=== PATIENT | male | born 1965 | race Caucasian/White ===

== ENCOUNTER → 2017-07-24 | Outpatient (CLI) | payer OTHER ==
--- NOTE | 2017-07-24 16:59 | CONS ---
CONSULTATION Consultation note for sleep apnea. PRIMARY CARE PHYSICIAN: Dr. Valderrama. A 52-year-old male patient who came to the office because of concerns of sleep apnea. He has very disrupted sleep. The patient gets home in the afternoon at around 6 cm. He drinks somewhere between 6-15 beers. He goes to bed around 8:30 wakes up and gets out of bed around 5:30. He can fall asleep easily. However his sleep is fragmented and wakes up constantly throughout the night. His has noted increased respiratory effort and at times he wakes up gasping for air. At the same time he has been snoring excessively. During the day he has excessive hypersomnia and sleepiness with [place] score of 16. Sleep is fragmented as mentioned and the patient wakes up, either due to increased respiratory efforts and other times for urination. No recent weight gain or weight loss. He has been a mouth breather all his life. He has smoked cigarettes in addition. PAST MEDICAL HISTORY: 1. Hypertension. 2. Acid reflux. PAST SURGICAL HISTORY: Includes appendectomy. DRUG ALLERGIES: PENICILLIN. OUTPATIENT MEDICATION LIST: Includes lisinopril 20 mg p.o. twice a day, bisoprolol 25 mg p.o. daily, omeprazole 20 mg p.o. daily and fish oil. SOCIAL HISTORY: The patient is a 1-1/2 pack a day smoker. He drinks 6-15 beers on a daily basis. No history of IV drugs. No history of substance abuse FAMILY HISTORY: Negative for sleep apnea. REVIEW OF SYSTEMS: 12-point review of system was done. Positive findings are mentioned above in the history of present illness. The patient admits to have excessive fatigue and sleepiness. The patient admits to have snoring and apneas at night. He has nocturia. He grinds his teeth. He has occasional heartburns and restlessness in his lower extremities. He does not do any sleep talking or sleepwalking. No anxiety or panic attack. No palpitations. No chest pain. No claustrophobia. EXAMINATION: BP is 133/73, pulse 66, respirations 16, temperature 97.3 saturation 96% on room air. Weight is 229. Height is 5 feet 10 inches. Neck size is 16 inches. BMI 32.3. GENERAL APPEARANCE: Calm, comfortable. HEENT Mallampati class IV. There is no goiter or neck masses. Head is atraumatic, atraumatic. LUNGS: Clear to auscultation. HEART: Sounds regular rhythm. Normal S1, S2. No S3, S4. No murmurs. ABDOMEN: Soft, nontender. No organomegaly. No direct tenderness, rebound or guarding. EXTREMITIES: No edema. No cyanosis or clubbing. NEUROLOGIC: Alert and oriented x3. No focal neurological deficits. Skin is negative for ulceration wounds. IMPRESSION: 1. Obstructive sleep apnea suspected clinically. The patient's sleep is severely fragmented. The patient has frequent nocturnal arousals. This is partly related to his sleep breathing disorder. Alcohol ingestion in excessive amounts also is contributing to his frequent nocturnal arousals and increased nocturia. 2. Hypertension. PLAN: 1. Recommend cutting down on alcohol consumption especially during bedtime. 2. Implement good sleep hygiene measures. 3. Proceed with a screening polysomnogram looking for any significant sleep breathing disorder and treat accordingly. MARTY / BESSN: [id number] /
== END ==
LOC: SLEEP 13:51
PROVIDERS: ATTEND Internal Medicine Critical Care Medicine
DX: G47.30 Sleep apnea, unspecified (principal); I10 Essential (primary) hypertension; F17.200 Nicotine dependence, unspecified, uncomplicated; Z79.899 Other long term (current) drug therapy; Z88.0 Allergy status to penicillin
CPT/HCPCS: 99211

== ENCOUNTER 2017-11-06 10:56 | Inpatient (IN) | payer OTHER ==
[2017-11-06] MEDS ORDERED: SODIUM CHLORIDE 0.9% 1,000 ML IV STA (11:19)
[2017-11-06] MEDS ORDERED: SODIUM CHLORIDE 0.9% 500 ML IV STA (11:19)
[2017-11-06] MEDS ORDERED: DILTIAZEM 5 MG/ML 5 ML VIAL IVP STA (11:20)
[2017-11-06] MEDS ORDERED: DILTIAZEM 125 MG in SODIUM CHLORIDE 0.9% 100 ML IV ONE (11:20)
--- NOTE | 2017-11-06 11:48 | ED ---
General Adult HPI - General Chief complaint: Shortness of Breath Stated complaint: AFIB Time Seen by Provider: 11/06/17 11:18 Source: patient, RN notes reviewed, old records reviewed Mode of arrival: ambulatory Limitations: no limitations - History of Present Illness Initial comments: This is a 52-year-old male to the ER for evaluation. Patient comes in with significant shortness of breath weakness and lightheadedness. Patient denies chest pain. Patient states that significant shortness breath going on for about 2 weeks now. No fevers. Mild nausea and occasional feeling of sickness. Denies chest pain. Patient states his exertional shortness of breath is significantly increasing. Patient does have asked history of smoking and has not smoked since this past weekend. No recent change in medications. - Related Data Home Medications Medication Instructions Recorded Confirmed Bisoprolol-Hctz 5-6.25 mg [Ziac 1 tab PO DAILY 01/22/14 11/06/17 5-6.25 MG] Lisinopril [Zestril] 40 mg PO DAILY 01/22/14 11/06/17 Multivitamin [Men's Multi-Vitamin] 1 tab PO DAILY 01/22/14 11/06/17 Brenda-C 500 mg PO DAILY 11/06/17 11/06/17 Fish Oil/Dha/Epa [Fish Oil 1,200 1 cap PO DAILY 11/06/17 11/06/17 mg Fish Oil] Omeprazole [PriLOSEC] 20 mg PO DAILY 11/06/17 11/06/17 Allergies Allergy/AdvReac Type Severity Reaction Status Date / Time Penicillins Allergy Unknown Verified 11/06/17 11:49 Childhood Review of Systems ROS Statement: Those systems with pertinent positive or pertinent negative responses have been documented in the HPI. ROS Other: All systems not noted in ROS Statement are negative. Past Medical History Past Medical History: GERD/Reflux, GI Bleed, Hypertension History of Any Multi-Drug Resistant Organisms: None Reported Past Surgical History: Appendectomy Past Anesthesia/Blood Transfusion Reactions: No Reported Reaction Past Psychological History: No Psychological Hx Reported Smoking Status: Current every day smoker Past Alcohol Use History: Daily Past Drug Use History: None Reported General Exam Limitations: no limitations General appearance: alert, in no apparent distress Head exam: Present: atraumatic, normocephalic, normal inspection Eye exam: Present: normal appearance, PERRL, EOMI. Absent: scleral icterus, conjunctival injection, periorbital swelling ENT exam: Present: normal exam, mucous membranes moist Neck exam: Present: normal inspection. Absent: tenderness, meningismus, lymphadenopathy Respiratory exam: Present: normal lung sounds bilaterally, wheezes. Absent: respiratory distress, rales, rhonchi, stridor Cardiovascular Exam: Present: tachycardia, irregular rhythm, normal heart sounds. Absent: systolic murmur, diastolic murmur, rubs, gallop, clicks GI/Abdominal exam: Present: soft, normal bowel sounds. Absent: distended, tenderness, guarding, rebound, rigid Extremities exam: Present: normal inspection, full ROM, normal capillary refill. Absent: tenderness, pedal edema, joint swelling, calf tenderness Back exam: Present: normal inspection Neurological exam: Present: alert, oriented X3, CN II-XII intact Psychiatric exam: Present: normal affect, normal mood Skin exam: Present: warm, dry, intact, normal color. Absent: rash Course Vital Signs 11/06/17 11/06/17 11:19 11:59 Temperature 98.6 F Pulse Rate 114 H 115 H Respiratory 20 20 Rate Blood Pressure 128/80 130/78 O2 Sat by Pulse 95 96 Oximetry - Reevaluation(s) Reevaluation #1: 11/06/17 12:40 Patient responding well to heart rate treatment and control Reevaluation #2: 11/06/17 12:40 Patient and family explained at length diagnosis and treatment. Questions are answered EKG Findings - EKG Comments: EKG Findings:: EKG shows A. fib with RVR rate 129, QRS 100, QTC 413 Medical Decision Making - Medical Decision Making 52 male the ER for evaluation of shortness of breath, new onset atrial fibrillation, nature for ablation with RVR. Patient be admitted for heart rate control cardiology evaluation - Lab Data Result diagrams: 11/06/17 11:30 11/06/17 11:30 Lab Results 11/06/17 11/06/17 11/06/17 Range/Units 11:30 11:30 11:30 WBC 12.0 H (3.8-10.6) k/uL RBC 4.50 (4.30-5.90) m/uL Hgb 14.0 (13.0-17.5) gm/dL Hct 42.0 (39.0-53.0) % MCV 93.2 (80.0-100.0) fL MCH 31.2 (25.0-35.0) pg MCHC 33.4 (31.0-37.0) g/dL RDW 13.8 (11.5-15.5) % Plt Count 186 (150-450) k/uL Neutrophils % 77 % Lymphocytes % 12 % Monocytes % 7 % Eosinophils % 1 % Basophils % 1 % Neutrophils # 9.2 H (1.3-7.7) k/uL Lymphocytes # 1.4 (1.0-4.8) k/uL Monocytes # 0.9 (0-1.0) k/uL Eosinophils # 0.1 (0-0.7) k/uL Basophils # 0.1 (0-0.2) k/uL PT (9.0-12.0) sec INR (<1.2) APTT (22.0-30.0) sec Sodium 139 (137-145) mmol/L Potassium 3.9 (3.5-5.1) mmol/L Chloride 106 (98-107) mmol/L Carbon Dioxide 24 (22-30) mmol/L Anion Gap 9 mmol/L BUN 12 (9-20) mg/dL Creatinine 0.69 (0.66-1.25) mg/dL Est GFR (MDRD) Af Amer >60 (>60 ml/min/1.73 sqM) Est GFR (MDRD) Non-Af >60 (>60 ml/min/1.73 sqM) Glucose 109 H (74-99) mg/dL Calcium 9.7 (8.4-10.2) mg/dL Magnesium 1.6 (1.6-2.3) mg/dL Total Bilirubin 2.5 H (0.2-1.3) mg/dL AST 14 L (17-59) U/L ALT 38 (21-72) U/L Alkaline Phosphatase 68 (38-126) U/L Total Creatine Kinase 65 (55-170) U/L CK-MB (CK-2) 0.5 (0.0-2.4) ng/mL CK-MB (CK-2) Rel Index 0.8 Troponin I <0.012 (0.000-0.034) ng/mL Total Protein 6.4 (6.3-8.2) g/dL Albumin 3.8 (3.5-5.0) g/dL TSH 0.646 (0.465-4.680) mIU/L 11/06/17 Range/Units 11:30 WBC (3.8-10.6) k/uL RBC (4.30-5.90) m/uL Hgb (13.0-17.5) gm/dL Hct (39.0-53.0) % MCV (80.0-100.0) fL MCH (25.0-35.0) pg MCHC (31.0-37.0) g/dL RDW (11.5-15.5) % Plt Count (150-450) k/uL Neutrophils % % Lymphocytes % % Monocytes % % Eosinophils % % Basophils % % Neutrophils # (1.3-7.7) k/uL Lymphocytes # (1.0-4.8) k/uL Monocytes # (0-1.0) k/uL Eosinophils # (0-0.7) k/uL Basophils # (0-0.2) k/uL PT 10.3 (9.0-12.0) sec INR 1.1 (<1.2) APTT 23.6 (22.0-30.0) sec Sodium (137-145) mmol/L Potassium (3.5-5.1) mmol/L Chloride (98-107) mmol/L Carbon Dioxide (22-30) mmol/L Anion Gap mmol/L BUN (9-20) mg/dL Creatinine (0.66-1.25) mg/dL Est GFR (MDRD) Af Amer (>60 ml/min/1.73 sqM) Est GFR (MDRD) Non-Af (>60 ml/min/1.73 sqM) Glucose (74-99) mg/dL Calcium (8.4-10.2) mg/dL Magnesium (1.6-2.3) mg/dL Total Bilirubin (0.2-1.3) mg/dL AST (17-59) U/L ALT (21-72) U/L Alkaline Phosphatase (38-126) U/L Total Creatine Kinase (55-170) U/L CK-MB (CK-2) (0.0-2.4) ng/mL CK-MB (CK-2) Rel Index Troponin I (0.000-0.034) ng/mL Total Protein (6.3-8.2) g/dL Albumin (3.5-5.0) g/dL TSH (0.465-4.680) mIU/L - Radiology Data Radiology results: report reviewed (Chest x-rays negative for acute disease), image reviewed Disposition Clinical Impression: Atrial fibrillation with RVR Disposition: ADMITTED IP TO THIS HOSP Condition: Good Referrals: Chandler Valderrama MD [Primary Care Provider] - 1-2 days
[2017-11-06 11:50] LABS: Basophils # (A) 0.1 k/uL (0-0.2); Basophils % (A) 1 %; Eosinophils # (A) 0.1 k/uL (0-0.7); Eosinophils % (A) 1 %; Lymphocytes # (A) 1.4 k/uL (1.0-4.8); Lymphocytes % (A) 12 %; MCH 31.2 pg (25.0-35.0); MCHC 33.4 g/dL (31.0-37.0); MCV 93.2 fL (80.0-100.0); Mean Platelet Volume 8.5; Monocytes # (A) 0.9 k/uL (0-1.0); Monocytes % (A) 7 %; Neutrophils # (A) 9.2 k/uL (1.3-7.7); Neutrophils % (A) 77 %; Platelet Count 186 k/uL (150-450); RDW 13.8 % (11.5-15.5)
[2017-11-06 11:58] LABS: INR 1.1 (<1.2); Partial Thromboplastin Time 23.6 sec (22.0-30.0); Prothrombin Time 10.3 sec (9.0-12.0)
[2017-11-06 12:05] LABS: ALT 38 U/L (21-72); AST 14 U/L (17-59); Albumin 3.8 g/dL (3.5-5.0); Alkaline Phosphatase 68 U/L (38-126); Anion Gap 9 mmol/L; Blood Urea Nitrogen 12 mg/dL (9-20); Calcium 9.7 mg/dL (8.4-10.2); Carbon Dioxide 24 mmol/L (22-30); Chloride 106 mmol/L (98-107); Glucose 109 mg/dL (74-99); Potassium 3.9 mmol/L (3.5-5.1); Sodium 139 mmol/L (137-145); Total Bilirubin 2.5 mg/dL (0.2-1.3); Total Protein 6.4 g/dL (6.3-8.2)
[2017-11-06 12:20] LABS: Creatine Kinase 65 U/L (55-170)
[2017-11-06 12:31] LABS: Creatine Kinase MB 0.5 ng/mL (0.0-2.4); Troponin I <0.012 ng/mL (0.000-0.034)
[2017-11-06] MEDS ORDERED: NITROGLYCERIN SL TABS 0.4 MG TAB SUBLINGUAL PRN (12:38)
[2017-11-06] MEDS ORDERED: ASPIRIN 81 MG PO STA (12:38)
[2017-11-06] MEDS ORDERED: HEPARIN SODIUM,PORCINE 5,000 UNIT/ML 1 ML VIAL IV ONE (12:38)
--- NOTE | 2017-11-06 12:40 | XR ---
EXAMINATION TYPE: XR chest 2V DATE OF EXAM: 11/06/2017 COMPARISON: 06/22/2011 TECHNIQUE: PA and lateral views submitted. HISTORY: Shortness of breath FINDINGS: The heart is enlarged and there is a diffuse interstitial pattern. Small bilateral effusion and basil ar infiltrate or atelectasis noted. Hypertrophic and degenerative change of the spine. No pneumothora x. Arthropathy of the shoulders. IMPRESSION: 1. Bilateral infiltrate and small effusion with cardiomegaly. Underlying venous congestion in the dif ferential diagnosis.
[2017-11-06] MEDS: HEPARIN SOD,PORK IN 0.45% NACL 25,000 UNIT in 0.45% NACL 1 500ML.BAG IV SCH (13:11)
[2017-11-06 17:27] LABS: D-Dimer 0.88 mg/L FEU (<0.60)
[2017-11-06 17:31] LABS: Partial Thromboplastin Time 27.1 sec (22.0-30.0)
[2017-11-06 17:43] LABS: Creatine Kinase 60 U/L (55-170)
[2017-11-06] MEDS: HEPARIN SODIUM,PORCINE 5,000 UNIT/ML 1 ML VIAL IV PRN (17:47)
[2017-11-06 17:54] LABS: Creatine Kinase MB 0.5 ng/mL (0.0-2.4); Troponin I <0.012 ng/mL (0.000-0.034)
[2017-11-06] MEDS: METOPROLOL TARTRATE 50 MG TAB PO SCH (19:08)
[2017-11-06] MEDS: AZITHROMYCIN 250 MG TAB PO SCH (20:55)
[2017-11-06] MEDS: cefTRIAXone IN SWFI 1,000 MG/10 ML SYRINGE IVP SCH (20:55)
[2017-11-07 00:29] LABS: Creatine Kinase 60 U/L (55-170)
[2017-11-07 00:42] LABS: Creatine Kinase MB 0.5 ng/mL (0.0-2.4); Troponin I <0.012 ng/mL (0.000-0.034)
[2017-11-07 06:36] LABS: Platelet Count 177 k/uL (150-450)
[2017-11-07 06:53] LABS: Cholesterol 143 mg/dL (<200); HDL Cholesterol 39 mg/dL (40-60); LDL Cholesterol,Calculated 91 mg/dL (0-99); Triglycerides 65 mg/dL (<150)
[2017-11-07] MEDS: HEPARIN SODIUM,PORCINE 5,000 UNIT/ML 1 ML VIAL IV PRN ×2 (07:27→15:12)
[2017-11-07] MEDS: METOPROLOL TARTRATE 50 MG TAB PO SCH ×2 (07:29→22:25)
[2017-11-07] MEDS: AZITHROMYCIN 250 MG TAB PO SCH (07:30)
--- NOTE | 2017-11-07 07:44 | P.HPIM ---
History of Present Illness H&P Date: 11/07/17 Chief Complaint: Shortness of breath. This is a history of physical and 52-year-old white male with history of hypertension who came to me yesterday with significant short of breath. EKG showed new onset atrial fibrillation. The patient was admitted and is now on Cardizem drip. The patient had significant dyspnea and has bilateral pleural effusions. He's been covered for pneumonia at this time. No significant fever or chills. No overt chest pressure per se. No voiding difficulties are noted. Review of Systems Constitutional: Denies chills, Denies fever Eyes: denies blurred vision, denies pain Ears, nose, mouth and throat: Denies headache, Denies sore throat Cardiovascular: Reports chest pain, Reports dyspnea on exertion, Denies shortness of breath Respiratory: Denies cough Gastrointestinal: Denies abdominal pain, Denies diarrhea, Denies nausea, Denies vomiting Integumentary: Denies pruritus, Denies rash Neurological: Denies numbness, Denies weakness Psychiatric: Denies anxiety, Denies depression Past Medical History Past Medical History: GERD/Reflux, GI Bleed, Hypertension Additional Past Medical History / Comment(s): Upper GI bleed, diverticular dx. History of Any Multi-Drug Resistant Organisms: None Reported Past Surgical History: Appendectomy Additional Past Surgical History / Comment(s): 2013 colonoscopy, EGD Past Anesthesia/Blood Transfusion Reactions: No Reported Reaction Past Psychological History: No Psychological Hx Reported Additional Psychological History / Comment(s): Pt resides with his spouse of almost 30 yrs. He is independent. Smoking Status: Current every day smoker Past Alcohol Use History: Daily Additional Past Alcohol Use History / Comment(s): Pt states he started smoking in about 1981 and is between a pack and a pack and a half a day smoker. He states he drinks beer daily. Amount varies, depending on the day anywhere from 6 -12 beers. Past Drug Use History: None Reported - Past Family History Father Family Medical History: Congestive Heart Failure (CHF) Additional Family Medical History / Comment(s): Father of CHF at the age of 68yrs. Mother Additional Family Medical History / Comment(s): Mother at the age of 62 or 63 yrs from myasthenia gravis. Medications and Allergies Home Medications Medication Instructions Recorded Confirmed Type Bisoprolol-Hctz 5-6.25 mg [Ziac 1 tab PO DAILY 01/22/14 11/06/17 History 5-6.25 MG] Lisinopril [Zestril] 40 mg PO DAILY 01/22/14 11/06/17 History Multivitamin [Men's Multi-Vitamin] 1 tab PO DAILY 01/22/14 11/06/17 History Brenda-C 500 mg PO DAILY 11/06/17 11/06/17 History Fish Oil/Dha/Epa [Fish Oil 1,200 1 cap PO DAILY 11/06/17 11/06/17 History mg Fish Oil] Omeprazole [PriLOSEC] 20 mg PO DAILY 11/06/17 11/06/17 History Allergies Allergy/AdvReac Type Severity Reaction Status Date / Time Penicillins Allergy Unknown Verified 11/06/17 11:49 Childhood Physical Exam Vitals: Vital Signs Temp Pulse Pulse Resp BP BP BP 11/07/17 03:33 97 F L 93 16 111/75 11/07/17 00:00 97.1 F L 99 16 118/78 11/06/17 21:00 11/06/17 20:00 97.1 F L 89 16 109/68 11/06/17 16:00 96.9 F L 99 18 116/71 11/06/17 15:01 97.6 F 91 18 128/76 11/06/17 14:28 93 18 112/80 11/06/17 12:52 97.9 F 95 18 127/78 11/06/17 11:59 115 H 20 130/78 11/06/17 11:19 98.6 F 114 H 20 128/80 Pulse Ox 11/07/17 03:33 93 L 11/07/17 00:00 95 11/06/17 21:00 94 L 11/06/17 20:00 96 11/06/17 16:00 95 11/06/17 15:01 96 11/06/17 14:28 95 11/06/17 12:52 97 11/06/17 11:59 96 11/06/17 11:19 95 Intake and Output 11/06/17 11/07/17 11/07/17 22:59 06:59 14:59 Intake Total 92 179.648 221.272 Balance 92 179.648 221.272 Intake: Intake, IV Titration 92 179.648 221.272 Amount Heparin Sod,Pork in 0.45% 92 179.648 221.272 NaCl 25,000 unit In 0.45 % NaCl 1 500ml.bag @ 9.59 UNITS/KG/HR 20 mls/hr IV .Q24H [facility] Rx#:[id number] Other: Voiding Method Toilet Toilet # Voids 1 1 Weight 104.5 kg - Constitutional General appearance: no acute distress - EENT Eyes: EOMI - Neck Neck: no lymphadenopathy - Respiratory Respiratory: bilateral: CTA - Cardiovascular Rhythm: irregularly irregular Heart sounds: normal: S1, S2 - Gastrointestinal General gastrointestinal: no organomegaly, soft, no tenderness Results CBC & Chem 7: 11/07/17 06:04 11/06/17 11:30 Labs: Abnormal Lab Results - Last 24 Hours (Table) 11/06/17 11/06/17 11/06/17 Range/Units 11:30 11:30 17:08 WBC 12.0 H (3.8-10.6) k/uL Neutrophils # 9.2 H (1.3-7.7) k/uL APTT (22.0-30.0) sec D-Dimer 0.88 H (<0.60) mg/L FEU Glucose 109 H (74-99) mg/dL Total Bilirubin 2.5 H (0.2-1.3) mg/dL AST 14 L (17-59) U/L HDL Cholesterol (40-60) mg/dL 11/07/17 11/07/17 Range/Units 06:04 06:04 WBC (3.8-10.6) k/uL Neutrophils # (1.3-7.7) k/uL APTT 30.3 H (22.0-30.0) sec D-Dimer (<0.60) mg/L FEU Glucose (74-99) mg/dL Total Bilirubin (0.2-1.3) mg/dL AST (17-59) U/L HDL Cholesterol 39 L (40-60) mg/dL Thrombosis Risk Factor Assmnt - Choose All That Apply Any of the Below Risk Factors Present?: Yes Each Factor Represents 1 point: Age 41-60 years, Obesity (BMI >25) Other Risk Factors: No Other congenital or acquired thrombophilia - If yes, enter type in comment: No Thrombosis Risk Factor Assessment Total Risk Factor Score: 2 Thrombosis Risk Factor Assessment Level: Low Risk Assessment and Plan (1) Hypertension Current Visit: Yes Status: Acute Code(s): I10 - ESSENTIAL (PRIMARY) HYPERTENSION SNOMED Code(s): 81824527 (2) Atrial fibrillation with RVR Current Visit: Yes Status: Acute Code(s): I48.91 - UNSPECIFIED ATRIAL FIBRILLATION SNOMED Code(s): 023970637001185 Plan: The patient presents with new onset atrial fibrillation. Question need increase Cardizem drip today. Otherwise, mule developer consulted. New. Check CBC and CMP in a.m. Thyroid studies are pending. Await echocardiogram. CODE STATUS is full. See orders otherwise.
[2017-11-07] MEDS: DILTIAZEM 125 MG in SODIUM CHLORIDE 0.9% 100 ML IV SCH ×2 (08:00→22:16)
[2017-11-07] MEDS: HYDROcodone/APAP 5-325MG 1 EACH TAB PO PRN ×3 (08:08→22:32)
[2017-11-07] MEDS: cefTRIAXone IN SWFI 1,000 MG/10 ML SYRINGE IVP SCH (08:11)
--- NOTE | 2017-11-07 08:31 | P.CRDCN ---
History of Present Illness Consult date: 11/07/17 Requesting physician: Chandler Valderrama Consult reason: atrial fibrillation Chief complaint: Shortness of breath History of present illness: This a 52-year-old gentleman with history of hypertension, nicotine use, patient's smokes one to 2 packs of cigarettes per day, 6-12 beers per day, strong family history of premature coronary artery disease. 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 He did notice as of last weekend that he would become quite short of breath when he was climbing stairs, he then states on Sunday, that he began coughing, felt as though he may have pneumonia which she has had in the past. He took some Mucinex and states that he slept all day Sunday, on Sunday he again began coughing, he states initially he was coughing clear sputum then it changed to dark sputum. He also states that he continued to be significantly short of breath. He went to see his primary care physician, Dr. Valderrama, and EKG was performed in the office which showed atrial fibrillation with rapid ventricular response and hence the patient was admitted to the hospital for further evaluation. EKG on arrival here showed atrial fibrillation with a rapid ventricular response. White blood cell count 12.0 , hemoglobin 14, platelet count 186, d-dimer 0.8, potassium 3.9, BUN 12, creatinine 0.6. Magnesium 1.6. Troponins negative 3. BNP 2960. Chest x-ray revealed bilateral infiltrate and small effusion with cardiomegaly. Underlying venous congestion in the differential as well. Blood pressure 112/60, heart rate this morning in the 90s, 95% on 2 L of oxygen. Patient is currently on IV heparin as well as Cardizem drip at 10 mg per hour. IV antibiotics were initiated, along with Zithromax initiated. At the time of my examination this morning, patient continues to cough of dark sputum, mild shortness of breath, mild palpitations. Past Medical History Past Medical History: GERD/Reflux, GI Bleed, Hypertension Additional Past Medical History / Comment(s): Upper GI bleed, diverticular dx. History of Any Multi-Drug Resistant Organisms: None Reported Past Surgical History: Appendectomy Additional Past Surgical History / Comment(s): 2013 colonoscopy, EGD Past Anesthesia/Blood Transfusion Reactions: No Reported Reaction Past Psychological History: No Psychological Hx Reported Additional Psychological History / Comment(s): Pt resides with his spouse of almost 30 yrs. He is independent. Smoking Status: Current every day smoker Past Alcohol Use History: Daily Additional Past Alcohol Use History / Comment(s): Pt states he started smoking in about 1981 and is between a pack and a pack and a half a day smoker. He states he drinks beer daily. Amount varies, depending on the day anywhere from 6 -12 beers. Past Drug Use History: None Reported - Past Family History Father Family Medical History: Congestive Heart Failure (CHF) Additional Family Medical History / Comment(s): Father of CHF at the age of 68yrs. Mother Additional Family Medical History / Comment(s): Mother at the age of 62 or 63 yrs from myasthenia gravis. Medications and Allergies Home Medications Medication Instructions Recorded Confirmed Type Bisoprolol-Hctz 5-6.25 mg [Ziac 1 tab PO DAILY 01/22/14 11/06/17 History 5-6.25 MG] Lisinopril [Zestril] 40 mg PO DAILY 01/22/14 11/06/17 History Multivitamin [Men's Multi-Vitamin] 1 tab PO DAILY 01/22/14 11/06/17 History Brenda-C 500 mg PO DAILY 11/06/17 11/06/17 History Fish Oil/Dha/Epa [Fish Oil 1,200 1 cap PO DAILY 11/06/17 11/06/17 History mg Fish Oil] Omeprazole [PriLOSEC] 20 mg PO DAILY 11/06/17 11/06/17 History Allergies Allergy/AdvReac Type Severity Reaction Status Date / Time Penicillins Allergy Unknown Verified 11/06/17 11:49 Childhood Physical Exam Vitals: Vital Signs Temp Pulse Pulse Resp BP BP BP 11/07/17 07:55 97.2 F L 78 20 110/70 11/07/17 03:33 97 F L 93 16 111/75 11/07/17 00:00 97.1 F L 99 16 118/78 11/06/17 21:00 11/06/17 20:00 97.1 F L 89 16 109/68 11/06/17 16:00 96.9 F L 99 18 116/71 11/06/17 15:01 97.6 F 91 18 128/76 11/06/17 14:28 93 18 112/80 11/06/17 12:52 97.9 F 95 18 127/78 11/06/17 11:59 115 H 20 130/78 11/06/17 11:19 98.6 F 114 H 20 128/80 Pulse Ox 11/07/17 07:55 91 L 11/07/17 03:33 93 L 11/07/17 00:00 95 11/06/17 21:00 94 L 11/06/17 20:00 96 11/06/17 16:00 95 11/06/17 15:01 96 11/06/17 14:28 95 11/06/17 12:52 97 11/06/17 11:59 96 11/06/17 11:19 95 Intake and Output 11/06/17 11/07/17 11/07/17 22:59 06:59 14:59 Intake Total 92 179.648 221.272 Balance 92 179.648 221.272 Intake: Intake, IV Titration 92 179.648 221.272 Amount Heparin Sod,Pork in 0.45% 92 179.648 221.272 NaCl 25,000 unit In 0.45 % NaCl 1 500ml.bag @ 9.59 UNITS/KG/HR 20 mls/hr IV .Q24H [facility] Rx#:[id number] Other: Voiding Method Toilet Toilet # Voids 1 1 Weight 104.5 kg PHYSICAL EXAMINATION: HEENT: Head is atraumatic, normocephalic. Pupils equal, round. Neck is supple. There is no elevated jugular venous pressure. HEART EXAMINATION: Heart S1 and S2 irregularly irregular CHEST EXAMINATION: And's reveal decreased air exchange with fine crackles to the bases. ABDOMEN: Soft, nontender. Bowel sounds are heard. No organomegaly noted. EXTREMITIES: 2+ peripheral pulses with no evidence of peripheral edema and no calf tenderness noted. NEUROLOGIC patient is awake, alert and oriented -3. . Results 11/07/17 06:04 11/06/17 11:30 Cardiac Enzymes 11/06/17 11/06/17 11/06/17 Range/Units 11:30 11:30 17:08 AST 14 L (17-59) U/L CK-MB (CK-2) 0.5 0.5 (0.0-2.4) ng/mL Troponin I <0.012 <0.012 (0.000-0.034) ng/mL 11/06/17 Range/Units 23:54 AST (17-59) U/L CK-MB (CK-2) 0.5 (0.0-2.4) ng/mL Troponin I <0.012 (0.000-0.034) ng/mL Coagulation 11/06/17 11/06/17 11/06/17 Range/Units 11:30 17:08 23:54 PT 10.3 (9.0-12.0) sec APTT 23.6 27.1 27.9 (22.0-30.0) sec 11/07/17 Range/Units 06:04 PT (9.0-12.0) sec APTT 30.3 H (22.0-30.0) sec Lipids 11/07/17 Range/Units 06:04 Triglycerides 65 (<150) mg/dL Cholesterol 143 (<200) mg/dL HDL Cholesterol 39 L (40-60) mg/dL CBC 11/06/17 11/07/17 Range/Units 11:30 06:04 WBC 12.0 H (3.8-10.6) k/uL RBC 4.50 (4.30-5.90) m/uL Hgb 14.0 (13.0-17.5) gm/dL Hct 42.0 (39.0-53.0) % Plt Count 186 177 (150-450) k/uL Comprehensive Metabolic Panel 11/06/17 Range/Units 11:30 Sodium 139 (137-145) mmol/L Potassium 3.9 (3.5-5.1) mmol/L Chloride 106 (98-107) mmol/L Carbon Dioxide 24 (22-30) mmol/L BUN 12 (9-20) mg/dL Creatinine 0.69 (0.66-1.25) mg/dL Glucose 109 H (74-99) mg/dL Calcium 9.7 (8.4-10.2) mg/dL AST 14 L (17-59) U/L ALT 38 (21-72) U/L Alkaline Phosphatase 68 (38-126) U/L Total Protein 6.4 (6.3-8.2) g/dL Albumin 3.8 (3.5-5.0) g/dL Current Medications Generic Name Dose Route Start Last Admin Trade Name Freq PRN Reason Stop Dose Admin Hydrocodone Bitart/Acetaminophen 1 each 11/07/17 07:53 Vanzant 5-325 PO Q6HR PRN Pain Aspirin 325 mg 11/07/17 09:00 11/07/17 07:30 Aspirin PO 325 mg DAILY [facility] Administration Azithromycin 250 mg 11/06/17 19:00 11/07/17 07:30 Zithromax PO 250 mg DAILY [facility] Administration Ceftriaxone Sodium 1,000 mg 11/06/17 19:30 11/06/17 20:55 Rocephin IVP 1,000 mg Q24HR [facility] Administration Heparin Sodium (Porcine) 0 unit 11/06/17 12:38 11/07/17 07:27 Heparin IV 4,000 unit Q6HR PRN Administration Low PTT Protocol Heparin Sodium/Sodium Chloride 500 mls @ 20 mls/hr 11/06/17 12:45 11/07/17 07 :25 25,000 unit/ Sodium Chloride IV 18.6 units/kg/hr .Q24H [facility] 38.8 mls/hr Protocol Titration 9.59 UNITS/KG/HR Diltiazem HCl 125 mg/ Sodium 125 mls @ 10 mls/hr 11/07/17 08:00 Chloride IV .[id number] [facility] 10 MG/HR Lisinopril 40 mg 11/07/17 09:00 11/07/17 07:29 Zestril PO 40 mg DAILY [facility] Administration Metoprolol Tartrate 50 mg 11/06/17 21:00 11/07/17 07:29 Lopressor PO 50 mg BID [facility] Administration Nitroglycerin 0.4 mg 11/06/17 12:38 Nitrostat SUBLINGUAL Q5M PRN Chest Pain Intake and Output 11/06/17 11/07/17 11/07/17 22:59 06:59 14:59 Intake Total 92 179.648 221.272 Balance 92 179.648 221.272 Intake: Intake, IV Titration 92 179.648 221.272 Amount Heparin Sod,Pork in 0.45% 92 179.648 221.272 NaCl 25,000 unit In 0.45 % NaCl 1 500ml.bag @ 9.59 UNITS/KG/HR 20 mls/hr IV .Q24H [facility] Rx#:[id number] Other: Voiding Method Toilet Toilet # Voids 1 1 Weight 104.5 kg 11/07/17 06:04 11/06/17 11:30 EKG Interpretations (text) EKG shows atrial fibrillation with a rapid ventricular response Assessment and Plan Plan: Assessment and plan #1 atrial fibrillation with rapid ventricular response, appears to be of new onset for the patient. Currently on IV heparin and Cardizem drips #2 pneumonia #3 hypertension #4 nicotine dependence, patient's smokes one to 2 packs of cigarettes per day #5 EtOH use, patient drinks 6-12 beers per day #6 family history of premature coronary artery disease in 2 of his brothers #7 diverticulosis Plan We will obtain an echocardiogram with Doppler study as well as free T4 and TSH level. We will check into the newer anticoagulants for the patient.It was explained to the patient the need for anticoagulation for stroke prevention. Patient has been initiated on metoprolol, if the rate remained stable, we'll discontinue the Cardizem drip. Further recommendations will be based on these findings and the patient's clinical course. DNP note has been reviewed, I agree with a documented findings and plan of care. Patient was seen and examined.
[2017-11-07] MEDS ORDERED: LISINOPRIL 20 MG TAB PO SCH (09:00)
[2017-11-07] MEDS ORDERED: ASPIRIN 325 MG TAB PO SCH (09:00)
--- NOTE | 2017-11-07 10:08 | ECHOF ---
Referral Reason:LV function MEASUREMENTS -------- HEIGHT: 180.3 cm WEIGHT: 104.3 kg BP: 111/75 RVIDd: 3.4 cm (< 3.3) IVSd: 1.2 cm (0.6 - 1.1) LVIDd: 4.4 cm (3.9 - 5.3) LVPWd: 1.1 cm (0.6 - 1.1) IVSs: 1.1 cm LVIDs: 2.4 cm LVPWs: 1.8 cm LAESV Index (A-L): 63.49 ml/m Ao Diam: 3.9 cm (2.0 - 3.7) AV Cusp: 2.3 cm (1.5 - 2.6) LA Diam: 5.0 cm (2.7 - 3.8) RAP: 15.00 mmHg RVSP: 41.73 mmHg FINDINGS -------- Atrial fibrillation. This was a technically good study. The left ventricular size is normal. There is mild concentric left ventricular hypertrophy. Overa ll left ventricular systolic function is normal with, an EF between 55 - 60 %. The right ventricle is mildly enlarged. LA is severely dilated >40 ml/m2 RA appears enlarged. Aortic valve is trileaflet and is mildly thickened. The mitral valve leaflets are moderately thickened. Mild mitral annular calcification present. Se reece mitral regurgitation is present.posterior leaflet is fixedand not mobile. Mild tricuspid regurgitation present. There is mild pulmonary hypertension. The right ventricular systolic pressure, as measured by Doppler, is 41.73mmHg. Pulmonic valve appears structurally normal. The aortic root size is normal. The inferior vena cava is mildly dilated. The pericardium is normal. CONCLUSIONS -------- 1. Atrial fibrillation. 2. This was a technically good study. 3. The left ventricular size is normal. 4. There is mild concentric left ventricular hypertrophy. 5. Overall left ventricular systolic function is normal with, an EF between 55 - 60 %. 6. The right ventricle is mildly enlarged. 7. LA is severely dilated >40 ml/m2 8. RA appears enlarged. 9. Aortic valve is trileaflet and is mildly thickened. 10. The mitral valve leaflets are moderately thickened. 11. Mild mitral annular calcification present. 12. Severe mitral regurgitation is present. 13. Mild tricuspid regurgitation present. 14. There is mild pulmonary hypertension. 15. The right ventricular systolic pressure, as measured by Doppler, is 41.73mmHg. 16. Pulmonic valve appears structurally normal. 17. The aortic root size is normal. 18. The inferior vena cava is mildly dilated. 19. The pericardium is normal. COUNTERINTELLIGENCE SPECIALIST: Amy Linares RDCS
[2017-11-07] MEDS: FUROSEMIDE 10 MG/ML 4 ML VIAL IV SCH ×2 (15:12→22:25)
[2017-11-07] MEDS: POTASSIUM CHLORIDE ER 20 MEQ TAB.ER PO SCH (15:12)
[2017-11-07] MEDS: HEPARIN SOD,PORK IN 0.45% NACL 25,000 UNIT in 0.45% NACL 1 500ML.BAG IV SCH (15:15)
[2017-11-07] MEDS: DILTIAZEM ORAL 60 MG TAB PO SCH ×2 (15:57→22:25)
[2017-11-08 05:38] LABS: HCT 38.3 % (39.0-53.0); HGB 12.7 gm/dL (13.0-17.5); MCH 31.6 pg (25.0-35.0); MCHC 33.2 g/dL (31.0-37.0); MCV 95.1 fL (80.0-100.0); Mean Platelet Volume 8.8; Platelet Count 197 k/uL (150-450); RBC 4.02 m/uL (4.30-5.90); RDW 13.6 % (11.5-15.5); WBC 12.9 k/uL (3.8-10.6)
[2017-11-08 06:03] LABS: ALT 19 U/L (21-72); AST 14 U/L (17-59); Albumin 3.2 g/dL (3.5-5.0); Alkaline Phosphatase 49 U/L (38-126); Anion Gap 9 mmol/L; Blood Urea Nitrogen 14 mg/dL (9-20); Calcium 8.8 mg/dL (8.4-10.2); Carbon Dioxide 24 mmol/L (22-30); Chloride 105 mmol/L (98-107); Glucose 97 mg/dL (74-99); Potassium 3.9 mmol/L (3.5-5.1); Sodium 138 mmol/L (137-145); Total Bilirubin 2.4 mg/dL (0.2-1.3); Total Protein 5.8 g/dL (6.3-8.2)
--- NOTE | 2017-11-08 07:38 | P.PN ---
Subjective Progress Note Date: 11/08/17 Principal diagnosis: Atrial fibrillation with rapid ventricular response. This is a 52-year-old white male with known history of atrial fibrillation who is still having difficulty with dyspnea on exertion. Heart rate is in the 130s this morning. I will slightly titrate Cardizem, if okay with cardiology. Otherwise he does complain of dyspnea. No chest pain otherwise stated. Objective - Vital Signs Vital signs: Vital Signs Temp 97.9 F 11/08/17 04:00 Pulse 100 11/08/17 04:00 Resp 18 11/08/17 04:00 BP 105/70 11/08/17 04:00 Pulse Ox 96 11/08/17 04:00 Intake & Output 11/07/17 11/08/17 11/08/17 18:59 06:59 18:59 Intake Total 1068.352 385.745 Output Total 1000 Balance 68.352 385.745 Weight 103.4 kg Intake: Intake, IV Titration 228.352 260.745 Amount Diltiazem 125 mg In 0 Sodium Chloride 0.9% 100 ml @ 10 MG/HR 10 mls/hr IV .[id number] [facility] Rx#: [id number] Heparin Sod,Pork in 0.45% 228.352 260.745 NaCl 25,000 unit In 0.45 % NaCl 1 500ml.bag @ 9.59 UNITS/KG/HR 20 mls/hr IV .Q24H [facility] Rx#:[id number] Oral 840 125 Output: Urine 1000 Other: Voiding Method Toilet # Voids 2 - Constitutional General appearance: Present: average body habitus - EENT Eyes: Absent: abnormal pupil - Respiratory Respiratory: bilateral: diminished - Cardiovascular Rhythm: irregularly irregular Heart sounds: normal: S1, S2 - Gastrointestinal General gastrointestinal: Present: soft. Absent: tenderness - Musculoskeletal Musculoskeletal: Present: generalized weakness - Labs CBC & Chem 7: 11/08/17 05:19 11/08/17 05:19 Labs: Abnormal Lab Results - Last 24 Hours (Table) 11/07/17 11/07/17 11/08/17 Range/Units 13:15 20:59 05:19 WBC 12.9 H (3.8-10.6) k/uL RBC 4.02 L (4.30-5.90) m/uL Hgb 12.7 L (13.0-17.5) gm/dL Hct 38.3 L (39.0-53.0) % APTT 40.2 H 34.3 H (22.0-30.0) sec Total Bilirubin (0.2-1.3) mg/dL AST (17-59) U/L ALT (21-72) U/L Total Protein (6.3-8.2) g/dL Albumin (3.5-5.0) g/dL 11/08/17 11/08/17 Range/Units 05:19 05:19 WBC (3.8-10.6) k/uL RBC (4.30-5.90) m/uL Hgb (13.0-17.5) gm/dL Hct (39.0-53.0) % APTT 41.5 H (22.0-30.0) sec Total Bilirubin 2.4 H (0.2-1.3) mg/dL AST 14 L (17-59) U/L ALT 19 L (21-72) U/L Total Protein 5.8 L (6.3-8.2) g/dL Albumin 3.2 L (3.5-5.0) g/dL Assessment and Plan (1) Hypertension Current Visit: Yes Status: Acute Code(s): I10 - ESSENTIAL (PRIMARY) HYPERTENSION SNOMED Code(s): 25437041 (2) Atrial fibrillation with RVR Current Visit: Yes Status: Acute Code(s): I48.91 - UNSPECIFIED ATRIAL FIBRILLATION SNOMED Code(s): 544146990197483 Plan: Continue current regimen of rate control. Question need for anticoagulation. Echocardiogram result noted. Otherwise check CMP in the a.m. Time with Patient: Less than 30
[2017-11-08] MEDS ORDERED: LISINOPRIL 20 MG TAB PO SCH (09:00)
[2017-11-08] MEDS: FUROSEMIDE 10 MG/ML 4 ML VIAL IV SCH ×3 (09:34→23:45)
[2017-11-08] MEDS: ASPIRIN 81 MG PO SCH (09:35)
[2017-11-08] MEDS: AZITHROMYCIN 250 MG TAB PO SCH (09:35)
[2017-11-08] MEDS: DILTIAZEM ORAL 30 MG TAB PO SCH ×3 (09:36→20:16)
[2017-11-08] MEDS: METOPROLOL TARTRATE 50 MG TAB PO SCH ×3 (09:37→20:15)
[2017-11-08] MEDS: POTASSIUM CHLORIDE ER 20 MEQ TAB.ER PO SCH (09:37)
[2017-11-08] MEDS: HEPARIN SOD,PORK IN 0.45% NACL 25,000 UNIT in 0.45% NACL 1 500ML.BAG IV SCH (09:38)
[2017-11-08] MEDS: cefTRIAXone IN SWFI 1,000 MG/10 ML SYRINGE IVP SCH (09:42)
[2017-11-08] MEDS: DIGOXIN 250 MCG/ML 2 ML AMP IVP SCH ×2 (12:06→17:05)
[2017-11-08] MEDS: APIXABAN 5 MG TAB PO SCH ×2 (12:06→20:15)
--- NOTE | 2017-11-08 14:07 | P.PN ---
Subjective Progress Note Date: 11/08/17 This a 52-year-old gentleman with history of hypertension, nicotine use, patient's smokes one to 2 packs of cigarettes per day, 6-12 beers per day, strong family history of premature coronary artery disease. 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 He did notice as of last weekend that he would become quite short of breath when he was climbing stairs, he then states on Sunday, that he began coughing, felt as though he may have pneumonia which she has had in the past. He took some Mucinex and states that he slept all day Sunday, on Sunday he again began coughing, he states initially he was coughing clear sputum then it changed to dark sputum. He also states that he continued to be significantly short of breath. He went to see his primary care physician, Dr. Valderrama, and EKG was performed in the office which showed atrial fibrillation with rapid ventricular response and hence the patient was admitted to the hospital for further evaluation. EKG on arrival here showed atrial fibrillation with a rapid ventricular response. White blood cell count 12.0 , hemoglobin 14, platelet count 186, d-dimer 0.8, potassium 3.9, BUN 12, creatinine 0.6. Magnesium 1.6. Troponins negative 3. BNP 2960. Chest x-ray revealed bilateral infiltrate and small effusion with cardiomegaly. Underlying venous congestion in the differential as well. Blood pressure 112/60, heart rate this morning in the 90s, 95% on 2 L of oxygen. Patient is currently on IV heparin as well as Cardizem drip at 10 mg per hour. IV antibiotics were initiated, along with Zithromax initiated. At the time of my examination this morning, patient continues to cough of dark sputum, mild shortness of breath, mild palpitations. 11/08/2017 Patient seen and examined this morning, continues to feel short of breath. Heart rate up in the 120s to 130s earlier. His dose of CHIKIS inhibitor was taking increased and dose of calcium channel laura increased earlier. At time of our rounds 100s to 1 teens.echocardiogram with Doppler study revealed an ejection fraction of 55-60%, severe mitral regurgitation was present.blood pressure 110/60.we will change the lisinopril to 10 mg administered at bedtime, increase beta laura to a 3 times a day dose. We will also give the patient 0.25 mg of Lanoxin IV 6 hours apart today then initiate 0.25 mg daily from tomorrow. We will discontinue the IV heparin and start the patient on Eliquis 5 mg by mouth twice a day. Objective - Vital Signs Vital signs: Vital Signs Temp 97.8 F 11/08/17 11:54 Pulse 86 11/08/17 11:54 Resp 18 11/08/17 11:54 BP 109/59 11/08/17 11:54 Pulse Ox 96 11/08/17 11:54 Intake & Output 11/07/17 11/08/17 11/08/17 18:59 06:59 18:59 Intake Total 1068.352 625.000 340 Output Total 1000 200 Balance 68.352 625.000 140 Weight 103.4 kg Intake: Intake, IV Titration 228.352 500.000 Amount Diltiazem 125 mg In 0 Sodium Chloride 0.9% 100 ml @ 10 MG/HR 10 mls/hr IV .[id number] [facility] Rx#: [id number] Heparin Sod,Pork in 0.45% 228.352 500.000 NaCl 25,000 unit In 0.45 % NaCl 1 500ml.bag @ 9.59 UNITS/KG/HR 20 mls/hr IV .Q24H [facility] Rx#:[id number] Oral 840 125 340 Output: Urine 1000 200 Other: Voiding Method Toilet # Voids 2 1 - Exam PHYSICAL EXAMINATION: HEENT: Head is atraumatic, normocephalic. Pupils equal, round. Neck is supple. There is no elevated jugular venous pressure. HEART EXAMINATION: Heart S1 and S2 irregularly irregular CHEST EXAMINATION: Lungs reveal decreased air exchange with fine crackles to the bases. ABDOMEN: Soft, nontender. Bowel sounds are heard. No organomegaly noted. EXTREMITIES: 2+ peripheral pulses with no evidence of peripheral edema and no calf tenderness noted. NEUROLOGIC patient is awake, alert and oriented -3. . - Labs CBC & Chem 7: 11/08/17 05:19 11/08/17 05:19 Labs: Abnormal Lab Results - Last 24 Hours (Table) 11/07/17 11/08/17 11/08/17 Range/Units 20:59 05:19 05:19 WBC 12.9 H (3.8-10.6) k/uL RBC 4.02 L (4.30-5.90) m/uL Hgb 12.7 L (13.0-17.5) gm/dL Hct 38.3 L (39.0-53.0) % APTT 34.3 H (22.0-30.0) sec Total Bilirubin 2.4 H (0.2-1.3) mg/dL AST 14 L (17-59) U/L ALT 19 L (21-72) U/L Total Protein 5.8 L (6.3-8.2) g/dL Albumin 3.2 L (3.5-5.0) g/dL 11/08/17 Range/Units 05:19 WBC (3.8-10.6) k/uL RBC (4.30-5.90) m/uL Hgb (13.0-17.5) gm/dL Hct (39.0-53.0) % APTT 41.5 H (22.0-30.0) sec Total Bilirubin (0.2-1.3) mg/dL AST (17-59) U/L ALT (21-72) U/L Total Protein (6.3-8.2) g/dL Albumin (3.5-5.0) g/dL Assessment and Plan Plan: Assessment and plan #1 atrial fibrillation with rapid ventricular response, appears to be of new onset for the patient. Currently on IV heparin and Cardizem drips #2 pneumonia #3 hypertension #4 nicotine dependence, patient's smokes one to 2 packs of cigarettes per day #5 EtOH use, patient drinks 6-12 beers per day #6 family history of premature coronary artery disease in 2 of his brothers #7 diverticulosis Plan echocardiogram with Doppler study revealed a normal left ventricular systolic function with severe mitral regurgitation. We will discontinue the IV heparin today and start the patient on Eliquis 5 mg one tablet by mouth twice a day. Change lisinopril to 10 mg and given at at bedtime, increase beta laura to 3 times a day, give the patient Lanoxin 125 mg IV 6 hours apart then start oral Lanoxin from tomorrow. DNP note has been reviewed, I agree with a documented findings and plan of care. Patient was seen and examined.
[2017-11-08] MEDS: DILTIAZEM 125 MG in SODIUM CHLORIDE 0.9% 100 ML IV SCH ×2 (15:37→20:12)
[2017-11-08] MEDS: LISINOPRIL 10 MG TAB PO SCH (20:16)
[2017-11-09 06:21] LABS: Mean Platelet Volume 8.6; Platelet Count 198 k/uL (150-450)
[2017-11-09 06:38] LABS: ALT 27 U/L (21-72); AST 18 U/L (17-59); Albumin 3.3 g/dL (3.5-5.0); Alkaline Phosphatase 49 U/L (38-126); Anion Gap 11 mmol/L; Blood Urea Nitrogen 14 mg/dL (9-20); Carbon Dioxide 24 mmol/L (22-30); Chloride 104 mmol/L (98-107); Glucose 98 mg/dL (74-99); Potassium 3.7 mmol/L (3.5-5.1); Sodium 139 mmol/L (137-145); Total Bilirubin 2.3 mg/dL (0.2-1.3)
--- NOTE | 2017-11-09 07:51 | P.PN ---
Subjective Principal diagnosis: Atrial fibrillation with rapid ventricular response. Discontinue proximal 52-year-old male essentially admitted for acute onset atrial fibrillation. Heart rate is finally starting to diminish. However he still spiking in the 110s. This is the first time he's been in the 90s. Digoxin was bolused yesterday. He has not beta laura with calcium channel laura and CHIKIS inhibitor. Eliquis has been written. Appreciate cardiology input. The patient states no overt dizziness or chest pain today. Objective - Vital Signs Vital signs: Vital Signs Temp 98.0 F 11/09/17 04:00 Pulse 99 11/09/17 04:00 Resp 18 11/09/17 04:00 BP 102/63 11/09/17 04:00 Pulse Ox 95 11/09/17 04:00 Intake & Output 11/08/17 11/09/17 11/09/17 18:59 06:59 18:59 Intake Total 540 125 Output Total 800 Balance -260 125 Weight 102.2 kg Intake: Oral 540 125 Output: Urine 800 Other: Voiding Method Toilet # Voids 1 3 - Constitutional General appearance: Present: average body habitus - EENT Eyes: Absent: abnormal pupil - Respiratory Respiratory: bilateral: CTA - Cardiovascular Rhythm: irregularly irregular Heart sounds: normal: S1, S2 Abnormal Heart Sounds: Absent: S3 Gallop - Gastrointestinal General gastrointestinal: Present: soft. Absent: tenderness - Neurologic Neurologic: Present: CNII-XII intact - Musculoskeletal Musculoskeletal: Absent: gait normal - Psychiatric Psychiatric: Present: A&O x's 3 - Labs CBC & Chem 7: 11/09/17 06:03 11/09/17 06:03 Labs: Abnormal Lab Results - Last 24 Hours (Table) 11/09/17 Range/Units 06:03 Total Bilirubin 2.3 H (0.2-1.3) mg/dL Total Protein 6.0 L (6.3-8.2) g/dL Albumin 3.3 L (3.5-5.0) g/dL Assessment and Plan (1) Hypertension Current Visit: Yes Status: Acute Code(s): I10 - ESSENTIAL (PRIMARY) HYPERTENSION SNOMED Code(s): 16699938 (2) Atrial fibrillation with RVR Current Visit: Yes Status: Acute Code(s): I48.91 - UNSPECIFIED ATRIAL FIBRILLATION SNOMED Code(s): 434828575251613 Plan: Continue current regimen or treatment. We'll continue follow with cardiology. Dr. Shaw's group will covering for the weekend. Check CMP in a.m. Anticipate discharge in next 24-48 hours if he continues this trajectory of recovery. Otherwise, the patient has mentioned need for valve involvement with transesophageal echocardiogram. Otherwise, amiodarone was potentially discussed with the patient We'll continue to follow. Time with Patient: Less than 30
[2017-11-09] MEDS: FUROSEMIDE 10 MG/ML 4 ML VIAL IV SCH (08:16)
[2017-11-09] MEDS: AZITHROMYCIN 250 MG TAB PO SCH (08:17)
[2017-11-09] MEDS: APIXABAN 5 MG TAB PO SCH ×2 (08:17→21:38)
[2017-11-09] MEDS: ASPIRIN 81 MG PO SCH (08:17)
[2017-11-09] MEDS: METOPROLOL TARTRATE 50 MG TAB PO SCH ×3 (08:18→21:39)
[2017-11-09] MEDS: DILTIAZEM ORAL 30 MG TAB PO SCH ×3 (08:18→21:38)
[2017-11-09] MEDS: POTASSIUM CHLORIDE ER 20 MEQ TAB.ER PO SCH ×2 (08:18→21:41)
[2017-11-09] MEDS: DIGOXIN 250 MCG TAB PO SCH (08:18)
[2017-11-09] MEDS: cefTRIAXone IN SWFI 1,000 MG/10 ML SYRINGE IVP SCH (08:20)
[2017-11-09] MEDS: DILTIAZEM 125 MG in SODIUM CHLORIDE 0.9% 100 ML IV SCH (13:53)
--- NOTE | 2017-11-09 14:34 | CONS ---
CONSULTATION This is a gentleman who presented with atrial fib, rapid rate, also has significant mitral regurgitation and since yesterday he feels better. His breathing is easier. Denies any chest discomfort. His shortness of breath has improved. I am recommending that we switch him from IV to oral Lasix. We will offer some potassium supplements. Check another BMP in the morning. I am recommending that after we anticoagulate him for 3 weeks, I will perform electrical cardioversion and after that, consider transesophageal echo to get a better look at the mitral valve and coronary angiography. I discussed this in great detail with the patient. For now, we will continue current medications and switch him from IV to oral Lasix and see how he does. Patient does not recall any specific rheumatic heart disease type history. He really has no other documented history of any heart disease prior to his presentation here to the hospital. Blood pressure today is about 110/70, pulse rate is in the mid 90s, atrial fibrillation. Physical exam revealed JVD of 1 cm. S1-S2 heard normally and holosystolic murmur at the apex is audible but less prominent. Lungs are clearer than yesterday. Abdomen and lower exam unchanged. RECOMMENDATIONS: We will switch him from IV to oral Lasix, increase activity. I will continue rate control for now and anticoagulation will be with Eliquis 5 mg b.i.d. and he can be discharged hopefully in the next 48 hours and I will see him in the office and perform electrical cardioversion as an outpatient. MMODL / IJN: [id number] /
[2017-11-09] MEDS: FUROSEMIDE 40 MG TAB PO SCH (16:15)
[2017-11-09] MEDS: LISINOPRIL 10 MG TAB PO SCH (21:38)
[2017-11-09] MEDS: HYDROcodone/APAP 5-325MG 1 EACH TAB PO PRN (21:52)
[2017-11-10 06:34] LABS: ALT 36 U/L (21-72); AST 27 U/L (17-59); Albumin 3.3 g/dL (3.5-5.0); Alkaline Phosphatase 51 U/L (38-126); Anion Gap 9 mmol/L; Blood Urea Nitrogen 13 mg/dL (9-20); Calcium 9.1 mg/dL (8.4-10.2); Carbon Dioxide 27 mmol/L (22-30); Chloride 103 mmol/L (98-107); Glucose 142 mg/dL (74-99); Potassium 3.5 mmol/L (3.5-5.1); Sodium 139 mmol/L (137-145); Total Bilirubin 1.4 mg/dL (0.2-1.3); Total Protein 5.9 g/dL (6.3-8.2)
[2017-11-10 08:38] VITALS: TEMP 97.2
[2017-11-10] MEDS: FUROSEMIDE 40 MG TAB PO SCH (09:04)
[2017-11-10] MEDS: METOPROLOL TARTRATE 50 MG TAB PO SCH ×2 (09:04→15:13)
[2017-11-10] MEDS: AZITHROMYCIN 250 MG TAB PO SCH (09:04)
[2017-11-10] MEDS: ASPIRIN 81 MG PO SCH (09:04)
[2017-11-10] MEDS: APIXABAN 5 MG TAB PO SCH (09:04)
[2017-11-10] MEDS: DILTIAZEM ORAL 30 MG TAB PO SCH ×2 (09:04→15:13)
[2017-11-10] MEDS: cefTRIAXone IN SWFI 1,000 MG/10 ML SYRINGE IVP SCH (09:04)
[2017-11-10] MEDS: DIGOXIN 250 MCG TAB PO SCH (09:04)
[2017-11-10] MEDS: POTASSIUM CHLORIDE ER 20 MEQ TAB.ER PO SCH (09:04)
[2017-11-10 12:27] VITALS: BP 106/58; PULSE 69; RESP 18
--- NOTE | 2017-11-10 12:30 | P.PN ---
Subjective Progress Note Date: 11/10/17 This a 52-year-old gentleman with history of hypertension, nicotine use, patient's smokes one to 2 packs of cigarettes per day, 6-12 beers per day, strong family history of premature coronary artery disease. 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 He did notice as of last weekend that he would become quite short of breath when he was climbing stairs, he then states on Sunday, that he began coughing, felt as though he may have pneumonia which she has had in the past. He took some Mucinex and states that he slept all day Sunday, on Sunday he again began coughing, he states initially he was coughing clear sputum then it changed to dark sputum. He also states that he continued to be significantly short of breath. He went to see his primary care physician, Dr. Valderrama, and EKG was performed in the office which showed atrial fibrillation with rapid ventricular response and hence the patient was admitted to the hospital for further evaluation. EKG on arrival here showed atrial fibrillation with a rapid ventricular response. White blood cell count 12.0 , hemoglobin 14, platelet count 186, d-dimer 0.8, potassium 3.9, BUN 12, creatinine 0.6. Magnesium 1.6. Troponins negative 3. BNP 2960. Chest x-ray revealed bilateral infiltrate and small effusion with cardiomegaly. Underlying venous congestion in the differential as well. Blood pressure 112/60, heart rate this morning in the 90s, 95% on 2 L of oxygen. Patient is currently on IV heparin as well as Cardizem drip at 10 mg per hour. IV antibiotics were initiated, along with Zithromax initiated. At the time of my examination this morning, patient continues to cough of dark sputum, mild shortness of breath, mild palpitations. 11/08/2017 Patient seen and examined this morning, continues to feel short of breath. Heart rate up in the 120s to 130s earlier. His dose of CHIKIS inhibitor was taking increased and dose of calcium channel laura increased earlier. At time of our rounds 100s to 1 teens.echocardiogram with Doppler study revealed an ejection fraction of 55-60%, severe mitral regurgitation was present.blood pressure 110/60.we will change the lisinopril to 10 mg administered at bedtime, increase beta laura to a 3 times a day dose. We will also give the patient 0.25 mg of Lanoxin IV 6 hours apart today then initiate 0.25 mg daily from tomorrow. We will discontinue the IV heparin and start the patient on Eliquis 5 mg by mouth twice a day. 11/10/2017 Patient seen and examined this morning, he's been up ambulating in the hallway most of the morning. Breathing is stable. Blood pressure 106/50 with a heart rate in the 60s. Potassium 3.5 which we will replace, BUN 13, creatinine 0.6. Objective - Vital Signs Vital signs: Vital Signs Temp 97.2 F L 11/10/17 08:00 Pulse 69 11/10/17 12:00 Resp 18 11/10/17 12:00 BP 106/58 11/10/17 12:00 Pulse Ox 98 11/10/17 12:00 Intake & Output 11/09/17 11/10/17 11/10/17 18:59 06:59 18:59 Intake Total 1080 Balance 1080 Weight 101.5 kg Intake: Oral 1080 Other: Voiding Method Toilet Toilet Toilet # Voids 2 5 - Exam PHYSICAL EXAMINATION: HEENT: Head is atraumatic, normocephalic. Pupils equal, round. Neck is supple. There is no elevated jugular venous pressure. HEART EXAMINATION: Heart S1 and S2 irregularly irregular CHEST EXAMINATION: Lungs clear to auscultation ABDOMEN: Soft, nontender. Bowel sounds are heard. No organomegaly noted. EXTREMITIES: 2+ peripheral pulses with no evidence of peripheral edema and no calf tenderness noted. NEUROLOGIC patient is awake, alert and oriented -3. . - Labs CBC & Chem 7: 11/09/17 06:03 11/10/17 06:08 Labs: Abnormal Lab Results - Last 24 Hours (Table) 11/10/17 Range/Units 06:08 Creatinine 0.60 L (0.66-1.25) mg/dL Glucose 142 H (74-99) mg/dL Total Bilirubin 1.4 H (0.2-1.3) mg/dL Total Protein 5.9 L (6.3-8.2) g/dL Albumin 3.3 L (3.5-5.0) g/dL Assessment and Plan Plan: Assessment and plan #1 atrial fibrillation with rapid ventricular response, appears to be of new onset for the patient. Currently on IV heparin and Cardizem drips #2 pneumonia #3 hypertension #4 nicotine dependence, patient's smokes one to 2 packs of cigarettes per day #5 EtOH use, patient drinks 6-12 beers per day #6 family history of premature coronary artery disease in 2 of his brothers #7 diverticulosis Plan Echocardiogram with Doppler study revealed a normal left ventricular systolic function with severe mitral regurgitation. Patient may be able to be discharged home today. We will continue Eliquis 5 mg twice a day, to follow-up with Dr. Anu Valles, cardioversion will be performed as an outpatient. We will also continue baby aspirin daily, Lanoxin 25 g daily, Cardizem 90 by mouth 3 times a day, Lasix 40 by mouth twice a day, lisinopril 10 mg daily, metoprolol 50 3 times a day and potassium 20 twice a day. DNP note has been reviewed, I agree with a documented findings and plan of care. Patient was seen and examined.
--- NOTE | 2017-11-10 23:45 | DS ---
DISCHARGE SUMMARY DATE OF SERVICE: 11/10/2017 I am covering for Dr. Valderrama. FINAL DIAGNOSES: 1. Hypertension. 2. Atrial ablation with rapid ventricular rate. 3. Gastroesophageal reflux disease. 4. History of gastrointestinal bleed. 5. History of appendectomy. 6. History of EtOH. DISCHARGE DISPOSITION: Patient being discharged in stable condition with guarded prognosis. Cardiology cleared the patient. HISTORY OF PRESENT ILLNESS: This 52-year-old gentleman with past medical history of multiple medical problems was admitted with atrial fibrillation with fast ventricular rate. The patient is being followed by Dr. Valderrama in the outpatient setting. Cardiology saw the patient. Care was coordinated. The patient improved significantly. On exam, vitals are stable. Abdomen soft. Nervous system: No focal deficits. Otherwise the patient is being discharged in stable condition with guarded prognosis with the following advised and medications: DISCHARGE ADVICE AND MEDICATIONS: 1. Diet is cardiac diet. 2. Activity limited until followup. 3. Follow up with Dr. Valderrama in 2 to 3 days. 4. Follow up with cardiology as advised. MEDICATIONS: 1. Eliquis 5 mg p.o. b.i.d. 2. Lantus mcg p.o. daily. 3. Cardizem 90 mg p.o. t.i.d. 4. Brenda C 500 mg p.o. daily. 5. Fish oil 1 p.o. daily. 6. Zestril 10 mg q.h.s. 7. Lopressor 50 mg p.o. t.i.d. 8. Multivitamins 1 p.o. daily. 9. Prilosec 20 mg p.o. daily. Once again, the patient is being discharged in stable condition with guarded prognosis. MMODL / IJN: [id number] / [facility]
== END 2017-11-10 15:38 | disposition home or self-care (01) | DRG 309 ==
LOC: EC 10:56 → 6SEL 12:38
PROVIDERS: ADMIT Family Medicine; ATTEND Family Medicine
DX: I48.91 Unspecified atrial fibrillation (principal); J90 Pleural effusion, not elsewhere classified; F17.210 Nicotine dependence, cigarettes, uncomplicated; I10 Essential (primary) hypertension; I34.0 Nonrheumatic mitral (valve) insufficiency; K21.9 Gastro-esophageal reflux disease without esophagitis; Z79.899 Other long term (current) drug therapy; Z82.49 Family history of ischemic heart disease and other diseases of the circulatory system; Z90.49 Acquired absence of other specified parts of digestive tract; Z88.0 Allergy status to penicillin
CPT/HCPCS: 36415; 71046; 80053; 80061; 82550; 82553; 83735; 83880; 84439; 84443; 84484; 85025; 85027; 85049; 85379; 85610; 85730; 93005; 93306; 94760; 96365; 96366; 96368; 96376; 99285

== ENCOUNTER → 2017-12-03 | Day surgery (SDC) | payer OTHER ==
[2017-11-28 14:46] VITALS: BMI 30.5
[~2017-12-03] MED LIST: ACETAMINOPHEN TAB 325 MG TAB ONE; ACETAMINOPHEN TAB 325 MG TAB PO PRN; DILTIAZEM ORAL 30 MG TAB PO SCH; LACTATED RINGERS 1,000 ML IV SCH; METOPROLOL TARTRATE 50 MG TAB ONE; MULTIVITAMINS, THERA 1 EACH TAB PO SCH; PROPOFOL 10 MG/ML 20 ML VIAL IV ONE; SODIUM CHLORIDE 0.9% 1,000 ML IV SCH
[2017-12-03 07:02] VITALS: RESP 18
--- NOTE | 2017-12-03 08:02 | CE ---
CARDIAC ELECTROPHYSIOLOGY REPORT DATE OF SERVICE: 12/03/2017 PROCEDURE: Electrical cardioversion. INDICATION: Persistent atrial fibrillation, unresponsive to pharmacological efforts. CLINICAL INFORMATION: Mr. Tristen Hare is a 52-year-old gentleman seen by me in the hospital recently when he presented with CHF, mitral regurgitation, atrial fibrillation. After adequately anticoagulating him, he was advised electrical cardioversion. Risks, benefits, options, rationale were explained. PROCEDURE NOTE: Under the influence of ultra short-acting intravenous anesthetic agent with the attendance of the anesthesiologist, initially a single 200 joule shock was delivered. Patient converted to sinus rhythm for a few beats and went back into atrial fibrillation. A second shock of 250 joules was delivered with anterior and posterior patches. He converted to sinus rhythm, remained neurologically intact and hemodynamically stable. This was a successful cardioversion on the second shock. Results were discussed with the patient and family. He will be discharged later today if he stable and I will see him in the office on 12/13/2017. Same medications will be continued. MMODL / IJN: [id number] /
[2017-12-03 09:21] VITALS: TEMP 98.2
[2017-12-03 11:33] VITALS: PULSE 71
[2017-12-03 11:41] VITALS: BP 115/79
== END ==
LOC: CATHCVL 06:21
PROVIDERS: ATTEND Internal Medicine Interventional Cardiology
DX: I48.1 Persistent atrial fibrillation (principal); I34.0 Nonrheumatic mitral (valve) insufficiency; I10 Essential (primary) hypertension; K21.9 Gastro-esophageal reflux disease without esophagitis; Z82.49 Family history of ischemic heart disease and other diseases of the circulatory system; Z79.01 Long term (current) use of anticoagulants; Z79.899 Other long term (current) drug therapy; Z88.0 Allergy status to penicillin; Z87.891 Personal history of nicotine dependence
CPT/HCPCS: 92960; J2704; 93005

== ENCOUNTER → 2017-12-12 | Outpatient (CLI) | payer OTHER ==
--- NOTE | 2017-12-13 16:28 | CT ---
EXAMINATION TYPE: CT angio thoracic/abd aorta DATE OF EXAM: 12/12/2017 COMPARISON: NONE HISTORY: Patient complains of new onset back pain and atrial fibrillation. CT DLP: 835.4 mGycm. Automated Exposure Control for Dose Reduction was Utilized. CONTRAST: CT scan of the thorax and abdomen is performed with IV Contrast, patient injected with 100 mL of Isov ue 370. 3-D reformats of the vasculature were performed at a separate workstation for review. FINDINGS: LUNGS: There is very mild paraseptal emphysematous changes throughout the lungs. Subpleural reticulat ion within the left lung at the lung bases likely represents atelectasis rather than early pulmonary fibrosis. There is a trace left pleural effusion. No pulmonary mass is identified. No focal consolida tion is seen. No pneumothorax. The lungs are grossly clear, there is no concerning parenchymal mass o r nodule identified. There is no pleural effusion or pneumothorax seen. The tracheobronchial tree is patent. MEDIASTINUM: The aortic root is mildly dilated measuring 4.1 cm on series 10 image 43. Ascending thor acic aorta is nondilated measuring 3.5 cm. Main pulmonary artery is also nonenlarged measuring 3.1 cm . There is no evidence of dissection or occlusion. There is less than 50% stenosis from calcific and noncalcific atheromatous plaquing of the left proximal subclavian artery. Mild atherosclerosis is see n in the remainder of the thoracic artery. There are no greater than 1 cm hilar or mediastinal lymph nodes. The heart is mildly enlarged with no pericardial effusion. Moderate three-vessel coronary calc ifications are seen. OTHER: Incidental note is made of bilateral retroareolar minimal gynecomastia. LIVER/GB: The liver is diffusely hypoattenuated most commonly related to hepatic steatosis, limiting evaluation for hepatic masses, however on hepatic angiographic phase there are at least 10 areas of a rterial enhancement with the largest seen in segment IVb near the gallbladder fossa measuring approxi mately 2.1 cm. These are nonspecific described. Gallbladder is unremarkable. PANCREAS: No significant abnormality is seen. No ductal dilatation. SPLEEN: No significant abnormality is seen. No splenomegaly. ADRENALS: No thickening or nodularity. KIDNEYS: Kidneys enhance symmetrically. No hydronephrosis. BOWEL: Numerous colonic diverticula are seen without pericolonic fat stranding. Moderate amount retai rocio colonic stool is noted. No small bowel dilatation.. LYMPH NODES: No greater than 1cm abdominal or pelvic lymph nodes are appreciated. OSSEOUS STRUCTURES: No significant abnormality is seen. Mild multilevel degenerative changes of the v isualized spine. OTHER: There is no evidence of abdominal aortic dissection. Moderate calcific and noncalcific atherom atous plaquing is seen of the abdominal aorta and its branches. Infrarenal abdominal aortic fusiform ectasia is seen without aneurysmal dilatation. This measures approximately 2.9 x 2.7 cm on series 4 i mage 78. There is tortuosity just proximal to the aortoiliac bifurcation. No evidence of common iliac aneurysm. IMPRESSION: 1. Aortic root is minimally aneurysmal measuring 4.1 cm. Ascending thoracic aorta and descending thor acic aorta are nonaneurysmal with mild focal ectasia of the infrarenal descending thoracic aorta. No evidence of aortic dissection of the thoracic or abdominal aorta. Moderate calcific and noncalcific a theromatous plaquing. 2. Possible arterial enhancing hepatic lesions. Consideration are for hemangiomas, arterial portal s hunts, hepatocellular carcinoma or hypervascular neoplasm such as metastasis. Further evaluation with enhanced MRI (hepatic mass protocol) is recommended. 3. Mild paraseptal emphysematous changes and multifocal atelectasis.
== END | disposition home or self-care (01) ==
LOC: RADCTMAIN 17:41
PROVIDERS: ATTEND Internal Medicine Interventional Cardiology
DX: I77.810 Thoracic aortic ectasia (principal); I70.90 Unspecified atherosclerosis; J43.9 Emphysema, unspecified; J98.11 Atelectasis; Z88.0 Allergy status to penicillin
CPT/HCPCS: 75635; 71275; Q9967

== ENCOUNTER → 2017-12-21 | Outpatient (CLI) | payer OTHER ==
[2017-12-21 11:37] LABS: HCT 40.3 % (39.0-53.0); HGB 14.4 gm/dL (13.0-17.5); MCH 31.2 pg (25.0-35.0); MCHC 35.9 g/dL (31.0-37.0); Mean Platelet Volume 7.8; Platelet Count 249 k/uL (150-450); RBC 4.63 m/uL (4.30-5.90); RDW 13.4 % (11.5-15.5); WBC 8.8 k/uL (3.8-10.6)
[2017-12-21 11:38] LABS: Anion Gap 13 mmol/L; Blood Urea Nitrogen 14 mg/dL (9-20); Carbon Dioxide 26 mmol/L (22-30); Chloride 103 mmol/L (98-107); Potassium 4.1 mmol/L (3.5-5.1); Sodium 142 mmol/L (137-145)
== END | disposition home or self-care (01) ==
LOC: LABPAT 10:56
PROVIDERS: ATTEND Internal Medicine Interventional Cardiology
DX: Z01.812 Encounter for preprocedural laboratory examination (principal); I34.0 Nonrheumatic mitral (valve) insufficiency
CPT/HCPCS: 36415; 80051; 82565; 84520; 85027

== ENCOUNTER 2017-12-24 06:12 | Day surgery (SDC) | payer OTHER ==
[2017-12-17 11:58] VITALS: BMI 31.1
[~2017-12-24 06:12] MED LIST changes: -ACETAMINOPHEN TAB 325 MG TAB ONE; -ACETAMINOPHEN TAB 325 MG TAB PO PRN; +ALPRAZolam 0.25 MG TAB PO PRN; +ASPIRIN 325 MG TAB PO ONE; -DILTIAZEM ORAL 30 MG TAB PO SCH; -LACTATED RINGERS 1,000 ML IV SCH; -METOPROLOL TARTRATE 50 MG TAB ONE; -MULTIVITAMINS, THERA 1 EACH TAB PO SCH; -PROPOFOL 10 MG/ML 20 ML VIAL IV ONE; -SODIUM CHLORIDE 0.9% 1,000 ML IV SCH; +SODIUM CHLORIDE 0.9% 1,000 ML in EMPTY BAG 1 BAG IV ONE
[2017-12-24 07:06] VITALS: TEMP 97.8
[2017-12-24] MEDS ORDERED: LIDOCAINE 2% INJ 20 MG/ML (20 ML MDV) ONE (07:08)
[2017-12-24] MEDS ORDERED: diphenhydrAMINE 50 MG/ML 1 ML VIAL ONE (07:15)
[2017-12-24] MEDS ORDERED: MIDAZOLAM 2 MG/2 ML VIAL ONE (07:15)
[2017-12-24] MEDS ORDERED: MIDAZOLAM 2 MG/2 ML VIAL IVP ONE (07:20)
[2017-12-24] MEDS ORDERED: diphenhydrAMINE 50 MG/ML 1 ML VIAL IVP ONE (07:20)
[2017-12-24] MEDS ORDERED: LIDOCAINE 2% INJ 20 MG/ML SQ ONE ×2 (07:22→07:25)
[2017-12-24 07:50] LABS: O2 Sat Blood Gas 71.1 %
[2017-12-24 07:52] LABS: O2 Sat Blood Gas 94.1 %
[2017-12-24 07:54] LABS: O2 Sat Blood Gas 70.4 %
[2017-12-24] MEDS ORDERED: IOPAMIDOL-370 50ML BTL INJ ONE (07:55)
[2017-12-24] MEDS ORDERED: IOPAMIDOL-370 100ML BTL INJ ONE (07:56)
[2017-12-24] MEDS ORDERED: RX INFO: IV CONTRAST WAS GIVEN 1 EACH MISC MISCELLANE PRN (09:06)
[2017-12-24] MEDS ORDERED: SODIUM CHLORIDE 0.9% 1,000 ML IV SCH (09:15)
--- NOTE | 2017-12-24 09:46 | CC ---
CARDIAC CATHETERIZATION REPORT DATE OF SERVICE: 12/24/2017. PROCEDURE: 1. Right and left heart catheterization. 2. Coronary angiography. 3. Left ventriculography. PERFORMED BY: Dr. Perry Valles. Moderate conscious sedation time was 37 minutes with a combination of Versed, Benadryl. The patient's oxygen saturation, hemodynamics, and vital signs are monitored closely. CLINICAL INFORMATION: Mr. Tristen Hare is a 52-year-old gentleman with a history of smoking and alcoholism, who was seen by me about nearly 4 to 6 weeks ago when he presented with a severe mitral regurgitation and congestive heart failure with atrial fibrillation. After stabilizing him, I performed electrical cardioversion and following the cardioversion, patient converted to sinus rhythm, but mitral regurgitation was moderate to severe and he still had symptoms of exertional shortness of breath, was advised a right and left heart catheterization to assess for coronary disease and also a transesophageal echo. Risks, benefits, and options and rationale were explained to the patient and and he was brought in for the procedure electively. PROCEDURE NOTE: Under local anesthesia and strict aseptic precautions, a 6-Tristanian introducer was placed in the right femoral artery and an 8-Tristanian introducer in the right femoral vein. Using a balloon tipped floatation catheter, I performed right heart catheterization. Checked the hemodynamics and also performed thermodilution cardiac output. I then performed coronary angiography using standard Angela catheters and a pigtail catheter was used to perform an LV gram. The sheaths were taken out and hemostasis secured with manual compression and FemoStop. Patient tolerated the procedure well without complications. CARDIAC CATHETERIZATION FINDINGS: The right atrial pressure was 4 mmHg. The right ventricular pressure was 32/4. Pulmonary artery pressure was 32/10 with a mean of 18. Pulmonary capillary wedge pressure was 9 to 10 mmHg. The left ventricular end-diastolic pressure was about 12 mmHg. There was no gradient across the aortic valve. The pulmonary arterial saturation was 71%. Femoral artery saturation was 95%. The thermodilution cardiac output was 6.6 L and Nora cardiac output was nearly 6 L. CORONARY ANGIOGRAPHY FINDINGS: RIGHT CORONARY ARTERY: Dominant calcified vessel with a proximal lesion of 80% mid lesion of 70% in calcified segment. Distally the vessel bifurcates into PDA and PLV, both of which supply a sizable amount of myocardium. There is no significant disease in the branches of the RCA, but the proximal and mid areas have this tight stenosis. LEFT MAIN CORONARY ARTERY: Short patent vessel that immediately bifurcates into a circumflex and LAD. LEFT ANTERIOR DESCENDING CORONARY ARTERY: This is a good distribution and good caliber vessel that gives off a very high first diagonal branch. This very high first diagonal branch almost looks like a ramus. This has minor irregularities, no significant disease. The LAD in the mid portion has about a 40% narrowing after the diagonal branch. It runs all the way to the apex to supply a sizable amount of myocardium. The mid LAD therefore has about a 40% lesion, but the caliber improves. It runs all the way to the apex, curves over the apex to supply the inferoapical portion of the eft ventricle. LEFT POSTERIOR CIRCUMFLEX CORONARY ARTERY: Technically nondominant vessel. Good caliber, good distribution. Obtuse marginal that runs laterally, has minor irregularities no significant disease. There is some calcification of the left system noted, especially the LAD has moderate calcification but no critical stenosis. LEFT VENTRICULOGRAM: This was performed in 30-degree DICK projection revealed left ventricle is of a normal size with good systolic function and moderate mitral regurgitation. Ejection fraction is about 60% by visual inspection. There is moderate mitral regurgitation, mostly posterior. There was some ectopy. FINAL IMPRESSION: This patient has normal hemodynamics and normal cardiac output. Left ventricular systolic function is normal with ejection fraction of 60% with moderate mitral regurgitation directed posteriorly. The patient has some calcification of the pulmonary valve as well. There is single-vessel disease of significance with the proximal and mid RCA lesion of 80% and 70% respectively in a calcified segment. The left system is calcified, but no significant disease. Left ventricular function is well preserved. The thermodilution and Nora cardiac outputs are normal. RECOMMENDATION: I will await the findings on the transesophageal echo regarding his mitral valve and then make specific recommendations. If the patient is going for mitral valve repair, he should have grafting of the right coronary artery also. However, I will await the results of transesophageal echocardiogram before final determination. Discussed my thoughts in detail with the patient and . MARTY / BESSN: [id number] /
[2017-12-24] MEDS ORDERED: MORPHINE SULFATE 4MG/4ML SYRG IVP PRN ×2 (09:50→13:17)
--- NOTE | 2017-12-24 09:52 | LTR ---
December 24, 2017 Re: Tristen Hare Dear Dr. Valderrama: Thank you for the opportunity to participate in the care of Mr. Hare. Please find enclosed my detailed cardiac cath report for your records. His recent CT angiogram revealed some abnormality of his liver raising the possibility of hemangioma or a hepatocellular cancer. The patient does have history of alcoholism and has stopped drinking and smoking since he had his recent hospitalization. It is possible that these findings may represent cirrhosis type picture with some shunting. However, this needs to be further evaluated with a hepatic mass MRI protocol. From a coronary disease standpoint and mitral valve disease standpoint, I will await the results of DYLAN before making specific recommendation. Thank you for your referral and please call for questions. With kindest regards. Sincerely yours, MD MARTY Cee / ALISHA: [id number] /
[2017-12-24] MEDS ORDERED: IV FLUID CONTINUATION 400 ML IV ONE (12:01)
[2017-12-24] MEDS: BENZOCAINE SPRAY 1 CAN MUCOUS MEM ONE ×2 (12:20→12:24)
[2017-12-24] MEDS ORDERED: fentaNYL (PF) 50 MCG/ML 2 ML AMP IV ONE (12:24)
[2017-12-24] MEDS ORDERED: MIDAZOLAM 2 MG/2 ML VIAL IV ONE ×2 (12:24→12:29)
[2017-12-24 12:44] VITALS: PULSE 79
--- NOTE | 2017-12-24 13:19 | ECHOT ---
TRANSESOPHAGEAL ECHOCARDIOGRAM A transesophageal echocardiogram was performed to assess the mitral regurgitation. Patient was given intravenous sedation with Versed and fentanyl and transesophageal echocardiogram was performed without any complications. Left ventricular chamber is normal in size with normal left ventricular systolic function and systolic diameter was 3.2 cm. There is mild thickening of the mitral leaflet noted. The posterior leaflet movement is restricted and there is evidence of central mitral regurgitation which appears to be moderate. There is no reversal of flow in the pulmonary vein and the systolic flow is predominant in the pulmonary vein. Left atrium is moderately enlarged. The right ventricle and right atrial chamber are normal in size. There is a mild degree of tricuspid regurgitation. Aortic valve is mildly sclerotic. No significant regurgitation is noted. Interatrial septum is intact. There is no evidence of any PFO. Small atherosclerotic plaque is noted in the descending thoracic aorta. FINAL IMPRESSION: 1. This study reveals mild thickening of the mitral leaflets with restricted motion of the posterior mitral leaflet. There is a moderate degree of mitral regurgitation. There is no evidence of reversal of flow in the pulmonary vein and there is predominant of systolic flow in the pulmonary vein. 2. Left ventricular systolic function is normal. Left ventricular end-diastolic and end-systolic diameters are normal. 3. There is a mild tricuspid regurgitation noted. 4. Interatrial septum is intact. There is no evidence of any patent foramen ovale by saline contrast study. 5. There is mild diffuse atherosclerotic plaque noted in descending thoracic aorta. MMODL / IJN: [id number] /
[2017-12-24 16:16] VITALS: BP 112/69; RESP 18
== END 2017-12-24 16:00 | disposition home or self-care (01) ==
LOC: CATHCVL 06:12
PROVIDERS: ATTEND Internal Medicine Interventional Cardiology
DX: I25.10 Atherosclerotic heart disease of native coronary artery without angina pectoris (principal); F10.20 Alcohol dependence, uncomplicated; Z82.49 Family history of ischemic heart disease and other diseases of the circulatory system; I08.3 Combined rheumatic disorders of mitral, aortic and tricuspid valves; Z79.899 Other long term (current) drug therapy; Z88.0 Allergy status to penicillin; I11.0 Hypertensive heart disease with heart failure; I50.9 Heart failure, unspecified; I70.0 Atherosclerosis of aorta; F17.210 Nicotine dependence, cigarettes, uncomplicated; I48.1 Persistent atrial fibrillation
CPT/HCPCS: 93312; 93320; 93325; 93460; 85018; 82810; C1769 ×3; C1894 ×3; J2001; J2250; J1200; J3010; Q9967 ×2; J2270

== ENCOUNTER → 2018-01-18 | Outpatient (CLI) | payer OTHER ==
[2018-01-18 14:27] LABS: HGB 13.6 gm/dL (13.0-17.5); MCH 31.3 pg (25.0-35.0); MCHC 35.8 g/dL (31.0-37.0); MCV 87.5 fL (80.0-100.0); Mean Platelet Volume 7.9; Platelet Count 226 k/uL (150-450); RBC 4.34 m/uL (4.30-5.90); RDW 13.5 % (11.5-15.5); WBC 8.7 k/uL (3.8-10.6)
[2018-01-18 14:38] LABS: Anion Gap 13 mmol/L; Blood Urea Nitrogen 13 mg/dL (9-20); Carbon Dioxide 28 mmol/L (22-30); Chloride 105 mmol/L (98-107); Potassium 4.3 mmol/L (3.5-5.1); Sodium 146 mmol/L (137-145)
== END | disposition home or self-care (01) ==
LOC: LABPAT 13:57
PROVIDERS: ATTEND Internal Medicine Interventional Cardiology
DX: Z01.812 Encounter for preprocedural laboratory examination (principal); I25.10 Atherosclerotic heart disease of native coronary artery without angina pectoris
CPT/HCPCS: 36415; 80051; 82565; 84520; 85027

== ENCOUNTER 2018-01-22 14:34 | Observation (INO) | payer OTHER ==
[2018-01-22 17:08] VITALS: BMI 32.3
[2018-01-22] MEDS: ACETAMINOPHEN TAB 325 MG TAB PO PRN (18:10)
[2018-01-22] MEDS ORDERED: ALPRAZolam 0.25 MG TAB PO PRN (18:30)
[2018-01-22] MEDS ORDERED: NITROGLYCERIN SL TABS 0.4 MG TAB SUBLINGUAL PRN (18:30)
[2018-01-22] MEDS: LISINOPRIL 5 MG TAB PO SCH (19:54)
[2018-01-22] MEDS: SODIUM CHLORIDE 0.9% 1,000 ML IV SCH (19:54)
[2018-01-22] MEDS: METOPROLOL TARTRATE 50 MG TAB PO SCH (19:54)
[2018-01-22] MEDS: MELATONIN 5 MG TABLET PO SCH (22:04)
[2018-01-23] MEDS ORDERED: ATORVASTATIN 80 MG TAB PO ONE (06:00)
[2018-01-23] MEDS ORDERED: ASPIRIN 325 MG TAB PO ONE (06:00)
[2018-01-23 06:17] LABS: HCT 40.7 % (39.0-53.0); HGB 13.5 gm/dL (13.0-17.5); MCH 29.3 pg (25.0-35.0); MCHC 33.1 g/dL (31.0-37.0); MCV 88.5 fL (80.0-100.0); Platelet Count 209 k/uL (150-450); RBC 4.59 m/uL (4.30-5.90); RDW 13.7 % (11.5-15.5); WBC 6.5 k/uL (3.8-10.6)
[2018-01-23] MEDS: PANTOPRAZOLE 40 MG TABLET PO SCH (06:20)
[2018-01-23] MEDS: METOPROLOL TARTRATE 50 MG TAB PO SCH (06:21)
[2018-01-23] MEDS: SODIUM CHLORIDE 0.9% 1,000 ML IV SCH ×3 (06:24→22:03)
[2018-01-23 06:30] LABS: Prothrombin Time 9.6 sec (9.0-12.0)
[2018-01-23 06:37] LABS: Anion Gap 10 mmol/L; Blood Urea Nitrogen 14 mg/dL (9-20); Calcium 9.5 mg/dL (8.4-10.2); Carbon Dioxide 27 mmol/L (22-30); Chloride 103 mmol/L (98-107); Glucose 102 mg/dL (74-99); Potassium 4.3 mmol/L (3.5-5.1); Sodium 140 mmol/L (137-145)
[2018-01-23] MEDS ORDERED: MIDAZOLAM 2 MG/2 ML VIAL ONE (07:17)
[2018-01-23] MEDS ORDERED: diphenhydrAMINE 50 MG/ML 1 ML VIAL ONE (07:18)
[2018-01-23] MEDS ORDERED: LIDOCAINE 2% INJ 20 MG/ML (20 ML MDV) ONE (07:18)
[2018-01-23] MEDS ORDERED: fentaNYL (PF) 50 MCG/ML 2 ML AMP ONE (07:26)
[2018-01-23 07:45] LABS: Eosinophils # (M) 0.39 k/uL (0-0.7); Lymphocytes # (M) 1.95 k/uL (1.0-4.8); Neutrophils # (M) 3.97 k/uL (1.3-7.7); Neutrophils % (M) 61 %; Nucleated Red Blood Cells 0 /100 WBC (0-0); Total Cells Counted 100
[2018-01-23] MEDS ORDERED: MORPHINE SULFATE 4 MG/ML SYRINGE ONE (07:45)
[2018-01-23 07:46] LABS: Anisocytosis (M) Present
[2018-01-23 07:47] LABS: Poikilocytosis (M) Present
[2018-01-23] MEDS ORDERED: NON-FORMULARY DRUG (Fish Oil/Dha/Epa [Fish Oil 1,200 Mg Fish Oil] 1 CAP) PO SCH (09:00)
[2018-01-23] MEDS ORDERED: DILTIAZEM CD 180 MG CAP.ER.24H PO SCH (09:00)
[2018-01-23] MEDS ORDERED: TICAGRELOR 90 MG TAB ONE (09:05)
[2018-01-23] MEDS ORDERED: RX INFO: IV CONTRAST WAS GIVEN 1 EACH MISC MISCELLANE PRN (09:08)
[2018-01-23] MEDS ORDERED: MAG HYDROX/AL HYDROX/SIMETH 30 ML CUP PO PRN (09:08)
[2018-01-23] MEDS ORDERED: ZOLPIDEM 5 MG TAB PO PRN (09:08)
[2018-01-23] MEDS ORDERED: NITROGLYCERIN SL TABS 0.4 MG TAB SUBLINGUAL PRN (09:08)
[2018-01-23] MEDS ORDERED: ATROPINE SULFATE 0.1 MG/ML 10ML SYRINGE IV PRN (09:08)
--- NOTE | 2018-01-23 09:56 | CC ---
CARDIAC CATHETERIZATION REPORT DATE OF SERVICE: 01/23/2018 PROCEDURE: 1. Orbital atherectomy of proximal right coronary artery. 2. PTCA and stenting of proximal and mid dominant right coronary artery with a drug- eluting stent. 3. Transvenous temporary pacemaker from right femoral approach. PERFORMED BY: Dr. Perry Valles. Moderate conscious sedation time was 100 minutes. Patient was given a combination of Versed Benadryl and fentanyl. Oxygen saturation, hemodynamics and EKG were monitored closely. CLINICAL INFORMATION: Mr. Tristen Hare is a 52-year-old gentleman who had presented with heart failure and atrial fibrillation. After stabilizing heart failure and atrial fibrillation and this was about 6 weeks ago, he was seen in the office and after adequate anticoagulation, I performed electrical cardioversion for this patient. After that, I performed coronary angiography, which revealed significant lesion in the proximal and mid RCA, proximal lesion was 90% with heavy calcification and the entire RCA was calcified and the mid lesion was about 70%. He was advised elective intervention and brought in for the procedure. There was some abnormality on the CAT scan and therefore this was clarified with an MRI. There was no evidence of any tumor, but there was a question of hemangioma. He was brought in for the procedure electively yesterday but because of long day with other schedule concerns he was moved to this morning. PROCEDURE NOTE: Under local anesthesia and strict aseptic precautions, a 6-Japanese introducer was placed in the right femoral vein and a 6-Japanese introducer in the right femoral artery. A transvenous balloon tipped pacer was positioned in the right ventricular apex. Thresholds were obtained was 0.6 mV. The pacemaker was set at a backup rate of 40 and mA of 5.0. I then used a KRH catheter to selectively cannulate the right coronary artery. A run-through wire was used to cross the lesion. I exchanged with a SuperCross straight catheter for a ViperWire. I then under fluoroscopic guidance advanced the orbital atherectomy catheter and with this I made 3 passes. The patient required to be paced during the process. Following this, I exchanged with a FineCross catheter to a run-through wire that was already there. I tried to advance a 2.75 caliber 15 mm stent but I had difficulty and therefore I double wired it with a BMW wire. With this BMW wire combination, I deployed the 2.75 caliber 15 mm stent in the distal aspect, which was actually in the mid RCA. This stent was deployed at 14 atmospheres. Subsequently, using the same 2 wire system, I deployed in the proximal portion a 15 mm long 3.0 caliber Xience stent. Between the 2 stents, I deployed a 3.0 caliber 23 mm long Xience stent. During the positioning of the stent, there was transient bradycardia with transient occlusion of conus branch. However, at the end of the procedure, the conus branch was widely patent with brisk flow. Three stents were widely patent. Excellent angiographic result without complication was achieved. Patient had mild EKG changes and also mild chest discomfort with inflations. Excellent angiographic result without complication was achieved. Patient received Angiomax bolus and drip as per protocol. He also received Brilinta 180 mg p.o. We will resume his Eliquis after discharge, but for now he will be on a combination of aspirin and Brilinta. The sheaths were left in place and we will keep them for another 2 hours or so to ensure that he does not require the pacemaker and then the sheaths will be taken out and the pacemaker also will be taken out. This was explained to the patient and family. Patient will be discharged tomorrow if he remains stable. MMODL / IJN: [id number] /
--- NOTE | 2018-01-23 09:56 | LTR ---
January 23, 2018 Re: Tristen Hare Dear Dr. Valderrama: Thank you for the opportunity to participate in the care of Mr. Hare. Please find enclosed my detailed PTCA report for your records. An excellent angiographic result was achieved. I expect he will be discharged tomorrow if he remains stable. Thank you for your referral and please call for questions. With kindest regards. Sincerely yours, MD MARTY Cee / ALISHA: [id number] /
[2018-01-23] MEDS ORDERED: MULTIVITAMINS, THERA 1 EACH TAB PO SCH (12:00)
[2018-01-23 12:12] LABS: Magnesium 1.9 mg/dL (1.6-2.3); Potassium 4.1 mmol/L (3.5-5.1)
[2018-01-23] MEDS ORDERED: ATORVASTATIN 80 MG TAB PO SCH (21:00)
[2018-01-23] MEDS: LISINOPRIL 5 MG TAB PO SCH (21:54)
[2018-01-23] MEDS: MELATONIN 5 MG TABLET PO SCH (22:02)
[2018-01-23 22:33] VITALS: RESP 18
[2018-01-23] MEDS: ACETAMINOPHEN TAB 325 MG TAB PO PRN (22:47)
[2018-01-24 06:28] LABS: Basophils # (A) 0.1 k/uL (0-0.2); Basophils % (A) 1 %; Eosinophils # (A) 0.2 k/uL (0-0.7); Eosinophils % (A) 3 %; HCT 39.3 % (39.0-53.0); HGB 13.1 gm/dL (13.0-17.5); Lymphocytes # (A) 2.1 k/uL (1.0-4.8); Lymphocytes % (A) 26 %; MCHC 33.4 g/dL (31.0-37.0); MCV 89.7 fL (80.0-100.0); Mean Platelet Volume 7.9; Monocytes # (A) 0.7 k/uL (0-1.0); Monocytes % (A) 8 %; Neutrophils # (A) 4.6 k/uL (1.3-7.7); Neutrophils % (A) 58 %; Platelet Count 203 k/uL (150-450); RBC 4.38 m/uL (4.30-5.90); RDW 14.2 % (11.5-15.5)
[2018-01-24] MEDS: PANTOPRAZOLE 40 MG TABLET PO SCH (06:32)
[2018-01-24 06:35] LABS: Anion Gap 11 mmol/L; Blood Urea Nitrogen 14 mg/dL (9-20); Calcium 9.5 mg/dL (8.4-10.2); Carbon Dioxide 25 mmol/L (22-30); Chloride 105 mmol/L (98-107); Glucose 112 mg/dL (74-99); Potassium 4.3 mmol/L (3.5-5.1); Sodium 141 mmol/L (137-145)
--- NOTE | 2018-01-24 07:57 | DS ---
DISCHARGE SUMMARY DATE OF ADMISSION: 01/22/2018 DATE OF DISCHARGE: 01/24/2018. DIAGNOSES: 1. Unstable angina. 2. Paroxysmal atrial fibrillation. 3. Cardiomyopathy. 4. History of coronary artery disease, brought in for elective PCI of RCA. PROCEDURES PERFORMED: 1. Orbital atherectomy and stenting of RCA. 2. Transvenous temporary pacemaker from right femoral approach. Mr. Hare was brought in electively for a PCI of a complex calcified RCA lesion. However, on the day of his admission, his procedure was postponed because of emergencies and patient was kept overnight and hydrated. On 01/23/2018, I performed orbital atherectomy and stenting of a complex calcified RCA in a long segment with drug- eluting stents. Excellent angiographic result was achieved. The patient's sheaths in the groin were taken out. His postprocedure course was uneventful. This morning, he is doing well without symptoms. His blood pressure is 118/70, pulse rate is 70 per minute. No JVD or carotid bruit. S1, S2 heard normally. Lungs are clear. Abdomen is soft, nontender. Right groin is soft and dry with a very small area of ecchymosis and pulse is good. Central nervous system is normal. EKG is unremarkable reveals a sinus rhythm. Laboratory data is unremarkable. I evaluated the patient this morning and explained to him his discharge instructions, activity and medications. He will not be taking Eliquis for 48 hours and then I will resume it at a lower dose after 48 hours. All other medications were reviewed and he will take the current medications including Lipitor, beta laura, Brilinta and aspirin. I will see him in the office on Sunday at 10:45 am. Advised to call me for question, concern or problem. MMODL / IJN: [id number] /
[2018-01-24 08:34] VITALS: PULSE 75; TEMP 97.1
[2018-01-24] MEDS ORDERED: TICAGRELOR 90 MG TAB PO SCH (09:00)
[2018-01-24] MEDS ORDERED: METOPROLOL TARTRATE 25 MG TAB PO SCH (09:00)
[2018-01-24] MEDS ORDERED: ASPIRIN 81 MG PO SCH ×2 (09:00)
[2018-01-25 10:38] VITALS: BP 108/50
== END 2018-01-24 09:01 | disposition home or self-care (01) ==
LOC: 6SEL 17:01 → 6ICU 01-23 10:28 → 6SEL 01-23 10:31
PROVIDERS: ADMIT Internal Medicine Interventional Cardiology; ATTEND Internal Medicine Interventional Cardiology
DX: I25.110 Atherosclerotic heart disease of native coronary artery with unstable angina pectoris (principal); I48.0 Paroxysmal atrial fibrillation; I11.0 Hypertensive heart disease with heart failure; I50.9 Heart failure, unspecified; I34.0 Nonrheumatic mitral (valve) insufficiency; Z79.01 Long term (current) use of anticoagulants; Z79.899 Other long term (current) drug therapy; Z88.0 Allergy status to penicillin; Z87.891 Personal history of nicotine dependence; Z79.82 Long term (current) use of aspirin
CPT/HCPCS: 92924; 33210; 80051; 80048 ×2; 83735; 85025 ×2; 85610; 99152; 99153 ×5; G0378 ×4; G0379; C1769 ×6; C1887 ×2; C1725; C1894; C1874; C1714

== ENCOUNTER → 2018-02-19 | Outpatient (CLI) | payer OTHER ==
--- NOTE | 2018-02-19 18:52 | PN ---
PROGRESS NOTE This patient is 52 years old and he was initially seen in consultation due to concerns about obstructive sleep apnea. He was seen in the office on 07/24/2017. Back then the patient's sleep was fragmented. He had loud snoring and there was a concern about sleep breathing disorder. He was ingesting a significant amount of alcohol and he was still smoking. He was hypertensive. He was referred for a screening polysomnogram; however, the test was not done. In the interim the patient had significant cardiac complications. He was hospitalized with atrial fibrillation RVR and shortness of breath. During the same hospitalization the patient was found to have coronary artery disease and moderate to severe mitral regurgitation. He was optimized. He received cardioversion. He was placed on cardiac medications to control his atrial fibrillation and ultimately he converted into sinus. He also had a cardiac catheterization and stenting of the RCA. He is under the care of Dr. Perry Valles. Currently he is using metoprolol 25 mg p.o. twice a day, Brilinta 90 mg twice a day, lisinopril 5 mg p.o. daily, omeprazole 20 mg p.o. daily, Eliquis 5 mg twice a day and Proventil rescue inhaler on an as-needed basis. He is also on Lipitor. As far as his symptoms of sleep apnea, he is still actively snoring and his sleep is still fragmented. He has quit smoking. He has also quit drinking. Note that he was drinking up to 15 beers on a daily basis. We are back for further evaluation. His [place] score is 16 and the patient is going to need a screening polysomnogram to rule out the possibility of obstructive sleep apnea. He is free of any angina. REVIEW OF SYSTEMS: Twelve-point review of systems is essentially identical to the previous evaluation, with some more increased symptoms of exertional dyspnea. No angina. He is still snoring. He has nocturia. He grinds his teeth. He has occasional restlessness in his lower extremities bilaterally. No anxiety. No panic attacks. No palpitations. No irregular heart beats. No other complaints otherwise. PHYSICAL EXAMINATION: BP is 143/82, pulse 74, respirations 18, sinus, temperature 97.3, saturation 95% on room air. Weight is 251. Height is 5 feet 10 inches. [place] score is 16. BMI 36.0. GENERAL APPEARANCE: Calm, comfortable. Head is atraumatic, normocephalic. Neck is short, supple. Crowding of the posterior pharynx is seen. No goiter or neck masses. LUNGS: Clear. Diminished in lung bases. HEART: Sounds are regular rate and rhythm. Normal S1, S2. No S3, S4. No murmurs. ABDOMEN: Soft, nontender. No organomegaly. EXTREMITIES: No edema. No cyanosis or clubbing. NEUROLOGIC: The patient is alert and oriented x3. No focal neurological deficits. Psychiatrically there was no anxiety or depression. IMPRESSION: 1. Obstructive sleep apnea clinically suspected, still under investigation. The patient is awaiting a screening polysomnogram. 2. Coronary artery disease with recent catheterization and stenting of right coronary artery. 3. Moderate to severe mitral regurgitation. 4. Paroxysmal atrial fibrillation. Current rhythm is sinus. 5. Obesity with a body mass index of 36.8. 6. Mild chronic obstructive pulmonary disease. 7. Mild aneurysmal dilatation of the ascending aorta. PLAN: 1. The patient has cut down his alcohol drinking to none. 2. The patient has not smoked since October of 2016. 3. Encourage weight loss. 4. Proceed with a screening polysomnogram, looking for any significant sleep breathing disorder, and treat accordingly. MMODL / IJN: [id number] /
== END | disposition home or self-care (01) ==
LOC: SLEEP 16:17
PROVIDERS: ATTEND Internal Medicine Critical Care Medicine
DX: R06.83 Snoring (principal); I25.10 Atherosclerotic heart disease of native coronary artery without angina pectoris; I34.0 Nonrheumatic mitral (valve) insufficiency; I71.2 Thoracic aortic aneurysm, without rupture; I48.0 Paroxysmal atrial fibrillation; E66.9 Obesity, unspecified; J44.9 Chronic obstructive pulmonary disease, unspecified; Z95.5 Presence of coronary angioplasty implant and graft; Z68.36 Body mass index [BMI] 36.0-36.9, adult; Z79.01 Long term (current) use of anticoagulants; Z87.891 Personal history of nicotine dependence

== ENCOUNTER 2018-04-14 05:24 | Inpatient (IN) | payer BC ==
[2018-04-14 05:53] LABS: Basophils # (A) 0.1 k/uL (0-0.2); Basophils % (A) 1 %; Eosinophils # (A) 0.2 k/uL (0-0.7); Eosinophils % (A) 2 %; HCT 39.5 % (39.0-53.0); HGB 12.8 gm/dL (13.0-17.5); Lymphocytes # (A) 1.6 k/uL (1.0-4.8); Lymphocytes % (A) 14 %; MCH 28.8 pg (25.0-35.0); MCHC 32.4 g/dL (31.0-37.0); MCV 88.8 fL (80.0-100.0); Mean Platelet Volume 8.5; Monocytes # (A) 0.6 k/uL (0-1.0); Monocytes % (A) 6 %; Neutrophils # (A) 8.4 k/uL (1.3-7.7); Neutrophils % (A) 75 %; Platelet Count 211 k/uL (150-450); RBC 4.45 m/uL (4.30-5.90); RDW 13.6 % (11.5-15.5); WBC 11.2 k/uL (3.8-10.6)
[2018-04-14 06:01] LABS: Partial Thromboplastin Time 23.8 sec (22.0-30.0)
[2018-04-14 06:02] LABS: ALT 61 U/L (21-72); AST 40 U/L (17-59); Albumin 4.1 g/dL (3.5-5.0); Alkaline Phosphatase 111 U/L (38-126); Anion Gap 6 mmol/L; Blood Urea Nitrogen 18 mg/dL (9-20); Calcium 9.3 mg/dL (8.4-10.2); Carbon Dioxide 24 mmol/L (22-30); Chloride 112 mmol/L (98-107); Glucose 133 mg/dL (74-99); Magnesium 1.5 mg/dL (1.6-2.3); Potassium 4.3 mmol/L (3.5-5.1); Sodium 142 mmol/L (137-145); Total Protein 6.5 g/dL (6.3-8.2)
[2018-04-14] MEDS ORDERED: DILTIAZEM DRIP BOLUS FROM BAG 1 MG SOLN IV ONE ×2 (06:19→07:02)
[2018-04-14] MEDS: DILTIAZEM 50 MG in SODIUM CHLORIDE 0.9% 40 ML IV SCH ×2 (06:20→09:06)
[2018-04-14 06:28] LABS: Troponin I 0.016 ng/mL (0.000-0.034)
--- NOTE | 2018-04-14 06:33 | XR ---
EXAMINATION TYPE: XR chest 1V portable DATE OF EXAM: 04/14/2018 COMPARISON: 11/06/2017 HISTORY: Difficulty breathing TECHNIQUE: Single frontal view of the chest is obtained. FINDINGS: There is some pulmonary vascular congestion. Heart is probably enlarged. There are chest l [place]. IMPRESSION: There is evidence of likely new congestive heart failure compared to old exam. Pneumonia is also possible in the lower lobes.
[2018-04-14] MEDS ORDERED: NITROGLYCERIN SL TABS 0.4 MG TAB SUBLINGUAL PRN ×2 (06:37→13:00)
[2018-04-14 06:45] LABS: Creatine Kinase MB 2.6 ng/mL (0.0-2.4)
[2018-04-14] MEDS ORDERED: FUROSEMIDE 10 MG/ML 4 ML VIAL IV STA (06:48)
--- NOTE | 2018-04-14 07:27 | ED ---
SOB HPI - General Chief Complaint: Shortness of Breath Stated Complaint: SOB Time Seen by Provider: 04/14/18 05:40 Source: patient Mode of arrival: ambulatory Limitations: no limitations - History of Present Illness Initial Comments: This patient is a 52-year-old man who presents to be evaluated for shortness of breath and also palpitations. This developed tonight on between 11 and midnight after he had tried sleep. He was then unable to lie down as his breathing got worse every time he tried to go back to bed. He states it feels similar to previous atrial fibrillation that he had. The patient did initially have some pain between his shoulder blades but that had resolved he is only complaining of the dyspnea. MD Complaint: shortness of breath -: hour(s) Consistency: constant Improves With: oxygen, upright position Worsens With: lying flat Known History Of: other (Atrial fibrillation) Context: other (In bed) Associated Symptoms: denies other symptoms - Related Data Home Medications Medication Instructions Recorded Confirmed Multivitamin [Men's Multi-Vitamin] 1 tab PO DAILY 01/22/14 04/14/18 Fish Oil/Dha/Epa [Fish Oil 1,200 1 cap PO DAILY 11/06/17 04/14/18 mg Fish Oil] Lisinopril [Zestril] 5 mg PO DAILY 11/28/17 04/14/18 Mv-Min/Vit C/Glut/Lysine/Hb124 1 tab PO DAILY 01/22/18 04/14/18 [Airborne Effervescent Tablet] Citalopram Hydrobromide [CeleXA] 20 mg PO DAILY 04/14/18 04/14/18 Clopidogrel [Plavix] 75 mg PO DAILY 04/14/18 04/14/18 Glycopyrrolate/Formoterol Fum 1 puff INHALATION RT-BID 04/14/18 04/14/18 [Bevespi Aerosphere Inhaler] Metoprolol Tartrate [Lopressor] 12.5 mg PO BID 04/14/18 04/14/18 Omeprazole 20 mg PO DAILY 04/14/18 04/14/18 Previous Rx's Medication Instructions Recorded Aspirin [Adult Low Dose Aspirin EC] 81 mg PO DAILY #30 tablet. 01/24/18 Atorvastatin [Lipitor] 80 mg PO HS #90 tab 01/24/18 Nitroglycerin Sl Tabs [Nitrostat] 0.4 mg SUBLINGUAL Q5M PRN #25 tab 01/24/18 Allergies Allergy/AdvReac Type Severity Reaction Status Date / Time Penicillins Allergy Unknown Verified 04/14/18 11:27 Childhood Review of Systems ROS Statement: Those systems with pertinent positive or pertinent negative responses have been documented in the HPI. ROS Other: All systems not noted in ROS Statement are negative. Constitutional: Denies: fever, chills, weakness Respiratory: Reports: dyspnea. Denies: cough, wheezes Cardiovascular: Reports: palpitations, orthopnea. Denies: chest pain, edema, syncope Gastrointestinal: Denies: abdominal pain, nausea, vomiting, diarrhea Genitourinary: Denies: dysuria, hematuria Musculoskeletal: Denies: back pain Skin: Denies: rash Neurological: Denies: headache, weakness, numbness Psychiatric: Reports: anxiety Past Medical History Past Medical History: Atrial Fibrillation, GERD/Reflux, GI Bleed, Hypertension Additional Past Medical History / Comment(s): Upper GI bleed, diverticular dx. SHORTNESS OF BREATH History of Any Multi-Drug Resistant Organisms: None Reported Past Surgical History: Appendectomy, Heart Catheterization With Stent Additional Past Surgical History / Comment(s): colonoscopy, EGD Past Anesthesia/Blood Transfusion Reactions: No Reported Reaction Past Psychological History: No Psychological Hx Reported Smoking Status: Former smoker Past Alcohol Use History: Occasional Past Drug Use History: None Reported - Past Family History Father Family Medical History: Congestive Heart Failure (CHF) Additional Family Medical History / Comment(s): Father of CHF at the age of 68yrs. Mother Family Medical History: No Reported History Additional Family Medical History / Comment(s): Mother at the age of 62 or 63 yrs from myasthenia gravis. General Exam Limitations: no limitations General appearance: alert, in distress Head exam: Present: atraumatic, normocephalic Eye exam: Present: normal appearance. Absent: scleral icterus, conjunctival injection ENT exam: Present: normal oropharynx Neck exam: Present: full ROM Respiratory exam: Present: respiratory distress, rales (Bilateral bases). Absent: wheezes, rhonchi, stridor, accessory muscle use, decreased breath sounds Cardiovascular Exam: Present: tachycardia, irregular rhythm, normal heart sounds. Absent: systolic murmur, diastolic murmur, rubs, gallop GI/Abdominal exam: Present: soft. Absent: distended, tenderness, guarding, rebound Extremities exam: Present: normal inspection, normal capillary refill. Absent: pedal edema, calf tenderness Back exam: Present: normal inspection. Absent: CVA tenderness (R), CVA tenderness (L) Neurological exam: Present: alert Skin exam: Present: warm, dry, intact, normal color. Absent: rash Course Vital Signs 04/14/18 04/14/18 04/14/18 05:26 06:22 06:24 Temperature 97.7 F Pulse Rate 98 127 H 114 H Pulse Rate [ Pulse Oximetery ] Respiratory 26 H 20 22 Rate Blood Pressure 170/108 159/75 Blood Pressure [Left Arm] O2 Sat by Pulse 89 L 95 Oximetry 04/14/18 04/14/18 04/14/18 06:56 07:00 07:25 Temperature Pulse Rate 115 H 111 H 120 H Pulse Rate [ Pulse Oximetery ] Respiratory 19 20 16 Rate Blood Pressure 115/74 127/87 127/87 Blood Pressure [Left Arm] O2 Sat by Pulse 93 L 100 Oximetry 04/14/18 04/14/18 04/14/18 08:04 08:08 10:58 Temperature Pulse Rate 113 H 111 H Pulse Rate [ 122 H Pulse Oximetery ] Respiratory 20 16 16 Rate Blood Pressure 151/88 123/86 Blood Pressure 117/80 [Left Arm] O2 Sat by Pulse 95 96 96 Oximetry 04/14/18 04/14/18 04/14/18 11:58 13:39 14:20 Temperature 98.3 F Pulse Rate 99 114 H 97 Pulse Rate [ Pulse Oximetery ] Respiratory 16 16 16 Rate Blood Pressure 147/90 114/81 129/62 Blood Pressure [Left Arm] O2 Sat by Pulse 96 95 95 Oximetry Medical Decision Making - Lab Data Result diagrams: 04/16/18 06:04 04/16/18 06:04 Lab Results 04/14/18 04/14/18 04/14/18 Range/Units 05:40 05:40 05:40 WBC 11.2 H (3.8-10.6) k/uL RBC 4.45 (4.30-5.90) m/uL Hgb 12.8 L (13.0-17.5) gm/dL Hct 39.5 (39.0-53.0) % MCV 88.8 (80.0-100.0) fL MCH 28.8 (25.0-35.0) pg MCHC 32.4 (31.0-37.0) g/dL RDW 13.6 (11.5-15.5) % Plt Count 211 (150-450) k/uL Neutrophils % 75 % Lymphocytes % 14 % Monocytes % 6 % Eosinophils % 2 % Basophils % 1 % Neutrophils # 8.4 H (1.3-7.7) k/uL Lymphocytes # 1.6 (1.0-4.8) k/uL Monocytes # 0.6 (0-1.0) k/uL Eosinophils # 0.2 (0-0.7) k/uL Basophils # 0.1 (0-0.2) k/uL PT (9.0-12.0) sec INR (<1.2) APTT (22.0-30.0) sec Sodium 142 (137-145) mmol/L Potassium 4.3 (3.5-5.1) mmol/L Chloride 112 H (98-107) mmol/L Carbon Dioxide 24 (22-30) mmol/L Anion Gap 6 mmol/L BUN 18 (9-20) mg/dL Creatinine 0.80 (0.66-1.25) mg/dL Est GFR (CKD-EPI)AfAm >90 (>60 ml/min/1.73 sqM) Est GFR (CKD-EPI)NonAf >90 (>60 ml/min/1.73 sqM) Glucose 133 H (74-99) mg/dL Calcium 9.3 (8.4-10.2) mg/dL Magnesium 1.5 L (1.6-2.3) mg/dL Total Bilirubin 1.0 (0.2-1.3) mg/dL AST 40 (17-59) U/L ALT 61 (21-72) U/L Alkaline Phosphatase 111 (38-126) U/L Total Creatine Kinase 236 H (55-170) U/L CK-MB (CK-2) 2.6 H* (0.0-2.4) ng/mL CK-MB (CK-2) Rel Index 1.1 Troponin I 0.016 (0.000-0.034) ng/mL NT-Pro-B Natriuret Pep pg/mL Total Protein 6.5 (6.3-8.2) g/dL Albumin 4.1 (3.5-5.0) g/dL TSH (0.465-4.680) mIU/L 04/14/18 04/14/18 04/14/18 Range/Units 05:40 05:40 05:40 WBC (3.8-10.6) k/uL RBC (4.30-5.90) m/uL Hgb (13.0-17.5) gm/dL Hct (39.0-53.0) % MCV (80.0-100.0) fL MCH (25.0-35.0) pg MCHC (31.0-37.0) g/dL RDW (11.5-15.5) % Plt Count (150-450) k/uL Neutrophils % % Lymphocytes % % Monocytes % % Eosinophils % % Basophils % % Neutrophils # (1.3-7.7) k/uL Lymphocytes # (1.0-4.8) k/uL Monocytes # (0-1.0) k/uL Eosinophils # (0-0.7) k/uL Basophils # (0-0.2) k/uL PT 10.0 (9.0-12.0) sec INR 1.0 (<1.2) APTT 23.8 (22.0-30.0) sec Sodium (137-145) mmol/L Potassium (3.5-5.1) mmol/L Chloride (98-107) mmol/L Carbon Dioxide (22-30) mmol/L Anion Gap mmol/L BUN (9-20) mg/dL Creatinine (0.66-1.25) mg/dL Est GFR (CKD-EPI)AfAm (>60 ml/min/1.73 sqM) Est GFR (CKD-EPI)NonAf (>60 ml/min/1.73 sqM) Glucose (74-99) mg/dL Calcium (8.4-10.2) mg/dL Magnesium (1.6-2.3) mg/dL Total Bilirubin (0.2-1.3) mg/dL AST (17-59) U/L ALT (21-72) U/L Alkaline Phosphatase (38-126) U/L Total Creatine Kinase (55-170) U/L CK-MB (CK-2) (0.0-2.4) ng/mL CK-MB (CK-2) Rel Index Troponin I (0.000-0.034) ng/mL NT-Pro-B Natriuret Pep 3790 pg/mL Total Protein (6.3-8.2) g/dL Albumin (3.5-5.0) g/dL TSH 1.610 (0.465-4.680) mIU/L - EKG Data -: EKG Interpreted by Me EKG shows normal: axis (Normal), intervals (Normal), QRS complexes (Incomplete right bundle branch block) Rate: tachycardia (The underlying rhythm is atrial fibrillation with a rate approximately 154 bpm) Interpretation: nonspecific ST-T wave changes Critical Care Time Critical Care Time: Yes (40 minutes) Disposition Clinical Impression: Atrial fibrillation with RVR, CHF (congestive heart failure) Disposition: ADMITTED IP TO THIS [facility] Condition: Serious
[2018-04-14] MEDS ORDERED: ENOXAPARIN 120 MG/0.8 ML SYRINGE SQ STA (07:28)
[2018-04-14 08:14] LABS: Appearance,Urine Clear (Clear); Bilirubin,Urine Negative (Negative); Blood,Urine Negative (Negative); Color,Urine Colorless; Glucose,Urine (UA) Negative (Negative); Ketones,Urine Negative (Negative); Leukocyte Esterase,Urine Negative (Negative); Nitrite,Urine Negative (Negative); Protein,Urine Negative (Negative); Specific Gravity,Urine 1.006 (1.001-1.035); Urobilinogen,Urine <2.0 mg/dL (<2.0)
[2018-04-14] MEDS ORDERED: ASPIRIN 81 MG PO SCH (09:00)
[2018-04-14] MEDS ORDERED: METOPROLOL TARTRATE 25 MG TAB PO SCH (09:00)
[2018-04-14] MEDS ORDERED: TICAGRELOR 90 MG TAB PO SCH (09:00)
[2018-04-14] MEDS: MULTIVITAMINS, THERA 1 EACH TAB PO SCH (09:09)
[2018-04-14 12:47] LABS: Creatine Kinase MB 2.2 ng/mL (0.0-2.4); Troponin I 0.015 ng/mL (0.000-0.034)
[2018-04-14] MEDS ORDERED: METOPROLOL TARTRATE 25 MG TAB PO STA (13:16)
--- NOTE | 2018-04-14 13:32 | P.HPIM ---
History of Present Illness 51-year-old pleasant gentleman with history of hiatal fibrillation the past on 2.5 mg eliquis along with aspirin and Plavix for his recent stent to RCA. Patient came in with comments of shortness of breath found to be in atrial fibrillation patient was comparing of orthopnea patient was recently diagnosed with sleep apnea and did not give me a clear history of proximal nocturnal dyspnea because of her is the sleep apnea issue. Patient had a normal ejection fraction the past although patient appears to have crackles in bilateral lower lung bases with elevated BNP and an elevated JVD. Because of which I'm discontinuing the Cardizem drip patient will dose of metoprolol will be increased. Patient was given a dose of Lasix here. Cardiology will evaluate the patient. Patient denied any fever chills dysuria. Review of Systems REVIEW OF SYSTEMS: CONSTITUTIONAL: No fever, no malaise, no fatigue. HEENT: No recent visual problems or hearing problems. Denied any sore throat. CARDIOVASCULAR: No chest pain, no palpitations, no syncope. PULMONARY: no cough, no hemoptysis. GASTROINTESTINAL: No diarrhea, no nausea, no vomiting, no abdominal pain. Normoactive bowel sounds. NEUROLOGICAL: No headaches, no weakness, no numbness. HEMATOLOGICAL: Denies any bleeding or petechiae. GENITOURINARY: Denies any burning micturition, frequency, or urgency. MUSCULOSKELETAL/RHEUMATOLOGICAL: Denies any joint pain, swelling, or any muscle pain. ENDOCRINE: Denies any polyuria or polydipsia. The rest of the 14-point review of systems is negative. Past Medical History Past Medical History: Atrial Fibrillation, GERD/Reflux, GI Bleed, Hypertension Additional Past Medical History / Comment(s): Upper GI bleed, diverticular dx. SHORTNESS OF BREATH History of Any Multi-Drug Resistant Organisms: None Reported Past Surgical History: Appendectomy, Heart Catheterization With Stent Additional Past Surgical History / Comment(s): colonoscopy, EGD Past Anesthesia/Blood Transfusion Reactions: No Reported Reaction Past Psychological History: No Psychological Hx Reported Smoking Status: Former smoker Past Alcohol Use History: Occasional Past Drug Use History: None Reported - Past Family History Father Family Medical History: Congestive Heart Failure (CHF) Additional Family Medical History / Comment(s): Father of CHF at the age of 68yrs. Mother Family Medical History: No Reported History Additional Family Medical History / Comment(s): Mother at the age of 62 or 63 yrs from myasthenia gravis. Medications and Allergies Home Medications Medication Instructions Recorded Confirmed Type Multivitamin [Men's Multi-Vitamin] 1 tab PO DAILY 01/22/14 04/14/18 History Fish Oil/Dha/Epa [Fish Oil 1,200 1 cap PO DAILY 11/06/17 04/14/18 History mg Fish Oil] Lisinopril [Zestril] 5 mg PO DAILY 11/28/17 04/14/18 History Mv-Min/Vit C/Glut/Lysine/Hb124 1 tab PO DAILY 01/22/18 04/14/18 History [Airborne Effervescent Tablet] Aspirin [Adult Low Dose Aspirin EC] 81 mg PO DAILY #30 tablet. 01/24/18 Rx Atorvastatin [Lipitor] 80 mg PO HS #90 tab 01/24/18 04/14/18 Rx Nitroglycerin Sl Tabs [Nitrostat] 0.4 mg SUBLINGUAL Q5M PRN #25 tab 01/24/1801/25 Rx Citalopram Hydrobromide [CeleXA] 20 mg PO DAILY 04/14/18 04/14/18 History Clopidogrel [Plavix] 75 mg PO DAILY 04/14/18 04/14/18 History Glycopyrrolate/Formoterol Fum 1 puff INHALATION RT-BID 04/14/18 04/14/18 History [Bevespi Aerosphere Inhaler] Metoprolol Tartrate [Lopressor] 12.5 mg PO BID 04/14/18 04/14/18 History Omeprazole 20 mg PO DAILY 04/14/18 04/14/18 History Allergies Allergy/AdvReac Type Severity Reaction Status Date / Time Penicillins Allergy Unknown Verified 04/14/18 11:27 Childhood Physical Exam Vitals: Vital Signs Temp Pulse Resp BP Pulse Ox 04/14/18 11:58 99 16 147/90 96 04/14/18 10:58 111 H 16 123/86 96 04/14/18 08:08 113 H 16 151/88 96 04/14/18 07:25 120 H 16 127/87 100 04/14/18 07:00 111 H 20 127/87 93 L 04/14/18 06:56 115 H 19 115/74 04/14/18 06:24 114 H 22 0805/18 06:22 127 H 20 159/75 95 04/14/18 05:26 97.7 F 98 26 H 170/108 89 L Intake and Output 04/13/18 04/14/18 04/14/18 22:59 06:59 14:59 Intake Total 1.25 25.167 Balance 1.25 25.167 Intake: Intake, IV Titration 1.25 25.167 Amount Diltiazem 50 mg In Sodium 1.25 25.167 Chloride 0.9% 40 ml @ Per Protocol IV .Q0M [facility] Rx#:[id number] Other: Weight 111.13 kg PHYSICAL EXAMINATION: GENERAL: The patient is alert and oriented x3, not in any acute distress. Well developed, well nourished. HEENT: Pupils are round and equally reacting to light. EOMI. No scleral icterus. No conjunctival pallor. Normocephalic, atraumatic. No pharyngeal erythema. No thyromegaly. CARDIOVASCULAR: S1 and S2 present. No murmurs, rubs, or gallops. Does have elevated JVD PULMONARY: Bibasilar crackles were appreciated ABDOMEN: Soft, nontender, nondistended, normoactive bowel sounds. No palpable organomegaly. MUSCULOSKELETAL: No joint swelling or deformity. EXTREMITIES: No cyanosis, clubbing, or pedal edema. NEUROLOGICAL: Gross neurological examination did not reveal any focal deficits. SKIN: No rashes. Results CBC & Chem 7: 04/14/18 05:40 04/14/18 05:40 Labs: Abnormal Lab Results - Last 24 Hours (Table) 04/14/18 04/14/18 04/14/18 Range/Units 05:40 05:40 05:40 WBC 11.2 H (3.8-10.6) k/uL Hgb 12.8 L (13.0-17.5) gm/dL Neutrophils # 8.4 H (1.3-7.7) k/uL Chloride 112 H (98-107) mmol/L Glucose 133 H (74-99) mg/dL Magnesium 1.5 L (1.6-2.3) mg/dL Total Creatine Kinase 236 H (55-170) U/L CK-MB (CK-2) 2.6 H* (0.0-2.4) ng/mL 04/14/18 Range/Units 11:42 WBC (3.8-10.6) k/uL Hgb (13.0-17.5) gm/dL Neutrophils # (1.3-7.7) k/uL Chloride (98-107) mmol/L Glucose (74-99) mg/dL Magnesium (1.6-2.3) mg/dL Total Creatine Kinase 189 H (55-170) U/L CK-MB (CK-2) (0.0-2.4) ng/mL Assessment and Plan Plan: -Atrial fibrillation with rapid ventricular rate patient appears to have proximal A. fib, management as mentioned above increase the dose of metoprolol discontinue Cardizem drip. Patient will be resumed on anti-correlation -Coronary artery disease with recent stent to RCA. Patient will be resumed on dual antiplatelet therapy -Possible cardiomyopathy: Patient previous ejection fraction is essentially within normal limits patient does have pulmonary edema which may be secondary to new systolic dysfunction are secondary to atrial fibrillation itself lisinopril will be continued. Patient received 1 dose of diuretic therapy -Hyperlipidemia -Hypertension -Previous history of nicotine use he quit smoking in month of October -Sleep apnea -Gastroesophageal reflux disease
[2018-04-14] MEDS: FUROSEMIDE 10 MG/ML 2 ML VIAL IV SCH ×2 (14:21→21:25)
[2018-04-14] MEDS: MAGNESIUM SULFATE-D5W PMX 1 GM in DEXTROSE/WATER 1 100ML.BAG IVPB SCH ×2 (14:22→15:40)
[2018-04-14 18:06] LABS: Creatine Kinase MB 1.7 ng/mL (0.0-2.4); Troponin I 0.013 ng/mL (0.000-0.034)
[2018-04-14] MEDS ORDERED: APIXABAN 2.5 MG TABLET PO SCH (21:00)
[2018-04-14] MEDS: LISINOPRIL 5 MG TAB PO SCH (21:25)
[2018-04-14] MEDS: ATORVASTATIN 80 MG TAB PO SCH (21:25)
[2018-04-14] MEDS: METOPROLOL TARTRATE 50 MG TAB PO SCH (21:25)
[2018-04-15] MEDS: PANTOPRAZOLE 40 MG TABLET PO SCH (06:07)
[2018-04-15 06:34] LABS: Anion Gap 8 mmol/L; Blood Urea Nitrogen 17 mg/dL (9-20); Calcium 9.2 mg/dL (8.4-10.2); Carbon Dioxide 26 mmol/L (22-30); Chloride 105 mmol/L (98-107); Cholesterol 115 mg/dL (<200); Glucose 105 mg/dL (74-99); HDL Cholesterol 44 mg/dL (40-60); LDL Cholesterol,Calculated 51 mg/dL (0-99); Potassium 4.1 mmol/L (3.5-5.1); Sodium 139 mmol/L (137-145); Triglycerides 100 mg/dL (<150)
--- NOTE | 2018-04-15 08:00 | P.CRDCN ---
History of Present Illness Consult date: 04/14/18 Requesting physician: Jeannette Martin Consult reason: atrial fibrillation Chief complaint: Shortness of breath History of present illness: This is a 52-year-old gentleman with history of hypertension, nicotine abuse, he may choose a history of premature coronary artery disease, hyperlipidemia, follows with Dr. Anu Valles in the office, he also has a known history of coronary artery disease and in January of this year underwent orbital arthrectomy of the proximal RCA with subsequent PTCA and stenting of that vessel. He presents to the hospital on this occasion with symptoms of shortness of breath, which has been progressively worsening over the past few days. Positive PND and orthopnea, positive palpitations. EKG on arrival here showed atrial fibrillation with a rapid ventricular response. Chest x-ray revealed evidence of new congestive heart failure as compared with old exam. Pneumonia was also documented to be possible in the lower lobes. White blood cell count 11.2, hemoglobin 12.8, platelet count 211. Sodium 142, potassium 4.3 , BUN 18, creatinine 0.8. Magnesium level I.5. Troponins 0.016, 0.015, 0.013. BNP level 3790. TSH level I.6. Patient was initiated on IV Cardizem in the emergency room. His home medications prior to admission included omeprazole 20 mg daily, metoprolol 12-1/2 twice a day, Zestril 5 mg daily, Plavix 75 mg daily , Lipitor 80 mg daily, aspirin 81 mg daily, and Eliquis 2-1/2 mg one tablet by mouth twice a day. Patient given a dose of Lovenox in the emergency room. His Eliquis was not resumed. At the time of my examination, patient was quite short of breath, continues to be in A. fib heart rate in the 120 range. Past Medical History Past Medical History: Atrial Fibrillation, GERD/Reflux, GI Bleed, Hypertension Additional Past Medical History / Comment(s): Upper GI bleed, diverticular dx. SHORTNESS OF BREATH History of Any Multi-Drug Resistant Organisms: None Reported Past Surgical History: Appendectomy, Heart Catheterization With Stent Additional Past Surgical History / Comment(s): colonoscopy, EGD Past Anesthesia/Blood Transfusion Reactions: No Reported Reaction Date of Last Stent Placement:: january 2018 Past Psychological History: No Psychological Hx Reported Smoking Status: Former smoker Past Alcohol Use History: Occasional Past Drug Use History: None Reported - Past Family History Father Family Medical History: Congestive Heart Failure (CHF) Additional Family Medical History / Comment(s): Father of CHF at the age of 68yrs. Mother Family Medical History: No Reported History Additional Family Medical History / Comment(s): Mother at the age of 62 or 63 yrs from myasthenia gravis. Medications and Allergies Home Medications Medication Instructions Recorded Confirmed Type Multivitamin [Men's Multi-Vitamin] 1 tab PO DAILY 01/22/14 04/14/18 History Fish Oil/Dha/Epa [Fish Oil 1,200 1 cap PO DAILY 11/06/17 04/14/18 History mg Fish Oil] Lisinopril [Zestril] 5 mg PO DAILY 11/28/17 04/14/18 History Mv-Min/Vit C/Glut/Lysine/Hb124 1 tab PO DAILY 01/22/18 04/14/18 History [Airborne Effervescent Tablet] Aspirin [Adult Low Dose Aspirin EC] 81 mg PO DAILY #30 tablet. 01/24/18 Rx Atorvastatin [Lipitor] 80 mg PO HS #90 tab 01/24/18 04/14/18 Rx Nitroglycerin Sl Tabs [Nitrostat] 0.4 mg SUBLINGUAL Q5M PRN #25 tab 01/24/1801/25 Rx Citalopram Hydrobromide [CeleXA] 20 mg PO DAILY 04/14/18 04/14/18 History Clopidogrel [Plavix] 75 mg PO DAILY 04/14/18 04/14/18 History Glycopyrrolate/Formoterol Fum 1 puff INHALATION RT-BID 04/14/18 04/14/18 History [Bevespi Aerosphere Inhaler] Metoprolol Tartrate [Lopressor] 12.5 mg PO BID 04/14/18 04/14/18 History Omeprazole 20 mg PO DAILY 04/14/18 04/14/18 History Allergies Allergy/AdvReac Type Severity Reaction Status Date / Time Penicillins Allergy Unknown Verified 04/14/18 11:27 Childhood Physical Exam Vitals: Vital Signs Temp Pulse Pulse Resp BP BP BP 04/15/18 04:00 98.4 F 119 H 18 96/67 04/15/18 00:00 108 H 18 101/66 04/14/18 20:00 96.9 F L 104 H 18 118/86 04/14/18 16:54 105 H 18 147/69 04/14/18 14:20 97 16 129/62 04/14/18 13:39 98.3 F 114 H 16 114/81 04/14/18 11:58 99 16 147/90 04/14/18 10:58 111 H 16 123/86 04/14/18 08:08 113 H 16 151/88 04/14/18 08:04 122 H 20 117/80 Pulse Ox 04/15/18 04:00 96 04/15/18 00:00 97 04/14/18 20:00 96 04/14/18 16:54 96 04/14/18 14:20 95 04/14/18 13:39 95 04/14/18 11:58 96 04/14/18 10:58 96 04/14/18 08:08 96 04/14/18 08:04 95 Intake and Output 04/14/18 04/15/18 04/15/18 22:59 06:59 14:59 Intake Total 240 Output Total 2000 Balance 240 -2000 Intake: Oral 240 Output: Urine 1999 Other: Voiding Method Toilet Toilet Urinal Urinal Weight 113.4 kg PHYSICAL EXAMINATION: GENERAL: 52-year-old gentleman quite short of breath at the time of my examination. HEENT: Head is atraumatic, normocephalic. Pupils equal, round. Sclera anicteric. Conjunctiva are clear. Mucous membranes of the mouth are moist. Neck is supple. There is no elevated jugular venous pressure. No carotid bruit is heard. HEART EXAMINATION: Heart S1 and S2 irregularly irregular CHEST EXAMINATION:'s reveal rales to bilateral bases with diminished air entry to the bases. ABDOMEN: Soft, nontender. Bowel sounds are heard. No organomegaly noted. EXTREMITIES: 2+ peripheral pulses with trace no evidence of peripheral edema and no calf tenderness noted. NEUROLOGIC patient is awake, alert and oriented ?-3. . Results 04/14/18 05:40 04/15/18 05:40 Cardiac Enzymes 04/14/18 04/14/18 Range/Units 11:42 17:17 CK-MB (CK-2) 2.2 1.7 (0.0-2.4) ng/mL Troponin I 0.015 0.013 (0.000-0.034) ng/mL Lipids 04/15/18 Range/Units 05:40 Triglycerides 100 (<150) mg/dL Cholesterol 115 (<200) mg/dL HDL Cholesterol 44 (40-60) mg/dL Comprehensive Metabolic Panel 04/15/18 Range/Units 05:40 Sodium 139 (137-145) mmol/L Potassium 4.1 (3.5-5.1) mmol/L Chloride 105 (98-107) mmol/L Carbon Dioxide 26 (22-30) mmol/L BUN 17 (9-20) mg/dL Creatinine 0.70 (0.66-1.25) mg/dL Glucose 105 H (74-99) mg/dL Calcium 9.2 (8.4-10.2) mg/dL Current Medications Generic Name Dose Route Start Last Admin Trade Name Freq PRN Reason Stop Dose Admin Atorvastatin Calcium 80 mg 04/14/18 21:00 04/14/18 21:25 Lipitor PO 80 mg HS SAMANTHA Administration Citalopram Hydrobromide 20 mg 04/15/18 09:00 Celexa PO DAILY SAMANTHA Clopidogrel Bisulfate 75 mg 04/15/18 09:00 Plavix PO DAILY [facility] Furosemide 20 mg 04/14/18 13:30 04/14/18 21:25 Lasix IV 20 mg Q12HR SAMANTHA Administration Lisinopril 5 mg 04/14/18 21:00 04/14/18 21:25 Zestril PO 5 mg HS SAMANTHA Administration Metoprolol Tartrate 50 mg 04/14/18 21:00 04/14/18 21:25 Lopressor PO 50 mg BID SAMANTHA Administration Multivitamins 1 each 04/14/18 12:00 04/14/18 09:09 Theragran PO 1 each DAILY@1200 [facility] Administration Nitroglycerin 0.4 mg 04/14/18 13:00 Nitrostat SUBLINGUAL Q5M PRN Chest Pain Pantoprazole Sodium 40 mg 04/15/18 07:30 04/15/18 06:07 Protonix PO 40 mg AC-[id number] SAMANTHA Administration Intake and Output 04/14/18 04/15/18 04/15/18 22:59 06:59 14:59 Intake Total 240 Output Total 1999 Balance 240 -1999 Intake: Oral 240 Output: Urine 1999 Other: Voiding Method Toilet Toilet Urinal Urinal Weight 113.4 kg 04/14/18 05:40 04/15/18 05:40 EKG Interpretations (text) EKG shows atrial fibrillation with a rapid ventricular response Assessment and Plan Plan: Assessment and plan #1 atrial fibrillation with rapid ventricular response, patient has known history of paroxysmal atrial fibrillation with prior cardioversion , on Eliquis 2-1/2 mg one tablet by mouth twice a day for anticoagulation. #2 congestive heart failure, likely diastolic in nature, patient has been documented to have a normal LV function in the past. #3 known history of coronary artery disease with recent orbital arthrectomy and stenting of the RCA in January of this year #4 hypertension #5 hyperlipidemia #6 nicotine dependence Plan Will obtain an echocardiogram with Doppler study. We will also give the patient an extra dose of metoprolol and increase his metoprolol to 50 mg one tablet by mouth twice a day. Discontinue IV Cardizem drip. We will discontinue the aspirin, discontinue Eliquis, from tomorrow we will start the patient on xarelto 15 mg daily along with Plavix. Lovenox has been discontinued. We'll also give the patient one time dose of IV Lasix and start him on 20 mg of IV Lasix twice a day. Further recommendations to follow. DNP note has been reviewed, I agree with a documented findings and plan of care. Patient was seen and examined.
--- NOTE | 2018-04-15 08:08 | P.PN ---
Subjective Progress Note Date: 04/15/18 Principal diagnosis: Recurrent atrial fibrillation with rapid ventricular response. This 52-year-old white male with approximately 2 fibrillation who had episodes of the last week until he was not able to do his activities of daily living. He tried to play golf the day before he was admitted her and now he has recurrent atrial fibrillation. Known history of CAD in the past. Dyspnea on exertion is noted. He came in with ulnar congestive heart failure related rhythm. No significant fever or chills stated. He is now a nonsmoker. Objective - Vital Signs Vital signs: Vital Signs Temp 98.4 F 04/15/18 04:00 Pulse 119 H 04/15/18 04:00 Resp 18 04/15/18 04:00 BP 96/67 04/15/18 04:00 Pulse Ox 96 04/15/18 04:00 Intake & Output 04/14/18 04/15/18 04/15/18 18:59 06:59 18:59 Intake Total 265.167 236 Output Total 1999 Balance 265.167 -1999 236 Weight 113.4 kg Intake: Intake, IV Titration 25.167 Amount Diltiazem 50 mg In Sodium 25.167 Chloride 0.9% 40 ml @ Per Protocol IV .Q0M [facility] Rx#:[id number] Oral 240 236 Output: Urine 1999 Other: Voiding Method Toilet Urinal - Constitutional General appearance: Present: average body habitus - EENT Eyes: Absent: abnormal pupil - Respiratory Respiratory: bilateral: diminished - Cardiovascular Rhythm: irregularly irregular Heart sounds: normal: S1, S2 Abnormal Heart Sounds: Absent: S3 Gallop - Gastrointestinal General gastrointestinal: Present: soft. Absent: tenderness - Integumentary Integumentary: Absent: cyanotic - Neurologic Neurologic: Present: CNII-XII intact - Labs CBC & Chem 7: 04/14/18 05:40 04/15/18 05:40 Labs: Abnormal Lab Results - Last 24 Hours (Table) 04/14/18 04/14/18 04/15/18 Range/Units 11:42 17:17 05:40 Glucose 105 H (74-99) mg/dL Total Creatine Kinase 189 H 182 H (55-170) U/L Assessment and Plan (1) Former smoker Current Visit: Yes Status: Acute Code(s): Z87.891 - PERSONAL HISTORY OF NICOTINE DEPENDENCE SNOMED Code(s): 6106765 (2) CAD (coronary artery disease) Current Visit: Yes Status: Acute Code(s): I25.10 - ATHSCL HEART DISEASE OF [place] CORONARY ARTERY W/O ANG PCTRS SNOMED Code(s): 61045812 (3) Atrial fibrillation with RVR Current Visit: Yes Status: Acute Code(s): I48.91 - UNSPECIFIED ATRIAL FIBRILLATION SNOMED Code(s): 711057650018223 (4) CHF (congestive heart failure) Current Visit: Yes Status: Acute Code(s): I50.9 - HEART FAILURE, UNSPECIFIED SNOMED Code(s): 74186798 (5) Hypertension Current Visit: No Status: Acute Code(s): I10 - ESSENTIAL (PRIMARY) HYPERTENSION SNOMED Code(s): 20272472 Plan: Cardiology has been consulted. The patient has been transitioned to metoprolol and dose titrated. Anticoagulation was Xarelto on Plavix started. Reconcile medications. We'll continue to follow. Time with Patient: Greater than 30
[2018-04-15] MEDS ORDERED: ASPIRIN 325 MG TAB PO SCH (09:00)
[2018-04-15] MEDS: CLOPIDOGREL 75 MG TAB PO SCH (09:14)
[2018-04-15] MEDS: CITALOPRAM HYDROBROMIDE 20 MG TAB PO SCH (09:15)
[2018-04-15] MEDS: FUROSEMIDE 10 MG/ML 2 ML VIAL IV SCH ×2 (09:15→19:45)
[2018-04-15] MEDS: MULTIVITAMINS, THERA 1 EACH TAB PO SCH (09:15)
[2018-04-15] MEDS: METOPROLOL TARTRATE 50 MG TAB PO SCH ×2 (09:15→18:23)
--- NOTE | 2018-04-15 10:52 | ECHOF ---
Referral Reason:afib MEASUREMENTS -------- HEIGHT: 182.9 cm WEIGHT: 113.4 kg BP: 101/66 RVIDd: 3.8 cm (< 3.3) IVSd: 1.0 cm (0.6 - 1.1) LVIDd: 5.3 cm (3.9 - 5.3) LVPWd: 1.1 cm (0.6 - 1.1) IVSs: 1.7 cm LVIDs: 3.5 cm LVPWs: 1.8 cm LA Diam: 3.7 cm (2.7 - 3.8) LAESV Index (A-L): 55.14 ml/m Ao Diam: 4.1 cm (2.0 - 3.7) AV Cusp: 2.8 cm (1.5 - 2.6) MV EXCURSION: 20.130 mm (> 18.000) MV EF SLOPE: 65 mm/s (70 - 150) EPSS: 1.1 cm FINDINGS -------- Atrial fibrillation. This was a technically adequate study. The left ventricular size is normal. There is borderline concentric left ventricular hypertrophy. Overall left ventricular systolic function is normal with, an EF between 55 - 60 %. The right ventricle is mildly enlarged. LA is severely dilated >40 ml/m2 The right atrium is normal in size. There is mild aortic valve sclerosis. Mild mitral annular calcification present. Moderate mitral regurgitation is present. The tricuspid valve appears structurally normal. The pulmonic valve was not well visualized. The aortic root is dilated measuring 4.1cm. Normal inferior vena cava with normal inspiratory collapse consistent with estimated right atrial pre ssure of 5 mmHg. There is no pericardial effusion. CONCLUSIONS -------- 1. Atrial fibrillation. 2. This was a technically adequate study. 3. The left ventricular size is normal. 4. There is borderline concentric left ventricular hypertrophy. 5. Overall left ventricular systolic function is normal with, an EF between 55 - 60 %. 6. The right ventricle is mildly enlarged. 7. LA is severely dilated >40 ml/m2 8. The right atrium is normal in size. 9. There is mild aortic valve sclerosis. 10. Mild mitral annular calcification present. 11. Moderate mitral regurgitation is present. 12. The tricuspid valve appears structurally normal. 13. The pulmonic valve was not well visualized. 14. The aortic root is dilated measuring 4.1cm. 15. Normal inferior vena cava with normal inspiratory collapse consistent with estimated right atrial pressure of 5 mmHg. 16. There is no pericardial effusion. TRAY DRIER OPERATOR: Kay Ellison RDCS
--- NOTE | 2018-04-15 14:33 | P.PN ---
Subjective Progress Note Date: 04/15/18 This is a 52-year-old gentleman with history of hypertension, nicotine abuse, he may choose a history of premature coronary artery disease, hyperlipidemia, follows with Dr. Anu Valles in the office, he also has a known history of coronary artery disease and in January of this year underwent orbital arthrectomy of the proximal RCA with subsequent PTCA and stenting of that vessel. He presents to the hospital on this occasion with symptoms of shortness of breath, which has been progressively worsening over the past few days. Positive PND and orthopnea, positive palpitations. EKG on arrival here showed atrial fibrillation with a rapid ventricular response. Chest x-ray revealed evidence of new congestive heart failure as compared with old exam. Pneumonia was also documented to be possible in the lower lobes. White blood cell count 11.2, hemoglobin 12.8, platelet count 211. Sodium 142, potassium 4.3 , BUN 18, creatinine 0.8. Magnesium level I.5. Troponins 0.016, 0.015, 0.013. BNP level 3790. TSH level I.6. Patient was initiated on IV Cardizem in the emergency room. His home medications prior to admission included omeprazole 20 mg daily, metoprolol 12-1/2 twice a day, Zestril 5 mg daily, Plavix 75 mg daily , Lipitor 80 mg daily, aspirin 81 mg daily, and Eliquis 2-1/2 mg one tablet by mouth twice a day. Patient given a dose of Lovenox in the emergency room. His Eliquis was not resumed. At the time of my examination, patient was quite short of breath, continues to be in A. fib heart rate in the 120 range. 04/15/2018 Patient seen and examined this morning, states his breathing is somewhat improved, still continues to be mildly short of breath, he does have bilateral rales heard to the bases. Blood pressure 105/60 with a heart rate in the mid 90s to low 100s. 96% on 4 L of oxygen. Odium 139, potassium 4.1, BUN 17, creatinine 0.7, magnesium 1.9. Echo cardiogram with Doppler study was performed which revealed an ejection fraction of 55-60%. Objective - Vital Signs Vital signs: Vital Signs Temp 97.6 F 04/15/18 08:00 Pulse 105 H 08/06/18 08:00 Resp 18 04/15/18 04:00 BP 105/62 04/15/18 08:00 Pulse Ox 96 04/15/18 08:00 Intake & Output 04/14/18 04/15/18 04/15/18 18:59 06:59 18:59 Intake Total 265.167 472 Output Total 1999 850 Balance 265167 -1999378 Weight 113.4 kg Intake: Intake, IV Titration 25.167 Amount Diltiazem 50 mg In Sodium 25.167 Chloride 0.9% 40 ml @ Per Protocol IV .Q0M [facility] Rx#:[id number] Oral 240 472 Output: Urine 1999 Other: Voiding Method Toilet Urinal - Exam PHYSICAL EXAMINATION: GENERAL: 52-year-old gentleman quite short of breath at the time of my examination. HEENT: Head is atraumatic, normocephalic. Pupils equal, round. Sclera anicteric. Conjunctiva are clear. Mucous membranes of the mouth are moist. Neck is supple. There is no elevated jugular venous pressure. No carotid bruit is heard. HEART EXAMINATION: Heart S1 and S2 irregularly irregular CHEST EXAMINATION:'s reveal rales to bilateral bases with diminished air entry to the bases. ABDOMEN: Soft, nontender. Bowel sounds are heard. No organomegaly noted. EXTREMITIES: 2+ peripheral pulses with trace no evidence of peripheral edema and no calf tenderness noted. NEUROLOGIC patient is awake, alert and oriented ?-3. . - Labs CBC & Chem 7: 04/14/18 05:40 04/15/18 05:40 Labs: Abnormal Lab Results - Last 24 Hours (Table) 04/14/18 04/15/18 Range/Units 17:17 05:40 Glucose 105 H (74-99) mg/dL Total Creatine Kinase 182 H (55-170) U/L Assessment and Plan Plan: Assessment and plan #1 atrial fibrillation with rapid ventricular response, patient has known history of paroxysmal atrial fibrillation with prior cardioversion , on Eliquis 2-1/2 mg one tablet by mouth twice a day for anticoagulation. #2 congestive heart failure, diastolic, acute on chronic #3 known history of coronary artery disease with recent orbital arthrectomy and stenting of the RCA in January of this year #4 hypertension #5 hyperlipidemia #6 nicotine dependence Plan We'll continue the patient on current dose of IV Lasix. Eliquis has been discontinued, we will start the patient on xarelto 15 mg daily today and continue along with Plavix 75 mg daily. Discontinue aspirin. DNP note has been reviewed, I agree with a documented findings and plan of care. Patient was seen and examined.
[2018-04-15] MEDS: RIVAROXABAN 15 MG TAB PO SCH (18:23)
[2018-04-15] MEDS: LISINOPRIL 5 MG TAB PO SCH (19:45)
[2018-04-15] MEDS: ATORVASTATIN 80 MG TAB PO SCH (19:45)
[2018-04-15] MEDS ORDERED: traMADol 50 MG TAB PO PRN (23:48)
[2018-04-16 06:24] LABS: HCT 43.8 % (39.0-53.0); MCH 28.3 pg (25.0-35.0); MCHC 31.9 g/dL (31.0-37.0); MCV 88.7 fL (80.0-100.0); Mean Platelet Volume 8.6; Platelet Count 204 k/uL (150-450); RBC 4.93 m/uL (4.30-5.90); RDW 13.6 % (11.5-15.5)
[2018-04-16] MEDS: PANTOPRAZOLE 40 MG TABLET PO SCH (06:30)
[2018-04-16 06:54] LABS: ALT 48 U/L (21-72); AST 24 U/L (17-59); Albumin 3.9 g/dL (3.5-5.0); Alkaline Phosphatase 91 U/L (38-126); Anion Gap 7 mmol/L; Blood Urea Nitrogen 17 mg/dL (9-20); Calcium 9.3 mg/dL (8.4-10.2); Carbon Dioxide 29 mmol/L (22-30); Chloride 103 mmol/L (98-107); Glucose 105 mg/dL (74-99); Potassium 4.4 mmol/L (3.5-5.1); Sodium 139 mmol/L (137-145); Total Bilirubin 1.4 mg/dL (0.2-1.3); Total Protein 6.5 g/dL (6.3-8.2)
--- NOTE | 2018-04-16 06:54 | P.PN ---
Subjective Principal diagnosis: Recurrent atrial fibrillation with rapid ventricular response. This a continue present 63-year-old white male essentially admitted for atrial fibrillation with rapid ventricular response. Element of diastolic congestive heart failure was noted secondary to the rhythm. Otherwise no significant new complaints this morning. He seems to be breathing a little bit easier. However , minimal ambulation is stated. Sleep study show significant sleep apnea. Objective - Vital Signs Vital signs: Vital Signs Temp 98.5 F 04/16/18 03:09 Pulse 98 04/16/18 03:12 Resp 18 04/16/18 03:12 BP 102/62 04/16/18 03:09 Pulse Ox 94 L 04/16/18 03:09 Intake & Output 04/15/18 04/15/18 04/16/18 06:59 18:59 06:59 Intake Total 712 650 Output Total 1999 1450 1900 Balance -1999 -372 -1270 Weight 113.4 kg 109.8 kg Intake: Oral 712 650 Output: Urine 1999 1449 1900 Other: Voiding Method Toilet Toilet Urinal Urinal # Voids 2 - Constitutional General appearance: Present: average body habitus - EENT Eyes: Absent: abnormal pupil - Respiratory Respiratory: bilateral: CTA - Cardiovascular Rhythm: irregularly irregular Abnormal Heart Sounds: Absent: S3 Gallop - Gastrointestinal General gastrointestinal: Present: soft. Absent: tenderness - Psychiatric Psychiatric: Present: A&O x's 3 - Labs CBC & Chem 7: 04/16/18 06:04 04/15/18 05:40 Assessment and Plan (1) Former smoker Current Visit: Yes Status: Acute Code(s): Z87.891 - PERSONAL HISTORY OF NICOTINE DEPENDENCE SNOMED Code(s): 2789102 (2) CAD (coronary artery disease) Current Visit: Yes Status: Acute Code(s): I25.10 - ATHSCL HEART DISEASE OF [place] CORONARY ARTERY W/O ANG PCTRS SNOMED Code(s): 38024055 (3) Atrial fibrillation with RVR Current Visit: Yes Status: Acute Code(s): I48.91 - UNSPECIFIED ATRIAL FIBRILLATION SNOMED Code(s): 991985960686472 (4) CHF (congestive heart failure) Current Visit: Yes Status: Acute Code(s): I50.9 - HEART FAILURE, UNSPECIFIED SNOMED Code(s): 07568666 (5) Hypertension Current Visit: No Status: Acute Code(s): I10 - ESSENTIAL (PRIMARY) HYPERTENSION SNOMED Code(s): 14104638 Plan: Agents currently on IV Lasix will continue this per cardiology. Hopefully we can wean off today. Continue anticoagulation. Heart rate seems to be slowing but still has tachycardia intermittently with atrial fibrillation. We'll continue to follow. Anticipate discharge in next 24-40 hours if heart rate stabilizes Time with Patient: Less than 30
[2018-04-16] MEDS: METOPROLOL TARTRATE 50 MG TAB PO SCH ×2 (08:29→20:18)
[2018-04-16] MEDS: CLOPIDOGREL 75 MG TAB PO SCH (08:29)
[2018-04-16] MEDS: CITALOPRAM HYDROBROMIDE 20 MG TAB PO SCH (08:29)
[2018-04-16] MEDS: MULTIVITAMINS, THERA 1 EACH TAB PO SCH (08:29)
[2018-04-16] MEDS: FUROSEMIDE 10 MG/ML 2 ML VIAL IV SCH ×2 (08:29→20:18)
[2018-04-16] MEDS ORDERED: ACETAMINOPHEN TAB 325 MG TAB PO PRN (09:51)
--- NOTE | 2018-04-16 14:06 | P.PN ---
Subjective Progress Note Date: 04/16/18 This is a 52-year-old gentleman with history of hypertension, nicotine abuse, he may choose a history of premature coronary artery disease, hyperlipidemia, follows with Dr. Anu Valles in the office, he also has a known history of coronary artery disease and in January of this year underwent orbital arthrectomy of the proximal RCA with subsequent PTCA and stenting of that vessel. He presents to the hospital on this occasion with symptoms of shortness of breath, which has been progressively worsening over the past few days. Positive PND and orthopnea, positive palpitations. EKG on arrival here showed atrial fibrillation with a rapid ventricular response. Chest x-ray revealed evidence of new congestive heart failure as compared with old exam. Pneumonia was also documented to be possible in the lower lobes. White blood cell count 11.2, hemoglobin 12.8, platelet count 211. Sodium 142, potassium 4.3 , BUN 18, creatinine 0.8. Magnesium level I.5. Troponins 0.016, 0.015, 0.013. BNP level 3790. TSH level I.6. Patient was initiated on IV Cardizem in the emergency room. His home medications prior to admission included omeprazole 20 mg daily, metoprolol 12-1/2 twice a day, Zestril 5 mg daily, Plavix 75 mg daily , Lipitor 80 mg daily, aspirin 81 mg daily, and Eliquis 2-1/2 mg one tablet by mouth twice a day. Patient given a dose of Lovenox in the emergency room. His Eliquis was not resumed. At the time of my examination, patient was quite short of breath, continues to be in A. fib heart rate in the 120 range. 04/15/2018 Patient seen and examined this morning, states his breathing is somewhat improved, still continues to be mildly short of breath, he does have bilateral rales heard to the bases. Blood pressure 105/60 with a heart rate in the mid 90s to low 100s. 96% on 4 L of oxygen. Odium 139, potassium 4.1, BUN 17, creatinine 0.7, magnesium 1.9. Echo cardiogram with Doppler study was performed which revealed an ejection fraction of 55-60%. 04/16/2018 Patien seen and examined this morning, continues to be in atrial fibrillation, heart rate in the 1 teens this morning. He does state that his breathing is somewhat improved, still mildly short of breath. Let pressure 100/60, heart rate in the 1 teens, 96% on room air. White blood cell count 10.0, hemoglobin 14, platelet count 204. Sodium 139, potassium 4.4, BUN 17, creatinine 0.8. Magnesium level I.4. We will replace the patient's potassium, increase metoprolol to 50 mg one tablet by mouth twice a day. Continue current dose of IV Lasix for 24 hours. Objective - Vital Signs Vital signs: Vital Signs Temp 98.2 F 04/16/18 08:00 Pulse 130 H 04/16/18 12:00 Resp 18 04/16/18 12:00 BP 100/67 04/16/18 12:00 Pulse Ox 96 04/16/18 12:00 Intake & Output 04/15/18 04/16/18 04/16/18 18:59 06:59 18:59 Intake Total 712 650 240 Output Total 1450 1900 Balance -738 -1250 240 Weight 109.8 kg Intake: Oral 712 650 240 Output: Urine 1450 1900 Other: Voiding Method Toilet Urinal # Voids 2 1 - Exam PHYSICAL EXAMINATION: GENERAL: 52-year-old gentleman quite short of breath at the time of my examination. HEENT: Head is atraumatic, normocephalic. Pupils equal, round. Sclera anicteric. Conjunctiva are clear. Mucous membranes of the mouth are moist. Neck is supple. There is no elevated jugular venous pressure. No carotid bruit is heard. HEART EXAMINATION: Heart S1 and S2 irregularly irregular CHEST EXAMINATION:'s reveal rales to bilateral bases with diminished air entry to the bases. ABDOMEN: Soft, nontender. Bowel sounds are heard. No organomegaly noted. EXTREMITIES: 2+ peripheral pulses with trace no evidence of peripheral edema and no calf tenderness noted. NEUROLOGIC patient is awake, alert and oriented ?-3. . - Labs CBC & Chem 7: 04/16/18 06:04 04/16/18 06:04 Labs: Abnormal Lab Results - Last 24 Hours (Table) 04/16/18 Range/Units 06:04 Glucose 105 H (74-99) mg/dL Total Bilirubin 1.4 H (0.2-1.3) mg/dL Assessment and Plan Plan: Assessment and plan #1 atrial fibrillation with rapid ventricular response, patient has known history of paroxysmal atrial fibrillation with prior cardioversion , on Eliquis 2-1/2 mg one tablet by mouth twice a day for anticoagulation. #2 congestive heart failure, diastolic, acute on chronic #3 known history of coronary artery disease with recent orbital arthrectomy and stenting of the RCA in January of this year #4 hypertension #5 hyperlipidemia #6 nicotine dependence Plan We'll continue the patient on current dose of IV Lasix. Increase dose of metoprolol tartrate 50 mg one tablet by mouth twice a day. Repeat chest x-ray tomorrow. DNP note has been reviewed, I agree with a documented findings and plan of care. Patient was seen and examined.
[2018-04-16] MEDS: MAGNESIUM SULFATE-D5W PMX 1 GM in DEXTROSE/WATER 1 100ML.BAG IVPB SCH ×2 (16:27→18:26)
[2018-04-16] MEDS: RIVAROXABAN 15 MG TAB PO SCH (16:29)
[2018-04-16] MEDS: ATORVASTATIN 80 MG TAB PO SCH (20:18)
[2018-04-16] MEDS: LISINOPRIL 5 MG TAB PO SCH (20:49)
[2018-04-17] MEDS: PANTOPRAZOLE 40 MG TABLET PO SCH (06:37)
--- NOTE | 2018-04-17 09:07 | P.PN ---
Subjective Principal diagnosis: Recurrent atrial fibrillation with rapid ventricular response. This a continue present 63-year-old white male essentially admitted for atrial fibrillation with rapid ventricular response. Element of diastolic congestive heart failure was noted secondary to the rhythm. Otherwise no significant new complaints this morning. He seems to be breathing a little bit easier. However , minimal ambulation is stated. Sleep study show significant sleep apnea. Objective - Vital Signs Vital signs: Vital Signs Temp 96.6 F L 04/17/18 04:00 Pulse 105 H 04/17/18 04:00 Resp 16 04/17/18 04:00 BP 110/68 04/17/18 04:00 Pulse Ox 95 04/17/18 04:00 Intake & Output 04/16/18 04/17/18 04/17/18 18:59 06:59 18:59 Intake Total 720 240 Output Total 260 400 Balance 720 -260 -160 Weight 108.6 kg Intake: Oral 720 240 Output: Urine 260 400 Other: Voiding Method Toilet Urinal # Voids 1 1 - Constitutional General appearance: Present: average body habitus - EENT Eyes: Absent: abnormal pupil, anicteric sclerae - Neck Neck: Absent: lymphadenopathy - Respiratory Respiratory: bilateral: CTA - Cardiovascular Rhythm: irregularly irregular Heart sounds: normal: S1, S2 Abnormal Heart Sounds: Absent: S3 Gallop - Gastrointestinal General gastrointestinal: Present: soft. Absent: tenderness - Psychiatric Psychiatric: Present: A&O x's 3 - Labs CBC & Chem 7: 04/16/18 06:04 04/16/18 06:04 Assessment and Plan (1) Former smoker Current Visit: Yes Status: Acute Code(s): Z87.891 - PERSONAL HISTORY OF NICOTINE DEPENDENCE SNOMED Code(s): 3432480 (2) CAD (coronary artery disease) Current Visit: Yes Status: Acute Code(s): I25.10 - ATHSCL HEART DISEASE OF [place] CORONARY ARTERY W/O ANG PCTRS SNOMED Code(s): 70666148 (3) Atrial fibrillation with RVR Current Visit: Yes Status: Acute Code(s): I48.91 - UNSPECIFIED ATRIAL FIBRILLATION SNOMED Code(s): 968770440624673 (4) CHF (congestive heart failure) Current Visit: Yes Status: Acute Code(s): I50.9 - HEART FAILURE, UNSPECIFIED SNOMED Code(s): 83448121 (5) Hypertension Current Visit: No Status: Acute Code(s): I10 - ESSENTIAL (PRIMARY) HYPERTENSION SNOMED Code(s): 83560763 Plan: The patient is clinically improved but his heart rate still seems to be somewhat elevated. We'll continue to follow with cardiology. Hopefully wean off of IV Lasix today. Anticipate discharge in next 24-48 hours.
[2018-04-17] MEDS: METOPROLOL TARTRATE 50 MG TAB PO SCH ×4 (09:10→23:43)
[2018-04-17] MEDS: CLOPIDOGREL 75 MG TAB PO SCH (09:10)
[2018-04-17] MEDS: MULTIVITAMINS, THERA 1 EACH TAB PO SCH (09:10)
[2018-04-17] MEDS: CITALOPRAM HYDROBROMIDE 20 MG TAB PO SCH (09:10)
[2018-04-17] MEDS: FUROSEMIDE 10 MG/ML 2 ML VIAL IV SCH (09:11)
--- NOTE | 2018-04-17 15:24 | P.PN ---
Subjective Progress Note Date: 04/17/18 This is a 52-year-old gentleman with history of hypertension, nicotine abuse, he may choose a history of premature coronary artery disease, hyperlipidemia, follows with Dr. Anu Valles in the office, he also has a known history of coronary artery disease and in January of this year underwent orbital arthrectomy of the proximal RCA with subsequent PTCA and stenting of that vessel. He presents to the hospital on this occasion with symptoms of shortness of breath, which has been progressively worsening over the past few days. Positive PND and orthopnea, positive palpitations. EKG on arrival here showed atrial fibrillation with a rapid ventricular response. Chest x-ray revealed evidence of new congestive heart failure as compared with old exam. Pneumonia was also documented to be possible in the lower lobes. White blood cell count 11.2, hemoglobin 12.8, platelet count 211. Sodium 142, potassium 4.3 , BUN 18, creatinine 0.8. Magnesium level I.5. Troponins 0.016, 0.015, 0.013. BNP level 3790. TSH level I.6. Patient was initiated on IV Cardizem in the emergency room. His home medications prior to admission included omeprazole 20 mg daily, metoprolol 12-1/2 twice a day, Zestril 5 mg daily, Plavix 75 mg daily , Lipitor 80 mg daily, aspirin 81 mg daily, and Eliquis 2-1/2 mg one tablet by mouth twice a day. Patient given a dose of Lovenox in the emergency room. His Eliquis was not resumed. At the time of my examination, patient was quite short of breath, continues to be in A. fib heart rate in the 120 range. 04/15/2018 Patient seen and examined this morning, states his breathing is somewhat improved, still continues to be mildly short of breath, he does have bilateral rales heard to the bases. Blood pressure 105/60 with a heart rate in the mid 90s to low 100s. 96% on 4 L of oxygen. Odium 139, potassium 4.1, BUN 17, creatinine 0.7, magnesium 1.9. Echo cardiogram with Doppler study was performed which revealed an ejection fraction of 55-60%. 04/16/2018 Patien seen and examined this morning, continues to be in atrial fibrillation, heart rate in the 1 teens this morning. He does state that his breathing is somewhat improved, still mildly short of breath. Let pressure 100/60, heart rate in the 1 teens, 96% on room air. White blood cell count 10.0, hemoglobin 14, platelet count 204. Sodium 139, potassium 4.4, BUN 17, creatinine 0.8. Magnesium level I.4. We will replace the patient's potassium, increase metoprolol to 50 mg one tablet by mouth twice a day. Continue current dose of IV Lasix for 24 hours. 04/17/2018 Patient seen and examined this morning, breathing much more stable. Diuresed well again through the night last night, weight is down 1 kg today. BUN 17, creatinine 0.8, blood pressure 110/68, heart rate in the 120 range. We will increase the dose of beta laura to 50 mg every 6 hourly, discontinue IV Lasix and exchange administrator to oral diuretics today. Objective - Vital Signs Vital signs: Vital Signs Temp 96.6 F L 04/17/18 04:00 Pulse 105 H 04/17/18 04:00 Resp 16 04/17/18 04:00 BP 110/68 04/17/18 04:00 Pulse Ox 95 04/17/18 04:00 Intake & Output 04/16/18 04/17/18 04/17/18 18:59 06:59 18:59 Intake Total 720 480 Output Total 260 2400 Balance 720 -260 -1920 Weight 108.6 kg Intake: Oral 720 480 Output: Urine 260 2400 Other: Voiding Method Toilet Urinal # Voids 1 1 - Exam PHYSICAL EXAMINATION: GENERAL: 52-year-old gentleman quite short of breath at the time of my examination. HEENT: Head is atraumatic, normocephalic. Pupils equal, round. Sclera anicteric. Conjunctiva are clear. Mucous membranes of the mouth are moist. Neck is supple. There is no elevated jugular venous pressure. No carotid bruit is heard. HEART EXAMINATION: Heart S1 and S2 irregularly irregular CHEST EXAMINATION:'s reveal rales to bilateral bases with diminished air entry to the bases. ABDOMEN: Soft, nontender. Bowel sounds are heard. No organomegaly noted. EXTREMITIES: 2+ peripheral pulses with trace no evidence of peripheral edema and no calf tenderness noted. NEUROLOGIC patient is awake, alert and oriented ?-3. . - Labs CBC & Chem 7: 04/16/18 06:04 04/16/18 06:04 Assessment and Plan Plan: Assessment and plan #1 atrial fibrillation with rapid ventricular response, patient has known history of paroxysmal atrial fibrillation with prior cardioversion , on Eliquis 2-1/2 mg one tablet by mouth twice a day for anticoagulation. #2 congestive heart failure, diastolic, acute on chronic #3 known history of coronary artery disease with recent orbital arthrectomy and stenting of the RCA in January of this year #4 hypertension #5 hyperlipidemia #6 nicotine dependence Plan Cardiology's perspective, we'll discontinue IV Lasix and exchange administrator to oral diuretics today. Increase dose of beta laura to 50 mg every 6 hourly. Plan for possible discharge home in the morning if stable. DNP note has been reviewed, I agree with a documented findings and plan of care. Patient was seen and examined.
[2018-04-17 16:43] LABS: Glucose,Whole Blood 141 mg/dL (75-99)
[2018-04-17] MEDS: RIVAROXABAN 15 MG TAB PO SCH (16:58)
[2018-04-17] MEDS: FUROSEMIDE 20 MG TAB PO SCH (17:00)
[2018-04-17] MEDS: LISINOPRIL 5 MG TAB PO SCH (20:00)
[2018-04-17] MEDS: ATORVASTATIN 80 MG TAB PO SCH (20:01)
[2018-04-18] MEDS: METOPROLOL TARTRATE 50 MG TAB PO SCH ×2 (04:20→09:33)
[2018-04-18] MEDS: PANTOPRAZOLE 40 MG TABLET PO SCH (05:51)
--- NOTE | 2018-04-18 07:37 | P.DS ---
Providers Date of admission: 04/14/18 06:40 Expected date of discharge: 04/18/18 Attending physician: Chandler Valderrama Consults: 04/14/18 06:38 Consult Physician Routine Consulting Provider: Michael Jean-Baptiste Consult Reason/Comments: Atrial fibrillation rapid ventricular rate Do you want consulting provider notified?: Yes Primary care physician: Chandler Valderrama - Discharge Diagnosis(es) (1) Former smoker Current Visit: Yes Status: Acute (2) CAD (coronary artery disease) Current Visit: Yes Status: Acute (3) Atrial fibrillation with RVR Current Visit: Yes Status: Acute (4) CHF (congestive heart failure) Current Visit: Yes Status: Acute (5) Hypertension Current Visit: No Status: Acute Hospital Course: This is a discharge summary on a 53-year-old white male with headache history of proximal atrial fibrillation came in with atrial fibrillation with rapid response. The patient was stabilized with appropriate medical treatment and is discharged in stable condition to follow-up with me in about 4-5 days. Patient Condition at Discharge: Serious Plan - Discharge Summary Discharge Rx Participant: No New Discharge Prescriptions: New Furosemide [Lasix] 20 mg PO BID@0900,1600 #60 tab Metoprolol Tartrate [Lopressor] 50 mg PO Q6H #120 tab Rivaroxaban [Xarelto] 15 mg PO W/SUPPER #30 tab Continue Multivitamin [Men's Multi-Vitamin] 1 tab PO DAILY Fish Oil/Dha/Epa [Fish Oil 1,200 mg Fish Oil] 1 cap PO DAILY Lisinopril [Zestril] 5 mg PO DAILY Mv-Min/Vit C/Glut/Lysine/Hb124 [Airborne Effervescent Tablet] 1 tab PO DAILY Atorvastatin [Lipitor] 80 mg PO HS #90 tab Nitroglycerin Sl Tabs [Nitrostat] 0.4 mg SUBLINGUAL Q5M PRN #25 tab PRN Reason: Chest Pain Aspirin [Adult Low Dose Aspirin EC] 81 mg PO DAILY #30 tablet. Citalopram Hydrobromide [CeleXA] 20 mg PO DAILY Omeprazole 20 mg PO DAILY Clopidogrel [Plavix] 75 mg PO DAILY Glycopyrrolate/Formoterol Fum [Bevespi Aerosphere Inhaler] 1 puff INHALATION RT-BID Discontinued Metoprolol Tartrate [Lopressor] 12.5 mg PO BID Discharge Medication List Multivitamin [Men's Multi-Vitamin] 1 tab PO DAILY 01/22/14 [History] Fish Oil/Dha/Epa [Fish Oil 1,200 mg Fish Oil] 1 cap PO DAILY 11/06/17 [History] Lisinopril [Zestril] 5 mg PO DAILY 11/28/17 [History] Mv-Min/Vit C/Glut/Lysine/Hb124 [Airborne Effervescent Tablet] 1 tab PO DAILY [History] Aspirin [Adult Low Dose Aspirin EC] 81 mg PO DAILY #30 tablet.dr 01/24/18 [Rx] Atorvastatin [Lipitor] 80 mg PO HS #90 tab 01/24/18 [Rx] Nitroglycerin Sl Tabs [Nitrostat] 0.4 mg SUBLINGUAL Q5M PRN #25 tab 01/24/18 [Rx ] Citalopram Hydrobromide [CeleXA] 20 mg PO DAILY 04/14/18 [History] Clopidogrel [Plavix] 75 mg PO DAILY 04/14/18 [History] Glycopyrrolate/Formoterol Fum [Bevespi Aerosphere Inhaler] 1 puff INHALATION RT- BID 04/14/18 [History] Omeprazole 20 mg PO DAILY 04/14/18 [History] Furosemide [Lasix] 20 mg PO BID@0900,1600 #60 tab 04/18/18 [Rx] Metoprolol Tartrate [Lopressor] 50 mg PO Q6H #120 tab 04/18/18 [Rx] Rivaroxaban [Xarelto] 15 mg PO W/SUPPER #30 tab 04/18/18 [Rx] Follow up Appointment(s)/Referral(s): Lily Valles MD [STAFF PHYSICIAN] - 05/07/18 4:00 pm (Office will call about stress ECHO, most likely will be postponed at this time.) Chandler Valderrama MD [Primary Care Provider] - 04/22/18 2:20 pm (Sunday) Patient Instructions/Handouts: A-fib (Atrial Fibrillation) (DC), Safe Use of Anticoagulants (DC) Activity/Diet/Wound Care/Special Instructions: xarelto
[2018-04-18] MEDS: FUROSEMIDE 20 MG TAB PO SCH (07:55)
[2018-04-18] MEDS: MULTIVITAMINS, THERA 1 EACH TAB PO SCH (07:56)
[2018-04-18] MEDS: CITALOPRAM HYDROBROMIDE 20 MG TAB PO SCH (07:56)
[2018-04-18] MEDS: CLOPIDOGREL 75 MG TAB PO SCH (07:56)
[2018-04-18 09:24] VITALS: BP 122/88; PULSE 88; RESP 14; TEMP 96.9
--- NOTE | 2018-04-18 14:34 | P.PN ---
Subjective Progress Note Date: 04/18/18 This is a 52-year-old gentleman with history of hypertension, nicotine abuse, he may choose a history of premature coronary artery disease, hyperlipidemia, follows with Dr. Anu Valles in the office, he also has a known history of coronary artery disease and in January of this year underwent orbital arthrectomy of the proximal RCA with subsequent PTCA and stenting of that vessel. He presents to the hospital on this occasion with symptoms of shortness of breath, which has been progressively worsening over the past few days. Positive PND and orthopnea, positive palpitations. EKG on arrival here showed atrial fibrillation with a rapid ventricular response. Chest x-ray revealed evidence of new congestive heart failure as compared with old exam. Pneumonia was also documented to be possible in the lower lobes. White blood cell count 11.2, hemoglobin 12.8, platelet count 211. Sodium 142, potassium 4.3 , BUN 18, creatinine 0.8. Magnesium level I.5. Troponins 0.016, 0.015, 0.013. BNP level 3790. TSH level I.6. Patient was initiated on IV Cardizem in the emergency room. His home medications prior to admission included omeprazole 20 mg daily, metoprolol 12-1/2 twice a day, Zestril 5 mg daily, Plavix 75 mg daily , Lipitor 80 mg daily, aspirin 81 mg daily, and Eliquis 2-1/2 mg one tablet by mouth twice a day. Patient given a dose of Lovenox in the emergency room. His Eliquis was not resumed. At the time of my examination, patient was quite short of breath, continues to be in A. fib heart rate in the 120 range. 04/15/2018 Patient seen and examined this morning, states his breathing is somewhat improved, still continues to be mildly short of breath, he does have bilateral rales heard to the bases. Blood pressure 105/60 with a heart rate in the mid 90s to low 100s. 96% on 4 L of oxygen. Odium 139, potassium 4.1, BUN 17, creatinine 0.7, magnesium 1.9. Echo cardiogram with Doppler study was performed which revealed an ejection fraction of 55-60%. 04/16/2018 Patien seen and examined this morning, continues to be in atrial fibrillation, heart rate in the 1 teens this morning. He does state that his breathing is somewhat improved, still mildly short of breath. Let pressure 100/60, heart rate in the 1 teens, 96% on room air. White blood cell count 10.0, hemoglobin 14, platelet count 204. Sodium 139, potassium 4.4, BUN 17, creatinine 0.8. Magnesium level I.4. We will replace the patient's potassium, increase metoprolol to 50 mg one tablet by mouth twice a day. Continue current dose of IV Lasix for 24 hours. 04/17/2018 Patient seen and examined this morning, breathing much more stable. Diuresed well again through the night last night, weight is down 1 kg today. BUN 17, creatinine 0.8, blood pressure 110/68, heart rate in the 120 range. We will increase the dose of beta laura to 50 mg every 6 hourly, discontinue IV Lasix and spinning frame changer to oral diuretics today. 04/18/2018 Patient seen and examined this morning, overall feeling significantly better. Hemodynamically he is stable. His heart rate today is in the 70s to 80s. From cardiology's perspective, he may be able to be discharged home today. We'll change him over to metoprolol succinate 150 mg daily. A follow-up appointment will be made with Dr. Anu Valles in the office post discharge. Objective - Vital Signs Vital signs: Vital Signs Temp 96.9 F L 04/18/18 08:00 Pulse 88 04/18/18 08:00 Resp 14 04/18/18 08:00 BP 122/88 04/18/18 08:00 Pulse Ox 97 04/18/18 08:00 Intake & Output 04/17/18 04/18/18 04/18/18 18:59 06:59 18:59 Intake Total 720 360 Output Total 3300 1000 Balance -2580 -1000 360 Weight 109 kg Intake: Oral 720 360 Output: Urine 3300 1000 Other: Voiding Method Toilet Toilet Toilet Urinal Urinal Urinal # Voids 2 - Exam PHYSICAL EXAMINATION: GENERAL: 52-year-old gentleman quite short of breath at the time of my examination. HEENT: Head is atraumatic, normocephalic. Pupils equal, round. Sclera anicteric. Conjunctiva are clear. Mucous membranes of the mouth are moist. Neck is supple. There is no elevated jugular venous pressure. No carotid bruit is heard. HEART EXAMINATION: Heart S1 and S2 irregularly irregular CHEST EXAMINATION:'s reveal rales to bilateral bases with diminished air entry to the bases. ABDOMEN: Soft, nontender. Bowel sounds are heard. No organomegaly noted. EXTREMITIES: 2+ peripheral pulses with trace no evidence of peripheral edema and no calf tenderness noted. NEUROLOGIC patient is awake, alert and oriented ?-3. . - Labs CBC & Chem 7: 04/16/18 06:04 04/16/18 06:04 Labs: Abnormal Lab Results - Last 24 Hours (Table) 04/17/18 Range/Units 16:23 POC Glucose (mg/dL) 141 H (75-99) mg/dL Assessment and Plan Plan: Assessment and plan #1 atrial fibrillation with rapid ventricular response, patient has known history of paroxysmal atrial fibrillation with prior cardioversion , on Eliquis 2-1/2 mg one tablet by mouth twice a day for anticoagulation. #2 congestive heart failure, diastolic, acute on chronic #3 known history of coronary artery disease with recent orbital arthrectomy and stenting of the RCA in January of this year #4 hypertension #5 hyperlipidemia #6 nicotine dependence Plan Cardiology's perspective, patient may be able to be discharged home today. We will discontinue the metoprolol tartrate and start the patient on metoprolol sesame 150 mg daily, follow-up appointment will be made with Dr. Anu Valles in the office post discharge. DNP note has been reviewed, I agree with a documented findings and plan of care. Patient was seen and examined.
== END 2018-04-18 10:07 | disposition home or self-care (01) | DRG 291 ==
LOC: EC 05:24 → 6SEL 06:40
PROVIDERS: ADMIT Family Medicine; ATTEND Family Medicine
DX: I11.0 Hypertensive heart disease with heart failure (principal); K57.91 Diverticulosis of intestine, part unspecified, without perforation or abscess with bleeding; I42.9 Cardiomyopathy, unspecified; I48.0 Paroxysmal atrial fibrillation; I50.33 Acute on chronic diastolic (congestive) heart failure; E78.5 Hyperlipidemia, unspecified; G47.30 Sleep apnea, unspecified; I25.10 Atherosclerotic heart disease of native coronary artery without angina pectoris; K21.9 Gastro-esophageal reflux disease without esophagitis; Z79.02 Long term (current) use of antithrombotics/antiplatelets; Z79.82 Long term (current) use of aspirin; Z79.899 Other long term (current) drug therapy; Z95.5 Presence of coronary angioplasty implant and graft; Z88.0 Allergy status to penicillin; Z90.49 Acquired absence of other specified parts of digestive tract; Z87.891 Personal history of nicotine dependence; Z82.49 Family history of ischemic heart disease and other diseases of the circulatory system
CPT/HCPCS: 36415; 71045; 80048; 80053; 80061; 81003; 82550; 82553; 83735; 83880; 84443; 84484; 85025; 85027; 85610; 85730; 93005; 93306; 96365; 96366; 96367; 96372; 96375; 96376; 99291

== ENCOUNTER 2018-05-09 06:26 | Day surgery (SDC) | payer BC ==
[2018-05-08 10:26] VITALS: BMI 33.2
[~2018-05-09 06:26] MED LIST changes: -ALPRAZolam 0.25 MG TAB PO PRN; -ASPIRIN 325 MG TAB PO ONE; +SODIUM CHLORIDE 0.9% 1,000 ML IV SCH; -SODIUM CHLORIDE 0.9% 1,000 ML in EMPTY BAG 1 BAG IV ONE
[2018-05-09] MEDS ORDERED: LACTATED RINGERS 1,000 ML IV SCH (07:19)
[2018-05-09] MEDS ORDERED: SODIUM CHLORIDE 0.9% 500 ML IV ONE (07:20)
[2018-05-09] MEDS ORDERED: PROPOFOL 10 MG/ML 20 ML VIAL IV ONE (07:55)
[2018-05-09 08:07] VITALS: TEMP 97.8
[2018-05-09] MEDS ORDERED: AMIODARONE 200 MG TAB PO STA (08:15)
[2018-05-09] MEDS ORDERED: NITROGLYCERIN SL TABS 0.4 MG TAB SUBLINGUAL PRN (08:24)
[2018-05-09] MEDS ORDERED: SODIUM CHLORIDE 0.9% 1,000 ML IV SCH (08:30)
[2018-05-09] MEDS ORDERED: SODIUM CHLORIDE 0.9% 1,000 ML IV ONE (08:40)
--- NOTE | 2018-05-09 08:40 | CE ---
CARDIAC ELECTROPHYSIOLOGY REPORT DATE OF SERVICE: 05/09/2018 PROCEDURE: Electrical cardioversion. INDICATION: Persistent atrial fibrillation. Mr. Tristen Hare is a 53-year-old gentleman with a history of non-rheumatic mitral regurgitation, recurrent persistent atrial fibrillation, and CAD with previous PCI of RCA. He has been adequately anticoagulated and was recently hospitalized with A. fib rapid rate in early April. After adequate anticoagulation was brought in for the procedure electively. Under the influence of ultra short-acting intravenous anesthetic agent with the attendance of the anesthesiologist, an initial shock of 200 joules was delivered, but the patient remained in atrial fibrillation. Subsequent shock was 250 and the third shock was 300 joules. At 300 joules, he converted to sinus rhythm, remained hemodynamically stable and neurologically intact. This was a successful cardioversion at 300 joules at third shock. Patient is hemodynamically stable, neurological intact and he will be discharged later on today if he remains stable and I will initiate him on amiodarone 200 mg b.i.d., and we will see him in the office on May 15. MMODL / IJN: [id number] /
[2018-05-09] MEDS ORDERED: LYSINE PO SCH (09:00)
[2018-05-09] MEDS ORDERED: NON-FORMULARY DRUG (Omeprazole [Omeprazole] 20 MG) PO SCH (09:00)
[2018-05-09] MEDS ORDERED: LISINOPRIL 10 MG TAB PO SCH (09:00)
[2018-05-09] MEDS ORDERED: NON-FORMULARY DRUG (Multivitamin [Men's Multi-Vitamin] 1 TAB) PO SCH (09:00)
[2018-05-09] MEDS ORDERED: GLUT PO SCH (09:00)
[2018-05-09] MEDS ORDERED: CITALOPRAM HYDROBROMIDE 20 MG TAB PO SCH (09:00)
[2018-05-09] MEDS ORDERED: METOPROLOL TARTRATE 50 MG TAB PO SCH (09:00)
[2018-05-09] MEDS ORDERED: MV MIN PO SCH (09:00)
[2018-05-09] MEDS ORDERED: CLOPIDOGREL 75 MG TAB PO SCH (09:00)
[2018-05-09] MEDS ORDERED: NON-FORMULARY DRUG (Fish Oil/Dha/Epa [Fish Oil 1,200 Mg Fish Oil] 1 CAP) PO SCH (09:00)
[2018-05-09] MEDS ORDERED: [UNRECOGNIZED DRUG - OTHER] PO SCH (09:00)
[2018-05-09] MEDS ORDERED: FUROSEMIDE 20 MG TAB PO SCH ×2 (09:00→16:00)
[2018-05-09] MEDS ORDERED: VIT C PO SCH (09:00)
[2018-05-09] MEDS ORDERED: MORPHINE SULFATE 4 MG/ML SYRINGE IVP STA (09:42)
[2018-05-09 11:07] VITALS: RESP 20
[2018-05-09 11:16] VITALS: PULSE 62
[2018-05-09 11:18] VITALS: BP 104/49
[2018-05-09] MEDS ORDERED: RIVAROXABAN 15 MG TAB PO SCH (17:30)
[2018-05-09] MEDS ORDERED: NON-FORMULARY DRUG (Glycopyrrolate/Formoterol Fum [Bevespi Aerosphere Inhaler] 1 PUFF) INHALATION SCH (20:00)
[2018-05-09] MEDS ORDERED: ATORVASTATIN 80 MG TAB PO SCH (21:00)
== END 2018-05-09 11:15 | disposition home or self-care (01) ==
LOC: CATHCVL 06:26
PROVIDERS: ATTEND Internal Medicine Interventional Cardiology
DX: I48.1 Persistent atrial fibrillation (principal); K21.9 Gastro-esophageal reflux disease without esophagitis; I25.10 Atherosclerotic heart disease of native coronary artery without angina pectoris; I11.0 Hypertensive heart disease with heart failure; I50.9 Heart failure, unspecified; E78.5 Hyperlipidemia, unspecified; I34.0 Nonrheumatic mitral (valve) insufficiency; Z88.0 Allergy status to penicillin; Z79.01 Long term (current) use of anticoagulants; Z79.02 Long term (current) use of antithrombotics/antiplatelets; Z79.82 Long term (current) use of aspirin; Z79.899 Other long term (current) drug therapy; Z87.891 Personal history of nicotine dependence; Z95.5 Presence of coronary angioplasty implant and graft; Z82.49 Family history of ischemic heart disease and other diseases of the circulatory system
CPT/HCPCS: 92960; J2704

== ENCOUNTER 2018-06-14 07:06 | Observation (INO) | payer BC ==
[2018-06-14] MEDS ORDERED: SODIUM CHLORIDE 0.9% 1,000 ML IV STA (07:28)
[2018-06-14] MEDS ORDERED: IPRATROPIUM-ALBUTEROL 3 ML NEB INHALATION STA (07:28)
--- NOTE | 2018-06-14 07:46 | ED ---
SOB HPI - General Chief Complaint: Shortness of Breath Stated Complaint: Shortness of Breath Time Seen by Provider: 06/14/18 07:20 Source: patient, RN notes reviewed Mode of arrival: ambulatory Limitations: no limitations - History of Present Illness Initial Comments: This is a 53-year-old male with a 30 year history of smoking with no prior history of being diagnosed with COPD or asthma does state he uses a CPAP machine and at about 4 AM this morning he became very short of breath. Also states he has some minimal chest discomfort across his chest and to his right shoulder area. Unable to describe what it feels like. Does not seem to get any worse with deep breathing or cough. He's had no fevers chills nausea vomiting sweats he felt like his sinuses congested. He also later stated that he had a history of A. fib that he was cardioverted out of. No other modifying factors at this time no new medications no drugs no alcohol. MD Complaint: shortness of breath - Related Data Home Medications Medication Instructions Recorded Confirmed Multivitamin [Men's Multi-Vitamin] 1 tab PO DAILY 01/22/14 06/14/18 Fish Oil/Dha/Epa [Fish Oil 1,200 1 cap PO DAILY 11/06/17 06/14/18 mg Fish Oil] Lisinopril [Zestril] 10 mg PO DAILY 11/28/17 06/14/18 Citalopram Hydrobromide [CeleXA] 20 mg PO DAILY 04/14/18 06/14/18 Glycopyrrolate/Formoterol Fum 1 puff INHALATION RT-BID 04/14/18 06/14/18 [Bevespi Aerosphere Inhaler] Omeprazole 20 mg PO DAILY 04/14/18 06/14/18 Clopidogrel [Plavix] 75 mg PO DAILY 05/08/18 06/14/18 Metoprolol Tartrate [Lopressor] 50 mg PO BID 05/08/18 06/14/18 Amiodarone [Cordarone] 200 mg PO BID 06/14/18 06/14/18 Furosemide [Lasix] 20 mg PO BID 06/14/18 06/14/18 Lisinopril [Prinivil] 10 mg PO DAILY 06/14/18 06/14/18 Metoprolol Tartrate [Lopressor] 50 mg PO DAILY 06/14/18 06/14/18 Multivitamins, Thera [Multivitamin 1 tab PO DAILY 06/14/18 06/14/18 (formulary)] Previous Rx's Medication Instructions Recorded Atorvastatin [Lipitor] 80 mg PO HS #90 tab 01/24/18 Nitroglycerin Sl Tabs [Nitrostat] 0.4 mg SUBLINGUAL Q5M PRN #25 tab 01/24/18 Rivaroxaban [Xarelto] 15 mg PO W/SUPPER #30 tab 04/18/18 Allergies Allergy/AdvReac Type Severity Reaction Status Date / Time Penicillins Allergy Unknown Verified 06/14/18 08:22 Childhood Review of Systems ROS Statement: Those systems with pertinent positive or pertinent negative responses have been documented in the HPI. ROS Other: All systems not noted in ROS Statement are negative. Past Medical History Past Medical History: Atrial Fibrillation, Coronary Artery Disease (CAD), GERD/ Reflux, GI Bleed, Hyperlipidemia, Hypertension Additional Past Medical History / Comment(s): Upper GI bleed, diverticular dx. SHORTNESS OF BREATH History of Any Multi-Drug Resistant Organisms: None Reported Past Surgical History: Appendectomy, Heart Catheterization With Stent Additional Past Surgical History / Comment(s): colonoscopy, EGD Past Anesthesia/Blood Transfusion Reactions: No Reported Reaction Date of Last Stent Placement:: january 2018 Past Psychological History: No Psychological Hx Reported Smoking Status: Former smoker Past Alcohol Use History: Occasional Past Drug Use History: None Reported - Past Family History Father Family Medical History: Congestive Heart Failure (CHF) Additional Family Medical History / Comment(s): Father of CHF at the age of 68yrs. Mother Family Medical History: No Reported History Additional Family Medical History / Comment(s): Mother at the age of 62 or 63 yrs from myasthenia gravis. General Exam - General Exam Comments Initial Comments: This is a well-developed well-nourished awake alert oriented 3 male Limitations: no limitations General appearance: alert, anxious Head exam: Present: atraumatic, normocephalic, normal inspection Eye exam: Present: normal appearance, PERRL, EOMI. Absent: scleral icterus, conjunctival injection, periorbital swelling ENT exam: Present: normal exam, mucous membranes moist Neck exam: Present: normal inspection. Absent: tenderness, meningismus, lymphadenopathy Respiratory exam: Present: decreased breath sounds, other (Slight basilar crackle more so on the left than the right). Absent: respiratory distress, wheezes, rales, rhonchi, stridor Cardiovascular Exam: Present: irregular rhythm, normal heart sounds. Absent: systolic murmur, diastolic murmur, rubs, gallop, clicks GI/Abdominal exam: Present: soft, normal bowel sounds. Absent: distended, tenderness, guarding, rebound, rigid Extremities exam: Present: normal inspection, full ROM, normal capillary refill. Absent: tenderness, pedal edema, joint swelling, calf tenderness Back exam: Present: normal inspection Neurological exam: Present: alert, oriented X3, CN II-XII intact Psychiatric exam: Present: normal affect, normal mood Skin exam: Present: warm, dry, intact, normal color. Absent: rash Course Vital Signs 06/14/18 06/14/18 06/14/18 07:10 07:44 07:52 Temperature 97.9 F Pulse Rate 88 84 74 Respiratory 20 Rate Blood Pressure 147/83 O2 Sat by Pulse 95 Oximetry 06/14/18 06/14/18 06/14/18 08:17 08:42 10:02 Temperature Pulse Rate 74 74 Respiratory 22 16 16 Rate Blood Pressure 113/73 124/68 O2 Sat by Pulse 99 100 Oximetry - Reevaluation(s) Reevaluation #1: 06/14/18 11:51 I did reevaluate patient after return from x-ray from CAT scan does still somewhat improved. Medical Decision Making - Medical Decision Making I did discuss findings with the patient and family members as well as with Dr. Valderrama the patient will be admitted he does have evidence of atrial fibrillation CHF. No evidence of pulmonary embolus among the CAT scan. - Lab Data Result diagrams: 06/14/18 07:35 06/14/18 07:35 Lab Results 06/14/18 06/14/18 06/14/18 Range/Units 07:35 07:35 07:35 WBC 6.6 (3.8-10.6) k/uL RBC 4.67 (4.30-5.90) m/uL Hgb 13.6 (13.0-17.5) gm/dL Hct 41.3 (39.0-53.0) % MCV 88.4 (80.0-100.0) fL MCH 29.1 (25.0-35.0) pg MCHC 32.9 (31.0-37.0) g/dL RDW 13.7 (11.5-15.5) % Plt Count 197 (150-450) k/uL Neutrophils % 68 % Lymphocytes % 19 % Monocytes % 7 % Eosinophils % 3 % Basophils % 1 % Neutrophils # 4.5 (1.3-7.7) k/uL Lymphocytes # 1.2 (1.0-4.8) k/uL Monocytes # 0.4 (0-1.0) k/uL Eosinophils # 0.2 (0-0.7) k/uL Basophils # 0.1 (0-0.2) k/uL PT (9.0-12.0) sec INR (<1.2) APTT (22.0-30.0) sec D-Dimer (<0.60) mg/L FEU Sodium 144 (137-145) mmol/L Potassium 4.2 (3.5-5.1) mmol/L Chloride 110 H (98-107) mmol/L Carbon Dioxide 23 (22-30) mmol/L Anion Gap 11 mmol/L BUN 16 (9-20) mg/dL Creatinine 0.80 (0.66-1.25) mg/dL Est GFR (CKD-EPI)AfAm >90 (>60 ml/min/1.73 sqM) Est GFR (CKD-EPI)NonAf >90 (>60 ml/min/1.73 sqM) Glucose 122 H (74-99) mg/dL Calcium 9.5 (8.4-10.2) mg/dL Magnesium 1.9 (1.6-2.3) mg/dL Total Bilirubin 1.3 (0.2-1.3) mg/dL AST 23 (17-59) U/L ALT 34 (21-72) U/L Alkaline Phosphatase 89 (38-126) U/L Total Creatine Kinase 115 (55-170) U/L CK-MB (CK-2) 1.5 (0.0-2.4) ng/mL CK-MB (CK-2) Rel Index 1.3 Troponin I <0.012 (0.000-0.034) ng/mL NT-Pro-B Natriuret Pep pg/mL Total Protein 7.1 (6.3-8.2) g/dL Albumin 4.3 (3.5-5.0) g/dL 06/14/18 06/14/18 Range/Units 07:35 07:35 WBC (3.8-10.6) k/uL RBC (4.30-5.90) m/uL Hgb (13.0-17.5) gm/dL Hct (39.0-53.0) % MCV (80.0-100.0) fL MCH (25.0-35.0) pg MCHC (31.0-37.0) g/dL RDW (11.5-15.5) % Plt Count (150-450) k/uL Neutrophils % % Lymphocytes % % Monocytes % % Eosinophils % % Basophils % % Neutrophils # (1.3-7.7) k/uL Lymphocytes # (1.0-4.8) k/uL Monocytes # (0-1.0) k/uL Eosinophils # (0-0.7) k/uL Basophils # (0-0.2) k/uL PT 10.2 (9.0-12.0) sec INR 1.0 (<1.2) APTT 27.0 (22.0-30.0) sec D-Dimer 0.62 H (<0.60) mg/L FEU Sodium (137-145) mmol/L Potassium (3.5-5.1) mmol/L Chloride (98-107) mmol/L Carbon Dioxide (22-30) mmol/L Anion Gap mmol/L BUN (9-20) mg/dL Creatinine (0.66-1.25) mg/dL Est GFR (CKD-EPI)AfAm (>60 ml/min/1.73 sqM) Est GFR (CKD-EPI)NonAf (>60 ml/min/1.73 sqM) Glucose (74-99) mg/dL Calcium (8.4-10.2) mg/dL Magnesium (1.6-2.3) mg/dL Total Bilirubin (0.2-1.3) mg/dL AST (17-59) U/L ALT (21-72) U/L Alkaline Phosphatase (38-126) U/L Total Creatine Kinase (55-170) U/L CK-MB (CK-2) (0.0-2.4) ng/mL CK-MB (CK-2) Rel Index Troponin I (0.000-0.034) ng/mL NT-Pro-B Natriuret Pep 1750 pg/mL Total Protein (6.3-8.2) g/dL Albumin (3.5-5.0) g/dL - EKG Data -: EKG Interpreted by Me (Atrial fibrillation rate of 75 QRS 108 QT since QTC 380/433 st-t wave alarcon) - Radiology Data Radiology results: report reviewed (I did review the imaging and report or is evidence of CHF.), image reviewed Critical Care Time Critical Care Time: Yes Critical Care Time: 31 minutes of critical care time which includes initial presentation with history physical labs x-rays several reevaluation the patient response to therapy discuss with the patient and family regarding findings discussed with the main physician admission orders and documentation of the above Disposition Clinical Impression: Congestive heart failure (CHF), Atrial fibrillation, Acute exacerbation of chronic obstructive airways disease Disposition: ADMITTED IP TO THIS [facility] Condition: Stable Referrals: Chandler Valderrama MD [Primary Care Provider] - 1-2 days
[2018-06-14 07:51] LABS: Basophils # (A) 0.1 k/uL (0-0.2); Basophils % (A) 1 %; Eosinophils # (A) 0.2 k/uL (0-0.7); Eosinophils % (A) 3 %; HCT 41.3 % (39.0-53.0); HGB 13.6 gm/dL (13.0-17.5); Lymphocytes # (A) 1.2 k/uL (1.0-4.8); Lymphocytes % (A) 19 %; MCH 29.1 pg (25.0-35.0); MCHC 32.9 g/dL (31.0-37.0); MCV 88.4 fL (80.0-100.0); Mean Platelet Volume 8.3; Monocytes # (A) 0.4 k/uL (0-1.0); Monocytes % (A) 7 %; Neutrophils # (A) 4.5 k/uL (1.3-7.7); Neutrophils % (A) 68 %; Platelet Count 197 k/uL (150-450); RBC 4.67 m/uL (4.30-5.90); RDW 13.7 % (11.5-15.5); WBC 6.6 k/uL (3.8-10.6)
[2018-06-14 08:05] LABS: ALT 34 U/L (21-72); AST 23 U/L (17-59); Albumin 4.3 g/dL (3.5-5.0); Alkaline Phosphatase 89 U/L (38-126); Anion Gap 11 mmol/L; Blood Urea Nitrogen 16 mg/dL (9-20); Calcium 9.5 mg/dL (8.4-10.2); Carbon Dioxide 23 mmol/L (22-30); Chloride 110 mmol/L (98-107); Glucose 122 mg/dL (74-99); Magnesium 1.9 mg/dL (1.6-2.3); Potassium 4.2 mmol/L (3.5-5.1); Sodium 144 mmol/L (137-145); Total Bilirubin 1.3 mg/dL (0.2-1.3); Total Protein 7.1 g/dL (6.3-8.2)
[2018-06-14 08:13] LABS: Prothrombin Time 10.2 sec (9.0-12.0)
[2018-06-14 08:20] LABS: Creatine Kinase 115 U/L (55-170)
--- NOTE | 2018-06-14 08:22 | XR ---
EXAMINATION TYPE: XR chest 2V DATE OF EXAM: 06/14/2018 COMPARISON: 04/14/2018 HISTORY: Difficulty breathing TECHNIQUE: Frontal and lateral views of the chest are obtained. FINDINGS: There is improved aeration of the lungs although interstitial prominence with a gradient e ffect and a gravity dependent position is seen with hilar fullness and cardiomegaly suggestive of imp roved decompensated congestive heart failure. No sizable pleural effusion or pneumothorax. Osseous st ructures appear intact. IMPRESSION: Improved sequela of decompensated congestive heart failure.
[2018-06-14 08:32] LABS: Creatine Kinase MB 1.5 ng/mL (0.0-2.4); Troponin I <0.012 ng/mL (0.000-0.034)
[2018-06-14 08:49] LABS: D-Dimer 0.62 mg/L FEU (<0.60)
[2018-06-14] MEDS ORDERED: FUROSEMIDE 10 MG/ML 4 ML VIAL IV STA (08:54)
--- NOTE | 2018-06-14 10:21 | CT ---
EXAMINATION TYPE: CT angio chest DATE OF EXAM: 06/14/2018 COMPARISON: 12/12/2017 HISTORY: pain CT DLP: 585 mGycm. Automated Exposure Control for Dose Reduction was Utilized. CONTRAST: CTA scan of the thorax is performed with IV Contrast, patient injected with 76 mL of Isovue 370, pulm onary embolism protocol. MIP Images are created on CT scanner and reviewed. FINDINGS: LUNGS: Small bilateral pleural effusions with associated bibasilar subsegmental compressive atelectas is. There is multifocal pleural thickening most likely related to a pleural effusion. Linear pleural thickening is seen anteriorly on image 61 and 50 left. In addition to mild paraseptal emphysematous c hanges there are scattered round glass opacities throughout both lungs. These are most confluent with in the anterior left upper lobe on image 39. Bibasilar mild peribronchial cuffing is also seen and le ft basilar intralobular septal thickening. There is bilateral subpleural reticulation.. There is no pleural effusion or pneumothorax seen. The tracheobronchial tree is patent. MEDIASTINUM: There is satisfactory enhancement of the pulmonary artery and its branches, there is no CT evidence for pulmonary embolism. There is new mediastinal adenopathy present with the largest prev ascular lymph node measuring 1.7 cm in short axis. The second largest mediastinal lymph node measures 1.6 cm within the subcarinal space. Hilar adenopathy is also seen bilaterally. Moderate to severe th ree-vessel coronary calcifications are noted with severe atherosclerosis in the left main coronary ar casey. Heart is mildly enlarged. No cardiomegaly or pericardial effusion is seen. The main pulmonary a rtery is enlarged measuring 3.5 cm. OTHER: Mild multilevel degenerative changes of the thoracic spine are noted. IMPRESSION: 1. No evidence of pulmonary embolus however the main pulmonary artery is enlarged suggesting underlyi ng pulmonary arterial hypertension. 2. Mediastinal adenopathy, which may be reactive as there are multifocal groundglass opacities favore d to represent pneumonitis/atypical pneumonia in combination with mediastinal adenopathy, likely reac tive and small bilateral pleural effusions. Follow-up suggested to ensure mediastinal adenopathy reso lution after treatment. Peribronchial cuffing is also likely reactive. 3. Interlobular septal thickening and cardiomegaly suggest a component of underlying congestive heart failure. 4. Moderate to severe coronary artery calcifications, a marker of coronary artery disease. These are most severe within the left main coronary artery.
[2018-06-14] MEDS ORDERED: FUROSEMIDE 10 MG/ML 4 ML VIAL IV SCH (12:00)
[2018-06-14] MEDS ORDERED: NITROGLYCERIN SL TABS 0.4 MG TAB SUBLINGUAL PRN (12:04)
--- NOTE | 2018-06-14 14:49 | P.CRDCN ---
History of Present Illness Consult date: 06/14/18 Requesting physician: Chandler Valderrama Reason for Consult (text): CHF, atrial fibrillation Chief complaint: shortness of breath History of present illness: This is a pleasant 53-year-old gentleman who sees Dr. NAN Valles in the office. Presented early this morning around 4 AM after waking up with some severe shortness of breath. He actually took his medications took a shower was getting ready for work and decided he should come to the emergency department. He has a history of COPD, asthma, atrial fibrillation for which she was cardioverted twice, sleep apnea, CAD with a orbital arthrectomy and multiple stents placed to the proximal and mid RCA in January of this year, he was found to have single vessel CAD during a heart cath in December 2017. Upon presentation EKG showed atrial fibrillation with controlled ventricular response. Patient actually began noticing shortness of breath with activity yesterday. Chest x- ray showed improved sequela of the Decompensated CHF. Chest CTA was negative for PE but did show some new mediastinal adenopathy with the largest of 1.7 with moderate to severe triple vessel coronary calcifications. Again patient had cardiac catheterization in December 2017 that showed single-vessel CAD. Labs showed a BUN of 16, creatinine 0.8 and a BNP of 1750. Troponin has been negative 1. Patient is adequately anticoagulated and is on antiplatelet therapy. Most recent echocardiogram in April of this year showed an ejection fraction of 55-60% with moderate MR. This is while patient was in atrial fibrillation. The patient does admit to having similar symptoms except not as bad when he presented to the emergency room in April of this year and was noted to be in atrial fibrillation with rapid ventricular response. Past Medical History Past Medical History: Atrial Fibrillation, Coronary Artery Disease (CAD), GERD/ Reflux, Hyperlipidemia, Hypertension, Sleep Apnea/CPAP/BIPAP Additional Past Medical History / Comment(s): Afib with RVR/chf, mitral valve regurgitation, cardiomyopathy, diverticular disease, past R shoulder injury/ pain. History of Any Multi-Drug Resistant Organisms: None Reported Past Surgical History: Appendectomy, Heart Catheterization With Stent Additional Past Surgical History / Comment(s): Cardioversions x 2, PCI with stent to RCA, colonoscopy, EGD Past Anesthesia/Blood Transfusion Reactions: No Reported Reaction Date of Last Stent Placement:: 01/22/18 Smoking Status: Former smoker - Past Family History Father Family Medical History: Congestive Heart Failure (CHF) Additional Family Medical History / Comment(s): Father from CHF at the age of 68yrs. Mother Family Medical History: No Reported History Additional Family Medical History / Comment(s): Mother at the age of 62 or 63 yrs from myasthenia gravis. Medications and Allergies Home Medications Medication Instructions Recorded Confirmed Type Multivitamin [Men's Multi-Vitamin] 1 tab PO DAILY 01/22/14 06/14/18 History Fish Oil/Dha/Epa [Fish Oil 1,200 1 cap PO DAILY 11/06/17 06/14/18 History mg Fish Oil] Lisinopril [Zestril] 10 mg PO DAILY 11/28/17 06/14/18 History Atorvastatin [Lipitor] 80 mg PO HS #90 tab 01/24/18 06/14/18 Rx Nitroglycerin Sl Tabs [Nitrostat] 0.4 mg SUBLINGUAL Q5M PRN #25 tab 01/24/1801/25 Rx Citalopram Hydrobromide [CeleXA] 20 mg PO DAILY 04/14/18 06/14/18 History Glycopyrrolate/Formoterol Fum 1 puff INHALATION RT-BID 04/14/18 06/14/18 History [Bevespi Aerosphere Inhaler] Omeprazole 20 mg PO DAILY 04/14/18 06/14/18 History Rivaroxaban [Xarelto] 15 mg PO W/SUPPER #30 tab 04/18/18 06/14/18 Rx Clopidogrel [Plavix] 75 mg PO DAILY 05/08/18 06/14/18 History Metoprolol Tartrate [Lopressor] 50 mg PO BID 05/08/18 06/14/18 History Amiodarone [Cordarone] 200 mg PO BID 06/14/18 06/14/18 History Furosemide [Lasix] 20 mg PO BID 06/14/18 06/14/18 History Lisinopril [Prinivil] 10 mg PO DAILY 06/14/18 06/14/18 History Metoprolol Tartrate [Lopressor] 50 mg PO DAILY 06/14/18 06/14/18 History Multivitamins, Thera [Multivitamin 1 tab PO DAILY 06/14/18 06/14/18 History (formulary)] Allergies Allergy/AdvReac Type Severity Reaction Status Date / Time Penicillins Allergy Unknown Verified 06/14/18 08:22 Childhood Physical Exam Vitals: Vital Signs Temp Pulse Resp BP Pulse Ox 06/14/18 12:33 72 16 122/79 99 06/14/18 10:02 74 16 124/68 100 06/14/18 08:42 74 16 113/73 99 06/14/18 08:17 22 06/14/18 07:52 74 06/14/18 07:44 84 06/14/18 07:10 97.9 F 88 20 147/83 95 Intake and Output 06/13/18 06/14/18 06/14/18 22:59 06:59 14:59 Other: Weight 113.398 kg PHYSICAL EXAMINATION: HEENT: Head is atraumatic, normocephalic. Pupils equal, round. Neck is supple. There is no elevated jugular venous pressure. HEART EXAMINATION: Heart sounds Irregularly irregular, S1 and S2 with a systolic murmur CHEST EXAMINATION:[ Lungs reveal diminished air entry to bilateral lower lobes. No chest wall tenderness is noted on palpation or with deep breathing .] ABDOMEN: [ Soft, nontender. Bowel sounds are heard. No orgaomegaly noted]. EXTREMITIES:[ 2+ peripheral pulses with no evidence of peripheral edema and no calf tederness noted] NEUROLOGIC [patient is awake, alert and oriented x3. . Results 06/14/18 07:35 06/14/18 07:35 Cardiac Enzymes 06/14/18 06/14/18 Range/Units 07:35 07:35 AST 23 (17-59) U/L CK-MB (CK-2) 1.5 (0.0-2.4) ng/mL Troponin I <0.012 (0.000-0.034) ng/mL Coagulation 06/14/18 Range/Units 07:35 PT 10.2 (9.0-12.0) sec APTT 27.0 (22.0-30.0) sec CBC 06/14/18 Range/Units 07:35 WBC 6.6 (3.8-10.6) k/uL RBC 4.67 (4.30-5.90) m/uL Hgb 13.6 (13.0-17.5) gm/dL Hct 41.3 (39.0-53.0) % Plt Count 197 (150-450) k/uL Comprehensive Metabolic Panel 06/14/18 Range/Units 07:35 Sodium 144 (137-145) mmol/L Potassium 4.2 (3.5-5.1) mmol/L Chloride 110 H (98-107) mmol/L Carbon Dioxide 23 (22-30) mmol/L BUN 16 (9-20) mg/dL Creatinine 0.80 (0.66-1.25) mg/dL Glucose 122 H (74-99) mg/dL Calcium 9.5 (8.4-10.2) mg/dL AST 23 (17-59) U/L ALT 34 (21-72) U/L Alkaline Phosphatase 89 (38-126) U/L Total Protein 7.1 (6.3-8.2) g/dL Albumin 4.3 (3.5-5.0) g/dL Current Medications Generic Name Dose Route Start Last Admin Trade Name Freq PRN Reason Stop Dose Admin Albuterol/Ipratropium 3 ml 06/14/18 16:00 Duoneb 0.5 Mg-3 Mg/3 Ml Soln INHALATION RT-Q4H [facility] Amiodarone HCl 200 mg 06/14/18 21:00 Cordarone PO BID [facility] Atorvastatin Calcium 80 mg 06/14/18 21:00 Lipitor PO HS [facility] Citalopram Hydrobromide 20 mg 06/15/18 09:00 Celexa PO DAILY [facility] Clopidogrel Bisulfate 75 mg 06/15/18 09:00 Plavix PO DAILY [facility] Formoterol Fumarate 20 mcg 06/14/18 20:00 Perforomist INHALATION RT-BID [facility] Furosemide 40 mg 06/14/18 16:00 Lasix IV Q8H [facility] Sodium Chloride 1,000 mls @ 20 mls/hr 06/14/18 07:28 06/14/18 08:39 Saline 0.9% IV 06/15/18 07:27 20 mls/hr .Q24H [facility] Administration Lisinopril 10 mg 06/15/18 09:00 Zestril PO DAILY [facility] Methylprednisolone Sodium Succinate 60 mg 06/14/18 18:00 Solu-Medrol IV Q6HR [facility] Metoprolol Tartrate 50 mg 06/14/18 21:00 Lopressor PO BID [facility] Multivitamins 1 each 06/15/18 12:00 Theragran PO DAILY@1200 [facility] Nitroglycerin 0.4 mg 06/14/18 12:04 Nitrostat SUBLINGUAL Q5M PRN Chest Pain Pantoprazole Sodium 40 mg 06/15/18 07:30 Protonix PO AC-BRKFST [facility] Rivaroxaban 15 mg 06/14/18 17:30 Xarelto PO W/SUPPER [facility] Intake and Output 06/13/18 06/14/18 06/14/18 22:59 06:59 14:59 Other: Weight 113.398 kg Patient Weight 06/15/18 06:59 Weight 113.398 kg 06/14/18 07:35 06/14/18 07:35 EKG Interpretations (text) Atrial fibrillation with controlled ventricular response Assessment and Plan Assessment: #1 symptoms of shortness of breath, similar to episode in April of this year where patient was found to be in atrial fibrillation with rapid ventricular response #2 persistent atrial fibrillation, likely in atrial fibrillation since yesterday , currently on amiodarone in adequately anticoagulated #3 history of CAD with arthrectomy and stenting of the RCA in January of this year #4 mitral regurgitation #5 history of smoking, quit in October of this year #6 COPD #7 acute diastolic congestive heart failure, likely exacerbated by atrial arrhythmias Plan: From cardiology's perspective, medications reviewed and will continue the same. Shortness of breath likely secondary to atrial fibrillation. We will monitor the patient overnight and likely discharged tomorrow with a referral to EP for workup for possible ablation. Continue IV Lasix for now, we'll switch to by mouth in the morning. We will continue to monitor the patient and provide further recommendations accordingly. The above dictated assessment and findings were discussed with signing physician. The impression and plan of care have been directed as dictated. Ann Quarles, Nurse Practitioner, acting as scribe for signing physician.
[2018-06-14] MEDS ORDERED: IPRATROPIUM 0.5 MG/2.5 ML NEBU INHALATION SCH (16:00)
[2018-06-14] MEDS: FUROSEMIDE 10 MG/ML 4 ML VIAL IV SCH ×2 (16:07→23:32)
[2018-06-14] MEDS: methylPREDNISolone SOD SUCCI 125 MG/2 ML VIAL IV SCH ×2 (16:07→23:36)
[2018-06-14] MEDS: IPRATROPIUM-ALBUTEROL 3 ML NEB INHALATION SCH ×2 (16:13→21:02)
[2018-06-14] MEDS: ACETAMINOPHEN TAB 325 MG TAB PO PRN ×2 (16:13→19:58)
[2018-06-14] MEDS ORDERED: RIVAROXABAN 15 MG TAB PO SCH (17:30)
[2018-06-14] MEDS: METOPROLOL TARTRATE 50 MG TAB PO SCH (19:57)
[2018-06-14] MEDS: ATORVASTATIN 80 MG TAB PO SCH (19:58)
--- NOTE | 2018-06-14 19:59 | PN ---
PROGRESS NOTE This is a 53-year-old gentleman who is admitted to hospital with atrial fibrillation with poorly controlled ventricular rate. He has had known paroxysmal atrial fibrillation and apparently had been cardioverted twice. He also has coronary artery disease and underwent angioplasty of right coronary artery. At the time of my evaluation this afternoon patient remains in atrial fibrillation and appears comfortable at rest. His predominant symptom had been in the form of shortness of breath that seems to be due to the atrial fibrillation. Patient also has moderate mitral regurgitation and patient feels short of breath when he goes into atrial fibrillation. His shortness of breath improves whenever he is in sinus rhythm. Patient is anticoagulated with Xarelto. 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 MMCHASEL / BESSN: [id number] /
[2018-06-14] MEDS ORDERED: traMADol 50 MG TAB PO PRN (20:30)
--- NOTE | 2018-06-14 20:30 | P.HPIM ---
History of Present Illness H&P Date: 06/14/18 Chief Complaint: Shortness of breath This is a history and physical on a 53-year-old white male with known history of atrial fibrillation. The patient for the last several days has had intermittent dyspnea on exertion. After evaluation, he was in recurrent atrial fibrillation with rapid ventricular response. He claims that he is been very compliant taking his medication because of multiple admissions. He had a previous admission about 3 months ago which presented in a similar fashion. No loss of consciousness but there was mild dizziness. The patient does claim current headache. No overt palpitations stated. No significant diaphoresis. Review of Systems Constitutional: Denies chills, Denies fever Ears, nose, mouth and throat: Denies headache, Denies sore throat Cardiovascular: Reports as per HPI, Reports dyspnea on exertion, Reports shortness of breath, Denies leg edema Gastrointestinal: Denies abdominal pain, Denies diarrhea, Denies nausea, Denies vomiting Musculoskeletal: Denies myalgias Integumentary: Denies pruritus, Denies rash Neurological: Denies numbness, Denies weakness Past Medical History Past Medical History: Atrial Fibrillation, Coronary Artery Disease (CAD), GERD/ Reflux, Hyperlipidemia, Hypertension, Sleep Apnea/CPAP/BIPAP Additional Past Medical History / Comment(s): Afib with RVR/chf, mitral valve regurgitation, cardiomyopathy, diverticular disease, past R shoulder injury/ pain. History of Any Multi-Drug Resistant Organisms: None Reported Past Surgical History: Appendectomy, Heart Catheterization With Stent Additional Past Surgical History / Comment(s): Cardioversions x 2, PCI with stent to RCA, colonoscopy, EGD Past Anesthesia/Blood Transfusion Reactions: No Reported Reaction Date of Last Stent Placement:: 01/22/18 Smoking Status: Former smoker - Past Family History Father Family Medical History: Congestive Heart Failure (CHF) Additional Family Medical History / Comment(s): Father from CHF at the age of 68yrs. Mother Family Medical History: No Reported History Additional Family Medical History / Comment(s): Mother at the age of 62 or 63 yrs from myasthenia gravis. Medications and Allergies Home Medications Medication Instructions Recorded Confirmed Type Multivitamin [Men's Multi-Vitamin] 1 tab PO DAILY 01/22/14 06/14/18 History Fish Oil/Dha/Epa [Fish Oil 1,200 1 cap PO DAILY 11/06/17 06/14/18 History mg Fish Oil] Lisinopril [Zestril] 10 mg PO DAILY 11/28/17 06/14/18 History Atorvastatin [Lipitor] 80 mg PO HS #90 tab 01/24/18 06/14/18 Rx Nitroglycerin Sl Tabs [Nitrostat] 0.4 mg SUBLINGUAL Q5M PRN #25 tab 01/24/1801/25 Rx Citalopram Hydrobromide [CeleXA] 20 mg PO DAILY 04/14/18 06/14/18 History Glycopyrrolate/Formoterol Fum 1 puff INHALATION RT-BID 04/14/18 06/14/18 History [Bevespi Aerosphere Inhaler] Omeprazole 20 mg PO DAILY 04/14/18 06/14/18 History Rivaroxaban [Xarelto] 15 mg PO W/SUPPER #30 tab 04/18/18 06/14/18 Rx Clopidogrel [Plavix] 75 mg PO DAILY 05/08/18 06/14/18 History Metoprolol Tartrate [Lopressor] 50 mg PO BID 05/08/18 06/14/18 History Amiodarone [Cordarone] 200 mg PO BID 06/14/18 06/14/18 History Furosemide [Lasix] 40 mg PO DAILY 06/14/18 06/14/18 History Lisinopril [Prinivil] 2.5 mg PO DAILY 06/14/18 06/14/18 History Metoprolol Tartrate [Lopressor] 50 mg PO DAILY 06/14/18 06/14/18 History Multivitamins, Thera [Multivitamin 1 tab PO DAILY 06/14/18 06/14/18 History (formulary)] Allergies Allergy/AdvReac Type Severity Reaction Status Date / Time Penicillins Allergy Unknown Verified 06/14/18 08:22 Childhood Physical Exam Vitals: Vital Signs Temp Pulse Pulse Resp BP BP Pulse Ox 06/14/18 20:00 98 F 77 18 123/82 99 06/14/18 16:20 76 06/14/18 16:15 72 06/14/18 16:00 97.7 F 69 18 133/91 98 06/14/18 12:33 72 16 122/79 99 06/14/18 10:02 74 16 124/68 100 06/14/18 08:42 74 16 113/73 99 06/14/18 08:17 22 06/14/18 07:52 74 06/14/18 07:44 84 06/14/18 07:10 97.9 F 88 20 147/83 95 Intake and Output 06/14/18 06/14/18 06/14/18 06:59 14:59 22:59 Other: Voiding Method Toilet # Voids 1 Weight 113.398 kg - Constitutional General appearance: no acute distress - EENT Eyes: EOMI - Neck Neck: no lymphadenopathy - Respiratory Respiratory: bilateral: CTA - Cardiovascular Rhythm: irregularly irregular Heart sounds: normal: S1, S2 Abnormal Heart Sounds: no S3 Gallop - Gastrointestinal General gastrointestinal: normal bowel sounds, soft - Integumentary Integumentary: no cellulitis - Neurologic Neurologic: CNII-XII intact - Musculoskeletal Musculoskeletal: gait normal - Psychiatric Psychiatric: A&O x's 3, no appropriate affect Results CBC & Chem 7: 06/14/18 07:35 06/14/18 07:35 Labs: Abnormal Lab Results - Last 24 Hours (Table) 06/14/18 06/14/18 Range/Units 07:35 07:35 D-Dimer 0.62 H (<0.60) mg/L FEU Chloride 110 H (98-107) mmol/L Glucose 122 H (74-99) mg/dL Thrombosis Risk Factor Assmnt - Choose All That Apply Any of the Below Risk Factors Present?: Yes Each Factor Represents 1 point: Abnormal pulmonary function (COPD), Age 41-60 years, Heart failure (<1month), Obesity (BMI >25) Other Risk Factors: No Other congenital or acquired thrombophilia - If yes, enter type in comment: No Thrombosis Risk Factor Assessment Total Risk Factor Score: 4 Thrombosis Risk Factor Assessment Level: Moderate Risk Assessment and Plan (1) Atrial fibrillation with RVR Current Visit: No Status: Acute Code(s): I48.91 - UNSPECIFIED ATRIAL FIBRILLATION SNOMED Code(s): 883279923695973 (2) CAD (coronary artery disease) Current Visit: No Status: Acute Code(s): I25.10 - ATHSCL HEART DISEASE OF [place] CORONARY ARTERY W/O ANG PCTRS SNOMED Code(s): 41649360 (3) Former smoker Current Visit: No Status: Acute Code(s): Z87.891 - PERSONAL HISTORY OF NICOTINE DEPENDENCE SNOMED Code(s): 3176096 (4) Hypertension Current Visit: No Status: Acute Code(s): I10 - ESSENTIAL (PRIMARY) HYPERTENSION SNOMED Code(s): 10411279 Plan: The patient is a full code at this time. Check appropriate laboratory examination including thyroid. Reconcile medications. We'll go ahead and give mild pain medication for headache per Appreciate cardiology input. Dr. Shaw's group will be covering for the weekend. See orders otherwise. Time with Patient: Greater than 30
[2018-06-14] MEDS ORDERED: AMIODARONE 200 MG TAB PO SCH (21:00)
[2018-06-14] MEDS: FORMOTEROL FUMARATE 20 MCG/2 ML NEBU INHALATION SCH (21:02)
[2018-06-15] MEDS: IPRATROPIUM-ALBUTEROL 3 ML NEB INHALATION SCH ×6 (01:30→20:07)
[2018-06-15] MEDS: methylPREDNISolone SOD SUCCI 125 MG/2 ML VIAL IV SCH ×3 (05:45→17:15)
[2018-06-15] MEDS: PANTOPRAZOLE 40 MG TABLET PO SCH (05:45)
[2018-06-15 07:27] LABS: HCT 42.8 % (39.0-53.0); HGB 14.1 gm/dL (13.0-17.5); MCH 28.7 pg (25.0-35.0); MCHC 32.9 g/dL (31.0-37.0); MCV 87.3 fL (80.0-100.0); Mean Platelet Volume 8.2; Platelet Count 204 k/uL (150-450); RDW 13.6 % (11.5-15.5); WBC 8.5 k/uL (3.8-10.6)
[2018-06-15 07:41] LABS: ALT 31 U/L (21-72); AST 21 U/L (17-59); Albumin 4.5 g/dL (3.5-5.0); Alkaline Phosphatase 71 U/L (38-126); Anion Gap 14 mmol/L; Blood Urea Nitrogen 18 mg/dL (9-20); Calcium 9.7 mg/dL (8.4-10.2); Carbon Dioxide 28 mmol/L (22-30); Chloride 99 mmol/L (98-107); Glucose 143 mg/dL (74-99); Potassium 3.6 mmol/L (3.5-5.1); Sodium 141 mmol/L (137-145); Total Bilirubin 1.7 mg/dL (0.2-1.3); Total Protein 7.5 g/dL (6.3-8.2)
[2018-06-15] MEDS: FORMOTEROL FUMARATE 20 MCG/2 ML NEBU INHALATION SCH ×2 (07:51→20:07)
[2018-06-15] MEDS: METOPROLOL TARTRATE 50 MG TAB PO SCH ×2 (08:28→21:37)
[2018-06-15] MEDS: FUROSEMIDE 10 MG/ML 4 ML VIAL IV SCH ×2 (08:28→15:19)
[2018-06-15] MEDS: LISINOPRIL 10 MG TAB PO SCH (08:29)
[2018-06-15] MEDS: CLOPIDOGREL 75 MG TAB PO SCH (08:29)
[2018-06-15] MEDS: CITALOPRAM HYDROBROMIDE 20 MG TAB PO SCH (08:29)
[2018-06-15] MEDS ORDERED: NON-FORMULARY DRUG (Multivitamin [Men's Multi-Vitamin] 1 TAB) PO SCH (09:00)
[2018-06-15] MEDS ORDERED: NON-FORMULARY DRUG (Fish Oil/Dha/Epa [Fish Oil 1,200 Mg Fish Oil] 1 CAP) PO SCH (09:00)
[2018-06-15] MEDS ORDERED: AMIODARONE 200 MG TAB PO SCH (09:00)
[2018-06-15] MEDS ORDERED: LACTATED RINGERS 1,000 ML IV ONE (11:23)
[2018-06-15 11:25] VITALS: BMI 32.8
[2018-06-15] MEDS ORDERED: PROPOFOL 10 MG/ML 20 ML VIAL IV ONE (11:45)
[2018-06-15] MEDS ORDERED: LIDOCAINE 1% INJ 10MG/ML (20 ML MDV) ONE (11:45)
[2018-06-15] MEDS ORDERED: ZOLPIDEM 5 MG TAB PO PRN (12:31)
[2018-06-15] MEDS ORDERED: SODIUM CHLORIDE 0.9% 1,000 ML IV SCH (13:15)
[2018-06-15] MEDS: MULTIVITAMINS, THERA 1 EACH TAB PO SCH (14:12)
--- NOTE | 2018-06-15 14:18 | ECHOT ---
TRANSESOPHAGEAL ECHOCARDIOGRAM INDICATION: Chronic atrial fibrillation prior to cardioversion. PROCEDURE NOTE: After obtaining informed consent, transesophageal echocardiogram was performed in left lateral position using an Omni plane probe. Local and IV sedation were obtained by the pillow agent. FINDINGS: 1. Left atrial appendage: There is a small echodense lesion within the left atrial appendage consistent with left atrial appendage thrombus. 2. Left ventricle has normal size and systolic function. 3. Right atrium, right ventricular are within normal limits. 4. Left atrium appears mildly enlarged. 5. Mitral valve: There is poor coaptation of the mitral valve leaflets without any evidence of flail of prolapse. There is moderate to severe posteriorly directed mitral regurgitation noted. Aortic valve is a 3-leaflet valve. There is no evidence of aortic stenosis or regurgitation. Ascending aorta is free of aneurysm. 6. Interatrial septum: There is no evidence of [id number] shunt by color-flow Doppler or [id number] shunt by agitated saline contrast study. CONCLUSIONS: 1. Left atrial appendage thrombus noted. 2. Moderate to severe posteriorly directed mitral regurgitation. PLAN: I am going to increase the dose of Xarelto to 20 mg daily. Cancel the cardioversion at this time. Arrange follow up with his primary policy services representative and increase the dose of amiodarone from 200 daily to 200 b.i.d. for more optimal heart rate control. He is already on Lopressor 50 b.i.d. MARTY / ALISHA: [id number] /
--- NOTE | 2018-06-15 14:33 | P.PN ---
Subjective Progress Note Date: 06/15/18 Principal diagnosis: Shortness of breath I'm dictating for Dr. Cordoba Interval history This is a history and physical on a 53-year-old white male with known history of atrial fibrillation. The patient for the last several days has had intermittent dyspnea on exertion. After evaluation, he was in recurrent atrial fibrillation with rapid ventricular response. Patient is admitted to the inpatient unit and has scarred cardiology consultation. Patient underwent the DYLAN today found a thrombus, has not received any cardioversion today. Review of Systems Constitutional: Denies chills, Denies fever Ears, nose, mouth and throat: Denies headache, Denies sore throat Cardiovascular: Reports as per HPI, Reports dyspnea on exertion, Reports shortness of breath, Denies leg edema Gastrointestinal: Denies abdominal pain, Denies diarrhea, Denies nausea, Denies vomiting Musculoskeletal: Denies myalgias Integumentary: Denies pruritus, Denies rash Neurological: Denies numbness, Denies weakness Objective - Vital Signs Vital signs: Vital Signs Temp 97.4 F L 06/15/18 08:00 Pulse 99 06/15/18 12:17 Resp 16 06/15/18 12:17 BP 89/52 06/15/18 12:17 Pulse Ox 93 L 06/15/18 12:17 Intake & Output 06/14/18 06/15/18 06/15/18 18:59 06:59 18:59 Intake Total 400 Output Total 2350 Balance -2350 400 Weight 113.398 kg 110 kg 110 kg Intake: IV 400 Output: Urine 2350 Other: Voiding Method Toilet # Voids 200 1 # Bowel Movements 0 - Exam PHYSICAL EXAM: GENERAL: HEENT: Conjunctivae normal. eyes normal. NECK: No JVD. No thyroid enlargement. No LNs CARDIOVASCULAR: S1, S2 muffled. Irregular rate and rhythm RESPIRATION: Breath sounds diminished in the bases. No rhonchi or crackles. No bronchial breathing. ABDOMEN: Soft, nontender . No guarding. no masses palpable. No ascites, No hepatosplenomegaly.Bowel sounds heard. LEGS: No edema. no swelling PSYCHIATRY: Alert and oriented 3, mood and affect normal. NERVOUS SYSTEM: Cranial N 2-12 grossly normal. Moves all 4 limbs. Diffuse weakness No focal deficits. No sensory deficit. No signs of cerebellar dysfucntion. Skin: no ulcer no rash Joints: No active swelling. No inflammation. Active Medications Acetaminophen (Tylenol Tab) 650 mg PO Q6HR PRN PRN Reason: Fever and/ or Pain Last Admin: 06/14/18 19:58 Dose: 650 mg Albuterol/Ipratropium (Duoneb 0.5 Mg-3 Mg/3 Ml Soln) 3 ml INHALATION RT-Q4H [facility] Last Admin: 06/15/18 12:02 Dose: Not Given Amiodarone HCl (Cordarone) 200 mg PO BID [facility] Atorvastatin Calcium (Lipitor) 80 mg PO HS [facility] Last Admin: 06/14/18 19:58 Dose: 80 mg Citalopram Hydrobromide (Celexa) 20 mg PO DAILY [facility] Last Admin: 06/15/18 08:29 Dose: 20 mg Clopidogrel Bisulfate (Plavix) 75 mg PO DAILY [facility] Last Admin: 06/15/18 08:29 Dose: 75 mg Formoterol Fumarate (Perforomist) 20 mcg INHALATION RT-BID [facility] Last Admin: 06/15/18 07:51 Dose: 20 mcg Furosemide (Lasix) 40 mg IV Q8H [facility] Last Admin: 06/15/18 08:28 Dose: 40 mg Sodium Chloride (Saline 0.9%) 1,000 mls @ 20 mls/hr IV .Q24H [facility] Lisinopril (Zestril) 10 mg PO DAILY [facility] Last Admin: 06/15/18 08:29 Dose: 10 mg Melatonin (Melatonin) 5 mg PO HS [facility] Methylprednisolone Sodium Succinate (Solu-Medrol) 60 mg IV Q6HR [facility] Last Admin: 06/15/18 14:12 Dose: Not Given Metoprolol Tartrate (Lopressor) 50 mg PO BID [facility] Last Admin: 06/15/18 08:28 Dose: 50 mg Multivitamins (Theragran) 1 each PO DAILY@1200 [facility] Last Admin: 06/15/18 14:12 Dose: Not Given Nitroglycerin (Nitrostat) 0.4 mg SUBLINGUAL Q5M PRN PRN Reason: Chest Pain Pantoprazole Sodium (Protonix) 40 mg PO AC-BRKFST [facility] Last Admin: 06/15/18 05:45 Dose: 40 mg Rivaroxaban (Xarelto) 20 mg PO W/SUPPER [facility] Tramadol HCl (Ultram) 50 mg PO QID PRN PRN Reason: Pain Last Admin: 06/14/18 22:38 Dose: 50 mg Zolpidem Tartrate (Ambien) 5 mg PO HS PRN PRN Reason: Insomnia - Labs CBC & Chem 7: 06/15/18 06:55 06/15/18 06:55 Labs: Abnormal Lab Results - Last 24 Hours (Table) 06/15/18 Range/Units 06:55 Glucose 143 H (74-99) mg/dL Total Bilirubin 1.7 H (0.2-1.3) mg/dL Assessment and Plan Assessment: Atrial fibrillation with RVR Coronary artery disease Former smoker Hypertension Hyperlipidemia Obesity Plan: We'll continue current medications and anticoagulation the form of Xarelto. Patient is closely monitored by gis programmer. Continue desk monitor. Continue GI and DVT prophylaxis monitor patient closely, further plan is based on his clinical course. The impression and plan of care has been dictated as directed. : I performed a history and examination of this patient, discussed the same with the dictator. I agree with the dictator's note ,documented as a scribe. Any additional findings or plans will be noted.
[2018-06-15] MEDS ORDERED: RIVAROXABAN 20 MG TAB PO SCH (17:30)
[2018-06-15] MEDS ORDERED: MELATONIN 5 MG TABLET PO SCH (21:00)
[2018-06-15 21:02] LABS: Glucose,Whole Blood 163 mg/dL (75-99)
[2018-06-15] MEDS: INSULIN ASPART 100 UNIT/ML 1 ML 10 ML VIAL SQ SCH (21:33)
[2018-06-15] MEDS: ATORVASTATIN 80 MG TAB PO SCH (21:34)
[2018-06-15] MEDS: AMIODARONE 200 MG TAB PO SCH (21:34)
[2018-06-16] MEDS: methylPREDNISolone SOD SUCCI 125 MG/2 ML VIAL IV SCH ×3 (00:05→12:11)
[2018-06-16] MEDS: FUROSEMIDE 10 MG/ML 4 ML VIAL IV SCH ×2 (00:05→08:44)
[2018-06-16] MEDS: IPRATROPIUM-ALBUTEROL 3 ML NEB INHALATION SCH ×4 (00:39→11:50)
[2018-06-16 06:10] LABS: Glucose,Whole Blood 165 mg/dL (75-99)
[2018-06-16] MEDS: PANTOPRAZOLE 40 MG TABLET PO SCH (06:38)
[2018-06-16] MEDS: INSULIN ASPART 100 UNIT/ML 1 ML 10 ML VIAL SQ SCH ×2 (06:38→12:12)
[2018-06-16] MEDS: FORMOTEROL FUMARATE 20 MCG/2 ML NEBU INHALATION SCH (08:20)
[2018-06-16] MEDS ORDERED: Potassium Replacement Protocol 1 EACH MISC MISCELLANE PRN (08:36)
[2018-06-16] MEDS: CLOPIDOGREL 75 MG TAB PO SCH (08:46)
[2018-06-16] MEDS: METOPROLOL TARTRATE 50 MG TAB PO SCH (08:46)
[2018-06-16] MEDS: AMIODARONE 200 MG TAB PO SCH (08:46)
[2018-06-16] MEDS: LISINOPRIL 10 MG TAB PO SCH (08:46)
[2018-06-16] MEDS: CITALOPRAM HYDROBROMIDE 20 MG TAB PO SCH (08:46)
[2018-06-16] MEDS ORDERED: POTASSIUM CHLORIDE ER 20 MEQ TAB.ER PO SCH (09:00)
[2018-06-16 11:43] LABS: Glucose,Whole Blood 150 mg/dL (75-99)
[2018-06-16 11:49] VITALS: BP 96/57; TEMP 98
[2018-06-16 11:53] VITALS: RESP 16
[2018-06-16 12:06] VITALS: PULSE 80
[2018-06-16] MEDS: MULTIVITAMINS, THERA 1 EACH TAB PO SCH (12:12)
--- NOTE | 2018-06-16 13:48 | P.PN ---
Subjective Progress Note Date: 06/16/18 This is a pleasant 53-year-old gentleman who sees Dr. NAN Valles in the office. Presented early this morning around 4 AM after waking up with some severe shortness of breath. He actually took his medications took a shower was getting ready for work and decided he should come to the emergency department. He has a history of COPD, asthma, atrial fibrillation for which she was cardioverted twice, sleep apnea, CAD with a orbital arthrectomy and multiple stents placed to the proximal and mid RCA in January of this year, he was found to have single vessel CAD during a heart cath in December 2017. Upon presentation EKG showed atrial fibrillation with controlled ventricular response. Patient actually began noticing shortness of breath with activity yesterday. Chest x- ray showed improved sequela of the Decompensated CHF. Chest CTA was negative for PE but did show some new mediastinal adenopathy with the largest of 1.7 with moderate to severe triple vessel coronary calcifications. Again patient had cardiac catheterization in December 2017 that showed single-vessel CAD. Labs showed a BUN of 16, creatinine 0.8 and a BNP of 1750. Troponin has been negative 1. Patient is adequately anticoagulated and is on antiplatelet therapy. Most recent echocardiogram in April of this year showed an ejection fraction of 55-60% with moderate MR. This is while patient was in atrial fibrillation. The patient does admit to having similar symptoms except not as bad when he presented to the emergency room in April of this year and was noted to be in atrial fibrillation with rapid ventricular response. 06/16/2018. The patient is feeling well this morning. He is anxious to be discharged home. He denies any chest discomfort, shortness of breath or palpitations. He remains in atrial fibrillation with a controlled rate. Objective - Vital Signs Vital signs: Vital Signs Temp 98 F 06/16/18 11:49 Pulse 80 06/16/18 12:06 Resp 16 06/16/18 11:50 BP 96/57 06/16/18 11:49 Pulse Ox 93 L 06/16/18 11:49 Intake & Output 06/15/18 06/16/18 06/16/18 18:59 06:59 18:59 Intake Total 520 1440 480 Output Total 800 900 500 Balance -280 540 -20 Weight 110 kg 111.3 kg Intake: IV 400 Oral 120 1440 480 Output: Urine 800 900 500 Other: Voiding Method Toilet # Voids 1 1 # Bowel Movements 0 - Exam HEENT: Head is atraumatic, normocephalic. Pupils equal, round. Neck is supple. There is no elevated jugular venous pressure. HEART EXAMINATION: Heart sounds Irregularly irregular, S1 and S2 with a systolic murmur CHEST EXAMINATION:Lungs reveal diminished air entry to bilateral lower lobes. No chest wall tenderness is noted on palpation or with deep breathing . ABDOMEN: Soft, nontender. Bowel sounds are heard. No organomegaly noted. EXTREMITIES:2+ peripheral pulses with no evidence of peripheral edema and no calf tederness noted NEUROLOGIC patient is awake, alert and oriented x3. - Labs CBC & Chem 7: 06/15/18 06:55 06/16/18 11:01 Labs: Abnormal Lab Results - Last 24 Hours (Table) 06/15/18 06/16/18 06/16/18 Range/Units 21:00 06:08 11:35 POC Glucose (mg/dL) 163 H 165 H 150 H (75-99) mg/dL Assessment and Plan Assessment: #1 symptoms of shortness of breath, similar to episode in April of this year where patient was found to be in atrial fibrillation with rapid ventricular response #2 persistent atrial fibrillation, likely in atrial fibrillation since yesterday , currently on amiodarone in adequately anticoagulated #3 history of CAD with arthrectomy and stenting of the RCA in January of this year #4 mitral regurgitation #5 history of smoking, quit in October of this year #6 COPD #7 acute diastolic congestive heart failure, likely exacerbated by atrial arrhythmias Plan: From a cardiac standpoint, continue with current medication regimen including Lopressor, amiodarone, Lasix and Xarelto. DYLAN showed evidence of left atrial appendage thrombus and his dose of Xarelto has been increased to 20 mg daily. He can be discharged home when he is medically stable to follow up with Dr. NAN Valles in one week.
--- NOTE | 2018-06-17 06:26 | DS ---
DISCHARGE SUMMARY I am covering for Dr. Valderrama. DATE OF SERVICE: 06/16/2018. FINAL DIAGNOSES: 1. Atrial fibrillation with fast ventricular rate. 2. Status post a DYLAN showing ventricular thrombus. 3. Coronary artery disease on anticoagulation. 4. History of nicotine dependence. 5. Hypertension. 6. Hyperlipidemia. 7. History of obesity. DISCHARGE DISPOSITION: The patient being discharged in stable condition with guarded prognosis. Cardiology cleared the patient for discharge. HISTORY OF PRESENT ILLNESS: This 53-year-old gentleman with a past medical history of multiple medical problems, admitted with recurrent atrial ablation, shortness of breath. The patient underwent a DYLAN by Cardiology. The DYLAN showed evidence of left atrial appendage thrombus and moderate pulmonary hypertension. Mitral regurgitation. Patient anticoagulants were adjusted. The patient improved significantly. Cardiology cleared the patient for discharge. DISCHARGE ADVICE AND MEDICATIONS: 1. Diet is cardiac diet. 2. Activity limited until followup. 3. Follow up with Dr. Valderrama's in 2 to 3 days. 4. Follow with cardiology as advised. MEDICATIONS ARE: Home medications are: 1. Cordarone 200 mg p.o. b.i.d. 2. Celexa 20 mg p.o. daily. 3. Plavix 75 mg. 4. Fish oil 1 p.o. daily. 5. Lasix 40 mg p.o. daily. 6. Glycopyrrolate one puff daily. 7. Lopressor 50 mg p.o. b.i.d. 8. Multivitamins 1 p.o. daily. 9. Omeprazole 20 mg p.o. daily. 10.Lipitor 80 mg q.h.s. 11.Zestril 2.5 mg daily. 12.Nitrostat 0.4 sublingual p.r.n. 13.Xarelto 10 mg with supper. Once again, the patient is being discharged in stable condition with guarded prognosis. MMODL / IJN: [id number] /
[2018-06-17 11:05] LABS: Hemoglobin A1C 5.9 % (4.0-6.0)
== END 2018-06-16 15:13 | disposition home or self-care (01) ==
LOC: EC 07:06 → 6SEL 12:14
PROVIDERS: ADMIT Family Medicine; ATTEND Family Medicine
DX: I48.0 Paroxysmal atrial fibrillation (principal); I48.1 Persistent atrial fibrillation; I11.0 Hypertensive heart disease with heart failure; I50.31 Acute diastolic (congestive) heart failure; J44.1 Chronic obstructive pulmonary disease with (acute) exacerbation; E66.9 Obesity, unspecified; Z68.33 Body mass index [BMI] 33.0-33.9, adult; E78.5 Hyperlipidemia, unspecified; I51.3 Intracardiac thrombosis, not elsewhere classified; I25.10 Atherosclerotic heart disease of native coronary artery without angina pectoris; I27.20 Pulmonary hypertension, unspecified; I34.0 Nonrheumatic mitral (valve) insufficiency; R51 Headache; K21.9 Gastro-esophageal reflux disease without esophagitis; G47.30 Sleep apnea, unspecified; Z99.89 Dependence on other enabling machines and devices; Z87.891 Personal history of nicotine dependence; Z79.899 Other long term (current) drug therapy; Z79.01 Long term (current) use of anticoagulants; Z79.02 Long term (current) use of antithrombotics/antiplatelets; Z88.0 Allergy status to penicillin; Z87.19 Personal history of other diseases of the digestive system; Z95.5 Presence of coronary angioplasty implant and graft; Z83.49 Family history of other endocrine, nutritional and metabolic diseases; I42.9 Cardiomyopathy, unspecified
CPT/HCPCS: 99291; 96374 ×2; 96376 ×3; 96375; 36415; 94640 ×6; 94760 ×2; 93005; 93312; 93320; 93325; 85379; 83880; 80053 ×2; 82550; 82553; 83735; 84132; 84484 ×2; 85025; 85027; 85610; 85730; 83036; 71046; 71275; G0378 ×3; J1940 ×3; J2930 ×3; J2001; J2704

== ENCOUNTER → 2018-07-02 | Outpatient (CLI) | payer BC ==
--- NOTE | 2018-07-02 17:10 | SFUN ---
SLEEP CENTER FOLLOW UP NOTE This is a progress note from the Sleep Center. Tristen is a 53-year-old male patient who was diagnosed having sleep apnea. The patient underwent a sleep study and the patient was found to have severe sleep apnea with an AHI of 38.1, a combination of obstructive and central. The patient was predominantly obstructive however. Since his last evaluation, the patient underwent CPAP therapy and today he is coming in for a CPAP compliancy check. Never the less, the patient was hospitalized during this time for atrial fibrillation. He is still in atrial fibrillation. His rate is controlled. The patient is not a candidate for cardioversion knowing that he has underlying intracardiac thrombus and based on that, he was placed on anticoagulation. Cardiology is on the case. He has been very compliant with CPAP treatment and has been using on a regular basis. For CPAP use for more than 4 hours, he is approaching 100%. AHI while on treatment is down to 6 and the patient has been averaging 8 hours and 17 minutes of CPAP use per night. Few central events noted. The apnea for central events is at 2.55. He is still looking for a comfortable mask. He has tried different masks and currently he is using the Mirage FX nose mask which seems to be much more comfortable compared to other alternatives. No nighttime awakenings for shortness of breath. No nocturnal chest pain. No nocturnal dyspnea. No . He is benefitting from the treatment and he seems to be quite compliant for now. PHYSICAL EXAMINATION: His current vital signs, BP is 129/75, pulse 84, respirations 16, temperature 97.4, weight 255, saturation 95% on room air. GENERAL APPEARANCE: Calm, comfortable. Head is atraumatic, normocephalic. NECK: Supple. There is no JVD. No goiter or neck masses. LUNGS: Clear to auscultation. HEART: Sounds are irregular, positive S1/S2. No S3, no murmurs. ABDOMEN: Soft, nontender. No organomegaly. EXTREMITIES: No edema. No cyanosis or clubbing. NEUROLOGIC: Alert and oriented x3. No focal neurological deficits. PSYCHIATRIC: Negative for anxiety or depression. IMPRESSION: 1. Sleep apnea. Predominantly obstructive with some mild central events. The patient's AHI is at 38. The patient is currently on CPAP pressure of 90, utilizing Mirage FX nose mask with good compliancy. 2. New onset atrial fibrillation. Rate is controlled. PLAN: The patient is compliant with CPAP treatment. We will keep the pressure at 9. Anticipate further improvement of obstructive and central events and subsequent followups. Meanwhile the patient is receiving cardiac care thru Dr. Obregon regarding his atrial fibrillation. We will continue same CPAP pressure settings and same mask interface. Treatment is successful and the patient is benefitting from the treatment. We will continue to follow. I will see him back in 6 months' time in followup. Ultimate plan is to do a cardioversion once he is fully anticoagulated. MMODL / IJN: [id number] /
== END | disposition home or self-care (01) ==
LOC: SLEEP 15:46
PROVIDERS: ATTEND Internal Medicine Critical Care Medicine
DX: G47.33 Obstructive sleep apnea (adult) (pediatric) (principal); G47.31 Primary central sleep apnea; I48.91 Unspecified atrial fibrillation; I51.3 Intracardiac thrombosis, not elsewhere classified; Z79.01 Long term (current) use of anticoagulants; Z99.89 Dependence on other enabling machines and devices

== ENCOUNTER 2018-07-04 08:14 | Inpatient (IN) | payer BC ==
[2018-07-04] MEDS ORDERED: ONDANSETRON 4 MG/2 ML VIAL IVP STA (08:42)
[2018-07-04] MEDS ORDERED: MORPHINE SULFATE 4 MG/ML SYRINGE IVP STA (08:42)
--- NOTE | 2018-07-04 08:45 | ED ---
General Adult HPI <SinVicente - Last Filed: 07/04/18 10:04> - General Source: patient, RN notes reviewed Mode of arrival: wheelchair Limitations: no limitations <Bishnu Harrison - Last Filed: 07/04/18 10:18> - General Chief complaint: Shortness of Breath Stated complaint: diff breathing,pain in arm Time Seen by Provider: 07/04/18 08:28 - History of Present Illness Initial comments: This a 53-year-old male presents emergency Department chief complaint of chest pain, shortness breath. Patient states pain started this morning raise developed some shortness breath last night. He felt that he was suffocating on his CPAP. Patient states that he does have known A. fib and has had a recent hospitalization and found to have blood clot in his heart based on a DYLAN. Patient states that they upped his dose of Xarelto. Patient states that he has been in out of A. fib since October and he also has known mitral valve regurg. Patient states pain is a left side underneath his left arm pain radiates on his left arm sightly. Patient denies any headache, dizziness, nausea vomiting diarrhea constipation no fever or chills no URI symptoms. Denies any leg swelling. He does take Lasix 40 morning 20 in the afternoon. Patient states she's also had a history of pleural effusion. (Bishnu Harrison) - Related Data Home Medications Medication Instructions Recorded Confirmed Multivitamin [Men's Multi-Vitamin] 1 tab PO DAILY 01/22/14 07/04/18 Fish Oil/Dha/Epa [Fish Oil 1,200 1 cap PO DAILY 11/06/17 07/04/18 mg Fish Oil] Citalopram Hydrobromide [CeleXA] 10 mg PO DAILY 04/14/18 07/04/18 Omeprazole 20 mg PO DAILY 04/14/18 07/04/18 Clopidogrel [Plavix] 75 mg PO DAILY 05/08/18 07/04/18 Metoprolol Tartrate [Lopressor] 50 mg PO BID 05/08/18 07/04/18 Furosemide [Lasix] 40 mg PO DAILY 06/14/18 07/04/18 Furosemide [Lasix] 20 mg PO DAILY@1600 07/04/18 07/04/18 Rivaroxaban [Xarelto] 20 mg PO DAILY@1600 07/04/18 07/04/18 Umeclidinium Brm/Vilanterol Tr 1 puff INHALATION RT-DAILY 07/04/18 07/04/18 [Anoro Ellipta 62.5-25 Mcg INH] Previous Rx's Medication Instructions Recorded Atorvastatin [Lipitor] 80 mg PO HS #90 tab 01/24/18 Nitroglycerin Sl Tabs [Nitrostat] 0.4 mg SUBLINGUAL Q5M PRN #25 tab 01/24/18 Lisinopril [Zestril] 2.5 mg PO DAILY 30 Days #30 tab 06/16/18 Allergies Allergy/AdvReac Type Severity Reaction Status Date / Time Penicillins Allergy Unknown Verified 07/04/18 08:46 Childhood Review of Systems ROS Other: All systems not noted in ROS Statement are negative. <Vicente Vogt - Last Filed: 07/04/18 10:04> ROS Other: All systems not noted in ROS Statement are negative. <Bishnu Harrison - Last Filed: 07/04/18 10:18> ROS Statement: Those systems with pertinent positive or pertinent negative responses have been documented in the HPI. Past Medical History Past Medical History: Atrial Fibrillation, Coronary Artery Disease (CAD), GERD/ Reflux, Hyperlipidemia, Hypertension, Sleep Apnea/CPAP/BIPAP Additional Past Medical History / Comment(s): Afib with RVR/chf, mitral valve regurgitation, cardiomyopathy, diverticular disease, past R shoulder injury/ pain. History of Any Multi-Drug Resistant Organisms: None Reported Past Surgical History: Appendectomy, Heart Catheterization With Stent Additional Past Surgical History / Comment(s): Cardioversions x 2, PCI with stent to RCA, colonoscopy, EGD Past Anesthesia/Blood Transfusion Reactions: No Reported Reaction Date of Last Stent Placement:: 01/22/18 Past Psychological History: No Psychological Hx Reported Smoking Status: Former smoker Past Alcohol Use History: Daily Past Drug Use History: None Reported - Past Family History Father Family Medical History: Congestive Heart Failure (CHF) Additional Family Medical History / Comment(s): Father from CHF at the age of 68yrs. Mother Family Medical History: No Reported History Additional Family Medical History / Comment(s): Mother at the age of 62 or 63 yrs from myasthenia gravis. <Bishnu Harrison - Last Filed: 07/04/18 10:18> General Exam Limitations: no limitations General appearance: alert, in no apparent distress Head exam: Present: atraumatic, normocephalic, normal inspection Eye exam: Present: normal appearance, PERRL, EOMI. Absent: scleral icterus, conjunctival injection, periorbital swelling ENT exam: Present: normal exam, normal oropharynx, mucous membranes moist Neck exam: Present: normal inspection. Absent: tenderness, meningismus, lymphadenopathy Respiratory exam: Present: decreased breath sounds (Decrease in the left). Absent: normal lung sounds bilaterally, respiratory distress, wheezes, rales, rhonchi, stridor Cardiovascular Exam: Present: regular rate, irregular rhythm, systolic murmur. Absent: normal rhythm, normal heart sounds, diastolic murmur, rubs, gallop, clicks Back exam: Present: normal inspection. Absent: CVA tenderness (R), CVA tenderness (L) Skin exam: Present: warm, dry, intact, normal color. Absent: rash <Bishnu Harrison - Last Filed: 07/04/18 10:18> Course <Vicente Vogt - Last Filed: 07/04/18 10:04> <Bishnu Harrison - Last Filed: 07/04/18 10:18> Vital Signs 07/04/18 07/04/18 08:18 09:00 Temperature 97.6 F Pulse Rate 75 67 Respiratory 19 22 Rate Blood Pressure 128/88 121/90 O2 Sat by Pulse 98 98 Oximetry - Reevaluation(s) Reevaluation #1: 07/04/18 10:04 Patient does not meet sepsis criteria at this time. Patient reevaluated by myself, Dr. Vogt. Patient does have rales more so left base. Chest x-ray reviewed. Labs reviewed. Patient updated on results and plan. Case was discussed in detail with Dr. Valderrama, who will admit his patient. (Vicente Vogt) EKG Findings - EKG Comments: EKG Findings:: EKG performed at 8:53 A. fib with incomplete right bundle rate of 78 QRS 108 QT/QTC 408/465 <Bishnu Harrison - Last Filed: 07/04/18 10:18> Medical Decision Making - Lab Data Result diagrams: 07/04/18 09:00 07/04/18 09:00 <Vicente Vogt - Last Filed: 07/04/18 10:04> - Lab Data Result diagrams: 07/04/18 09:00 07/04/18 09:00 <Bishnu Harrison - Last Filed: 07/04/18 10:18> - Lab Data Lab Results 07/04/18 07/04/18 07/04/18 Range/Units 09:00 09:00 09:00 WBC 7.0 (3.8-10.6) k/uL RBC 4.69 (4.30-5.90) m/uL Hgb 13.8 (13.0-17.5) gm/dL Hct 41.0 (39.0-53.0) % MCV 87.5 (80.0-100.0) fL MCH 29.4 (25.0-35.0) pg MCHC 33.6 (31.0-37.0) g/dL RDW 14.2 (11.5-15.5) % Plt Count 174 (150-450) k/uL Neutrophils % 63 % Lymphocytes % 23 % Monocytes % 6 % Eosinophils % 3 % Basophils % 1 % Neutrophils # 4.4 (1.3-7.7) k/uL Lymphocytes # 1.6 (1.0-4.8) k/uL Monocytes # 0.4 (0-1.0) k/uL Eosinophils # 0.2 (0-0.7) k/uL Basophils # 0.1 (0-0.2) k/uL PT (9.0-12.0) sec INR (<1.2) APTT (22.0-30.0) sec Sodium 141 (137-145) mmol/L Potassium 4.2 (3.5-5.1) mmol/L Carbon Dioxide 24 (22-30) mmol/L Anion Gap 10 mmol/L BUN 18 (9-20) mg/dL Creatinine 0.78 (0.66-1.25) mg/dL Est GFR (CKD-EPI)AfAm >90 (>60 ml/min/1.73 sqM) Est GFR (CKD-EPI)NonAf >90 (>60 ml/min/1.73 sqM) Glucose 113 H (74-99) mg/dL Calcium 9.7 (8.4-10.2) mg/dL Magnesium 1.8 (1.6-2.3) mg/dL Total Bilirubin 1.6 H (0.2-1.3) mg/dL AST 26 (17-59) U/L ALT 38 (21-72) U/L Alkaline Phosphatase 90 (38-126) U/L Total Creatine Kinase 111 (55-170) U/L CK-MB (CK-2) 1.4 (0.0-2.4) ng/mL CK-MB (CK-2) Rel Index 1.3 Troponin I <0.012 (0.000-0.034) ng/mL Total Protein 7.0 (6.3-8.2) g/dL Albumin 4.2 (3.5-5.0) g/dL 07/04/18 Range/Units 09:00 WBC (3.8-10.6) k/uL RBC (4.30-5.90) m/uL Hgb (13.0-17.5) gm/dL Hct (39.0-53.0) % MCV (80.0-100.0) fL MCH (25.0-35.0) pg MCHC (31.0-37.0) g/dL RDW (11.5-15.5) % Plt Count (150-450) k/uL Neutrophils % % Lymphocytes % % Monocytes % % Eosinophils % % Basophils % % Neutrophils # (1.3-7.7) k/uL Lymphocytes # (1.0-4.8) k/uL Monocytes # (0-1.0) k/uL Eosinophils # (0-0.7) k/uL Basophils # (0-0.2) k/uL PT 10.1 (9.0-12.0) sec INR 1.0 (<1.2) APTT 26.1 (22.0-30.0) sec Sodium (137-145) mmol/L Potassium (3.5-5.1) mmol/L Carbon Dioxide (22-30) mmol/L Anion Gap mmol/L BUN (9-20) mg/dL Creatinine (0.66-1.25) mg/dL Est GFR (CKD-EPI)AfAm (>60 ml/min/1.73 sqM) Est GFR (CKD-EPI)NonAf (>60 ml/min/1.73 sqM) Glucose (74-99) mg/dL Calcium (8.4-10.2) mg/dL Magnesium (1.6-2.3) mg/dL Total Bilirubin (0.2-1.3) mg/dL AST (17-59) U/L ALT (21-72) U/L Alkaline Phosphatase (38-126) U/L Total Creatine Kinase (55-170) U/L CK-MB (CK-2) (0.0-2.4) ng/mL CK-MB (CK-2) Rel Index Troponin I (0.000-0.034) ng/mL Total Protein (6.3-8.2) g/dL Albumin (3.5-5.0) g/dL Disposition <Vicente Vogt - Last Filed: 07/04/18 10:04> <Bishnu Harrison - Last Filed: 07/04/18 10:18> Clinical Impression: Hospital-acquired pneumonia Disposition: ADMITTED IP TO THIS HOSP Condition: Fair Referrals: Chandler Valderrama MD [Primary Care Provider] - 1-2 days
[2018-07-04 09:22] LABS: Basophils # (A) 0.1 k/uL (0-0.2); Basophils % (A) 1 %; Eosinophils # (A) 0.2 k/uL (0-0.7); Eosinophils % (A) 3 %; HGB 13.8 gm/dL (13.0-17.5); Lymphocytes # (A) 1.6 k/uL (1.0-4.8); Lymphocytes % (A) 23 %; MCH 29.4 pg (25.0-35.0); MCHC 33.6 g/dL (31.0-37.0); MCV 87.5 fL (80.0-100.0); Mean Platelet Volume 8.2; Monocytes # (A) 0.4 k/uL (0-1.0); Monocytes % (A) 6 %; Neutrophils # (A) 4.4 k/uL (1.3-7.7); Neutrophils % (A) 63 %; Platelet Count 174 k/uL (150-450); RBC 4.69 m/uL (4.30-5.90); RDW 14.2 % (11.5-15.5)
--- NOTE | 2018-07-04 09:24 | XR ---
EXAMINATION TYPE: XR chest 2V DATE OF EXAM: 07/04/2018 COMPARISON: 06/14/2018 HISTORY: Shortness of breath TECHNIQUE: Frontal and lateral views of the chest are obtained. FINDINGS: Scattered senescent parenchymal changes noted. Hyperinflation compatible with COPD. Patchy basilar infiltrates left greater than right. Correlate for pneumonia. Heart size is stable. Mediastinal structures are stable and grossly unremarkable. No evidence for hilar prominence. Degenerative changes dorsal spine. IMPRESSION: 1. Patchy basilar infiltrates left greater than right. Correlate for pneumonia.
[2018-07-04 09:32] LABS: Chloride 107 mmol/L (98-107)
[2018-07-04 09:33] LABS: ALT 38 U/L (21-72); AST 26 U/L (17-59); Albumin 4.2 g/dL (3.5-5.0); Alkaline Phosphatase 90 U/L (38-126); Anion Gap 10 mmol/L; Blood Urea Nitrogen 18 mg/dL (9-20); Calcium 9.7 mg/dL (8.4-10.2); Carbon Dioxide 24 mmol/L (22-30); Glucose 113 mg/dL (74-99); Magnesium 1.8 mg/dL (1.6-2.3); Potassium 4.2 mmol/L (3.5-5.1); Sodium 141 mmol/L (137-145); Total Bilirubin 1.6 mg/dL (0.2-1.3)
[2018-07-04] MEDS ORDERED: LEVOFLOXACIN 750MG-D5W PMX 750 MG in DEXTROSE/WATER 1 150ML.BAG IVPB STA (09:37)
[2018-07-04] MEDS ORDERED: AZTREONAM 2 GM in SODIUM CHLORIDE 0.9% 100 ML IVPB STA (09:37)
[2018-07-04] MEDS ORDERED: PNEUMONIA PROTOCOL UTILIZED 1 EACH MISC PO PRN (09:37)
[2018-07-04 09:39] LABS: Partial Thromboplastin Time 26.1 sec (22.0-30.0); Prothrombin Time 10.1 sec (9.0-12.0)
[2018-07-04 09:59] LABS: Creatine Kinase 111 U/L (55-170)
[2018-07-04 10:13] LABS: Creatine Kinase MB 1.4 ng/mL (0.0-2.4); Troponin I <0.012 ng/mL (0.000-0.034)
[2018-07-04] MEDS: IPRATROPIUM-ALBUTEROL 3 ML NEB INHALATION SCH ×3 (12:54→19:57)
[2018-07-04] MEDS ORDERED: HYDROcodone/APAP 5-325MG 1 EACH TAB PO STA (14:15)
[2018-07-04] MEDS: AZTREONAM 2 GM in SODIUM CHLORIDE 0.9% 100 ML IVPB SCH ×2 (16:09→23:42)
[2018-07-04] MEDS ORDERED: NITROGLYCERIN SL TABS 0.4 MG TAB SUBLINGUAL PRN (16:59)
[2018-07-04] MEDS: CLOPIDOGREL 75 MG TAB PO SCH (17:27)
[2018-07-04] MEDS: ATORVASTATIN 80 MG TAB PO SCH (19:58)
[2018-07-04] MEDS: HYDROcodone/APAP 5-325MG 1 EACH TAB PO PRN (19:58)
[2018-07-04] MEDS: METOPROLOL TARTRATE 50 MG TAB PO SCH (19:58)
--- NOTE | 2018-07-04 21:04 | P.HPIM ---
History of Present Illness H&P Date: 07/04/18 Chief Complaint: Chest pain with dyspnea. This is a history of physical and 53-year-old white male with known history of recalcitrant atrial fibrillation. The patient states for the last week or so he 's been having more fatigue as each workday has gone on. This morning he had woken up with significant chest pressure. He states he thought is having some form of angina but it turned out to be more shortness of breath. Evaluation emergency room did show dull pneumonia. He is been having cough and congestion. At this point it's nonproductive however. Because of the evaluation emergency room and his clinical condition with his other comorbid conditions he was appropriately admitted. He does complain of mild chest pain. Review of Systems Constitutional: Denies chills, Denies fever Eyes: denies blurred vision, denies pain Ears, nose, mouth and throat: Denies headache, Denies sore throat Cardiovascular: Denies chest pain, Denies shortness of breath Respiratory: Reports cough, Reports dyspnea Gastrointestinal: Denies abdominal pain, Denies diarrhea, Denies nausea, Denies vomiting Musculoskeletal: Denies myalgias Neurological: Denies numbness, Denies weakness Psychiatric: Denies anxiety, Denies depression Past Medical History Past Medical History: Atrial Fibrillation, Coronary Artery Disease (CAD), Heart Failure, GERD/Reflux, Hyperlipidemia, Hypertension, Sleep Apnea/CPAP/BIPAP Additional Past Medical History / Comment(s): Pt recently admitted to [facility] on with Afib RVR and had DYLAN that showed ventricular thrombus-on xarelto, Other HX: mitral valve regurgitation, pleural effusion, diverticular disease, past R shoulder injury/chronic pain. History of Any Multi-Drug Resistant Organisms: None Reported Past Surgical History: Appendectomy, Heart Catheterization With Stent Additional Past Surgical History / Comment(s): 06/17/18 DYLAN, cardioversions x 2, PCI with stent to RCA, colonoscopy, EGD Past Anesthesia/Blood Transfusion Reactions: No Reported Reaction Date of Last Stent Placement:: 01/22/18 Smoking Status: Former smoker - Past Family History Father Family Medical History: Congestive Heart Failure (CHF) Additional Family Medical History / Comment(s): Father from CHF at the age of 68yrs. Mother Family Medical History: No Reported History Additional Family Medical History / Comment(s): Mother at the age of 62 or 63 yrs from myasthenia gravis. Medications and Allergies Home Medications Medication Instructions Recorded Confirmed Type Multivitamin [Men's Multi-Vitamin] 1 tab PO DAILY 01/22/14 07/04/18 History Fish Oil/Dha/Epa [Fish Oil 1,200 1 cap PO DAILY 11/06/17 07/04/18 History mg Fish Oil] Atorvastatin [Lipitor] 80 mg PO HS #90 tab 01/24/18 07/04/18 Rx Nitroglycerin Sl Tabs [Nitrostat] 0.4 mg SUBLINGUAL Q5M PRN #25 tab 01/24/18 Rx Citalopram Hydrobromide [CeleXA] 10 mg PO DAILY 04/14/18 07/04/18 History Omeprazole 20 mg PO DAILY 04/14/18 07/04/18 History Clopidogrel [Plavix] 75 mg PO DAILY 05/08/18 07/04/18 History Metoprolol Tartrate [Lopressor] 50 mg PO BID 05/08/18 07/04/18 History Furosemide [Lasix] 40 mg PO DAILY 06/14/18 07/04/18 History Lisinopril [Zestril] 2.5 mg PO DAILY 30 Days #30 tab 06/16/18 07/04/18 Rx Furosemide [Lasix] 20 mg PO DAILY@1600 07/04/18 07/04/18 History Rivaroxaban [Xarelto] 20 mg PO DAILY@1600 07/04/18 07/04/18 History Umeclidinium Brm/Vilanterol Tr 1 puff INHALATION RT-DAILY 07/04/18 07/04/18 History [Anoro Ellipta 62.5-25 Mcg INH] Allergies Allergy/AdvReac Type Severity Reaction Status Date / Time Penicillins Allergy Unknown Verified 07/04/18 08:46 Childhood Physical Exam Vitals: Vital Signs Temp Pulse Pulse Resp BP BP Pulse Ox 07/04/18 20:11 70 07/04/18 19:58 70 97 07/04/18 16:44 80 07/04/18 16:33 76 07/04/18 15:00 97.6 F 88 20 131/74 96 07/04/18 13:08 88 07/04/18 12:54 88 07/04/18 11:25 97.5 F L 72 16 119/79 99 07/04/18 10:44 98.0 F 65 18 106/81 98 07/04/18 10:00 75 18 104/72 07/04/18 09:00 67 22 121/90 98 07/04/18 08:18 97.6 F 75 19 128/88 98 Intake and Output 07/04/18 07/04/18 07/04/18 06:59 14:59 22:59 Other: Weight 115.666 kg - Constitutional General appearance: no acute distress - EENT Eyes: EOMI - Neck Neck: no lymphadenopathy - Respiratory Respiratory: left: rhonchi, bilateral: diminished - Cardiovascular Rhythm: irregularly irregular Heart sounds: normal: S1, S2 Abnormal Heart Sounds: no S3 Gallop - Gastrointestinal General gastrointestinal: soft, no tenderness - Integumentary Integumentary: no cyanotic - Neurologic Neurologic: CNII-XII intact - Musculoskeletal Musculoskeletal: generalized weakness - Psychiatric Psychiatric: A&O x's 3 Results CBC & Chem 7: 07/04/18 09:00 07/04/18 09:00 Labs: Abnormal Lab Results - Last 24 Hours (Table) 07/04/18 Range/Units 09:00 Glucose 113 H (74-99) mg/dL Total Bilirubin 1.6 H (0.2-1.3) mg/dL Thrombosis Risk Factor Assmnt - Choose All That Apply Any of the Below Risk Factors Present?: Yes Each Factor Represents 1 point: Age 41-60 years, Obesity (BMI >25), Serious lung disease incl. pneumonia (< 1month) Other Risk Factors: No Other congenital or acquired thrombophilia - If yes, enter type in comment: No Thrombosis Risk Factor Assessment Total Risk Factor Score: 3 Thrombosis Risk Factor Assessment Level: Moderate Risk Assessment and Plan (1) Hospital-acquired pneumonia Current Visit: Yes Status: Acute Code(s): J18.9 - PNEUMONIA, UNSPECIFIED ORGANISM SNOMED Code(s): 657478027 (2) Atrial fibrillation Current Visit: No Status: Acute Code(s): I48.91 - UNSPECIFIED ATRIAL FIBRILLATION SNOMED Code(s): 16260139 (3) CAD (coronary artery disease) Current Visit: No Status: Acute Code(s): I25.10 - ATHSCL HEART DISEASE OF [place] CORONARY ARTERY W/O ANG PCTRS SNOMED Code(s): 32414181 (4) Former smoker Current Visit: No Status: Acute Code(s): Z87.891 - PERSONAL HISTORY OF NICOTINE DEPENDENCE SNOMED Code(s): 9386201 (5) Hypertension Current Visit: No Status: Acute Code(s): I10 - ESSENTIAL (PRIMARY) HYPERTENSION SNOMED Code(s): 19584502 Plan: Reconcile medications. Pain control. Check CBC and CMP in a.m. Consult pulmonology. At this time, the patient's full code. See orders otherwise. Solu Medrol. Also be added this evening to increase respiratory efficiency. Go ahead and add Ambien 5 for when necessary sleep today. Time with Patient: Greater than 30
[2018-07-04] MEDS: methylPREDNISolone SOD SUCCI 40 MG/ML 1 ML VIAL IV SCH (23:42)
[2018-07-04] MEDS: ZOLPIDEM 5 MG TAB PO PRN (23:47)
--- NOTE | 2018-07-05 07:42 | P.PN ---
Subjective Progress Note Date: 07/05/18 Principal diagnosis: History of COPD atrial fibrillation. This is a continue progress note a 53-year-old white male essentially admitted for bilateral pneumonia. The patient still has some dyspnea on exertion. But no voiding difficulties. No sniffing nausea, vomiting or diarrhea. Pulmonology consult is pending. Objective - Vital Signs Vital signs: Vital Signs Temp 97.9 F 07/05/18 06:25 Pulse 84 07/05/18 06:25 Resp 20 07/05/18 06:25 BP 110/65 07/05/18 06:25 Pulse Ox 97 07/05/18 06:25 Intake & Output 07/04/18 07/05/18 07/05/18 18:59 06:59 18:59 Intake Total 500 Balance 500 Weight 115.666 kg Intake: Oral 500 Other: # Voids 1 - Constitutional General appearance: Absent: average body habitus - EENT Eyes: Present: abnormal pupil - Respiratory Respiratory: bilateral: CTA - Cardiovascular Rhythm: regular Heart sounds: normal: S1, S2 Abnormal Heart Sounds: Absent: S3 Gallop - Gastrointestinal General gastrointestinal: Present: soft. Absent: tenderness - Integumentary Integumentary: Absent: cellulitis - Psychiatric Psychiatric: Present: A&O x's 3. Absent: intact judgment & insight - Labs CBC & Chem 7: 07/04/18 09:00 07/04/18 09:00 Labs: Abnormal Lab Results - Last 24 Hours (Table) 07/04/18 Range/Units 09:00 Glucose 113 H (74-99) mg/dL Total Bilirubin 1.6 H (0.2-1.3) mg/dL Assessment and Plan (1) Hospital-acquired pneumonia Current Visit: Yes Status: Acute Code(s): J18.9 - PNEUMONIA, UNSPECIFIED ORGANISM SNOMED Code(s): 486774958 (2) Atrial fibrillation Current Visit: No Status: Acute Code(s): I48.91 - UNSPECIFIED ATRIAL FIBRILLATION SNOMED Code(s): 08110302 (3) CAD (coronary artery disease) Current Visit: No Status: Acute Code(s): I25.10 - ATHSCL HEART DISEASE OF [place] CORONARY ARTERY W/O ANG PCTRS SNOMED Code(s): 20501141 (4) Former smoker Current Visit: No Status: Acute Code(s): Z87.891 - PERSONAL HISTORY OF NICOTINE DEPENDENCE SNOMED Code(s): 1786888 (5) Hypertension Current Visit: No Status: Acute Code(s): I10 - ESSENTIAL (PRIMARY) HYPERTENSION SNOMED Code(s): 22489945 Plan: Continue aztreonam. Check CBC and CMP in a.m. Dr. Shaw covering for the weekend. Prognosis is improving as the patient's stability continues. Continue son Medrol with antibiotic treatment. Atrial fibrillation-stable. Time with Patient: Less than 30
[2018-07-05] MEDS: IPRATROPIUM-ALBUTEROL 3 ML NEB INHALATION SCH ×4 (08:00→19:31)
[2018-07-05] MEDS: methylPREDNISolone SOD SUCCI 40 MG/ML 1 ML VIAL IV SCH ×2 (08:17→16:21)
[2018-07-05] MEDS: PANTOPRAZOLE 40 MG TABLET PO SCH (08:17)
[2018-07-05] MEDS: FUROSEMIDE 40 MG TAB PO SCH (08:17)
[2018-07-05] MEDS: CLOPIDOGREL 75 MG TAB PO SCH (08:17)
[2018-07-05] MEDS: CITALOPRAM HYDROBROMIDE 10 MG TAB PO SCH (08:17)
[2018-07-05] MEDS: METOPROLOL TARTRATE 50 MG TAB PO SCH ×2 (08:17→22:02)
[2018-07-05] MEDS: AZTREONAM 2 GM in SODIUM CHLORIDE 0.9% 100 ML IVPB SCH ×2 (08:17→16:32)
[2018-07-05] MEDS: LISINOPRIL 2.5 MG TAB PO SCH (08:17)
[2018-07-05 08:40] LABS: ALT 34 U/L (21-72); AST 21 U/L (17-59); Albumin 3.9 g/dL (3.5-5.0); Alkaline Phosphatase 69 U/L (38-126); Anion Gap 7 mmol/L; Blood Urea Nitrogen 15 mg/dL (9-20); Calcium 9.5 mg/dL (8.4-10.2); Carbon Dioxide 27 mmol/L (22-30); Chloride 105 mmol/L (98-107); Glucose 145 mg/dL (74-99); Potassium 4.6 mmol/L (3.5-5.1); Sodium 139 mmol/L (137-145); Total Bilirubin 1.5 mg/dL (0.2-1.3); Total Protein 6.6 g/dL (6.3-8.2)
[2018-07-05 08:45] LABS: HCT 39.1 % (39.0-53.0); MCH 29.5 pg (25.0-35.0); MCHC 33.1 g/dL (31.0-37.0); MCV 89.1 fL (80.0-100.0); Mean Platelet Volume 7.8; Platelet Count 180 k/uL (150-450); RBC 4.39 m/uL (4.30-5.90); RDW 14.1 % (11.5-15.5); WBC 5.6 k/uL (3.8-10.6)
[2018-07-05] MEDS ORDERED: NON-FORMULARY DRUG (Multivitamin [Men's Multi-Vitamin] 1 TAB) PO SCH (09:00)
[2018-07-05] MEDS ORDERED: NON-FORMULARY DRUG (Fish Oil/Dha/Epa [Fish Oil 1,200 Mg Fish Oil] 1 CAP) PO SCH (09:00)
[2018-07-05] MEDS ORDERED: LEVOFLOXACIN 750MG-D5W PMX 750 MG in DEXTROSE/WATER 1 150ML.BAG IVPB SCH (09:00)
--- NOTE | 2018-07-05 09:26 | XR ---
EXAMINATION TYPE: XR chest 2V DATE OF EXAM: 07/05/2018 COMPARISON: 07/04/2018 INDICATION: Pneumonia, pain left side TECHNIQUE: Frontal and lateral views of the chest are obtained. FINDINGS: The heart size is enlarged. The pulmonary vasculature is at upper limits of normal. Mild diffuse infiltrates in the left lower lung field. Correlate for atelectasis and pneumonia. Atypi rebecca pulmonary edema could be considered. IMPRESSION: 1. Mild left lower lobe infiltrate. Atelectasis, pneumonia, atypical pulmonary edema should be consid ered.
[2018-07-05] MEDS: HYDROcodone/APAP 5-325MG 1 EACH TAB PO PRN ×2 (11:10→22:13)
[2018-07-05 12:06] LABS: Creatine Kinase 89 U/L (55-170)
[2018-07-05 12:19] LABS: Creatine Kinase MB 1.3 ng/mL (0.0-2.4); Troponin I <0.012 ng/mL (0.000-0.034)
[2018-07-05] MEDS ORDERED: FUROSEMIDE 20 MG TAB PO SCH (16:00)
[2018-07-05] MEDS: RIVAROXABAN 20 MG TAB PO SCH (16:21)
--- NOTE | 2018-07-05 16:56 | P.CNPUL ---
History of Present Illness Consult date: 07/05/18 Reason for consult: dyspnea History of present illness: This is a 53-year-old male patient who came into the hospital because of shortness of breath. I know Mr. Hare from the sleep clinic and I have diagnosed him having severe obstructive/central sleep apnea with an AHI of above 38. He was given CPAP therapy and he was seeing me in follow-up in sleep center regarding his problem. During his last encounter the sleep center he was telling me that she was having issues with his atrial fibrillation which has become an ongoing recurrent problems in addition to problems with coronary artery disease and mitral valve disease. The patient came into the hospital yesterday after he was having difficulties tolerating his CPAP. Overnight he became acutely short of breath. He had to pull out his CPAP machine. Subsequently he waited and he felt that he was getting progressively short of breath to the point where he was unable to breathe. This was a rather of an acute onset. He denied having any chest pain or pleurisy or hemoptysis. No fever chills or night sweats. No aspiration. No nausea or vomiting. No significant palpitations. He came into the emergency department and a chest x-ray was done which raises the concern for pneumonia and for that reason the patient was placed on accommodation of Levaquin and aztreonam and pulmonary consultation was requested. I reviewed the chest x-ray. There are some increased infiltrates bilaterally mainly in the left perihilar/lower lobe area. Nevertheless, the patient does not have any fever. No leukocytosis. His cardiac enzymes are negative. His BNP level was 1250. His heart rhythm is still in atrial fibrillation. In terms of his cardiac history, the patient presented initially to cardiology with increased shortness of breath. Subsequently the patient was found to have severe mitral regurgitation and coronary artery disease. His cardiac catheterization was done on 12/24/2017 and the patient was found to have 70% lesion in the RCA and another 40% lesion in the mid LAD after the diagonal branch. Based on his Results, the patient underwent stenting of the RCA that was quite successful. He underwent cardioversion initially on 12/03/2017 that was successful for short period of time and subsequently his atrial fibrillation recurs. He is DYLAN that was done on 12/24/2017 showed moderate degree of mitral regurgitation. The left ventricle end-diastolic pressure was noted to be normal. No evidence of any intracardiac shunting was noted. Subsequently, he had another hospitalization in April 2018 for increased shortness of breath and PND and palpitation. He was nature fibrillation with rapid ventricular response. He was treated and he was discharged home in the echocardiogram that was done at the same time showed again moderate degree of mitral regurgitation, RV was dilated, aortic root was dilated at 4.1 cm in size and the LAD was severely dilated more than 40 and miles per meter squared. Subsequently, the patient another hospitalization on 06/16/2018 for increased shortness of breath. He underwent a repeat DYLAN that showed again mitral regurgitation and the patient was also found to have a clot in the left atrial appendage. Nevertheless the mitral valve inspection showed moderate to severe regurgitation without evidence of any flail valve. Review of Systems Constitutional: Reports daytime sleepiness, Reports fatigue, Reports lethargy Eyes: denies blurred vision, denies bulging eye, denies decreased vision, denies diplopia Ears: deny: decreased hearing, ear discharge, earache, tinnitus Ears, nose, mouth and throat: Denies headache, Denies sore throat Cardiovascular: Reports decreased exercise tolerance, Reports dyspnea on exertion, Reports irregular heart beat, Reports palpitations, Reports rapid heart beat Respiratory: Reports dyspnea Genitourinary: Reports as per HPI Musculoskeletal: Denies myalgias Musculoskeletal: absent: ankle pain, ankle stiffness, ankle swelling Integumentary: Denies pruritus, Denies rash Neurological: Reports as per HPI Psychiatric: Reports as per HPI Endocrine: Reports as per HPI Hematologic/Lymphatic: Reports as per HPI Allergic/Immunologic: Reports as per HPI Past Medical History Past Medical History: Atrial Fibrillation, Coronary Artery Disease (CAD), Heart Failure, GERD/Reflux, Hyperlipidemia, Hypertension, Sleep Apnea/CPAP/BIPAP Additional Past Medical History / Comment(s): Pt recently admitted to [facility] on with Afib RVR and had DYLAN that showed ventricular thrombus-on xarelto, Other HX: mitral valve regurgitation, pleural effusion, diverticular disease, past R shoulder injury/chronic pain. History of Any Multi-Drug Resistant Organisms: None Reported Past Surgical History: Appendectomy, Heart Catheterization With Stent Additional Past Surgical History / Comment(s): 06/17/18 DYLAN, cardioversions x 2, PCI with stent to RCA, colonoscopy, EGD Past Anesthesia/Blood Transfusion Reactions: No Reported Reaction Date of Last Stent Placement:: 01/22/18 Smoking Status: Former smoker - Past Family History Father Family Medical History: Congestive Heart Failure (CHF) Additional Family Medical History / Comment(s): Father from CHF at the age of 68yrs. Mother Family Medical History: No Reported History Additional Family Medical History / Comment(s): Mother at the age of 62 or 63 yrs from myasthenia gravis. Medications and Allergies Home Medications Medication Instructions Recorded Confirmed Type Multivitamin [Men's Multi-Vitamin] 1 tab PO DAILY 01/22/14 07/04/18 History Fish Oil/Dha/Epa [Fish Oil 1,200 1 cap PO DAILY 11/06/17 07/04/18 History mg Fish Oil] Atorvastatin [Lipitor] 80 mg PO HS #90 tab 01/24/18 07/04/18 Rx Nitroglycerin Sl Tabs [Nitrostat] 0.4 mg SUBLINGUAL Q5M PRN #25 tab 01/24/18 Rx Citalopram Hydrobromide [CeleXA] 10 mg PO DAILY 04/14/18 07/04/18 History Omeprazole 20 mg PO DAILY 04/14/18 07/04/18 History Clopidogrel [Plavix] 75 mg PO DAILY 05/08/18 07/04/18 History Metoprolol Tartrate [Lopressor] 50 mg PO BID 05/08/18 07/04/18 History Furosemide [Lasix] 40 mg PO DAILY 06/14/18 07/04/18 History Lisinopril [Zestril] 2.5 mg PO DAILY 30 Days #30 tab 06/16/18 07/04/18 Rx Furosemide [Lasix] 20 mg PO DAILY@1600 07/04/18 07/04/18 History Rivaroxaban [Xarelto] 20 mg PO DAILY@1600 07/04/18 07/04/18 History Umeclidinium Brm/Vilanterol Tr 1 puff INHALATION RT-DAILY 07/04/18 07/04/18 History [Anoro Ellipta 62.5-25 Mcg INH] Allergies Allergy/AdvReac Type Severity Reaction Status Date / Time Penicillins Allergy Unknown Verified 07/04/18 08:46 Childhood Physical Exam Vitals: Vital Signs Temp Pulse Pulse Resp BP Pulse Ox 07/05/18 16:20 81 16 07/05/18 16:12 84 16 10/26/18 14:15 97.5 F L 101 H 16 109/75 97 07/05/18 11:57 75 07/05/18 11:47 74 07/05/18 08:11 73 07/05/18 08:01 72 07/05/18 06:25 97.9 F 84 20 110/65 97 07/04/18 22:35 97.6 F 73 20 100/63 98 07/04/18 20:11 70 07/04/18 19:58 70 97 Intake and Output 07/05/18 07/05/18 07/05/18 06:59 14:59 22:59 Intake Total 100 Balance 100 Intake: Oral 100 Other: # Voids 1 2 Gen. appearance, comfortable moderate degree of respiratory distress even at rest. Head exam was generally normal. There was no scleral icterus or corneal arcus. Mucous membranes were moist. Neck was supple and without jugular venous distension, thyromegaly, or carotid bruits. Carotids were easily palpable bilaterally. There was no adenopathy. Lungs sounds are diminished. Crackles in lung bases bilaterally. No wheezes or rhonchi. Heart sounds are irregular, there is accentuation of the second heart sound. There is a systolic ejection murmur grade 4/6 heard throughout the precordium. No murmurs mainly heard over the left lateral sternal border. Irregular S1 and S2. Abdominal exam revealed normal bowel sounds. The abdomen was soft, non-tender, and without masses, organomegaly, or appreciable enlargement of the abdominal aorta. Examination of the extremities revealed easily palpable radial, femoral and pedal pulses. There was no cyanosis, clubbing or edema. Examination of the skin revealed no evidence of significant rashes, suspicious appearing nevi or other concerning lesions. Neurologically awake and alert and there is no focal neurological deficit. Results - Laboratory Findings CBC and BMP: 07/05/18 07:56 07/05/18 07:56 PT/INR, D-dimer PT 10.1 sec (9.0-12.0) 07/04/18 09:00 INR 1.0 (<1.2) 07/04/18 09:00 Abnormal lab findings: Abnormal Labs 07/04/18 07/05/18 09:00 07:56 Glucose 113 H 145 H Total Bilirubin 1.6 H 1.5 H - Diagnostic Findings Chest x-ray: image reviewed Assessment and Plan Plan: Assessment 1 acute dyspnea, along with history of chronic exertional dyspnea, orthopnea and recurrent hospitalization for respiratory distress. In my opinion, the bases shortness of breath originating from heart disease. Specifically, the patient has moderate to severe mitral regurgitation which probably is causing episodic symptoms of heart failure in the setting of atrial fibrillation, chronic. I highly doubt that the patient is an underlying pneumonia. He is afebrile. No leukocytosis. There acute presentation also does not favor pneumonia and favors mainly valvular heart disease specifically mitral valve disease which has been already confirmed the patient's previous evaluation previous echocardiogram findings. Furthermore, the patient denies any significant improvement in his shortness of breath with antibiotic treatment. 2 coronary artery disease with previous stenting of RCA. The patient has nonocclusive 40% lesion in the mid LAD. 3 chronic atrial fibrillation 4 blood clot within the left atrial appendage 5 moderate severe mitral regurgitation 6 sleep apnea a combination of obstructive and central. The presence of central apnea also goes along with his diagnosis of valvular heart disease and atrial fibrillation. The patient on CPAP at a pressure of 9 cm of water. 7 previous non-successful cardioversion regarding atrial fibrillation 8 hypertension 9 diverticular disease 10 degenerative arthritis Plan I do not see the need for aggressive antibiotic treatment. Discontinue the aztreonam. Switch Levaquin to oral. Complete a five-day course of Levaquin. Stop the IV Solu Medrol. Consult cardiology regarding his chronic A. fib and valvular heart disease. He may benefit from additional diuretics other than his oral Lasix. I will discuss this with the cardiology will make further recommendations. It may be reasonable to support this patient to have a cardiothoracic evaluation regarding his mitral valve regurgitation for any possible surgical repair/interventional mitral valve leak.
[2018-07-05] MEDS: ATORVASTATIN 80 MG TAB PO SCH (22:02)
[2018-07-05] MEDS: ZOLPIDEM 5 MG TAB PO PRN (22:13)
[2018-07-06] MEDS: IPRATROPIUM-ALBUTEROL 3 ML NEB INHALATION SCH ×4 (07:17→19:18)
[2018-07-06 08:55] LABS: Anion Gap 8 mmol/L; Blood Urea Nitrogen 15 mg/dL (9-20); Calcium 9.8 mg/dL (8.4-10.2); Carbon Dioxide 29 mmol/L (22-30); Chloride 103 mmol/L (98-107); Glucose 135 mg/dL (74-99); Potassium 4.3 mmol/L (3.5-5.1); Sodium 140 mmol/L (137-145)
[2018-07-06] MEDS: CLOPIDOGREL 75 MG TAB PO SCH (09:04)
[2018-07-06] MEDS: CITALOPRAM HYDROBROMIDE 10 MG TAB PO SCH (09:04)
[2018-07-06] MEDS: LISINOPRIL 2.5 MG TAB PO SCH (09:04)
[2018-07-06] MEDS: METOPROLOL TARTRATE 50 MG TAB PO SCH ×2 (09:04→20:17)
[2018-07-06] MEDS: FUROSEMIDE 40 MG TAB PO SCH (09:04)
[2018-07-06] MEDS: PANTOPRAZOLE 40 MG TABLET PO SCH (09:05)
[2018-07-06] MEDS: LEVOFLOXACIN 750 MG TAB PO SCH (09:05)
[2018-07-06] MEDS: HYDROcodone/APAP 5-325MG 1 EACH TAB PO PRN ×2 (12:33→20:17)
[2018-07-06] MEDS: FUROSEMIDE 10 MG/ML 4 ML VIAL IV SCH ×2 (13:36→21:43)
--- NOTE | 2018-07-06 14:57 | P.PN ---
Subjective Progress Note Date: 07/06/18 Principal diagnosis: Dyspnea, multifactorial in a patient known to have moderate to severe mitral regurgitation, atrial fibrillation. This is a 53-year-old male patient who came into the hospital because of shortness of breath. I know Mr. Hare from the sleep clinic and I have diagnosed him having severe obstructive/central sleep apnea with an AHI of above 38. He was given CPAP therapy and he was seeing me in follow-up in sleep center regarding his problem. During his last encounter the sleep center he was telling me that she was having issues with his atrial fibrillation which has become an ongoing recurrent problems in addition to problems with coronary artery disease and mitral valve disease. The patient came into the hospital yesterday after he was having difficulties tolerating his CPAP. Overnight he became acutely short of breath. He had to pull out his CPAP machine. Subsequently he waited and he felt that he was getting progressively short of breath to the point where he was unable to breathe. This was a rather of an acute onset. He denied having any chest pain or pleurisy or hemoptysis. No fever chills or night sweats. No aspiration. No nausea or vomiting. No significant palpitations. He came into the emergency department and a chest x-ray was done which raises the concern for pneumonia and for that reason the patient was placed on accommodation of Levaquin and aztreonam and pulmonary consultation was requested. I reviewed the chest x-ray. There are some increased infiltrates bilaterally mainly in the left perihilar/lower lobe area. Nevertheless, the patient does not have any fever. No leukocytosis. His cardiac enzymes are negative. His BNP level was 1250. His heart rhythm is still in atrial fibrillation. In terms of his cardiac history, the patient presented initially to cardiology with increased shortness of breath. Subsequently the patient was found to have severe mitral regurgitation and coronary artery disease. His cardiac catheterization was done on 12/24/2017 and the patient was found to have 70% lesion in the RCA and another 40% lesion in the mid LAD after the diagonal branch. Based on his Results, the patient underwent stenting of the RCA that was quite successful. He underwent cardioversion initially on 12/03/2017 that was successful for short period of time and subsequently his atrial fibrillation recurs. He is DYLAN that was done on 12/24/2017 showed moderate degree of mitral regurgitation. The left ventricle end-diastolic pressure was noted to be normal. No evidence of any intracardiac shunting was noted. Subsequently, he had another hospitalization in April 2018 for increased shortness of breath and PND and palpitation. He was nature fibrillation with rapid ventricular response. He was treated and he was discharged home in the echocardiogram that was done at the same time showed again moderate degree of mitral regurgitation, RV was dilated, aortic root was dilated at 4.1 cm in size and the LAD was severely dilated more than 40 and miles per meter squared. Subsequently, the patient another hospitalization on 06/16/2018 for increased shortness of breath. He underwent a repeat DYLAN that showed again mitral regurgitation and the patient was also found to have a clot in the left atrial appendage. Nevertheless the mitral valve inspection showed moderate to severe regurgitation without evidence of any flail valve. The patient is seen again today 07/06/2018 in follow-up on the regular medical floor. He is currently awake and alert in no acute distress. He does have dyspnea on minimal exertion. He is maintaining good O2 saturations in the 90s on 2 L/m per nasal cannula. He's been afebrile. Hemodynamically stable. Blood culture reveals no growth to date. Sputum culture is pending. Creatinine 0.69. He remains on DuoNeb inhalations and Levaquin. Continued on Xarelto for anticoagulant. Objective - Vital Signs Vital signs: Vital Signs Temp 97.4 F L 07/06/18 06:26 Pulse 80 07/06/18 11:16 Resp 17 07/06/18 06:26 BP 112/75 07/06/18 06:26 Pulse Ox 95 07/06/18 10:08 Intake & Output 07/05/18 07/06/18 07/06/18 18:59 06:59 18:59 Weight 114.4 kg Other: # Voids 2 1 1 - Exam Gen. appearance, comfortable moderate degree of respiratory distress even at rest. Head exam was generally normal. There was no scleral icterus or corneal arcus. Mucous membranes were moist. Neck was supple and without jugular venous distension, thyromegaly, or carotid bruits. Carotids were easily palpable bilaterally. There was no adenopathy. Lungs sounds are diminished. Crackles in lung bases bilaterally. No wheezes or rhonchi. Heart sounds are irregular, there is accentuation of the second heart sound. There is a systolic ejection murmur grade 4/6 heard throughout the precordium. No murmurs mainly heard over the left lateral sternal border. Irregular S1 and S2. Abdominal exam revealed normal bowel sounds. The abdomen was soft, non-tender, and without masses, organomegaly, or appreciable enlargement of the abdominal aorta. Examination of the extremities revealed easily palpable radial, femoral and pedal pulses. There was no cyanosis, clubbing or edema. Examination of the skin revealed no evidence of significant rashes, suspicious appearing nevi or other concerning lesions. Neurologically awake and alert and there is no focal neurological deficit. - Labs CBC & Chem 7: 07/05/18 07:56 07/06/18 08:14 Labs: Abnormal Lab Results - Last 24 Hours (Table) 07/06/18 Range/Units 08:14 Glucose 135 H (74-99) mg/dL Microbiology - Last 24 Hours (Table) 07/04/18 10:10 Blood Culture - Preliminary Blood No Growth after 48 hours 07/05/18 08:00 Gram Stain - Preliminary Sputum Assessment and Plan Assessment: Assessment 1 acute dyspnea, along with history of chronic exertional dyspnea, orthopnea and recurrent hospitalization for respiratory distress. In my opinion, the bases shortness of breath originating from heart disease. Specifically, the patient has moderate to severe mitral regurgitation which probably is causing episodic symptoms of heart failure in the setting of atrial fibrillation, chronic. I highly doubt that the patient is an underlying pneumonia. He is afebrile. No leukocytosis. There acute presentation also does not favor pneumonia and favors mainly valvular heart disease specifically mitral valve disease which has been already confirmed the patient's previous evaluation previous echocardiogram findings. Furthermore, the patient denies any significant improvement in his shortness of breath with antibiotic treatment. 2 coronary artery disease with previous stenting of RCA. The patient has nonocclusive 40% lesion in the mid LAD. 3 chronic atrial fibrillation 4 blood clot within the left atrial appendage 5 moderate severe mitral regurgitation 6 sleep apnea a combination of obstructive and central. The presence of central apnea also goes along with his diagnosis of valvular heart disease and atrial fibrillation. The patient on CPAP at a pressure of 9 cm of water. 7 previous non-successful cardioversion regarding atrial fibrillation 8 hypertension 9 diverticular disease 10 degenerative arthritis Plan The patient was seen and evaluated by Dr. Garcia. He did go ahead and initiate Lasix 40 mg IV push every 12 hours. We will transfer the patient over to the selective care unit. The patient does have moderate to severe mitral regurgitation with chronic atrial fibrillation, and atrial clot. Anticoagulated with Xarelto. His dyspnea is mostly related to his cardiac status. We will continue to follow and make further recommendations based on his clinical status. I, the cosigning physician, performed a history & physical examination of the patient. Lungs sounds with crackles in the bilateral posterior bases. Maintaining good O2 saturations in the 90s on room air. I discussed the assessment and plan of care with my nurse practitioner, Anne Mata. I attest to the above note as dictated by her.
[2018-07-06] MEDS: RIVAROXABAN 20 MG TAB PO SCH (15:30)
--- NOTE | 2018-07-06 16:55 | P.PN ---
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 the pt is a pleasant 53 yo M with pmh of a fib with left appendage thrombuosis on xarelto , who presents with left side chest pain ,and dyspnea of 1-2 days duration . the chest pain is sharp , non radiating ,got worse with cough but not with deep inspiration. associated with some cough and some colored phlegm. pt has been followed up by pulmonary team , mostly s/s related to cardiac. pt is on Levaquin for pna, and Lasix is been increased. dc steroid. cardiology team is been consulted. CBC and bmp unremarkable. .CXR: mild LLL pna. echo : normal LV systolic function but mod-severe MR Objective - Vital Signs Vital signs: Vital Signs Temp 97.7 F 07/06/18 14:53 Pulse 68 07/06/18 16:07 Resp 17 07/06/18 15:06 BP 127/87 07/06/18 14:53 Pulse Ox 98 07/06/18 15:55 Intake & Output 07/05/18 07/06/18 07/06/18 18:59 06:59 18:59 Weight 114.4 kg Other: # Voids 2 1 1 - Exam GENERAL: The patient is alert and oriented x3, not in any acute distress. Well developed, well nourished. HEENT: Pupils are round and equally reacting to light. EOMI. No scleral icterus. No conjunctival pallor. Normocephalic, atraumatic. No pharyngeal erythema. No thyromegaly. CARDIOVASCULAR: S1 and S2 present. No murmurs, rubs, or gallops. -PULMONARY: Chest is clear to auscultation, no wheezing or crackles. pt is tachypneic ABDOMEN: Soft, nontender, nondistended, normoactive bowel sounds. No palpable organomegaly. MUSCULOSKELETAL: No joint swelling or deformity. EXTREMITIES: No cyanosis, clubbing, or pedal edema. NEUROLOGICAL: Gross neurological examination did not reveal any focal deficits. SKIN: No rashes. - Labs CBC & Chem 7: 07/05/18 07:56 07/06/18 08:14 Labs: Abnormal Lab Results - Last 24 Hours (Table) 07/06/18 Range/Units 08:14 Glucose 135 H (74-99) mg/dL Microbiology - Last 24 Hours (Table) 07/04/18 10:10 Blood Culture - Preliminary Blood No Growth after 48 hours 07/05/18 08:00 Gram Stain - Preliminary Sputum Assessment and Plan Assessment: acute dyspnea, multifactorial, cardiac and pulmonary atypical LLL pna, vs viral with pleurisy chronic a fib on xarelto left atrial appendage thrombosis Plan: continue with the same treatment , continue with symptomatic treatment , resume home medication , monitor lytes and vitals including glucose , c/w diuretic, cardiology consult is called. pulmonary disease consult is appreciated . c/w same antibioitc . GI and DVT prophylaxis , further recommendation based upon pt clinical course and progress DVT prophylaxis xarelto GI prophylaxis pepcid prognosis is guarged will resume the care of the pt this sunday
--- NOTE | 2018-07-06 18:08 | CONS ---
CONSULTATION Mr. Hare is a 53-year-old male who is followed on a regular basis with Dr. Perry Valles who presented with symptoms of dyspnea. He has a known history of atrial fibrillation status post cardioversion with recurrent atrial fibrillation. He also has a history of coronary disease and has underwent a repeat cardiac catheterization study in December 2017 and at that time was found to have a proximal mid right coronary artery of 70%. He subsequently underwent transesophageal echocardiogram performed in December that showed moderate mitral regurgitation. His left ventricular size was normal. He has a history of obstructive sleep apnea and he became quite dyspneic that persisted. Yesterday, he had some cough and came into the emergency room and subsequently admitted. He has some cough as noted. He has wheezing, but no dizziness or palpitation. He is unaware of the atrial fibrillation. He has some chest discomfort on the left side of the chest. The discomfort is somewhat persistent. Earlier this month, he was readmitted with recurrent atrial fibrillation, underwent repeat transesophageal echocardiogram that showed a left atrial appendage thrombus with moderate severe posteriorly directed mitral regurgitation. The patient has no clear PND orthopnea and no peripheral edema. No dizziness or syncope. Following his cardiac catheterization in December, he was admitted to the hospital in January and underwent stenting of the right coronary artery following orbital atherectomy. The patient has underwent the sleep study recently and was found to have obstructive sleep apnea as well as central apnea. His coronary risk factors remarkable for a history of hypertension, hyperlipidemia. He is a nondiabetic and nonsmoker. MEDICATIONS: Include Plavix 75 mg daily, Xarelto 20 mg daily, metoprolol tartrate 50 mg twice a day, Zestril 2.5 mg daily, Lasix, Citalopram, Lipitor 80 mg daily and Ellipta. REVIEW OF SYSTEMS: RESPIRATORY system: He has history of chronic obstructive lung disease, history of recent cough and history of obstructive sleep apnea. GI system: No recent GI bleeding. No peptic ulcer disease. system: No dysuria or hematuria. Nervous system: No stroke or seizure. PHYSICAL EXAMINATION: He is a 53-year-old male, alert, oriented, in no apparent distress. Blood pressure 127/80 with a heart rate in the 70s. HEAD: Normocephalic. Eyes: Sclerae anicteric. Neck: No bruit. Lungs with scattered wheezes with decreased air exchange. Heart: Irregularly, irregular S1, S2. No S3 with a holosystolic murmur in the apex radiating to the axilla. No rub. ABDOMEN: Soft, nontender. No organomegaly. Extremities trace edema. LAB DATA: Lab data revealed troponin less than 0.012 for 3 samples. NT proBNP of 1770. BUN and creatinine 15 and 0.69. Potassium 4.3. EKG revealed atrial fibrillation with incomplete right bundle branch block and nonspecific ST-T wave changes. Chest x-ray raised the question of infiltrate, although most likely it does not appear to be an infectious process. IMPRESSION: 1. Acute dyspnea, probably combination of chronic obstructive pulmonary disease exacerbation on top of his mitral regurgitation. 2. Chronic persistent atrial fibrillation that failed cardioversion. 3. Coronary artery disease with stenting of the right coronary artery. 4. Moderate severe mitral regurgitation. 5. Obstructive sleep apnea with central sleep apnea. 6. Hypertension. 7. Hyperlipidemia. RECOMMENDATION: From the cardiac standpoint, we will continue present therapy. Once the patient is stabilized, he will need to be re-evaluated regarding the issue of his mitral valve and make a decision if the mitral valve needs to be repaired since it is playing a big role in his symptoms and the likelihood of restoring sinus mechanism and maintaining sinus mechanism in the setting of significant mitral regurgitation will be quite low. I have discussed those findings with the patient in detail. Thank you for this consult. We will follow with you. MMODL / IJN: [id number] /
[2018-07-06] MEDS: ATORVASTATIN 80 MG TAB PO SCH (20:17)
[2018-07-07] MEDS: PANTOPRAZOLE 40 MG TABLET PO SCH (06:02)
[2018-07-07 06:42] LABS: Anion Gap 9 mmol/L; Blood Urea Nitrogen 22 mg/dL (9-20); Calcium 9.4 mg/dL (8.4-10.2); Carbon Dioxide 30 mmol/L (22-30); Chloride 101 mmol/L (98-107); Glucose 101 mg/dL (74-99); Potassium 4.1 mmol/L (3.5-5.1); Sodium 140 mmol/L (137-145)
[2018-07-07] MEDS: METOPROLOL TARTRATE 50 MG TAB PO SCH ×2 (07:52→20:06)
[2018-07-07] MEDS: LEVOFLOXACIN 750 MG TAB PO SCH (07:52)
[2018-07-07] MEDS: CITALOPRAM HYDROBROMIDE 10 MG TAB PO SCH (07:52)
[2018-07-07] MEDS: CLOPIDOGREL 75 MG TAB PO SCH (07:52)
[2018-07-07] MEDS: LISINOPRIL 2.5 MG TAB PO SCH (07:53)
[2018-07-07] MEDS: FUROSEMIDE 10 MG/ML 4 ML VIAL IV SCH ×2 (07:53→20:06)
[2018-07-07] MEDS: IPRATROPIUM-ALBUTEROL 3 ML NEB INHALATION SCH ×4 (09:04→21:21)
--- NOTE | 2018-07-07 11:20 | P.PN ---
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 the pt is a pleasant 53 yo M with pmh of a fib with left appendage thrombuosis on xarelto , who presents with left side chest pain ,and dyspnea of 1-2 days duration . the chest pain is sharp , non radiating ,got worse with cough but not with deep inspiration. associated with some cough and some colored phlegm. pt has been followed up by pulmonary team , mostly s/s related to cardiac. pt is on Levaquin for pna, and Lasix is been increased. dc steroid. cardiology team is been consulted. CBC and bmp unremarkable. .CXR: mild LLL pna. echo : normal LV systolic function but mod-severe MR 06/29/1818 Patient dyspnea is improving. He still have some tachypnea and pulmonary congestion on exam. No chest pain. He still have some coughing with greenish phlegm. Plan of care as discussed with the patient in details. Patient has recurrent admissions and this is almost the fourth admission for fluid overload since October as per patient, mostly related to his mitral valve disease. Cardiology team R following the case and the place and the planned for long- term care regarding his follow-up disease. Patient is aware of this. Vitals are stable. Labs reviewed and are unremarkable. ProBNP is improving gradually from [address] Valderrama will resume the care of the patient tomorrow Objective - Vital Signs Vital signs: Vital Signs Temp 96.8 F L 07/07/18 07:51 Pulse 78 07/07/18 08:00 Resp 17 07/07/18 08:00 BP 120/71 07/07/18 07:51 Pulse Ox 96 07/07/18 07:51 Intake & Output 07/06/18 07/07/18 07/07/18 18:59 06:59 18:59 Intake Total 240 Output Total 1550 1200 Balance -1550 -960 Weight 114.4 kg 111.3 kg Intake: Oral 240 Output: Urine 1550 1200 Other: Voiding Method Toilet Toilet # Voids 1 - Exam GENERAL: The patient is alert and oriented x3, not in any acute distress. Well developed, well nourished. HEENT: Pupils are round and equally reacting to light. EOMI. No scleral icterus. No conjunctival pallor. Normocephalic, atraumatic. No pharyngeal erythema. No thyromegaly. CARDIOVASCULAR: S1 and S2 present. No murmurs, rubs, or gallops. -PULMONARY: Chest is clear to auscultation, no wheezing or crackles. pt is tachypneic ABDOMEN: Soft, nontender, nondistended, normoactive bowel sounds. No palpable organomegaly. MUSCULOSKELETAL: No joint swelling or deformity. EXTREMITIES: No cyanosis, clubbing, or pedal edema. NEUROLOGICAL: Gross neurological examination did not reveal any focal deficits. SKIN: No rashes. - Labs CBC & Chem 7: 07/05/18 07:56 07/07/18 05:29 Labs: Abnormal Lab Results - Last 24 Hours (Table) 07/07/18 Range/Units 05:29 BUN 22 H (9-20) mg/dL Glucose 101 H (74-99) mg/dL Microbiology - Last 24 Hours (Table) 07/05/18 08:00 Gram Stain - Final Sputum Sputum Culture - Final 07/04/18 10:10 Blood Culture - Preliminary Blood No Growth after 48 hours Assessment and Plan Assessment: acute dyspnea, multifactorial, cardiac and pulmonary atypical LLL pna, vs viral with pleurisy chronic a fib on xarelto left atrial appendage thrombosis Plan: continue with the same treatment , continue with symptomatic treatment , resume home medication , monitor lytes and vitals including glucose , c/w diuretic, cardiology consult is called. pulmonary disease consult is appreciated . c/w same antibioitc . GI and DVT prophylaxis , further recommendation based upon pt clinical course and progress DVT prophylaxis xarelto GI prophylaxis pepcid prognosis is guarged will resume the care of the pt this sunday
--- NOTE | 2018-07-07 14:41 | P.PN ---
Subjective This is a pleasant 53-year-old male past medical history significant for persistent atrial fibrillation status post cardioversion, coronary artery disease, moderate mitral regurgitation, hypertension and dyslipidemia. He presented to the hospital with symptoms of shortness of breath and pleuritic- type chest discomfort. He has been started on IV diuretics. The previous 24 hours he has diuresed quite well with a negative fluid balance of 1500 mL's. He continues to have pleuritic chest discomfort in the left thoracic region and sometimes in the right anterior chest wall. He states his breathing has greatly improved. He denies dizziness or palpitations. Blood pressure 135/84 heart rate 75 afebrile maintaining oxygen saturation on room air. Laboratory data reviewed, sodium 140, potassium 4.1, creatinine 0.91. He is currently maintained on atorvastatin 80 mg daily, Plavix 75 mg daily, Lasix 40 mg IV twice a day, lisinopril 2.5 mg daily, Lopressor 50 mg twice a day and Xarelto 20 mg daily. GENERAL: Well-appearing, well-nourished and in no acute distress. NECK: Supple without JVD or thyromegaly. LUNGS: Bibasilar rales noted, no wheezes or rhonchi. Respiration equal and unlabored. HEART: Irregular rate and rhythm with holosystolic murmur heard at the apex, rubs or gallops. S1 and S2 heard. EXTREMITIES: Normal range of motion, no edema. No clubbing or cyanosis. Peripheral pulses intact. ASSESSMENT Acute dyspnea secondary to mitral regurgitation Chronic persistent atrial fibrillation status post failed cardioversion Coronary artery disease, stenting to the RCA Moderate to severe mitral regurgitation Obstructive sleep apnea Hypertension Dyslipidemia PLAN Continue the current medical regimen. He would benefit from another 24 hours of IV Lasix. Once patient is stabilized he will need to be reevaluated regarding his mitral valve and decision will need to be made regarding repair. 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 Valles. Follow kidney function and electrolytes daily. Further recommendations to follow based upon clinical course. Nurse Practitioner note has been reviewed, I agree with a documented findings and plan of care. Patient was seen and examined. Objective - Vital Signs Vital signs: Vital Signs Temp 96.8 F L 07/07/18 07:51 Pulse 76 07/07/18 12:14 Resp 17 07/07/18 11:35 BP 135/84 07/07/18 11:35 Pulse Ox 97 07/07/18 12:04 Intake & Output 07/06/18 07/07/18 07/07/18 18:59 06:59 18:59 Intake Total 480 Output Total 1550 1200 Balance -1550 -720 Weight 114.4 kg 111.3 kg Intake: Oral 480 Output: Urine 1550 1200 Other: Voiding Method Toilet Toilet # Voids 1 - Labs CBC & Chem 7: 07/05/18 07:56 07/07/18 05:29 Labs: Abnormal Lab Results - Last 24 Hours (Table) 07/07/18 Range/Units 05:29 BUN 22 H (9-20) mg/dL Glucose 101 H (74-99) mg/dL Microbiology - Last 24 Hours (Table) 07/04/18 10:10 Blood Culture - Preliminary Blood No Growth after 72 hours 07/05/18 08:00 Gram Stain - Final Sputum Sputum Culture - Final
[2018-07-07] MEDS: HYDROcodone/APAP 5-325MG 1 EACH TAB PO PRN (15:17)
[2018-07-07] MEDS: RIVAROXABAN 20 MG TAB PO SCH (15:17)
--- NOTE | 2018-07-07 15:19 | P.PN ---
Subjective Progress Note Date: 07/07/18 This is a 53-year-old male patient who came into the hospital because of shortness of breath. I know Mr. Hare from the sleep clinic and I have diagnosed him having severe obstructive/central sleep apnea with an AHI of above 38. He was given CPAP therapy and he was seeing me in follow-up in sleep center regarding his problem. During his last encounter the sleep center he was telling me that she was having issues with his atrial fibrillation which has become an ongoing recurrent problems in addition to problems with coronary artery disease and mitral valve disease. The patient came into the hospital yesterday after he was having difficulties tolerating his CPAP. Overnight he became acutely short of breath. He had to pull out his CPAP machine. Subsequently he waited and he felt that he was getting progressively short of breath to the point where he was unable to breathe. This was a rather of an acute onset. He denied having any chest pain or pleurisy or hemoptysis. No fever chills or night sweats. No aspiration. No nausea or vomiting. No significant palpitations. He came into the emergency department and a chest x-ray was done which raises the concern for pneumonia and for that reason the patient was placed on accommodation of Levaquin and aztreonam and pulmonary consultation was requested. I reviewed the chest x-ray. There are some increased infiltrates bilaterally mainly in the left perihilar/lower lobe area. Nevertheless, the patient does not have any fever. No leukocytosis. His cardiac enzymes are negative. His BNP level was 1250. His heart rhythm is still in atrial fibrillation. In terms of his cardiac history, the patient presented initially to cardiology with increased shortness of breath. Subsequently the patient was found to have severe mitral regurgitation and coronary artery disease. His cardiac catheterization was done on 12/24/2017 and the patient was found to have 70% lesion in the RCA and another 40% lesion in the mid LAD after the diagonal branch. Based on his Results, the patient underwent stenting of the RCA that was quite successful. He underwent cardioversion initially on 12/03/2017 that was successful for short period of time and subsequently his atrial fibrillation recurs. He is DYLAN that was done on 12/24/2017 showed moderate degree of mitral regurgitation. The left ventricle end-diastolic pressure was noted to be normal. No evidence of any intracardiac shunting was noted. Subsequently, he had another hospitalization in April 2018 for increased shortness of breath and PND and palpitation. He was nature fibrillation with rapid ventricular response. He was treated and he was discharged home in the echocardiogram that was done at the same time showed again moderate degree of mitral regurgitation, RV was dilated, aortic root was dilated at 4.1 cm in size and the LAD was severely dilated more than 40 and miles per meter squared. Subsequently, the patient another hospitalization on 06/16/2018 for increased shortness of breath. He underwent a repeat DYLAN that showed again mitral regurgitation and the patient was also found to have a clot in the left atrial appendage. Nevertheless the mitral valve inspection showed moderate to severe regurgitation without evidence of any flail valve. The patient is seen again today 07/06/2018 in follow-up on the regular medical floor. He is currently awake and alert in no acute distress. He does have dyspnea on minimal exertion. He is maintaining good O2 saturations in the 90s on 2 L/m per nasal cannula. He's been afebrile. Hemodynamically stable. Blood culture reveals no growth to date. Sputum culture is pending. Creatinine 0.69. He remains on DuoNeb inhalations and Levaquin. Continued on Xarelto for anticoagulant. On 07/07/2018, the patient was transferred to telemetry unit. He was also started on diuretics. He is producing adequate amount of urine output and the patient has put out more than 1500 mL of urine output over the past 18 hours. He is feeling less short of breath compared to yesterday. He remains in atrial fibrillation. His rate is controlled. On and off he has some atypical vague chest pain across the chest bilaterally. Currently is chest patient 3. The patient also has a stable renal function. He is tolerating diuretics well without any major difficulties. His antibiotic has been simplified to Levaquin although my overall suspicion for an underlying pneumonia is extremely low. Case was discussed with cardiology. His BNP level is being monitored on a regular basis and the patient's BNP level has declined Objective - Vital Signs Vital signs: Vital Signs Temp 96.8 F L 07/07/18 07:51 Pulse 76 07/07/18 12:14 Resp 17 07/07/18 14:40 BP 135/84 07/07/18 11:35 Pulse Ox 97 07/07/18 12:04 Intake & Output 07/06/18 07/07/18 07/07/18 18:59 06:59 18:59 Intake Total 480 Output Total 1550 1200 Balance -1550 -720 Weight 114.4 kg 111.3 kg Intake: Oral 480 Output: Urine 1550 1200 Other: Voiding Method Toilet Toilet # Voids 1 - Exam Gen. appearance, comfortable moderate degree of respiratory distress even at rest. Head exam was generally normal. There was no scleral icterus or corneal arcus. Mucous membranes were moist. Neck was supple and without jugular venous distension, thyromegaly, or carotid bruits. Carotids were easily palpable bilaterally. There was no adenopathy. Lungs sounds are diminished. Crackles in lung bases bilaterally. No wheezes or rhonchi. Heart sounds are irregular, there is accentuation of the second heart sound. There is a systolic ejection murmur grade 4/6 heard throughout the precordium. No murmurs mainly heard over the left lateral sternal border. Irregular S1 and S2. Abdominal exam revealed normal bowel sounds. The abdomen was soft, non-tender, and without masses, organomegaly, or appreciable enlargement of the abdominal aorta. Examination of the extremities revealed easily palpable radial, femoral and pedal pulses. There was no cyanosis, clubbing or edema. Examination of the skin revealed no evidence of significant rashes, suspicious appearing nevi or other concerning lesions. Neurologically awake and alert and there is no focal neurological deficit. - Labs CBC & Chem 7: 07/05/18 07:56 07/07/18 05:29 Labs: Abnormal Lab Results - Last 24 Hours (Table) 07/07/18 Range/Units 05:29 BUN 22 H (9-20) mg/dL Glucose 101 H (74-99) mg/dL Microbiology - Last 24 Hours (Table) 07/04/18 10:10 Blood Culture - Preliminary Blood No Growth after 72 hours 07/05/18 08:00 Gram Stain - Final Sputum Sputum Culture - Final Assessment and Plan Plan: Assessment 1 acute dyspnea, along with history of chronic exertional dyspnea, orthopnea and recurrent hospitalization for respiratory distress. In my opinion, the bases shortness of breath originating from heart disease. Specifically, the patient has moderate to severe mitral regurgitation which probably is causing episodic symptoms of heart failure in the setting of atrial fibrillation, chronic. I highly doubt that the patient is an underlying pneumonia. He is afebrile. No leukocytosis. There acute presentation also does not favor pneumonia and favors mainly valvular heart disease specifically mitral valve disease which has been already confirmed the patient's previous evaluation previous echocardiogram findings. Furthermore, the patient denies any significant improvement in his shortness of breath with antibiotic treatment. Based on all this, I discussed the case with cardiology. Removed the patient back to telemetry. He started on IV diuretics and IV Lasix and is feeling better as the patient is diuresing well. He is producing some urine output. He continues to improve clinically. 2 coronary artery disease with previous stenting of RCA. The patient has nonocclusive 40% lesion in the mid LAD. 3 chronic atrial fibrillation 4 blood clot within the left atrial appendage 5 moderate severe mitral regurgitation 6 sleep apnea a combination of obstructive and central. The presence of central apnea also goes along with his diagnosis of valvular heart disease and atrial fibrillation. The patient on CPAP at a pressure of 9 cm of water. 7 previous non-successful cardioversion regarding atrial fibrillation 8 hypertension 9 diverticular disease 10 degenerative arthritis Plan Continue diuretics for 24 hours. Clinically improving. Final decision regarding the mitral valve function will be done by cardiology. I asked the patient to get back his CPAP machine and this can be used during his hospital stay. He remains in atrial fibrillation. On anticoagulation. Previous total of 5-7 days course of Levaquin. As mentioned, his shortness of breath is probably cardiac in nature and there is no clear indication that patient has COPD or pneumonia on clinical grounds. He has responded nicely to diuretics.
[2018-07-07] MEDS: ATORVASTATIN 80 MG TAB PO SCH (20:06)
[2018-07-08] MEDS: PANTOPRAZOLE 40 MG TABLET PO SCH (06:17)
--- NOTE | 2018-07-08 08:26 | P.PN ---
Subjective Principal diagnosis: History of COPD atrial fibrillation. This is a continue progress note a 53-year-old white male essentially admitted for bilateral pneumonia. The patient still has some dyspnea on exertion. But no voiding difficulties. No sniffing nausea, vomiting or diarrhea. Pulmonology consult is pending. Objective - Vital Signs Vital signs: Vital Signs Temp 97.8 F 07/08/18 04:00 Pulse 80 07/08/18 04:00 Resp 18 07/08/18 04:00 BP 102/58 07/08/18 04:00 Pulse Ox 96 07/08/18 04:00 Intake & Output 07/07/18 07/08/18 07/08/18 18:59 06:59 18:59 Intake Total 720 720 Output Total 1800 2350 520 Balance -3475 -8969 -520 Weight 111.4 kg Intake: Oral 720 720 Output: Urine 1800 2350 520 Other: Voiding Method Toilet Urinal - EENT Eyes: Absent: abnormal pupil - Respiratory Respiratory: bilateral: rales - Cardiovascular Rhythm: irregularly irregular Heart sounds: normal: S1, S2 Abnormal Heart Sounds: Absent: S3 Gallop - Gastrointestinal General gastrointestinal: Present: soft. Absent: tenderness - Psychiatric Psychiatric: Present: A&O x's 3. Absent: appropriate affect - Labs CBC & Chem 7: 07/05/18 07:56 07/07/18 05:29 Labs: Microbiology - Last 24 Hours (Table) 07/04/18 10:10 Blood Culture - Preliminary Blood No Growth after 72 hours 07/05/18 08:00 Gram Stain - Final Sputum Sputum Culture - Final Assessment and Plan (1) Hospital-acquired pneumonia Current Visit: Yes Status: Acute Code(s): J18.9 - PNEUMONIA, UNSPECIFIED ORGANISM SNOMED Code(s): 018987311 (2) Atrial fibrillation Current Visit: No Status: Acute Code(s): I48.91 - UNSPECIFIED ATRIAL FIBRILLATION SNOMED Code(s): 18202608 (3) CAD (coronary artery disease) Current Visit: No Status: Acute Code(s): I25.10 - ATHSCL HEART DISEASE OF [place] CORONARY ARTERY W/O ANG PCTRS SNOMED Code(s): 38561880 (4) Former smoker Current Visit: No Status: Acute Code(s): Z87.891 - PERSONAL HISTORY OF NICOTINE DEPENDENCE SNOMED Code(s): 4334971 (5) Hypertension Current Visit: No Status: Acute Code(s): I10 - ESSENTIAL (PRIMARY) HYPERTENSION SNOMED Code(s): 30222766 Plan: This is a 53-year-old white male essentially admitted for pneumonia bilaterally with history of aortic valvulopathy. Patient has been transferred to a telemetry floor and is seemingly stable. He does complain of mild chest discomfort this morning. Otherwise no voiding difficulties. No significant nausea or vomiting. The patient will be continued on current regimen of treatment. Final decision as far as aortic valve will be made by cardiology. The patient is open to repair if necessary. Check CBC and CMP in a.m. See orders otherwise.
[2018-07-08] MEDS: LEVOFLOXACIN 750 MG TAB PO SCH (08:31)
[2018-07-08] MEDS: CITALOPRAM HYDROBROMIDE 10 MG TAB PO SCH (08:31)
[2018-07-08] MEDS: FUROSEMIDE 10 MG/ML 4 ML VIAL IV SCH ×2 (08:31→20:24)
[2018-07-08] MEDS: METOPROLOL TARTRATE 50 MG TAB PO SCH ×2 (08:31→20:24)
[2018-07-08] MEDS: CLOPIDOGREL 75 MG TAB PO SCH (08:31)
[2018-07-08] MEDS: LISINOPRIL 2.5 MG TAB PO SCH (08:31)
[2018-07-08 08:34] LABS: Anion Gap 6 mmol/L; Blood Urea Nitrogen 24 mg/dL (9-20); Calcium 9.8 mg/dL (8.4-10.2); Carbon Dioxide 33 mmol/L (22-30); Chloride 100 mmol/L (98-107); Glucose 107 mg/dL (74-99); Potassium 4.3 mmol/L (3.5-5.1); Sodium 139 mmol/L (137-145)
[2018-07-08] MEDS: IPRATROPIUM-ALBUTEROL 3 ML NEB INHALATION SCH ×4 (09:33→21:28)
[2018-07-08] MEDS: HYDROcodone/APAP 5-325MG 1 EACH TAB PO PRN (11:42)
--- NOTE | 2018-07-08 12:12 | P.PN ---
Subjective Progress Note Date: 07/08/18 Principal diagnosis: Acute dyspnea, related to severe mitral regurgitation This is a 53-year-old male patient who came into the hospital because of shortness of breath. I know Mr. Hare from the sleep clinic and I have diagnosed him having severe obstructive/central sleep apnea with an AHI of above 38. He was given CPAP therapy and he was seeing me in follow-up in sleep center regarding his problem. During his last encounter the sleep center he was telling me that she was having issues with his atrial fibrillation which has become an ongoing recurrent problems in addition to problems with coronary artery disease and mitral valve disease. The patient came into the hospital yesterday after he was having difficulties tolerating his CPAP. Overnight he became acutely short of breath. He had to pull out his CPAP machine. Subsequently he waited and he felt that he was getting progressively short of breath to the point where he was unable to breathe. This was a rather of an acute onset. He denied having any chest pain or pleurisy or hemoptysis. No fever chills or night sweats. No aspiration. No nausea or vomiting. No significant palpitations. He came into the emergency department and a chest x-ray was done which raises the concern for pneumonia and for that reason the patient was placed on accommodation of Levaquin and aztreonam and pulmonary consultation was requested. I reviewed the chest x-ray. There are some increased infiltrates bilaterally mainly in the left perihilar/lower lobe area. Nevertheless, the patient does not have any fever. No leukocytosis. His cardiac enzymes are negative. His BNP level was 1250. His heart rhythm is still in atrial fibrillation. In terms of his cardiac history, the patient presented initially to cardiology with increased shortness of breath. Subsequently the patient was found to have severe mitral regurgitation and coronary artery disease. His cardiac catheterization was done on 12/24/2017 and the patient was found to have 70% lesion in the RCA and another 40% lesion in the mid LAD after the diagonal branch. Based on his Results, the patient underwent stenting of the RCA that was quite successful. He underwent cardioversion initially on 12/03/2017 that was successful for short period of time and subsequently his atrial fibrillation recurs. He is DYLAN that was done on 12/24/2017 showed moderate degree of mitral regurgitation. The left ventricle end-diastolic pressure was noted to be normal. No evidence of any intracardiac shunting was noted. Subsequently, he had another hospitalization in April 2018 for increased shortness of breath and PND and palpitation. He was nature fibrillation with rapid ventricular response. He was treated and he was discharged home in the echocardiogram that was done at the same time showed again moderate degree of mitral regurgitation, RV was dilated, aortic root was dilated at 4.1 cm in size and the LAD was severely dilated more than 40 and miles per meter squared. Subsequently, the patient another hospitalization on 06/16/2018 for increased shortness of breath. He underwent a repeat DYLAN that showed again mitral regurgitation and the patient was also found to have a clot in the left atrial appendage. Nevertheless the mitral valve inspection showed moderate to severe regurgitation without evidence of any flail valve. The patient is seen again today 07/06/2018 in follow-up on the regular medical floor. He is currently awake and alert in no acute distress. He does have dyspnea on minimal exertion. He is maintaining good O2 saturations in the 90s on 2 L/m per nasal cannula. He's been afebrile. Hemodynamically stable. Blood culture reveals no growth to date. Sputum culture is pending. Creatinine 0.69. He remains on DuoNeb inhalations and Levaquin. Continued on Xarelto for anticoagulant. On 07/07/2018, the patient was transferred to telemetry unit. He was also started on diuretics. He is producing adequate amount of urine output and the patient has put out more than 1500 mL of urine output over the past 18 hours. He is feeling less short of breath compared to yesterday. He remains in atrial fibrillation. His rate is controlled. On and off he has some atypical vague chest pain across the chest bilaterally. Currently is chest patient 3. The patient also has a stable renal function. He is tolerating diuretics well without any major difficulties. His antibiotic has been simplified to Levaquin although my overall suspicion for an underlying pneumonia is extremely low. Case was discussed with cardiology. His BNP level is being monitored on a regular basis and the patient's BNP level has declined On 07/08/2018 patient seen in follow-up on selective care unit. Still has ongoing exertional dyspnea. No chest pain. On sounds reveal crackles over left lower base. Patient is on IV diuretics, and he is maintaining negative fluid balance, -2710 over last 24 hours. No fever or chills, room air pulse ox is 95%, vital signs are stable, no tachycardia. Patient is on empiric antibiotics, although the possibility of pneumonia was thought to be unlikely, and patient's symptoms of dyspnea, orthopnea, exertional shortness of breath are mostly related to underlying moderate to severe mitral regurgitation, atrial fibrillation. Patient is able to ambulate within the room, he was able to get up and take a shower, it does take him 15-20 minutes to recover his breathing. Today's labs have been noted, no CBC was done, BMP showed sodium of 139, potassium is 4.3, CO2 is 33, B1 is 24, creatinine 0.94. ProBNP is trending down, currently down to 370. Objective - Vital Signs Vital signs: Vital Signs Temp 97.2 F L 07/08/18 08:00 Pulse 68 07/08/18 08:00 Resp 18 07/08/18 08:00 BP 121/79 07/08/18 08:00 Pulse Ox 95 07/08/18 08:00 Intake & Output 07/07/18 07/08/18 07/08/18 18:59 06:59 18:59 Intake Total 720 720 240 Output Total 1800 2350 520 Balance -0939 -1630 -280 Weight 111.4 kg Intake: Oral 720 720 240 Output: Urine 1800 2350 520 Other: Voiding Method Toilet Urinal - Exam Gen. appearance, comfortable moderate degree of respiratory distress even at rest. Head exam was generally normal. There was no scleral icterus or corneal arcus. Mucous membranes were moist. Neck was supple and without jugular venous distension, thyromegaly, or carotid bruits. Carotids were easily palpable bilaterally. There was no adenopathy. Lungs sounds are diminished. Crackles in lung bases bilaterally. No wheezes or rhonchi. Heart sounds are irregular, there is accentuation of the second heart sound. There is a systolic ejection murmur grade 4/6 heard throughout the precordium. No murmurs mainly heard over the left lateral sternal border. Irregular S1 and S2. Abdominal exam revealed normal bowel sounds. The abdomen was soft, non-tender, and without masses, organomegaly, or appreciable enlargement of the abdominal aorta. Examination of the extremities revealed easily palpable radial, femoral and pedal pulses. There was no cyanosis, clubbing or edema. Examination of the skin revealed no evidence of significant rashes, suspicious appearing nevi or other concerning lesions. Neurologically awake and alert and there is no focal neurological deficit. - Labs CBC & Chem 7: 07/05/18 07:56 07/08/18 07:08 Labs: Abnormal Lab Results - Last 24 Hours (Table) 07/08/18 Range/Units 07:08 Carbon Dioxide 33 H (22-30) mmol/L BUN 24 H (9-20) mg/dL Glucose 107 H (74-99) mg/dL Microbiology - Last 24 Hours (Table) 07/04/18 10:10 Blood Culture - Preliminary Blood No Growth after 72 hours 07/05/18 08:00 Gram Stain - Final Sputum Sputum Culture - Final Assessment and Plan Plan: 1 acute dyspnea, along with history of chronic exertional dyspnea, orthopnea and recurrent hospitalization for respiratory distress. In my opinion, the bases shortness of breath originating from heart disease. Specifically, the patient has moderate to severe mitral regurgitation which probably is causing episodic symptoms of heart failure in the setting of atrial fibrillation, chronic. I highly doubt that the patient is an underlying pneumonia. He is afebrile. No leukocytosis. There acute presentation also does not favor pneumonia and favors mainly valvular heart disease specifically mitral valve disease which has been already confirmed the patient's previous evaluation previous echocardiogram findings. Furthermore, the patient denies any significant improvement in his shortness of breath with antibiotic treatment. Based on all this, I discussed the case with cardiology. Removed the patient back to telemetry. He started on IV diuretics and IV Lasix and is feeling better as the patient is diuresing well. He is producing some urine output. He continues to improve clinically. 2 coronary artery disease with previous stenting of RCA. The patient has nonocclusive 40% lesion in the mid LAD. 3 chronic atrial fibrillation 4 blood clot within the left atrial appendage 5 moderate severe mitral regurgitation 6 sleep apnea a combination of obstructive and central. The presence of central apnea also goes along with his diagnosis of valvular heart disease and atrial fibrillation. The patient on CPAP at a pressure of 9 cm of water. 7 previous non-successful cardioversion regarding atrial fibrillation 8 hypertension 9 diverticular disease 10 degenerative arthritis Plan Continue current medical treatment, diuretics. ProBNP is trending down, patient still has the exertional dyspnea. No chest pain. Vital signs are stable. Will await the decision by cardiology regarding the mitral valve regurgitation. Patient has had 4 hospital admissions for congestive heart failure since October 2017. Patient is on room air, no fever or chills, and will continue empiric antibiotics, although the possibility of underlying pneumonia is low, and patient's symptoms of dyspnea, orthopnea are most likely related to his underlying valvular heart disease. I performed a history & physical examination of the patient and discussed their management with my nurse practitioner, Shonda Dunlap. I reviewed the nurse practitioner's note and agree with the documented findings and plan of care. Lung sounds are positive for limited crackles. The findings and the impression was discussed with the patient. I attest to the documentation by the nurse practitioner. Time with Patient: Less than 30
--- NOTE | 2018-07-08 16:06 | P.PN ---
Subjective Progress Note Date: 07/08/18 This is a pleasant 53-year-old male past medical history significant for persistent atrial fibrillation status post cardioversion, coronary artery disease, moderate mitral regurgitation, hypertension and dyslipidemia. He presented to the hospital with symptoms of shortness of breath and pleuritic- type chest discomfort. He has been started on IV diuretics. diuresed well through the night last night, weight is not reflective of this. Blood pressure 105/60 with a heart rate in the 80s, 96% on room air. Sodium 139, potassium 4.3, BUN 24, creatinine 0.9. Continues to be in atrial fibrillation. Objective - Vital Signs Vital signs: Vital Signs Temp 97.2 F L 07/08/18 08:00 Pulse 84 07/08/18 12:27 Resp 18 07/08/18 12:00 BP 105/62 07/08/18 12:00 Pulse Ox 96 07/08/18 12:00 Intake & Output 07/07/18 07/08/18 07/08/18 18:59 06:59 18:59 Intake Total 720 720 600 Output Total 1800 2350 520 Balance -1080 -1630 80 Weight 111.4 kg Intake: Oral 720 720 600 Output: Urine 1800 2350 520 Other: Voiding Method Toilet Urinal - Exam GENERAL: Well-appearing, well-nourished and in no acute distress. NECK: Supple without JVD or thyromegaly. LUNGS: Bibasilar rales noted, no wheezes or rhonchi. Respiration equal and unlabored. HEART: Irregular rate and rhythm with holosystolic murmur heard at the apex, rubs or gallops. S1 and S2 heard. EXTREMITIES: Normal range of motion, no edema. No clubbing or cyanosis. Peripheral pulses intact. - Labs CBC & Chem 7: 07/05/18 07:56 07/08/18 07:08 Labs: Abnormal Lab Results - Last 24 Hours (Table) 07/08/18 Range/Units 07:08 Carbon Dioxide 33 H (22-30) mmol/L BUN 24 H (9-20) mg/dL Glucose 107 H (74-99) mg/dL Microbiology - Last 24 Hours (Table) 07/04/18 10:10 Blood Culture - Preliminary Blood No Growth after 96 hours Assessment and Plan Plan: Assessment and plan #1 Acute dyspnea secondary to mitral regurgitation #2 Chronic persistent atrial fibrillation status post failed cardioversion #3 Coronary artery disease, stenting to the RCA #4 Moderate to severe mitral regurgitation #5 Obstructive sleep apnea #6 Hypertension #7 Dyslipidemia PLan At this point in time we will continue current therapy. Consider discontinuing the IV Lasix in the morning, possible discharge home in 24-48 hours. We will STILL consider restorationist of sinus mechanism, as an outpatient bring the patient back for DYLAN if there is no further evidence of any thrombus consider cardioversion at that time. DNP note has been reviewed, I agree with a documented findings and plan of care. Patient was seen and examined.
[2018-07-08] MEDS: RIVAROXABAN 20 MG TAB PO SCH (16:25)
[2018-07-08] MEDS: ATORVASTATIN 80 MG TAB PO SCH (20:24)
[2018-07-09] MEDS: PANTOPRAZOLE 40 MG TABLET PO SCH (06:45)
[2018-07-09 06:46] LABS: HCT 44.1 % (39.0-53.0); HGB 14.7 gm/dL (13.0-17.5); MCH 29.4 pg (25.0-35.0); MCHC 33.4 g/dL (31.0-37.0); MCV 88.1 fL (80.0-100.0); Mean Platelet Volume 8.5; Platelet Count 203 k/uL (150-450); RBC 5.01 m/uL (4.30-5.90); WBC 8.6 k/uL (3.8-10.6)
[2018-07-09 06:58] LABS: ALT 32 U/L (21-72); AST 18 U/L (17-59); Albumin 3.9 g/dL (3.5-5.0); Alkaline Phosphatase 78 U/L (38-126); Anion Gap 6 mmol/L; Blood Urea Nitrogen 25 mg/dL (9-20); Calcium 9.7 mg/dL (8.4-10.2); Carbon Dioxide 30 mmol/L (22-30); Chloride 102 mmol/L (98-107); Glucose 131 mg/dL (74-99); Potassium 4.1 mmol/L (3.5-5.1); Sodium 138 mmol/L (137-145); Total Bilirubin 1.1 mg/dL (0.2-1.3); Total Protein 6.6 g/dL (6.3-8.2)
[2018-07-09 08:14] VITALS: BP 121/83; RESP 20; TEMP 97.8
[2018-07-09] MEDS: LEVOFLOXACIN 750 MG TAB PO SCH (08:38)
[2018-07-09] MEDS: FUROSEMIDE 10 MG/ML 4 ML VIAL IV SCH (08:38)
[2018-07-09] MEDS: CITALOPRAM HYDROBROMIDE 10 MG TAB PO SCH (08:38)
[2018-07-09] MEDS: CLOPIDOGREL 75 MG TAB PO SCH (08:38)
[2018-07-09] MEDS: METOPROLOL TARTRATE 50 MG TAB PO SCH (08:38)
[2018-07-09] MEDS: LISINOPRIL 2.5 MG TAB PO SCH (08:40)
[2018-07-09] MEDS: IPRATROPIUM-ALBUTEROL 3 ML NEB INHALATION SCH (09:16)
[2018-07-09 09:28] VITALS: PULSE 80
--- NOTE | 2018-07-09 11:21 | P.PN ---
Subjective Progress Note Date: 07/09/18 Principal diagnosis: Dyspnea, multifactorial in a patient known to have moderate to severe mitral regurgitation, atrial fibrillation. This is a 53-year-old male patient who came into the hospital because of shortness of breath. I know Mr. Hare from the sleep clinic and I have diagnosed him having severe obstructive/central sleep apnea with an AHI of above 38. He was given CPAP therapy and he was seeing me in follow-up in sleep center regarding his problem. During his last encounter the sleep center he was telling me that she was having issues with his atrial fibrillation which has become an ongoing recurrent problems in addition to problems with coronary artery disease and mitral valve disease. The patient came into the hospital yesterday after he was having difficulties tolerating his CPAP. Overnight he became acutely short of breath. He had to pull out his CPAP machine. Subsequently he waited and he felt that he was getting progressively short of breath to the point where he was unable to breathe. This was a rather of an acute onset. He denied having any chest pain or pleurisy or hemoptysis. No fever chills or night sweats. No aspiration. No nausea or vomiting. No significant palpitations. He came into the emergency department and a chest x-ray was done which raises the concern for pneumonia and for that reason the patient was placed on accommodation of Levaquin and aztreonam and pulmonary consultation was requested. I reviewed the chest x-ray. There are some increased infiltrates bilaterally mainly in the left perihilar/lower lobe area. Nevertheless, the patient does not have any fever. No leukocytosis. His cardiac enzymes are negative. His BNP level was 1250. His heart rhythm is still in atrial fibrillation. In terms of his cardiac history, the patient presented initially to cardiology with increased shortness of breath. Subsequently the patient was found to have severe mitral regurgitation and coronary artery disease. His cardiac catheterization was done on 12/24/2017 and the patient was found to have 70% lesion in the RCA and another 40% lesion in the mid LAD after the diagonal branch. Based on his Results, the patient underwent stenting of the RCA that was quite successful. He underwent cardioversion initially on 12/03/2017 that was successful for short period of time and subsequently his atrial fibrillation recurs. He is DYLAN that was done on 12/24/2017 showed moderate degree of mitral regurgitation. The left ventricle end-diastolic pressure was noted to be normal. No evidence of any intracardiac shunting was noted. Subsequently, he had another hospitalization in April 2018 for increased shortness of breath and PND and palpitation. He was nature fibrillation with rapid ventricular response. He was treated and he was discharged home in the echocardiogram that was done at the same time showed again moderate degree of mitral regurgitation, RV was dilated, aortic root was dilated at 4.1 cm in size and the LAD was severely dilated more than 40 and miles per meter squared. Subsequently, the patient another hospitalization on 06/16/2018 for increased shortness of breath. He underwent a repeat DYLAN that showed again mitral regurgitation and the patient was also found to have a clot in the left atrial appendage. Nevertheless the mitral valve inspection showed moderate to severe regurgitation without evidence of any flail valve. The patient is seen again today 07/06/2018 in follow-up on the regular medical floor. He is currently awake and alert in no acute distress. He does have dyspnea on minimal exertion. He is maintaining good O2 saturations in the 90s on 2 L/m per nasal cannula. He's been afebrile. Hemodynamically stable. Blood culture reveals no growth to date. Sputum culture is pending. Creatinine 0.69. He remains on DuoNeb inhalations and Levaquin. Continued on Xarelto for anticoagulant. On 07/07/2018, the patient was transferred to telemetry unit. He was also started on diuretics. He is producing adequate amount of urine output and the patient has put out more than 1500 mL of urine output over the past 18 hours. He is feeling less short of breath compared to yesterday. He remains in atrial fibrillation. His rate is controlled. On and off he has some atypical vague chest pain across the chest bilaterally. Currently is chest patient 3. The patient also has a stable renal function. He is tolerating diuretics well without any major difficulties. His antibiotic has been simplified to Levaquin although my overall suspicion for an underlying pneumonia is extremely low. Case was discussed with cardiology. His BNP level is being monitored on a regular basis and the patient's BNP level has declined On 07/08/2018 patient seen in follow-up on selective care unit. Still has ongoing exertional dyspnea. No chest pain. On sounds reveal crackles over left lower base. Patient is on IV diuretics, and he is maintaining negative fluid balance, -2710 over last 24 hours. No fever or chills, room air pulse ox is 95%, vital signs are stable, no tachycardia. Patient is on empiric antibiotics, although the possibility of pneumonia was thought to be unlikely, and patient's symptoms of dyspnea, orthopnea, exertional shortness of breath are mostly related to underlying moderate to severe mitral regurgitation, atrial fibrillation. Patient is able to ambulate within the room, he was able to get up and take a shower, it does take him 15-20 minutes to recover his breathing. Today's labs have been noted, no CBC was done, BMP showed sodium of 139, potassium is 4.3, CO2 is 33, B1 is 24, creatinine 0.94. ProBNP is trending down, currently down to 370. The patient is seen again today 07/09/2018 in follow-up on the selective care unit. He is currently resting quite comfortably in bed. He is awake and alert in no acute distress. He denies any worsening shortness of breath, cough or congestion. No chills or night sweats. He is currently afebrile. Maintaining good O2 saturations in the mid 90s on room air. He's hemodynamically stable. Sputum and blood cultures reveal no growth. White count 8.6. Hemoglobin 14.7. Creatinine 0.95. The patient did have bedside spirometry revealed a FEV1 value 68% of predicted. He quit smoking in October 2017. He remains on DuoNeb inhalations and antibiotics in the form of Levaquin. Currently on Lasix 40 mg IV push every 12 hours. He remains in a negative balance. Coagulated with Xarelto. Objective - Vital Signs Vital signs: Vital Signs Temp 97.8 F 07/09/18 08:00 Pulse 80 07/09/18 09:27 Resp 20 07/09/18 08:00 BP 121/83 07/09/18 08:00 Pulse Ox 95 07/09/18 08:00 Intake & Output 07/08/18 07/09/18 07/09/18 18:59 06:59 18:59 Intake Total 2100 1100 240 Output Total 1000 1600 700 Balance 1100 -500 -460 Weight 111.5 kg Intake: Oral 2100 1100 240 Output: Urine 1000 1600 700 Other: Voiding Method Urinal - Exam Gen. appearance, comfortable no acute respiratory distress. O2 saturations in the 90s on room air. Head exam was generally normal. There was no scleral icterus or corneal arcus. Mucous membranes were moist. Neck was supple and without jugular venous distension, thyromegaly, or carotid bruits. Carotids were easily palpable bilaterally. There was no adenopathy. Lungs sounds are diminished. Crackles in lung bases bilaterally. No wheezes or rhonchi. Heart sounds are irregular, there is accentuation of the second heart sound. There is a systolic ejection murmur grade 4/6 heard throughout the precordium. No murmurs mainly heard over the left lateral sternal border. Irregular S1 and S2. Abdominal exam revealed normal bowel sounds. The abdomen was soft, non-tender, and without masses, organomegaly, or appreciable enlargement of the abdominal aorta. Examination of the extremities revealed easily palpable radial, femoral and pedal pulses. There was no cyanosis, clubbing or edema. Examination of the skin revealed no evidence of significant rashes, suspicious appearing nevi or other concerning lesions. Neurologically awake and alert and there is no focal neurological deficit. - Labs CBC & Chem 7: 07/09/18 05:25 07/09/18 05:25 Labs: Abnormal Lab Results - Last 24 Hours (Table) 07/09/18 Range/Units 05:25 BUN 25 H (9-20) mg/dL Glucose 131 H (74-99) mg/dL Microbiology - Last 24 Hours (Table) 07/04/18 10:10 Blood Culture - Preliminary Blood No Growth after 96 hours Assessment and Plan Assessment: Assessment 1 acute dyspnea, along with history of chronic exertional dyspnea, orthopnea and recurrent hospitalization for respiratory distress. In my opinion, the bases shortness of breath originating from heart disease. Specifically, the patient has moderate to severe mitral regurgitation which probably is causing episodic symptoms of heart failure in the setting of atrial fibrillation, chronic. The acute presentation favors mainly valvular heart disease specifically mitral valve disease which has been already confirmed the patient' s previous evaluation previous echocardiogram findings. Furthermore, the patient denies any significant improvement in his shortness of breath with antibiotic treatment. Improved with diuretics. 2 coronary artery disease with previous stenting of RCA. The patient has nonocclusive 40% lesion in the mid LAD. 3 chronic atrial fibrillation 4 blood clot within the left atrial appendage 5 moderate severe mitral regurgitation 6 sleep apnea a combination of obstructive and central. The presence of central apnea also goes along with his diagnosis of valvular heart disease and atrial fibrillation. The patient on CPAP at a pressure of 9 cm of water. 7 previous non-successful cardioversion regarding atrial fibrillation 8 hypertension 9 diverticular disease 10 degenerative arthritis Plan The patient was seen and evaluated by Dr. Garcia. The patient does have moderate to severe mitral regurgitation with chronic atrial fibrillation, and atrial clot. Anticoagulated with Xarelto. His dyspnea is mostly related to his cardiac status. He continues to diurese well and remains in a negative balance. FEV1 value 68% of predicted. He was on Anoro in the outpatient setting. We will continue to follow and make further recommendations based on his clinical status. I, the cosigning physician, performed a history & physical examination of the patient. Lungs sounds with crackles in the bilateral posterior bases. Maintaining good O2 saturations in the 90s on room air. I discussed the assessment and plan of care with my nurse practitioner, Anne Mata. I attest to the above note as dictated by her.
--- NOTE | 2018-07-10 16:52 | CDI ---
Last Revision, August 2017 Documentation Clarification Form Date: 07/10/18 From: Rupa Smith Phone: If you have a question regarding this query, please contact Noemi Gr at [phone] between 8am and 5pm. Admit Date: 07/04/2018 10:05:00 AM Patient Name: Tristen Hare Visit Number: [id number] Discharge Date: 07/09/18 ATTENTION: The Clinical Documentation Specialists (CDI) and [facility] Coding Staff appreciate your assistance in clarifying documentation. Please respond to the clarification below the line at the bottom and electronically sign. The CDI & [facility] Coding staff will review the response and follow-up if needed. Please note: Queries are made part of the Legal Health Record. If you have any questions, please contact the author of this message via ITS. Chinmay Rodriguez MD Heart failure is documented in the past history of ED note, H&P and Dr. Garcia 's consult note. The patient has moderate to sever mitral regurgitation which probably is causing episodic episodes of heart failure in the setting of chronic atrial fib. is documented in the pulmonar consult note and progress notes. History/Risk Factors: Patient has a history of mitral valve regurgitation, CAD with previous stent placement, hypertension and chronic atrial fib. Patient also has a left atrial appendage thrombosis. Clinical Indicators: Shortness of breath. VS/Pulse OX: T. 97.6, P. 75, R. 19, BP 128/88, O2 sat 98% BNP: 1250 on 07/04, 1770 on 07/06 Echocardiogram Results: Previous admission showed moderate degree of mitral regurgitation, RV was dilated, aortic root was dilated at 4.1 cm in size and the LAD was severely dilated more than 40 per meter squared. Chest X Ray: 07/04: Patchy basilar infiltrates left greater than right. Correlate for pneumonia. 07/05: Mild left lower lobe infiltrate. Atelectasis , pnemonia, atypical pulmonary edema should be considered. Treatment: IV Lasix 40 mg Q 12 hr, PO lasix 40 mg daily In your professional opinion, can you please clarify the acuity and type of CHF if known? Systolic Heart Failure: Acute Chronic Acute on Chronic Diastolic Heart Failure: Acute Chronic X Acute on Chronic Systolic & Diastolic Heart Failure: Acute Chronic Acute on Chronic Heart Failure Unable to Determine Other, please specify MTDD
--- NOTE | 2018-07-16 08:07 | CDI ---
Last Revision, August 2017 Documentation Clarification Form Date: 07/16/18 From: Rupa Smith Phone: If you have a question regarding this query, please contact Noemi Gr at [phone] between 8am and 5pm. Admit Date: 07/04/2018 10:05:00 AM Patient Name: Tristen Hare Visit Number: [id number] Discharge Date: 07/09/18 ATTENTION: The Clinical Documentation Specialists (CDI) and [facility] Coding Staff appreciate your assistance in clarifying documentation. Please respond to the clarification below the line at the bottom and electronically sign. The CDI & [facility] Coding staff will review the response and follow-up if needed. Please note: Queries are made part of the Legal Health Record. If you have any questions, please contact the author of this message via ITS. Chinmay Lopez MD Thank you for signing your previous query. Please document a response before signing this query. Heart failure is documented in the past history of ED note, H&P and Dr. Garcia 's consult note. The patient has moderate to sever mitral regurgitation which probably is causing episodic episodes of heart failure in the setting of chronic atrial fib. is documented in the pulmonar consult note and progress notes. History/Risk Factors: Patient has a history of mitral valve regurgitation, CAD with previous stent placement, hypertension and chronic atrial fib. Patient also has a left atrial appendage thrombosis. Clinical Indicators: Shortness of breath. VS/Pulse OX: T. 97.6, P. 75, R. 19, BP 128/88, O2 sat 98% BNP: 1250 on 07/04, 1770 on 07/06 Echocardiogram Results: Previous admission showed moderate degree of mitral regurgitation, RV was dilated, aortic root was dilated at 4.1 cm in size and the LAD was severely dilated more than 40 per meter squared. Chest X Ray: 07/04: Patchy basilar infiltrates left greater than right. Correlate for pneumonia. 07/05: Mild left lower lobe infiltrate. Atelectasis , pnemonia, atypical pulmonary edema should be considered. Treatment: IV Lasix 40 mg Q 12 hr, PO lasix 40 mg daily In your professional opinion, can you please clarify the acuity and type of CHF if known? Systolic Heart Failure: x Acute Chronic Acute on Chronic Diastolic Heart Failure: Acute Chronic Acute on Chronic Systolic & Diastolic Heart Failure: Acute Chronic Acute on Chronic Heart Failure Unable to Determine Other, please specify MTDD
--- NOTE | 2018-07-17 23:47 | P.DS ---
Providers Date of admission: 07/04/18 10:05 Attending physician: Chandler Valderrama Consults: 07/04/18 20:56 Consult Physician Routine Consulting Provider: Lien Garcia Consult Reason/Comments: Bilateral pneumonia Do you want consulting provider notified?: Yes 07/05/18 13:49 Consult Physician Routine Consulting Provider: Zachary Obregon Consult Reason/Comments: mod.-severe MR, intracardiac thrombus, Afib, SOB Do you want consulting provider notified?: Yes Primary care physician: Chandler Valderrama - Discharge Diagnosis(es) (1) Hospital-acquired pneumonia Status: Acute (2) Atrial fibrillation Status: Acute (3) CAD (coronary artery disease) Status: Acute (4) Former smoker Status: Acute (5) Hypertension Status: Acute Hospital Course: This is discharge from a 53-year-old white male essentially admitted for shortness of breath. He was found to have pneumonia and element of heart failure related to mitral regurgitation. He also has an underlying history of atrial fibrillation which has been very well controlled but still has irregular rhythm. There is debate whether she should have valve fixed versus overt rhythm control with ablation. He is discharged in stable condition to follow- up with me in approximate one week. Patient Condition at Discharge: Stable Plan - Discharge Summary Discharge Rx Participant: No New Discharge Prescriptions: Continue Multivitamin [Men's Multi-Vitamin] 1 tab PO DAILY Fish Oil/Dha/Epa [Fish Oil 1,200 mg Fish Oil] 1 cap PO DAILY Atorvastatin [Lipitor] 80 mg PO HS #90 tab Nitroglycerin Sl Tabs [Nitrostat] 0.4 mg SUBLINGUAL Q5M PRN #25 tab PRN Reason: Chest Pain Citalopram Hydrobromide [CeleXA] 10 mg PO DAILY Omeprazole 20 mg PO DAILY Clopidogrel [Plavix] 75 mg PO DAILY Metoprolol Tartrate [Lopressor] 50 mg PO BID Furosemide [Lasix] 40 mg PO DAILY Lisinopril [Zestril] 2.5 mg PO DAILY 30 Days #30 tab Umeclidinium Brm/Vilanterol Tr [Anoro Ellipta 62.5-25 Mcg INH] 1 puff INHALATION RT-DAILY Rivaroxaban [Xarelto] 20 mg PO DAILY@1600 Furosemide [Lasix] 20 mg PO DAILY@1600 Discharge Medication List Multivitamin [Men's Multi-Vitamin] 1 tab PO DAILY 01/22/14 [History] Fish Oil/Dha/Epa [Fish Oil 1,200 mg Fish Oil] 1 cap PO DAILY 11/06/17 [History] Atorvastatin [Lipitor] 80 mg PO HS #90 tab 01/24/18 [Rx] Nitroglycerin Sl Tabs [Nitrostat] 0.4 mg SUBLINGUAL Q5M PRN #25 tab 01/24/18 [Rx ] Citalopram Hydrobromide [CeleXA] 10 mg PO DAILY 04/14/18 [History] Omeprazole 20 mg PO DAILY 04/14/18 [History] Clopidogrel [Plavix] 75 mg PO DAILY 05/08/18 [History] Metoprolol Tartrate [Lopressor] 50 mg PO BID 05/08/18 [History] Furosemide [Lasix] 40 mg PO DAILY 06/14/18 [History] Lisinopril [Zestril] 2.5 mg PO DAILY 30 Days #30 tab 06/16/18 [Rx] Furosemide [Lasix] 20 mg PO DAILY@1600 07/04/18 [History] Rivaroxaban [Xarelto] 20 mg PO DAILY@1600 07/04/18 [History] Umeclidinium Brm/Vilanterol Tr [Anoro Ellipta 62.5-25 Mcg INH] 1 puff INHALATION RT-DAILY 07/04/18 [History] Follow up Appointment(s)/Referral(s): Lily Valles MD [STAFF PHYSICIAN] - 1 Week (Spoke to office manager receptionist. Office will call with appointment time) Chandler Valderrama MD [Primary Care Provider] - 07/16/18 11:00 am (Sunday) Lien Garcia MD [STAFF PHYSICIAN] - 07/19/18 1:00 pm (Sunday) Discharge Disposition: HOME SELF-CARE
== END 2018-07-09 11:49 | disposition home or self-care (01) | DRG 193 ==
LOC: EC 08:14 → 4MS4W 10:05 → 3SCARD 07-06 14:27
PROVIDERS: ADMIT Family Medicine; ATTEND Family Medicine
DX: J18.9 Pneumonia, unspecified organism (principal); I50.33 Acute on chronic diastolic (congestive) heart failure; I42.9 Cardiomyopathy, unspecified; J44.0 Chronic obstructive pulmonary disease with (acute) lower respiratory infection; J44.1 Chronic obstructive pulmonary disease with (acute) exacerbation; I34.0 Nonrheumatic mitral (valve) insufficiency; I11.0 Hypertensive heart disease with heart failure; I25.10 Atherosclerotic heart disease of native coronary artery without angina pectoris; E78.5 Hyperlipidemia, unspecified; G47.31 Primary central sleep apnea; G47.33 Obstructive sleep apnea (adult) (pediatric); I48.2 Chronic atrial fibrillation; I51.3 Intracardiac thrombosis, not elsewhere classified; K21.9 Gastro-esophageal reflux disease without esophagitis; K57.90 Diverticulosis of intestine, part unspecified, without perforation or abscess without bleeding; M19.90 Unspecified osteoarthritis, unspecified site; G89.29 Other chronic pain; M25.511 Pain in right shoulder; Z79.01 Long term (current) use of anticoagulants; Z79.02 Long term (current) use of antithrombotics/antiplatelets; Z79.899 Other long term (current) drug therapy; Z95.5 Presence of coronary angioplasty implant and graft; Z88.0 Allergy status to penicillin; Z87.891 Personal history of nicotine dependence; Z90.49 Acquired absence of other specified parts of digestive tract; Z82.49 Family history of ischemic heart disease and other diseases of the circulatory system
CPT/HCPCS: 36415; 71046; 80048; 80053; 82550; 82553; 83735; 83880; 84484; 85025; 85027; 85610; 85730; 87040; 87070; 87205; 93005; 94150; 94640; 94760; 96365; 96375; 99285

== ENCOUNTER → 2018-07-12 | Outpatient (CLI) | payer BC ==
--- NOTE | 2018-07-12 15:59 | CT ---
EXAMINATION TYPE: CT abdomen w con DATE OF EXAM: 07/12/2018 COMPARISON: 12/12/2017 CT thorax HISTORY: Follow up chest CT per patient. Abnormal hepatic findings. CT DLP: 1532.1 mGycm Automated exposure control for dose reduction was used. TECHNIQUE: Helical acquisition of images was performed from the lung bases through the top of iliac crest to include entire abdomen. CONTRAST: Performed with Oral Contrast and with IV Contrast, patient injected with 100 mL of Isovue 300. FINDINGS: LUNG BASES: There is a trace left pleural effusion and minimal bibasilar subsegmental dependent atele ctasis. LIVER/GB: Linear arterial enhancing region within the posterior right inferior hepatic lobe on image 28 and 29 is favored to represent an arterial portal shunt. Similarly in a subcapsular location on im age 18 of series 3 there is an additional arterial enhancing lesion as well as on image 19 that could represent small hemangiomas or arterial portal shunts. These appear similar to background liver enha ncement on delayed imaging with no washout. In comparison to the prior of 12/12/2017 there is been no i nterval enlargement of these lesions. PANCREAS: No significant abnormality is seen. SPLEEN: No significant abnormality is seen. ADRENALS: No significant abnormality is seen. KIDNEYS: Kidneys enhance and excrete symmetrically without hydronephrosis. BOWEL: No dilated large or small bowel. LYMPH NODES: No significant abnormality is seen. OSSEOUS STRUCTURES: Mild multilevel degenerative changes of the minor noted. FREE AIR: No free air is visualized. OTHER: Abdominal aorta is tortuous with severe atherosclerosis. There is mild aneurysmal saccular dil atation that is infrarenal measuring 3.4 x 2.9 x 3.1 cm just proximal to the aortoiliac bifurcation. No aneurysmal dilatation of the iliac vasculature. IMPRESSION: 1. STABLE SMALL ARTERIAL ENHANCING HEPATIC LESIONS ARE MOST COMPATIBLE WITH A BENIGN ETIOLOGY SUCH ARTERIAL PORTAL SHUNTS OR FLASH FILLING HEMANGIOMAS NO WASHOUT IS APPRECIATED ON DELAYED IMAGING AND THESE APPEAR LINEAR IN MORPHOLOGY. 2. INCREASING SIZE OF THE PREVIOUSLY SEEN INFRARENAL ABDOMINAL AORTIC ECTASIA NOW MEETING CRITERIA FO R INFRARENAL AORTIC ANEURYSM MEASURING UP TO 3.4 CM WITH SEVERE ATHEROSCLEROSIS.
== END | disposition home or self-care (01) ==
LOC: RADCTMAIN 14:46
PROVIDERS: ATTEND Internal Medicine Gastroenterology
DX: K76.9 Liver disease, unspecified (principal); I71.4 Abdominal aortic aneurysm, without rupture; I70.90 Unspecified atherosclerosis
CPT/HCPCS: 74160; Q9967

== ENCOUNTER 2018-07-25 09:54 | Day surgery (SDC) | payer BC ==
[2018-07-23 15:43] VITALS: BMI 33.9
[~2018-07-25 09:54] MED LIST changes: +LIDOCAINE 1% 20 ML VIAL (10MG/ML) FOR IV START INTRADERMA PRN; +MIDAZOLAM 2 MG/2 ML VIAL IV PRN; -SODIUM CHLORIDE 0.9% 1,000 ML IV SCH
[2018-07-25] MEDS: SODIUM CHLORIDE 0.9% 1,000 ML IV SCH ×2 (10:23→15:50)
[2018-07-25] MEDS ORDERED: PROPOFOL 10 MG/ML 20 ML VIAL IV ONE (11:26)
[2018-07-25] MEDS ORDERED: SODIUM CHLORIDE 0.9% 1,000 ML IV ONE (11:55)
[2018-07-25] MEDS ORDERED: DEXTROSE 5% IN WATER 100 ML with AMIODARONE 150 MG IV ONE (12:00)
[2018-07-25] MEDS ORDERED: MORPHINE SULFATE 4 MG/ML SYRINGE IVP ONE (12:00)
--- NOTE | 2018-07-25 12:20 | P.TEE ---
Indications for Procedure(s): Atrial fibrillation and mitral regurgitation Description of Procedure(s): Patient was given intravenous sedation by machine sander transesophageal echocardiogram was performed without any complications Left ventricular chamber is normal in size with normal left ventricular systolic function Left atrium is moderately enlarged Right ventricular right atrial chamber are normal in size There is a mild thickening of the deep of the anterior mitral leaflet is noted the posterior leaflet movements are restricted in anterior and mitral leaflets are not coapting. There is a moderate to severe 3-4+ mitral regurgitation is evidence of reversal of flow in the pulmonary vein. Left atrial appendage is clear. Is no evidence of thrombus in the left atrial appendage. Aortic and tricuspid valve morphology is normal. Recommendations proceed with cardioversion.
[2018-07-25] MEDS ORDERED: HYDROmorphone 1 MG/ML 1 ML SYRINGE IVP STA ×2 (12:42→12:50)
[2018-07-25] MEDS: AMIODARONE 450 MG in DEXTROSE 5% IN WATER 250 ML IV SCH ×4 (13:24→19:30)
[2018-07-25] MEDS: LACTATED RINGERS 1,000 ML IV SCH (15:50)
[2018-07-25] MEDS ORDERED: RIVAROXABAN 20 MG TAB PO SCH (16:00)
[2018-07-25] MEDS: FUROSEMIDE 20 MG TAB PO SCH (16:23)
[2018-07-25] MEDS: ACETAMINOPHEN IV (For NPO) 1,000 MG in EMPTY BAG 1 BAG IVPB PRN (17:16)
[2018-07-25] MEDS: METOPROLOL TARTRATE 50 MG TAB PO SCH (20:42)
[2018-07-25] MEDS ORDERED: ATORVASTATIN 80 MG TAB PO SCH (21:00)
[2018-07-26] MEDS: AMIODARONE 450 MG in DEXTROSE 5% IN WATER 250 ML IV SCH ×2 (04:46)
[2018-07-26] MEDS: SODIUM CHLORIDE 0.9% 1,000 ML IV SCH ×2 (06:21→11:58)
[2018-07-26] MEDS: LACTATED RINGERS 1,000 ML IV SCH (06:21)
[2018-07-26 07:16] LABS: HCT 36.3 % (39.0-53.0); MCH 28.8 pg (25.0-35.0); MCV 87.4 fL (80.0-100.0); Mean Platelet Volume 8.1; Platelet Count 175 k/uL (150-450); RBC 4.16 m/uL (4.30-5.90); RDW 14.6 % (11.5-15.5); WBC 8.8 k/uL (3.8-10.6)
[2018-07-26] MEDS: IPRATROPIUM 0.5 MG/2.5 ML NEBU INHALATION SCH ×3 (07:21→16:07)
[2018-07-26 07:28] LABS: Anion Gap 6 mmol/L; Blood Urea Nitrogen 16 mg/dL (9-20); Calcium 9.4 mg/dL (8.4-10.2); Carbon Dioxide 26 mmol/L (22-30); Chloride 105 mmol/L (98-107); Glucose 113 mg/dL (74-99); Magnesium 1.8 mg/dL (1.6-2.3); Potassium 4.3 mmol/L (3.5-5.1); Sodium 137 mmol/L (137-145)
[2018-07-26] MEDS ORDERED: PANTOPRAZOLE 40 MG TABLET PO SCH (07:30)
[2018-07-26] MEDS ORDERED: FORMOTEROL FUMARATE 20 MCG/2 ML NEBU INHALATION SCH (08:00)
[2018-07-26] MEDS ORDERED: LISINOPRIL 2.5 MG TAB PO SCH (09:00)
[2018-07-26] MEDS ORDERED: CLOPIDOGREL 75 MG TAB PO SCH (09:00)
[2018-07-26] MEDS ORDERED: NON-FORMULARY DRUG (Fish Oil/Dha/Epa [Fish Oil 1,200 Mg Fish Oil] 1 CAP) PO SCH (09:00)
[2018-07-26] MEDS ORDERED: CITALOPRAM HYDROBROMIDE 10 MG TAB PO SCH (09:00)
[2018-07-26] MEDS ORDERED: NON-FORMULARY DRUG (Multivitamin [Men's Multi-Vitamin] 1 TAB) PO SCH (09:00)
[2018-07-26] MEDS ORDERED: FUROSEMIDE 40 MG TAB PO SCH (09:00)
[2018-07-26] MEDS: METOPROLOL TARTRATE 50 MG TAB PO SCH (09:07)
[2018-07-26 10:47] VITALS: RESP 18; TEMP 97.3
[2018-07-26] MEDS: ACETAMINOPHEN IV (For NPO) 1,000 MG in EMPTY BAG 1 BAG IVPB PRN (12:01)
[2018-07-26] MEDS ORDERED: traMADol 50 MG TAB PO PRN (12:14)
[2018-07-26 12:29] VITALS: BP 122/78; PULSE 62
--- NOTE | 2018-07-26 13:05 | P.PN ---
Subjective Progress Note Date: 07/26/18 Discharge note This is a 53-year-old gentleman who follows with Dr. Anu Valles in the office. He has known history of paroxysmal atrial fibrillation with prior cardioversion. He also has history of coronary artery disease with prior stent placement, hypertension, hyperlipidemia. He was admitted to the hospital to undergo a transesophageal echocardiographic study with subsequent cardioversion to normal sinus rhythm. This procedure was performed yesterday, this morning the patient remains in a normal sinus rhythm. Blood pressure 138/80 with a heart rate in the 80s, 91% on 2 L of oxygen. White blood cell count 8.8, hemoglobin 12.0, platelet count 175. Sodium 137, potassium 4.3, BUN 16, creatinine 0.8, magnesium 1.8. Patient was seen and examined this morning, he states that he felt mildly short of breath, he denied any chest discomfort, does state that he feels better than he did on admission here. IV amiodarone will be discontinued and the patient will be started on amiodarone 200 mg one tablet by mouth 3 times a day. Objective - Vital Signs Vital signs: Vital Signs Temp 97.3 F L 07/26/18 07:40 Pulse 80 07/26/18 11:13 Resp 18 07/26/18 07:40 BP 138/80 07/26/18 07:40 Pulse Ox 91 L 07/26/18 07:40 Intake & Output 07/25/18 07/26/18 07/26/18 18:59 06:59 18:59 Intake Total 260 203.313 Output Total 0 Balance 260 203.313 Weight 113.398 kg 117.3 kg Intake: IV 20 Intake, IV Titration 203.313 Amount Amiodarone 450 mg In 203.313 Dextrose 5% in Water 250 ml @ 1 MG/MIN 33.33 mls/ hr IV [id number] [facility] Rx#: [id number] Oral 240 Output: Urine 0 Other: Voiding Method Toilet # Voids 2 - Exam PHYSICAL EXAMINATION: GENERAL: 53-year-old gentleman in no acute distress at the time of my examination HEENT: Head is atraumatic, normocephalic. Pupils equal, round. Sclera anicteric. Conjunctiva are clear. Mucous membranes of the mouth are moist. Neck is supple. There is no elevated jugular venous pressure.] bruit is heard. HEART EXAMINATION: Heart S1 and S2 systolic murmur is heard. CHEST EXAMINATION: Lungs reveal some fine scattered wheezing throughout. ABDOMEN: Soft, nontender. Bowel sounds are heard. No organomegaly noted. EXTREMITIES: 2+ peripheral pulses with no evidence of peripheral edema and no calf tenderness noted. NEUROLOGIC patient is awake, alert and oriented 3 . . - Labs CBC & Chem 7: 07/26/18 06:55 07/26/18 06:55 Labs: Abnormal Lab Results - Last 24 Hours (Table) 07/26/18 07/26/18 Range/Units 06:55 06:55 RBC 4.16 L (4.30-5.90) m/uL Hgb 12.0 L (13.0-17.5) gm/dL Hct 36.3 L (39.0-53.0) % Glucose 113 H (74-99) mg/dL Assessment and Plan Plan: Assessment and plan #1 status post DYLAN and cardioversion #2 paroxysmal atrial fibrillation #3 coronary artery disease with prior stent placement #4 hypertension #5 hyperlipidemia Plan Patient may be discharged home today. Follow-up appointment with Dr. Anu Valles in the office. He will continue on amiodarone 200 mg one tablet by mouth 3 times a day, Lipitor 80 daily, Celexa 10 mg daily, Plavix 75 mg daily, Lasix 60 mg daily, lisinopril 2.5 mg daily, metoprolol 50 mg twice a day, xarelto 15 mg daily, and tramadol when necessary for pain. DNP note has been reviewed, I agree with a documented findings and plan of care. Patient was seen and examined.
--- NOTE | 2018-07-26 14:13 | P.CNPUL ---
History of Present Illness Consult date: 07/26/18 Reason for consult: dyspnea History of present illness: This is a 53-year-old male patient who is well-known to me. He has mild COPD and severe obstructive sleep apnea. His FEV1 has been 70% of predicted. His AHI is 38 and the patient has been maintained on CPAP therapy on outpatient basis. The patient also had issues with chronic atrial fibrillation, severe mitral regurgitation, coronary artery disease and he was found to have 70% lesion in the RCA and another 40% lesion in the mid LAD after the diagonal branch. He has undergone stenting of the RCA back in early 2018. The patient has had [id number] hospitalization for recurrent shortness of breath and upon further investigate was felt that the patient was into flash pulmonary edema which was attributed to his underlying mitral valve regurgitation. He was in the hospital approximately 3 weeks ago and he was diuresed and he was discharged home. Despite this, he continued to be short of breath. Today the patient underwent a DYLAN him a and the study showed severe mitral regurgitation without any evidence of intracardiac clots. The patient underwent a cardioversion in his A. fib rhythm Converted into normal sinus and he is currently in sinus rhythm and he is hemodynamically stable. A cardiothoracic surgery consultation will be obtained and later stage for mitral valve repair/ replacement. He is free of any angina. His exertional dyspnea. He has orthopnea. No major swelling lower extremities bilaterally. He is wearing his CPAP overnight. No cough. No sputum production. No chest tightness. No wheezing. Review of Systems Constitutional: Reports daytime sleepiness, Reports fatigue, Reports lethargy Eyes: denies blurred vision, denies bulging eye, denies decreased vision, denies diplopia Ears: deny: decreased hearing, ear discharge, earache, tinnitus Ears, nose, mouth and throat: Denies headache, Denies sore throat Cardiovascular: Reports decreased exercise tolerance, Reports dyspnea on exertion, Reports irregular heart beat, Reports palpitations, Reports rapid heart beat secondary to atrial fibrillation and the patient underwent a cardioversion. Respiratory: Reports dyspnea Genitourinary: Reports as per HPI Musculoskeletal: Denies myalgias Musculoskeletal: absent: ankle pain, ankle stiffness, ankle swelling Integumentary: Denies pruritus, Denies rash Neurological: Reports as per HPI Psychiatric: Reports as per HPI Endocrine: Reports as per HPI Hematologic/Lymphatic: Reports as per HPI Allergic/Immunologic: Reports as per HPI Past Medical History Past Medical History: Atrial Fibrillation, Coronary Artery Disease (CAD), Heart Failure, GERD/Reflux, Hyperlipidemia, Hypertension, Pneumonia, Sleep Apnea/CPAP/ BIPAP Additional Past Medical History / Comment(s): COPD, coronary artery disease with previous coronary intervention as discussed above, severe mitral regurgitation, severe obstructive sleep apnea, obesity, hypertension, hyperlipidemia, paroxysmal atrial fibrillation, diverticular disease, acid reflux History of Any Multi-Drug Resistant Organisms: None Reported Past Surgical History: Appendectomy, Heart Catheterization With Stent Additional Past Surgical History / Comment(s): 06/17/18 DYLAN, cardioversions x 2, HEART CATH, ANGIOPLASTY WITH stent to RCA,DYLAN , colonoscopy, EGD, DYLAN/ Cardioversion 07/25/18 Past Anesthesia/Blood Transfusion Reactions: No Reported Reaction Date of Last Stent Placement:: 01/22/18 Past Psychological History: No Psychological Hx Reported Additional Psychological History / Comment(s): Pt resides with his spouse of almost 30 yrs. He is independent. 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 Smoking Status: Former smoker Past Alcohol Use History: Occasional Additional Past Alcohol Use History / Comment(s): started smoking in about 1981 and SMOKED a pack and a pack and a half a day smoker- QUIT SMOKING NOV 07 2017 . Past Drug Use History: None Reported - Past Family History Father Family Medical History: Congestive Heart Failure (CHF) Additional Family Medical History / Comment(s): Father from CHF at the age of 68yrs. Mother Family Medical History: No Reported History Additional Family Medical History / Comment(s): Mother at the age of 62 or 63 yrs from myasthenia gravis. Medications and Allergies Home Medications Medication Instructions Recorded Confirmed Type Multivitamin [Men's Multi-Vitamin] 1 tab PO DAILY 01/22/14 07/25/18 History Fish Oil/Dha/Epa [Fish Oil 1,200 1 cap PO DAILY 11/06/17 07/25/18 History mg Fish Oil] Atorvastatin [Lipitor] 80 mg PO HS #90 tab 01/24/18 07/25/18 Rx Nitroglycerin Sl Tabs [Nitrostat] 0.4 mg SUBLINGUAL Q5M PRN #25 tab 01/24/18 Rx Citalopram Hydrobromide [CeleXA] 10 mg PO DAILY 04/14/18 07/25/18 History Omeprazole 20 mg PO DAILY 04/14/18 07/25/18 History Clopidogrel [Plavix] 75 mg PO DAILY 05/08/18 07/25/18 History Metoprolol Tartrate [Lopressor] 50 mg PO BID 05/08/18 07/25/18 History Furosemide [Lasix] 40 mg PO DAILY 06/14/18 07/25/18 History Lisinopril [Zestril] 2.5 mg PO DAILY 30 Days #30 tab 06/16/18 07/25/18 Rx Furosemide [Lasix] 20 mg PO DAILY@1600 07/04/18 07/25/18 History Umeclidinium Brm/Vilanterol Tr 1 puff INHALATION RT-DAILY 07/04/18 07/25/18 History [Anoro Ellipta 62.5-25 Mcg INH] Amiodarone [Cordarone] 200 mg PO TID #90 tab 07/26/18 Rx Rivaroxaban [Xarelto] 15 mg PO DAILY@1600 #30 tab 07/26/18 Rx Allergies Allergy/AdvReac Type Severity Reaction Status Date / Time Penicillins Allergy Unknown Verified 07/25/18 10:12 Childhood Physical Exam Vitals: Vital Signs Temp Pulse Pulse Resp BP Pulse Ox 07/26/18 11:40 62 18 122/78 94 L 07/26/18 11:13 80 07/26/18 11:03 80 07/26/18 07:40 97.3 F L 69 18 138/80 91 L 07/26/18 07:32 88 07/26/18 07:22 88 07/26/18 04:00 64 18 117/78 94 L 07/26/18 00:00 72 20 115/77 90 L 07/25/18 20:00 98 F 69 20 132/88 94 L 07/25/18 19:01 17 07/25/18 16:00 98 F 70 17 117/68 95 07/25/18 15:00 97.5 F L 70 16 135/89 91 L 07/25/18 14:42 62 18 133/67 98 Intake and Output 07/25/18 07/26/18 07/26/18 22:59 06:59 14:59 Intake Total 443.313 240 Balance 443.313 240 Intake: Intake, IV Titration 203.313 Amount Amiodarone 450 mg In 203.313 Dextrose 5% in Water 250 ml @ 1 MG/MIN 33.33 mls/ hr IV .[id number] [facility] Rx#: [id number] Oral 240 240 Other: Voiding Method Toilet # Voids 2 1 Weight 113.398 kg 117.3 kg Gen. appearance, comfortable moderate degree of respiratory distress even at rest. Head exam was generally normal. There was no scleral icterus or corneal arcus. Mucous membranes were moist. Neck was supple and without jugular venous distension, thyromegaly, or carotid bruits. Carotids were easily palpable bilaterally. There was no adenopathy. Lungs sounds are diminished. Crackles in lung bases bilaterally. No wheezes or rhonchi. Heart sounds are regular, there is accentuation of the second heart sound. There is a systolic ejection murmur grade 4/6 heard throughout the precordium. No murmurs mainly heard over the left lateral sternal border. Patient's cardiac rhythm is sinus with a normal S1 and a split S2 with a significant murmur heard along the left lateral sternal border. He is currently sinus rhythm as the patient is post cardioversion. Abdominal exam revealed normal bowel sounds. The abdomen was soft, non-tender, and without masses, organomegaly, or appreciable enlargement of the abdominal aorta. Examination of the extremities revealed easily palpable radial, femoral and pedal pulses. There was no cyanosis, clubbing or edema. Examination of the skin revealed no evidence of significant rashes, suspicious appearing nevi or other concerning lesions. Neurologically awake and alert and there is no focal neurological deficit. Results - Laboratory Findings CBC and BMP: 07/26/18 06:55 07/26/18 06:55 Abnormal lab findings: Abnormal Labs 07/26/18 07/26/18 06:55 06:55 RBC 4.16 L Hgb 12.0 L Hct 36.3 L Glucose 113 H Assessment and Plan Plan: 1 shortness of breath with episodes of decompensated heart failure/pulmonary edema. This was attributed to valvular heart disease as the patient was confirmed to have severe mitral regurgitation in addition to chronic atrial fibrillation further decompensating his heart failure. His COPD in general is mild with an FEV1 of 70% of predicted. He also has obstructive sleep apnea which is being treated on outpatient basis. For now, the mitral regurgitation is severe and it is felt to be the culprit for his underlying shortness of breath and the current hospitalization. The patient will be undergoing a cardiothoracic evaluation on outpatient basis and consideration for valve replacement/repair 2 chronic atrial fibrillation status post successful cardioversion. The patient is currently on anticoagulation. This is controlled is back to normal sinus rhythm 3 coronary artery disease with previous stenting of RCA. The patient had a nonocclusive 40% LAD lesion, involving the mid LAD 4 COPD mild in severity with an FEV1 of 70% of predicted at baseline 5 sleep apnea a combination of obstructive and central. The presence of central apnea also goes along with his diagnosis of valvular heart disease and atrial fibrillation. The patient on CPAP at a pressure of 9 cm of water. 6 hypertension 7 diverticular disease 8 degenerative arthritis Plan The plan for now is to discharge patient home. He is currently in a sinus rhythm. Continue medical condition with Xarelto. Continue metoprolol for rate control and 50 mg by mouth twice a day in addition to Zestril 2.5 mg by mouth daily. Diuretics will be continued and the patient is currently on Lasix 40 in the morning and 20 in the evening. Continue aspirin and Plavix. Amiodarone maintenance 200 mg by mouth 3 times a day. Continue Anoro for COPD. Repeat cardiac catheterization next week to reevaluate the coronary anatomy. The patient will need the cardiothoracic surgeon on outpatient basis and proceed with surgery accordingly. The patient will be asked to come back to the hospital if there is any worsening in his pulmonary status or shortness of breath.
[2018-07-26] MEDS: FUROSEMIDE 20 MG TAB PO SCH (15:31)
[2018-07-26] MEDS ORDERED: AMIODARONE 200 MG TAB PO SCH (16:00)
[2018-07-26] MEDS ORDERED: RIVAROXABAN 15 MG TAB PO SCH (16:00)
== END 2018-07-26 16:09 | disposition home or self-care (01) ==
LOC: CATHCVL 09:54 → 3SCARD 13:04 → CATHCVL 07-26 16:09 → 3SCARD 07-26 16:10
PROVIDERS: ATTEND Internal Medicine Cardiovascular Disease
DX: I34.0 Nonrheumatic mitral (valve) insufficiency (principal); I48.2 Chronic atrial fibrillation; I25.119 Atherosclerotic heart disease of native coronary artery with unspecified angina pectoris; J44.9 Chronic obstructive pulmonary disease, unspecified; G47.33 Obstructive sleep apnea (adult) (pediatric); I11.0 Hypertensive heart disease with heart failure; I50.9 Heart failure, unspecified; K57.90 Diverticulosis of intestine, part unspecified, without perforation or abscess without bleeding; M19.90 Unspecified osteoarthritis, unspecified site; E78.5 Hyperlipidemia, unspecified; K21.9 Gastro-esophageal reflux disease without esophagitis; Z99.89 Dependence on other enabling machines and devices; Z95.5 Presence of coronary angioplasty implant and graft; Z79.01 Long term (current) use of anticoagulants; Z79.02 Long term (current) use of antithrombotics/antiplatelets; Z79.82 Long term (current) use of aspirin; Z79.899 Other long term (current) drug therapy; Z88.0 Allergy status to penicillin; Z82.49 Family history of ischemic heart disease and other diseases of the circulatory system; Z87.891 Personal history of nicotine dependence
CPT/HCPCS: 94640 ×2; 93312; 92960; 80048; 83735; 85027; J2270; J0282 ×2; J1170; J0131 ×2; J2704; 93320; 93325

== ENCOUNTER → 2018-08-12 | Day surgery (SDC) | payer BC ==
[2018-08-06 15:03] VITALS: BMI 34.4
[~2018-08-12] MED LIST changes: +ALPRAZolam 0.25 MG TAB PO PRN; +ALPRAZolam 0.5 MG TAB PO PRN; +AMIODARONE 200 MG TAB PO SCH; +ASPIRIN 325 MG TAB PO STA; +ATORVASTATIN 80 MG TAB PO SCH; +ATORVASTATIN 80 MG TAB PO STA; +CITALOPRAM HYDROBROMIDE 20 MG TAB PO SCH; +FAMOTIDINE 20 MG TAB PO ONE; +FAMOTIDINE 20 MG TAB PO STA; +FUROSEMIDE 20 MG TAB PO SCH; +IOPAMIDOL-370 100ML BTL INJ ONE; -LIDOCAINE 1% 20 ML VIAL (10MG/ML) FOR IV START INTRADERMA PRN; +LIDOCAINE 1% INJ 10MG/ML (20 ML MDV) ONE; +LIDOCAINE 1% INJ 10MG/ML (20 ML MDV) SQ ONE; +LISINOPRIL 2.5 MG TAB PO SCH; +MD COMMUNICATION TO PHARMACY 1 EACH MISC PO ONE; +METOPROLOL TARTRATE 50 MG TAB PO SCH; +MIDAZOLAM 2 MG/2 ML VIAL IV ONE; -MIDAZOLAM 2 MG/2 ML VIAL IV PRN; +MIDAZOLAM 2 MG/2 ML VIAL ONE; +MORPHINE SULFATE 4 MG/ML SYRINGE ONE; +MORPHINE SULFATE/PF 10MG/10ML VL IVP PRN; +MUPIROCIN 2% OINT 22 GM TUBE TOPICAL SCH; +NITROGLYCERIN SL TABS 0.4 MG TAB SUBLINGUAL PRN; +NON-FORMULARY DRUG (Multivitamin [Men's Multi-Vitamin] 1 TAB) PO SCH; +NON-FORMULARY DRUG (Omeprazole [Omeprazole] 20 MG) PO SCH; +NON-FORMULARY DRUG (Umeclidinium Brm/Vilanterol Tr [Anoro Ellipta 62.5-25 Mcg Inh] 1 PUFF) INHALATION SCH; +SODIUM CHLORIDE 0.9% 1,000 ML IV ONE; +SODIUM CHLORIDE 0.9% 1,000 ML IV SCH; +SODIUM CHLORIDE 0.9% 1,000 ML in EMPTY BAG 1 BAG IV ONE; +VERAPAMIL 2.5 MG/ML 2 ML AMP ONE; +fentaNYL (PF) 50 MCG/ML 2 ML AMP IV ONE; +fentaNYL (PF) 50 MCG/ML 2 ML AMP ONE; +traMADol 50 MG TAB PO SCH
[2018-08-12 11:27] VITALS: TEMP 97.8
[2018-08-12 11:43] LABS: Basophils # (A) 0.1 k/uL (0-0.2); Basophils % (A) 1 %; Eosinophils # (A) 0.2 k/uL (0-0.7); Eosinophils % (A) 2 %; HCT 41.7 % (39.0-53.0); HGB 14.1 gm/dL (13.0-17.5); Lymphocytes % (A) 22 %; MCH 29.4 pg (25.0-35.0); MCHC 33.8 g/dL (31.0-37.0); MCV 86.9 fL (80.0-100.0); Mean Platelet Volume 8.2; Monocytes # (A) 0.7 k/uL (0-1.0); Monocytes % (A) 7 %; Neutrophils # (A) 5.9 k/uL (1.3-7.7); Neutrophils % (A) 65 %; Platelet Count 236 k/uL (150-450); RDW 14.5 % (11.5-15.5); WBC 9.2 k/uL (3.8-10.6)
[2018-08-12 11:49] LABS: ALT 37 U/L (21-72); AST 26 U/L (17-59); Albumin 4.4 g/dL (3.5-5.0); Alkaline Phosphatase 91 U/L (38-126); Anion Gap 12 mmol/L; Blood Urea Nitrogen 17 mg/dL (9-20); Carbon Dioxide 26 mmol/L (22-30); Chloride 105 mmol/L (98-107); Cholesterol 166 mg/dL (<200); Glucose 116 mg/dL (74-99); HDL Cholesterol 57 mg/dL (40-60); LDL Cholesterol,Calculated 89 mg/dL (0-99); Magnesium 1.9 mg/dL (1.6-2.3); Potassium 4.3 mmol/L (3.5-5.1); Sodium 143 mmol/L (137-145); Total Protein 7.4 g/dL (6.3-8.2); Triglycerides 99 mg/dL (<150)
[2018-08-12 11:51] LABS: Partial Thromboplastin Time 24.1 sec (22.0-30.0); Prothrombin Time 9.5 sec (9.0-12.0)
[2018-08-12] MEDS: VERAPAMIL SYRINGE (5 MG/10 ML) INTRAARTER ONE ×2 (13:19→13:39)
[2018-08-12] MEDS: NITROGLYCERIN 1000MCG/10ML SYRINGE INTRACORON ONE ×2 (13:26→13:35)
[2018-08-12 17:14] VITALS: RESP 16
--- NOTE | 2018-08-12 18:09 | US ---
EXAMINATION TYPE: US carotid duplex BILAT DATE OF EXAM: 08/12/2018 COMPARISON: NONE CLINICAL HISTORY: preop cardiac surgery. EXAM MEASUREMENTS: RIGHT: Peak Systolic Velocity (PSV) cm/sec ----- Right CCA: 71.1 ----- Right ICA: 77.4 ----- Right ECA: 111.3 ICA/CCA ratio: 1.1 RIGHT: End Diastole cm/sec ----- Right CCA: 16 ----- Right ICA: 28.9 ----- Right ECA: 9.5 LEFT: Peak Systolic Velocity (PSV) cm/sec ----- Left CCA: 78.7 ----- Left ICA: 82.7 ----- Left ECA: 86.7 ICA/CCA ratio: 1.1 LEFT: End Diastole cm/sec ----- Left CCA: 18.2 ----- Left ICA: 30.9 ----- Left ECA: 6.5 VERTEBRALS (direction of flow): Right Vertebral: Antegrade Left Vertebral: Antegrade Rhythm: Normal Severe atherosclerotic changes with no significant velocity increases. Study done by SARITA. IMPRESSION: There is antegrade flow in the vertebral arteries. The images and measurements suggest c lose to 50% stenosis in both internal carotid arteries and the common carotid arteries. There is rebecca cified plaque formation. Criteria for Assigning % of Stenosis / Diameter reduction (Estimation based on the indirect measurements of the internal carotid artery velocities (ICA PSV). 1. Normal (no stenosis)=ICA PSV < 125 cm/s: ratio < 2.0: ICA EDV<40 cm/s. 2. Less than 50% stenosis=ICA PSV < 125 cm/s: ratio < 2.0: ICA EDV<40 cm/s. 3. 50 to 69% stenosis=ICA PSV of 125 to 230 cm/s: ration 2.0 ? 4.0: ICA EDV 40-100 cm/s. 4. Greater than 70% stenosis to near occlusion= ICA PSV > 230 cm/s: ratio > 4.0: ICA EDV > 100 cm/s. 5. Near occlusion= ICA PSV velocities may be low or undetectable: variable ratio and ICA EDV. 6. Total occlusion=unable to detect flow.
[2018-08-12 18:11] VITALS: BP 119/71; PULSE 60
[2018-08-12 18:49] LABS: Appearance,Urine Clear (Clear); Bilirubin,Urine Negative (Negative); Blood,Urine Negative (Negative); Color,Urine Yellow; Glucose,Urine (UA) Negative (Negative); Ketones,Urine Negative (Negative); Leukocyte Esterase,Urine Negative (Negative); Nitrite,Urine Negative (Negative); PH, Urine 6.5 (5.0-8.0); Protein,Urine Trace (Negative); Urobilinogen,Urine <2.0 mg/dL (<2.0)
[2018-08-12 18:52] LABS: Specific Gravity,Urine >1.050 (1.001-1.035)
[2018-08-12 20:47] LABS: Hepatitis A Antibody IgM Non-Reactive (Non-Reactive); Hepatitis B Core IgM Non-Reactive (Non-Reactive)
--- NOTE | 2018-08-12 22:31 | CC ---
CARDIAC CATHETERIZATION REPORT DATE OF SERVICE: 08/12/2018. PROCEDURE: Left heart catheterization and coronary angiography. PERFORMED BY: Dr. Anu Valles. SEDATION: Moderate conscious sedation time was 30 minutes. Patient was given a combination of Versed fentanyl and Benadryl. Oxygen saturation, hemodynamics and EKG were monitored closely. PROCEDURE NOTE: Under local anesthesia and strict aseptic precautions, a 6-Nepali introducer was placed in the right radial artery. Using a 3.5 left and a 4.0 right Angela catheter, I performed coronary angiography and using the same right catheter, I checked LV pressures but did not perform an LV-gram. The catheter and sheath were taken out and a TR band applied as per protocol. The saturation in the fingers of the right hand was about 94%. Patient tolerated the procedure without complications. Results were discussed with the patient and family. He will require in addition to a mitral valve replacement that was planned and a Maze procedure, he will need a graft to the RCA and I discussed the findings with Dr. Kaur. He may also require a graft to circumflex, but Dr. Kaur will review the films and we will then make a decision. CARDIAC CATHETERIZATION FINDINGS: The left ventricular end-diastolic pressure was about 12-13 mmHg without any gradient across aortic valve. CORONARY ANGIOGRAPHY FINDINGS: RIGHT CORONARY ARTERY : This is a dominant vessel that was stented after atherectomy in January of this year. There is now evidence of some spasm in the area. After giving nitroglycerin, I performed a repeat injection. There is evidence of about 70% focal area of narrowing within the proximal aspect of the stent and just proximal to the stented segment. The mid segment that was also stented is widely patent. This is a very dominant vessel that bifurcates into a large PDA and PLV, both of which are free of significant disease. The proximal RCA therefore has a 70% stenosis just at the proximal stent and also proximal to the proximal stent. This will require revascularization. LEFT MAIN CORONARY ARTERY: Short, patent disease-free vessel that bifurcates into LAD and circumflex. LEFT ANTERIOR DESCENDING CORONARY ARTERY: Good caliber vessel, gives off septal and diagonal branches, runs all the way to the apex, supplies a sizable amount of myocardium. No significant disease in the large caliber, large distribution LAD system. Diagonal is also free of significant disease. LEFT POSTERIOR CIRCUMFLEX CORONARY ARTERY: Technically a nondominant vessel but large in caliber and distribution gives off an AV groove branch and distally gives off a large obtuse marginal that bifurcates into 2 branches. In the midportion, there is about a 55-60 percent lesion in the mid circumflex. Even after nitroglycerin, this seems to persist in the range of 55%. This represents modest progression of disease compared to the cath from September or October of this year. The lesion is about 55% in the mid circumflex. LEFT VENTRICULOGRAM: This was not performed. FINAL IMPRESSION: This patient has a restenotic lesion in the proximal RCA which is a very dominant vessel. The left main and LAD are free of significant disease. Circumflex has a 55% stenosis. This may represent some progression of disease. The filling pressures are normal and there is no gradient across the aortic valve. RECOMMENDATIONS: Findings were discussed with the patient and family and I also spoke to Dr. Kaur. I am recommending a graft to the RCA, preferably if he can do an internal mammary artery graft, that would be very useful. The circumflex has a moderate lesion and compared to the previous angiograms from December of 2017, there is some progression of disease noted in the circumflex. It is not a critical lesion, but there is a moderate to severe moderate lesion noted in the mid circumflex. LAD is free of significant disease. I am recommending that he should have a right internal mammary graft to the RCA and circumflex graft. Decision will be after we review the pictures with Dr. Kaur. The patient will be discharged today. Findings were explained to the patient and . MARTY / BESSN: [id number] /
[2018-08-12 23:36] LABS: Hemoglobin A1C 6.1 % (4.0-6.0)
--- NOTE | 2018-08-14 13:22 | P.VSCSTY ---
Greater Saphenous Vein Mapping This is bilateral lower extremity greater saphenous vein mapping. Date of service 08/12/2018 Vein quality and ultrasound appearance no obvious wall changes are thrombus are seen. Vein size groin right 6.1 x 7.4 groin left 5.6 x 6.4 High thigh right 4.3 x 4.6 high thigh left 4.2 x 5.6 Mid thigh right 3.3 x 3.3 mid thigh left 3.4 x 4.2 Above-knee right 3.4 x 3.5 above- knee left 3.2 x 4.6 Below knee right 2.2 x 2.6 below-knee left 3.5 x 3.5 Mid calf right 2.3 x 3.3 mid calf left 2.3 x 3.2 Ankle right 2.4 x 3.1 ankle left 2.8 x 4.0 Impression usable bilateral greater saphenous vein. There are a lot of branches in the lower legs bilaterally..
== END | disposition home or self-care (01) ==
LOC: CATHCVL 10:40
PROVIDERS: ATTEND Internal Medicine Interventional Cardiology
DX: I48.1 Persistent atrial fibrillation (principal); I25.10 Atherosclerotic heart disease of native coronary artery without angina pectoris; T82.855A Stenosis of coronary artery stent, initial encounter; Y71.8 Miscellaneous cardiovascular devices associated with adverse incidents, not elsewhere classified
CPT/HCPCS: 93458; 80061; 80053; 80074; 84443; 83735; 85025; 85610; 85730; 81003; 87070; 87086; 83036; 93970; 93880; C1894; J2250; J2270; J2001; J3010; Q9967; 86850; 86900; 86901; 86920

== ENCOUNTER 2018-08-15 05:36 | Inpatient (IN) | payer BC ==
[~2018-08-15 05:36] MED LIST changes: +ALBUMIN HUMAN 25% 50 ML IV ONE; +ALBUMIN HUMAN 5% 500 ML IVPB ONE; -ALPRAZolam 0.25 MG TAB PO PRN; -ALPRAZolam 0.5 MG TAB PO PRN; -AMIODARONE 200 MG TAB PO SCH; +ASPIRIN 325 MG TAB PO ONE; -ASPIRIN 325 MG TAB PO STA; +ATORVASTATIN 10 MG TAB PO ONE; -ATORVASTATIN 80 MG TAB PO SCH; -ATORVASTATIN 80 MG TAB PO STA; +CALCIUM CHLORIDE 100 MG/ML 10 ML SYRINGE IV ONE; +CHLORHEXIDINE GLUCONATE 15 ML CUP MUCOUS MEM ONE; -CITALOPRAM HYDROBROMIDE 20 MG TAB PO SCH; +CLEVIDIPINE BUTYRATE 25 MG in EMPTY BAG 1 BAG IV ONE; +DEXTROSE 5% IN WATER 1,000 ML with POTASSIUM CHLORIDE 110 MEQ, MAGNESIUM SULFATE 16 MEQ... IV ONE; +DEXTROSE 5% IN WATER 1,000 ML with POTASSIUM CHLORIDE 25 MEQ, SODIUM CHLORIDE 2.5MEQ/ML... IRRIGATION ONE; -FAMOTIDINE 20 MG TAB PO ONE; -FAMOTIDINE 20 MG TAB PO STA; -FUROSEMIDE 20 MG TAB PO SCH; +HEPARIN SODIUM 1,000 UN/ML (10ML VL) IV ONE; +HEPARIN SODIUM,PORCINE 5,000 UNIT in SODIUM CHLORIDE 0.9% 500 ML 500 ML IV ONE; +INSULIN REGULAR 100 UNIT in SODIUM CHLORIDE 0.9% 100 ML IV ONE; -IOPAMIDOL-370 100ML BTL INJ ONE; +LACTATED RINGERS 1,000 ML IV ONE; -LIDOCAINE 1% INJ 10MG/ML (20 ML MDV) ONE; -LIDOCAINE 1% INJ 10MG/ML (20 ML MDV) SQ ONE; -LISINOPRIL 2.5 MG TAB PO SCH; +MAGNESIUM SULFATE MG 500 MG/ML IV ONE; +MANNITOL 25% 12.5 GM/50 ML VIAL IV ONE; -MD COMMUNICATION TO PHARMACY 1 EACH MISC PO ONE; +METOPROLOL TARTRATE 12.5 MG TAB PO ONE; -METOPROLOL TARTRATE 50 MG TAB PO SCH; -MIDAZOLAM 2 MG/2 ML VIAL IV ONE; -MIDAZOLAM 2 MG/2 ML VIAL ONE; -MORPHINE SULFATE 4 MG/ML SYRINGE ONE; -MORPHINE SULFATE/PF 10MG/10ML VL IVP PRN; -MUPIROCIN 2% OINT 22 GM TUBE TOPICAL SCH; -NITROGLYCERIN SL TABS 0.4 MG TAB SUBLINGUAL PRN; +NITROGLYCERIN-D5W PMX 25 MG/250 ML BTL IV ONE; +NITROGLYCERIN-D5W PMX 50 MG in DEXTROSE/WATER 1 250ML.BAG IV ONE; -NON-FORMULARY DRUG (Multivitamin [Men's Multi-Vitamin] 1 TAB) PO SCH; -NON-FORMULARY DRUG (Omeprazole [Omeprazole] 20 MG) PO SCH; -NON-FORMULARY DRUG (Umeclidinium Brm/Vilanterol Tr [Anoro Ellipta 62.5-25 Mcg Inh] 1 PUFF) INHALATION SCH; +NOREPINEPHRINE 4 MG in SODIUM CHLORIDE 0.9% 250 ML IV ONE; +PHENYLEPHRINE 40 MG in SODIUM CHLORIDE 0.9% 250 ML IV ONE; +PHENYLEPHRINE-0.9% NACL SYG 1 MG/10 ML SYRINGE IV ONE; +PROPOFOL 1,000 MG/100 ML VIAL IV ONE; +PROTAMINE SULFATE 10 MG/ML 25 ML VIAL IV ONE; +PROTAMINE SULFATE 250 MG in EMPTY BAG 1 BAG IV ONE; +SODIUM BICARB 8.4% 50 ML SYR (1 MEQ/ML) IV ONE; -SODIUM CHLORIDE 0.9% 1,000 ML IV SCH; -SODIUM CHLORIDE 0.9% 1,000 ML in EMPTY BAG 1 BAG IV ONE; +TRANEXAMIC ACID 2,000 MG in SODIUM CHLORIDE 0.9% 180 ML IV ONE; -VERAPAMIL 2.5 MG/ML 2 ML AMP ONE; +ceFAZolin 2,000 MG in SODIUM CHLORIDE 0.9% 30 ML IVPB ONE; +ceFAZolin IN SWFI 2 GM/20 ML SYRINGE IVP ONE; -fentaNYL (PF) 50 MCG/ML 2 ML AMP IV ONE; -fentaNYL (PF) 50 MCG/ML 2 ML AMP ONE; -traMADol 50 MG TAB PO SCH
[2018-08-15] MEDS ORDERED: SODIUM CHLORIDE 0.9% 250 ML BAG ONE (07:52)
[2018-08-15] MEDS ORDERED: MIDAZOLAM 2 MG/2 ML VIAL ONE (07:52)
[2018-08-15] MEDS ORDERED: HEPARIN SODIUM,PORCINE 10,000 UNIT/ML 1 ML VIAL ONE (07:52)
[2018-08-15] MEDS ORDERED: SODIUM CHLORIDE 0.9% IRRIG 1,000 ML BTL IRRIGATION ONE (07:52)
[2018-08-15] MEDS ORDERED: ELECTROLYTE-R (PH 7.4) 1,000 ML IV.SOLN IV ONE (07:52)
[2018-08-15] MEDS ORDERED: VECURONIUM 10 MG VIAL IV ONE (07:52)
[2018-08-15] MEDS ORDERED: fentaNYL (PF) 50 MCG/ML 2 ML AMP ONE (07:52)
[2018-08-15] MEDS ORDERED: fentaNYL (PF) 50 MCG/ML 50 ML VIAL ONE (07:52)
[2018-08-15] MEDS ORDERED: TRANEXAMIC ACID 1,000 MG/10 ML VIAL ONE (07:52)
[2018-08-15 09:03] LABS: ABG Base Excess 2.2 mmol/L; ABG HCO3 27 mmol/L (21-25); ABG Oxygen Saturation 99.7 % (94-97); ABG PCO2 43 mmHg (35-45); ABG PH 7.41 (7.35-7.45); ABG PO2 309 mmHg (83-108); ABG Potassium Whole Blood 4.2 mmol/L (3.4-4.5); ABG Sodium Whole Blood 141 mmol/L (135-146); ABG TCO2 29 mmol/L (19-24)
[2018-08-15] MEDS ORDERED: PAPAVERINE 360 MG in SODIUM CHLORIDE 0.9% 90 ML IV ONE (09:30)
[2018-08-15] MEDS ORDERED: TRANEXAMIC ACID 2,000 MG in SODIUM CHLORIDE 0.9% 180 ML IV ONE (10:15)
[2018-08-15 10:19] LABS: ABG Base Excess 2.2 mmol/L; ABG HCO3 28 mmol/L (21-25); ABG Oxygen Saturation 99.3 % (94-97); ABG PCO2 48 mmHg (35-45); ABG PH 7.38 (7.35-7.45); ABG PO2 190 mmHg (83-108); ABG Potassium Whole Blood 5.4 mmol/L (3.4-4.5); ABG Sodium Whole Blood 140 mmol/L (135-146); ABG TCO2 29 mmol/L (19-24)
[2018-08-15 11:09] LABS: ABG Base Excess 0.9 mmol/L; ABG HCO3 26 mmol/L (21-25); ABG Oxygen Saturation 99.6 % (94-97); ABG PCO2 43 mmHg (35-45); ABG PH 7.39 (7.35-7.45); ABG PO2 217 mmHg (83-108); ABG Potassium Whole Blood 4.9 mmol/L (3.4-4.5); ABG Sodium Whole Blood 136 mmol/L (135-146); ABG TCO2 27 mmol/L (19-24)
[2018-08-15 12:05] LABS: ABG Base Excess -0.4 mmol/L; ABG HCO3 27 mmol/L (21-25); ABG Oxygen Saturation 99.6 % (94-97); ABG PCO2 60 mmHg (35-45); ABG PH 7.27 (7.35-7.45); ABG PO2 326 mmHg (83-108); ABG Sodium Whole Blood 138 mmol/L (135-146); ABG TCO2 29 mmol/L (19-24)
[2018-08-15 12:31] LABS: ABG Base Excess -0.3 mmol/L; ABG HCO3 26 mmol/L (21-25); ABG Oxygen Saturation 99.6 % (94-97); ABG PCO2 51 mmHg (35-45); ABG PH 7.32 (7.35-7.45); ABG PO2 313 mmHg (83-108); ABG Potassium Whole Blood 5.2 mmol/L (3.4-4.5); ABG Sodium Whole Blood 137 mmol/L (135-146); ABG TCO2 28 mmol/L (19-24)
[2018-08-15 13:03] LABS: ABG Base Excess 0.5 mmol/L; ABG HCO3 25 mmol/L (21-25); ABG Oxygen Saturation 99.7 % (94-97); ABG PCO2 41 mmHg (35-45); ABG PO2 351 mmHg (83-108); ABG Potassium Whole Blood 4.9 mmol/L (3.4-4.5); ABG Sodium Whole Blood 137 mmol/L (135-146); ABG TCO2 27 mmol/L (19-24)
[2018-08-15 13:33] LABS: ABG Base Excess -0.1 mmol/L; ABG HCO3 26 mmol/L (21-25); ABG Oxygen Saturation 99.6 % (94-97); ABG PCO2 45 mmHg (35-45); ABG PH 7.36 (7.35-7.45); ABG PO2 309 mmHg (83-108); ABG Potassium Whole Blood 4.9 mmol/L (3.4-4.5); ABG Sodium Whole Blood 138 mmol/L (135-146); ABG TCO2 27 mmol/L (19-24)
[2018-08-15 14:29] LABS: ABG Base Excess 0.6 mmol/L; ABG HCO3 28 mmol/L (21-25); ABG Oxygen Saturation 92.7 % (94-97); ABG PCO2 61 mmHg (35-45); ABG PH 7.28 (7.35-7.45); ABG PO2 72 mmHg (83-108); ABG Sodium Whole Blood 141 mmol/L (135-146); ABG TCO2 30 mmol/L (19-24)
[2018-08-15 14:50] LABS: ABG HCO3 27 mmol/L (21-25); ABG Oxygen Saturation 97.1 % (94-97); ABG PCO2 43 mmHg (35-45); ABG PH 7.41 (7.35-7.45); ABG PO2 86 mmHg (83-108); ABG Potassium Whole Blood 4.1 mmol/L (3.4-4.5); ABG Sodium Whole Blood 140 mmol/L (135-146); ABG TCO2 28 mmol/L (19-24)
[2018-08-15] MEDS ORDERED: Phosphorus Replacement Protoco 1 EACH MISC MISCELLANE PRN (15:28)
[2018-08-15] MEDS ORDERED: DEXTROSE 5% IN WATER 100 ML with AMIODARONE 150 MG IV PRN (15:28)
[2018-08-15] MEDS ORDERED: PROPOFOL 1,000 MG in EMPTY BAG 1 BAG IV SCH (15:28)
[2018-08-15] MEDS ORDERED: CALCIUM CHLORIDE 1,000 MG in SODIUM CHLORIDE 0.9% 100 ML IV PRN (15:28)
[2018-08-15] MEDS ORDERED: ALBUMIN HUMAN 5% 250 ML in EMPTY BAG 1 BAG IVPB PRN (15:28)
[2018-08-15] MEDS ORDERED: Potassium Replacement Protocol 1 EACH MISC MISCELLANE PRN (15:28)
[2018-08-15] MEDS ORDERED: Magnesium Replacement Protocol 1 EACH MISC MISCELLANE PRN (15:28)
[2018-08-15] MEDS ORDERED: IPRATROPIUM-ALBUTEROL 3 ML NEB INHALATION PRN (15:28)
[2018-08-15] MEDS ORDERED: NOREPINEPHRINE 4 MG in SODIUM CHLORIDE 0.9% 250 ML IV SCH (15:28)
[2018-08-15] MEDS ORDERED: NITROGLYCERIN-D5W PMX 50 MG in DEXTROSE/WATER 1 250ML.BAG IV SCH (15:28)
[2018-08-15] MEDS ORDERED: BENZOCAINE/MENTHOL LOZENG 1 EACH LOZENGE MUCOUS MEM PRN (15:28)
[2018-08-15] MEDS ORDERED: AMIODARONE 450 MG in DEXTROSE 5% IN WATER 250 ML IV PRN ×2 (15:28)
[2018-08-15] MEDS ORDERED: METOCLOPRAMIDE 5 MG/ML 2 ML VIAL IVP PRN (15:28)
[2018-08-15] MEDS ORDERED: BENZOCAINE SPRAY 1 CAN TOPICAL PRN (15:58)
[2018-08-15] MEDS ORDERED: IPRATROPIUM-ALBUTEROL 3 ML NEB INHALATION SCH (16:00)
[2018-08-15 16:05] LABS: Glucose,Whole Blood 84 mg/dL (75-99)
[2018-08-15 16:08] LABS: ABG Base Excess 0.5 mmol/L; ABG HCO3 28 mmol/L (21-25); ABG Oxygen Saturation 98.7 % (94-97); ABG PCO2 61 mmHg (35-45); ABG PH 7.27 (7.35-7.45); ABG PO2 139 mmHg (83-108); ABG TCO2 29 mmol/L (19-24)
--- NOTE | 2018-08-15 16:15 | XR ---
EXAMINATION TYPE: XR chest 1V portable DATE OF EXAM: 08/15/2018 COMPARISON: 07/05/2018 HISTORY: Post cardiac surgery TECHNIQUE: Single frontal view of the chest is obtained. FINDINGS: There is diffuse moderate pulmonary vascular congestion and interstitial edema. Trace righ t and small left pleural effusions blunt the costophrenic angles. Bibasilar airspace disease is seen. Right thoracostomy tube is present within the right midlung. No residual pneumothorax. [place] cat heter is in place from a right internal jugular approach. Endotracheal tube is appropriately placed t erminating at the level of aortic arch. Endotracheal tube passes beyond the gastroesophageal junction . Mediastinal drain is noted. Median sternotomy wires, aortic closure device and annuloplasty ring ar e present. IMPRESSION: Postoperative changes of the chest with lines and tubes as described above. Moderate new pulmonary vascular congestion and interstitial edema with trace right and small left pleural effusio ns are seen in addition to probable bibasilar atelectasis.
[2018-08-15] MEDS ORDERED: fentaNYL (PF) 50 MCG/ML 5 ML AMP IVP PRN (16:26)
[2018-08-15] MEDS ORDERED: DEXMEDETOMIDINE/0.9% NACL(PMX) 400 MCG in EMPTY BAG 1 BAG IV SCH (16:30)
[2018-08-15 16:36] LABS: Basophils % (A) 0 %; Eosinophils # (A) 0.1 k/uL (0-0.7); Eosinophils % (A) 1 %; HCT 31.1 % (39.0-53.0); Lymphocytes # (A) 1.7 k/uL (1.0-4.8); Lymphocytes % (A) 16 %; MCH 29.5 pg (25.0-35.0); MCHC 32.9 g/dL (31.0-37.0); MCV 89.7 fL (80.0-100.0); Mean Platelet Volume 8.4; Monocytes # (A) 0.8 k/uL (0-1.0); Monocytes % (A) 8 %; Neutrophils # (A) 7.4 k/uL (1.3-7.7); Neutrophils % (A) 73 %; Platelet Count 138 k/uL (150-450); RBC 3.47 m/uL (4.30-5.90); RDW 14.5 % (11.5-15.5); WBC 10.1 k/uL (3.8-10.6)
[2018-08-15 16:42] LABS: HGB 10.2 gm/dL (13.0-17.5)
[2018-08-15] MEDS: fentaNYL (PF) 50 MCG/ML 2 ML AMP IVP PRN ×2 (16:43→20:20)
[2018-08-15 16:49] LABS: Glucose,Whole Blood 113 mg/dL (75-99)
[2018-08-15 16:54] LABS: Partial Thromboplastin Time 24.2 sec (22.0-30.0); Prothrombin Time 10.9 sec (9.0-12.0)
[2018-08-15] MEDS: LACTATED RINGERS 1,000 ML IV SCH (17:03)
[2018-08-15] MEDS: ACETAMINOPHEN IV (For NPO) 1,000 MG in EMPTY BAG 1 BAG IVPB SCH ×2 (17:04→23:27)
--- NOTE | 2018-08-15 17:04 | P.CNPUL ---
History of Present Illness Consult date: 08/15/18 Chief complaint: Thoracotomy, MVR History of present illness: This is a 53-year-old male patient who is being seen in the intensive care unit following his mitral valve replacement surgery. The patient underwent mitral valve replacement, tissue valve, in addition to modified Wolf-Maze procedure, clipping of the appendage and 2 vessel bypass including a BINTA to RCA and SVG to OM1, and the patient is currently intubated on a mechanical ventilator in the intensive care unit. Chest x-ray shows increased vascular congestion. Orotracheal tube is in a good location. The patient has a right IJ Turner-Noman catheter in place. The patient also has a mediastinal and the left pleural chest tube. The blood gases showed a pH of 7.26 with a pCO2 of 60 and pO2 139. Based on this, I put the patient on avoidance cycle mode assist control at a rate of 20, tidal volume of 550, FiO2 is down to 60% and a PEEP of 20. Follow- up blood gases are still pending for now. Hemodynamically the patient is on no pressors. The patient's mean arterial pressures around 60 to and the patient be given IV albumin. Maintenance fluid is normal saline today to 50 mL an hour. Cardiac index is at 2.6. Pulmonary artery pressure nonelevated. Upper from the chest tube both mediastinal and pleural is a total of 130 mL since his arrival from the operating room. He is producing adequate amount of urine output. He is currently off sedation. He was given a dose of fentanyl 50 g for increased chest wall pain. His cardiac rhythm is paced at the rate of 85. Underlying cardiac rhythm is a block third-degree. Review of Systems ROS unobtainable: due to endotracheal tube Past Medical History Past Medical History: Atrial Fibrillation, Coronary Artery Disease (CAD), Heart Failure, GERD/Reflux, Hyperlipidemia, Hypertension, Sleep Apnea/CPAP/BIPAP Additional Past Medical History / Comment(s): . History of Any Multi-Drug Resistant Organisms: None Reported Past Surgical History: Appendectomy, Heart Catheterization With Stent Additional Past Surgical History / Comment(s): cardioversions x 3, stent to RCA, DYLAN X2,colonoscopy, EGD, Past Anesthesia/Blood Transfusion Reactions: No Reported Reaction Date of Last Stent Placement:: 01/22/18 Smoking Status: Former smoker - Past Family History Father Family Medical History: Congestive Heart Failure (CHF) Additional Family Medical History / Comment(s): Father from CHF at the age of 68yrs. Mother Family Medical History: No Reported History Additional Family Medical History / Comment(s): Mother at the age of 62 or 63 yrs from myasthenia gravis. Medications and Allergies Home Medications Medication Instructions Recorded Confirmed Type Multivitamin [Men's Multi-Vitamin] 1 tab PO DAILY 01/22/14 08/15/18 History Fish Oil/Dha/Epa [Fish Oil 1,200 1 cap PO DAILY 11/06/17 08/15/18 History mg Fish Oil] Atorvastatin [Lipitor] 80 mg PO HS #90 tab 01/24/18 08/15/18 Rx Nitroglycerin Sl Tabs [Nitrostat] 0.4 mg SUBLINGUAL Q5M PRN #25 tab 01/24/1802/25 Rx Citalopram Hydrobromide [CeleXA] 10 mg PO DAILY 04/14/18 08/15/18 History Omeprazole 20 mg PO DAILY 04/14/18 08/15/18 History Metoprolol Tartrate [Lopressor] 50 mg PO BID 05/08/18 08/15/18 History Furosemide [Lasix] 40 mg PO QAM 06/14/18 08/15/18 History Lisinopril [Zestril] 2.5 mg PO DAILY 30 Days #30 tab 06/16/18 08/15/18 Rx Furosemide [Lasix] 20 mg PO DAILY@1600 07/04/18 08/15/18 History Umeclidinium Brm/Vilanterol Tr 1 puff INHALATION RT-DAILY 07/04/18 08/15/18 History [Anoro Ellipta 62.5-25 Mcg INH] Amiodarone [Cordarone] 200 mg PO TID #90 tab 07/26/18 08/15/18 Rx Aspirin 81 mg PO DAILY 08/12/18 08/15/18 History Clopidogrel [Plavix] 75 mg PO DAILY 08/15/18 08/15/18 History Rivaroxaban [Xarelto] 20 mg PO DAILY 08/15/18 08/15/18 History Umeclidinium Brm/Vilanterol Tr 62.5 mcg INHALATION DAILY 08/15/18 08/15/18 History [Anoro Ellipta 62.5-25 Mcg INH] Allergies Allergy/AdvReac Type Severity Reaction Status Date / Time Penicillins Allergy Unknown Verified 08/15/18 16:17 Childhood Physical Exam Vitals: Vital Signs Temp Pulse Pulse Resp BP BP Pulse Ox 08/15/18 16:33 88 08/15/18 05:57 97.7 F 60 16 139/80 141/72 98 Intake and Output 08/15/18 08/15/18 08/15/18 06:59 14:59 22:59 Intake Total 32 Output Total 2500 Balance 32 -2500 Intake: IV 32 Output: Urine 700 Estimated Blood Loss 1800 Other: Weight 119.2 kg Gen. appearance, comfortable likely distress, arousable, gabapentin for pain. Currently the patient is off Diprivan. Head exam was generally normal. There was no scleral icterus or corneal arcus. Mucous membranes were moist. Neck was supple and without jugular venous distension, thyromegaly, or carotid bruits. Carotids were easily palpable bilaterally. There was no adenopathy. The patient has a right IJ Turner-Noman catheter in place. Lungs sounds are diminished bilaterally. Breath sounds are equal and symmetrical. No wheezes. No rhonchi. Sternum stable clean and intact. The patient has a chest tube in the right pleura. Cardiac exam revealed the PMI to be normally situated and sized. The rhythm was regular and no extrasystoles were noted during several minutes of auscultation. The first and second heart sounds were normal and physiologic splitting of the second heart sound was noted. There were no murmurs, rubs, clicks, or gallops. The patient rhythm is paced at the rate of 85. Abdominal exam revealed normal bowel sounds. The abdomen was soft, non-tender, and without masses, organomegaly, or appreciable enlargement of the abdominal aorta. Examination of the extremities revealed easily palpable radial, femoral and pedal pulses. There was no cyanosis, clubbing or edema. Examination of the skin revealed no evidence of significant rashes, suspicious appearing nevi or other concerning lesions. Neurologically arousable yet still sedated. Pupils are equal and reactive to light. Results - Laboratory Findings CBC and BMP: 08/15/18 15:55 ABG ABG pH 7.41 (7.35-7.45) 08/15/18 14:48 ABG pCO2 43 mmHg (35-45) 08/15/18 14:48 ABG pO2 86 mmHg (83-108) 08/15/18 14:48 ABG O2 Saturation 97.1 % (94-97) H 08/15/18 14:48 Abnormal lab findings: Abnormal Labs 08/12/18 08/15/18 08/15/18 11:24 09:01 10:18 RBC Hgb Hct Plt Count ABG pH ABG pCO2 48 H ABG pO2 309 H 190 H ABG HCO3 27 H 28 H ABG Total CO2 29 H 29 H ABG O2 Saturation 99.7 H 99.3 H ABG Hematocrit ABG Potassium 5.4 H ABG Ionized Calcium ABG Glucose 106 H 120 H ABG Lactic Acid Hemoglobin 12.0 L 11.8 L POC Glucose (mg/dL) Arterial Blood Potassium 5.4 H Arterial Blood Glucose 106 H 120 H Crossmatch See Detail 08/15/18 08/15/18 08/15/18 11:08 12:04 12:29 RBC Hgb Hct Plt Count ABG pH 7.27 L 7.32 L ABG pCO2 60 H 51 H ABG pO2 217 H 326 H 313 H ABG HCO3 26 H 27 H 26 H ABG Total CO2 27 H 29 H 28 H ABG O2 Saturation 99.6 H 99.6 H 99.6 H ABG Hematocrit 28 L 29 L 29 L ABG Potassium 4.9 H 5.0 H 5.2 H ABG Ionized Calcium 4.4 L ABG Glucose 180 H 162 H 163 H ABG Lactic Acid 2.0 H 1.9 H Hemoglobin 9.1 L 9.5 L 9.3 L POC Glucose (mg/dL) Arterial Blood Potassium 4.9 H 5.0 H 5.2 H Arterial Blood Glucose 180 H 162 H 163 H Crossmatch 08/15/18 08/15/18 08/15/18 13:02 13:31 14:27 RBC Hgb Hct Plt Count ABG pH 7.28 L ABG pCO2 61 H ABG pO2 351 H 309 H 72 L ABG HCO3 26 H 28 H ABG Total CO2 27 H 27 H 30 H ABG O2 Saturation 99.7 H 99.6 H 92.7 L ABG Hematocrit 28 L 28 L 30 L ABG Potassium 4.9 H 4.9 H ABG Ionized Calcium ABG Glucose 151 H 137 H 108 H ABG Lactic Acid 1.8 H 2.3 H* Hemoglobin 9.1 L 9.1 L 9.8 L POC Glucose (mg/dL) Arterial Blood Potassium 4.9 H 4.9 H Arterial Blood Glucose 151 H 137 H 108 H Crossmatch 08/15/18 08/15/18 08/15/18 14:48 15:55 16:37 RBC 3.47 L Hgb 10.2 L D Hct 31.1 L Plt Count 138 L ABG pH ABG pCO2 ABG pO2 ABG HCO3 27 H ABG Total CO2 28 H ABG O2 Saturation 97.1 H ABG Hematocrit 31 L ABG Potassium ABG Ionized Calcium ABG Glucose ABG Lactic Acid Hemoglobin 10.0 L POC Glucose (mg/dL) 113 H Arterial Blood Potassium Arterial Blood Glucose Crossmatch - Diagnostic Findings Chest x-ray: image reviewed Assessment and Plan Plan: Assessment 1 mitral valve replacement, mechanical valve, in addition to 2 vessel bypass surgery and clipping of the atrial appendage. Patient is postop day #0 2 post thoracotomy, currently intubated on a mechanical ventilator. Chest x- ray reveals adequate expansion of both lungs. Chest tubes are in place. The patient has some increased pulmonary vascular congestion. Currently on FiO2 of 60% with a PEEP of 10. There is a component of respiratory acidosis and the blood gases in the tidal volume was kept at 550 and the respiratory rate was increased up to 20 3 known history of coronary artery disease with previous stenting of RCA 4 history of severe mitral regurgitation with the current hospital physician Jose ochen and pulmonary edema 5 history of chronic atrial fibrillation, current rhythm is paced at the rate of 85 and underlying postop cardiac rhythm is third-degree AV block 6 history of left atrial appendage clot 7 history of sleep apnea combination of obstructive and central he was being treated with CPAP at a pressure of 9 cm of water 8 hypertension 9 diverticular disease 10 gentle arthritis Plan Keep the patient off sedation. Necessary vent changes were now. Repeat blood gases. Monitor oxygenation and gradually wean down the FiO2 to maintain a saturation above 90%. Keep yesterday to 20. Tidal volume of 550. Monitor hemodynamic parameters. Cardiac index is at 2.6. Monitor the output from the chest tube which is minimal at this point. Keep the rhythm paced at the rate of 85. Overall condition is stable. We'll continue following up this patient' s progress in the ICU, anticipate extubation within next 4-6 hours if with able to wean down the FiO2 and improve oxygenation and ventilation. We'll continue to follow.
[2018-08-15] MEDS: CLEVIDIPINE BUTYRATE 25 MG in EMPTY BAG 1 BAG IV SCH (17:30)
[2018-08-15 17:36] LABS: ABG Base Excess 0.4 mmol/L; ABG HCO3 26 mmol/L (21-25); ABG Oxygen Saturation 97.1 % (94-97); ABG PCO2 48 mmHg (35-45); ABG PH 7.34 (7.35-7.45); ABG PO2 107 mmHg (83-108); ABG TCO2 28 mmol/L (19-24)
[2018-08-15 17:42] LABS: Glucose,Whole Blood 118 mg/dL (75-99)
--- NOTE | 2018-08-15 18:08 | OP ---
OPERATIVE REPORT DATE OF OPERATION: 08/15/2018. ATTENDING SURGEON: Dr. Jose Kaur. PREOPERATIVE DIAGNOSES: 1. Mitral regurgitation. 2. Mitral stenosis. 3. Atrial fibrillation. 4. Coronary artery disease. POSTOPERATIVE DIAGNOSES: 1. Mitral regurgitation. 2. Mitral stenosis. 3. Atrial fibrillation. 4. Coronary artery disease. PROCEDURE: 1. Mitral valve replacement with a #31/33 On-X mechanical mitral valve. 2. Coronary bypass grafting x2 with right internal mammary artery to the right coronary artery, reverse saphenous vein graft of the aorta to the second obtuse marginal artery. 3. Clip ligation of the left atrial appendage with a #40 mm AtriClip. 4. Complete left-sided Maze procedure using radiofrequency and cryoablation. 5. Intraoperative transesophageal echocardiogram. ANESTHESIA: General. BLOOD LOSS: 500 mL. SUMMARY: The patient was brought to the operating room and placed in supine position, with administration of general endotracheal anesthetic, placement of a [place]-Noman catheter, arterial line, adequate IV access, [place] catheter. The patient was carefully prepped and draped in a sterile fashion using Betadine paint and sterile towels. The greater saphenous vein was harvested from the left lower extremity via endovascular vein harvesting technique. All branches were doubly tied and divided and the incisions closed in 2 layers. A midline incision in the chest was made and the sternum divided. Pericardium was opened. The heart size was mildly enlarged. The aorta was soft. Right pleural space was then opened and right internal mammary artery harvested as a pedicle from the xiphoid to the subclavian vein. It was of 2 mm quality with excellent flow. The patient was heparinized to an AST of greater than 480. The aorta and 2 single-stage venous cannulas were placed. Antegrade and retrograde cardioplegic catheters were positioned in the ascending aorta and the coronary sinus. Patient was placed on bypass, cross-clamp placed, heart arrested with 1 L of antegrade followed by 500 mL retrograde cardioplegia. Retrograde cardioplegia was delivered, 3 to 500 mL at the end of each 20-minute interval. First, the base of the left atrial appendage was measured to a 40 mm AtriClip. Clip was brought into the field, opened and secured at the base, sufficiently obliterating the left atrial appendage. Next, a single distal anastomosis with saphenous vein was constructed using 7-0 Prolene running suture to the distal circumflex. This was a 2 mm vessel. Under a single cross-clamp, a single proximal anastomosis was constructed in the ascending aorta using 6-0 Prolene running suture. At this point, both the right and left sets of pulmonary veins were isolated with a red rubber catheter. Using the AtriCure radiofrequency ablation clamp, 3 sets of ablation lines were created across each set of pulmonary veins. At this point the left atrium was then opened at the junction of the right superior pulmonary vein. A handheld retractor was placed. Three ablation lines as a roof lesion between the right and left pulmonary vein set and then 3 ablation lines as the floor lesions were connected. At this point, using the cryoablation, the mitral annular cryoablation line between the right pulmonary vein box lesion and the mitral anulus was performed, followed by a cryolesion on the epicardium of the heart across the coronary sinus connecting to the mitral annular lesion. At this point the mitral valve was identified. It was a very thickened mitral valve with very thickened and foreshortened chordae tendineae down to the papillary muscles. The leaflets were excised. The chordae were excised due to the thickened nature. These were sent to Pathology and appeared very much to be rheumatic in nature. At this point, it sized to a 31/33 On-X mechanical mitral valve. Tycron 2-0 pledgetted sutures were placed circumferentially, atrially based, and using an everting technique they were passed through the sewing cuff of the valve which was seated and seated well. All sutures were then secured using the Cor-Knot ligature system. The valve leaflets were aligned vertically for best excursion. The atrium was then closed in a double-layered pledgeted 4-0 Prolene vertical mattress followed by an over-and- over stitch from both sides. At this point, the right internal mammary was beveled, and distal anastomosis to the mid right coronary artery was constructed using a 7-0 Prolene running suture. Caliber of this vessel was 1.75 mm. Complete de-airing maneuvers were then performed. One liter of warm blood retrograde cardioplegia was run. Cross-clamp was then removed. The patient was paced DDD at 80, bolused with half a load of Primacor, started on a mild dose of Levophed and brought off bypass. He came off bypass uneventfully with good hemodynamics, protamine delivered. Patient was decannulated. Atrial and ventricular pacing wires place. Mediastinal and right pleural chest tubes were placed. At this point the sternum was closed with five #6 sternal wires and two [id number] [place] cable devices. There were no complications. Skin and subcutaneous tissue and fascia were closed in 3 layers. No complications. Patient tolerated the procedure well and was taken to the cardiovascular intensive care unit in stable condition. MMODL / IJN: [id number] /
[2018-08-15] MEDS: ceFAZolin IN SWFI 2 GM/20 ML SYRINGE IVP SCH ×2 (18:26→23:28)
[2018-08-15 18:32] LABS: ABG HCO3 26 mmol/L (21-25); ABG Oxygen Saturation 96.9 % (94-97); ABG PCO2 50 mmHg (35-45); ABG PH 7.32 (7.35-7.45); ABG PO2 104 mmHg (83-108); ABG TCO2 28 mmol/L (19-24)
[2018-08-15 18:43] LABS: Glucose,Whole Blood 133 mg/dL (75-99)
[2018-08-15 19:23] LABS: Glucose,Whole Blood 146 mg/dL (75-99)
[2018-08-15 19:32] LABS: Basophils % (A) 0 %; Eosinophils % (A) 0 %; Lymphocytes # (A) 0.9 k/uL (1.0-4.8); Lymphocytes % (A) 8 %; MCH 29.4 pg (25.0-35.0); MCHC 32.3 g/dL (31.0-37.0); MCV 90.9 fL (80.0-100.0); Mean Platelet Volume 8.8; Monocytes % (A) 8 %; Neutrophils # (A) 10.2 k/uL (1.3-7.7); Neutrophils % (A) 83 %; Platelet Count 158 k/uL (150-450); RBC 3.41 m/uL (4.30-5.90); RDW 14.6 % (11.5-15.5); WBC 12.4 k/uL (3.8-10.6)
[2018-08-15 20:22] LABS: ALT 46 U/L (21-72); AST 143 U/L (17-59); Albumin 3.4 g/dL (3.5-5.0); Alkaline Phosphatase 57 U/L (38-126); Anion Gap 7 mmol/L; Blood Urea Nitrogen 18 mg/dL (9-20); Carbon Dioxide 24 mmol/L (22-30); Chloride 109 mmol/L (98-107); Glucose 123 mg/dL (74-99); Magnesium 2.2 mg/dL (1.6-2.3); Potassium 5.1 mmol/L (3.5-5.1); Sodium 140 mmol/L (137-145); Total Bilirubin 1.5 mg/dL (0.2-1.3); Total Protein 5.5 g/dL (6.3-8.2)
[2018-08-15] MEDS: IPRATROPIUM-ALBUTEROL 3 ML NEB INHALATION SCH (20:31)
[2018-08-15 20:41] LABS: Glucose,Whole Blood 138 mg/dL (75-99)
[2018-08-15] MEDS: MUPIROCIN 2% OINT 22 GM TUBE NASAL SCH (21:16)
[2018-08-15] MEDS: INSULIN REGULAR 100 UNIT in SODIUM CHLORIDE 0.9% 100 ML IV SCH (21:23)
[2018-08-15 21:30] LABS: Glucose,Whole Blood 133 mg/dL (75-99)
[2018-08-15 22:19] LABS: Glucose,Whole Blood 137 mg/dL (75-99)
[2018-08-15 22:47] LABS: Basophils % (A) 0 %; Eosinophils % (A) 0 %; HCT 29.9 % (39.0-53.0); HGB 9.8 gm/dL (13.0-17.5); Lymphocytes # (A) 0.6 k/uL (1.0-4.8); Lymphocytes % (A) 5 %; MCH 29.4 pg (25.0-35.0); MCHC 32.7 g/dL (31.0-37.0); MCV 89.8 fL (80.0-100.0); Mean Platelet Volume 8.7; Monocytes # (A) 0.8 k/uL (0-1.0); Monocytes % (A) 7 %; Neutrophils % (A) 86 %; Platelet Count 153 k/uL (150-450); RBC 3.33 m/uL (4.30-5.90); RDW 14.6 % (11.5-15.5); WBC 11.7 k/uL (3.8-10.6)
[2018-08-15] MEDS: HEPARIN SODIUM,PORCINE 5,000 UNIT/ML 1 ML VIAL SQ SCH (23:28)
[2018-08-15 23:41] LABS: Glucose,Whole Blood 162 mg/dL (75-99)
[2018-08-16] MEDS: HEPARIN SODIUM,PORCINE 5,000 UNIT/ML 1 ML VIAL SQ SCH ×4 (00:23→23:25)
[2018-08-16 00:28] LABS: Glucose,Whole Blood 144 mg/dL (75-99)
[2018-08-16 01:28] LABS: Glucose,Whole Blood 144 mg/dL (75-99)
[2018-08-16 02:33] LABS: Glucose,Whole Blood 154 mg/dL (75-99)
[2018-08-16 03:14] LABS: Glucose,Whole Blood 153 mg/dL (75-99)
[2018-08-16 04:23] LABS: Glucose,Whole Blood 158 mg/dL (75-99)
[2018-08-16 05:05] LABS: Basophils % (A) 0 %; Eosinophils % (A) 0 %; HCT 31.1 % (39.0-53.0); Lymphocytes # (A) 0.7 k/uL (1.0-4.8); Lymphocytes % (A) 5 %; MCH 29.6 pg (25.0-35.0); MCHC 32.2 g/dL (31.0-37.0); Monocytes # (A) 0.8 k/uL (0-1.0); Monocytes % (A) 6 %; Neutrophils # (A) 11.1 k/uL (1.3-7.7); Neutrophils % (A) 88 %; Platelet Count 165 k/uL (150-450); RBC 3.39 m/uL (4.30-5.90); RDW 14.9 % (11.5-15.5); WBC 12.7 k/uL (3.8-10.6)
[2018-08-16 05:17] LABS: ALT 50 U/L (21-72); AST 163 U/L (17-59); Albumin 3.6 g/dL (3.5-5.0); Alkaline Phosphatase 40 U/L (38-126); Anion Gap 9 mmol/L; Blood Urea Nitrogen 22 mg/dL (9-20); Calcium 8.9 mg/dL (8.4-10.2); Carbon Dioxide 24 mmol/L (22-30); Chloride 107 mmol/L (98-107); Glucose 135 mg/dL (74-99); Potassium 4.9 mmol/L (3.5-5.1); Sodium 140 mmol/L (137-145); Total Bilirubin 1.2 mg/dL (0.2-1.3); Total Protein 5.6 g/dL (6.3-8.2)
[2018-08-16 05:20] LABS: INR 0.9 (<1.2)
[2018-08-16] MEDS ORDERED: Magnesium Replacement Protocol 1 EACH MISC MISCELLANE PRN ×2 (05:20→05:48)
[2018-08-16 05:21] LABS: Glucose,Whole Blood 146 mg/dL (75-99)
[2018-08-16] MEDS: ACETAMINOPHEN IV (For NPO) 1,000 MG in EMPTY BAG 1 BAG IVPB SCH ×3 (05:23→19:25)
[2018-08-16 05:26] LABS: Partial Thromboplastin Time 21.6 sec (22.0-30.0)
[2018-08-16] MEDS: MAGNESIUM SULFATE-D5W PMX 1 GM in DEXTROSE/WATER 1 100ML.BAG IVPB SCH ×2 (06:00→08:38)
[2018-08-16 06:21] LABS: Glucose,Whole Blood 130 mg/dL (75-99)
[2018-08-16 07:13] LABS: Glucose,Whole Blood 152 mg/dL (75-99)
[2018-08-16] MEDS: IPRATROPIUM-ALBUTEROL 3 ML NEB INHALATION SCH ×4 (07:50→19:51)
[2018-08-16] MEDS: KETOROLAC 30 MG/ML 1 ML VIAL IVP SCH ×4 (07:51→23:25)
[2018-08-16] MEDS ORDERED: FUROSEMIDE 10 MG/ML 2 ML VIAL IV ONE (08:09)
--- NOTE | 2018-08-16 08:14 | P.CONS ---
History of Present Illness - Reason for Consult Consult date: 08/16/18 Medical managment - Chief Complaint Sp Mitral valve repair - History of Present Illness This is a consultation note on a 53-year-old white male essentially admitted for mitral valve repair. He has an underlying history of COPD with atrial fibrillation which is been very difficult to control over the last 6 months. The patient seems to be doing quite well today. No sniffing nausea or vomiting. Status post mitral valve replacement with postop pain control. No fever or chills stated. No significant nausea, vomiting or diarrhea is stated. Review of Systems Constitutional: Denies chills, Denies fever Eyes: denies blurred vision, denies pain Ears, nose, mouth and throat: Denies headache, Denies sore throat Cardiovascular: Reports chest pain, Denies shortness of breath Respiratory: Denies cough Gastrointestinal: Denies abdominal pain, Denies diarrhea, Denies nausea, Denies vomiting Musculoskeletal: Denies myalgias Past Medical History Past Medical History: Atrial Fibrillation, Coronary Artery Disease (CAD), Heart Failure, GERD/Reflux, Hyperlipidemia, Hypertension, Sleep Apnea/CPAP/BIPAP Additional Past Medical History / Comment(s): . History of Any Multi-Drug Resistant Organisms: None Reported Past Surgical History: Appendectomy, Heart Catheterization With Stent Additional Past Surgical History / Comment(s): cardioversions x 3, stent to RCA, DYLAN X2,colonoscopy, EGD, Past Anesthesia/Blood Transfusion Reactions: No Reported Reaction Date of Last Stent Placement:: 01/22/18 Smoking Status: Former smoker - Past Family History Father Family Medical History: Congestive Heart Failure (CHF) Additional Family Medical History / Comment(s): Father from CHF at the age of 68yrs. Mother Family Medical History: No Reported History Additional Family Medical History / Comment(s): Mother at the age of 62 or 63 yrs from myasthenia gravis. Medications and Allergies Home Medications Medication Instructions Recorded Confirmed Type Multivitamin [Men's Multi-Vitamin] 1 tab PO DAILY 01/22/14 08/15/18 History Fish Oil/Dha/Epa [Fish Oil 1,200 1 cap PO DAILY 11/06/17 08/15/18 History mg Fish Oil] Atorvastatin [Lipitor] 80 mg PO HS #90 tab 01/24/18 08/15/18 Rx Nitroglycerin Sl Tabs [Nitrostat] 0.4 mg SUBLINGUAL Q5M PRN #25 tab 01/24/1802/25 Rx Citalopram Hydrobromide [CeleXA] 10 mg PO DAILY 04/14/18 08/15/18 History Omeprazole 20 mg PO DAILY 04/14/18 08/15/18 History Metoprolol Tartrate [Lopressor] 50 mg PO BID 05/08/18 08/15/18 History Furosemide [Lasix] 40 mg PO QAM 06/14/18 08/15/18 History Lisinopril [Zestril] 2.5 mg PO DAILY 30 Days #30 tab 06/16/18 08/15/18 Rx Furosemide [Lasix] 20 mg PO DAILY@1600 07/04/18 08/15/18 History Umeclidinium Brm/Vilanterol Tr 1 puff INHALATION RT-DAILY 07/04/18 08/15/18 History [Anoro Ellipta 62.5-25 Mcg INH] Amiodarone [Cordarone] 200 mg PO TID #90 tab 07/26/18 08/15/18 Rx Aspirin 81 mg PO DAILY 08/12/18 08/15/18 History Clopidogrel [Plavix] 75 mg PO DAILY 08/15/18 08/15/18 History Rivaroxaban [Xarelto] 20 mg PO DAILY 08/15/18 08/15/18 History Umeclidinium Brm/Vilanterol Tr 62.5 mcg INHALATION DAILY 08/15/18 08/15/18 History [Anoro Ellipta 62.5-25 Mcg INH] Allergies Allergy/AdvReac Type Severity Reaction Status Date / Time Penicillins Allergy Unknown Verified 08/15/18 16:17 Childhood Physical Exam Vitals: Vital Signs Temp Pulse Pulse Pulse Pulse Resp Pulse Ox 08/16/18 08:02 82 08/16/18 07:50 80 94 L 08/16/18 07:00 80 21 96 08/16/18 06:00 79 16 97 08/16/18 05:00 80 11 L 95 08/16/18 04:30 79 20 94 L 08/16/18 04:00 80 12 94 L 08/16/18 03:00 78 16 95 08/16/18 02:00 79 16 95 08/16/18 01:00 80 11 L 96 08/16/18 00:30 80 15 96 08/16/18 00:00 80 80 80 80 14 08/15/18 23:30 80 17 93 L 08/15/18 23:00 80 11 L 96 08/15/18 22:30 80 32 H 96 08/15/18 22:00 80 15 96 08/15/18 21:30 83 8 L 94 L 08/15/18 21:00 97.9 F 85 10 L 96 08/15/18 20:47 84 08/15/18 20:31 88 08/15/18 20:30 80 7 L 95 08/15/18 20:00 80 80 80 08/15/18 19:30 86 16 93 L 08/15/18 19:00 86 18 93 L 08/15/18 18:54 93 L 08/15/18 18:45 84 23 96 08/15/18 18:30 85 20 96 08/15/18 18:15 85 20 96 08/15/18 18:00 86 20 95 08/15/18 17:45 84 20 96 08/15/18 17:30 84 20 96 08/15/18 17:15 89 20 95 08/15/18 17:00 90 20 96 08/15/18 16:50 90 08/15/18 16:45 84 20 99 08/15/18 16:33 88 08/15/18 16:30 91 18 99 08/15/18 16:15 90 23 99 08/15/18 16:00 92 18 97 08/15/18 15:45 85 18 98 08/15/18 15:37 84 18 08/15/18 15:28 96 Intake and Output 08/15/18 08/16/18 08/16/18 22:59 06:59 14:59 Intake Total 024.036 5517.282 282.975 Output Total 3380 695 160 Balance -2711.759 690.282 122.975 Intake: IV 417.5 624.0 160.5 ACETAMINOPHEN IV (For NPO 100 ) 1,000 mg In Empty Bag 1 bag @ 400 mls/hr IVPB Q6HR [facility] Rx#:[id number] CO/CI 30 90 Lactated Ringers 1,000 ml 350 350 50 @ 50 mls/hr IV .Q20H [facility] Rx#:[id number] Magnesium Sulfate-D5w Pmx 100 1 gm In Dextrose/Water 1 100ml.bag @ 100 mls/hr IVPB Q1H [facility] Rx#: [id number] Nitroglycerin-D5w Pmx 50 10.5 12.0 1.5 mg In Dextrose/Water 1 250ml.bag @ 5 MCG/MIN 1.5 mls/hr IV .Q24H [facility] Rx#: [id number] art,cvp,pa line 27 72 9 Intake, IV Titration 0.741 41.282 2.475 Amount Heparin Sodium,Porcine 5, 20 000 unit In Sodium Chloride 0.9% 500 ml 500 ml @ Per Protocol IV ONCE ONE Rx#:[id number] Insulin Regular 100 unit 0.741 21.282 2.475 In Sodium Chloride 0.9% 100 ml @ Per Protocol IV .Q0M [facility] Rx#:[id number] Oral 240 120 Blood Product 480 Lipid 250 Albumin Human 5% 250 ml 250 In Empty Bag 1 bag @ 250 mls/hr IVPB Q1HR PRN Rx#: [id number] Output: Chest Tube Drainage 455 150 100 Chest Tube Right Pleural/ 455 150 100 Mediastinal Urine 1125 345 60 Emesis 200 Estimated Blood Loss 1800 Other: Voiding Method Indwelling Catheter Indwelling Catheter # Bowel Movements 65 Weight 123 kg ABP, PAP, CO, CI - Last 8 Hours Arterial Blood Pressure 106/56 Arterial Blood Pressure 99/53 Arterial Blood Pressure 112/106 Arterial Blood Pressure 107/60 Arterial Blood Pressure 108/56 Arterial Blood Pressure 91/57 Arterial Blood Pressure 98/57 Arterial Blood Pressure 82/55 Pulmonary Artery Pressure 33/14 Pulmonary Artery Pressure 28/13 Pulmonary Artery Pressure 25/14 Pulmonary Artery Pressure 35/17 Pulmonary Artery Pressure 31/19 Pulmonary Artery Pressure 46/26 Pulmonary Artery Pressure 39/23 Pulmonary Artery Pressure 36/19 Pulmonary Artery Pressure 40/20 Cardiac Output 7.3 Cardiac Output 7.3 Cardiac Output 7.3 Cardiac Output 6.3 Cardiac Output 6.3 Cardiac Output 6.3 Cardiac Index 3.1 - Constitutional General appearance: no acute distress - EENT Eyes: EOMI - Neck Neck: no lymphadenopathy - Respiratory Respiratory: bilateral: CTA - Cardiovascular Rhythm: regular Heart sounds: normal: S1, S2 Abnormal Heart Sounds: no S3 Gallop - Gastrointestinal General gastrointestinal: soft, no tenderness - Integumentary Integumentary: no cyanotic - Neurologic Neurologic: CNII-XII intact Results CBC & Chem 7: 08/16/18 04:55 08/16/18 04:55 Labs: Abnormal Lab Results - Last 24 Hours (Table) 08/12/18 08/15/18 08/15/18 Range/Units 11:24 09:01 10:18 WBC (3.8-10.6) k/uL RBC (4.30-5.90) m/uL Hgb (13.0-17.5) gm/dL Hct (39.0-53.0) % Plt Count (150-450) k/uL Neutrophils # (1.3-7.7) k/uL Lymphocytes # (1.0-4.8) k/uL APTT (22.0-30.0) sec ABG pH (7.35-7.45) ABG pCO2 48 H (35-45) mmHg ABG pO2 309 H 190 H (83-108) mmHg ABG HCO3 27 H 28 H (21-25) mmol/L ABG Total CO2 29 H 29 H (19-24) mmol/L ABG O2 Saturation 99.7 H 99.3 H (94-97) % ABG Hematocrit (34.0-46.0) % ABG Potassium 5.4 H (3.4-4.5) mmol/L ABG Ionized Calcium (4.5-5.3) mg/dL ABG Glucose 106 H 120 H (75-99) mg/dL ABG Lactic Acid (0.5-1.6) mmol/L Hemoglobin 12.0 L 11.8 L (13.0-17.5) gm/dL Chloride (98-107) mmol/L BUN (9-20) mg/dL Glucose (74-99) mg/dL POC Glucose (mg/dL) (75-99) mg/dL Total Bilirubin (0.2-1.3) mg/dL AST (17-59) U/L Total Protein (6.3-8.2) g/dL Albumin (3.5-5.0) g/dL Arterial Blood Potassium 5.4 H (3.4-4.5) mmol/L Arterial Blood Glucose 106 H 120 H (75-99) mg/dL Crossmatch See Detail 08/15/18 08/15/18 08/15/18 Range/Units 11:08 12:04 12:29 WBC (3.8-10.6) k/uL RBC (4.30-5.90) m/uL Hgb (13.0-17.5) gm/dL Hct (39.0-53.0) % Plt Count (150-450) k/uL Neutrophils # (1.3-7.7) k/uL Lymphocytes # (1.0-4.8) k/uL APTT (22.0-30.0) sec ABG pH 7.27 L 7.32 L (7.35-7.45) ABG pCO2 60 H 51 H (35-45) mmHg ABG pO2 217 H 326 H 313 H (83-108) mmHg ABG HCO3 26 H 27 H 26 H (21-25) mmol/L ABG Total CO2 27 H 29 H 28 H (19-24) mmol/L ABG O2 Saturation 99.6 H 99.6 H 99.6 H (94-97) % ABG Hematocrit 28 L 29 L 29 L (34.0-46.0) % ABG Potassium 4.9 H 5.0 H 5.2 H (3.4-4.5) mmol/L ABG Ionized Calcium 4.4 L (4.5-5.3) mg/dL ABG Glucose 180 H 162 H 163 H (75-99) mg/dL ABG Lactic Acid 2.0 H 1.9 H (0.5-1.6) mmol/L Hemoglobin 9.1 L 9.5 L 9.3 L (13.0-17.5) gm/dL Chloride (98-107) mmol/L BUN (9-20) mg/dL Glucose (74-99) mg/dL POC Glucose (mg/dL) (75-99) mg/dL Total Bilirubin (0.2-1.3) mg/dL AST (17-59) U/L Total Protein (6.3-8.2) g/dL Albumin (3.5-5.0) g/dL Arterial Blood Potassium 4.9 H 5.0 H 5.2 H (3.4-4.5) mmol/L Arterial Blood Glucose 180 H 162 H 163 H (75-99) mg/dL Crossmatch 12/06/18 12/06/18 12/06/18 Range/Units 13:02 13:31 14:27 WBC (3.8-10.6) k/uL RBC (4.30-5.90) m/uL Hgb (13.0-17.5) gm/dL Hct (39.0-53.0) % Plt Count (150-450) k/uL Neutrophils # (1.3-7.7) k/uL Lymphocytes # (1.0-4.8) k/uL APTT (22.0-30.0) sec ABG pH 7.28 L (7.35-7.45) ABG pCO2 61 H (35-45) mmHg ABG pO2 351 H 309 H 72 L (83-108) mmHg ABG HCO3 26 H 28 H (21-25) mmol/L ABG Total CO2 27 H 27 H 30 H (19-24) mmol/L ABG O2 Saturation 99.7 H 99.6 H 92.7 L (94-97) % ABG Hematocrit 28 L 28 L 30 L (34.0-46.0) % ABG Potassium 4.9 H 4.9 H (3.4-4.5) mmol/L ABG Ionized Calcium (4.5-5.3) mg/dL ABG Glucose 151 H 137 H 108 H (75-99) mg/dL ABG Lactic Acid 1.8 H 2.3 H* (0.5-1.6) mmol/L Hemoglobin 9.1 L 9.1 L 9.8 L (13.0-17.5) gm/dL Chloride (98-107) mmol/L BUN (9-20) mg/dL Glucose (74-99) mg/dL POC Glucose (mg/dL) (75-99) mg/dL Total Bilirubin (0.2-1.3) mg/dL AST (17-59) U/L Total Protein (6.3-8.2) g/dL Albumin (3.5-5.0) g/dL Arterial Blood Potassium 4.9 H 4.9 H (3.4-4.5) mmol/L Arterial Blood Glucose 151 H 137 H 108 H (75-99) mg/dL Crossmatch 08/15/18 08/15/18 08/15/18 Range/Units 14:48 15:55 16:06 WBC (3.8-10.6) k/uL RBC 3.47 L (4.30-5.90) m/uL Hgb 10.2 L D (13.0-17.5) gm/dL Hct 31.1 L (39.0-53.0) % Plt Count 138 L (150-450) k/uL Neutrophils # (1.3-7.7) k/uL Lymphocytes # (1.0-4.8) k/uL APTT (22.0-30.0) sec ABG pH 7.27 L (7.35-7.45) ABG pCO2 61 H (35-45) mmHg ABG pO2 139 H (83-108) mmHg ABG HCO3 27 H 28 H (21-25) mmol/L ABG Total CO2 28 H 29 H (19-24) mmol/L ABG O2 Saturation 97.1 H 98.7 H (94-97) % ABG Hematocrit 31 L (34.0-46.0) % ABG Potassium (3.4-4.5) mmol/L ABG Ionized Calcium (4.5-5.3) mg/dL ABG Glucose (75-99) mg/dL ABG Lactic Acid (0.5-1.6) mmol/L Hemoglobin 10.0 L (13.0-17.5) gm/dL Chloride (98-107) mmol/L BUN (9-20) mg/dL Glucose (74-99) mg/dL POC Glucose (mg/dL) (75-99) mg/dL Total Bilirubin (0.2-1.3) mg/dL AST (17-59) U/L Total Protein (6.3-8.2) g/dL Albumin (3.5-5.0) g/dL Arterial Blood Potassium (3.4-4.5) mmol/L Arterial Blood Glucose (75-99) mg/dL Crossmatch 08/15/18 08/15/18 08/15/18 Range/Units 16:37 17:31 17:34 WBC (3.8-10.6) k/uL RBC (4.30-5.90) m/uL Hgb (13.0-17.5) gm/dL Hct (39.0-53.0) % Plt Count (150-450) k/uL Neutrophils # (1.3-7.7) k/uL Lymphocytes # (1.0-4.8) k/uL APTT (22.0-30.0) sec ABG pH 7.34 L (7.35-7.45) ABG pCO2 48 H (35-45) mmHg ABG pO2 (83-108) mmHg ABG HCO3 26 H (21-25) mmol/L ABG Total CO2 28 H (19-24) mmol/L ABG O2 Saturation 97.1 H (94-97) % ABG Hematocrit (34.0-46.0) % ABG Potassium (3.4-4.5) mmol/L ABG Ionized Calcium (4.5-5.3) mg/dL ABG Glucose (75-99) mg/dL ABG Lactic Acid (0.5-1.6) mmol/L Hemoglobin (13.0-17.5) gm/dL Chloride (98-107) mmol/L BUN (9-20) mg/dL Glucose (74-99) mg/dL POC Glucose (mg/dL) 113 H 118 H (75-99) mg/dL Total Bilirubin (0.2-1.3) mg/dL AST (17-59) U/L Total Protein (6.3-8.2) g/dL Albumin (3.5-5.0) g/dL Arterial Blood Potassium (3.4-4.5) mmol/L Arterial Blood Glucose (75-99) mg/dL Crossmatch 08/15/18 08/15/18 08/15/18 Range/Units 18:29 18:30 18:30 WBC 12.4 H (3.8-10.6) k/uL RBC 3.41 L (4.30-5.90) m/uL Hgb 10.0 L (13.0-17.5) gm/dL Hct 31.0 L (39.0-53.0) % Plt Count (150-450) k/uL Neutrophils # 10.2 H (1.3-7.7) k/uL Lymphocytes # 0.9 L (1.0-4.8) k/uL APTT (22.0-30.0) sec ABG pH 7.32 L (7.35-7.45) ABG pCO2 50 H (35-45) mmHg ABG pO2 (83-108) mmHg ABG HCO3 26 H (21-25) mmol/L ABG Total CO2 28 H (19-24) mmol/L ABG O2 Saturation (94-97) % ABG Hematocrit (34.0-46.0) % ABG Potassium (3.4-4.5) mmol/L ABG Ionized Calcium (4.5-5.3) mg/dL ABG Glucose (75-99) mg/dL ABG Lactic Acid (0.5-1.6) mmol/L Hemoglobin (13.0-17.5) gm/dL Chloride (98-107) mmol/L BUN (9-20) mg/dL Glucose (74-99) mg/dL POC Glucose (mg/dL) 133 H (75-99) mg/dL Total Bilirubin (0.2-1.3) mg/dL AST (17-59) U/L Total Protein (6.3-8.2) g/dL Albumin (3.5-5.0) g/dL Arterial Blood Potassium (3.4-4.5) mmol/L Arterial Blood Glucose (75-99) mg/dL Crossmatch 08/15/18 08/15/18 08/15/18 Range/Units 19:12 19:39 20:12 WBC (3.8-10.6) k/uL RBC (4.30-5.90) m/uL Hgb (13.0-17.5) gm/dL Hct (39.0-53.0) % Plt Count (150-450) k/uL Neutrophils # (1.3-7.7) k/uL Lymphocytes # (1.0-4.8) k/uL APTT (22.0-30.0) sec ABG pH (7.35-7.45) ABG pCO2 (35-45) mmHg ABG pO2 (83-108) mmHg ABG HCO3 (21-25) mmol/L ABG Total CO2 (19-24) mmol/L ABG O2 Saturation (94-97) % ABG Hematocrit (34.0-46.0) % ABG Potassium (3.4-4.5) mmol/L ABG Ionized Calcium (4.5-5.3) mg/dL ABG Glucose (75-99) mg/dL ABG Lactic Acid (0.5-1.6) mmol/L Hemoglobin (13.0-17.5) gm/dL Chloride 109 H (98-107) mmol/L BUN (9-20) mg/dL Glucose 123 H (74-99) mg/dL POC Glucose (mg/dL) 146 H 138 H (75-99) mg/dL Total Bilirubin 1.5 H (0.2-1.3) mg/dL AST 143 H (17-59) U/L Total Protein 5.5 L (6.3-8.2) g/dL Albumin 3.4 L (3.5-5.0) g/dL Arterial Blood Potassium (3.4-4.5) mmol/L Arterial Blood Glucose (75-99) mg/dL Crossmatch 08/15/18 08/15/18 08/15/18 Range/Units 21:12 22:00 22:06 WBC 11.7 H (3.8-10.6) k/uL RBC 3.33 L (4.30-5.90) m/uL Hgb 9.8 L (13.0-17.5) gm/dL Hct 29.9 L (39.0-53.0) % Plt Count (150-450) k/uL Neutrophils # 10.0 H (1.3-7.7) k/uL Lymphocytes # 0.6 L (1.0-4.8) k/uL APTT (22.0-30.0) sec ABG pH (7.35-7.45) ABG pCO2 (35-45) mmHg ABG pO2 (83-108) mmHg ABG HCO3 (21-25) mmol/L ABG Total CO2 (19-24) mmol/L ABG O2 Saturation (94-97) % ABG Hematocrit (34.0-46.0) % ABG Potassium (3.4-4.5) mmol/L ABG Ionized Calcium (4.5-5.3) mg/dL ABG Glucose (75-99) mg/dL ABG Lactic Acid (0.5-1.6) mmol/L Hemoglobin (13.0-17.5) gm/dL Chloride (98-107) mmol/L BUN (9-20) mg/dL Glucose (74-99) mg/dL POC Glucose (mg/dL) 133 H 137 H (75-99) mg/dL Total Bilirubin (0.2-1.3) mg/dL AST (17-59) U/L Total Protein (6.3-8.2) g/dL Albumin (3.5-5.0) g/dL Arterial Blood Potassium (3.4-4.5) mmol/L Arterial Blood Glucose (75-99) mg/dL Crossmatch 08/15/18 08/16/18 08/16/18 Range/Units 23:12 00:16 01:16 WBC (3.8-10.6) k/uL RBC (4.30-5.90) m/uL Hgb (13.0-17.5) gm/dL Hct (39.0-53.0) % Plt Count (150-450) k/uL Neutrophils # (1.3-7.7) k/uL Lymphocytes # (1.0-4.8) k/uL APTT (22.0-30.0) sec ABG pH (7.35-7.45) ABG pCO2 (35-45) mmHg ABG pO2 (83-108) mmHg ABG HCO3 (21-25) mmol/L ABG Total CO2 (19-24) mmol/L ABG O2 Saturation (94-97) % ABG Hematocrit (34.0-46.0) % ABG Potassium (3.4-4.5) mmol/L ABG Ionized Calcium (4.5-5.3) mg/dL ABG Glucose (75-99) mg/dL ABG Lactic Acid (0.5-1.6) mmol/L Hemoglobin (13.0-17.5) gm/dL Chloride (98-107) mmol/L BUN (9-20) mg/dL Glucose (74-99) mg/dL POC Glucose (mg/dL) 162 H 144 H 144 H (75-99) mg/dL Total Bilirubin (0.2-1.3) mg/dL AST (17-59) U/L Total Protein (6.3-8.2) g/dL Albumin (3.5-5.0) g/dL Arterial Blood Potassium (3.4-4.5) mmol/L Arterial Blood Glucose (75-99) mg/dL Crossmatch 08/16/18 08/16/18 08/16/18 Range/Units 02:08 03:02 04:11 WBC (3.8-10.6) k/uL RBC (4.30-5.90) m/uL Hgb (13.0-17.5) gm/dL Hct (39.0-53.0) % Plt Count (150-450) k/uL Neutrophils # (1.3-7.7) k/uL Lymphocytes # (1.0-4.8) k/uL APTT (22.0-30.0) sec ABG pH (7.35-7.45) ABG pCO2 (35-45) mmHg ABG pO2 (83-108) mmHg ABG HCO3 (21-25) mmol/L ABG Total CO2 (19-24) mmol/L ABG O2 Saturation (94-97) % ABG Hematocrit (34.0-46.0) % ABG Potassium (3.4-4.5) mmol/L ABG Ionized Calcium (4.5-5.3) mg/dL ABG Glucose (75-99) mg/dL ABG Lactic Acid (0.5-1.6) mmol/L Hemoglobin (13.0-17.5) gm/dL Chloride (98-107) mmol/L BUN (9-20) mg/dL Glucose (74-99) mg/dL POC Glucose (mg/dL) 154 H 153 H 158 H (75-99) mg/dL Total Bilirubin (0.2-1.3) mg/dL AST (17-59) U/L Total Protein (6.3-8.2) g/dL Albumin (3.5-5.0) g/dL Arterial Blood Potassium (3.4-4.5) mmol/L Arterial Blood Glucose (75-99) mg/dL Crossmatch 08/16/18 08/16/18 08/16/18 Range/Units 04:55 04:55 04:55 WBC 12.7 H (3.8-10.6) k/uL RBC 3.39 L (4.30-5.90) m/uL Hgb 10.0 L (13.0-17.5) gm/dL Hct 31.1 L (39.0-53.0) % Plt Count (150-450) k/uL Neutrophils # 11.1 H (1.3-7.7) k/uL Lymphocytes # 0.7 L (1.0-4.8) k/uL APTT 21.6 L (22.0-30.0) sec ABG pH (7.35-7.45) ABG pCO2 (35-45) mmHg ABG pO2 (83-108) mmHg ABG HCO3 (21-25) mmol/L ABG Total CO2 (19-24) mmol/L ABG O2 Saturation (94-97) % ABG Hematocrit (34.0-46.0) % ABG Potassium (3.4-4.5) mmol/L ABG Ionized Calcium (4.5-5.3) mg/dL ABG Glucose (75-99) mg/dL ABG Lactic Acid (0.5-1.6) mmol/L Hemoglobin (13.0-17.5) gm/dL Chloride (98-107) mmol/L BUN 22 H (9-20) mg/dL Glucose 135 H (74-99) mg/dL POC Glucose (mg/dL) (75-99) mg/dL Total Bilirubin (0.2-1.3) mg/dL AST 163 H (17-59) U/L Total Protein 5.6 L (6.3-8.2) g/dL Albumin (3.5-5.0) g/dL Arterial Blood Potassium (3.4-4.5) mmol/L Arterial Blood Glucose (75-99) mg/dL Crossmatch 08/16/18 08/16/18 08/16/18 Range/Units 04:55 06:10 07:00 WBC (3.8-10.6) k/uL RBC (4.30-5.90) m/uL Hgb (13.0-17.5) gm/dL Hct (39.0-53.0) % Plt Count (150-450) k/uL Neutrophils # (1.3-7.7) k/uL Lymphocytes # (1.0-4.8) k/uL APTT (22.0-30.0) sec ABG pH (7.35-7.45) ABG pCO2 (35-45) mmHg ABG pO2 (83-108) mmHg ABG HCO3 (21-25) mmol/L ABG Total CO2 (19-24) mmol/L ABG O2 Saturation (94-97) % ABG Hematocrit (34.0-46.0) % ABG Potassium (3.4-4.5) mmol/L ABG Ionized Calcium (4.5-5.3) mg/dL ABG Glucose (75-99) mg/dL ABG Lactic Acid (0.5-1.6) mmol/L Hemoglobin (13.0-17.5) gm/dL Chloride (98-107) mmol/L BUN (9-20) mg/dL Glucose (74-99) mg/dL POC Glucose (mg/dL) 146 H 130 H 152 H (75-99) mg/dL Total Bilirubin (0.2-1.3) mg/dL AST (17-59) U/L Total Protein (6.3-8.2) g/dL Albumin (3.5-5.0) g/dL Arterial Blood Potassium (3.4-4.5) mmol/L Arterial Blood Glucose (75-99) mg/dL Crossmatch Assessment and Plan (1) Status post mitral valve repair Current Visit: Yes Status: Acute Code(s): Z98.890 - OTHER SPECIFIED POSTPROCEDURAL STATES SNOMED Code(s): 115628056 (2) Atrial fibrillation Current Visit: No Status: Acute Code(s): I48.91 - UNSPECIFIED ATRIAL FIBRILLATION SNOMED Code(s): 75638660 (3) CAD (coronary artery disease) Current Visit: No Status: Acute Code(s): I25.10 - ATHSCL HEART DISEASE OF [place] CORONARY ARTERY W/O ANG PCTRS SNOMED Code(s): 34921772 (4) Former smoker Current Visit: No Status: Acute Code(s): Z87.891 - PERSONAL HISTORY OF NICOTINE DEPENDENCE SNOMED Code(s): 9333663 Plan: The patient is doing quite well postop day #1 and in sinus rhythm. Continue postoperative cardiac thoracic management. We'll continue to follow with attending physician. Dr. Shaw's group will covering for the weekend. Check CBC and CMP in a.m.
[2018-08-16 08:32] LABS: Glucose,Whole Blood 156 mg/dL (75-99)
[2018-08-16] MEDS: ceFAZolin IN SWFI 2 GM/20 ML SYRINGE IVP SCH (08:38)
[2018-08-16] MEDS: PANTOPRAZOLE 40 MG/10 ML VIAL IVP SCH (08:39)
[2018-08-16] MEDS: CITALOPRAM HYDROBROMIDE 10 MG TAB PO SCH (08:39)
[2018-08-16] MEDS: ASPIRIN 325 MG TAB PO SCH (08:39)
[2018-08-16] MEDS: MUPIROCIN 2% OINT 22 GM TUBE NASAL SCH ×2 (08:40→21:24)
[2018-08-16 09:14] LABS: Glucose,Whole Blood 152 mg/dL (75-99)
--- NOTE | 2018-08-16 10:17 | P.PN ---
Subjective Progress Note Date: 08/16/18 Principal diagnosis: Mitral regurgitation. Mitral stenosis. Paroxysmal atrial fibrillation. Coronary artery disease. History of cardioversions, hypertension, hyperlipidemia, obstructive sleep apnea, previous tobacco dependence, mild COPD with preoperative FEV1 68% of predicted, daily EtOH use, GERD, obesity, and family history of premature coronary artery disease with brother diagnosed at 34 and father diagnosed at 42. POD #1 mitral valve replacement with a #31/33 On-X mechanical mitral valve. Coronary bypass grafting 2 with a right internal mammary artery to the right coronary artery, reverse saphenous vein graft off the aorta to the second obtuse marginal artery. Endovascular vein harvest of the left greater saphenous vein. Clip ligation of the left atrial appendage with a #40 mm AtriClip. Complete left-sided maze procedure using radiofrequency and cryoablation. Intraoperative transesophageal echocardiogram. Postoperative acute blood loss anemia, expected post surgical condition secondary to hemodilution and cardiopulmonary bypass pump. The patient is currently sitting up in a recliner in no acute distress. Was successfully extubated at 18:54 yesterday. Does complain of some postoperative pain, denies shortness of breath, complains of sore throat. Currently hemodynamically stable on no inotropes or pressors. Underlying rhythm checked, patient is sinus rhythm with first-degree AV block, pacemaker generator turned down to a VVI backup rate of 50 bpm. No new complaints. Objective - Vital Signs Vital signs: Vital Signs Temp 36.7 F L 08/16/18 08:00 Pulse 64 08/16/18 09:00 Resp 12 08/16/18 09:00 BP 141/72 08/15/18 05:57 Pulse Ox 95 08/16/18 09:00 Intake & Output 08/15/18 08/16/18 08/16/18 18:59 06:59 18:59 Intake Total 436.5 1649.023 373.786 Output Total 2960 1115 215 Balance -2523.5 534.023 158.786 Weight 123 kg Intake: IV 186.5 887.0 243.5 ACETAMINOPHEN IV (For NPO 100 ) 1,000 mg In Empty Bag 1 bag @ 400 mls/hr IVPB Q6HR [facility] Rx#:[id number] CO/CI 120 30 Lactated Ringers 1,000 ml 150 550 100 @ 50 mls/hr IV .Q20H [facility] Rx#:[id number] Magnesium Sulfate-D5w Pmx 100 1 gm In Dextrose/Water 1 100ml.bag @ 100 mls/hr IVPB Q1H [facility] Rx#: [id number] Nitroglycerin-D5w Pmx 50 4.5 18.0 1.5 mg In Dextrose/Water 1 250ml.bag @ 5 MCG/MIN 1.5 mls/hr IV .Q24H [facility] Rx#: [id number] art,cvp,pa line 99 12 Intake, IV Titration 42.023 10.286 Amount Heparin Sodium,Porcine 5, 20 000 unit In Sodium Chloride 0.9% 500 ml 500 ml @ Per Protocol IV ONCE ONE Rx#:[id number] Insulin Regular 100 unit 22.023 10.286 In Sodium Chloride 0.9% 100 ml @ Per Protocol IV .Q0M [facility] Rx#:[id number] Oral 240 120 Blood Product 480 Lipid 250 Albumin Human 5% 250 ml 250 In Empty Bag 1 bag @ 250 mls/hr IVPB Q1HR PRN Rx#: [id number] Output: Chest Tube Drainage 235 370 100 Chest Tube Right Pleural/ 235 370 100 Mediastinal Urine 925 545 115 Emesis 200 Estimated Blood Loss 1800 Other: Voiding Method Indwelling Catheter Indwelling Catheter # Bowel Movements 65 ABP, PAP, CO, CI - Last Documented Arterial Blood Pressure 115/52 Pulmonary Artery Pressure 37/19 Cardiac Output 9.9 Cardiac Index 4.1 - Constitutional General appearance: Present: cooperative, no acute distress, obese - Respiratory Details: Lungs sounds diminished bilaterally. Respirations even, nonlabored. Currently on 3 L nasal cannula with oxygen saturation 95%. Able to achieve 2779-2132 mL on his incentive spirometry. Strong cough. Mediastinal/right pleural chest tube to continuous wall suction, 140 mL serosanguineous drainage overnight, 750 mL since surgery, no air leak present. - Cardiovascular Details: S1, S2 present. Positive valvular click. Regular rate and rhythm, sinus rhythm with first-degree AV block on telemetry. A/V epicardial pacemaker wires present, connected to generator, VVI mode with backup rate 50 beats per minute. Sternum stable. Palpable peripheral pulses bilaterally. No edema present. No calf pain or tenderness noted. Right internal jugular Lindstrom/Cordis, left radial arterial line present. Last CO/CI 7.3/3.1 on no inotropes. Heart hugger in place with patient demonstrating appropriate use. Antiembolism stockings, SCDs present. - Gastrointestinal Gastrointestinal Comment(s): Abdomen soft, nontender, nondistended. Hypoactive bowel sounds present 4 quadrants. Tolerating clear liquids. Negative flatus. - Genitourinary Genitourinary Comment(s): Santiago present draining clear, yellow urine. Output 30-50 mL per hour overnight. - Integumentary Integumentary Comment(s): Skin is warm and dry with evidence of good perfusion. Anterior chest incision well approximated and covered with dry intact dressing. Left lower extremity EVH site well approximated. - Neurologic Neurologic: Present: CNII-XII intact - Musculoskeletal Musculoskeletal: Present: strength equal bilaterally - Psychiatric Psychiatric: Present: A&O x's 3, appropriate affect, intact judgment & insight - Allied health notes Allied health notes reviewed: nursing - Labs CBC & Chem 7: 08/16/18 04:55 08/16/18 04:55 Labs: Abnormal Lab Results - Last 24 Hours (Table) 08/12/18 08/15/18 08/15/18 Range/Units 11:24 09:01 10:18 WBC (3.8-10.6) k/uL RBC (4.30-5.90) m/uL Hgb (13.0-17.5) gm/dL Hct (39.0-53.0) % Plt Count (150-450) k/uL Neutrophils # (1.3-7.7) k/uL Lymphocytes # (1.0-4.8) k/uL APTT (22.0-30.0) sec ABG pH (7.35-7.45) ABG pCO2 48 H (35-45) mmHg ABG pO2 309 H 190 H (83-108) mmHg ABG HCO3 27 H 28 H (21-25) mmol/L ABG Total CO2 29 H 29 H (19-24) mmol/L ABG O2 Saturation 99.7 H 99.3 H (94-97) % ABG Hematocrit (34.0-46.0) % ABG Potassium 5.4 H (3.4-4.5) mmol/L ABG Ionized Calcium (4.5-5.3) mg/dL ABG Glucose 106 H 120 H (75-99) mg/dL ABG Lactic Acid (0.5-1.6) mmol/L Hemoglobin 12.0 L 11.8 L (13.0-17.5) gm/dL Chloride (98-107) mmol/L BUN (9-20) mg/dL Glucose (74-99) mg/dL POC Glucose (mg/dL) (75-99) mg/dL Total Bilirubin (0.2-1.3) mg/dL AST (17-59) U/L Total Protein (6.3-8.2) g/dL Albumin (3.5-5.0) g/dL Arterial Blood Potassium 5.4 H (3.4-4.5) mmol/L Arterial Blood Glucose 106 H 120 H (75-99) mg/dL Crossmatch See Detail 08/15/18 08/15/18 08/15/18 Range/Units 11:08 12:04 12:29 WBC (3.8-10.6) k/uL RBC (4.30-5.90) m/uL Hgb (13.0-17.5) gm/dL Hct (39.0-53.0) % Plt Count (150-450) k/uL Neutrophils # (1.3-7.7) k/uL Lymphocytes # (1.0-4.8) k/uL APTT (22.0-30.0) sec ABG pH 7.27 L 7.32 L (7.35-7.45) ABG pCO2 60 H 51 H (35-45) mmHg ABG pO2 217 H 326 H 313 H (83-108) mmHg ABG HCO3 26 H 27 H 26 H (21-25) mmol/L ABG Total CO2 27 H 29 H 28 H (19-24) mmol/L ABG O2 Saturation 99.6 H 99.6 H 99.6 H (94-97) % ABG Hematocrit 28 L 29 L 29 L (34.0-46.0) % ABG Potassium 4.9 H 5.0 H 5.2 H (3.4-4.5) mmol/L ABG Ionized Calcium 4.4 L (4.5-5.3) mg/dL ABG Glucose 180 H 162 H 163 H (75-99) mg/dL ABG Lactic Acid 2.0 H 1.9 H (0.5-1.6) mmol/L Hemoglobin 9.1 L 9.5 L 9.3 L (13.0-17.5) gm/dL Chloride (98-107) mmol/L BUN (9-20) mg/dL Glucose (74-99) mg/dL POC Glucose (mg/dL) (75-99) mg/dL Total Bilirubin (0.2-1.3) mg/dL AST (17-59) U/L Total Protein (6.3-8.2) g/dL Albumin (3.5-5.0) g/dL Arterial Blood Potassium 4.9 H 5.0 H 5.2 H (3.4-4.5) mmol/L Arterial Blood Glucose 180 H 162 H 163 H (75-99) mg/dL Crossmatch 08/15/18 08/15/18 08/15/18 Range/Units 13:02 13:31 14:27 WBC (3.8-10.6) k/uL RBC (4.30-5.90) m/uL Hgb (13.0-17.5) gm/dL Hct (39.0-53.0) % Plt Count (150-450) k/uL Neutrophils # (1.3-7.7) k/uL Lymphocytes # (1.0-4.8) k/uL APTT (22.0-30.0) sec ABG pH 7.28 L (7.35-7.45) ABG pCO2 61 H (35-45) mmHg ABG pO2 351 H 309 H 72 L (83-108) mmHg ABG HCO3 26 H 28 H (21-25) mmol/L ABG Total CO2 27 H 27 H 30 H (19-24) mmol/L ABG O2 Saturation 99.7 H 99.6 H 92.7 L (94-97) % ABG Hematocrit 28 L 28 L 30 L (34.0-46.0) % ABG Potassium 4.9 H 4.9 H (3.4-4.5) mmol/L ABG Ionized Calcium (4.5-5.3) mg/dL ABG Glucose 151 H 137 H 108 H (75-99) mg/dL ABG Lactic Acid 1.8 H 2.3 H* (0.5-1.6) mmol/L Hemoglobin 9.1 L 9.1 L 9.8 L (13.0-17.5) gm/dL Chloride (98-107) mmol/L BUN (9-20) mg/dL Glucose (74-99) mg/dL POC Glucose (mg/dL) (75-99) mg/dL Total Bilirubin (0.2-1.3) mg/dL AST (17-59) U/L Total Protein (6.3-8.2) g/dL Albumin (3.5-5.0) g/dL Arterial Blood Potassium 4.9 H 4.9 H (3.4-4.5) mmol/L Arterial Blood Glucose 151 H 137 H 108 H (75-99) mg/dL Crossmatch 08/15/18 08/15/18 08/15/18 Range/Units 14:48 15:55 16:06 WBC (3.8-10.6) k/uL RBC 3.47 L (4.30-5.90) m/uL Hgb 10.2 L D (13.0-17.5) gm/dL Hct 31.1 L (39.0-53.0) % Plt Count 138 L (150-450) k/uL Neutrophils # (1.3-7.7) k/uL Lymphocytes # (1.0-4.8) k/uL APTT (22.0-30.0) sec ABG pH 7.27 L (7.35-7.45) ABG pCO2 61 H (35-45) mmHg ABG pO2 139 H (83-108) mmHg ABG HCO3 27 H 28 H (21-25) mmol/L ABG Total CO2 28 H 29 H (19-24) mmol/L ABG O2 Saturation 97.1 H 98.7 H (94-97) % ABG Hematocrit 31 L (34.0-46.0) % ABG Potassium (3.4-4.5) mmol/L ABG Ionized Calcium (4.5-5.3) mg/dL ABG Glucose (75-99) mg/dL ABG Lactic Acid (0.5-1.6) mmol/L Hemoglobin 10.0 L (13.0-17.5) gm/dL Chloride (98-107) mmol/L BUN (9-20) mg/dL Glucose (74-99) mg/dL POC Glucose (mg/dL) (75-99) mg/dL Total Bilirubin (0.2-1.3) mg/dL AST (17-59) U/L Total Protein (6.3-8.2) g/dL Albumin (3.5-5.0) g/dL Arterial Blood Potassium (3.4-4.5) mmol/L Arterial Blood Glucose (75-99) mg/dL Crossmatch 08/15/18 08/15/18 08/15/18 Range/Units 16:37 17:31 17:34 WBC (3.8-10.6) k/uL RBC (4.30-5.90) m/uL Hgb (13.0-17.5) gm/dL Hct (39.0-53.0) % Plt Count (150-450) k/uL Neutrophils # (1.3-7.7) k/uL Lymphocytes # (1.0-4.8) k/uL APTT (22.0-30.0) sec ABG pH 7.34 L (7.35-7.45) ABG pCO2 48 H (35-45) mmHg ABG pO2 (83-108) mmHg ABG HCO3 26 H (21-25) mmol/L ABG Total CO2 28 H (19-24) mmol/L ABG O2 Saturation 97.1 H (94-97) % ABG Hematocrit (34.0-46.0) % ABG Potassium (3.4-4.5) mmol/L ABG Ionized Calcium (4.5-5.3) mg/dL ABG Glucose (75-99) mg/dL ABG Lactic Acid (0.5-1.6) mmol/L Hemoglobin (13.0-17.5) gm/dL Chloride (98-107) mmol/L BUN (9-20) mg/dL Glucose (74-99) mg/dL POC Glucose (mg/dL) 113 H 118 H (75-99) mg/dL Total Bilirubin (0.2-1.3) mg/dL AST (17-59) U/L Total Protein (6.3-8.2) g/dL Albumin (3.5-5.0) g/dL Arterial Blood Potassium (3.4-4.5) mmol/L Arterial Blood Glucose (75-99) mg/dL Crossmatch 08/15/18 08/15/18 08/15/18 Range/Units 18:29 18:30 18:30 WBC 12.4 H (3.8-10.6) k/uL RBC 3.41 L (4.30-5.90) m/uL Hgb 10.0 L (13.0-17.5) gm/dL Hct 31.0 L (39.0-53.0) % Plt Count (150-450) k/uL Neutrophils # 10.2 H (1.3-7.7) k/uL Lymphocytes # 0.9 L (1.0-4.8) k/uL APTT (22.0-30.0) sec ABG pH 7.32 L (7.35-7.45) ABG pCO2 50 H (35-45) mmHg ABG pO2 (83-108) mmHg ABG HCO3 26 H (21-25) mmol/L ABG Total CO2 28 H (19-24) mmol/L ABG O2 Saturation (94-97) % ABG Hematocrit (34.0-46.0) % ABG Potassium (3.4-4.5) mmol/L ABG Ionized Calcium (4.5-5.3) mg/dL ABG Glucose (75-99) mg/dL ABG Lactic Acid (0.5-1.6) mmol/L Hemoglobin (13.0-17.5) gm/dL Chloride (98-107) mmol/L BUN (9-20) mg/dL Glucose (74-99) mg/dL POC Glucose (mg/dL) 133 H (75-99) mg/dL Total Bilirubin (0.2-1.3) mg/dL AST (17-59) U/L Total Protein (6.3-8.2) g/dL Albumin (3.5-5.0) g/dL Arterial Blood Potassium (3.4-4.5) mmol/L Arterial Blood Glucose (75-99) mg/dL Crossmatch 08/15/18 08/15/18 08/15/18 Range/Units 19:12 19:39 20:12 WBC (3.8-10.6) k/uL RBC (4.30-5.90) m/uL Hgb (13.0-17.5) gm/dL Hct (39.0-53.0) % Plt Count (150-450) k/uL Neutrophils # (1.3-7.7) k/uL Lymphocytes # (1.0-4.8) k/uL APTT (22.0-30.0) sec ABG pH (7.35-7.45) ABG pCO2 (35-45) mmHg ABG pO2 (83-108) mmHg ABG HCO3 (21-25) mmol/L ABG Total CO2 (19-24) mmol/L ABG O2 Saturation (94-97) % ABG Hematocrit (34.0-46.0) % ABG Potassium (3.4-4.5) mmol/L ABG Ionized Calcium (4.5-5.3) mg/dL ABG Glucose (75-99) mg/dL ABG Lactic Acid (0.5-1.6) mmol/L Hemoglobin (13.0-17.5) gm/dL Chloride 109 H (98-107) mmol/L BUN (9-20) mg/dL Glucose 123 H (74-99) mg/dL POC Glucose (mg/dL) 146 H 138 H (75-99) mg/dL Total Bilirubin 1.5 H (0.2-1.3) mg/dL AST 143 H (17-59) U/L Total Protein 5.5 L (6.3-8.2) g/dL Albumin 3.4 L (3.5-5.0) g/dL Arterial Blood Potassium (3.4-4.5) mmol/L Arterial Blood Glucose (75-99) mg/dL Crossmatch 08/15/18 08/15/18 08/15/18 Range/Units 21:12 22:00 22:06 WBC 11.7 H (3.8-10.6) k/uL RBC 3.33 L (4.30-5.90) m/uL Hgb 9.8 L (13.0-17.5) gm/dL Hct 29.9 L (39.0-53.0) % Plt Count (150-450) k/uL Neutrophils # 10.0 H (1.3-7.7) k/uL Lymphocytes # 0.6 L (1.0-4.8) k/uL APTT (22.0-30.0) sec ABG pH (7.35-7.45) ABG pCO2 (35-45) mmHg ABG pO2 (83-108) mmHg ABG HCO3 (21-25) mmol/L ABG Total CO2 (19-24) mmol/L ABG O2 Saturation (94-97) % ABG Hematocrit (34.0-46.0) % ABG Potassium (3.4-4.5) mmol/L ABG Ionized Calcium (4.5-5.3) mg/dL ABG Glucose (75-99) mg/dL ABG Lactic Acid (0.5-1.6) mmol/L Hemoglobin (13.0-17.5) gm/dL Chloride (98-107) mmol/L BUN (9-20) mg/dL Glucose (74-99) mg/dL POC Glucose (mg/dL) 133 H 137 H (75-99) mg/dL Total Bilirubin (0.2-1.3) mg/dL AST (17-59) U/L Total Protein (6.3-8.2) g/dL Albumin (3.5-5.0) g/dL Arterial Blood Potassium (3.4-4.5) mmol/L Arterial Blood Glucose (75-99) mg/dL Crossmatch 08/15/18 08/16/18 08/16/18 Range/Units 23:12 00:16 01:16 WBC (3.8-10.6) k/uL RBC (4.30-5.90) m/uL Hgb (13.0-17.5) gm/dL Hct (39.0-53.0) % Plt Count (150-450) k/uL Neutrophils # (1.3-7.7) k/uL Lymphocytes # (1.0-4.8) k/uL APTT (22.0-30.0) sec ABG pH (7.35-7.45) ABG pCO2 (35-45) mmHg ABG pO2 (83-108) mmHg ABG HCO3 (21-25) mmol/L ABG Total CO2 (19-24) mmol/L ABG O2 Saturation (94-97) % ABG Hematocrit (34.0-46.0) % ABG Potassium (3.4-4.5) mmol/L ABG Ionized Calcium (4.5-5.3) mg/dL ABG Glucose (75-99) mg/dL ABG Lactic Acid (0.5-1.6) mmol/L Hemoglobin (13.0-17.5) gm/dL Chloride (98-107) mmol/L BUN (9-20) mg/dL Glucose (74-99) mg/dL POC Glucose (mg/dL) 162 H 144 H 144 H (75-99) mg/dL Total Bilirubin (0.2-1.3) mg/dL AST (17-59) U/L Total Protein (6.3-8.2) g/dL Albumin (3.5-5.0) g/dL Arterial Blood Potassium (3.4-4.5) mmol/L Arterial Blood Glucose (75-99) mg/dL Crossmatch 08/16/18 08/16/18 08/16/18 Range/Units 02:08 03:02 04:11 WBC (3.8-10.6) k/uL RBC (4.30-5.90) m/uL Hgb (13.0-17.5) gm/dL Hct (39.0-53.0) % Plt Count (150-450) k/uL Neutrophils # (1.3-7.7) k/uL Lymphocytes # (1.0-4.8) k/uL APTT (22.0-30.0) sec ABG pH (7.35-7.45) ABG pCO2 (35-45) mmHg ABG pO2 (83-108) mmHg ABG HCO3 (21-25) mmol/L ABG Total CO2 (19-24) mmol/L ABG O2 Saturation (94-97) % ABG Hematocrit (34.0-46.0) % ABG Potassium (3.4-4.5) mmol/L ABG Ionized Calcium (4.5-5.3) mg/dL ABG Glucose (75-99) mg/dL ABG Lactic Acid (0.5-1.6) mmol/L Hemoglobin (13.0-17.5) gm/dL Chloride (98-107) mmol/L BUN (9-20) mg/dL Glucose (74-99) mg/dL POC Glucose (mg/dL) 154 H 153 H 158 H (75-99) mg/dL Total Bilirubin (0.2-1.3) mg/dL AST (17-59) U/L Total Protein (6.3-8.2) g/dL Albumin (3.5-5.0) g/dL Arterial Blood Potassium (3.4-4.5) mmol/L Arterial Blood Glucose (75-99) mg/dL Crossmatch 08/16/18 08/16/18 08/16/18 Range/Units 04:55 04:55 04:55 WBC 12.7 H (3.8-10.6) k/uL RBC 3.39 L (4.30-5.90) m/uL Hgb 10.0 L (13.0-17.5) gm/dL Hct 31.1 L (39.0-53.0) % Plt Count (150-450) k/uL Neutrophils # 11.1 H (1.3-7.7) k/uL Lymphocytes # 0.7 L (1.0-4.8) k/uL APTT 21.6 L (22.0-30.0) sec ABG pH (7.35-7.45) ABG pCO2 (35-45) mmHg ABG pO2 (83-108) mmHg ABG HCO3 (21-25) mmol/L ABG Total CO2 (19-24) mmol/L ABG O2 Saturation (94-97) % ABG Hematocrit (34.0-46.0) % ABG Potassium (3.4-4.5) mmol/L ABG Ionized Calcium (4.5-5.3) mg/dL ABG Glucose (75-99) mg/dL ABG Lactic Acid (0.5-1.6) mmol/L Hemoglobin (13.0-17.5) gm/dL Chloride (98-107) mmol/L BUN 22 H (9-20) mg/dL Glucose 135 H (74-99) mg/dL POC Glucose (mg/dL) (75-99) mg/dL Total Bilirubin (0.2-1.3) mg/dL AST 163 H (17-59) U/L Total Protein 5.6 L (6.3-8.2) g/dL Albumin (3.5-5.0) g/dL Arterial Blood Potassium (3.4-4.5) mmol/L Arterial Blood Glucose (75-99) mg/dL Crossmatch 08/16/18 08/16/18 08/16/18 Range/Units 04:55 06:10 07:00 WBC (3.8-10.6) k/uL RBC (4.30-5.90) m/uL Hgb (13.0-17.5) gm/dL Hct (39.0-53.0) % Plt Count (150-450) k/uL Neutrophils # (1.3-7.7) k/uL Lymphocytes # (1.0-4.8) k/uL APTT (22.0-30.0) sec ABG pH (7.35-7.45) ABG pCO2 (35-45) mmHg ABG pO2 (83-108) mmHg ABG HCO3 (21-25) mmol/L ABG Total CO2 (19-24) mmol/L ABG O2 Saturation (94-97) % ABG Hematocrit (34.0-46.0) % ABG Potassium (3.4-4.5) mmol/L ABG Ionized Calcium (4.5-5.3) mg/dL ABG Glucose (75-99) mg/dL ABG Lactic Acid (0.5-1.6) mmol/L Hemoglobin (13.0-17.5) gm/dL Chloride (98-107) mmol/L BUN (9-20) mg/dL Glucose (74-99) mg/dL POC Glucose (mg/dL) 146 H 130 H 152 H (75-99) mg/dL Total Bilirubin (0.2-1.3) mg/dL AST (17-59) U/L Total Protein (6.3-8.2) g/dL Albumin (3.5-5.0) g/dL Arterial Blood Potassium (3.4-4.5) mmol/L Arterial Blood Glucose (75-99) mg/dL Crossmatch 08/16/18 08/16/18 Range/Units 08:14 09:03 WBC (3.8-10.6) k/uL RBC (4.30-5.90) m/uL Hgb (13.0-17.5) gm/dL Hct (39.0-53.0) % Plt Count (150-450) k/uL Neutrophils # (1.3-7.7) k/uL Lymphocytes # (1.0-4.8) k/uL APTT (22.0-30.0) sec ABG pH (7.35-7.45) ABG pCO2 (35-45) mmHg ABG pO2 (83-108) mmHg ABG HCO3 (21-25) mmol/L ABG Total CO2 (19-24) mmol/L ABG O2 Saturation (94-97) % ABG Hematocrit (34.0-46.0) % ABG Potassium (3.4-4.5) mmol/L ABG Ionized Calcium (4.5-5.3) mg/dL ABG Glucose (75-99) mg/dL ABG Lactic Acid (0.5-1.6) mmol/L Hemoglobin (13.0-17.5) gm/dL Chloride (98-107) mmol/L BUN (9-20) mg/dL Glucose (74-99) mg/dL POC Glucose (mg/dL) 156 H 152 H (75-99) mg/dL Total Bilirubin (0.2-1.3) mg/dL AST (17-59) U/L Total Protein (6.3-8.2) g/dL Albumin (3.5-5.0) g/dL Arterial Blood Potassium (3.4-4.5) mmol/L Arterial Blood Glucose (75-99) mg/dL Crossmatch - Imaging and Cardiology Chest x-ray: image reviewed Assessment and Plan (1) Mitral regurgitation Current Visit: Yes Status: Chronic Code(s): I34.0 - NONRHEUMATIC MITRAL ( VALVE) INSUFFICIENCY SNOMED Code(s): 92863551 (2) Mitral stenosis Current Visit: Yes Status: Chronic Code(s): I05.0 - RHEUMATIC MITRAL STENOSIS SNOMED Code(s): 39710252 (3) Paroxysmal atrial fibrillation Current Visit: No Status: Resolved Code(s): I48.0 - PAROXYSMAL ATRIAL FIBRILLATION SNOMED Code(s): 786659405 (4) Sleep apnea Current Visit: Yes Status: Chronic Code(s): G47.30 - SLEEP APNEA, UNSPECIFIED SNOMED Code(s): 94044521 (5) COPD (chronic obstructive pulmonary disease) Current Visit: Yes Status: Chronic Code(s): J44.9 - CHRONIC OBSTRUCTIVE PULMONARY DISEASE, UNSPECIFIED SNOMED Code(s): 66466070 (6) Status post mitral valve repair Current Visit: Yes Status: Acute Code(s): Z98.890 - OTHER SPECIFIED POSTPROCEDURAL STATES SNOMED Code(s): 297779577 (7) CAD (coronary artery disease) Current Visit: Yes Status: Chronic Code(s): I25.10 - ATHSCL HEART DISEASE OF [place] CORONARY ARTERY W/O ANG PCTRS SNOMED Code(s): 30246832 (8) Former smoker Current Visit: No Status: Resolved Code(s): Z87.891 - PERSONAL HISTORY OF NICOTINE DEPENDENCE SNOMED Code(s): 7349885 (9) Hypertension Current Visit: Yes Status: Chronic Code(s): I10 - ESSENTIAL (PRIMARY) HYPERTENSION SNOMED Code(s): 08799944 (10) Alcohol abuse Current Visit: Yes Status: Chronic Code(s): F10.10 - ALCOHOL ABUSE, UNCOMPLICATED SNOMED Code(s): 87514261 (11) GERD (gastroesophageal reflux disease) Current Visit: Yes Status: Chronic Code(s): K21.9 - GASTRO-ESOPHAGEAL REFLUX DISEASE WITHOUT ESOPHAGITIS SNOMED Code(s): 851704339 (12) Obesity (BMI 30-39.9) Current Visit: Yes Status: Chronic Code(s): E66.9 - OBESITY, UNSPECIFIED SNOMED Code(s): 967191449 (13) Family history of premature CAD Current Visit: Yes Status: Chronic Code(s): Z82.49 - FAMILY HX OF I[place]HE[place] HEART DIS AND OTH DIS OF THE CIRC SYS SNOMED Code(s): 574678100 Plan: 1. Continue aspirin, statin, Plavix. Will add back in beta laura therapy as tolerated. Discontinue IV nitro. 2. Will start Coumadin therapy after all lines and tubes have been discontinued. 3. Wean O2 as tolerated. 4. Increase activity, ambulate as tolerated. PT/OT/cardiac rehab following. 5. Discontinue Lindstrom. Cannot Cordis discontinues CVP monitoring. 6. Will monitor daily labs and x-rays. Electrolyte replacement per protocol. 7. Insulin per primary care service. 8. Pain control with current medication regimen. Toradol added. 9. GI prophylaxis with Protonix. DVT prophylaxis with subcu heparin, SCDs. 10. Bronchodilators per pulmonology. 11. More recommendations to follow. Time with Patient: Greater than 30
[2018-08-16 10:33] LABS: Glucose,Whole Blood 157 mg/dL (75-99)
--- NOTE | 2018-08-16 11:30 | XR ---
EXAMINATION TYPE: XR chest 1V portable DATE OF EXAM: 08/16/2018 COMPARISON: 08/15/2018 INDICATION: Postoperative cardiac surgery TECHNIQUE: Single frontal view of the chest is obtained. FINDINGS: The heart size is enlarged. The pulmonary vasculature is prominent. Mild infiltrate is at the left base. Mild diffuse infiltrate may be scattered within the right lung. Correlate for atelectasis. Pneumonia could be considered. Wesson-Noman catheter is present on the right with the tip in the main pulmonary artery region. Mediasti nal tube is in the midline. Right-sided chest tube is present. No pneumothorax is evident. IMPRESSION: 1. Lines and catheters discussed above. 2. Stable scattered infiltrates present. Atelectasis or developing pneumonia could be considered. 3. Nasogastric tube and endotracheal tube is been removed on prior exam.
[2018-08-16 11:31] LABS: Glucose,Whole Blood 134 mg/dL (75-99)
[2018-08-16] MEDS: INSULIN REGULAR 100 UNIT in SODIUM CHLORIDE 0.9% 100 ML IV SCH (12:19)
[2018-08-16 12:28] LABS: Glucose,Whole Blood 127 mg/dL (75-99)
[2018-08-16 13:30] LABS: Glucose,Whole Blood 125 mg/dL (75-99)
[2018-08-16 14:25] LABS: Glucose,Whole Blood 130 mg/dL (75-99)
[2018-08-16] MEDS: fentaNYL (PF) 50 MCG/ML 2 ML AMP IVP PRN (14:45)
[2018-08-16] MEDS ORDERED: METOPROLOL TARTRATE 12.5 MG TAB PO SCH (15:16)
[2018-08-16] MEDS ORDERED: HYDROcodone/APAP 5-325MG 1 EACH TAB PO PRN (15:16)
[2018-08-16] MEDS ORDERED: BISACODYL 10 MG SUPP RECTAL PRN (15:17)
[2018-08-16] MEDS ORDERED: MAGNESIUM HYDROXIDE 2,400 MG/10 ML CUP PO PRN (15:17)
[2018-08-16 16:23] LABS: Glucose,Whole Blood 115 mg/dL (75-99)
[2018-08-16] MEDS: LACTATED RINGERS 1,000 ML IV SCH (16:25)
[2018-08-16] MEDS: CLEVIDIPINE BUTYRATE 25 MG in EMPTY BAG 1 BAG IV SCH (16:25)
--- NOTE | 2018-08-16 16:31 | P.PN ---
Subjective Progress Note Date: 08/16/18 Principal diagnosis: Mitral valve replacement, a chemical valve, 2 vessel bypass surgery and clipping of the atrial appendage, This is a 53-year-old male patient who is being seen in the intensive care unit following his mitral valve replacement surgery. The patient underwent mitral valve replacement, tissue valve, in addition to modified Wolf-Maze procedure, clipping of the appendage and 2 vessel bypass including a BINTA to RCA and SVG to OM1, and the patient is currently intubated on a mechanical ventilator in the intensive care unit. Chest x-ray shows increased vascular congestion. Orotracheal tube is in a good location. The patient has a right IJ [place]Noman catheter in place. The patient also has a mediastinal and the left pleural chest tube. The blood gases showed a pH of 7.26 with a pCO2 of 60 and pO2 139. Based on this, I put the patient on avoidance cycle mode assist control at a rate of 20, tidal volume of 550, FiO2 is down to 60% and a PEEP of 20. Follow- up blood gases are still pending for now. Hemodynamically the patient is on no pressors. The patient's mean arterial pressures around 60 to and the patient be given IV albumin. Maintenance fluid is normal saline today to 50 mL an hour. Cardiac index is at 2.6. Pulmonary artery pressure nonelevated. Upper from the chest tube both mediastinal and pleural is a total of 130 mL since his arrival from the operating room. He is producing adequate amount of urine output. He is currently off sedation. He was given a dose of fentanyl 50 g for increased chest wall pain. His cardiac rhythm is paced at the rate of 85. Underlying cardiac rhythm is a block third-degree. On 08/16/2018 patient seen in follow-up in the intensive care unit, patient has been extubated, currently on 2 L per nasal cannula his pulse ox is 96%, afebrile , hemodynamically stable. Currently in sinus rhythm, echo with backup rate. Patient is sitting up in the chair, in no acute distress, lung sounds are clear diminished at the bases, he is working on his incentive spirometer, his ISS effort is 1500 today. PA pressures 39/19, cardiac output and index are 9.9 and 4.1 respectively. Right and mediastinal chest tube output has been 605 ML in the last 24 hours. Santiago catheter is in place, patient is nonoliguric. Her and IV infusions include LR at a rate of 50 ML per hour, and insulin is at 6 units per minute. Chest x-ray has been reviewed and showed stable scattered infiltrates, likely atelectasis. Her pain is reasonably controlled. Today's blood work showed WBC of 12.7, hemoglobin of 10.0, sodium 140 potassium is 4.9, chloride is 107, BUN is 22, creatinine 0.7. Objective - Vital Signs Vital signs: Vital Signs Temp 98.9 F 08/16/18 12:00 Pulse 66 08/16/18 15:56 Resp 18 08/16/18 15:00 BP 108/66 08/16/18 15:00 Pulse Ox 96 08/16/18 15:28 Intake & Output 08/15/18 08/16/18 08/16/18 18:59 06:59 18:59 Intake Total 436.5 1649.023 938.377 Output Total 2960 1115 1365 Balance -2523.5 534.023 -426.623 Weight 123 kg 123 kg Intake: IV 186.5 887.0 720.5 ACETAMINOPHEN IV (For NPO 100 100 ) 1,000 mg In Empty Bag 1 bag @ 400 mls/hr IVPB Q6HR SAMANTHA Rx#:[id number] CO/CI 120 30 Lactated Ringers 1,000 ml 150 550 420 @ 50 mls/hr IV .Q20H SAMANTHA Rx#:[id number] Magnesium Sulfate-D5w Pmx 100 1 gm In Dextrose/Water 1 100ml.bag @ 100 mls/hr IVPB Q1H SAMANTHA Rx#: [id number] Nitroglycerin-D5w Pmx 50 4.5 18.0 1.5 mg In Dextrose/Water 1 250ml.bag @ 5 MCG/MIN 1.5 mls/hr IV .Q24H SAMANTHA Rx#: [id number] art,cvp,pa line 99 69 Intake, IV Titration 42.023 47.877 Amount Heparin Sodium,Porcine 5, 20 000 unit In Sodium Chloride 0.9% 500 ml 500 ml @ Per Protocol IV ONCE ONE Rx#:[id number] Insulin Regular 100 unit 22.023 27.877 In Sodium Chloride 0.9% 100 ml @ Per Protocol IV .Q0M SAMANTHA Rx#:[id number] ceFAZolin 2,000 mg In 20 Sodium Chloride 0.9% 30 ml @ Per Protocol IVPB ONCE ONE Rx#:[id number] Oral 240 170 Blood Product 480 Lipid 250 Albumin Human 5% 250 ml 250 In Empty Bag 1 bag @ 250 mls/hr IVPB Q1HR PRN Rx#: [id number] Output: Chest Tube Drainage 235 370 340 Chest Tube Right Pleural/ 235 370 340 Mediastinal Urine 027 714 2022 Emesis 200 Estimated Blood Loss 1800 Other: Voiding Method Indwelling Catheter Indwelling Catheter Indwelling Catheter # Bowel Movements 65 ABP, PAP, CO, CI - Last Documented Arterial Blood Pressure 104/58 Pulmonary Artery Pressure 40/15 Cardiac Output 9.9 Cardiac Index 4.1 - Exam Gen. appearance, comfortable likely distress, arousable, gabapentin for pain. During up in the chair, in no acute distress Head exam was generally normal. There was no scleral icterus or corneal arcus. Mucous membranes were moist. Neck was supple and without jugular venous distension, thyromegaly, or carotid bruits. Carotids were easily palpable bilaterally. There was no adenopathy. The patient has a right IJ [place]-Noman catheter in place. Lungs sounds are diminished bilaterally. Breath sounds are equal and symmetrical. No wheezes. No rhonchi. Sternum stable clean and intact. The patient has a chest tube in the right pleura. Cardiac exam revealed the PMI to be normally situated and sized. The rhythm was regular and no extrasystoles were noted during several minutes of auscultation. The first and second heart sounds were normal and physiologic splitting of the second heart sound was noted. There were no murmurs, rubs, clicks, or gallops. The patient rhythm is paced at the rate of 85. Abdominal exam revealed normal bowel sounds. The abdomen was soft, non-tender, and without masses, organomegaly, or appreciable enlargement of the abdominal aorta. Examination of the extremities revealed easily palpable radial, femoral and pedal pulses. There was no cyanosis, clubbing or edema. Examination of the skin revealed no evidence of significant rashes, suspicious appearing nevi or other concerning lesions. Neurologically arousable yet still sedated. Pupils are equal and reactive to light. - Labs CBC & Chem 7: 08/16/18 04:55 08/16/18 04:55 Labs: Abnormal Lab Results - Last 24 Hours (Table) 08/12/18 08/15/18 08/15/18 Range/Units 11:24 15:55 16:06 WBC (3.8-10.6) k/uL RBC 3.47 L (4.30-5.90) m/uL Hgb 10.2 L D (13.0-17.5) gm/dL Hct 31.1 L (39.0-53.0) % Plt Count 138 L (150-450) k/uL Neutrophils # (1.3-7.7) k/uL Lymphocytes # (1.0-4.8) k/uL APTT (22.0-30.0) sec ABG pH 7.27 L (7.35-7.45) ABG pCO2 61 H (35-45) mmHg ABG pO2 139 H (83-108) mmHg ABG HCO3 28 H (21-25) mmol/L ABG Total CO2 29 H (19-24) mmol/L ABG O2 Saturation 98.7 H (94-97) % Chloride (98-107) mmol/L BUN (9-20) mg/dL Glucose (74-99) mg/dL POC Glucose (mg/dL) (75-99) mg/dL Total Bilirubin (0.2-1.3) mg/dL AST (17-59) U/L Total Protein (6.3-8.2) g/dL Albumin (3.5-5.0) g/dL Crossmatch See Detail 08/15/18 08/15/18 08/15/18 Range/Units 16:37 17:31 17:34 WBC (3.8-10.6) k/uL RBC (4.30-5.90) m/uL Hgb (13.0-17.5) gm/dL Hct (39.0-53.0) % Plt Count (150-450) k/uL Neutrophils # (1.3-7.7) k/uL Lymphocytes # (1.0-4.8) k/uL APTT (22.0-30.0) sec ABG pH 7.34 L (7.35-7.45) ABG pCO2 48 H (35-45) mmHg ABG pO2 (83-108) mmHg ABG HCO3 26 H (21-25) mmol/L ABG Total CO2 28 H (19-24) mmol/L ABG O2 Saturation 97.1 H (94-97) % Chloride (98-107) mmol/L BUN (9-20) mg/dL Glucose (74-99) mg/dL POC Glucose (mg/dL) 113 H 118 H (75-99) mg/dL Total Bilirubin (0.2-1.3) mg/dL AST (17-59) U/L Total Protein (6.3-8.2) g/dL Albumin (3.5-5.0) g/dL Crossmatch 08/15/18 08/15/18 08/15/18 Range/Units 18:29 18:30 18:30 WBC 12.4 H (3.8-10.6) k/uL RBC 3.41 L (4.30-5.90) m/uL Hgb 10.0 L (13.0-17.5) gm/dL Hct 31.0 L (39.0-53.0) % Plt Count (150-450) k/uL Neutrophils # 10.2 H (1.3-7.7) k/uL Lymphocytes # 0.9 L (1.0-4.8) k/uL APTT (22.0-30.0) sec ABG pH 7.32 L (7.35-7.45) ABG pCO2 50 H (35-45) mmHg ABG pO2 (83-108) mmHg ABG HCO3 26 H (21-25) mmol/L ABG Total CO2 28 H (19-24) mmol/L ABG O2 Saturation (94-97) % Chloride (98-107) mmol/L BUN (9-20) mg/dL Glucose (74-99) mg/dL POC Glucose (mg/dL) 133 H (75-99) mg/dL Total Bilirubin (0.2-1.3) mg/dL AST (17-59) U/L Total Protein (6.3-8.2) g/dL Albumin (3.5-5.0) g/dL Crossmatch 08/15/18 08/15/18 08/15/18 Range/Units 19:12 19:39 20:12 WBC (3.8-10.6) k/uL RBC (4.30-5.90) m/uL Hgb (13.0-17.5) gm/dL Hct (39.0-53.0) % Plt Count (150-450) k/uL Neutrophils # (1.3-7.7) k/uL Lymphocytes # (1.0-4.8) k/uL APTT (22.0-30.0) sec ABG pH (7.35-7.45) ABG pCO2 (35-45) mmHg ABG pO2 (83-108) mmHg ABG HCO3 (21-25) mmol/L ABG Total CO2 (19-24) mmol/L ABG O2 Saturation (94-97) % Chloride 109 H (98-107) mmol/L BUN (9-20) mg/dL Glucose 123 H (74-99) mg/dL POC Glucose (mg/dL) 146 H 138 H (75-99) mg/dL Total Bilirubin 1.5 H (0.2-1.3) mg/dL AST 143 H (17-59) U/L Total Protein 5.5 L (6.3-8.2) g/dL Albumin 3.4 L (3.5-5.0) g/dL Crossmatch 08/15/18 08/15/18 08/15/18 Range/Units 21:12 22:00 22:06 WBC 11.7 H (3.8-10.6) k/uL RBC 3.33 L (4.30-5.90) m/uL Hgb 9.8 L (13.0-17.5) gm/dL Hct 29.9 L (39.0-53.0) % Plt Count (150-450) k/uL Neutrophils # 10.0 H (1.3-7.7) k/uL Lymphocytes # 0.6 L (1.0-4.8) k/uL APTT (22.0-30.0) sec ABG pH (7.35-7.45) ABG pCO2 (35-45) mmHg ABG pO2 (83-108) mmHg ABG HCO3 (21-25) mmol/L ABG Total CO2 (19-24) mmol/L ABG O2 Saturation (94-97) % Chloride (98-107) mmol/L BUN (9-20) mg/dL Glucose (74-99) mg/dL POC Glucose (mg/dL) 133 H 137 H (75-99) mg/dL Total Bilirubin (0.2-1.3) mg/dL AST (17-59) U/L Total Protein (6.3-8.2) g/dL Albumin (3.5-5.0) g/dL Crossmatch 08/15/18 08/16/18 08/16/18 Range/Units 23:12 00:16 01:16 WBC (3.8-10.6) k/uL RBC (4.30-5.90) m/uL Hgb (13.0-17.5) gm/dL Hct (39.0-53.0) % Plt Count (150-450) k/uL Neutrophils # (1.3-7.7) k/uL Lymphocytes # (1.0-4.8) k/uL APTT (22.0-30.0) sec ABG pH (7.35-7.45) ABG pCO2 (35-45) mmHg ABG pO2 (83-108) mmHg ABG HCO3 (21-25) mmol/L ABG Total CO2 (19-24) mmol/L ABG O2 Saturation (94-97) % Chloride (98-107) mmol/L BUN (9-20) mg/dL Glucose (74-99) mg/dL POC Glucose (mg/dL) 162 H 144 H 144 H (75-99) mg/dL Total Bilirubin (0.2-1.3) mg/dL AST (17-59) U/L Total Protein (6.3-8.2) g/dL Albumin (3.5-5.0) g/dL Crossmatch 08/16/18 08/16/18 08/16/18 Range/Units 02:08 03:02 04:11 WBC (3.8-10.6) k/uL RBC (4.30-5.90) m/uL Hgb (13.0-17.5) gm/dL Hct (39.0-53.0) % Plt Count (150-450) k/uL Neutrophils # (1.3-7.7) k/uL Lymphocytes # (1.0-4.8) k/uL APTT (22.0-30.0) sec ABG pH (7.35-7.45) ABG pCO2 (35-45) mmHg ABG pO2 (83-108) mmHg ABG HCO3 (21-25) mmol/L ABG Total CO2 (19-24) mmol/L ABG O2 Saturation (94-97) % Chloride (98-107) mmol/L BUN (9-20) mg/dL Glucose (74-99) mg/dL POC Glucose (mg/dL) 154 H 153 H 158 H (75-99) mg/dL Total Bilirubin (0.2-1.3) mg/dL AST (17-59) U/L Total Protein (6.3-8.2) g/dL Albumin (3.5-5.0) g/dL Crossmatch 08/16/18 08/16/18 08/16/18 Range/Units 04:55 04:55 04:55 WBC 12.7 H (3.8-10.6) k/uL RBC 3.39 L (4.30-5.90) m/uL Hgb 10.0 L (13.0-17.5) gm/dL Hct 31.1 L (39.0-53.0) % Plt Count (150-450) k/uL Neutrophils # 11.1 H (1.3-7.7) k/uL Lymphocytes # 0.7 L (1.0-4.8) k/uL APTT 21.6 L (22.0-30.0) sec ABG pH (7.35-7.45) ABG pCO2 (35-45) mmHg ABG pO2 (83-108) mmHg ABG HCO3 (21-25) mmol/L ABG Total CO2 (19-24) mmol/L ABG O2 Saturation (94-97) % Chloride (98-107) mmol/L BUN 22 H (9-20) mg/dL Glucose 135 H (74-99) mg/dL POC Glucose (mg/dL) (75-99) mg/dL Total Bilirubin (0.2-1.3) mg/dL AST 163 H (17-59) U/L Total Protein 5.6 L (6.3-8.2) g/dL Albumin (3.5-5.0) g/dL Crossmatch 08/16/18 08/16/18 08/16/18 Range/Units 04:55 06:10 07:00 WBC (3.8-10.6) k/uL RBC (4.30-5.90) m/uL Hgb (13.0-17.5) gm/dL Hct (39.0-53.0) % Plt Count (150-450) k/uL Neutrophils # (1.3-7.7) k/uL Lymphocytes # (1.0-4.8) k/uL APTT (22.0-30.0) sec ABG pH (7.35-7.45) ABG pCO2 (35-45) mmHg ABG pO2 (83-108) mmHg ABG HCO3 (21-25) mmol/L ABG Total CO2 (19-24) mmol/L ABG O2 Saturation (94-97) % Chloride (98-107) mmol/L BUN (9-20) mg/dL Glucose (74-99) mg/dL POC Glucose (mg/dL) 146 H 130 H 152 H (75-99) mg/dL Total Bilirubin (0.2-1.3) mg/dL AST (17-59) U/L Total Protein (6.3-8.2) g/dL Albumin (3.5-5.0) g/dL Crossmatch 08/16/18 08/16/18 08/16/18 Range/Units 08:14 09:03 10:14 WBC (3.8-10.6) k/uL RBC (4.30-5.90) m/uL Hgb (13.0-17.5) gm/dL Hct (39.0-53.0) % Plt Count (150-450) k/uL Neutrophils # (1.3-7.7) k/uL Lymphocytes # (1.0-4.8) k/uL APTT (22.0-30.0) sec ABG pH (7.35-7.45) ABG pCO2 (35-45) mmHg ABG pO2 (83-108) mmHg ABG HCO3 (21-25) mmol/L ABG Total CO2 (19-24) mmol/L ABG O2 Saturation (94-97) % Chloride (98-107) mmol/L BUN (9-20) mg/dL Glucose (74-99) mg/dL POC Glucose (mg/dL) 156 H 152 H 157 H (75-99) mg/dL Total Bilirubin (0.2-1.3) mg/dL AST (17-59) U/L Total Protein (6.3-8.2) g/dL Albumin (3.5-5.0) g/dL Crossmatch 08/16/18 08/16/18 08/16/18 Range/Units 11:20 12:17 13:18 WBC (3.8-10.6) k/uL RBC (4.30-5.90) m/uL Hgb (13.0-17.5) gm/dL Hct (39.0-53.0) % Plt Count (150-450) k/uL Neutrophils # (1.3-7.7) k/uL Lymphocytes # (1.0-4.8) k/uL APTT (22.0-30.0) sec ABG pH (7.35-7.45) ABG pCO2 (35-45) mmHg ABG pO2 (83-108) mmHg ABG HCO3 (21-25) mmol/L ABG Total CO2 (19-24) mmol/L ABG O2 Saturation (94-97) % Chloride (98-107) mmol/L BUN (9-20) mg/dL Glucose (74-99) mg/dL POC Glucose (mg/dL) 134 H 127 H 125 H (75-99) mg/dL Total Bilirubin (0.2-1.3) mg/dL AST (17-59) U/L Total Protein (6.3-8.2) g/dL Albumin (3.5-5.0) g/dL Crossmatch 08/16/18 Range/Units 14:12 WBC (3.8-10.6) k/uL RBC (4.30-5.90) m/uL Hgb (13.0-17.5) gm/dL Hct (39.0-53.0) % Plt Count (150-450) k/uL Neutrophils # (1.3-7.7) k/uL Lymphocytes # (1.0-4.8) k/uL APTT (22.0-30.0) sec ABG pH (7.35-7.45) ABG pCO2 (35-45) mmHg ABG pO2 (83-108) mmHg ABG HCO3 (21-25) mmol/L ABG Total CO2 (19-24) mmol/L ABG O2 Saturation (94-97) % Chloride (98-107) mmol/L BUN (9-20) mg/dL Glucose (74-99) mg/dL POC Glucose (mg/dL) 130 H (75-99) mg/dL Total Bilirubin (0.2-1.3) mg/dL AST (17-59) U/L Total Protein (6.3-8.2) g/dL Albumin (3.5-5.0) g/dL Crossmatch Assessment and Plan Plan: 1 mitral valve replacement, mechanical valve, in addition to 2 vessel bypass surgery and clipping of the atrial appendage. Patient is postop day #1 2 post thoracotomy, currently intubated on a mechanical ventilator. Chest x- ray reveals adequate expansion of both lungs. Chest tubes are in place. The patient has some increased pulmonary vascular congestion. Currently on FiO2 of 60% with a PEEP of 10. There is a component of respiratory acidosis and the blood gases in the tidal volume was kept at 550 and the respiratory rate was increased up to 20 3 known history of coronary artery disease with previous stenting of RCA 4 history of severe mitral regurgitation with the current hospital physician Jose cohen and pulmonary edema 5 history of chronic atrial fibrillation, current rhythm is paced at the rate of 85 and underlying postop cardiac rhythm is third-degree AV block 6 history of left atrial appendage clot 7 history of sleep apnea combination of obstructive and central he was being treated with CPAP at a pressure of 9 cm of water 8 hypertension 9 diverticular disease 10 Osteoarthritis Plan: Continue encouraging deep breathing and coughing, today's chest x-ray has been reviewed by Dr. Garcia, and showed stable scattered infiltrates atelectasis. Maintain pain control. Patient is in sinus rhythm, he is not bradycardicm rate is 74 BPM, hemodynamically stable. Nonoliguric. Continue nebulized bronchodilators. Daily chest x-rays and labs. Taking Toprol, patient will remain in the intensive care unit today I performed a history & physical examination of the patient and discussed their management with my nurse practitioner, Shonda Dunlap. I reviewed the nurse practitioner's note and agree with the documented findings and plan of care. Lung sounds are clear. The findings and the impression was discussed with the patient. I attest to the documentation by the nurse practitioner. Time with Patient: Greater than 30
--- NOTE | 2018-08-16 16:49 | P.CRDCN ---
History of Present Illness Consult date: 08/16/18 History of present illness: This is a 53-year-old gentleman with history of mitral regurgitation and also ischemic heart disease who underwent mitral valve replacement with a tissue valve in addition to modified Wolf Maze procedure, clipping of the left atrial appendage. And two-vessel bypass surgery. Patient is extubated at the time of my examination. Complains of soreness in the chest. Hemodynamically seems to be stable. He still had chest tube and also mediastinal tube. A she seemed to be in a sinus rhythm with first-degree heart block. His cardiac index in the range of 2.6. Patient's pacemaker is in VVI mode. Overall patient seemed to be progressing fairly well at this time. We'll continue to follow him Review of Systems As per the chart Past Medical History Past Medical History: Atrial Fibrillation, Coronary Artery Disease (CAD), Heart Failure, GERD/Reflux, Hyperlipidemia, Hypertension, Sleep Apnea/CPAP/BIPAP Additional Past Medical History / Comment(s): . History of Any Multi-Drug Resistant Organisms: None Reported Past Surgical History: Appendectomy, Heart Catheterization With Stent Additional Past Surgical History / Comment(s): cardioversions x 3, stent to RCA, DYLAN X2,colonoscopy, EGD, Past Anesthesia/Blood Transfusion Reactions: No Reported Reaction Date of Last Stent Placement:: 01/22/18 Smoking Status: Former smoker - Past Family History Father Family Medical History: Congestive Heart Failure (CHF) Additional Family Medical History / Comment(s): Father from CHF at the age of 68yrs. Mother Family Medical History: No Reported History Additional Family Medical History / Comment(s): Mother at the age of 62 or 63 yrs from myasthenia gravis. Medications and Allergies Home Medications Medication Instructions Recorded Confirmed Type Multivitamin [Men's Multi-Vitamin] 1 tab PO DAILY 01/22/14 08/15/18 History Fish Oil/Dha/Epa [Fish Oil 1,200 1 cap PO DAILY 11/06/17 08/15/18 History mg Fish Oil] Atorvastatin [Lipitor] 80 mg PO HS #90 tab 01/24/18 08/15/18 Rx Nitroglycerin Sl Tabs [Nitrostat] 0.4 mg SUBLINGUAL Q5M PRN #25 tab 01/24/1802/25 Rx Citalopram Hydrobromide [CeleXA] 10 mg PO DAILY 04/14/18 08/15/18 History Omeprazole 20 mg PO DAILY 04/14/18 08/15/18 History Metoprolol Tartrate [Lopressor] 50 mg PO BID 05/08/18 08/15/18 History Furosemide [Lasix] 40 mg PO QAM 06/14/18 08/15/18 History Lisinopril [Zestril] 2.5 mg PO DAILY 30 Days #30 tab 06/16/18 08/15/18 Rx Furosemide [Lasix] 20 mg PO DAILY@1600 07/04/18 08/15/18 History Umeclidinium Brm/Vilanterol Tr 1 puff INHALATION RT-DAILY 07/04/18 08/15/18 History [Anoro Ellipta 62.5-25 Mcg INH] Amiodarone [Cordarone] 200 mg PO TID #90 tab 07/26/18 08/15/18 Rx Aspirin 81 mg PO DAILY 08/12/18 08/15/18 History Clopidogrel [Plavix] 75 mg PO DAILY 08/15/18 08/15/18 History Rivaroxaban [Xarelto] 20 mg PO DAILY 08/15/18 08/15/18 History Umeclidinium Brm/Vilanterol Tr 62.5 mcg INHALATION DAILY 08/15/18 08/15/18 History [Anoro Ellipta 62.5-25 Mcg INH] Allergies Allergy/AdvReac Type Severity Reaction Status Date / Time Penicillins Allergy Unknown Verified 08/15/18 16:17 Childhood Physical Exam Vitals: Vital Signs Temp Pulse Pulse Pulse Pulse Resp BP 08/16/18 15:56 66 08/16/18 15:44 64 08/16/18 15:28 08/16/18 15:00 61 18 108/66 08/16/18 14:00 64 16 08/16/18 13:00 63 17 08/16/18 12:00 98.9 F 66 14 08/16/18 11:13 81 08/16/18 11:01 80 08/16/18 11:00 60 14 08/16/18 10:00 63 16 08/16/18 09:00 64 12 08/16/18 08:02 82 08/16/18 08:00 36.7 F L 60 20 08/16/18 07:50 80 08/16/18 07:00 80 21 08/16/18 06:00 79 16 08/16/18 05:00 80 11 L 08/16/18 04:30 79 20 08/16/18 04:00 80 12 08/16/18 03:00 78 16 08/16/18 02:00 79 16 08/16/18 01:00 80 11 L 08/16/18 00:30 80 15 08/16/18 00:00 80 80 80 80 14 08/15/18 23:30 80 17 08/15/18 23:00 80 11 L 08/15/18 22:30 80 32 H 08/15/18 22:00 80 15 08/15/18 21:30 83 8 L 08/15/18 21:00 97.9 F 85 10 L 08/15/18 20:47 84 08/15/18 20:31 88 08/15/18 20:30 80 7 L 08/15/18 20:00 80 80 80 08/15/18 19:30 86 16 08/15/18 19:00 86 18 08/15/18 18:54 08/15/18 18:45 84 23 08/15/18 18:30 85 20 08/15/18 18:15 85 20 08/15/18 18:00 86 20 08/15/18 17:45 84 20 08/15/18 17:30 84 20 08/15/18 17:15 89 20 08/15/18 17:00 90 20 08/15/18 16:50 90 08/15/18 16:45 84 20 Pulse Ox 08/16/18 15:56 08/16/18 15:44 08/16/18 15:28 96 08/16/18 15:00 93 L 08/16/18 14:00 94 L 08/16/18 13:00 94 L 08/16/18 12:00 96 08/16/18 11:13 08/16/18 11:01 08/16/18 11:00 94 L 08/16/18 10:00 95 08/16/18 09:00 95 08/16/18 08:02 08/16/18 08:00 98 08/16/18 07:50 94 L 08/16/18 07:00 96 08/16/18 06:00 97 08/16/18 05:00 95 12/07/18 04:30 94 L 08/16/18 04:00 94 L 08/16/18 03:00 95 08/16/18 02:00 95 08/16/18 01:00 96 08/16/18 00:30 96 08/16/18 00:00 08/15/18 23:30 93 L 08/15/18 23:00 96 08/15/18 22:30 96 08/15/18 22:00 96 08/15/18 21:30 94 L 08/15/18 21:00 96 08/15/18 20:47 08/15/18 20:31 08/15/18 20:30 95 08/15/18 20:00 08/15/18 19:30 93 L 08/15/18 19:00 93 L 08/15/18 18:54 93 L 08/15/18 18:45 96 08/15/18 18:30 96 08/15/18 18:15 96 08/15/18 18:00 95 08/15/18 17:45 96 08/15/18 17:30 96 08/15/18 17:15 95 08/15/18 17:00 96 08/15/18 16:50 08/15/18 16:45 99 Intake and Output 08/16/18 08/16/18 08/16/18 06:59 14:59 22:59 Intake Total 1385.282 912.377 46.284 Output Total 695 1245 120 Balance 690.282 -332.623 -73.716 Intake: IV 624.0 694.5 26 ACETAMINOPHEN IV (For NPO 100 100 ) 1,000 mg In Empty Bag 1 bag @ 400 mls/hr IVPB Q6HR [facility] Rx#:[id number] CO/CI 90 30 Lactated Ringers 1,000 ml 350 400 20 @ 50 mls/hr IV .Q20H [facility] Rx#:[id number] Magnesium Sulfate-D5w Pmx 100 1 gm In Dextrose/Water 1 100ml.bag @ 100 mls/hr IVPB Q1H [facility] Rx#: [id number] Nitroglycerin-D5w Pmx 50 12.0 1.5 mg In Dextrose/Water 1 250ml.bag @ 5 MCG/MIN 1.5 mls/hr IV .Q24H [facility] Rx#: [id number] art,cvp,pa line 72 63 6 Intake, IV Titration 41.282 47.877 20.284 Amount Heparin Sodium,Porcine 5, 20 000 unit In Sodium Chloride 0.9% 500 ml 500 ml @ Per Protocol IV ONCE ONE Rx#:[id number] Insulin Regular 100 unit 21.282 27.877 20.284 In Sodium Chloride 0.9% 100 ml @ Per Protocol IV .Q0M [facility] Rx#:[id number] ceFAZolin 2,000 mg In 20 Sodium Chloride 0.9% 30 ml @ Per Protocol IVPB ONCE ONE Rx#:[id number] Oral 240 170 Blood Product 480 Output: Chest Tube Drainage 150 290 50 Chest Tube Right Pleural/ 150 290 50 Mediastinal Urine 345 955 70 Emesis 200 Other: Voiding Method Indwelling Catheter Indwelling Catheter Weight 123 kg 123 kg ABP, PAP, CO, CI - Last 8 Hours Arterial Blood Pressure 104/58 Arterial Blood Pressure 104/42 Arterial Blood Pressure 95/55 Arterial Blood Pressure 115/59 Arterial Blood Pressure 99/48 Arterial Blood Pressure 97/48 Arterial Blood Pressure 115/52 Pulmonary Artery Pressure 40/15 Pulmonary Artery Pressure 37/17 Pulmonary Artery Pressure 37/19 Cardiac Output 9.9 GENERAL EXAM: Patient is alert and oriented and doesn't appear to be in any acute distress HEENT: Normocephalic. Normal reaction of pupils, equal size, normal range of extraocular motion. No erythema or exudates in the throat. NECK: No masses, no nuchal rigidity. CHEST: Postsurgical accept default's LUNGS: Diminished breath sounds at bases HEART: S1 and S2 normal . Distant heart sounds ABDOMEN: Soft CENTRAL NERVOUS SYSTEM: No focal deficits. EXTREMITIES: No cyanosis, clubbing or edema. Results 08/16/18 04:55 08/16/18 04:55 Cardiac Enzymes 08/15/18 08/15/18 08/16/18 Range/Units 16:40 19:39 04:55 AST Cancelled 143 H 163 H Coagulation 08/15/18 08/16/18 Range/Units 15:55 04:55 PT 10.9 10.0 (9.0-12.0) sec APTT 24.2 21.6 L (22.0-30.0) sec CBC 08/15/18 08/15/18 08/16/18 Range/Units 18:30 22:00 04:55 WBC 12.4 H 11.7 H 12.7 H (3.8-10.6) k/uL RBC 3.41 L 3.33 L 3.39 L (4.30-5.90) m/uL Hgb 10.0 L 9.8 L 10.0 L (13.0-17.5) gm/dL Hct 31.0 L 29.9 L 31.1 L (39.0-53.0) % Plt Count 158 153 165 (150-450) k/uL Comprehensive Metabolic Panel 08/15/18 08/15/18 08/16/18 Range/Units 16:40 19:39 04:55 Sodium Cancelled 140 140 Potassium Cancelled 5.1 4.9 Chloride Cancelled 109 H 107 Carbon Dioxide Cancelled 24 24 BUN Cancelled 18 22 H Creatinine Cancelled 0.84 0.71 Glucose Cancelled 123 H 135 H Calcium Cancelled 9.0 8.9 AST Cancelled 143 H 163 H ALT Cancelled 46 50 Alkaline Phosphatase Cancelled 57 40 Total Protein Cancelled 5.5 L 5.6 L Albumin Cancelled 3.4 L 3.6 Current Medications Generic Name Dose Route Start Last Admin Trade Name Freq PRN Reason Stop Dose Admin Hydrocodone Bitart/Acetaminophen 2 each 08/16/18 15:16 [place] 5-325 PO Q4HR PRN Severe Pain Hydrocodone Bitart/Acetaminophen 1 each 08/16/18 15:16 [place] 5-325 PO Q4HR PRN Moderate Pain Albuterol/Ipratropium 3 ml 08/15/18 15:28 Duoneb 0.5 Mg-3 Mg/3 Ml Soln INHALATION RT-Q2H PRN Shortness Of Breath Or Wheezing Albuterol/Ipratropium 3 ml 08/15/18 21:18 08/16/18 15:43 Duoneb 0.5 Mg-3 Mg/3 Ml Soln INHALATION 3 ml RT-QID [facility] Administration Aspirin 325 mg 08/16/18 09:00 08/16/18 08:39 Aspirin PO 325 mg DAILY [facility] Administration Atorvastatin Calcium 40 mg 08/16/18 15:17 Lipitor PO DAILY [facility] Benzocaine 1 spray 08/15/18 15:58 Hurricaine [place] TOPICAL QID PRN Skin Irritation Benzocaine/Menthol 1 each 12/06/18 15:28 Cepacol Lozenge MUCOUS MEM Q2H PRN Sore Throat Bisacodyl 10 mg 08/16/18 15:17 Dulcolax RECTAL DAILY PRN Constipation Citalopram Hydrobromide 10 mg 08/16/18 09:00 08/16/18 08:39 Celexa PO 10 mg DAILY [facility] Administration Clopidogrel Bisulfate 75 mg 08/16/18 15:20 Plavix PO DAILY [facility] Fentanyl Citrate 50 mcg 08/15/18 16:40 08/16/18 14:45 Sublimaze IVP 50 mcg Q2HR PRN Administration Pain Heparin Sodium (Porcine) 5,000 unit 08/15/18 23:17 08/16/18 08:39 Heparin SQ 5,000 unit Q8HR [facility] Administration Acetaminophen 1,000 mg/ IV 100 mls @ 400 mls/hr 08/15/18 18:00 08/16/18 12:28 Solution IVPB 08/16/18 18:01 400 mls/hr Q6HR [facility] Administration Albumin Human 250 ml/ IV 250 mls @ 250 mls/hr 08/15/18 15:28 08/15/18 17:23 Solution IVPB 08/17/18 15:29 250 mls/hr Q1HR PRN Administration For Volume Amiodarone HCl 150 mg/ 103 mls @ 618 mls/hr 08/15/18 15:28 Dextrose/Water IV .Q10M PRN Per protocol Protocol Amiodarone HCl 450 mg/ 259 mls @ 34.53 mls/hr 08/15/18 15:28 Dextrose/Water IV .Q7H31M PRN Per Protocol Protocol 1 MG/MIN Calcium Chloride 1,000 mg/ 110 mls @ 100 mls/hr 08/15/18 15:28 Sodium Chloride IV 09/14/18 15:29 ONCE PRN Ionized Calcium less than 4.4 Clevidipine 25 mg/ IV Solution 50 mls @ 2 mls/hr 08/15/18 15:28 08/16/18 16: 25 IV Not Given .Q24H [facility] Protocol 1 MG/HR Insulin Human Regular 100 unit 101 mls @ 0 mls/hr 08/15/18 15:28 08/16/18 16: 20 / Sodium Chloride IV 4.5 unit/hr .Q0M [facility] 4.54 mls/hr Titration Protocol Per Protocol Lactated Ringer's 1,000 mls @ 50 mls/hr 08/15/18 15:28 08/16/18 16:25 Lactated Ringers IV 50 mls/hr .Q20H [facility] Administration Ketorolac Tromethamine 15 mg 08/16/18 07:30 08/16/18 12:29 Toradol IVP 08/21/18 07:31 15 mg Q6HR [facility] Administration Magnesium Hydroxide 2,400 mg 08/16/18 15:17 Milk Of Magnesia PO BID PRN Constipation Metoclopramide HCl 10 mg 08/15/18 15:28 Reglan IVP Q4H PRN Nausea And Vomiting Miscellaneous Information 1 each 08/15/18 15:28 Magnesium Per Protocol MISCELLANE DAILY PRN Per Protocol Protocol Miscellaneous Information 1 each 08/15/18 15:28 Phosphorus Per Protocol MISCELLANE DAILY PRN Per Protocol Protocol Miscellaneous Information 1 each 08/15/18 15:28 Potassium Per Protocol MISCELLANE DAILY PRN Per Protocol Protocol Miscellaneous Information 1 each 08/16/18 05:48 Magnesium Per Protocol MISCELLANE DAILY PRN Per Protocol Protocol Miscellaneous Information 1 each 08/16/18 05:20 Magnesium Per Protocol MISCELLANE DAILY PRN Per Protocol Protocol Mupirocin 1 applic 08/15/18 21:00 08/16/18 08:40 Bactroban Oint NASAL 08/18/18 21:01 1 applic BID [facility] Administration Ondansetron HCl 4 mg 08/15/18 15:28 Zofran IVP Q6HR PRN Nausea And Vomiting Pantoprazole Sodium 40 mg 08/16/18 09:00 08/16/18 08:39 Protonix IVP 40 mg DAILY [facility] Administration Senna/Docusate Sodium 2 each 08/16/18 21:00 Senokot-S PO HS [facility] Sodium Chloride 10 ml 08/15/18 21:00 08/16/18 08:40 Saline Flush IV 10 ml BID [facility] Administration Intake and Output 08/16/18 08/16/18 08/16/18 06:59 14:59 22:59 Intake Total 1385.282 912.377 46.284 Output Total 695 1245 120 Balance 690.282 -332.623 -73.716 Intake: IV 624.0 694.5 26 ACETAMINOPHEN IV (For NPO 100 100 ) 1,000 mg In Empty Bag 1 bag @ 400 mls/hr IVPB Q6HR [facility] Rx#:[id number] CO/CI 90 30 Lactated Ringers 1,000 ml 350 400 20 @ 50 mls/hr IV .Q20H [facility] Rx#:[id number] Magnesium Sulfate-D5w Pmx 100 1 gm In Dextrose/Water 1 100ml.bag @ 100 mls/hr IVPB Q1H [facility] Rx#: [id number] Nitroglycerin-D5w Pmx 50 12.0 1.5 mg In Dextrose/Water 1 250ml.bag @ 5 MCG/MIN 1.5 mls/hr IV .Q24H [facility] Rx#: [id number] art,cvp,pa line 72 63 6 Intake, IV Titration 41.282 47.877 20.284 Amount Heparin Sodium,Porcine 5, 20 000 unit In Sodium Chloride 0.9% 500 ml 500 ml @ Per Protocol IV ONCE ONE Rx#:[id number] Insulin Regular 100 unit 21.282 27.877 20.284 In Sodium Chloride 0.9% 100 ml @ Per Protocol IV .Q0M [facility] Rx#:[id number] ceFAZolin 2,000 mg In 20 Sodium Chloride 0.9% 30 ml @ Per Protocol IVPB ONCE ONE Rx#:[id number] Oral 240 170 Blood Product 480 Output: Chest Tube Drainage 150 290 50 Chest Tube Right Pleural/ 150 290 50 Mediastinal Urine 345 955 70 Emesis 200 Other: Voiding Method Indwelling Catheter Indwelling Catheter Weight 123 kg 123 kg Patient Weight 08/17/18 06:59 Weight 123 kg 08/16/18 04:55 08/16/18 04:55 EKG Interpretations (text) Sinus rhythm with first-degree heart block Assessment and Plan (1) CAD (coronary artery disease) Current Visit: Yes Status: Chronic Code(s): I25.10 - ATHSCL HEART DISEASE OF [place] CORONARY ARTERY W/O ANG PCTRS SNOMED Code(s): 69123844 (2) Hypertension Current Visit: Yes Status: Chronic Code(s): I10 - ESSENTIAL (PRIMARY) HYPERTENSION SNOMED Code(s): 99065812 (3) Mitral regurgitation Current Visit: Yes Status: Chronic Code(s): I34.0 - NONRHEUMATIC MITRAL ( VALVE) INSUFFICIENCY SNOMED Code(s): 85951815 (4) Status post mitral valve replacement Current Visit: Yes Status: Acute Code(s): Z95.2 - PRESENCE OF PROSTHETIC HEART VALVE SNOMED Code(s): 2800136959946 Plan: Patient seemed to be hemodynamically stable. No arrhythmias except sinus bradycardia and first-degree heart block. Continue current medical therapy. Incentive spirometry.
[2018-08-16] MEDS: ATORVASTATIN 40 MG TAB PO SCH (18:01)
[2018-08-16] MEDS: CLOPIDOGREL 75 MG TAB PO SCH (18:02)
[2018-08-16 18:33] LABS: Glucose,Whole Blood 185 mg/dL (75-99)
[2018-08-16 19:34] LABS: Glucose,Whole Blood 173 mg/dL (75-99)
[2018-08-16 20:22] LABS: Glucose,Whole Blood 143 mg/dL (75-99)
[2018-08-16] MEDS: SENNOSIDES-DOCUSATE SODIUM 1 EACH TAB PO SCH (21:11)
[2018-08-16 21:17] LABS: Glucose,Whole Blood 128 mg/dL (75-99)
[2018-08-16] MEDS: HYDROcodone/APAP 5-325MG 1 EACH TAB PO PRN (21:17)
[2018-08-16 22:13] LABS: Glucose,Whole Blood 120 mg/dL (75-99)
[2018-08-16 23:19] LABS: Glucose,Whole Blood 108 mg/dL (75-99)
[2018-08-17 00:28] LABS: Glucose,Whole Blood 128 mg/dL (75-99)
[2018-08-17 01:30] LABS: Glucose,Whole Blood 130 mg/dL (75-99)
[2018-08-17 02:28] LABS: Glucose,Whole Blood 136 mg/dL (75-99)
[2018-08-17 03:24] LABS: Glucose,Whole Blood 120 mg/dL (75-99)
[2018-08-17] MEDS: fentaNYL (PF) 50 MCG/ML 2 ML AMP IVP PRN (03:24)
[2018-08-17] MEDS: HYDROcodone/APAP 5-325MG 1 EACH TAB PO PRN (03:29)
[2018-08-17 04:54] LABS: Glucose,Whole Blood 155 mg/dL (75-99)
[2018-08-17 05:19] LABS: Glucose,Whole Blood 141 mg/dL (75-99)
[2018-08-17 05:45] LABS: Basophils % (A) 0 %; Eosinophils # (A) 0.1 k/uL (0-0.7); Eosinophils % (A) 1 %; HGB 8.9 gm/dL (13.0-17.5); Lymphocytes # (A) 0.9 k/uL (1.0-4.8); Lymphocytes % (A) 8 %; MCH 29.2 pg (25.0-35.0); MCHC 31.7 g/dL (31.0-37.0); Mean Platelet Volume 8.5; Monocytes # (A) 0.8 k/uL (0-1.0); Monocytes % (A) 7 %; Neutrophils # (A) 9.6 k/uL (1.3-7.7); Neutrophils % (A) 81 %; Platelet Count 139 k/uL (150-450); RBC 3.04 m/uL (4.30-5.90); WBC 11.8 k/uL (3.8-10.6)
[2018-08-17] MEDS: KETOROLAC 30 MG/ML 1 ML VIAL IVP SCH ×3 (05:54→18:01)
[2018-08-17 06:07] LABS: ALT 44 U/L (21-72); AST 113 U/L (17-59); Albumin 3.1 g/dL (3.5-5.0); Alkaline Phosphatase 43 U/L (38-126); Anion Gap 8 mmol/L; Blood Urea Nitrogen 30 mg/dL (9-20); Calcium 8.9 mg/dL (8.4-10.2); Carbon Dioxide 28 mmol/L (22-30); Chloride 103 mmol/L (98-107); Glucose 119 mg/dL (74-99); Magnesium 2.3 mg/dL (1.6-2.3); Potassium 4.5 mmol/L (3.5-5.1); Sodium 139 mmol/L (137-145); Total Protein 5.4 g/dL (6.3-8.2)
[2018-08-17 06:27] LABS: Glucose,Whole Blood 135 mg/dL (75-99)
--- NOTE | 2018-08-17 06:34 | XR ---
EXAMINATION TYPE: XR chest 1V portable DATE OF EXAM: 08/17/2018 HISTORY: Post Operative Cardiac Surgery. REFERENCE: Previous study dated 08/16/2018. FINDINGS: There has been a midline sternotomy. The patient [place] catheter is been removed. A righ t internal jugular sheath remains in place. A right pleural drain is in place. The heart is enlarged. There is vascular congestion and mild edema. I suspect a small left effusion. There is atelectatic change present in both lungs. IMPRESSION: CONTINUING POSTOPERATIVE CHANGE WITH CARDIOMEGALY AND BILATERAL AREAS OF PLATELIKE ATELECTASIS WEL L A SMALL LEFT EFFUSION.
[2018-08-17 07:14] LABS: Glucose,Whole Blood 133 mg/dL (75-99)
[2018-08-17] MEDS: IPRATROPIUM-ALBUTEROL 3 ML NEB INHALATION SCH ×4 (07:54→20:47)
[2018-08-17 08:24] LABS: Glucose,Whole Blood 140 mg/dL (75-99)
[2018-08-17] MEDS: LACTATED RINGERS 1,000 ML IV SCH ×2 (08:28→17:59)
[2018-08-17] MEDS: ATORVASTATIN 40 MG TAB PO SCH (08:29)
[2018-08-17] MEDS: CLOPIDOGREL 75 MG TAB PO SCH (08:29)
[2018-08-17] MEDS: PANTOPRAZOLE 40 MG/10 ML VIAL IVP SCH (08:29)
[2018-08-17] MEDS: CITALOPRAM HYDROBROMIDE 10 MG TAB PO SCH (08:29)
[2018-08-17] MEDS: ASPIRIN 325 MG TAB PO SCH (08:29)
[2018-08-17] MEDS: HEPARIN SODIUM,PORCINE 5,000 UNIT/ML 1 ML VIAL SQ SCH ×2 (08:30→18:00)
[2018-08-17] MEDS: MUPIROCIN 2% OINT 22 GM TUBE NASAL SCH ×2 (08:30→20:35)
[2018-08-17 09:13] LABS: Glucose,Whole Blood 135 mg/dL (75-99)
--- NOTE | 2018-08-17 09:44 | P.PN ---
Subjective Progress Note Date: 08/17/18 Principal diagnosis: Mitral regurgitation. Mitral stenosis. Paroxysmal atrial fibrillation. Coronary artery disease. History of cardioversions, hypertension, hyperlipidemia, obstructive sleep apnea, previous tobacco dependence, mild COPD with preoperative FEV1 68% of predicted, daily EtOH use, GERD, obesity, and family history of premature coronary artery disease with brother diagnosed at 34 and father diagnosed at 42. POD #2 mitral valve replacement with a #31/33 On-X mechanical mitral valve. Coronary bypass grafting 2 with a right internal mammary artery to the right coronary artery, reverse saphenous vein graft off the aorta to the second obtuse marginal artery. Endovascular vein harvest of the left greater saphenous vein. Clip ligation of the left atrial appendage with a #40 mm AtriClip. Complete left-sided maze procedure using radiofrequency and cryoablation. Intraoperative transesophageal echocardiogram. Postoperative acute blood loss anemia, expected post surgical condition secondary to hemodilution and cardiopulmonary bypass pump. The patient is currently sitting up in a recliner in no acute distress. Does complain of some postoperative pain which he states is controlled on current medication regimen, denies shortness of breath, complains of sore throat. Currently hemodynamically stable on no inotropes or pressors. Remains in sinus rhythm with first-degree AV block, pacemaker generator turned down to a VVI backup rate of 50 bpm. No new complaints. He did have some difficulty swallowing yesterday and was placed on pured diet with thickened liquids. Objective - Vital Signs Vital signs: Vital Signs Temp 97.7 F 08/17/18 08:00 Pulse 72 08/17/18 08:09 Resp 11 L 08/17/18 08:00 BP 107/67 08/17/18 08:00 Pulse Ox 98 08/17/18 08:00 Intake & Output 08/16/18 08/17/18 08/17/18 18:59 06:59 18:59 Intake Total 1165.741 930.493 134.25 Output Total 1625 605 175 Balance -459.259 325.493 -40.75 Weight 123 kg 127.9 kg Intake: IV 918.5 572 109 ACETAMINOPHEN IV (For NPO 100 ) 1,000 mg In Empty Bag 1 bag @ 400 mls/hr IVPB Q6HR [facility] Rx#:[id number] CO/CI 30 Lactated Ringers 1,000 ml 600 500 100 @ 50 mls/hr IV .Q20H [facility] Rx#:[id number] Magnesium Sulfate-D5w Pmx 100 1 gm In Dextrose/Water 1 100ml.bag @ 100 mls/hr IVPB Q1H [facility] Rx#: [id number] Nitroglycerin-D5w Pmx 50 1.5 mg In Dextrose/Water 1 250ml.bag @ 5 MCG/MIN 1.5 mls/hr IV .Q24H [facility] Rx#: [id number] art,cvp,pa line 87 72 9 Intake, IV Titration 77.241 38.493 25.25 Amount Insulin Regular 100 unit 57.241 38.493 25.25 In Sodium Chloride 0.9% 100 ml @ Per Protocol IV .Q0M [facility] Rx#:[id number] ceFAZolin 2,000 mg In 20 Sodium Chloride 0.9% 30 ml @ Per Protocol IVPB ONCE ONE Rx#:[id number] Oral 170 320 Output: Chest Tube Drainage 430 270 100 Chest Tube Right Pleural/ 430 270 100 Mediastinal Urine 1195 335 75 Other: Voiding Method Indwelling Catheter Indwelling Catheter ABP, PAP, CO, CI - Last Documented Arterial Blood Pressure 137/135 Pulmonary Artery Pressure 40/15 Cardiac Output 9.9 Cardiac Index 4.1 - Constitutional General appearance: Present: cooperative, no acute distress, obese - Respiratory Details: Lungs sounds diminished bilaterally. Respirations even, nonlabored. Currently on 3 L nasal cannula with oxygen saturation 99%. Able to achieve 5081-4585 mL on his incentive spirometry. Strong cough. Mediastinal/right pleural chest tube to continuous wall suction, 170 mL serosanguineous drainage overnight, 650 mL in the last 24 hours, no air leak present. - Cardiovascular Details: S1, S2 present. Positive valvular click. Regular rate and rhythm, sinus rhythm with first-degree AV block on telemetry. A/V epicardial pacemaker wires present, connected to generator, VVI mode with backup rate 50 beats per minute. Sternum stable. Palpable peripheral pulses bilaterally. No edema present. No calf pain or tenderness noted. Right internal jugular Cordis, left radial arterial line present. Heart hugger in place with patient demonstrating appropriate use. Antiembolism stockings, SCDs present. - Gastrointestinal Gastrointestinal Comment(s): Abdomen soft, nontender, nondistended. Active bowel sounds present 4 quadrants. Tolerating pured diet with thickened liquids. Positive belching, negative flatus. - Genitourinary Genitourinary Comment(s): Santiago present draining clear, yellow urine. Output 10-30 mL per hour overnight. - Integumentary Integumentary Comment(s): Skin is warm and dry with evidence of good perfusion. Anterior chest incision well approximated and covered with dry intact dressing. Left lower extremity EVH site well approximated. - Neurologic Neurologic: Present: CNII-XII intact - Musculoskeletal Musculoskeletal: Present: gait normal, strength equal bilaterally - Psychiatric Psychiatric: Present: A&O x's 3, appropriate affect, intact judgment & insight - Allied health notes Allied health notes reviewed: nursing - Labs CBC & Chem 7: 08/17/18 05:40 08/17/18 05:40 Labs: Abnormal Lab Results - Last 24 Hours (Table) 08/16/18 08/16/18 08/16/18 Range/Units 10:14 11:20 12:17 WBC (3.8-10.6) k/uL RBC (4.30-5.90) m/uL Hgb (13.0-17.5) gm/dL Hct (39.0-53.0) % Plt Count (150-450) k/uL Neutrophils # (1.3-7.7) k/uL Lymphocytes # (1.0-4.8) k/uL BUN (9-20) mg/dL Glucose (74-99) mg/dL POC Glucose (mg/dL) 157 H 134 H 127 H (75-99) mg/dL AST (17-59) U/L Total Protein (6.3-8.2) g/dL Albumin (3.5-5.0) g/dL 08/16/18 08/16/18 08/16/18 Range/Units :18 14:12 16:12 WBC (3.8-10.6) k/uL RBC (4.30-5.90) m/uL Hgb (13.0-17.5) gm/dL Hct (39.0-53.0) % Plt Count (150-450) k/uL Neutrophils # (1.3-7.7) k/uL Lymphocytes # (1.0-4.8) k/uL BUN (9-20) mg/dL Glucose (74-99) mg/dL POC Glucose (mg/dL) 125 H 130 H 115 H (75-99) mg/dL AST (17-59) U/L Total Protein (6.3-8.2) g/dL Albumin (3.5-5.0) g/dL 08/16/18 08/16/18 08/16/18 Range/Units 18:18 19:23 20:11 WBC (3.8-10.6) k/uL RBC (4.30-5.90) m/uL Hgb (13.0-17.5) gm/dL Hct (39.0-53.0) % Plt Count (150-450) k/uL Neutrophils # (1.3-7.7) k/uL Lymphocytes # (1.0-4.8) k/uL BUN (9-20) mg/dL Glucose (74-99) mg/dL POC Glucose (mg/dL) 185 H 173 H 143 H (75-99) mg/dL AST (17-59) U/L Total Protein (6.3-8.2) g/dL Albumin (3.5-5.0) g/dL 08/16/18 08/16/18 08/16/18 Range/Units 21:05 22:02 23:07 WBC (3.8-10.6) k/uL RBC (4.30-5.90) m/uL Hgb (13.0-17.5) gm/dL Hct (39.0-53.0) % Plt Count (150-450) k/uL Neutrophils # (1.3-7.7) k/uL Lymphocytes # (1.0-4.8) k/uL BUN (9-20) mg/dL Glucose (74-99) mg/dL POC Glucose (mg/dL) 128 H 120 H 108 H (75-99) mg/dL AST (17-59) U/L Total Protein (6.3-8.2) g/dL Albumin (3.5-5.0) g/dL 08/17/18 08/17/18 08/17/18 Range/Units 00:14 01:19 02:16 WBC (3.8-10.6) k/uL RBC (4.30-5.90) m/uL Hgb (13.0-17.5) gm/dL Hct (39.0-53.0) % Plt Count (150-450) k/uL Neutrophils # (1.3-7.7) k/uL Lymphocytes # (1.0-4.8) k/uL BUN (9-20) mg/dL Glucose (74-99) mg/dL POC Glucose (mg/dL) 128 H 130 H 136 H (75-99) mg/dL AST (17-59) U/L Total Protein (6.3-8.2) g/dL Albumin (3.5-5.0) g/dL 08/17/18 08/17/18 08/17/18 Range/Units 03:12 04:42 05:07 WBC (3.8-10.6) k/uL RBC (4.30-5.90) m/uL Hgb (13.0-17.5) gm/dL Hct (39.0-53.0) % Plt Count (150-450) k/uL Neutrophils # (1.3-7.7) k/uL Lymphocytes # (1.0-4.8) k/uL BUN (9-20) mg/dL Glucose (74-99) mg/dL POC Glucose (mg/dL) 120 H 155 H 141 H (75-99) mg/dL AST (17-59) U/L Total Protein (6.3-8.2) g/dL Albumin (3.5-5.0) g/dL 08/17/18 08/17/18 08/17/18 Range/Units 05:40 05:40 06:16 WBC 11.8 H (3.8-10.6) k/uL RBC 3.04 L (4.30-5.90) m/uL Hgb 8.9 L (13.0-17.5) gm/dL Hct 28.0 L (39.0-53.0) % Plt Count 139 L (150-450) k/uL Neutrophils # 9.6 H (1.3-7.7) k/uL Lymphocytes # 0.9 L (1.0-4.8) k/uL BUN 30 H (9-20) mg/dL Glucose 119 H (74-99) mg/dL POC Glucose (mg/dL) 135 H (75-99) mg/dL AST 113 H (17-59) U/L Total Protein 5.4 L (6.3-8.2) g/dL Albumin 3.1 L (3.5-5.0) g/dL 08/17/18 08/17/18 08/17/18 Range/Units 07:02 08:12 09:02 WBC (3.8-10.6) k/uL RBC (4.30-5.90) m/uL Hgb (13.0-17.5) gm/dL Hct (39.0-53.0) % Plt Count (150-450) k/uL Neutrophils # (1.3-7.7) k/uL Lymphocytes # (1.0-4.8) k/uL BUN (9-20) mg/dL Glucose (74-99) mg/dL POC Glucose (mg/dL) 133 H 140 H 135 H (75-99) mg/dL AST (17-59) U/L Total Protein (6.3-8.2) g/dL Albumin (3.5-5.0) g/dL - Imaging and Cardiology Chest x-ray: report reviewed, image reviewed Assessment and Plan (1) Mitral regurgitation Current Visit: Yes Status: Chronic Code(s): I34.0 - NONRHEUMATIC MITRAL ( VALVE) INSUFFICIENCY SNOMED Code(s): 52070893 (2) Mitral stenosis Current Visit: Yes Status: Chronic Code(s): I05.0 - RHEUMATIC MITRAL STENOSIS SNOMED Code(s): 73527876 (3) Paroxysmal atrial fibrillation Current Visit: No Status: Resolved Code(s): I48.0 - PAROXYSMAL ATRIAL FIBRILLATION SNOMED Code(s): 468040387 (4) Sleep apnea Current Visit: Yes Status: Chronic Code(s): G47.30 - SLEEP APNEA, UNSPECIFIED SNOMED Code(s): 69558281 (5) COPD (chronic obstructive pulmonary disease) Current Visit: Yes Status: Chronic Code(s): J44.9 - CHRONIC OBSTRUCTIVE PULMONARY DISEASE, UNSPECIFIED SNOMED Code(s): 85396695 (6) Status post mitral valve repair Current Visit: Yes Status: Acute Code(s): Z98.890 - OTHER SPECIFIED POSTPROCEDURAL STATES SNOMED Code(s): 843070878 (7) CAD (coronary artery disease) Current Visit: Yes Status: Chronic Code(s): I25.10 - ATHSCL HEART DISEASE OF [place] CORONARY ARTERY W/O ANG PCTRS SNOMED Code(s): 24801886 (8) Former smoker Current Visit: No Status: Resolved Code(s): Z87.891 - PERSONAL HISTORY OF NICOTINE DEPENDENCE SNOMED Code(s): 8608256 (9) Hypertension Current Visit: Yes Status: Chronic Code(s): I10 - ESSENTIAL (PRIMARY) HYPERTENSION SNOMED Code(s): 45104285 (10) Alcohol abuse Current Visit: Yes Status: Chronic Code(s): F10.10 - ALCOHOL ABUSE, UNCOMPLICATED SNOMED Code(s): 32980544 (11) GERD (gastroesophageal reflux disease) Current Visit: Yes Status: Chronic Code(s): K21.9 - GASTRO-ESOPHAGEAL REFLUX DISEASE WITHOUT ESOPHAGITIS SNOMED Code(s): 030029775 (12) Obesity (BMI 30-39.9) Current Visit: Yes Status: Chronic Code(s): E66.9 - OBESITY, UNSPECIFIED SNOMED Code(s): 178705602 (13) Family history of premature CAD Current Visit: Yes Status: Chronic Code(s): Z82.49 - FAMILY HX OF ISCHEM HEART DIS AND OTH DIS OF THE CIRC SYS SNOMED Code(s): 027792566 Plan: 1. Continue aspirin, statin, Plavix. Will add back in beta laura therapy as tolerated. 2. Will start Coumadin therapy after all lines and tubes have been discontinued. 3. Wean O2 as tolerated. 4. Increase activity, ambulate as tolerated. PT/OT/cardiac rehab following. 5. Will monitor daily labs and x-rays. Electrolyte replacement per protocol. 6. Insulin per primary care service. 7. Pain control with current medication regimen. 8. GI prophylaxis with Protonix. DVT prophylaxis with subcu heparin, SCDs. 9. Bronchodilators per pulmonology. 10. More recommendations to follow. Time with Patient: Greater than 30
[2018-08-17 10:21] LABS: Glucose,Whole Blood 142 mg/dL (75-99)
--- NOTE | 2018-08-17 10:33 | P.PN ---
Subjective Progress Note Date: 08/17/18 Principal diagnosis: Mitral valve replacement, two-vessel bypass grafting. This is a 53-year-old male patient who is being seen in the intensive care unit following his mitral valve replacement surgery. The patient underwent mitral valve replacement, tissue valve, in addition to modified Wolf-Maze procedure, clipping of the appendage and 2 vessel bypass including a BINTA to RCA and SVG to OM1, and the patient is currently intubated on a mechanical ventilator in the intensive care unit. Chest x-ray shows increased vascular congestion. Orotracheal tube is in a good location. The patient has a right IJ [place]Noman catheter in place. The patient also has a mediastinal and the left pleural chest tube. The blood gases showed a pH of 7.26 with a pCO2 of 60 and pO2 139. Based on this, I put the patient on avoidance cycle mode assist control at a rate of 20, tidal volume of 550, FiO2 is down to 60% and a PEEP of 20. Follow- up blood gases are still pending for now. Hemodynamically the patient is on no pressors. The patient's mean arterial pressures around 60 to and the patient be given IV albumin. Maintenance fluid is normal saline today to 50 mL an hour. Cardiac index is at 2.6. Pulmonary artery pressure nonelevated. Upper from the chest tube both mediastinal and pleural is a total of 130 mL since his arrival from the operating room. He is producing adequate amount of urine output. He is currently off sedation. He was given a dose of fentanyl 50 g for increased chest wall pain. His cardiac rhythm is paced at the rate of 85. Underlying cardiac rhythm is a block third-degree. On 08/16/2018 patient seen in follow-up in the intensive care unit, patient has been extubated, currently on 2 L per nasal cannula his pulse ox is 96%, afebrile , hemodynamically stable. Currently in sinus rhythm, echo with backup rate. Patient is sitting up in the chair, in no acute distress, lung sounds are clear diminished at the bases, he is working on his incentive spirometer, his ISS effort is 1500 today. PA pressures 39/19, cardiac output and index are 9.9 and 4.1 respectively. Right and mediastinal chest tube output has been 605 ML in the last 24 hours. Santiago catheter is in place, patient is nonoliguric. Her and IV infusions include LR at a rate of 50 ML per hour, and insulin is at 6 units per minute. Chest x-ray has been reviewed and showed stable scattered infiltrates, likely atelectasis. Her pain is reasonably controlled. Today's blood work showed WBC of 12.7, hemoglobin of 10.0, sodium 140 potassium is 4.9, chloride is 107, BUN is 22, creatinine 0.7. The patient was seen again today 08/17/2018 in follow-up in the intensive care unit. He is currently sitting up in a chair at the bedside. He is awake and alert in no acute distress. He denies any worsening shortness of breath, cough or congestion. His pain is well controlled. He is working well with the incentive spirometer. He is maintaining good O2 saturations in the upper 90s on 3 L/m per nasal cannula. His x-ray reveals cardiomegaly with bilateral platelike atelectasis and small effusion. Mediastinal/right pleural chest tube remains in place. He's been afebrile. Hemodynamically stable. White count 11.8. Hemoglobin 8.9. Creatinine 0.78. Remains on lactated Ringer's at 50 MLS per hour. Insulin drip at 4.5 units per hour. Objective - Vital Signs Vital signs: Vital Signs Temp 97.7 F 08/17/18 08:00 Pulse 76 08/17/18 10:00 Resp 12 08/17/18 10:00 BP 108/64 08/17/18 10:00 Pulse Ox 95 08/17/18 10:00 Intake & Output 08/16/18 08/17/18 08/17/18 18:59 06:59 18:59 Intake Total 1165.741 930.493 240.25 Output Total 1625 605 255 Balance -459.259 325.493 -14.75 Weight 123 kg 127.9 kg Intake: IV 918.5 572 215 ACETAMINOPHEN IV (For NPO 100 ) 1,000 mg In Empty Bag 1 bag @ 400 mls/hr IVPB Q6HR [facility] Rx#:[id number] CO/CI 30 Lactated Ringers 1,000 ml 600 500 200 @ 20 mls/hr IV .Q24H [facility] Rx#:[id number] Magnesium Sulfate-D5w Pmx 100 1 gm In Dextrose/Water 1 100ml.bag @ 100 mls/hr IVPB Q1H [facility] Rx#: [id number] Nitroglycerin-D5w Pmx 50 1.5 mg In Dextrose/Water 1 250ml.bag @ 5 MCG/MIN 1.5 mls/hr IV .Q24H [facility] Rx#: [id number] art,cvp,pa line 87 72 15 Intake, IV Titration 77.241 38.493 25.25 Amount Insulin Regular 100 unit 57.241 38.493 25.25 In Sodium Chloride 0.9% 100 ml @ Per Protocol IV .Q0M [facility] Rx#:[id number] ceFAZolin 2,000 mg In 20 Sodium Chloride 0.9% 30 ml @ Per Protocol IVPB ONCE ONE Rx#:[id number] Oral 170 320 Output: Chest Tube Drainage 430 270 90 Chest Tube Right Pleural/ 430 270 90 Mediastinal Urine 1195 335 165 Other: Voiding Method Indwelling Catheter Indwelling Catheter ABP, PAP, CO, CI - Last Documented Arterial Blood Pressure 137/135 Pulmonary Artery Pressure 40/15 Cardiac Output 9.9 Cardiac Index 4.1 - Exam Gen. appearance: Alert, oriented. up in a chair at the bedside. No acute distress. 3 L/m per nasal cannula. Head exam was generally normal. There was no scleral icterus or corneal arcus. Mucous membranes were moist. Neck was supple and without jugular venous distension, thyromegaly, or carotid bruits. Carotids were easily palpable bilaterally. There was no adenopathy. The patient has a right IJ [place]Noman catheter in place. Lungs sounds are diminished bilaterally. Breath sounds are equal and symmetrical. No wheezes. No rhonchi. Sternum stable clean and intact. The patient has a chest tube in the right pleura. Cardiac exam revealed the PMI to be normally situated and sized. The rhythm was regular and no extrasystoles were noted during several minutes of auscultation. The first and second heart sounds were normal and physiologic splitting of the second heart sound was noted. There were no murmurs, rubs, clicks, or gallops. The patient rhythm is paced at the rate of 85. Abdominal exam revealed normal bowel sounds. The abdomen was soft, non-tender, and without masses, organomegaly, or appreciable enlargement of the abdominal aorta. Examination of the extremities revealed easily palpable radial, femoral and pedal pulses. There was no cyanosis, clubbing or edema. Examination of the skin revealed no evidence of significant rashes, suspicious appearing nevi or other concerning lesions. Neurologically arousable yet still sedated. Pupils are equal and reactive to light. - Labs CBC & Chem 7: 08/17/18 05:40 08/17/18 05:40 Labs: Abnormal Lab Results - Last 24 Hours (Table) 08/16/18 08/16/18 08/16/18 Range/Units 10:14 11:20 12:17 WBC (3.8-10.6) k/uL RBC (4.30-5.90) m/uL Hgb (13.0-17.5) gm/dL Hct (39.0-53.0) % Plt Count (150-450) k/uL Neutrophils # (1.3-7.7) k/uL Lymphocytes # (1.0-4.8) k/uL BUN (9-20) mg/dL Glucose (74-99) mg/dL POC Glucose (mg/dL) 157 H 134 H 127 H (75-99) mg/dL AST (17-59) U/L Total Protein (6.3-8.2) g/dL Albumin (3.5-5.0) g/dL 08/16/18 08/16/18 08/16/18 Range/Units 13:18 14:12 16:12 WBC (3.8-10.6) k/uL RBC (4.30-5.90) m/uL Hgb (13.0-17.5) gm/dL Hct (39.0-53.0) % Plt Count (150-450) k/uL Neutrophils # (1.3-7.7) k/uL Lymphocytes # (1.0-4.8) k/uL BUN (9-20) mg/dL Glucose (74-99) mg/dL POC Glucose (mg/dL) 125 H 130 H 115 H (75-99) mg/dL AST (17-59) U/L Total Protein (6.3-8.2) g/dL Albumin (3.5-5.0) g/dL 08/16/18 08/16/18 08/16/18 Range/Units 18:18 19:23 20:11 WBC (3.8-10.6) k/uL RBC (4.30-5.90) m/uL Hgb (13.0-17.5) gm/dL Hct (39.0-53.0) % Plt Count (150-450) k/uL Neutrophils # (1.3-7.7) k/uL Lymphocytes # (1.0-4.8) k/uL BUN (9-20) mg/dL Glucose (74-99) mg/dL POC Glucose (mg/dL) 185 H 173 H 143 H (75-99) mg/dL AST (17-59) U/L Total Protein (6.3-8.2) g/dL Albumin (3.5-5.0) g/dL 08/16/18 08/16/18 08/16/18 Range/Units 21:05 22:02 23:07 WBC (3.8-10.6) k/uL RBC (4.30-5.90) m/uL Hgb (13.0-17.5) gm/dL Hct (39.0-53.0) % Plt Count (150-450) k/uL Neutrophils # (1.3-7.7) k/uL Lymphocytes # (1.0-4.8) k/uL BUN (9-20) mg/dL Glucose (74-99) mg/dL POC Glucose (mg/dL) 128 H 120 H 108 H (75-99) mg/dL AST (17-59) U/L Total Protein (6.3-8.2) g/dL Albumin (3.5-5.0) g/dL 08/17/18 08/17/18 08/17/18 Range/Units 00:14 01:19 02:16 WBC (3.8-10.6) k/uL RBC (4.30-5.90) m/uL Hgb (13.0-17.5) gm/dL Hct (39.0-53.0) % Plt Count (150-450) k/uL Neutrophils # (1.3-7.7) k/uL Lymphocytes # (1.0-4.8) k/uL BUN (9-20) mg/dL Glucose (74-99) mg/dL POC Glucose (mg/dL) 128 H 130 H 136 H (75-99) mg/dL AST (17-59) U/L Total Protein (6.3-8.2) g/dL Albumin (3.5-5.0) g/dL 08/17/18 08/17/18 08/17/18 Range/Units 03:12 04:42 05:07 WBC (3.8-10.6) k/uL RBC (4.30-5.90) m/uL Hgb (13.0-17.5) gm/dL Hct (39.0-53.0) % Plt Count (150-450) k/uL Neutrophils # (1.3-7.7) k/uL Lymphocytes # (1.0-4.8) k/uL BUN (9-20) mg/dL Glucose (74-99) mg/dL POC Glucose (mg/dL) 120 H 155 H 141 H (75-99) mg/dL AST (17-59) U/L Total Protein (6.3-8.2) g/dL Albumin (3.5-5.0) g/dL 08/17/18 08/17/18 08/17/18 Range/Units 05:40 05:40 06:16 WBC 11.8 H (3.8-10.6) k/uL RBC 3.04 L (4.30-5.90) m/uL Hgb 8.9 L (13.0-17.5) gm/dL Hct 28.0 L (39.0-53.0) % Plt Count 139 L (150-450) k/uL Neutrophils # 9.6 H (1.3-7.7) k/uL Lymphocytes # 0.9 L (1.0-4.8) k/uL BUN 30 H (9-20) mg/dL Glucose 119 H (74-99) mg/dL POC Glucose (mg/dL) 135 H (75-99) mg/dL AST 113 H (17-59) U/L Total Protein 5.4 L (6.3-8.2) g/dL Albumin 3.1 L (3.5-5.0) g/dL 08/17/18 08/17/18 08/17/18 Range/Units 07:02 08:12 09:02 WBC (3.8-10.6) k/uL RBC (4.30-5.90) m/uL Hgb (13.0-17.5) gm/dL Hct (39.0-53.0) % Plt Count (150-450) k/uL Neutrophils # (1.3-7.7) k/uL Lymphocytes # (1.0-4.8) k/uL BUN (9-20) mg/dL Glucose (74-99) mg/dL POC Glucose (mg/dL) 133 H 140 H 135 H (75-99) mg/dL AST (17-59) U/L Total Protein (6.3-8.2) g/dL Albumin (3.5-5.0) g/dL 08/17/18 Range/Units 10:10 WBC (3.8-10.6) k/uL RBC (4.30-5.90) m/uL Hgb (13.0-17.5) gm/dL Hct (39.0-53.0) % Plt Count (150-450) k/uL Neutrophils # (1.3-7.7) k/uL Lymphocytes # (1.0-4.8) k/uL BUN (9-20) mg/dL Glucose (74-99) mg/dL POC Glucose (mg/dL) 142 H (75-99) mg/dL AST (17-59) U/L Total Protein (6.3-8.2) g/dL Albumin (3.5-5.0) g/dL Assessment and Plan Assessment: Impression: 1 mitral valve replacement, mechanical valve, in addition to 2 vessel bypass surgery and clipping of the atrial appendage. 2 post thoracotomy, successfully extubated and currently on 3 L/m per nasal cannula. 3 known history of coronary artery disease with previous stenting of RCA 4 history of severe mitral regurgitation with the current hospital physician Jose cohen and pulmonary edema 5 history of chronic atrial fibrillation, current rhythm is paced at the rate of 85 and underlying postop cardiac rhythm is third-degree AV block 6 history of left atrial appendage clot 7 history of sleep apnea combination of obstructive and central he was being treated with CPAP at a pressure of 9 cm of water 8 hypertension 9 diverticular disease 10 Osteoarthritis Plan: The patient was seen and evaluated by Dr. Garcia. Chest x-ray and labs were reviewed. We'll continue with his current treatment plan. Increase his activity as tolerated. Continues to work well with the incentive spirometer. Continue insulin drip for blood glucose control. We will continue to follow and make further recommendations based on his clinical status. I, the cosigning physician, performed a history & physical examination of the patient. Lungs sounds crackles in the bilateral posterior bases. Maintaining good O2 saturations in the 90s on 3 L/m per nasal cannula. I discussed the assessment and plan of care with my nurse practitioner, Anne Mata. I attest to the above note as dictated by her.
[2018-08-17] MEDS: INSULIN REGULAR 100 UNIT in SODIUM CHLORIDE 0.9% 100 ML IV SCH (10:59)
--- NOTE | 2018-08-17 11:01 | CONS ---
CONSULTATION Mr. Hare underwent mitral valve replacement with a right internal mammary artery graft to RCA and vein graft to the circumflex. He remains in sinus rhythm with a very long first-degree AV block, hemodynamically stable, recovering nicely. Blood pressure is 110/70. Pulse rate is about 70 per minute. S1, S2 heard normally. Short systolic murmur is audible. Prosthetic valve click is very soft and subtle. He has a mitral valve replacement with a mechanical valve. Lungs revealed diminished air entry over bases. Abdomen and lower extremity exam unchanged. Plan is to continue incentive spirometry, pulmonary toilet, and continue current medical regimen. I would hold off the beta blockers at least for another 24 to 48 hours and see how his [place] interval recovers. MMODL / IJN: [id number] /
[2018-08-17] MEDS ORDERED: FUROSEMIDE 10 MG/ML 4 ML VIAL IV STA (11:11)
[2018-08-17] MEDS: ACETAMINOPHEN IV (For NPO) 1,000 MG in EMPTY BAG 1 BAG IVPB SCH ×2 (11:15→18:00)
[2018-08-17 11:18] LABS: Glucose,Whole Blood 115 mg/dL (75-99)
[2018-08-17 12:29] LABS: Glucose,Whole Blood 112 mg/dL (75-99)
[2018-08-17 13:26] LABS: Glucose,Whole Blood 125 mg/dL (75-99)
[2018-08-17 14:28] LABS: Glucose,Whole Blood 139 mg/dL (75-99)
[2018-08-17 15:40] LABS: Glucose,Whole Blood 119 mg/dL (75-99)
[2018-08-17 16:20] LABS: Glucose,Whole Blood 117 mg/dL (75-99)
--- NOTE | 2018-08-17 16:25 | P.PN ---
Subjective 52-year-old gentleman had a mechanical mitral valve replacement and being started on Coumadin although patient is having bleeding from the cordis site in the neck. Patient had some increased pulmonary congestion for which patient received Lasix today. Patient is being started on Coumadin patient is on aspirin and Plavix patient has a clipping of atrial fibrillation and age with the two-vessel bypass surgery. Patient's mediastinal chest tube is out and patient has right-sided chest tube at this time. Is on IV ringer lactated Ringer's which was discontinued as he has some pulmonary edema. Constitutional: Denied any fatigue denied any fever. Cardio vascular: denied any chest pain, palpitations Gastrointestinal denied any nausea vomiting Pulmonary: Denied any shortness of breath cough Neurologic denied any new focal deficits All inpatient medications were reviewed and appropriate changes in these medications as dictated in the interval history and assessment and plan. Objective - Vital Signs Vital signs: Vital Signs Temp 97.6 F 08/17/18 16:00 Pulse 61 08/17/18 16:16 Resp 15 08/17/18 16:00 BP 100/51 08/17/18 16:00 Pulse Ox 94 L 08/17/18 16:00 Intake & Output 08/16/18 08/17/18 08/17/18 18:59 06:59 18:59 Intake Total 1165.741 930.493 464.429 Output Total 1625 605 830 Balance -459.259 325.493 -365.571 Weight 123 kg 127.9 kg Intake: IV 918.5 572 421 ACETAMINOPHEN IV (For NPO 100 100 ) 1,000 mg In Empty Bag 1 bag @ 400 mls/hr IVPB Q6HR SAMANTHA Rx#:[id number] CO/CI 30 Lactated Ringers 1,000 ml 600 500 300 @ 20 mls/hr IV .Q24H SAMANTHA Rx#:[id number] Magnesium Sulfate-D5w Pmx 100 1 gm In Dextrose/Water 1 100ml.bag @ 100 mls/hr IVPB Q1H SAMANTHA Rx#: [id number] Nitroglycerin-D5w Pmx 50 1.5 mg In Dextrose/Water 1 250ml.bag @ 5 MCG/MIN 1.5 mls/hr IV .Q24H SAMANTHA Rx#: [id number] art,cvp,pa line 87 72 21 Intake, IV Titration 77.241 38.493 43.429 Amount Insulin Regular 100 unit 57.241 38.493 43.429 In Sodium Chloride 0.9% 100 ml @ Per Protocol IV .Q0M COUNTS INCLUDE 234 BEDS AT THE [facility] Rx#:[id number] ceFAZolin 2,000 mg In 20 Sodium Chloride 0.9% 30 ml @ Per Protocol IVPB ONCE ONE Rx#:[id number] Oral 170 320 Output: Chest Tube Drainage 430 270 285 Chest Tube Right Pleural/ 430 270 280 Mediastinal Pleural Catheter Right 5 Urine 1195 335 545 Other: Voiding Method Indwelling Catheter Indwelling Catheter Indwelling Catheter ABP, PAP, CO, CI - Last Documented Arterial Blood Pressure 137/135 Pulmonary Artery Pressure 40/15 Cardiac Output 9.9 Cardiac Index 4.1 - Exam PHYSICAL EXAMINATION: GENERAL: The patient is alert and oriented x3, not in any acute distress. Obese on fluids of passing cannula oxygen HEENT: Pupils are round and equally reacting to light. EOMI. No scleral icterus. No conjunctival pallor. Normocephalic, atraumatic. No pharyngeal erythema. No thyromegaly. CARDIOVASCULAR: S1 and S2 present. No murmurs, rubs, or gallops. PULMONARY: Chest is clear to auscultation, no wheezing or crackles. Surgical site area appears to be clean and bleeding from the neck from previous cordis site ABDOMEN: Soft, nontender, nondistended, normoactive bowel sounds. No palpable organomegaly. MUSCULOSKELETAL: No joint swelling or deformity. EXTREMITIES: No cyanosis, clubbing, or pedal edema. NEUROLOGICAL: Gross neurological examination did not reveal any focal deficits. SKIN: No rashes. - Labs CBC & Chem 7: 08/17/18 05:40 08/17/18 05:40 Labs: Abnormal Lab Results - Last 24 Hours (Table) 08/16/18 08/16/18 08/16/18 Range/Units 16:12 18:18 19:23 WBC (3.8-10.6) k/uL RBC (4.30-5.90) m/uL Hgb (13.0-17.5) gm/dL Hct (39.0-53.0) % Plt Count (150-450) k/uL Neutrophils # (1.3-7.7) k/uL Lymphocytes # (1.0-4.8) k/uL BUN (9-20) mg/dL Glucose (74-99) mg/dL POC Glucose (mg/dL) 115 H 185 H 173 H (75-99) mg/dL AST (17-59) U/L Total Protein (6.3-8.2) g/dL Albumin (3.5-5.0) g/dL 08/16/18 08/16/18 08/16/18 Range/Units 20:11 21:05 22:02 WBC (3.8-10.6) k/uL RBC (4.30-5.90) m/uL Hgb (13.0-17.5) gm/dL Hct (39.0-53.0) % Plt Count (150-450) k/uL Neutrophils # (1.3-7.7) k/uL Lymphocytes # (1.0-4.8) k/uL BUN (9-20) mg/dL Glucose (74-99) mg/dL POC Glucose (mg/dL) 143 H 128 H 120 H (75-99) mg/dL AST (17-59) U/L Total Protein (6.3-8.2) g/dL Albumin (3.5-5.0) g/dL 08/16/18 08/17/18 08/17/18 Range/Units 23:07 00:14 01:19 WBC (3.8-10.6) k/uL RBC (4.30-5.90) m/uL Hgb (13.0-17.5) gm/dL Hct (39.0-53.0) % Plt Count (150-450) k/uL Neutrophils # (1.3-7.7) k/uL Lymphocytes # (1.0-4.8) k/uL BUN (9-20) mg/dL Glucose (74-99) mg/dL POC Glucose (mg/dL) 108 H 128 H 130 H (75-99) mg/dL AST (17-59) U/L Total Protein (6.3-8.2) g/dL Albumin (3.5-5.0) g/dL 08/17/18 08/17/18 08/17/18 Range/Units 02:16 03:12 04:42 WBC (3.8-10.6) k/uL RBC (4.30-5.90) m/uL Hgb (13.0-17.5) gm/dL Hct (39.0-53.0) % Plt Count (150-450) k/uL Neutrophils # (1.3-7.7) k/uL Lymphocytes # (1.0-4.8) k/uL BUN (9-20) mg/dL Glucose (74-99) mg/dL POC Glucose (mg/dL) 136 H 120 H 155 H (75-99) mg/dL AST (17-59) U/L Total Protein (6.3-8.2) g/dL Albumin (3.5-5.0) g/dL 08/17/18 08/17/18 08/17/18 Range/Units 05:07 05:40 05:40 WBC 11.8 H (3.8-10.6) k/uL RBC 3.04 L (4.30-5.90) m/uL Hgb 8.9 L (13.0-17.5) gm/dL Hct 28.0 L (39.0-53.0) % Plt Count 139 L (150-450) k/uL Neutrophils # 9.6 H (1.3-7.7) k/uL Lymphocytes # 0.9 L (1.0-4.8) k/uL BUN 30 H (9-20) mg/dL Glucose 119 H (74-99) mg/dL POC Glucose (mg/dL) 141 H (75-99) mg/dL AST 113 H (17-59) U/L Total Protein 5.4 L (6.3-8.2) g/dL Albumin 3.1 L (3.5-5.0) g/dL 08/17/18 08/17/18 08/17/18 Range/Units 06:16 07:02 08:12 WBC (3.8-10.6) k/uL RBC (4.30-5.90) m/uL Hgb (13.0-17.5) gm/dL Hct (39.0-53.0) % Plt Count (150-450) k/uL Neutrophils # (1.3-7.7) k/uL Lymphocytes # (1.0-4.8) k/uL BUN (9-20) mg/dL Glucose (74-99) mg/dL POC Glucose (mg/dL) 135 H 133 H 140 H (75-99) mg/dL AST (17-59) U/L Total Protein (6.3-8.2) g/dL Albumin (3.5-5.0) g/dL 08/17/18 08/17/18 08/17/18 Range/Units 09:02 10:10 11:06 WBC (3.8-10.6) k/uL RBC (4.30-5.90) m/uL Hgb (13.0-17.5) gm/dL Hct (39.0-53.0) % Plt Count (150-450) k/uL Neutrophils # (1.3-7.7) k/uL Lymphocytes # (1.0-4.8) k/uL BUN (9-20) mg/dL Glucose (74-99) mg/dL POC Glucose (mg/dL) 135 H 142 H 115 H (75-99) mg/dL AST (17-59) U/L Total Protein (6.3-8.2) g/dL Albumin (3.5-5.0) g/dL 08/17/18 08/17/18 08/17/18 Range/Units 12:17 13:15 14:17 WBC (3.8-10.6) k/uL RBC (4.30-5.90) m/uL Hgb (13.0-17.5) gm/dL Hct (39.0-53.0) % Plt Count (150-450) k/uL Neutrophils # (1.3-7.7) k/uL Lymphocytes # (1.0-4.8) k/uL BUN (9-20) mg/dL Glucose (74-99) mg/dL POC Glucose (mg/dL) 112 H 125 H 139 H (75-99) mg/dL AST (17-59) U/L Total Protein (6.3-8.2) g/dL Albumin (3.5-5.0) g/dL 08/17/18 08/17/18 Range/Units 15:29 16:08 WBC (3.8-10.6) k/uL RBC (4.30-5.90) m/uL Hgb (13.0-17.5) gm/dL Hct (39.0-53.0) % Plt Count (150-450) k/uL Neutrophils # (1.3-7.7) k/uL Lymphocytes # (1.0-4.8) k/uL BUN (9-20) mg/dL Glucose (74-99) mg/dL POC Glucose (mg/dL) 119 H 117 H (75-99) mg/dL AST (17-59) U/L Total Protein (6.3-8.2) g/dL Albumin (3.5-5.0) g/dL Assessment and Plan Plan: -Mitral valve replacement mechanical mitral valve with 2 vessel bypass in atrial fibrillation and is clipping sinus rhythm -Postoperative respiratory failure brief was extubated presently on 3 L of oxygen receiving Lasix for mild pulmonary edema -Coronary artery disease with stenting in the past now 2 vessel bypass -Chronic A. fib presently sinus rhythm after clipping of atrial fibrillation and age -Wasting sleep apnea -Hypertension -Elevated blood sugars no history of diabetes mellitus we'll obtain hemoglobin A1c patient is presently on IV insulin -Osteoarthritis
[2018-08-17 17:23] LABS: Glucose,Whole Blood 118 mg/dL (75-99)
[2018-08-17] MEDS ORDERED: WARFARIN 7.5 MG TAB PO ONE (18:00)
[2018-08-17 18:21] LABS: Glucose,Whole Blood 136 mg/dL (75-99)
[2018-08-17] MEDS: ONDANSETRON 4 MG/2 ML VIAL IVP PRN (20:30)
[2018-08-17] MEDS: SENNOSIDES-DOCUSATE SODIUM 1 EACH TAB PO SCH (20:30)
[2018-08-17 21:05] LABS: Glucose,Whole Blood 108 mg/dL (75-99)
[2018-08-17 22:21] LABS: Glucose,Whole Blood 132 mg/dL (75-99)
[2018-08-17 23:17] LABS: Glucose,Whole Blood 131 mg/dL (75-99)
[2018-08-18] MEDS ORDERED: HYDROcodone/APAP 5-325MG 1 EACH TAB PO PRN (00:30)
[2018-08-18] MEDS: ACETAMINOPHEN IV (For NPO) 1,000 MG in EMPTY BAG 1 BAG IVPB SCH ×2 (01:08→06:21)
[2018-08-18] MEDS: KETOROLAC 30 MG/ML 1 ML VIAL IVP SCH ×4 (01:20→17:25)
[2018-08-18] MEDS: HEPARIN SODIUM,PORCINE 5,000 UNIT/ML 1 ML VIAL SQ SCH ×2 (01:21→08:49)
[2018-08-18 01:33] LABS: Glucose,Whole Blood 115 mg/dL (75-99)
[2018-08-18 03:05] LABS: Glucose,Whole Blood 121 mg/dL (75-99)
[2018-08-18 04:55] LABS: Glucose,Whole Blood 121 mg/dL (75-99)
[2018-08-18 05:56] LABS: INR 0.9 (<1.2); Prothrombin Time 9.6 sec (9.0-12.0)
[2018-08-18 06:06] LABS: Basophils % (A) 0 %; Eosinophils # (A) 0.3 k/uL (0-0.7); Eosinophils % (A) 3 %; HCT 25.2 % (39.0-53.0); HGB 8.1 gm/dL (13.0-17.5); Lymphocytes # (A) 1.5 k/uL (1.0-4.8); Lymphocytes % (A) 14 %; MCH 29.4 pg (25.0-35.0); MCHC 32.2 g/dL (31.0-37.0); MCV 91.3 fL (80.0-100.0); Mean Platelet Volume 8.3; Monocytes # (A) 0.6 k/uL (0-1.0); Monocytes % (A) 6 %; Neutrophils # (A) 7.9 k/uL (1.3-7.7); Neutrophils % (A) 74 %; Platelet Count 144 k/uL (150-450); RBC 2.75 m/uL (4.30-5.90); WBC 10.7 k/uL (3.8-10.6)
[2018-08-18 06:09] LABS: ALT 41 U/L (21-72); AST 65 U/L (17-59); Albumin 2.9 g/dL (3.5-5.0); Alkaline Phosphatase 44 U/L (38-126); Anion Gap 7 mmol/L; Blood Urea Nitrogen 37 mg/dL (9-20); Carbon Dioxide 29 mmol/L (22-30); Chloride 100 mmol/L (98-107); Glucose 104 mg/dL (74-99); Magnesium 2.4 mg/dL (1.6-2.3); Potassium 4.9 mmol/L (3.5-5.1); Sodium 136 mmol/L (137-145); Total Bilirubin 1.4 mg/dL (0.2-1.3); Total Protein 5.3 g/dL (6.3-8.2)
--- NOTE | 2018-08-18 07:09 | XR ---
EXAMINATION TYPE: XR chest 1V portable DATE OF EXAM: 08/18/2018 HISTORY: post cardiac surgery. REFERENCE: Previous study dated 08/17/2018. FINDINGS: There has been a midline sternotomy. The patient's right internal jugular sheath has been r emoved. A right pleural drain remains in place. The heart is enlarged. There is bibasilar airspace disease, worse on the left than the right. There a re small, bilateral effusions. Vascular congestion has improved. IMPRESSION: CONTINUING POSTSURGICAL CHANGE.
[2018-08-18] MEDS: IPRATROPIUM-ALBUTEROL 3 ML NEB INHALATION SCH ×4 (07:22→19:07)
[2018-08-18 08:46] LABS: Glucose,Whole Blood 205 mg/dL (75-99)
[2018-08-18] MEDS: PANTOPRAZOLE 40 MG TABLET PO SCH (08:49)
[2018-08-18] MEDS: ATORVASTATIN 40 MG TAB PO SCH (08:49)
[2018-08-18] MEDS: CLOPIDOGREL 75 MG TAB PO SCH (08:49)
[2018-08-18] MEDS: ASPIRIN 81 MG PO SCH (08:49)
[2018-08-18] MEDS: CITALOPRAM HYDROBROMIDE 10 MG TAB PO SCH (08:54)
[2018-08-18] MEDS: MUPIROCIN 2% OINT 22 GM TUBE NASAL SCH ×2 (09:01→20:22)
--- NOTE | 2018-08-18 10:05 | P.PN ---
Subjective Progress Note Date: 08/18/18 Principal diagnosis: Mitral regurgitation. Mitral stenosis. Paroxysmal atrial fibrillation. Coronary artery disease. History of cardioversions, hypertension, hyperlipidemia, obstructive sleep apnea, previous tobacco dependence, mild COPD with preoperative FEV1 68% of predicted, daily EtOH use, GERD, obesity, and family history of premature coronary artery disease with brother diagnosed at 34 and father diagnosed at 42. POD #3 mitral valve replacement with a #31/33 On-X mechanical mitral valve. Coronary bypass grafting 2 with a right internal mammary artery to the right coronary artery, reverse saphenous vein graft off the aorta to the second obtuse marginal artery. Endovascular vein harvest of the left greater saphenous vein. Clip ligation of the left atrial appendage with a #40 mm AtriClip. Complete left-sided maze procedure using radiofrequency and cryoablation. Intraoperative transesophageal echocardiogram. Postoperative acute blood loss anemia, expected post surgical condition secondary to hemodilution and cardiopulmonary bypass pump. The patient is currently ambulating in the hallway in no acute distress. Does complain of some postoperative pain which he states is controlled on current medication regimen, denies shortness of breath, complains of sore throat. Currently hemodynamically stable on no inotropes or pressors. Remains in sinus rhythm with first-degree AV block. No new complaints. His swallowing is much better. His mediastinal chest tube, epicardial pacemaker wires, Cordis, and Santiago catheter were discontinued yesterday. Objective - Vital Signs Vital signs: Vital Signs Temp 98.2 F 08/18/18 00:00 Pulse 81 08/18/18 08:00 Resp 15 08/18/18 08:00 BP 118/65 08/18/18 08:00 Pulse Ox 96 08/18/18 08:00 Intake & Output 08/17/18 08/18/18 08/18/18 18:59 06:59 18:59 Intake Total 539.997 691.023 19.998 Output Total 1030 255 Balance -490.003 436.023 19.998 Weight 123 kg Intake: IV 481 200 ACETAMINOPHEN IV (For NPO 100 ) 1,000 mg In Empty Bag 1 bag @ 400 mls/hr IVPB Q6HR [facility]A Rx#:[id number] Lactated Ringers 1,000 ml 360 200 @ 20 mls/hr IV .Q24H [facility]AN[facility]A Rx#:[id number] art,cvp,pa line 21 Intake, IV Titration 58.997 131.023 19.998 Amount ACETAMINOPHEN IV (For NPO 100 ) 1,000 mg In Empty Bag 1 bag @ 400 mls/hr IVPB Q6HR [facility]ANTHA Rx#:[id number] Insulin Regular 100 unit 58.997 31.023 19.998 In Sodium Chloride 0.9% 100 ml @ Per Protocol IV .Q0M [facility]ANTHA Rx#:[id number] Oral 360 Output: Chest Tube Drainage 285 85 Chest Tube Right Pleural/ 280 50 Mediastinal Pleural Catheter Right 5 35 Urine 745 170 Other: Voiding Method Indwelling Catheter Indwelling Catheter ABP, PAP, CO, CI - Last Documented Arterial Blood Pressure 137/135 Pulmonary Artery Pressure 40/15 Cardiac Output 9.9 Cardiac Index 4.1 - Constitutional General appearance: Present: cooperative, no acute distress - Respiratory Details: Lungs sounds diminished bilaterally. Respirations even, nonlabored. Currently on 2 L nasal cannula with oxygen saturation 95%, oxygen saturation was 91% on room air. Able to achieve 1500 mL on his incentive spirometry. Strong cough. Right pleural chest tube to continuous wall suction, 5 mL serosanguineous drainage overnight, 300 mL in the last 24 hours, no air leak present. - Cardiovascular Details: S1, S2 present. Positive valvular click. Regular rate and rhythm, sinus rhythm with first-degree AV block on telemetry. A/V epicardial pacemaker wires present, connected to generator, VVI mode with backup rate 50 beats per minute. Sternum stable. Palpable peripheral pulses bilaterally. No edema present. No calf pain or tenderness noted. Heart hugger in place with patient demonstrating appropriate use. Antiembolism stockings, SCDs present. - Gastrointestinal Gastrointestinal Comment(s): Abdomen soft, nontender, nondistended. Active bowel sounds present 4 quadrants. Tolerating pured diet with thickened liquids. Positive flatus, negative bowel movement. - Genitourinary Genitourinary Comment(s): Santiago discontinued yesterday, patient's voided clear, yellow urine. - Integumentary Integumentary Comment(s): Skin is warm and dry with evidence of good perfusion. Anterior chest incision well approximated and covered with dry intact dressing. Left lower extremity EVH site well approximated. - Neurologic Neurologic: Present: CNII-XII intact - Musculoskeletal Musculoskeletal: Present: gait normal, strength equal bilaterally - Psychiatric Psychiatric: Present: A&O x's 3, appropriate affect, intact judgment & insight - Allied health notes Allied health notes reviewed: nursing - Labs CBC & Chem 7: 08/18/18 05:13 08/18/18 05:13 Labs: Abnormal Lab Results - Last 24 Hours (Table) 08/17/18 08/17/18 08/17/18 Range/Units 10:10 11:06 12:17 WBC (3.8-10.6) k/uL RBC (4.30-5.90) m/uL Hgb (13.0-17.5) gm/dL Hct (39.0-53.0) % Plt Count (150-450) k/uL Neutrophils # (1.3-7.7) k/uL Sodium (137-145) mmol/L BUN (9-20) mg/dL Glucose (74-99) mg/dL POC Glucose (mg/dL) 142 H 115 H 112 H (75-99) mg/dL Magnesium (1.6-2.3) mg/dL Total Bilirubin (0.2-1.3) mg/dL AST (17-59) U/L Total Protein (6.3-8.2) g/dL Albumin (3.5-5.0) g/dL 08/17/18 08/17/18 08/17/18 Range/Units 13:15 14:17 15:29 WBC (3.8-10.6) k/uL RBC (4.30-5.90) m/uL Hgb (13.0-17.5) gm/dL Hct (39.0-53.0) % Plt Count (150-450) k/uL Neutrophils # (1.3-7.7) k/uL Sodium (137-145) mmol/L BUN (9-20) mg/dL Glucose (74-99) mg/dL POC Glucose (mg/dL) 125 H 139 H 119 H (75-99) mg/dL Magnesium (1.6-2.3) mg/dL Total Bilirubin (0.2-1.3) mg/dL AST (17-59) U/L Total Protein (6.3-8.2) g/dL Albumin (3.5-5.0) g/dL 08/17/18 08/17/1818 Range/Units 16:08 17:10 18:10 WBC (3.8-10.6) k/uL RBC (4.30-5.90) m/uL Hgb (13.0-17.5) gm/dL Hct (39.0-53.0) % Plt Count (150-450) k/uL Neutrophils # (1.3-7.7) k/uL Sodium (137-145) mmol/L BUN (9-20) mg/dL Glucose (74-99) mg/dL POC Glucose (mg/dL) 117 H 118 H 136 H (75-99) mg/dL Magnesium (1.6-2.3) mg/dL Total Bilirubin (0.2-1.3) mg/dL AST (17-59) U/L Total Protein (6.3-8.2) g/dL Albumin (3.5-5.0) g/dL 08/17/18 08/17/18 08/17/18 Range/Units 20:53 22:10 23:06 WBC (3.8-10.6) k/uL RBC (4.30-5.90) m/uL Hgb (13.0-17.5) gm/dL Hct (39.0-53.0) % Plt Count (150-450) k/uL Neutrophils # (1.3-7.7) k/uL Sodium (137-145) mmol/L BUN (9-20) mg/dL Glucose (74-99) mg/dL POC Glucose (mg/dL) 108 H 132 H 131 H (75-99) mg/dL Magnesium (1.6-2.3) mg/dL Total Bilirubin (0.2-1.3) mg/dL AST (17-59) U/L Total Protein (6.3-8.2) g/dL Albumin (3.5-5.0) g/dL 08/18/18 08/18/18 08/18/18 Range/Units 01:03 02:53 04:36 WBC (3.8-10.6) k/uL RBC (4.30-5.90) m/uL Hgb (13.0-17.5) gm/dL Hct (39.0-53.0) % Plt Count (150-450) k/uL Neutrophils # (1.3-7.7) k/uL Sodium (137-145) mmol/L BUN (9-20) mg/dL Glucose (74-99) mg/dL POC Glucose (mg/dL) 115 H 121 H 121 H (75-99) mg/dL Magnesium (1.6-2.3) mg/dL Total Bilirubin (0.2-1.3) mg/dL AST (17-59) U/L Total Protein (6.3-8.2) g/dL Albumin (3.5-5.0) g/dL 08/18/18 08/18/18 08/18/18 Range/Units 05:13 05:13 08:34 WBC 10.7 H (3.8-10.6) k/uL RBC 2.75 L (4.30-5.90) m/uL Hgb 8.1 L (13.0-17.5) gm/dL Hct 25.2 L (39.0-53.0) % Plt Count 144 L (150-450) k/uL Neutrophils # 7.9 H (1.3-7.7) k/uL Sodium 136 L (137-145) mmol/L BUN 37 H (9-20) mg/dL Glucose 104 H (74-99) mg/dL POC Glucose (mg/dL) 205 H (75-99) mg/dL Magnesium 2.4 H (1.6-2.3) mg/dL Total Bilirubin 1.4 H (0.2-1.3) mg/dL AST 65 H (17-59) U/L Total Protein 5.3 L (6.3-8.2) g/dL Albumin 2.9 L (3.5-5.0) g/dL - Imaging and Cardiology Chest x-ray: report reviewed, image reviewed Assessment and Plan (1) Mitral regurgitation Current Visit: Yes Status: Chronic Code(s): I34.0 - NONRHEUMATIC MITRAL ( VALVE) INSUFFICIENCY SNOMED Code(s): 75738728 (2) Mitral stenosis Current Visit: Yes Status: Chronic Code(s): I05.0 - RHEUMATIC MITRAL STENOSIS SNOMED Code(s): 01383782 (3) Paroxysmal atrial fibrillation Current Visit: No Status: Resolved Code(s): I48.0 - PAROXYSMAL ATRIAL FIBRILLATION SNOMED Code(s): 373660683 (4) Sleep apnea Current Visit: Yes Status: Chronic Code(s): G47.30 - SLEEP APNEA, UNSPECIFIED SNOMED Code(s): 53323018 (5) COPD (chronic obstructive pulmonary disease) Current Visit: Yes Status: Chronic Code(s): J44.9 - CHRONIC OBSTRUCTIVE PULMONARY DISEASE, UNSPECIFIED SNOMED Code(s): 74926251 (6) Status post mitral valve repair Current Visit: Yes Status: Acute Code(s): Z98.890 - OTHER SPECIFIED POSTPROCEDURAL STATES SNOMED Code(s): 353135408 (7) CAD (coronary artery disease) Current Visit: Yes Status: Chronic Code(s): I25.10 - ATHSCL HEART DISEASE OF [place] CORONARY ARTERY W/O ANG PCTRS SNOMED Code(s): 93776116 (8) Former smoker Current Visit: No Status: Resolved Code(s): Z87.891 - PERSONAL HISTORY OF NICOTINE DEPENDENCE SNOMED Code(s): 8512610 (9) Hypertension Current Visit: Yes Status: Chronic Code(s): I10 - ESSENTIAL (PRIMARY) HYPERTENSION SNOMED Code(s): 14412525 (10) Alcohol abuse Current Visit: Yes Status: Chronic Code(s): F10.10 - ALCOHOL ABUSE, UNCOMPLICATED SNOMED Code(s): 92258816 (11) GERD (gastroesophageal reflux disease) Current Visit: Yes Status: Chronic Code(s): K21.9 - GASTRO-ESOPHAGEAL REFLUX DISEASE WITHOUT ESOPHAGITIS SNOMED Code(s): 013152104 (12) Obesity (BMI 30-39.9) Current Visit: Yes Status: Chronic Code(s): E66.9 - OBESITY, UNSPECIFIED SNOMED Code(s): 505785282 (13) Family history of premature CAD Current Visit: Yes Status: Chronic Code(s): Z82.49 - FAMILY HX OF ISCHEM HEART DIS AND OTH DIS OF THE CIRC SYS SNOMED Code(s): 235076496 Plan: 1. Continue low-dose aspirin aspirin, statin, Plavix. Will add back in beta laura therapy as tolerated. 2. Will start Coumadin therapy today. Will monitor daily PT INR. Goal INR 3.0. 3. Wean O2 as tolerated. 4. Will discontinue right pleural chest tube. 5. Increase activity, ambulate as tolerated. PT/OT/cardiac rehab following. 6. Will monitor daily labs and x-rays. Electrolyte replacement per protocol. 7. Insulin per primary care service. 8. Pain control with current medication regimen. 9. GI prophylaxis with Protonix. DVT prophylaxis with subcu heparin, SCDs. 10. Bronchodilators per pulmonology. 11. Will place transfer orders for 3 cells cardiac stepdown unit. May transfer when bed available. 12. More recommendations to follow. Time with Patient: Greater than 30
[2018-08-18 10:14] LABS: Glucose,Whole Blood 127 mg/dL (75-99)
--- NOTE | 2018-08-18 11:44 | PN ---
PROGRESS NOTE HISTORY: Mr. Hare is still in sinus rhythm with a long first-degree AV block of nearly 4 milliseconds. His vital signs are stable. He is ambulating the hallways. He is feeling better. S1 and S2 heard normally. Short systolic murmur is audible. Lungs reveal improved air entry. Abdomen and lower extremity exam unchanged. Plan is to continue incentive spirometry and pulmonary toilet and wait until tomorrow to see if his p.r.n. interval improves. The patient had brief runs of atrial fibrillation as well. We will initiate anticoagulation once the chest tubes are removed. He has a mechanical mitral valve and 2 vessel bypass. MMODL / IJN: [id number] /
[2018-08-18] MEDS: FUROSEMIDE 10 MG/ML 2 ML VIAL IV ONE ×2 (11:55→11:59)
[2018-08-18 12:11] LABS: Glucose,Whole Blood 126 mg/dL (75-99)
[2018-08-18] MEDS: INSULIN ASPART 100 UNIT/ML 1 ML 10 ML VIAL SQ SCH ×3 (12:19→20:21)
[2018-08-18] MEDS ORDERED: WARFARIN 10 MG TAB PO ONE (13:00)
[2018-08-18] MEDS: HEPARIN SOD,PORK IN 0.45% NACL 25,000 UNIT in 0.45% NACL 1 500ML.BAG IV SCH (13:34)
--- NOTE | 2018-08-18 14:07 | P.PN ---
Subjective Progress Note Date: 08/18/18 This is a 53-year-old male patient who is being seen in the intensive care unit following his mitral valve replacement surgery. The patient underwent mitral valve replacement, tissue valve, in addition to modified Wolf-Maze procedure, clipping of the appendage and 2 vessel bypass including a BINTA to RCA and SVG to OM1, and the patient is currently intubated on a mechanical ventilator in the intensive care unit. Chest x-ray shows increased vascular congestion. Orotracheal tube is in a good location. The patient has a right IJ Richmond-Noman catheter in place. The patient also has a mediastinal and the left pleural chest tube. The blood gases showed a pH of 7.26 with a pCO2 of 60 and pO2 139. Based on this, I put the patient on avoidance cycle mode assist control at a rate of 20, tidal volume of 550, FiO2 is down to 60% and a PEEP of 20. Follow- up blood gases are still pending for now. Hemodynamically the patient is on no pressors. The patient's mean arterial pressures around 60 to and the patient be given IV albumin. Maintenance fluid is normal saline today to 50 mL an hour. Cardiac index is at 2.6. Pulmonary artery pressure nonelevated. Upper from the chest tube both mediastinal and pleural is a total of 130 mL since his arrival from the operating room. He is producing adequate amount of urine output. He is currently off sedation. He was given a dose of fentanyl 50 g for increased chest wall pain. His cardiac rhythm is paced at the rate of 85. Underlying cardiac rhythm is a block third-degree. On 08/16/2018 patient seen in follow-up in the intensive care unit, patient has been extubated, currently on 2 L per nasal cannula his pulse ox is 96%, afebrile , hemodynamically stable. Currently in sinus rhythm, echo with backup rate. Patient is sitting up in the chair, in no acute distress, lung sounds are clear diminished at the bases, he is working on his incentive spirometer, his ISS effort is 1500 today. PA pressures 39/19, cardiac output and index are 9.9 and 4.1 respectively. Right and mediastinal chest tube output has been 605 ML in the last 24 hours. Santiago catheter is in place, patient is nonoliguric. Her and IV infusions include LR at a rate of 50 ML per hour, and insulin is at 6 units per minute. Chest x-ray has been reviewed and showed stable scattered infiltrates, likely atelectasis. Her pain is reasonably controlled. Today's blood work showed WBC of 12.7, hemoglobin of 10.0, sodium 140 potassium is 4.9, chloride is 107, BUN is 22, creatinine 0.7. The patient was seen again today 08/17/2018 in follow-up in the intensive care unit. He is currently sitting up in a chair at the bedside. He is awake and alert in no acute distress. He denies any worsening shortness of breath, cough or congestion. His pain is well controlled. He is working well with the incentive spirometer. He is maintaining good O2 saturations in the upper 90s on 3 L/m per nasal cannula. His x-ray reveals cardiomegaly with bilateral platelike atelectasis and small effusion. Mediastinal/right pleural chest tube remains in place. He's been afebrile. Hemodynamically stable. White count 11.8. Hemoglobin 8.9. Creatinine 0.78. Remains on lactated Ringer's at 50 MLS per hour. Insulin drip at 4.5 units per hour. On 08/18/2089 seeing this patient for a follow-up. The patient has postop day # 3. He underwent mitral valve replacement. He also underwent three-vessel bypass surgery. Hemodynamically stable. He is in a sinus rhythm. Note that he also had a modified maze procedure using radiofrequency and cryoablation. The patient has no complaints. The Richmond-Noman catheter has been removed. He did encounter some bleeding from the puncture site where pressure was applied and currently hemostasis is achieved. He is cardiac rhythm is sinus with a first-degree AV block. He is swallowing. He is ambulating. The patient has chest tubes in place and the patient's right-sided chest tube has drained 5 ML' s of serosanguineous drainage over the past 8 hours and 300 over the past 24 hours without evidence of any air leak. The patient is pulling approximately 1500 mL on the incentive spirometer. Pulse ox is 95% liters of oxygen by nasal cannula. Chest x-ray shows adequate expansion of both lungs. Chest tube is in good location. No pneumothorax. Objective - Vital Signs Vital signs: Vital Signs Temp 98.2 F 08/18/18 00:00 Pulse 85 08/18/18 12:00 Resp 19 08/18/18 12:00 BP 105/63 08/18/18 12:00 Pulse Ox 95 08/18/18 12:00 Intake & Output 08/17/18 08/18/18 08/18/18 18:59 06:59 18:59 Intake Total 539.997 691.023 164.123 Output Total 1030 255 365 Balance -490.003 436.023 -200.877 Weight 123 kg Intake: IV 481 200 120 ACETAMINOPHEN IV (For NPO 100 ) 1,000 mg In Empty Bag 1 bag @ 400 mls/hr IVPB Q6HR [facility] Rx#:[id number] Lactated Ringers 1,000 ml 360 200 120 @ 20 mls/hr IV .Q24H [facility] Rx#:[id number] art,cvp,pa line 21 Intake, IV Titration 58.997 131.023 44.123 Amount ACETAMINOPHEN IV (For NPO 100 ) 1,000 mg In Empty Bag 1 bag @ 400 mls/hr IVPB Q6HR [facility] Rx#:[id number] Insulin Regular 100 unit 58.997 31.023 44.123 In Sodium Chloride 0.9% 100 ml @ Per Protocol IV .Q0M [facility] Rx#:[id number] Oral 360 Output: Chest Tube Drainage 285 85 90 Chest Tube Right Pleural/ 280 50 Mediastinal Pleural Catheter Right 5 35 90 Urine 745 170 275 Other: Voiding Method Indwelling Catheter Indwelling Catheter Urinal ABP, PAP, CO, CI - Last Documented Arterial Blood Pressure 137/135 Pulmonary Artery Pressure 40/15 Cardiac Output 9.9 Cardiac Index 4.1 - Exam - Exam Gen. appearance: Alert, oriented. up in a chair at the bedside. No acute distress. 3 L/m per nasal cannula. Head exam was generally normal. There was no scleral icterus or corneal arcus. Mucous membranes were moist. Neck was supple and without jugular venous distension, thyromegaly, or carotid bruits. Carotids were easily palpable bilaterally. There was no adenopathy. The patient has a right IJ Richmond-Noman catheter puncture site is dry clean and intact Lungs sounds are diminished bilaterally. Breath sounds are equal and symmetrical. No wheezes. No rhonchi. Sternum stable clean and intact. The patient has a chest tube in the right pleura. Cardiac exam revealed the PMI to be normally situated and sized. The rhythm was regular and no extrasystoles were noted during several minutes of auscultation. The first and second heart sounds were normal and physiologic splitting of the second heart sound was noted. There were no murmurs, rubs, clicks, or gallops. The patient rhythm is sinus with a first-degree AV block Abdominal exam revealed normal bowel sounds. The abdomen was soft, non-tender, and without masses, organomegaly, or appreciable enlargement of the abdominal aorta. Examination of the extremities revealed easily palpable radial, femoral and pedal pulses. There was no cyanosis, clubbing or edema. Examination of the skin revealed no evidence of significant rashes, suspicious appearing nevi or other concerning lesions. Neurologically arousable yet still sedated. Pupils are equal and reactive to light. - Labs CBC & Chem 7: 08/18/18 05:13 08/18/18 05:13 Labs: Abnormal Lab Results - Last 24 Hours (Table) 08/17/18 08/17/18 08/17/18 Range/Units 14:17 15:29 16:08 WBC (3.8-10.6) k/uL RBC (4.30-5.90) m/uL Hgb (13.0-17.5) gm/dL Hct (39.0-53.0) % Plt Count (150-450) k/uL Neutrophils # (1.3-7.7) k/uL Sodium (137-145) mmol/L BUN (9-20) mg/dL Glucose (74-99) mg/dL POC Glucose (mg/dL) 139 H 119 H 117 H (75-99) mg/dL Magnesium (1.6-2.3) mg/dL Total Bilirubin (0.2-1.3) mg/dL AST (17-59) U/L Total Protein (6.3-8.2) g/dL Albumin (3.5-5.0) g/dL 08/17/18 08/17/18 08/17/18 Range/Units 17:10 18:10 20:53 WBC (3.8-10.6) k/uL RBC (4.30-5.90) m/uL Hgb (13.0-17.5) gm/dL Hct (39.0-53.0) % Plt Count (150-450) k/uL Neutrophils # (1.3-7.7) k/uL Sodium (137-145) mmol/L BUN (9-20) mg/dL Glucose (74-99) mg/dL POC Glucose (mg/dL) 118 H 136 H 108 H (75-99) mg/dL Magnesium (1.6-2.3) mg/dL Total Bilirubin (0.2-1.3) mg/dL AST (17-59) U/L Total Protein (6.3-8.2) g/dL Albumin (3.5-5.0) g/dL 08/17/18 08/17/18 08/18/18 Range/Units 22:10 23:06 01:03 WBC (3.8-10.6) k/uL RBC (4.30-5.90) m/uL Hgb (13.0-17.5) gm/dL Hct (39.0-53.0) % Plt Count (150-450) k/uL Neutrophils # (1.3-7.7) k/uL Sodium (137-145) mmol/L BUN (9-20) mg/dL Glucose (74-99) mg/dL POC Glucose (mg/dL) 132 H 131 H 115 H (75-99) mg/dL Magnesium (1.6-2.3) mg/dL Total Bilirubin (0.2-1.3) mg/dL AST (17-59) U/L Total Protein (6.3-8.2) g/dL Albumin (3.5-5.0) g/dL 08/18/18 08/18/18 08/18/18 Range/Units 02:53 04:36 05:13 WBC (3.8-10.6) k/uL RBC (4.30-5.90) m/uL Hgb (13.0-17.5) gm/dL Hct (39.0-53.0) % Plt Count (150-450) k/uL Neutrophils # (1.3-7.7) k/uL Sodium 136 L (137-145) mmol/L BUN 37 H (9-20) mg/dL Glucose 104 H (74-99) mg/dL POC Glucose (mg/dL) 121 H 121 H (75-99) mg/dL Magnesium 2.4 H (1.6-2.3) mg/dL Total Bilirubin 1.4 H (0.2-1.3) mg/dL AST 65 H (17-59) U/L Total Protein 5.3 L (6.3-8.2) g/dL Albumin 2.9 L (3.5-5.0) g/dL 18 08/18/18 08/18/18 Range/Units 05:13 08:34 10:02 WBC 10.7 H (3.8-10.6) k/uL RBC 2.75 L (4.30-5.90) m/uL Hgb 8.1 L (13.0-17.5) gm/dL Hct 25.2 L (39.0-53.0) % Plt Count 144 L (150-450) k/uL Neutrophils # 7.9 H (1.3-7.7) k/uL Sodium (137-145) mmol/L BUN (9-20) mg/dL Glucose (74-99) mg/dL POC Glucose (mg/dL) 205 H 127 H (75-99) mg/dL Magnesium (1.6-2.3) mg/dL Total Bilirubin (0.2-1.3) mg/dL AST (17-59) U/L Total Protein (6.3-8.2) g/dL Albumin (3.5-5.0) g/dL 08/18/18 Range/Units 12:00 WBC (3.8-10.6) k/uL RBC (4.30-5.90) m/uL Hgb (13.0-17.5) gm/dL Hct (39.0-53.0) % Plt Count (150-450) k/uL Neutrophils # (1.3-7.7) k/uL Sodium (137-145) mmol/L BUN (9-20) mg/dL Glucose (74-99) mg/dL POC Glucose (mg/dL) 126 H (75-99) mg/dL Magnesium (1.6-2.3) mg/dL Total Bilirubin (0.2-1.3) mg/dL AST (17-59) U/L Total Protein (6.3-8.2) g/dL Albumin (3.5-5.0) g/dL Assessment and Plan Plan: Impression: 1 mitral valve replacement, mechanical valve, in addition to 2 vessel bypass surgery and clipping of the atrial appendage. The patient is postop day #3 2 post thoracotomy, successfully extubated and currently on 3 L/m per nasal cannula. The right-sided chest tube is still in place with diminished output 3 known history of coronary artery disease with previous stenting of RCA 4 history of severe mitral regurgitation with recurrent hospitalizations in the past for pulmonary edema 5 history of chronic atrial fibrillation, current rhythm is paced at the rate of 85 and underlying postop cardiac rhythm is third-degree AV block 6 history of left atrial appendage clot 7 history of sleep apnea combination of obstructive and central he was being treated with CPAP at a pressure of 9 cm of water 8 hypertension 9 diverticular disease 10 Osteoarthritis PLAN Continue using incentive spirometer. The right-sided chest tube will be removed. Aggressive physical therapy. Continue using incentive spirometer. Start Coumadin today in regards to a mechanical mitral valve and we'll try to achieve an INR between 2.5 and 3. Monitor for any sites of bleeding. Richmond- Noman catheter is been removed. The patient is on low-dose aspirin and Plavix and status. Overall doing well. He is ambulating. We'll continue to follow.
--- NOTE | 2018-08-18 15:18 | P.PN ---
Subjective 52-year-old gentleman had a mechanical mitral valve replacement and being started on Coumadin although patient is having bleeding from the cordis site in the neck. Patient had some increased pulmonary congestion for which patient received Lasix today. Patient is being started on Coumadin patient is on aspirin and Plavix patient has a clipping of atrial fibrillation and age with the two-vessel bypass surgery. Patient's mediastinal chest tube is out and patient has right-sided chest tube at this time. Is on IV ringer lactated Ringer's which was discontinued as he has some pulmonary edema. 08/18/2018 Patient still has a right-sided chest tube draining about 100 mL. Patient was started on IV heparin instead of Coumadin as the patient is bleeding from the neck the stronger and site area which has gotten better is still coughing. Constitutional: Denied any fatigue denied any fever. Cardio vascular: denied any chest pain, palpitations Gastrointestinal denied any nausea vomiting Pulmonary: Denied any shortness of breath cough Neurologic denied any new focal deficits All inpatient medications were reviewed and appropriate changes in these medications as dictated in the interval history and assessment and plan. Objective - Vital Signs Vital signs: Vital Signs Temp 98.2 F 08/18/18 00:00 Pulse 85 08/18/18 12:00 Resp 19 08/18/18 12:00 BP 105/63 08/18/18 12:00 Pulse Ox 95 08/18/18 12:00 Intake & Output 08/17/18 08/18/18 08/18/18 18:59 06:59 18:59 Intake Total 539.997 691.023 164.123 Output Total 1030 255 365 Balance -490.003 436.023 -200.877 Weight 123 kg Intake: IV 481 200 120 ACETAMINOPHEN IV (For NPO 100 ) 1,000 mg In Empty Bag 1 bag @ 400 mls/hr IVPB Q6HR [facility] Rx#:[id number] Lactated Ringers 1,000 ml 360 200 120 @ 20 mls/hr IV .Q24H [facility] Rx#:[id number] art,cvp,pa line 21 Intake, IV Titration 58.997 131.023 44.123 Amount ACETAMINOPHEN IV (For NPO 100 ) 1,000 mg In Empty Bag 1 bag @ 400 mls/hr IVPB Q6HR [facility] Rx#:[id number] Insulin Regular 100 unit 58.997 31.023 44.123 In Sodium Chloride 0.9% 100 ml @ Per Protocol IV .Q0M [facility] Rx#:[id number] Oral 360 Output: Chest Tube Drainage 285 85 90 Chest Tube Right Pleural/ 280 50 Mediastinal Pleural Catheter Right 5 35 90 Urine 745 170 275 Other: Voiding Method Indwelling Catheter Indwelling Catheter Urinal ABP, PAP, CO, CI - Last Documented Arterial Blood Pressure 137/135 Pulmonary Artery Pressure 40/15 Cardiac Output 9.9 Cardiac Index 4.1 - Exam PHYSICAL EXAMINATION: GENERAL: The patient is alert and oriented x3, not in any acute distress. Obese on fluids of passing cannula oxygen HEENT: Pupils are round and equally reacting to light. EOMI. No scleral icterus. No conjunctival pallor. Normocephalic, atraumatic. No pharyngeal erythema. No thyromegaly. CARDIOVASCULAR: S1 and S2 present. No murmurs, rubs, or gallops. PULMONARY: Chest is clear to auscultation, no wheezing or crackles. Surgical site area appears to be clean and bleeding from the neck from previous cordis site, patient has a right-sided chest tube ABDOMEN: Soft, nontender, nondistended, normoactive bowel sounds. No palpable organomegaly. MUSCULOSKELETAL: No joint swelling or deformity. EXTREMITIES: No cyanosis, clubbing, or pedal edema. NEUROLOGICAL: Gross neurological examination did not reveal any focal deficits. SKIN: No rashes. - Labs CBC & Chem 7: 08/18/18 05:13 08/18/18 05:13 Labs: Abnormal Lab Results - Last 24 Hours (Table) 08/17/18 08/17/18 08/17/18 Range/Units 15:29 16:08 17:10 WBC (3.8-10.6) k/uL RBC (4.30-5.90) m/uL Hgb (13.0-17.5) gm/dL Hct (39.0-53.0) % Plt Count (150-450) k/uL Neutrophils # (1.3-7.7) k/uL Sodium (137-145) mmol/L BUN (9-20) mg/dL Glucose (74-99) mg/dL POC Glucose (mg/dL) 119 H 117 H 118 H (75-99) mg/dL Magnesium (1.6-2.3) mg/dL Total Bilirubin (0.2-1.3) mg/dL AST (17-59) U/L Total Protein (6.3-8.2) g/dL Albumin (3.5-5.0) g/dL 08/17/18 08/17/18 08/17/18 Range/Units 18:10 20:53 22:10 WBC (3.8-10.6) k/uL RBC (4.30-5.90) m/uL Hgb (13.0-17.5) gm/dL Hct (39.0-53.0) % Plt Count (150-450) k/uL Neutrophils # (1.3-7.7) k/uL Sodium (137-145) mmol/L BUN (9-20) mg/dL Glucose (74-99) mg/dL POC Glucose (mg/dL) 136 H 108 H 132 H (75-99) mg/dL Magnesium (1.6-2.3) mg/dL Total Bilirubin (0.2-1.3) mg/dL AST (17-59) U/L Total Protein (6.3-8.2) g/dL Albumin (3.5-5.0) g/dL 08/17/18 08/18/18 08/18/18 Range/Units 23:06 01:03 02:53 WBC (3.8-10.6) k/uL RBC (4.30-5.90) m/uL Hgb (13.0-17.5) gm/dL Hct (39.0-53.0) % Plt Count (150-450) k/uL Neutrophils # (1.3-7.7) k/uL Sodium (137-145) mmol/L BUN (9-20) mg/dL Glucose (74-99) mg/dL POC Glucose (mg/dL) 131 H 115 H 121 H (75-99) mg/dL Magnesium (1.6-2.3) mg/dL Total Bilirubin (0.2-1.3) mg/dL AST (17-59) U/L Total Protein (6.3-8.2) g/dL Albumin (3.5-5.0) g/dL 08/18/18 08/18/18 08/18/18 Range/Units 04:36 05:13 05:13 WBC 10.7 H (3.8-10.6) k/uL RBC 2.75 L (4.30-5.90) m/uL Hgb 8.1 L (13.0-17.5) gm/dL Hct 25.2 L (39.0-53.0) % Plt Count 144 L (150-450) k/uL Neutrophils # 7.9 H (1.3-7.7) k/uL Sodium 136 L (137-145) mmol/L BUN 37 H (9-20) mg/dL Glucose 104 H (74-99) mg/dL POC Glucose (mg/dL) 121 H (75-99) mg/dL Magnesium 2.4 H (1.6-2.3) mg/dL Total Bilirubin 1.4 H (0.2-1.3) mg/dL AST 65 H (17-59) U/L Total Protein 5.3 L (6.3-8.2) g/dL Albumin 2.9 L (3.5-5.0) g/dL 08/18/18 08/18/18 08/18/18 Range/Units 08:34 10:02 12:00 WBC (3.8-10.6) k/uL RBC (4.30-5.90) m/uL Hgb (13.0-17.5) gm/dL Hct (39.0-53.0) % Plt Count (150-450) k/uL Neutrophils # (1.3-7.7) k/uL Sodium (137-145) mmol/L BUN (9-20) mg/dL Glucose (74-99) mg/dL POC Glucose (mg/dL) 205 H 127 H 126 H (75-99) mg/dL Magnesium (1.6-2.3) mg/dL Total Bilirubin (0.2-1.3) mg/dL AST (17-59) U/L Total Protein (6.3-8.2) g/dL Albumin (3.5-5.0) g/dL Assessment and Plan Plan: -Mitral valve replacement mechanical mitral valve with 2 vessel bypass in atrial fibrillation and is clipping sinus rhythm -Postoperative respiratory failure brief was extubated presently on 3 L of oxygen receiving Lasix for mild pulmonary edema, presently had a right-sided chest tube draining 100 mL so far today probably can come out tomorrow -Coronary artery disease with stenting in the past now 2 vessel bypass -Chronic A. fib presently sinus rhythm after clipping of atrial fibrillation and age -Obstructive sleep apnea -Hypertension -Elevated blood sugars no history of diabetes mellitus we'll obtain hemoglobin A1c patient is presently on IV insulin, hopefully can be switched to sliding scale insulin tomorrow although requiring quite a bit of insulin -Osteoarthritis -Anticoagulation with heparin for mechanical aortic valve.
[2018-08-18] MEDS: HYDROcodone/APAP 5-325MG 1 EACH TAB PO PRN ×2 (16:33→22:48)
[2018-08-18 17:19] LABS: Glucose,Whole Blood 139 mg/dL (75-99)
[2018-08-18] MEDS ORDERED: WARFARIN 7.5 MG TAB PO ONE (18:00)
[2018-08-18] MEDS ORDERED: HEPARIN SODIUM,PORCINE 5,000 UNIT/ML 1 ML VIAL IV STA (20:09)
[2018-08-18 20:10] LABS: Glucose,Whole Blood 161 mg/dL (75-99)
[2018-08-18] MEDS: SENNOSIDES-DOCUSATE SODIUM 1 EACH TAB PO SCH (20:25)
[2018-08-19] MEDS: KETOROLAC 30 MG/ML 1 ML VIAL IVP SCH ×5 (00:06→23:57)
[2018-08-19 02:57] LABS: Glucose,Whole Blood 138 mg/dL (75-99)
[2018-08-19 03:01] LABS: Basophils % (A) 0 %; Eosinophils # (A) 0.4 k/uL (0-0.7); Eosinophils % (A) 4 %; HCT 23.5 % (39.0-53.0); HGB 7.7 gm/dL (13.0-17.5); Lymphocytes # (A) 1.1 k/uL (1.0-4.8); Lymphocytes % (A) 13 %; MCH 29.5 pg (25.0-35.0); MCHC 32.8 g/dL (31.0-37.0); MCV 89.9 fL (80.0-100.0); Mean Platelet Volume 8.3; Monocytes # (A) 0.6 k/uL (0-1.0); Monocytes % (A) 6 %; Neutrophils # (A) 6.3 k/uL (1.3-7.7); Neutrophils % (A) 73 %; Platelet Count 172 k/uL (150-450); RBC 2.61 m/uL (4.30-5.90); WBC 8.6 k/uL (3.8-10.6)
[2018-08-19 03:10] LABS: INR 0.9 (<1.2); Partial Thromboplastin Time 36.3 sec (22.0-30.0); Prothrombin Time 9.8 sec (9.0-12.0)
[2018-08-19 03:15] LABS: ALT 111 U/L (21-72); AST 93 U/L (17-59); Albumin 2.9 g/dL (3.5-5.0); Alkaline Phosphatase 134 U/L (38-126); Anion Gap 6 mmol/L; Blood Urea Nitrogen 37 mg/dL (9-20); Calcium 8.6 mg/dL (8.4-10.2); Carbon Dioxide 28 mmol/L (22-30); Chloride 100 mmol/L (98-107); Glucose 122 mg/dL (74-99); Magnesium 2.4 mg/dL (1.6-2.3); Potassium 4.9 mmol/L (3.5-5.1); Sodium 134 mmol/L (137-145); Total Bilirubin 1.4 mg/dL (0.2-1.3); Total Protein 5.3 g/dL (6.3-8.2)
[2018-08-19] MEDS ORDERED: HEPARIN SODIUM,PORCINE 5,000 UNIT/ML 1 ML VIAL IV STA (03:34)
[2018-08-19] MEDS: HEPARIN SODIUM,PORCINE 5,000 UNIT/ML 1 ML VIAL IV PRN ×3 (03:51→20:59)
[2018-08-19] MEDS: LACTATED RINGERS 1,000 ML IV SCH (06:00)
[2018-08-19 07:17] LABS: Glucose,Whole Blood 116 mg/dL (75-99)
[2018-08-19] MEDS: INSULIN ASPART 100 UNIT/ML 1 ML 10 ML VIAL SQ SCH ×4 (07:22→20:43)
[2018-08-19] MEDS: IPRATROPIUM-ALBUTEROL 3 ML NEB INHALATION SCH ×4 (07:54→19:29)
--- NOTE | 2018-08-19 08:01 | P.PN ---
Subjective Progress Note Date: 08/19/18 Principal diagnosis: Status post mitral valve repair. This is a continue present 53-year-old white male who is postoperative mitral valve repair. He has an underlying history of COPD and atrial fibrillation which is been fairly stable. Pain is minimal. The patient currently is on heparin. No significant nausea, vomiting or diarrhea stated. He is sitting comfortably today. No BM yet. Objective - Vital Signs Vital signs: Vital Signs Temp 98.5 F 08/19/18 04:00 Pulse 78 08/19/18 07:57 Resp 14 08/19/18 07:00 BP 96/77 08/19/18 07:00 Pulse Ox 93 L 08/19/18 07:58 Intake & Output 08/18/18 08/19/18 08/19/18 18:59 06:59 18:59 Intake Total 734.123 560.346 20 Output Total 665 855 40 Balance 69.123 -294.654 -20 Weight 128 kg Intake: IV 240 220 20 Lactated Ringers 1,000 ml 240 220 20 @ 20 mls/hr IV .Q24H [facility] Rx#:[id number] Intake, IV Titration 44.123 340.346 Amount Heparin Sod,Pork in 0.45% 340.346 NaCl 25,000 unit In 0.45 % NaCl 1 500ml.bag @ 8.13 UNITS/KG/HR 19.99 mls/hr IV .Q24H [facility] Rx#: [id number] Insulin Regular 100 unit 44.123 In Sodium Chloride 0.9% 100 ml @ Per Protocol IV .Q0M [facility] Rx#:[id number] Oral 450 Output: Chest Tube Drainage 90 140 40 Pleural Catheter Right 90 140 40 Urine 575 715 Other: Voiding Method Urinal Urinal ABP, PAP, CO, CI - Last Documented Arterial Blood Pressure 137/135 Pulmonary Artery Pressure 40/15 Cardiac Output 9.9 Cardiac Index 4.1 - Constitutional General appearance: Present: obese - EENT Eyes: Absent: abnormal pupil - Neck Neck: Absent: lymphadenopathy - Respiratory Respiratory: bilateral: CTA - Cardiovascular Rhythm: regular Heart sounds: normal: S1, S2 Abnormal Heart Sounds: Absent: S3 Gallop - Gastrointestinal General gastrointestinal: Present: soft. Absent: tenderness - Neurologic Neurologic: Present: CNII-XII intact - Musculoskeletal Musculoskeletal: Present: strength equal bilaterally - Labs CBC & Chem 7: 08/19/18 02:43 08/19/18 02:43 Labs: Abnormal Lab Results - Last 24 Hours (Table) 08/18/18 08/18/18 08/18/18 Range/Units 08:34 10:02 12:00 RBC (4.30-5.90) m/uL Hgb (13.0-17.5) gm/dL Hct (39.0-53.0) % APTT (22.0-30.0) sec Sodium (137-145) mmol/L BUN (9-20) mg/dL Glucose (74-99) mg/dL POC Glucose (mg/dL) 205 H 127 H 126 H (75-99) mg/dL Magnesium (1.6-2.3) mg/dL Total Bilirubin (0.2-1.3) mg/dL AST (17-59) U/L ALT (21-72) U/L Alkaline Phosphatase (38-126) U/L Total Protein (6.3-8.2) g/dL Albumin (3.5-5.0) g/dL 08/18/18 08/18/18 08/19/18 Range/Units 17:06 19:59 02:43 RBC 2.61 L (4.30-5.90) m/uL Hgb 7.7 L (13.0-17.5) gm/dL Hct 23.5 L (39.0-53.0) % APTT (22.0-30.0) sec Sodium (137-145) mmol/L BUN (9-20) mg/dL Glucose (74-99) mg/dL POC Glucose (mg/dL) 139 H 161 H (75-99) mg/dL Magnesium (1.6-2.3) mg/dL Total Bilirubin (0.2-1.3) mg/dL AST (17-59) U/L ALT (21-72) U/L Alkaline Phosphatase (38-126) U/L Total Protein (6.3-8.2) g/dL Albumin (3.5-5.0) g/dL 08/19/18 08/19/18 08/19/18 Range/Units 02:43 02:43 02:45 RBC (4.30-5.90) m/uL Hgb (13.0-17.5) gm/dL Hct (39.0-53.0) % APTT 36.3 H (22.0-30.0) sec Sodium 134 L (137-145) mmol/L BUN 37 H (9-20) mg/dL Glucose 122 H (74-99) mg/dL POC Glucose (mg/dL) 138 H (75-99) mg/dL Magnesium 2.4 H (1.6-2.3) mg/dL Total Bilirubin 1.4 H (0.2-1.3) mg/dL AST 93 H (17-59) U/L ALT 111 H (21-72) U/L Alkaline Phosphatase 134 H (38-126) U/L Total Protein 5.3 L (6.3-8.2) g/dL Albumin 2.9 L (3.5-5.0) g/dL 08/19/18 Range/Units 07:06 RBC (4.30-5.90) m/uL Hgb (13.0-17.5) gm/dL Hct (39.0-53.0) % APTT (22.0-30.0) sec Sodium (137-145) mmol/L BUN (9-20) mg/dL Glucose (74-99) mg/dL POC Glucose (mg/dL) 116 H (75-99) mg/dL Magnesium (1.6-2.3) mg/dL Total Bilirubin (0.2-1.3) mg/dL AST (17-59) U/L ALT (21-72) U/L Alkaline Phosphatase (38-126) U/L Total Protein (6.3-8.2) g/dL Albumin (3.5-5.0) g/dL Assessment and Plan (1) Status post mitral valve repair Current Visit: Yes Status: Acute Code(s): Z98.890 - OTHER SPECIFIED POSTPROCEDURAL STATES SNOMED Code(s): 862412263 (2) Atrial fibrillation Current Visit: No Status: Acute Code(s): I48.91 - UNSPECIFIED ATRIAL FIBRILLATION SNOMED Code(s): 79755448 (3) CAD (coronary artery disease) Current Visit: Yes Status: Chronic Code(s): I25.10 - ATHSCL HEART DISEASE OF [place] CORONARY ARTERY W/O ANG PCTRS SNOMED Code(s): 45360673 (4) Former smoker Current Visit: No Status: Resolved Code(s): Z87.891 - PERSONAL HISTORY OF NICOTINE DEPENDENCE SNOMED Code(s): 8120904 Plan: Continue current regimen of treatment. We will follow significantly with thoracic surgery. History of recovery is excellent at this time. He has been in sinus rhythm at this point. We'll continue to follow. Time with Patient: Less than 30
[2018-08-19] MEDS: ASPIRIN 81 MG PO SCH (08:08)
[2018-08-19] MEDS: CITALOPRAM HYDROBROMIDE 10 MG TAB PO SCH (08:08)
[2018-08-19] MEDS: PANTOPRAZOLE 40 MG TABLET PO SCH (08:08)
[2018-08-19] MEDS: ATORVASTATIN 40 MG TAB PO SCH (08:08)
--- NOTE | 2018-08-19 08:27 | XR ---
EXAMINATION TYPE: XR chest 1V portable DATE OF EXAM: 08/19/2018 COMPARISON: Prior chest x-ray 08/18/2018 HISTORY: Chest tube, postop TECHNIQUE: Single frontal view of the chest is obtained. FINDINGS: Right-sided chest tube remains in place, patient is post median sternotomy and atrial appe ndage clipping. Cardiac valve replacement is noted. No evident sizable pneumothorax or effusion. Pleu ral parenchymal changes are similar. Heart remains enlarged. There are overlying cardiac leads. IMPRESSION: Similar findings. Cardiomegaly. Probable residual atelectasis. Follow-up with PA and lat eral chest x-ray when patient is clinically stable.
[2018-08-19] MEDS: HYDROcodone/APAP 5-325MG 1 EACH TAB PO PRN ×3 (08:36→20:43)
[2018-08-19] MEDS ORDERED: FUROSEMIDE 10 MG/ML 4 ML VIAL IV STA (08:54)
[2018-08-19] MEDS: HEPARIN SOD,PORK IN 0.45% NACL 25,000 UNIT in 0.45% NACL 1 500ML.BAG IV SCH ×2 (12:08→22:22)
[2018-08-19 12:19] LABS: Glucose,Whole Blood 136 mg/dL (75-99)
--- NOTE | 2018-08-19 13:32 | P.PN ---
Subjective Progress Note Date: 08/19/18 Principal diagnosis: Status post mitral valve replacement and two-vessel CABG postoperative day #4 This is a 53-year-old male patient who is being seen in the intensive care unit following his mitral valve replacement surgery. The patient underwent mitral valve replacement, tissue valve, in addition to modified Wolf-Maze procedure, clipping of the appendage and 2 vessel bypass including a BINTA to RCA and SVG to OM1, and the patient is currently intubated on a mechanical ventilator in the intensive care unit. Chest x-ray shows increased vascular congestion. Orotracheal tube is in a good location. The patient has a right IJ [place] catheter in place. The patient also has a mediastinal and the left pleural chest tube. The blood gases showed a pH of 7.26 with a pCO2 of 60 and pO2 139. Based on this, I put the patient on avoidance cycle mode assist control at a rate of 20, tidal volume of 550, FiO2 is down to 60% and a PEEP of 20. Follow- up blood gases are still pending for now. Hemodynamically the patient is on no pressors. The patient's mean arterial pressures around 60 to and the patient be given IV albumin. Maintenance fluid is normal saline today to 50 mL an hour. Cardiac index is at 2.6. Pulmonary artery pressure nonelevated. Upper from the chest tube both mediastinal and pleural is a total of 130 mL since his arrival from the operating room. He is producing adequate amount of urine output. He is currently off sedation. He was given a dose of fentanyl 50 g for increased chest wall pain. His cardiac rhythm is paced at the rate of 85. Underlying cardiac rhythm is a block third-degree. On 08/16/2018 patient seen in follow-up in the intensive care unit, patient has been extubated, currently on 2 L per nasal cannula his pulse ox is 96%, afebrile , hemodynamically stable. Currently in sinus rhythm, echo with backup rate. Patient is sitting up in the chair, in no acute distress, lung sounds are clear diminished at the bases, he is working on his incentive spirometer, his ISS effort is 1500 today. PA pressures 39/19, cardiac output and index are 9.9 and 4.1 respectively. Right and mediastinal chest tube output has been 605 ML in the last 24 hours. Santiago catheter is in place, patient is nonoliguric. Her and IV infusions include LR at a rate of 50 ML per hour, and insulin is at 6 units per minute. Chest x-ray has been reviewed and showed stable scattered infiltrates, likely atelectasis. Her pain is reasonably controlled. Today's blood work showed WBC of 12.7, hemoglobin of 10.0, sodium 140 potassium is 4.9, chloride is 107, BUN is 22, creatinine 0.7. The patient was seen again today 08/17/2018 in follow-up in the intensive care unit. He is currently sitting up in a chair at the bedside. He is awake and alert in no acute distress. He denies any worsening shortness of breath, cough or congestion. His pain is well controlled. He is working well with the incentive spirometer. He is maintaining good O2 saturations in the upper 90s on 3 L/m per nasal cannula. His x-ray reveals cardiomegaly with bilateral platelike atelectasis and small effusion. Mediastinal/right pleural chest tube remains in place. He's been afebrile. Hemodynamically stable. White count 11.8. Hemoglobin 8.9. Creatinine 0.78. Remains on lactated Ringer's at 50 MLS per hour. Insulin drip at 4.5 units per hour. On 08/18/2089 seeing this patient for a follow-up. The patient has postop day # 3. He underwent mitral valve replacement. He also underwent three-vessel bypass surgery. Hemodynamically stable. He is in a sinus rhythm. Note that he also had a modified maze procedure using radiofrequency and cryoablation. The patient has no complaints. The [place] catheter has been removed. He did encounter some bleeding from the puncture site where pressure was applied and currently hemostasis is achieved. He is cardiac rhythm is sinus with a first-degree AV block. He is swallowing. He is ambulating. The patient has chest tubes in place and the patient's right-sided chest tube has drained 5 ML' s of serosanguineous drainage over the past 8 hours and 300 over the past 24 hours without evidence of any air leak. The patient is pulling approximately 1500 mL on the incentive spirometer. Pulse ox is 95% liters of oxygen by nasal cannula. Chest x-ray shows adequate expansion of both lungs. Chest tube is in good location. No pneumothorax. On 08/19/2018, patient was seen on follow-up, in the ICU, he is postoperative day #4. Patient had a mitral valve replacement and two-vessel bypass surgery. Patient is doing great, relatively asymptomatic, denies any cough no wheezing no shortness of breath, presently is on room air. Doing great with incentive spirometry, chest x-ray showed right-sided chest tube in place, minimal atelectasis at the bases especially at the left base. Patient again is relatively asymptomatic. CBC is relatively normal hemoglobin is 7.7. Basic metabolic profile is normal, renal profile is normal. Liver enzymes were noted to be slightly elevated. Objective - Vital Signs Vital signs: Vital Signs Temp 98.8 F 08/19/18 09:00 Pulse 80 08/19/18 11:27 Resp 17 08/19/18 11:00 BP 96/64 08/19/18 11:00 Pulse Ox 92 L 08/19/18 11:00 Intake & Output 08/18/18 08/19/18 08/19/18 18:59 06:59 18:59 Intake Total 734.123 609.457 3126.654 Output Total 665 855 340 Balance 69.123 -600.659 6930.654 Weight 128 kg Intake: IV 240 220 100 Lactated Ringers 1,000 ml 240 220 100 @ 20 mls/hr IV .Q24H SAMANTHA Rx#:[id number] Intake, IV Titration 44.123 340.346 159.654 Amount Heparin Sod,Pork in 0.45% 340.346 159.654 NaCl 25,000 unit In 0.45 % NaCl 1 500ml.bag @ 8.13 UNITS/KG/HR 19.99 mls/hr IV .Q24H SAMANTHA Rx#: [id number] Insulin Regular 100 unit 44.123 In Sodium Chloride 0.9% 100 ml @ Per Protocol IV .Q0M SAMANTHA Rx#:[id number] Oral 450 1200 Output: Chest Tube Drainage 90 140 40 Pleural Catheter Right 90 140 40 Urine 575 715 300 Other: Voiding Method Urinal Urinal Toilet Urinal # Voids 1 ABP, PAP, CO, CI - Last Documented Arterial Blood Pressure 137/135 Pulmonary Artery Pressure 40/15 Cardiac Output 9.9 Cardiac Index 4.1 - Exam Physical Exam: Revealed a 53-year-old white male in no distress. Head: Atraumatic, normocephalic. HEENT: PERRLA, EOMI, no icterus. [Neck is supple.] [No neck masses.] [No thyromegaly.] [No JVD.] Moist mucous membranes. Throat is clear. Chest: [Clear throughout, no crackles, no rhonchi, no wheezes.] Right-sided chest tube is noted. Surgical site is clean and dry. Cardiac Exam: [Normal S1 and S2, no S3 gallop, no murmur.] Abdomen: Obese, [Soft, nontender, no megaly, no rebound, no guarding, normal bowel sounds.] Extremities: [No clubbing, no edema, no cyanosis.] Neurological Exam: [No focal neurologic deficit.] Psychiatric: Normal mood, affect and mental status examination. Skin: No rashes. - Labs CBC & Chem 7: 08/19/18 02:43 08/19/18 02:43 Labs: Abnormal Lab Results - Last 24 Hours (Table) 08/18/18 08/18/18 08/19/18 Range/Units 17:06 19:59 02:43 RBC 2.61 L (4.30-5.90) m/uL Hgb 7.7 L (13.0-17.5) gm/dL Hct 23.5 L (39.0-53.0) % APTT (22.0-30.0) sec Sodium (137-145) mmol/L BUN (9-20) mg/dL Glucose (74-99) mg/dL POC Glucose (mg/dL) 139 H 161 H (75-99) mg/dL Magnesium (1.6-2.3) mg/dL Total Bilirubin (0.2-1.3) mg/dL AST (17-59) U/L ALT (21-72) U/L Alkaline Phosphatase (38-126) U/L Total Protein (6.3-8.2) g/dL Albumin (3.5-5.0) g/dL 08/19/18 08/19/18 08/19/18 Range/Units 02:43 02:43 02:45 RBC (4.30-5.90) m/uL Hgb (13.0-17.5) gm/dL Hct (39.0-53.0) % APTT 36.3 H (22.0-30.0) sec Sodium 134 L (137-145) mmol/L BUN 37 H (9-20) mg/dL Glucose 122 H (74-99) mg/dL POC Glucose (mg/dL) 138 H (75-99) mg/dL Magnesium 2.4 H (1.6-2.3) mg/dL Total Bilirubin 1.4 H (0.2-1.3) mg/dL AST 93 H (17-59) U/L ALT 111 H (21-72) U/L Alkaline Phosphatase 134 H (38-126) U/L Total Protein 5.3 L (6.3-8.2) g/dL Albumin 2.9 L (3.5-5.0) g/dL 08/19/18 08/19/18 08/19/18 Range/Units 07:06 12:04 12:10 RBC (4.30-5.90) m/uL Hgb (13.0-17.5) gm/dL Hct (39.0-53.0) % APTT 40.1 H (22.0-30.0) sec Sodium (137-145) mmol/L BUN (9-20) mg/dL Glucose (74-99) mg/dL POC Glucose (mg/dL) 116 H 136 H (75-99) mg/dL Magnesium (1.6-2.3) mg/dL Total Bilirubin (0.2-1.3) mg/dL AST (17-59) U/L ALT (21-72) U/L Alkaline Phosphatase (38-126) U/L Total Protein (6.3-8.2) g/dL Albumin (3.5-5.0) g/dL Assessment and Plan Assessment: Impression: 1 status post mitral valve replacement and two-vessel bypass surgery postoperative day #4. 2 history of severe mitral valve regurgitation and pulmonary edema in the past. 3 history of left atrial appendage clot. 4 obstructive sleep apnea syndrome on CPAP at night. 5 multiple comorbidities including obesity, hypertension, osteoarthritis, diverticular disease, and known history of coronary artery disease with previous stenting of RCA. Recommendation: Continue incentive spirometry, his chest tube will likely be removed today, continue ambulation, likely transfer out of the ICU to a monitor bed on selective today. We'll continue to follow. Time with Patient: Less than 30
--- NOTE | 2018-08-19 15:03 | P.PN ---
Subjective Progress Note Date: 08/19/18 Principal diagnosis: Mitral regurgitation. Mitral stenosis. Paroxysmal atrial fibrillation. Coronary artery disease. History of cardioversions, hypertension, hyperlipidemia, obstructive sleep apnea, previous tobacco dependence, mild COPD with preoperative FEV1 68% of predicted, daily EtOH use, GERD, obesity, and family history of premature coronary artery disease with brother diagnosed at 34 and father diagnosed at 42. POD #4 mitral valve replacement with a #31/33 On-X mechanical mitral valve. Coronary bypass grafting 2 with a right internal mammary artery to the right coronary artery, reverse saphenous vein graft off the aorta to the second obtuse marginal artery. Endovascular vein harvest of the left greater saphenous vein. Clip ligation of the left atrial appendage with a #40 mm AtriClip. Complete left-sided maze procedure using radiofrequency and cryoablation. Intraoperative transesophageal echocardiogram. Postoperative acute blood loss anemia, expected post surgical condition secondary to hemodilution and cardiopulmonary bypass pump. The patient is currently sitting up in the chair in no acute distress. States postoperative pain is controlled on current medication regimen, denies shortness of breath. Currently hemodynamically stable. Remains in sinus rhythm with first-degree AV block. No new complaints. His swallowing is much better. He was started on IV heparin and Coumadin yesterday. Objective - Vital Signs Vital signs: Vital Signs Temp 98.8 F 08/19/18 09:00 Pulse 80 08/19/18 11:27 Resp 17 08/19/18 11:00 BP 96/64 08/19/18 11:00 Pulse Ox 92 L 08/19/18 11:00 Intake & Output 08/18/18 08/19/18 08/19/18 18:59 06:59 18:59 Intake Total 734.123 006.990 7933.654 Output Total 665 855 340 Balance 69.123 -294.654 899.654 Weight 128 kg Intake: IV 240 220 80 Lactated Ringers 1,000 ml 240 220 80 @ 20 mls/hr IV .Q24H SAMANTHA Rx#:[id number] Intake, IV Titration 44.123 340.346 159.654 Amount Heparin Sod,Pork in 0.45% 340.346 159.654 NaCl 25,000 unit In 0.45 % NaCl 1 500ml.bag @ 8.13 UNITS/KG/HR 19.99 mls/hr IV .Q24H SAMANTHA Rx#: [id number] Insulin Regular 100 unit 44.123 In Sodium Chloride 0.9% 100 ml @ Per Protocol IV .Q0M SAMANTHA Rx#:[id number] Oral 450 1000 Output: Chest Tube Drainage 90 140 40 Pleural Catheter Right 90 140 40 Urine 575 715 300 Other: Voiding Method Urinal Urinal Toilet Urinal # Voids 1 ABP, PAP, CO, CI - Last Documented Arterial Blood Pressure 137/135 Pulmonary Artery Pressure 40/15 Cardiac Output 9.9 Cardiac Index 4.1 - Constitutional General appearance: Present: cooperative, no acute distress - Respiratory Details: Lungs sounds diminished bilaterally. Respirations even, nonlabored. Currently on room air with oxygen saturation 94%. Able to achieve 1500 mL on his incentive spirometry. Strong cough. Right pleural chest tube to continuous wall suction, 70 mL serosanguineous drainage overnight, 300 mL in the last 24 hours, no air leak present. - Cardiovascular Details: S1, S2 present. Positive valvular click. Regular rate and rhythm, sinus rhythm with first-degree AV block on telemetry. Sternum stable. Palpable peripheral pulses bilaterally. No edema present. No calf pain or tenderness noted. Heart hugger in place with patient demonstrating appropriate use. Antiembolism stockings, SCDs present. - Gastrointestinal Gastrointestinal Comment(s): Abdomen soft, nontender, nondistended. Active bowel sounds present 4 quadrants. Tolerating diet. Positive flatus, negative bowel movement. - Genitourinary Genitourinary Comment(s): Patient continues to void clear, yellow urine. Output overnight 495 mL. - Integumentary Integumentary Comment(s): Skin is warm and dry with evidence of good perfusion. Anterior chest incision well approximated and covered with dry intact dressing. Left lower extremity EVH site well approximated. - Neurologic Neurologic: Present: CNII-XII intact - Musculoskeletal Musculoskeletal: Present: gait normal, strength equal bilaterally - Psychiatric Psychiatric: Present: A&O x's 3, appropriate affect, intact judgment & insight - Allied health notes Allied health notes reviewed: nursing - Labs CBC & Chem 7: 08/19/18 02:43 08/19/18 02:43 Labs: Abnormal Lab Results - Last 24 Hours (Table) 08/18/18 08/18/18 08/19/18 Range/Units 17:06 19:59 02:43 RBC 2.61 L (4.30-5.90) m/uL Hgb 7.7 L (13.0-17.5) gm/dL Hct 23.5 L (39.0-53.0) % APTT (22.0-30.0) sec Sodium (137-145) mmol/L BUN (9-20) mg/dL Glucose (74-99) mg/dL POC Glucose (mg/dL) 139 H 161 H (75-99) mg/dL Magnesium (1.6-2.3) mg/dL Total Bilirubin (0.2-1.3) mg/dL AST (17-59) U/L ALT (21-72) U/L Alkaline Phosphatase (38-126) U/L Total Protein (6.3-8.2) g/dL Albumin (3.5-5.0) g/dL 08/19/18 08/19/18 08/19/18 Range/Units 02:43 02:43 02:45 RBC (4.30-5.90) m/uL Hgb (13.0-17.5) gm/dL Hct (39.0-53.0) % APTT 36.3 H (22.0-30.0) sec Sodium 134 L (137-145) mmol/L BUN 37 H (9-20) mg/dL Glucose 122 H (74-99) mg/dL POC Glucose (mg/dL) 138 H (75-99) mg/dL Magnesium 2.4 H (1.6-2.3) mg/dL Total Bilirubin 1.4 H (0.2-1.3) mg/dL AST 93 H (17-59) U/L ALT 111 H (21-72) U/L Alkaline Phosphatase 134 H (38-126) U/L Total Protein 5.3 L (6.3-8.2) g/dL Albumin 2.9 L (3.5-5.0) g/dL 08/19/18 08/19/18 08/19/18 Range/Units 07:06 12:04 12:10 RBC (4.30-5.90) m/uL Hgb (13.0-17.5) gm/dL Hct (39.0-53.0) % APTT 40.1 H (22.0-30.0) sec Sodium (137-145) mmol/L BUN (9-20) mg/dL Glucose (74-99) mg/dL POC Glucose (mg/dL) 116 H 136 H (75-99) mg/dL Magnesium (1.6-2.3) mg/dL Total Bilirubin (0.2-1.3) mg/dL AST (17-59) U/L ALT (21-72) U/L Alkaline Phosphatase (38-126) U/L Total Protein (6.3-8.2) g/dL Albumin (3.5-5.0) g/dL - Imaging and Cardiology Chest x-ray: report reviewed, image reviewed Assessment and Plan (1) Mitral regurgitation Current Visit: Yes Status: Chronic Code(s): I34.0 - NONRHEUMATIC MITRAL ( VALVE) INSUFFICIENCY SNOMED Code(s): 24776089 (2) Mitral stenosis Current Visit: Yes Status: Chronic Code(s): I05.0 - RHEUMATIC MITRAL STENOSIS SNOMED Code(s): 76274030 (3) Paroxysmal atrial fibrillation Current Visit: No Status: Resolved Code(s): I48.0 - PAROXYSMAL ATRIAL FIBRILLATION SNOMED Code(s): 714728496 (4) Sleep apnea Current Visit: Yes Status: Chronic Code(s): G47.30 - SLEEP APNEA, UNSPECIFIED SNOMED Code(s): 78103523 (5) COPD (chronic obstructive pulmonary disease) Current Visit: Yes Status: Chronic Code(s): J44.9 - CHRONIC OBSTRUCTIVE PULMONARY DISEASE, UNSPECIFIED SNOMED Code(s): 61470877 (6) Status post mitral valve repair Current Visit: Yes Status: Acute Code(s): Z98.890 - OTHER SPECIFIED POSTPROCEDURAL STATES SNOMED Code(s): 433110572 (7) CAD (coronary artery disease) Current Visit: Yes Status: Chronic Code(s): I25.10 - ATHSCL HEART DISEASE OF [place] CORONARY ARTERY W/O ANG PCTRS SNOMED Code(s): 40113647 (8) Former smoker Current Visit: No Status: Resolved Code(s): Z87.891 - PERSONAL HISTORY OF NICOTINE DEPENDENCE SNOMED Code(s): 6084399 (9) Hypertension Current Visit: Yes Status: Chronic Code(s): I10 - ESSENTIAL (PRIMARY) HYPERTENSION SNOMED Code(s): 71329599 (10) Alcohol abuse Current Visit: Yes Status: Chronic Code(s): F10.10 - ALCOHOL ABUSE, UNCOMPLICATED SNOMED Code(s): 42364413 (11) GERD (gastroesophageal reflux disease) Current Visit: Yes Status: Chronic Code(s): K21.9 - GASTRO-ESOPHAGEAL REFLUX DISEASE WITHOUT ESOPHAGITIS SNOMED Code(s): 640638686 (12) Obesity (BMI 30-39.9) Current Visit: Yes Status: Chronic Code(s): E66.9 - OBESITY, UNSPECIFIED SNOMED Code(s): 417919536 (13) Family history of premature CAD Current Visit: Yes Status: Chronic Code(s): Z82.49 - FAMILY HX OF ISCHEM HEART DIS AND OTH DIS OF THE CIRC SYS SNOMED Code(s): 660211391 Plan: 1. Continue low-dose aspirin aspirin, statin. Will add Coreg. 2. Will Coumadin therapy daily based on daily PT/INR. Goal INR 3.0. Will discontinue heparin drip once Coumadin is therapeutic. 3. Encourage incentive spirometry use 10 times every hour while awake. 4. Right pleural chest tube discontinued. Patient tolerated well. 5. Increase activity, ambulate as tolerated. PT/OT/cardiac rehab following. 6. Will monitor daily labs and x-rays. Electrolyte replacement per protocol. 7. Insulin per primary care service. 8. Pain control with current medication regimen. 9. GI prophylaxis with Protonix. DVT prophylaxis with subcu heparin, SCDs. 10. Bronchodilators per pulmonology. 11. Transfer orders for [address] [place] [address] cardiac stepdown unit. May transfer when bed available. 12. More recommendations to follow. Time with Patient: Greater than 30
[2018-08-19] MEDS: CARVEDILOL 1.563 MG TAB PO SCH ×2 (15:43→18:25)
--- NOTE | 2018-08-19 16:39 | PN ---
PROGRESS NOTE Mr. Hare is status post mitral valve replacement and two-vessel bypass. He is doing well, recovering nicely. He remains in sinus rhythm with a large first-degree, unchanged, hemodynamically stable. His anticoagulation has been started, given that he has a mechanical mitral valve. S1, S2 heard normally. Short systolic murmur noted. Lungs reveal improved air entry. Abdomen and lower extremity exam unchanged. Plan is to continue current medications , incentive spirometry and pulmonary toilet and gradual increase in activity. MMODL / IJN: [id number] /
[2018-08-19 17:19] LABS: Glucose,Whole Blood 143 mg/dL (75-99)
[2018-08-19] MEDS ORDERED: WARFARIN 5 MG TAB PO ONE (18:00)
[2018-08-19] MEDS: SENNOSIDES-DOCUSATE SODIUM 1 EACH TAB PO SCH (20:43)
[2018-08-19 20:49] LABS: Glucose,Whole Blood 135 mg/dL (75-99)
[2018-08-20 03:22] LABS: HCT 21.5 % (39.0-53.0); HGB 7.1 gm/dL (13.0-17.5); MCH 29.8 pg (25.0-35.0); MCHC 32.8 g/dL (31.0-37.0); Mean Platelet Volume 7.9; Platelet Count 214 k/uL (150-450); RBC 2.37 m/uL (4.30-5.90); RDW 14.9 % (11.5-15.5); WBC 8.1 k/uL (3.8-10.6)
[2018-08-20 03:30] LABS: Partial Thromboplastin Time 74.2 sec (22.0-30.0)
[2018-08-20 04:23] LABS: Potassium 4.7 mmol/L (3.5-5.1)
[2018-08-20 04:24] LABS: ALT 85 U/L (21-72); AST 55 U/L (17-59); Albumin 2.7 g/dL (3.5-5.0); Alkaline Phosphatase 116 U/L (38-126); Anion Gap 3 mmol/L; Blood Urea Nitrogen 38 mg/dL (9-20); Calcium 8.2 mg/dL (8.4-10.2); Carbon Dioxide 30 mmol/L (22-30); Chloride 98 mmol/L (98-107); Glucose 101 mg/dL (74-99); Magnesium 2.6 mg/dL (1.6-2.3); Phosphorus 4.7 mg/dL (2.5-4.5); Sodium 131 mmol/L (137-145)
[2018-08-20] MEDS: HYDROcodone/APAP 5-325MG 1 EACH TAB PO PRN ×2 (04:41→09:55)
[2018-08-20] MEDS: LACTATED RINGERS 1,000 ML IV SCH (04:42)
[2018-08-20] MEDS: INSULIN ASPART 100 UNIT/ML 1 ML 10 ML VIAL SQ SCH ×4 (06:46→22:03)
[2018-08-20] MEDS: KETOROLAC 30 MG/ML 1 ML VIAL IVP SCH ×4 (06:47→23:38)
[2018-08-20] MEDS: CARVEDILOL 1.563 MG TAB PO SCH ×2 (06:47→17:45)
[2018-08-20 06:51] LABS: Glucose,Whole Blood 104 mg/dL (75-99)
[2018-08-20] MEDS: PANTOPRAZOLE 40 MG TABLET PO SCH (07:18)
[2018-08-20] MEDS: IPRATROPIUM-ALBUTEROL 3 ML NEB INHALATION SCH ×4 (08:23→19:57)
--- NOTE | 2018-08-20 08:28 | XR ---
EXAMINATION TYPE: XR chest 2V DATE OF EXAM: 08/20/2018 COMPARISON: 08/19/2018 INDICATION: Post cardiac surgery TECHNIQUE: Frontal and lateral views of the chest are obtained. FINDINGS: The heart size is enlarged. The pulmonary vasculature is normal. There is peripheral pleural thickening at the right upper lung field. Some stranding extends towards the right hilar region. Mild infiltrate is scattered through the left mid and lower lung field sterno drake wires are in the midline. Foreign body overlies left chest.. IMPRESSION: 1. Stable appearing pleural thickening or peripheral consolidation right upper lobe and scattered inf iltrates at the left base. 2. Status post right-sided chest tube removal, no pneumothorax is evident.
[2018-08-20] MEDS: ATORVASTATIN 40 MG TAB PO SCH (08:38)
[2018-08-20] MEDS: ASPIRIN 81 MG PO SCH (08:38)
[2018-08-20] MEDS: CITALOPRAM HYDROBROMIDE 10 MG TAB PO SCH (08:38)
[2018-08-20] MEDS: HEPARIN SOD,PORK IN 0.45% NACL 25,000 UNIT in 0.45% NACL 1 500ML.BAG IV SCH (09:22)
--- NOTE | 2018-08-20 10:04 | PN ---
PROGRESS NOTE Mr. Hare is in sinus rhythm with a first-degree but MO interval is better. He is doing better. He is ambulating without symptoms. He has been doing well on incentive spirometry. He is status post mitral valve replacement and 2 bypasses, one was a BINTA and one was a vein graft. He is doing well overall. The vital signs are stable, S1-S2 heard normally. Short systolic murmur noted. Lungs reveal decent air entry. Abdomen and lower extremity exam is unchanged. Patient's anticoagulation has been initiated. He is on heparin and Coumadin. PT and INR will be followed closely. MMODL / IJN: [id number] /
[2018-08-20] MEDS ORDERED: HYDROcodone/APAP 7.5-325MG 1 EACH TAB PO PRN (10:32)
[2018-08-20] MEDS ORDERED: FUROSEMIDE 10 MG/ML 4 ML VIAL IV STA (10:32)
[2018-08-20 11:50] LABS: Glucose,Whole Blood 116 mg/dL (75-99)
[2018-08-20] MEDS: HEPARIN SOD,PORK IN 0.45% NACL 25,000 UNIT in 0.45% NACL 1 250ML.BAG IV SCH (14:14)
--- NOTE | 2018-08-20 14:23 | P.PN ---
Subjective Progress Note Date: 08/20/18 Principal diagnosis: Status post mitral valve replacement and two-vessel CABG postoperative day #5 This is a 53-year-old male patient who is being seen in the intensive care unit following his mitral valve replacement surgery. The patient underwent mitral valve replacement, tissue valve, in addition to modified Wolf-Maze procedure, clipping of the appendage and 2 vessel bypass including a BINTA to RCA and SVG to OM1, and the patient is currently intubated on a mechanical ventilator in the intensive care unit. Chest x-ray shows increased vascular congestion. Orotracheal tube is in a good location. The patient has a right IJ [place] catheter in place. The patient also has a mediastinal and the left pleural chest tube. The blood gases showed a pH of 7.26 with a pCO2 of 60 and pO2 139. Based on this, I put the patient on avoidance cycle mode assist control at a rate of 20, tidal volume of 550, FiO2 is down to 60% and a PEEP of 20. Follow- up blood gases are still pending for now. Hemodynamically the patient is on no pressors. The patient's mean arterial pressures around 60 to and the patient be given IV albumin. Maintenance fluid is normal saline today to 50 mL an hour. Cardiac index is at 2.6. Pulmonary artery pressure nonelevated. Upper from the chest tube both mediastinal and pleural is a total of 130 mL since his arrival from the operating room. He is producing adequate amount of urine output. He is currently off sedation. He was given a dose of fentanyl 50 g for increased chest wall pain. His cardiac rhythm is paced at the rate of 85. Underlying cardiac rhythm is a block third-degree. On 08/16/2018 patient seen in follow-up in the intensive care unit, patient has been extubated, currently on 2 L per nasal cannula his pulse ox is 96%, afebrile , hemodynamically stable. Currently in sinus rhythm, echo with backup rate. Patient is sitting up in the chair, in no acute distress, lung sounds are clear diminished at the bases, he is working on his incentive spirometer, his ISS effort is 1500 today. PA pressures 39/19, cardiac output and index are 9.9 and 4.1 respectively. Right and mediastinal chest tube output has been 605 ML in the last 24 hours. Santiago catheter is in place, patient is nonoliguric. Her and IV infusions include LR at a rate of 50 ML per hour, and insulin is at 6 units per minute. Chest x-ray has been reviewed and showed stable scattered infiltrates, likely atelectasis. Her pain is reasonably controlled. Today's blood work showed WBC of 12.7, hemoglobin of 10.0, sodium 140 potassium is 4.9, chloride is 107, BUN is 22, creatinine 0.7. The patient was seen again today 08/17/2018 in follow-up in the intensive care unit. He is currently sitting up in a chair at the bedside. He is awake and alert in no acute distress. He denies any worsening shortness of breath, cough or congestion. His pain is well controlled. He is working well with the incentive spirometer. He is maintaining good O2 saturations in the upper 90s on 3 L/m per nasal cannula. His x-ray reveals cardiomegaly with bilateral platelike atelectasis and small effusion. Mediastinal/right pleural chest tube remains in place. He's been afebrile. Hemodynamically stable. White count 11.8. Hemoglobin 8.9. Creatinine 0.78. Remains on lactated Ringer's at 50 MLS per hour. Insulin drip at 4.5 units per hour. On 08/18/2089 seeing this patient for a follow-up. The patient has postop day # 3. He underwent mitral valve replacement. He also underwent three-vessel bypass surgery. Hemodynamically stable. He is in a sinus rhythm. Note that he also had a modified maze procedure using radiofrequency and cryoablation. The patient has no complaints. The [place] catheter has been removed. He did encounter some bleeding from the puncture site where pressure was applied and currently hemostasis is achieved. He is cardiac rhythm is sinus with a first-degree AV block. He is swallowing. He is ambulating. The patient has chest tubes in place and the patient's right-sided chest tube has drained 5 ML' s of serosanguineous drainage over the past 8 hours and 300 over the past 24 hours without evidence of any air leak. The patient is pulling approximately 1500 mL on the incentive spirometer. Pulse ox is 95% liters of oxygen by nasal cannula. Chest x-ray shows adequate expansion of both lungs. Chest tube is in good location. No pneumothorax. On 08/19/2018, patient was seen on follow-up, in the ICU, he is postoperative day #4. Patient had a mitral valve replacement and two-vessel bypass surgery. Patient is doing great, relatively asymptomatic, denies any cough no wheezing no shortness of breath, presently is on room air. Doing great with incentive spirometry, chest x-ray showed right-sided chest tube in place, minimal atelectasis at the bases especially at the left base. Patient again is relatively asymptomatic. CBC is relatively normal hemoglobin is 7.7. Basic metabolic profile is normal, renal profile is normal. Liver enzymes were noted to be slightly elevated. On 08/20/2018, patient remains in the ICU, his postoperative day #5. Patient had a mitral valve replaced and two-vessel bypass surgery. Doing great, relatively asymptomatic, remains on room air. No shortness of breath no cough no wheezing. Chest x-ray was reviewed, and most showed postoperative changes, mostly expected changes. His CBC showed a hemoglobin of 7.1. A left was normal renal profile is normal. Objective - Vital Signs Vital signs: Vital Signs Temp 97.9 F 08/20/18 12:00 Pulse 86 08/20/18 12:00 Resp 11 L 08/20/18 12:00 BP 138/78 08/20/18 12:00 Pulse Ox 89 L 08/20/18 12:00 Intake & Output 08/19/18 08/20/18 08/20/18 18:59 06:59 18:59 Intake Total 1552.830 391.326 618.72 Output Total 340 1000 400 Balance 1212.830 -608.674 218.72 Weight 127.1 kg Intake: IV 140 40 40 Lactated Ringers 1,000 ml 140 40 40 @ 20 mls/hr IV .Q24H [facility] Rx#:[id number] Intake, IV Titration 212.830 351.326 578.72 Amount Heparin Sod,Pork in 0.45% 89.0 NaCl 25,000 unit In 0.45 % NaCl 1 250ml.bag @ 18.1 UNITS/KG/HR 23 mls/hr IV .[id number] [facility] Rx#: [id number] Heparin Sod,Pork in 0.45% 212.830 351.326 489.72 NaCl 25,000 unit In 0.45 % NaCl 1 500ml.bag @ 8.13 UNITS/KG/HR 19.99 mls/hr IV .Q24H [facility] Rx#: [id number] Oral 1200 Output: Chest Tube Drainage 40 Pleural Catheter Right 40 Urine 300 1000 400 Other: Voiding Method Toilet Toilet Urinal Urinal # Voids 1 # Bowel Movements 1 ABP, PAP, CO, CI - Last Documented Arterial Blood Pressure 137/135 Pulmonary Artery Pressure 40/15 Cardiac Output 9.9 Cardiac Index 4.1 - Exam Physical Exam: Revealed a 53-year-old white male in no distress. Head: Atraumatic, normocephalic. HEENT: PERRLA, EOMI, no icterus. [Neck is supple.] [No neck masses.] [No thyromegaly.] [No JVD.] Moist mucous membranes. Throat is clear. Chest: [Clear throughout, no crackles, no rhonchi, no wheezes.] Right-sided chest tube is noted. Surgical site is clean and dry. Cardiac Exam: [Normal S1 and S2, no S3 gallop, no murmur.] Abdomen: Obese, [Soft, nontender, no megaly, no rebound, no guarding, normal bowel sounds.] Extremities: [No clubbing, no edema, no cyanosis.] Neurological Exam: [No focal neurologic deficit.] Psychiatric: Normal mood, affect and mental status examination. Skin: No rashes. - Labs CBC & Chem 7: 08/20/18 03:10 08/20/18 03:10 Labs: Abnormal Lab Results - Last 24 Hours (Table) 08/19/18 08/19/18 08/19/18 Range/Units 17:05 19:49 20:37 RBC (4.30-5.90) m/uL Hgb (13.0-17.5) gm/dL Hct (39.0-53.0) % APTT 44.9 H (22.0-30.0) sec Sodium (137-145) mmol/L BUN (9-20) mg/dL Glucose (74-99) mg/dL POC Glucose (mg/dL) 143 H 135 H (75-99) mg/dL Calcium (8.4-10.2) mg/dL Phosphorus (2.5-4.5) mg/dL Magnesium (1.6-2.3) mg/dL ALT (21-72) U/L Total Protein (6.3-8.2) g/dL Albumin (3.5-5.0) g/dL 08/20/18 08/20/18 08/20/18 Range/Units 03:10 03:10 03:10 RBC 2.37 L (4.30-5.90) m/uL Hgb 7.1 L (13.0-17.5) gm/dL Hct 21.5 L (39.0-53.0) % APTT 74.2 H (22.0-30.0) sec Sodium 131 L (137-145) mmol/L BUN 38 H (9-20) mg/dL Glucose 101 H (74-99) mg/dL POC Glucose (mg/dL) (75-99) mg/dL Calcium 8.2 L (8.4-10.2) mg/dL Phosphorus 4.7 H (2.5-4.5) mg/dL Magnesium 2.6 H (1.6-2.3) mg/dL ALT 85 H (21-72) U/L Total Protein 5.0 L (6.3-8.2) g/dL Albumin 2.7 L (3.5-5.0) g/dL 08/20/18 08/20/18 Range/Units 06:40 11:38 RBC (4.30-5.90) m/uL Hgb (13.0-17.5) gm/dL Hct (39.0-53.0) % APTT (22.0-30.0) sec Sodium (137-145) mmol/L BUN (9-20) mg/dL Glucose (74-99) mg/dL POC Glucose (mg/dL) 104 H 116 H (75-99) mg/dL Calcium (8.4-10.2) mg/dL Phosphorus (2.5-4.5) mg/dL Magnesium (1.6-2.3) mg/dL ALT (21-72) U/L Total Protein (6.3-8.2) g/dL Albumin (3.5-5.0) g/dL Assessment and Plan Assessment: Impression: 1 status post mitral valve replacement and two-vessel bypass surgery postoperative day #5 2 history of severe mitral valve regurgitation and pulmonary edema in the past. 3 history of left atrial appendage clot. 4 obstructive sleep apnea syndrome on CPAP at night. 5 multiple comorbidities including obesity, hypertension, osteoarthritis, diverticular disease, and known history of coronary artery disease with previous stenting of RCA. Recommendation: Continue incentive spirometry, chest tubes were removed, patient could be transferred to a monitor bed on selective once a bed becomes available. In the meantime continue incentive spirometry, ambulation, and bronchodilators. We'll continue to follow. Time with Patient: Less than 30
[2018-08-20] MEDS: HYDROcodone/APAP 7.5-325MG 1 EACH TAB PO PRN ×2 (14:47→20:18)
--- NOTE | 2018-08-20 15:23 | P.PN ---
Subjective Progress Note Date: 08/20/18 Principal diagnosis: Mitral regurgitation. Mitral stenosis. Paroxysmal atrial fibrillation. Coronary artery disease. History of cardioversions, hypertension, hyperlipidemia, obstructive sleep apnea, previous tobacco dependence, mild COPD with preoperative FEV1 68% of predicted, daily EtOH use, GERD, obesity, and family history of premature coronary artery disease with brother diagnosed at 34 and father diagnosed at 42. POD #5 mitral valve replacement with a #31/33 On-X mechanical mitral valve. Coronary bypass grafting 2 with a right internal mammary artery to the right coronary artery, reverse saphenous vein graft off the aorta to the second obtuse marginal artery. Endovascular vein harvest of the left greater saphenous vein. Clip ligation of the left atrial appendage with a #40 mm AtriClip. Complete left-sided maze procedure using radiofrequency and cryoablation. Intraoperative transesophageal echocardiogram. Postoperative acute blood loss anemia, expected post surgical condition secondary to hemodilution and cardiopulmonary bypass pump. The patient is currently sitting up in the chair in no acute distress. States postoperative pain is mostly controlled on current medication regimen he does continue to have pain at his right side in the chest tube area despite chest tube removal, denies shortness of breath. Currently hemodynamically stable. Remains in sinus rhythm with first-degree AV block. No new complaints. Objective - Vital Signs Vital signs: Vital Signs Temp 97.9 F 08/20/18 12:00 Pulse 84 08/20/18 13:00 Resp 19 08/20/18 13:00 BP 101/66 08/20/18 14:00 Pulse Ox 93 L 08/20/18 13:00 Intake & Output 08/19/18 08/20/18 08/20/18 18:59 06:59 18:59 Intake Total 1552.830 391.326 661.72 Output Total 340 1000 700 Balance 1212.830 -608.674 -38.28 Weight 127.1 kg Intake: IV 140 40 60 Lactated Ringers 1,000 ml 140 40 60 @ 20 mls/hr IV .Q24H [facility] Rx#:[id number] Intake, IV Titration 212.830 351.326 601.72 Amount Heparin Sod,Pork in 0.45% 112.0 NaCl 25,000 unit In 0.45 % NaCl 1 250ml.bag @ 18.1 UNITS/KG/HR 23 mls/hr IV .[id number] [facility] Rx#: [id number] Heparin Sod,Pork in 0.45% 212.830 351.326 489.72 NaCl 25,000 unit In 0.45 % NaCl 1 500ml.bag @ 8.13 UNITS/KG/HR 19.99 mls/hr IV .Q24H [facility] Rx#: [id number] Oral 1200 Output: Chest Tube Drainage 40 Pleural Catheter Right 40 Urine 300 1000 700 Other: Voiding Method Toilet Toilet Urinal Urinal # Voids 1 # Bowel Movements 1 ABP, PAP, CO, CI - Last Documented Arterial Blood Pressure 137/135 Pulmonary Artery Pressure 40/15 Cardiac Output 9.9 Cardiac Index 4.1 - Constitutional General appearance: Present: cooperative, no acute distress, obese - Respiratory Details: Lungs sounds diminished bilaterally. Respirations even, nonlabored. Currently on room air with oxygen saturation 93%. Able to achieve 1500 mL on his incentive spirometry. - Cardiovascular Details: S1, S2 present. Positive valvular click. Regular rate and rhythm, sinus rhythm with first-degree AV block on telemetry. Sternum stable. Palpable peripheral pulses bilaterally. No edema present. No calf pain or tenderness noted. Heart hugger in place with patient demonstrating appropriate use. Antiembolism stockings, SCDs present. - Gastrointestinal Gastrointestinal Comment(s): Abdomen soft, nontender, nondistended. Active bowel sounds present 4 quadrants. Tolerating diet. Positive bowel movement. - Genitourinary Genitourinary Comment(s): Patient continues to void clear, yellow urine. Output overnight 625 mL. - Integumentary Integumentary Comment(s): Skin is warm and dry with evidence of good perfusion. Anterior chest incision well approximated and covered with dry intact dressing. Left lower extremity EVH site well approximated. - Neurologic Neurologic: Present: CNII-XII intact - Musculoskeletal Musculoskeletal: Present: gait normal, strength equal bilaterally - Psychiatric Psychiatric: Present: A&O x's 3, appropriate affect, intact judgment & insight - Allied health notes Allied health notes reviewed: nursing - Labs CBC & Chem 7: 08/20/18 03:10 08/20/18 03:10 Labs: Abnormal Lab Results - Last 24 Hours (Table) 08/19/18 08/19/18 08/19/18 Range/Units 17:05 19:49 20:37 RBC (4.30-5.90) m/uL Hgb (13.0-17.5) gm/dL Hct (39.0-53.0) % APTT 44.9 H (22.0-30.0) sec Sodium (137-145) mmol/L BUN (9-20) mg/dL Glucose (74-99) mg/dL POC Glucose (mg/dL) 143 H 135 H (75-99) mg/dL Calcium (8.4-10.2) mg/dL Phosphorus (2.5-4.5) mg/dL Magnesium (1.6-2.3) mg/dL ALT (21-72) U/L Total Protein (6.3-8.2) g/dL Albumin (3.5-5.0) g/dL 08/20/18 08/20/18 08/20/18 Range/Units 03:10 03:10 03:10 RBC 2.37 L (4.30-5.90) m/uL Hgb 7.1 L (13.0-17.5) gm/dL Hct 21.5 L (39.0-53.0) % APTT 74.2 H (22.0-30.0) sec Sodium 131 L (137-145) mmol/L BUN 38 H (9-20) mg/dL Glucose 101 H (74-99) mg/dL POC Glucose (mg/dL) (75-99) mg/dL Calcium 8.2 L (8.4-10.2) mg/dL Phosphorus 4.7 H (2.5-4.5) mg/dL Magnesium 2.6 H (1.6-2.3) mg/dL ALT 85 H (21-72) U/L Total Protein 5.0 L (6.3-8.2) g/dL Albumin 2.7 L (3.5-5.0) g/dL 08/20/18 08/20/18 Range/Units 06:40 11:38 RBC (4.30-5.90) m/uL Hgb (13.0-17.5) gm/dL Hct (39.0-53.0) % APTT (22.0-30.0) sec Sodium (137-145) mmol/L BUN (9-20) mg/dL Glucose (74-99) mg/dL POC Glucose (mg/dL) 104 H 116 H (75-99) mg/dL Calcium (8.4-10.2) mg/dL Phosphorus (2.5-4.5) mg/dL Magnesium (1.6-2.3) mg/dL ALT (21-72) U/L Total Protein (6.3-8.2) g/dL Albumin (3.5-5.0) g/dL - Imaging and Cardiology Chest x-ray: report reviewed, image reviewed Assessment and Plan (1) Mitral regurgitation Current Visit: Yes Status: Chronic Code(s): I34.0 - NONRHEUMATIC MITRAL ( VALVE) INSUFFICIENCY SNOMED Code(s): 13375331 (2) Mitral stenosis Current Visit: Yes Status: Chronic Code(s): I05.0 - RHEUMATIC MITRAL STENOSIS SNOMED Code(s): 92286981 (3) Paroxysmal atrial fibrillation Current Visit: No Status: Resolved Code(s): I48.0 - PAROXYSMAL ATRIAL FIBRILLATION SNOMED Code(s): 418281841 (4) Sleep apnea Current Visit: Yes Status: Chronic Code(s): G47.30 - SLEEP APNEA, UNSPECIFIED SNOMED Code(s): 82228210 (5) COPD (chronic obstructive pulmonary disease) Current Visit: Yes Status: Chronic Code(s): J44.9 - CHRONIC OBSTRUCTIVE PULMONARY DISEASE, UNSPECIFIED SNOMED Code(s): 87063546 (6) Status post mitral valve repair Current Visit: Yes Status: Acute Code(s): Z98.890 - OTHER SPECIFIED POSTPROCEDURAL STATES SNOMED Code(s): 600398003 (7) CAD (coronary artery disease) Current Visit: Yes Status: Chronic Code(s): I25.10 - ATHSCL HEART DISEASE OF [place] CORONARY ARTERY W/O ANG PCTRS SNOMED Code(s): 92292894 (8) Former smoker Current Visit: No Status: Resolved Code(s): Z87.891 - PERSONAL HISTORY OF NICOTINE DEPENDENCE SNOMED Code(s): 2028714 (9) Hypertension Current Visit: Yes Status: Chronic Code(s): I10 - ESSENTIAL (PRIMARY) HYPERTENSION SNOMED Code(s): 69498457 (10) Alcohol abuse Current Visit: Yes Status: Chronic Code(s): F10.10 - ALCOHOL ABUSE, UNCOMPLICATED SNOMED Code(s): 08416244 (11) GERD (gastroesophageal reflux disease) Current Visit: Yes Status: Chronic Code(s): K21.9 - GASTRO-ESOPHAGEAL REFLUX DISEASE WITHOUT ESOPHAGITIS SNOMED Code(s): 955595308 (12) Obesity (BMI 30-39.9) Current Visit: Yes Status: Chronic Code(s): E66.9 - OBESITY, UNSPECIFIED SNOMED Code(s): 982469220 (13) Family history of premature CAD Current Visit: Yes Status: Chronic Code(s): Z82.49 - FAMILY HX OF [place] HEART DIS AND OTH DIS OF THE CIRC SYS SNOMED Code(s): 802923337 Plan: 1. Continue low-dose aspirin aspirin, statin, Coreg. 2. Will Coumadin therapy daily based on daily PT/INR. Goal INR 3.0. Will discontinue heparin drip once Coumadin is therapeutic. 3. Encourage incentive spirometry use 10 times every hour while awake. 4. We'll give 40 mg IV Lasix today. 5. Increase activity, ambulate as tolerated. PT/OT/cardiac rehab following. 6. Will monitor daily labs and x-rays. Electrolyte replacement per protocol. 7. Insulin per primary care service. 8. Pain control with current medication regimen. [place] dose increased for better pain control. 9. GI prophylaxis with Protonix. DVT prophylaxis with subcu heparin, SCDs. 10. Bronchodilators per pulmonology. 11. Transfer orders for [address] [place] [address] cardiac stepdown unit. May transfer when bed available. 12. More recommendations to follow. Time with Patient: Greater than 30
--- NOTE | 2018-08-20 16:39 | P.PN ---
Subjective Principal diagnosis: Status post mitral valve repair. This is a continue proximal 53-year-old white male with history of COPD persistent atrial fibrillation who is now status post coronary bypass graft with mitral valve replacement with the patient seems to be stable but has intermittent atrial fibrillation with exertion. Patient state no voiding difficulties. No significant nausea, vomiting or diarrhea stated. Objective - Vital Signs Vital signs: Vital Signs Temp 97.9 F 08/20/18 12:00 Pulse 80 08/20/18 16:07 Resp 19 08/20/18 13:00 BP 101/66 08/20/18 14:00 Pulse Ox 93 L 08/20/18 13:00 Intake & Output 08/19/18 08/20/18 08/20/18 18:59 06:59 18:59 Intake Total 1552.830 391.326 661.72 Output Total 340 1000 700 Balance 1212.830 -608.674 -38.28 Weight 127.1 kg Intake: IV 140 40 60 Lactated Ringers 1,000 ml 140 40 60 @ 20 mls/hr IV .Q24H [facility] Rx#:[id number] Intake, IV Titration 212.830 351.326 601.72 Amount Heparin Sod,Pork in 0.45% 112.0 NaCl 25,000 unit In 0.45 % NaCl 1 250ml.bag @ 18.1 UNITS/KG/HR 23 mls/hr IV .[id number] [facility] Rx#: [id number] Heparin Sod,Pork in 0.45% 212.830 351.326 489.72 NaCl 25,000 unit In 0.45 % NaCl 1 500ml.bag @ 8.13 UNITS/KG/HR 19.99 mls/hr IV .Q24H [facility] Rx#: [id number] Oral 1200 Output: Chest Tube Drainage 40 Pleural Catheter Right 40 Urine 300 1000 700 Other: Voiding Method Toilet Toilet Urinal Urinal # Voids 1 # Bowel Movements 1 ABP, PAP, CO, CI - Last Documented Arterial Blood Pressure 137/135 Pulmonary Artery Pressure 40/15 Cardiac Output 9.9 Cardiac Index 4.1 - Constitutional General appearance: Present: obese - EENT Eyes: Absent: abnormal pupil - Neck Neck: Absent: lymphadenopathy - Respiratory Respiratory: bilateral: diminished - Cardiovascular Rhythm: regular Heart sounds: normal: S1, S2 Abnormal Heart Sounds: Absent: S3 Gallop - Gastrointestinal General gastrointestinal: Present: soft. Absent: tenderness - Integumentary Integumentary: Absent: cellulitis - Neurologic Neurologic: Present: CNII-XII intact - Labs CBC & Chem 7: 08/20/18 03:10 08/20/18 03:10 Labs: Abnormal Lab Results - Last 24 Hours (Table) 08/19/18 08/19/18 08/19/18 Range/Units 17:05 19:49 20:37 RBC (4.30-5.90) m/uL Hgb (13.0-17.5) gm/dL Hct (39.0-53.0) % APTT 44.9 H (22.0-30.0) sec Sodium (137-145) mmol/L BUN (9-20) mg/dL Glucose (74-99) mg/dL POC Glucose (mg/dL) 143 H 135 H (75-99) mg/dL Calcium (8.4-10.2) mg/dL Phosphorus (2.5-4.5) mg/dL Magnesium (1.6-2.3) mg/dL ALT (21-72) U/L Total Protein (6.3-8.2) g/dL Albumin (3.5-5.0) g/dL 08/20/18 08/20/18 08/20/18 Range/Units 03:10 03:10 03:10 RBC 2.37 L (4.30-5.90) m/uL Hgb 7.1 L (13.0-17.5) gm/dL Hct 21.5 L (39.0-53.0) % APTT 74.2 H (22.0-30.0) sec Sodium 131 L (137-145) mmol/L BUN 38 H (9-20) mg/dL Glucose 101 H (74-99) mg/dL POC Glucose (mg/dL) (75-99) mg/dL Calcium 8.2 L (8.4-10.2) mg/dL Phosphorus 4.7 H (2.5-4.5) mg/dL Magnesium 2.6 H (1.6-2.3) mg/dL ALT 85 H (21-72) U/L Total Protein 5.0 L (6.3-8.2) g/dL Albumin 2.7 L (3.5-5.0) g/dL 08/20/18 08/20/18 Range/Units 06:40 11:38 RBC (4.30-5.90) m/uL Hgb (13.0-17.5) gm/dL Hct (39.0-53.0) % APTT (22.0-30.0) sec Sodium (137-145) mmol/L BUN (9-20) mg/dL Glucose (74-99) mg/dL POC Glucose (mg/dL) 104 H 116 H (75-99) mg/dL Calcium (8.4-10.2) mg/dL Phosphorus (2.5-4.5) mg/dL Magnesium (1.6-2.3) mg/dL ALT (21-72) U/L Total Protein (6.3-8.2) g/dL Albumin (3.5-5.0) g/dL Assessment and Plan (1) Status post mitral valve repair Current Visit: Yes Status: Acute Code(s): Z98.890 - OTHER SPECIFIED POSTPROCEDURAL STATES SNOMED Code(s): 471686673 (2) Atrial fibrillation Current Visit: No Status: Acute Code(s): I48.91 - UNSPECIFIED ATRIAL FIBRILLATION SNOMED Code(s): 26849402 (3) CAD (coronary artery disease) Current Visit: Yes Status: Chronic Code(s): I25.10 - ATHSCL HEART DISEASE OF [place] CORONARY ARTERY W/O ANG PCTRS SNOMED Code(s): 77049810 (4) Former smoker Current Visit: No Status: Resolved Code(s): Z87.891 - PERSONAL HISTORY OF NICOTINE DEPENDENCE SNOMED Code(s): 9158686 Plan: Continue current regimen of treatment. Transition to general once cleared by consultants. Her preop check CBC and CMP in a.m. Her preop see orders otherwise.
[2018-08-20 17:27] LABS: Glucose,Whole Blood 140 mg/dL (75-99)
[2018-08-20] MEDS ORDERED: WARFARIN 5 MG TAB PO ONE (18:00)
[2018-08-20 20:05] LABS: Glucose,Whole Blood 130 mg/dL (75-99)
[2018-08-20] MEDS: SENNOSIDES-DOCUSATE SODIUM 1 EACH TAB PO SCH (20:18)
[2018-08-20 21:05] LABS: Glucose,Whole Blood 137 mg/dL (75-99)
[2018-08-21] MEDS: HEPARIN SOD,PORK IN 0.45% NACL 25,000 UNIT in 0.45% NACL 1 250ML.BAG IV SCH ×3 (01:07→22:45)
[2018-08-21 05:20] LABS: HCT 22.4 % (39.0-53.0); HGB 7.2 gm/dL (13.0-17.5); MCH 29.3 pg (25.0-35.0); MCHC 32.1 g/dL (31.0-37.0); MCV 91.1 fL (80.0-100.0); Mean Platelet Volume 7.2; Platelet Count 279 k/uL (150-450); RBC 2.46 m/uL (4.30-5.90); RDW 14.6 % (11.5-15.5); WBC 8.9 k/uL (3.8-10.6)
[2018-08-21] MEDS: KETOROLAC 30 MG/ML 1 ML VIAL IVP SCH (05:30)
[2018-08-21 05:44] LABS: ALT 84 U/L (21-72); AST 52 U/L (17-59); Albumin 2.9 g/dL (3.5-5.0); Alkaline Phosphatase 107 U/L (38-126); Anion Gap 8 mmol/L; Blood Urea Nitrogen 36 mg/dL (9-20); Calcium 8.6 mg/dL (8.4-10.2); Carbon Dioxide 25 mmol/L (22-30); Chloride 99 mmol/L (98-107); Glucose 103 mg/dL (74-99); Magnesium 2.4 mg/dL (1.6-2.3); Potassium 4.7 mmol/L (3.5-5.1); Sodium 132 mmol/L (137-145); Total Bilirubin 0.9 mg/dL (0.2-1.3); Total Protein 5.3 g/dL (6.3-8.2)
[2018-08-21 05:52] LABS: INR 1.3 (<1.2); Partial Thromboplastin Time 47.9 sec (22.0-30.0); Prothrombin Time 13.1 sec (9.0-12.0)
[2018-08-21 07:16] LABS: Glucose,Whole Blood 109 mg/dL (75-99)
[2018-08-21] MEDS: IPRATROPIUM-ALBUTEROL 3 ML NEB INHALATION SCH ×4 (07:31→20:32)
--- NOTE | 2018-08-21 08:24 | P.PN ---
Subjective Principal diagnosis: Status post mitral valve repair. This continue progress on a 53-year-old white male with history of COPD H fibrillation who is now here for CABG and postoperative for mitral valve replacement secondary to mitral valve regurgitation. The patient is doing quite well. The patient is a sinus rhythm and has been fairly controlled. No new pains. No sniffing nausea or vomiting. Objective - Vital Signs Vital signs: Vital Signs Temp 98.2 F 08/21/18 04:00 Pulse 80 08/21/18 07:43 Resp 9 L 08/21/18 04:00 BP 141/75 08/21/18 04:00 Pulse Ox 94 L 08/21/18 00:00 Intake & Output 08/20/18 08/21/18 08/21/18 18:59 06:59 18:59 Intake Total 661.72 546 Output Total 700 150 Balance -38.28 396 Weight 126 kg Intake: IV 60 120 Lactated Ringers 1,000 ml 60 120 @ 20 mls/hr IV .Q24H [facility] Rx#:[id number] Intake, IV Titration 601.72 426 Amount Heparin Sod,Pork in 0.45% 112.0 426 NaCl 25,000 unit In 0.45 % NaCl 1 250ml.bag @ 18.1 UNITS/KG/HR 23 mls/hr IV .[id number] [facility] Rx#: [id number] Heparin Sod,Pork in 0.45% 489.72 NaCl 25,000 unit In 0.45 % NaCl 1 500ml.bag @ 8.13 UNITS/KG/HR 19.99 mls/hr IV .Q24H [facility] Rx#: [id number] Output: Urine 700 150 Other: Voiding Method Toilet Toilet Urinal Urinal ABP, PAP, CO, CI - Last Documented Arterial Blood Pressure 137/135 Pulmonary Artery Pressure 40/15 Cardiac Output 9.9 Cardiac Index 4.1 - Constitutional General appearance: Present: average body habitus - EENT Eyes: Absent: abnormal pupil - Cardiovascular Rhythm: regular Heart sounds: normal: S1, S2 Abnormal Heart Sounds: Absent: S3 Gallop - Gastrointestinal General gastrointestinal: Present: soft. Absent: tenderness - Psychiatric Psychiatric: Present: A&O x's 3. Absent: appropriate affect - Labs CBC & Chem 7: 08/21/18 04:38 12/12/18 04:38 Labs: Abnormal Lab Results - Last 24 Hours (Table) 08/20/18 08/20/18 08/20/18 Range/Units 11:38 17:15 19:54 RBC (4.30-5.90) m/uL Hgb (13.0-17.5) gm/dL Hct (39.0-53.0) % PT (9.0-12.0) sec INR (<1.2) APTT (22.0-30.0) sec Sodium (137-145) mmol/L BUN (9-20) mg/dL Glucose (74-99) mg/dL POC Glucose (mg/dL) 116 H 140 H 130 H (75-99) mg/dL Magnesium (1.6-2.3) mg/dL ALT (21-72) U/L Total Protein (6.3-8.2) g/dL Albumin (3.5-5.0) g/dL 08/20/18 08/21/18 08/21/18 Range/Units 20:53 04:38 04:38 RBC 2.46 L (4.30-5.90) m/uL Hgb 7.2 L (13.0-17.5) gm/dL Hct 22.4 L (39.0-53.0) % PT 13.1 H (9.0-12.0) sec INR 1.3 H (<1.2) APTT 47.9 H (22.0-30.0) sec Sodium (137-145) mmol/L BUN (9-20) mg/dL Glucose (74-99) mg/dL POC Glucose (mg/dL) 137 H (75-99) mg/dL Magnesium (1.6-2.3) mg/dL ALT (21-72) U/L Total Protein (6.3-8.2) g/dL Albumin (3.5-5.0) g/dL 08/21/18 08/21/18 Range/Units 04:38 07:04 RBC (4.30-5.90) m/uL Hgb (13.0-17.5) gm/dL Hct (39.0-53.0) % PT (9.0-12.0) sec INR (<1.2) APTT (22.0-30.0) sec Sodium 132 L (137-145) mmol/L BUN 36 H (9-20) mg/dL Glucose 103 H (74-99) mg/dL POC Glucose (mg/dL) 109 H (75-99) mg/dL Magnesium 2.4 H (1.6-2.3) mg/dL ALT 84 H (21-72) U/L Total Protein 5.3 L (6.3-8.2) g/dL Albumin 2.9 L (3.5-5.0) g/dL Assessment and Plan (1) Status post mitral valve repair Current Visit: Yes Status: Acute Code(s): Z98.890 - OTHER SPECIFIED POSTPROCEDURAL STATES SNOMED Code(s): 583653825 (2) Atrial fibrillation Current Visit: No Status: Acute Code(s): I48.91 - UNSPECIFIED ATRIAL FIBRILLATION SNOMED Code(s): 81350860 (3) CAD (coronary artery disease) Current Visit: Yes Status: Chronic Code(s): I25.10 - ATHSCL HEART DISEASE OF [place] CORONARY ARTERY W/O ANG PCTRS SNOMED Code(s): 77237833 (4) Former smoker Current Visit: No Status: Resolved Code(s): Z87.891 - PERSONAL HISTORY OF NICOTINE DEPENDENCE SNOMED Code(s): 2741384 Plan: Continue current regimen of treatment. Anticipate discharge in the next 24-48 hours and cleared by thoracic surgery. Prognosis is improving. Atrial fibrillation has been resolving since surgery. We will continue to follow closely. See orders otherwise.
[2018-08-21 08:28] LABS: Band Neutrophils % 1 %; Basophils # (M) 0.09 k/uL (0-0.2); Eosinophils # (M) 0.53 k/uL (0-0.7); Lymphocytes # (M) 1.25 k/uL (1.0-4.8); Metamyelocytes # (M) 0.09 k/uL (0); Metamyelocytes % 1 %; Myelocytes # (M) 0.09 k/uL (0); Myelocytes % 1 %; Neutrophils % (M) 69 %; Nucleated Red Blood Cells 0 /100 WBC (0-0); Total Cells Counted 200
[2018-08-21 08:30] LABS: Polychromasia Present
--- NOTE | 2018-08-21 08:50 | XR ---
EXAMINATION TYPE: XR chest 1V portable DATE OF EXAM: 08/21/2018 COMPARISON: 08/20/2018 HISTORY: Status post cardiac surgery. Follow-up exam. TECHNIQUE: Single frontal view of the chest is obtained. FINDINGS: Right upper lung pleural thickening and airspace disease is redemonstrated. Heart is marke dly enlarged. Curvilinear left basilar atelectasis is noted. Median sternotomy wires and aortic closu re device are noted. Osseous structures are grossly intact. Blunting of the costophrenic angles likel y relates to trace pleural effusions. No pneumothorax is seen. IMPRESSION: Scattered subsegmental atelectasis, trace pleural effusions and persistent right upper l frida pleural-based density.
[2018-08-21] MEDS: ASPIRIN 81 MG PO SCH (09:54)
[2018-08-21] MEDS: HYDROcodone/APAP 7.5-325MG 1 EACH TAB PO PRN ×4 (09:54→22:42)
[2018-08-21] MEDS: ATORVASTATIN 40 MG TAB PO SCH (09:54)
[2018-08-21] MEDS: CITALOPRAM HYDROBROMIDE 20 MG TAB PO SCH (09:54)
[2018-08-21] MEDS: PANTOPRAZOLE 40 MG TABLET PO SCH (09:54)
[2018-08-21] MEDS: CARVEDILOL 1.563 MG TAB PO SCH ×2 (09:55→17:32)
[2018-08-21] MEDS: INSULIN ASPART 100 UNIT/ML 1 ML 10 ML VIAL SQ SCH ×4 (09:58→22:36)
[2018-08-21] MEDS ORDERED: FUROSEMIDE 10 MG/ML 4 ML VIAL IV STA (10:13)
[2018-08-21] MEDS: LACTATED RINGERS 1,000 ML IV SCH (10:18)
[2018-08-21 12:13] LABS: Glucose,Whole Blood 101 mg/dL (75-99)
--- NOTE | 2018-08-21 13:27 | P.PN ---
Subjective Progress Note Date: 08/21/18 Principal diagnosis: Status post mitral valve replacement and two-vessel CABG postoperative day #6 This is a 53-year-old male patient who is being seen in the intensive care unit following his mitral valve replacement surgery. The patient underwent mitral valve replacement, tissue valve, in addition to modified Wolf-Maze procedure, clipping of the appendage and 2 vessel bypass including a BINTA to RCA and SVG to OM1, and the patient is currently intubated on a mechanical ventilator in the intensive care unit. Chest x-ray shows increased vascular congestion. Orotracheal tube is in a good location. The patient has a right IJ Reserve-Noman catheter in place. The patient also has a mediastinal and the left pleural chest tube. The blood gases showed a pH of 7.26 with a pCO2 of 60 and pO2 139. Based on this, I put the patient on avoidance cycle mode assist control at a rate of 20, tidal volume of 550, FiO2 is down to 60% and a PEEP of 20. Follow- up blood gases are still pending for now. Hemodynamically the patient is on no pressors. The patient's mean arterial pressures around 60 to and the patient be given IV albumin. Maintenance fluid is normal saline today to 50 mL an hour. Cardiac index is at 2.6. Pulmonary artery pressure nonelevated. Upper from the chest tube both mediastinal and pleural is a total of 130 mL since his arrival from the operating room. He is producing adequate amount of urine output. He is currently off sedation. He was given a dose of fentanyl 50 g for increased chest wall pain. His cardiac rhythm is paced at the rate of 85. Underlying cardiac rhythm is a block third-degree. On 08/16/2018 patient seen in follow-up in the intensive care unit, patient has been extubated, currently on 2 L per nasal cannula his pulse ox is 96%, afebrile , hemodynamically stable. Currently in sinus rhythm, echo with backup rate. Patient is sitting up in the chair, in no acute distress, lung sounds are clear diminished at the bases, he is working on his incentive spirometer, his ISS effort is 1500 today. PA pressures 39/19, cardiac output and index are 9.9 and 4.1 respectively. Right and mediastinal chest tube output has been 605 ML in the last 24 hours. Santiago catheter is in place, patient is nonoliguric. Her and IV infusions include LR at a rate of 50 ML per hour, and insulin is at 6 units per minute. Chest x-ray has been reviewed and showed stable scattered infiltrates, likely atelectasis. Her pain is reasonably controlled. Today's blood work showed WBC of 12.7, hemoglobin of 10.0, sodium 140 potassium is 4.9, chloride is 107, BUN is 22, creatinine 0.7. The patient was seen again today 08/17/2018 in follow-up in the intensive care unit. He is currently sitting up in a chair at the bedside. He is awake and alert in no acute distress. He denies any worsening shortness of breath, cough or congestion. His pain is well controlled. He is working well with the incentive spirometer. He is maintaining good O2 saturations in the upper 90s on 3 L/m per nasal cannula. His x-ray reveals cardiomegaly with bilateral platelike atelectasis and small effusion. Mediastinal/right pleural chest tube remains in place. He's been afebrile. Hemodynamically stable. White count 11.8. Hemoglobin 8.9. Creatinine 0.78. Remains on lactated Ringer's at 50 MLS per hour. Insulin drip at 4.5 units per hour. On 08/18/2089 seeing this patient for a follow-up. The patient has postop day # 3. He underwent mitral valve replacement. He also underwent three-vessel bypass surgery. Hemodynamically stable. He is in a sinus rhythm. Note that he also had a modified maze procedure using radiofrequency and cryoablation. The patient has no complaints. The Reserve-Noman catheter has been removed. He did encounter some bleeding from the puncture site where pressure was applied and currently hemostasis is achieved. He is cardiac rhythm is sinus with a first-degree AV block. He is swallowing. He is ambulating. The patient has chest tubes in place and the patient's right-sided chest tube has drained 5 ML' s of serosanguineous drainage over the past 8 hours and 300 over the past 24 hours without evidence of any air leak. The patient is pulling approximately 1500 mL on the incentive spirometer. Pulse ox is 95% liters of oxygen by nasal cannula. Chest x-ray shows adequate expansion of both lungs. Chest tube is in good location. No pneumothorax. On 08/19/2018, patient was seen on follow-up, in the ICU, he is postoperative day #4. Patient had a mitral valve replacement and two-vessel bypass surgery. Patient is doing great, relatively asymptomatic, denies any cough no wheezing no shortness of breath, presently is on room air. Doing great with incentive spirometry, chest x-ray showed right-sided chest tube in place, minimal atelectasis at the bases especially at the left base. Patient again is relatively asymptomatic. CBC is relatively normal hemoglobin is 7.7. Basic metabolic profile is normal, renal profile is normal. Liver enzymes were noted to be slightly elevated. On 08/20/2018, patient remains in the ICU, his postoperative day #5. Patient had a mitral valve replaced and two-vessel bypass surgery. Doing great, relatively asymptomatic, remains on room air. No shortness of breath no cough no wheezing. Chest x-ray was reviewed, and most showed postoperative changes, mostly expected changes. His CBC showed a hemoglobin of 7.1. A left was normal renal profile is normal. Reevaluated today on 08/21/2018, patient remains in the ICU, he is postoperative day #6. Patient is doing well, already ambulating in the hallway in the ICU. No cough no wheezing no shortness of breath, no chest pain. Chest x-ray showed subsegmental atelectasis, right upper lobe pleural-based density Which is relatively new, and was not present on previous x-rays prior to his surgery. It is most likely a fluid collection in that area, and will likely resolve with time. Objective - Vital Signs Vital signs: Vital Signs Temp 97.6 F 08/21/18 12:00 Pulse 76 08/21/18 12:00 Resp 18 08/21/18 12:00 BP 109/74 08/21/18 12:00 Pulse Ox 93 L 08/21/18 12:00 Intake & Output 08/20/18 08/21/18 08/21/18 18:59 06:59 18:59 Intake Total 661.72 546 257.35 Output Total 700 150 850 Balance -38.28 396 -592.65 Weight 126 kg Intake: IV 60 120 40 Lactated Ringers 1,000 ml 60 120 40 @ 20 mls/hr IV .Q24H [facility] Rx#:[id number] Intake, IV Titration 601.72 426 217.35 Amount Heparin Sod,Pork in 0.45% 112.0 426 217.35 NaCl 25,000 unit In 0.45 % NaCl 1 250ml.bag @ 18.1 UNITS/KG/HR 23 mls/hr IV .[id number] [facility] Rx#: [id number] Heparin Sod,Pork in 0.45% 489.72 NaCl 25,000 unit In 0.45 % NaCl 1 500ml.bag @ 8.13 UNITS/KG/HR 19.99 mls/hr IV .Q24H [facility] Rx#: [id number] Output: Urine 700 150 850 Other: Voiding Method Toilet Toilet Toilet Urinal Urinal Urinal ABP, PAP, CO, CI - Last Documented Arterial Blood Pressure 137/135 Pulmonary Artery Pressure 40/15 Cardiac Output 9.9 Cardiac Index 4.1 - Exam Physical Exam: Revealed a 53-year-old white male in no distress. Head: Atraumatic, normocephalic. HEENT: PERRLA, EOMI, no icterus. [Neck is supple.] [No neck masses.] [No thyromegaly.] [No JVD.] Moist mucous membranes. Throat is clear. Chest: [Clear throughout, no crackles, no rhonchi, no wheezes.] Surgical site is clean and dry. Cardiac Exam: [Normal S1 and S2, no S3 gallop, no murmur.] Abdomen: Obese, [Soft, nontender, no megaly, no rebound, no guarding, normal bowel sounds.] Extremities: [No clubbing, no edema, no cyanosis.] Neurological Exam: [No focal neurologic deficit.] Psychiatric: Normal mood, affect and mental status examination. Skin: No rashes. - Labs CBC & Chem 7: 08/21/18 04:38 08/21/18 04:38 Labs: Abnormal Lab Results - Last 24 Hours (Table) 08/20/18 08/20/18 08/20/18 Range/Units 17:15 19:54 20:53 RBC (4.30-5.90) m/uL Hgb (13.0-17.5) gm/dL Hct (39.0-53.0) % Metamyelocytes # (Man) (0) k/uL Myelocytes # (Manual) (0) k/uL PT (9.0-12.0) sec INR (<1.2) APTT (22.0-30.0) sec Sodium (137-145) mmol/L BUN (9-20) mg/dL Glucose (74-99) mg/dL POC Glucose (mg/dL) 140 H 130 H 137 H (75-99) mg/dL Magnesium (1.6-2.3) mg/dL ALT (21-72) U/L Total Protein (6.3-8.2) g/dL Albumin (3.5-5.0) g/dL 08/21/18 08/21/18 08/21/18 Range/Units 04:38 04:38 04:38 RBC 2.46 L (4.30-5.90) m/uL Hgb 7.2 L (13.0-17.5) gm/dL Hct 22.4 L (39.0-53.0) % Metamyelocytes # (Man) 0.09 H (0) k/uL Myelocytes # (Manual) 0.09 H (0) k/uL PT 13.1 H (9.0-12.0) sec INR 1.3 H (<1.2) APTT 47.9 H (22.0-30.0) sec Sodium 132 L (137-145) mmol/L BUN 36 H (9-20) mg/dL Glucose 103 H (74-99) mg/dL POC Glucose (mg/dL) (75-99) mg/dL Magnesium 2.4 H (1.6-2.3) mg/dL ALT 84 H (21-72) U/L Total Protein 5.3 L (6.3-8.2) g/dL Albumin 2.9 L (3.5-5.0) g/dL 08/21/18 08/21/18 Range/Units 07:04 12:02 RBC (4.30-5.90) m/uL Hgb (13.0-17.5) gm/dL Hct (39.0-53.0) % Metamyelocytes # (Man) (0) k/uL Myelocytes # (Manual) (0) k/uL PT (9.0-12.0) sec INR (<1.2) APTT (22.0-30.0) sec Sodium (137-145) mmol/L BUN (9-20) mg/dL Glucose (74-99) mg/dL POC Glucose (mg/dL) 109 H 101 H (75-99) mg/dL Magnesium (1.6-2.3) mg/dL ALT (21-72) U/L Total Protein (6.3-8.2) g/dL Albumin (3.5-5.0) g/dL Assessment and Plan Assessment: Impression: 1 status post mitral valve replacement and two-vessel bypass surgery postoperative day #6 2 history of severe mitral valve regurgitation and pulmonary edema in the past. 3 history of left atrial appendage clot. 4 obstructive sleep apnea syndrome on CPAP at night. 5 multiple comorbidities including obesity, hypertension, osteoarthritis, diverticular disease, and known history of coronary artery disease with previous stenting of RCA. Recommendation: Continue incentive spirometry, ambulation, consider discharge planning once he is cleared by cardiac surgery. Patient would like to be discharged home rather than going to rehab. Will need outpatient follow-up on his pleural-based density noted on the x-rays since his surgery from day 1. Time with Patient: Less than 30
--- NOTE | 2018-08-21 13:34 | P.PN ---
Subjective Progress Note Date: 08/21/18 Principal diagnosis: Mitral regurgitation. Mitral stenosis. Paroxysmal atrial fibrillation. Coronary artery disease. History of cardioversions, hypertension, hyperlipidemia, obstructive sleep apnea, previous tobacco dependence, mild COPD with preoperative FEV1 68% of predicted, daily EtOH use, GERD, obesity, and family history of premature coronary artery disease with brother diagnosed at 34 and father diagnosed at 42. POD #6 mitral valve replacement with a #31/33 On-X mechanical mitral valve. Coronary bypass grafting 2 with a right internal mammary artery to the right coronary artery, reverse saphenous vein graft off the aorta to the second obtuse marginal artery. Endovascular vein harvest of the left greater saphenous vein. Clip ligation of the left atrial appendage with a #40 mm AtriClip. Complete left-sided maze procedure using radiofrequency and cryoablation. Intraoperative transesophageal echocardiogram. Postoperative acute blood loss anemia, expected post surgical condition secondary to hemodilution and cardiopulmonary bypass pump. The patient is currently sitting up in the chair in no acute distress. States he is feeling better everyday, denies pain, shortness of breath. Has been ambulating the hallway without difficulty. No new complaints. Objective - Vital Signs Vital signs: Vital Signs Temp 97.6 F 08/21/18 12:00 Pulse 76 08/21/18 12:00 Resp 18 08/21/18 12:00 BP 109/74 08/21/18 12:00 Pulse Ox 93 L 08/21/18 12:00 Intake & Output 08/20/18 08/21/18 08/21/18 18:59 06:59 18:59 Intake Total 661.72 546 257.35 Output Total 700 150 850 Balance -38.28 396 -592.65 Weight 126 kg Intake: IV 60 120 40 Lactated Ringers 1,000 ml 60 120 40 @ 20 mls/hr IV .Q24H [facility] Rx#:[id number] Intake, IV Titration 601.72 426 217.35 Amount Heparin Sod,Pork in 0.45% 112.0 426 217.35 NaCl 25,000 unit In 0.45 % NaCl 1 250ml.bag @ 18.1 UNITS/KG/HR 23 mls/hr IV .[id number] [facility] Rx#: [id number] Heparin Sod,Pork in 0.45% 489.72 NaCl 25,000 unit In 0.45 % NaCl 1 500ml.bag @ 8.13 UNITS/KG/HR 19.99 mls/hr IV .Q24H [facility] Rx#: [id number] Output: Urine 700 150 850 Other: Voiding Method Toilet Toilet Toilet Urinal Urinal Urinal ABP, PAP, CO, CI - Last Documented Arterial Blood Pressure 137/135 Pulmonary Artery Pressure 40/15 Cardiac Output 9.9 Cardiac Index 4.1 - Constitutional General appearance: Present: cooperative, no acute distress, obese - Respiratory Details: Lungs sounds diminished bilaterally. Respirations even, nonlabored. Currently on room air with oxygen saturation 93%. Able to achieve 1500 mL on his incentive spirometry. Effective cough. - Cardiovascular Details: S1, S2 present. Positive valvular click. Regular rate and rhythm, sinus rhythm with first-degree AV block on telemetry. Sternum stable. Palpable peripheral pulses bilaterally. No edema present. No calf pain or tenderness noted. Heart hugger in place with patient demonstrating appropriate use. Antiembolism stockings, SCDs present. - Gastrointestinal Gastrointestinal Comment(s): Abdomen soft, nontender, nondistended. Active bowel sounds present 4 quadrants. Tolerating diet. Positive bowel movement. - Genitourinary Genitourinary Comment(s): Patient continues to void clear, yellow urine. - Integumentary Integumentary Comment(s): Skin is warm and dry with evidence of good perfusion. Anterior chest incision well approximated and covered with dry intact dressing. Left lower extremity EVH site well approximated with minimal serous drainage. - Neurologic Neurologic: Present: CNII-XII intact - Musculoskeletal Musculoskeletal: Present: gait normal, strength equal bilaterally - Psychiatric Psychiatric: Present: A&O x's 3, appropriate affect, intact judgment & insight - Allied health notes Allied health notes reviewed: nursing - Labs CBC & Chem 7: 08/21/18 04:38 08/21/18 04:38 Labs: Abnormal Lab Results - Last 24 Hours (Table) 08/20/18 08/20/18 08/20/18 Range/Units 17:15 19:54 20:53 RBC (4.30-5.90) m/uL Hgb (13.0-17.5) gm/dL Hct (39.0-53.0) % Metamyelocytes # (Man) (0) k/uL Myelocytes # (Manual) (0) k/uL PT (9.0-12.0) sec INR (<1.2) APTT (22.0-30.0) sec Sodium (137-145) mmol/L BUN (9-20) mg/dL Glucose (74-99) mg/dL POC Glucose (mg/dL) 140 H 130 H 137 H (75-99) mg/dL Magnesium (1.6-2.3) mg/dL ALT (21-72) U/L Total Protein (6.3-8.2) g/dL Albumin (3.5-5.0) g/dL 08/21/18 08/21/18 08/21/18 Range/Units 04:38 04:38 04:38 RBC 2.46 L (4.30-5.90) m/uL Hgb 7.2 L (13.0-17.5) gm/dL Hct 22.4 L (39.0-53.0) % Metamyelocytes # (Man) 0.09 H (0) k/uL Myelocytes # (Manual) 0.09 H (0) k/uL PT 13.1 H (9.0-12.0) sec INR 1.3 H (<1.2) APTT 47.9 H (22.0-30.0) sec Sodium 132 L (137-145) mmol/L BUN 36 H (9-20) mg/dL Glucose 103 H (74-99) mg/dL POC Glucose (mg/dL) (75-99) mg/dL Magnesium 2.4 H (1.6-2.3) mg/dL ALT 84 H (21-72) U/L Total Protein 5.3 L (6.3-8.2) g/dL Albumin 2.9 L (3.5-5.0) g/dL 08/21/18 08/21/18 Range/Units 07:04 12:02 RBC (4.30-5.90) m/uL Hgb (13.0-17.5) gm/dL Hct (39.0-53.0) % Metamyelocytes # (Man) (0) k/uL Myelocytes # (Manual) (0) k/uL PT (9.0-12.0) sec INR (<1.2) APTT (22.0-30.0) sec Sodium (137-145) mmol/L BUN (9-20) mg/dL Glucose (74-99) mg/dL POC Glucose (mg/dL) 109 H 101 H (75-99) mg/dL Magnesium (1.6-2.3) mg/dL ALT (21-72) U/L Total Protein (6.3-8.2) g/dL Albumin (3.5-5.0) g/dL - Imaging and Cardiology Chest x-ray: report reviewed, image reviewed Assessment and Plan (1) Mitral regurgitation Current Visit: Yes Status: Chronic Code(s): I34.0 - NONRHEUMATIC MITRAL ( VALVE) INSUFFICIENCY SNOMED Code(s): 39173215 (2) Mitral stenosis Current Visit: Yes Status: Chronic Code(s): I05.0 - RHEUMATIC MITRAL STENOSIS SNOMED Code(s): 05069786 (3) Paroxysmal atrial fibrillation Current Visit: No Status: Resolved Code(s): I48.0 - PAROXYSMAL ATRIAL FIBRILLATION SNOMED Code(s): 748043101 (4) Sleep apnea Current Visit: Yes Status: Chronic Code(s): G47.30 - SLEEP APNEA, UNSPECIFIED SNOMED Code(s): 01753544 (5) COPD (chronic obstructive pulmonary disease) Current Visit: Yes Status: Chronic Code(s): J44.9 - CHRONIC OBSTRUCTIVE PULMONARY DISEASE, UNSPECIFIED SNOMED Code(s): 57770121 (6) Status post mitral valve repair Current Visit: Yes Status: Acute Code(s): Z98.890 - OTHER SPECIFIED POSTPROCEDURAL STATES SNOMED Code(s): 272961151 (7) CAD (coronary artery disease) Current Visit: Yes Status: Chronic Code(s): I25.10 - ATHSCL HEART DISEASE OF [place] CORONARY ARTERY W/O ANG PCTRS SNOMED Code(s): 27077205 (8) Former smoker Current Visit: No Status: Resolved Code(s): Z87.891 - PERSONAL HISTORY OF NICOTINE DEPENDENCE SNOMED Code(s): 1929181 (9) Hypertension Current Visit: Yes Status: Chronic Code(s): I10 - ESSENTIAL (PRIMARY) HYPERTENSION SNOMED Code(s): 00200864 (10) Alcohol abuse Current Visit: Yes Status: Chronic Code(s): F10.10 - ALCOHOL ABUSE, UNCOMPLICATED SNOMED Code(s): 35576210 (11) GERD (gastroesophageal reflux disease) Current Visit: Yes Status: Chronic Code(s): K21.9 - GASTRO-ESOPHAGEAL REFLUX DISEASE WITHOUT ESOPHAGITIS SNOMED Code(s): 665124079 (12) Obesity (BMI 30-39.9) Current Visit: Yes Status: Chronic Code(s): E66.9 - OBESITY, UNSPECIFIED SNOMED Code(s): 220151822 (13) Family history of premature CAD Current Visit: Yes Status: Chronic Code(s): Z82.49 - FAMILY HX OF ISCHEM HEART DIS AND OTH DIS OF THE CIRC SYS SNOMED Code(s): 519486657 Plan: 1. Continue low-dose aspirin aspirin, statin, Coreg. 2. Will Coumadin therapy daily based on daily PT/INR. Goal INR 3.0. Will discontinue heparin drip once Coumadin is therapeutic. 3. Encourage incentive spirometry use 10 times every hour while awake. 4. Will give 40 mg IV Lasix today. 5. Increase activity, ambulate as tolerated. PT/OT/cardiac rehab following. 6. Will monitor daily labs and x-rays. Electrolyte replacement per protocol. 7. Insulin per primary care service. 8. Pain control with current medication regimen. 9. GI prophylaxis with Protonix. DVT prophylaxis with subcu heparin, SCDs. 10. Bronchodilators per pulmonology. 11. Transfer orders for [address] [place] [address] cardiac stepdown unit. May transfer when bed available. 12. Discharge planning a progress. Will discharge to home with home care once Coumadin level is therapeutic. 13. More recommendations to follow. Time with Patient: Greater than 30
[2018-08-21 17:14] LABS: Glucose,Whole Blood 120 mg/dL (75-99)
[2018-08-21] MEDS ORDERED: WARFARIN 10 MG TAB PO ONE (18:00)
[2018-08-21] MEDS: SENNOSIDES-DOCUSATE SODIUM 1 EACH TAB PO SCH (20:10)
--- NOTE | 2018-08-21 20:29 | PN ---
PROGRESS NOTE Mr. Tineo is in sinus rhythm with DE interval improved. He is being anticoagulated. PT/INR is not therapeutic yet, but there is some improvement. I expect it will be better tomorrow. He is ambulating without symptoms. Lungs reveal improved air entry. S1, S2 heard normally. Short systolic murmur noted. Vital signs are stable. Plan is to continue current medications, give him his Coumadin dosage and see how his PT/INR does tomorrow. Hopefully he will be discharged in the morning if he stable. MMODL / IJN: [id number] /
[2018-08-21 20:50] LABS: Glucose,Whole Blood 131 mg/dL (75-99)
[2018-08-22] MEDS: HYDROcodone/APAP 7.5-325MG 1 EACH TAB PO PRN ×4 (03:29→22:15)
[2018-08-22 05:31] LABS: HCT 22.2 % (39.0-53.0); HGB 7.2 gm/dL (13.0-17.5); MCH 29.3 pg (25.0-35.0); MCHC 32.2 g/dL (31.0-37.0); Mean Platelet Volume 7.1; Platelet Count 312 k/uL (150-450); RBC 2.44 m/uL (4.30-5.90); RDW 14.8 % (11.5-15.5); WBC 10.3 k/uL (3.8-10.6)
[2018-08-22 05:43] LABS: INR 1.7 (<1.2); Partial Thromboplastin Time 68.2 sec (22.0-30.0); Prothrombin Time 17.1 sec (9.0-12.0)
[2018-08-22 05:52] LABS: Anion Gap 6 mmol/L; Blood Urea Nitrogen 24 mg/dL (9-20); Calcium 8.7 mg/dL (8.4-10.2); Carbon Dioxide 28 mmol/L (22-30); Chloride 100 mmol/L (98-107); Glucose 94 mg/dL (74-99); Potassium 4.8 mmol/L (3.5-5.1); Sodium 134 mmol/L (137-145)
[2018-08-22] MEDS: LACTATED RINGERS 1,000 ML IV SCH (06:55)
[2018-08-22 07:22] LABS: Glucose,Whole Blood 111 mg/dL (75-99)
--- NOTE | 2018-08-22 07:53 | P.PN ---
Subjective Principal diagnosis: Status post mitral valve repair. This continue progress on a 53-year-old white male with history of COPD H fibrillation who is now here for CABG and postoperative for mitral valve replacement secondary to mitral valve regurgitation. The patient is doing quite well. The patient is a sinus rhythm and has been fairly controlled. No new pains. No sniffing nausea or vomiting. Objective - Vital Signs Vital signs: Vital Signs Temp 98.0 F 08/22/18 04:00 Pulse 78 08/22/18 04:00 Resp 17 08/22/18 04:00 BP 110/63 08/22/18 04:00 Pulse Ox 93 L 08/22/18 04:00 Intake & Output 08/21/18 08/22/18 08/22/18 18:59 06:59 18:59 Intake Total 277.35 590 Output Total 1300 1300 Balance -1022.65 -710 Intake: IV 60 340 Lactated Ringers 1,000 ml 60 340 @ 20 mls/hr IV .Q24H SAMANTHA Rx#:[id number] Intake, IV Titration 217.35 250 Amount Heparin Sod,Pork in 0.45% 217.35 250 NaCl 25,000 unit In 0.45 % NaCl 1 250ml.bag @ 18.1 UNITS/KG/HR 23 mls/hr IV .[id number] SAMANTHA Rx#: [id number] Output: Urine 1300 1300 Other: Voiding Method Toilet Toilet Urinal Urinal ABP, PAP, CO, CI - Last Documented Arterial Blood Pressure 137/135 Pulmonary Artery Pressure 40/15 Cardiac Output 9.9 Cardiac Index 4.1 - Constitutional General appearance: Present: cooperative, no acute distress - EENT Eyes: Present: abnormal pupil - Cardiovascular Rhythm: regular Heart sounds: normal: S1, S2 Abnormal Heart Sounds: Absent: S3 Gallop - Gastrointestinal General gastrointestinal: Present: soft. Absent: tenderness - Labs CBC & Chem 7: 08/22/18 05:08 08/22/18 05:08 Labs: Abnormal Lab Results - Last 24 Hours (Table) 08/21/18 08/21/18 08/21/18 Range/Units 04:38 12:02 17:03 RBC (4.30-5.90) m/uL Hgb (13.0-17.5) gm/dL Hct (39.0-53.0) % Metamyelocytes # (Man) 0.09 H (0) k/uL Myelocytes # (Manual) 0.09 H (0) k/uL PT (9.0-12.0) sec INR (<1.2) APTT (22.0-30.0) sec Sodium (137-145) mmol/L BUN (9-20) mg/dL POC Glucose (mg/dL) 101 H 120 H (75-99) mg/dL 08/21/18 08/22/18 08/22/18 Range/Units 20:38 05:08 05:08 RBC 2.44 L (4.30-5.90) m/uL Hgb 7.2 L (13.0-17.5) gm/dL Hct 22.2 L (39.0-53.0) % Metamyelocytes # (Man) (0) k/uL Myelocytes # (Manual) (0) k/uL PT 17.1 H (9.0-12.0) sec INR 1.7 H (<1.2) APTT 68.2 H (22.0-30.0) sec Sodium (137-145) mmol/L BUN (9-20) mg/dL POC Glucose (mg/dL) 131 H (75-99) mg/dL 08/22/18 08/22/18 Range/Units 05:08 07:10 RBC (4.30-5.90) m/uL Hgb (13.0-17.5) gm/dL Hct (39.0-53.0) % Metamyelocytes # (Man) (0) k/uL Myelocytes # (Manual) (0) k/uL PT (9.0-12.0) sec INR (<1.2) APTT (22.0-30.0) sec Sodium 134 L (137-145) mmol/L BUN 24 H (9-20) mg/dL POC Glucose (mg/dL) 111 H (75-99) mg/dL Assessment and Plan (1) Status post mitral valve repair Current Visit: Yes Status: Acute Code(s): Z98.890 - OTHER SPECIFIED POSTPROCEDURAL STATES SNOMED Code(s): 544469242 (2) Atrial fibrillation Current Visit: No Status: Acute Code(s): I48.91 - UNSPECIFIED ATRIAL FIBRILLATION SNOMED Code(s): 67137471 (3) CAD (coronary artery disease) Current Visit: Yes Status: Chronic Code(s): I25.10 - ATHSCL HEART DISEASE OF [place] CORONARY ARTERY W/O ANG PCTRS SNOMED Code(s): 55705637 (4) Former smoker Current Visit: No Status: Resolved Code(s): Z87.891 - PERSONAL HISTORY OF NICOTINE DEPENDENCE SNOMED Code(s): 0395095 Plan: The patient is clinically improving. Anticipate discharge in next [address] Shaw's group will be covering for Sunday. See orders otherwise. Time with Patient: Less than 30
[2018-08-22] MEDS: IPRATROPIUM-ALBUTEROL 3 ML NEB INHALATION SCH ×4 (08:22→20:30)
--- NOTE | 2018-08-22 08:36 | XR ---
EXAMINATION TYPE: XR chest 1V portable DATE OF EXAM: 08/22/2018 COMPARISON: 08/21/2018 INDICATION: Post cardiac surgery TECHNIQUE: Single frontal view of the chest is obtained. FINDINGS: The heart size is enlarged. The pulmonary vasculature is normal. There is peripheral increased density along the right chest wall. Small right pleural effusion is pre sent. Artifact overlies the chest. IMPRESSION: 1. Mild improvement from previous examination of a right peripheral infiltrate and/or small pleural e ffusion. 2. Cardiomegaly.
[2018-08-22] MEDS: INSULIN ASPART 100 UNIT/ML 1 ML 10 ML VIAL SQ SCH ×4 (08:51→23:22)
[2018-08-22] MEDS: ATORVASTATIN 40 MG TAB PO SCH (08:59)
[2018-08-22] MEDS: CITALOPRAM HYDROBROMIDE 20 MG TAB PO SCH (09:00)
[2018-08-22] MEDS: ASPIRIN 81 MG PO SCH (09:00)
[2018-08-22] MEDS: PANTOPRAZOLE 40 MG TABLET PO SCH (09:00)
[2018-08-22] MEDS: HEPARIN SOD,PORK IN 0.45% NACL 25,000 UNIT in 0.45% NACL 1 250ML.BAG IV SCH ×2 (09:02→23:30)
--- NOTE | 2018-08-22 09:13 | P.PN ---
Subjective Progress Note Date: 08/22/18 Principal diagnosis: Mitral regurgitation. Mitral stenosis. Paroxysmal atrial fibrillation. Coronary artery disease. History of cardioversions, hypertension, hyperlipidemia, obstructive sleep apnea, previous tobacco dependence, mild COPD with preoperative FEV1 68% of predicted, daily EtOH use, GERD, obesity, and family history of premature coronary artery disease with brother diagnosed at 34 and father diagnosed at 42. POD #7 mitral valve replacement with a #31/33 On-X mechanical mitral valve. Coronary bypass grafting 2 with a right internal mammary artery to the right coronary artery, reverse saphenous vein graft off the aorta to the second obtuse marginal artery. Endovascular vein harvest of the left greater saphenous vein. Clip ligation of the left atrial appendage with a #40 mm AtriClip. Complete left-sided maze procedure using radiofrequency and cryoablation. Intraoperative transesophageal echocardiogram. Postoperative acute blood loss anemia, expected post surgical condition secondary to hemodilution and cardiopulmonary bypass pump. The patient is currently sitting up in the chair in no acute distress. Patient does complain of some postoperative type pain at the site where his right chest tube was but states it is better controlled with increase in medication, shortness of breath. Has been ambulating the hallway without difficulty. No new complaints, except frustration over continuing to be in the hospital waiting for his Coumadin level to be therapeutic. Objective - Vital Signs Vital signs: Vital Signs Temp 98.0 F 08/22/18 04:00 Pulse 74 08/22/18 08:33 Resp 17 08/22/18 04:00 BP 110/63 08/22/18 04:00 Pulse Ox 93 L 08/22/18 04:00 Intake & Output 08/21/18 08/22/18 08/22/18 18:59 06:59 18:59 Intake Total 277.35 590 236.517 Output Total 1300 1300 Balance -1022.65 -710 236.517 Intake: IV 60 340 Lactated Ringers 1,000 ml 60 340 @ 20 mls/hr IV .Q24H SAMANTHA Rx#:[id number] Intake, IV Titration 217.35 250 236.517 Amount Heparin Sod,Pork in 0.45% 217.35 250 236.517 NaCl 25,000 unit In 0.45 % NaCl 1 250ml.bag @ 18.1 UNITS/KG/HR 23 mls/hr IV .[id number] SAMANTHA Rx#: [id number] Output: Urine 1300 1300 Other: Voiding Method Toilet Toilet Urinal Urinal ABP, PAP, CO, CI - Last Documented Arterial Blood Pressure 137/135 Pulmonary Artery Pressure 40/15 Cardiac Output 9.9 Cardiac Index 4.1 - Constitutional General appearance: Present: cooperative, no acute distress, obese - Respiratory Details: Lungs sounds diminished bilaterally. Respirations even, nonlabored. Currently on room air with oxygen saturation 93%. Able to achieve 8019-4496 mL on his incentive spirometry. Effective cough. - Cardiovascular Details: S1, S2 present. Positive valvular click. Regular rate and rhythm, sinus rhythm with first-degree AV block on telemetry. Sternum does move a bit with forceful coughing. Palpable peripheral pulses bilaterally. No edema present. No calf pain or tenderness noted. Heart hugger in place with patient demonstrating appropriate use. Antiembolism stockings, SCDs present. - Gastrointestinal Gastrointestinal Comment(s): Abdomen soft, nontender, nondistended. Active bowel sounds present 4 quadrants. Tolerating diet. Positive bowel movement. - Genitourinary Genitourinary Comment(s): Patient continues to void clear, yellow urine. Output 600 mL overnight. - Integumentary Integumentary Comment(s): Skin is warm and dry with evidence of good perfusion. Anterior chest incision well approximated and covered with dry intact dressing. Left lower extremity EVH site well approximated with minimal serous drainage. - Neurologic Neurologic: Present: CNII-XII intact - Musculoskeletal Musculoskeletal: Present: gait normal, strength equal bilaterally - Psychiatric Psychiatric: Present: A&O x's 3, appropriate affect, intact judgment & insight - Allied health notes Allied health notes reviewed: nursing - Labs CBC & Chem 7: 08/22/18 05:08 08/22/18 05:08 Labs: Abnormal Lab Results - Last 24 Hours (Table) 08/21/18 08/21/18 08/21/18 Range/Units 12:02 17:03 20:38 RBC (4.30-5.90) m/uL Hgb (13.0-17.5) gm/dL Hct (39.0-53.0) % PT (9.0-12.0) sec INR (<1.2) APTT (22.0-30.0) sec Sodium (137-145) mmol/L BUN (9-20) mg/dL POC Glucose (mg/dL) 101 H 120 H 131 H (75-99) mg/dL 08/22/18 08/22/18 08/22/18 Range/Units 05:08 05:08 05:08 RBC 2.44 L (4.30-5.90) m/uL Hgb 7.2 L (13.0-17.5) gm/dL Hct 22.2 L (39.0-53.0) % PT 17.1 H (9.0-12.0) sec INR 1.7 H (<1.2) APTT 68.2 H (22.0-30.0) sec Sodium 134 L (137-145) mmol/L BUN 24 H (9-20) mg/dL POC Glucose (mg/dL) (75-99) mg/dL 08/22/18 Range/Units 07:10 RBC (4.30-5.90) m/uL Hgb (13.0-17.5) gm/dL Hct (39.0-53.0) % PT (9.0-12.0) sec INR (<1.2) APTT (22.0-30.0) sec Sodium (137-145) mmol/L BUN (9-20) mg/dL POC Glucose (mg/dL) 111 H (75-99) mg/dL - Imaging and Cardiology Chest x-ray: report reviewed, image reviewed Assessment and Plan (1) Mitral regurgitation Current Visit: Yes Status: Chronic Code(s): I34.0 - NONRHEUMATIC MITRAL ( VALVE) INSUFFICIENCY SNOMED Code(s): 95062620 (2) Mitral stenosis Current Visit: Yes Status: Chronic Code(s): I05.0 - RHEUMATIC MITRAL STENOSIS SNOMED Code(s): 04809205 (3) Paroxysmal atrial fibrillation Current Visit: No Status: Resolved Code(s): I48.0 - PAROXYSMAL ATRIAL FIBRILLATION SNOMED Code(s): 060162157 (4) Sleep apnea Current Visit: Yes Status: Chronic Code(s): G47.30 - SLEEP APNEA, UNSPECIFIED SNOMED Code(s): 64689259 (5) COPD (chronic obstructive pulmonary disease) Current Visit: Yes Status: Chronic Code(s): J44.9 - CHRONIC OBSTRUCTIVE PULMONARY DISEASE, UNSPECIFIED SNOMED Code(s): 10296637 (6) Status post mitral valve repair Current Visit: Yes Status: Acute Code(s): Z98.890 - OTHER SPECIFIED POSTPROCEDURAL STATES SNOMED Code(s): 694566558 (7) CAD (coronary artery disease) Current Visit: Yes Status: Chronic Code(s): I25.10 - ATHSCL HEART DISEASE OF [place] CORONARY ARTERY W/O ANG PCTRS SNOMED Code(s): 92019358 (8) Former smoker Current Visit: No Status: Resolved Code(s): Z87.891 - PERSONAL HISTORY OF NICOTINE DEPENDENCE SNOMED Code(s): 0532384 (9) Hypertension Current Visit: Yes Status: Chronic Code(s): I10 - ESSENTIAL (PRIMARY) HYPERTENSION SNOMED Code(s): 55279032 (10) Alcohol abuse Current Visit: Yes Status: Chronic Code(s): F10.10 - ALCOHOL ABUSE, UNCOMPLICATED SNOMED Code(s): 92092015 (11) GERD (gastroesophageal reflux disease) Current Visit: Yes Status: Chronic Code(s): K21.9 - GASTRO-ESOPHAGEAL REFLUX DISEASE WITHOUT ESOPHAGITIS SNOMED Code(s): 373660606 (12) Obesity (BMI 30-39.9) Current Visit: Yes Status: Chronic Code(s): E66.9 - OBESITY, UNSPECIFIED SNOMED Code(s): 326964172 (13) Family history of premature CAD Current Visit: Yes Status: Chronic Code(s): Z82.49 - FAMILY HX OF [place]HE[place] HEART DIS AND OTH DIS OF THE CIRC SYS SNOMED Code(s): 280058992 Plan: 1. Continue low-dose aspirin aspirin, statin, Coreg. 2. Will Coumadin therapy daily based on daily PT/INR. Goal INR 3.0. Will discontinue heparin drip once Coumadin is therapeutic. 3. Encourage incentive spirometry use 10 times every hour while awake. 4. Will give 40 mg IV Lasix today. 5. Increase activity, ambulate as tolerated. PT/OT/cardiac rehab following. 6. Will monitor daily labs and x-rays. Electrolyte replacement per protocol. 7. Insulin per primary care service. 8. Pain control with current medication regimen. 9. GI prophylaxis with Protonix. DVT prophylaxis with IV heparin, SCDs. 10. Bronchodilators per pulmonology. 11. Transfer orders for [address] [place] [address] cardiac stepdown unit. May transfer when bed available. 12. Discharge planning a progress. Will discharge to home with home care once Coumadin level is therapeutic. 13. More recommendations to follow. Time with Patient: Greater than 30
[2018-08-22] MEDS ORDERED: FUROSEMIDE 10 MG/ML 4 ML VIAL IV STA (09:21)
[2018-08-22] MEDS: CARVEDILOL 1.563 MG TAB PO SCH ×2 (10:02→17:29)
[2018-08-22] MEDS: ONDANSETRON 4 MG/2 ML VIAL IVP PRN (10:02)
[2018-08-22 12:00] LABS: Glucose,Whole Blood 111 mg/dL (75-99)
[2018-08-22] MEDS ORDERED: HEPARIN SODIUM,PORCINE 5,000 UNIT/ML 1 ML VIAL IV PRN (14:23)
--- NOTE | 2018-08-22 15:40 | P.PN ---
Subjective Progress Note Date: 08/22/18 Principal diagnosis: Status post mitral valve replacement and two-vessel CABG postoperative day # 7 This is a 53-year-old male patient who is being seen in the intensive care unit following his mitral valve replacement surgery. The patient underwent mitral valve replacement, tissue valve, in addition to modified Wolf-Maze procedure, clipping of the appendage and 2 vessel bypass including a BINTA to RCA and SVG to OM1, and the patient is currently intubated on a mechanical ventilator in the intensive care unit. Chest x-ray shows increased vascular congestion. Orotracheal tube is in a good location. The patient has a right IJ [place] catheter in place. The patient also has a mediastinal and the left pleural chest tube. The blood gases showed a pH of 7.26 with a pCO2 of 60 and pO2 139. Based on this, I put the patient on avoidance cycle mode assist control at a rate of 20, tidal volume of 550, FiO2 is down to 60% and a PEEP of 20. Follow- up blood gases are still pending for now. Hemodynamically the patient is on no pressors. The patient's mean arterial pressures around 60 to and the patient be given IV albumin. Maintenance fluid is normal saline today to 50 mL an hour. Cardiac index is at 2.6. Pulmonary artery pressure nonelevated. Upper from the chest tube both mediastinal and pleural is a total of 130 mL since his arrival from the operating room. He is producing adequate amount of urine output. He is currently off sedation. He was given a dose of fentanyl 50 g for increased chest wall pain. His cardiac rhythm is paced at the rate of 85. Underlying cardiac rhythm is a block third-degree. On 08/16/2018 patient seen in follow-up in the intensive care unit, patient has been extubated, currently on 2 L per nasal cannula his pulse ox is 96%, afebrile , hemodynamically stable. Currently in sinus rhythm, echo with backup rate. Patient is sitting up in the chair, in no acute distress, lung sounds are clear diminished at the bases, he is working on his incentive spirometer, his ISS effort is 1500 today. PA pressures 39/19, cardiac output and index are 9.9 and 4.1 respectively. Right and mediastinal chest tube output has been 605 ML in the last 24 hours. Santiago catheter is in place, patient is nonoliguric. Her and IV infusions include LR at a rate of 50 ML per hour, and insulin is at 6 units per minute. Chest x-ray has been reviewed and showed stable scattered infiltrates, likely atelectasis. Her pain is reasonably controlled. Today's blood work showed WBC of 12.7, hemoglobin of 10.0, sodium 140 potassium is 4.9, chloride is 107, BUN is 22, creatinine 0.7. The patient was seen again today 08/17/2018 in follow-up in the intensive care unit. He is currently sitting up in a chair at the bedside. He is awake and alert in no acute distress. He denies any worsening shortness of breath, cough or congestion. His pain is well controlled. He is working well with the incentive spirometer. He is maintaining good O2 saturations in the upper 90s on 3 L/m per nasal cannula. His x-ray reveals cardiomegaly with bilateral platelike atelectasis and small effusion. Mediastinal/right pleural chest tube remains in place. He's been afebrile. Hemodynamically stable. White count 11.8. Hemoglobin 8.9. Creatinine 0.78. Remains on lactated Ringer's at 50 MLS per hour. Insulin drip at 4.5 units per hour. On 08/18/2089 seeing this patient for a follow-up. The patient has postop day # 3. He underwent mitral valve replacement. He also underwent three-vessel bypass surgery. Hemodynamically stable. He is in a sinus rhythm. Note that he also had a modified maze procedure using radiofrequency and cryoablation. The patient has no complaints. The [place] catheter has been removed. He did encounter some bleeding from the puncture site where pressure was applied and currently hemostasis is achieved. He is cardiac rhythm is sinus with a first-degree AV block. He is swallowing. He is ambulating. The patient has chest tubes in place and the patient's right-sided chest tube has drained 5 ML' s of serosanguineous drainage over the past 8 hours and 300 over the past 24 hours without evidence of any air leak. The patient is pulling approximately 1500 mL on the incentive spirometer. Pulse ox is 95% liters of oxygen by nasal cannula. Chest x-ray shows adequate expansion of both lungs. Chest tube is in good location. No pneumothorax. On 08/19/2018, patient was seen on follow-up, in the ICU, he is postoperative day #4. Patient had a mitral valve replacement and two-vessel bypass surgery. Patient is doing great, relatively asymptomatic, denies any cough no wheezing no shortness of breath, presently is on room air. Doing great with incentive spirometry, chest x-ray showed right-sided chest tube in place, minimal atelectasis at the bases especially at the left base. Patient again is relatively asymptomatic. CBC is relatively normal hemoglobin is 7.7. Basic metabolic profile is normal, renal profile is normal. Liver enzymes were noted to be slightly elevated. On 08/20/2018, patient remains in the ICU, his postoperative day #5. Patient had a mitral valve replaced and two-vessel bypass surgery. Doing great, relatively asymptomatic, remains on room air. No shortness of breath no cough no wheezing. Chest x-ray was reviewed, and most showed postoperative changes, mostly expected changes. His CBC showed a hemoglobin of 7.1. A left was normal renal profile is normal. Reevaluated today on 08/21/2018, patient remains in the ICU, he is postoperative day #6. Patient is doing well, already ambulating in the hallway in the ICU. No cough no wheezing no shortness of breath, no chest pain. Chest x-ray showed subsegmental atelectasis, right upper lobe pleural-based density Which is relatively new, and was not present on previous x-rays prior to his surgery. It is most likely a fluid collection in that area, and will likely resolve with time. Reevaluated today on 08/22/2018, postoperative day #7, doing well, continues to ambulate in the hallway, patient is relatively asymptomatic. His Coumadin remains subtherapeutic, and hoping that his Coumadin will become therapeutic by tomorrow and could be discharged home. Ration is ambulating on his own fine. And he is in no distress. All his labs and chest x-ray were reviewed. Objective - Vital Signs Vital signs: Vital Signs Temp 98.2 F 08/22/18 12:00 Pulse 80 08/22/18 13:00 Resp 17 08/22/18 13:00 BP 134/75 08/22/18 13:00 Pulse Ox 93 L 08/22/18 13:00 Intake & Output 08/21/18 08/22/18 08/22/18 18:59 06:59 18:59 Intake Total 277.35 590 2026.467 Output Total 1300 1300 1700 Balance -1022.65 -710 326.467 Weight 126 kg Intake: IV 60 340 160 Lactated Ringers 1,000 ml 60 340 160 @ 20 mls/hr IV .Q24H SAMANTHA Rx#:[id number] Intake, IV Titration 217.35 250 366.467 Amount Heparin Sod,Pork in 0.45% 217.35 250 366.467 NaCl 25,000 unit In 0.45 % NaCl 1 250ml.bag @ 21.1 UNITS/KG/HR 26.81 mls/hr IV .Q9H20M SAMANTHA Rx#: [id number] Oral 1500 Output: Urine 1300 1300 1700 Other: Voiding Method Toilet Toilet Toilet Urinal Urinal Urinal ABP, PAP, CO, CI - Last Documented Arterial Blood Pressure 137/135 Pulmonary Artery Pressure 40/15 Cardiac Output 9.9 Cardiac Index 4.1 - Exam Physical Exam: Revealed a 53-year-old white male in no distress. Head: Atraumatic, normocephalic. HEENT: PERRLA, EOMI, no icterus. [Neck is supple.] [No neck masses.] [No thyromegaly.] [No JVD.] Moist mucous membranes. Throat is clear. Chest: [Clear throughout, no crackles, no rhonchi, no wheezes.] Surgical site is clean and dry. Cardiac Exam: [Normal S1 and S2, no S3 gallop, no murmur.] Abdomen: Obese, [Soft, nontender, no megaly, no rebound, no guarding, normal bowel sounds.] Extremities: [No clubbing, no edema, no cyanosis.] Neurological Exam: [No focal neurologic deficit.] Psychiatric: Normal mood, affect and mental status examination. Skin: No rashes. - Labs CBC & Chem 7: 08/22/18 05:08 08/22/18 05:08 Labs: Abnormal Lab Results - Last 24 Hours (Table) 08/21/18 08/21/18 08/22/18 Range/Units 17:03 20:38 05:08 RBC (4.30-5.90) m/uL Hgb (13.0-17.5) gm/dL Hct (39.0-53.0) % PT 17.1 H (9.0-12.0) sec INR 1.7 H (<1.2) APTT 68.2 H (22.0-30.0) sec Sodium (137-145) mmol/L BUN (9-20) mg/dL POC Glucose (mg/dL) 120 H 131 H (75-99) mg/dL 08/22/18 08/22/18 08/22/18 Range/Units 05:08 05:08 07:10 RBC 2.44 L (4.30-5.90) m/uL Hgb 7.2 L (13.0-17.5) gm/dL Hct 22.2 L (39.0-53.0) % PT (9.0-12.0) sec INR (<1.2) APTT (22.0-30.0) sec Sodium 134 L (137-145) mmol/L BUN 24 H (9-20) mg/dL POC Glucose (mg/dL) 111 H (75-99) mg/dL 08/22/18 08/22/18 Range/Units 11:48 11:56 RBC (4.30-5.90) m/uL Hgb (13.0-17.5) gm/dL Hct (39.0-53.0) % PT (9.0-12.0) sec INR (<1.2) APTT 32.2 H (22.0-30.0) sec Sodium (137-145) mmol/L BUN (9-20) mg/dL POC Glucose (mg/dL) 111 H (75-99) mg/dL Assessment and Plan Assessment: Impression: 1 status post mitral valve replacement and two-vessel bypass surgery postoperative day #7 2 history of severe mitral valve regurgitation and pulmonary edema in the past. 3 history of left atrial appendage clot. 4 obstructive sleep apnea syndrome on CPAP at night. 5 multiple comorbidities including obesity, hypertension, osteoarthritis, diverticular disease, and known history of coronary artery disease with previous stenting of RCA. Recommendation: Continue incentive spirometry, ambulation, continue to monitor pro time and INR while on Coumadin, hoping to discharge the patient home in a.m. We'll continue to follow, outpatient follow-up once the patient is discharged. Time with Patient: Less than 30
[2018-08-22 17:12] LABS: Glucose,Whole Blood 102 mg/dL (75-99)
[2018-08-22] MEDS ORDERED: WARFARIN 10 MG TAB PO ONE (18:00)
--- NOTE | 2018-08-22 19:00 | PN ---
PROGRESS NOTE Mr. Hare is a gentleman with mitral valve replacement and bypass surgery. He is doing better today. His INR is 1.6. Plan is to give him additional dose of Coumadin possible discharge tomorrow. He has been ambulating without symptoms. He is in first-degree AV block, but remains in sinus rhythm. S1-S2 heard normally. Short systolic murmur noted. Lungs are clear. Abdomen and lower extremity exam unchanged. PLAN: Continue current medications. Increase activity. Possible discharge tomorrow if PT/INR is good. MMODL / IJN: [id number] /
[2018-08-22 21:05] LABS: Glucose,Whole Blood 110 mg/dL (75-99)
[2018-08-22] MEDS: SENNOSIDES-DOCUSATE SODIUM 1 EACH TAB PO SCH (23:29)
[2018-08-23 01:49] LABS: Glucose,Whole Blood 103 mg/dL (75-99)
[2018-08-23] MEDS: HYDROcodone/APAP 7.5-325MG 1 EACH TAB PO PRN ×4 (04:39→22:12)
[2018-08-23] MEDS: HEPARIN SOD,PORK IN 0.45% NACL 25,000 UNIT in 0.45% NACL 1 250ML.BAG IV SCH (04:40)
[2018-08-23] MEDS: LACTATED RINGERS 1,000 ML IV SCH (04:45)
[2018-08-23 06:16] LABS: HCT 23.1 % (39.0-53.0); HGB 7.5 gm/dL (13.0-17.5); Hypochromasia Slight; MCH 29.3 pg (25.0-35.0); MCHC 32.5 g/dL (31.0-37.0); Mean Platelet Volume 7.1; Platelet Count 278 k/uL (150-450); RBC 2.57 m/uL (4.30-5.90); WBC 13.3 k/uL (3.8-10.6)
[2018-08-23 06:25] LABS: INR 2.8 (<1.2); Prothrombin Time 27.5 sec (9.0-12.0)
[2018-08-23 06:50] LABS: Glucose,Whole Blood 108 mg/dL (75-99)
[2018-08-23 06:53] LABS: ALT 144 U/L (21-72); AST 76 U/L (17-59); Albumin 3.2 g/dL (3.5-5.0); Alkaline Phosphatase 180 U/L (38-126); Anion Gap 6 mmol/L; Blood Urea Nitrogen 19 mg/dL (9-20); Calcium 8.8 mg/dL (8.4-10.2); Carbon Dioxide 28 mmol/L (22-30); Chloride 98 mmol/L (98-107); Glucose 91 mg/dL (74-99); Potassium 4.9 mmol/L (3.5-5.1); Sodium 132 mmol/L (137-145); Total Bilirubin 0.9 mg/dL (0.2-1.3); Total Protein 5.7 g/dL (6.3-8.2)
[2018-08-23] MEDS: INSULIN ASPART 100 UNIT/ML 1 ML 10 ML VIAL SQ SCH ×4 (07:00→20:04)
[2018-08-23] MEDS: CARVEDILOL 1.563 MG TAB PO SCH ×2 (07:03→16:57)
[2018-08-23] MEDS: PANTOPRAZOLE 40 MG TABLET PO SCH (07:03)
--- NOTE | 2018-08-23 08:17 | XR ---
EXAMINATION TYPE: XR chest 1V portable DATE OF EXAM: 08/23/2018 COMPARISON: Prior chest x-ray 08/22/2018 HISTORY: Status post cardiac surgery TECHNIQUE: Single frontal view of the chest is obtained. FINDINGS: Patient is post median sternotomy, atrial appendage clipping, cardiac valve replacement. H eart remains enlarged. No evident pneumothorax. Interstitium is increased. Pleural parenchymal change s are similar to prior exam. Blunting the costophrenic angles is noted. There are overlying cardiac l [place]. IMPRESSION: Findings are similar to prior exam. There may be a component of pulmonary venous hyperte nsion and interstitial edema. Probable residual atelectatic changes. Cardiomegaly, postop changes.
[2018-08-23] MEDS: ATORVASTATIN 40 MG TAB PO SCH (08:56)
[2018-08-23] MEDS: CITALOPRAM HYDROBROMIDE 20 MG TAB PO SCH (08:56)
[2018-08-23] MEDS: ASPIRIN 81 MG PO SCH (08:57)
[2018-08-23] MEDS: IPRATROPIUM-ALBUTEROL 3 ML NEB INHALATION SCH ×4 (09:14→19:08)
[2018-08-23 11:46] LABS: Glucose,Whole Blood 99 mg/dL (75-99)
--- NOTE | 2018-08-23 13:13 | P.PN ---
Subjective Progress Note Date: 08/23/18 Principal diagnosis: Mitral regurgitation. Mitral stenosis. Paroxysmal atrial fibrillation. Coronary artery disease. History of cardioversions, hypertension, hyperlipidemia, obstructive sleep apnea, previous tobacco dependence, mild COPD with preoperative FEV1 68% of predicted, daily EtOH use, GERD, obesity, and family history of premature coronary artery disease with brother diagnosed at 34 and father diagnosed at 42. POD #8 mitral valve replacement with a #31/33 On-X mechanical mitral valve. Coronary bypass grafting 2 with a right internal mammary artery to the right coronary artery, reverse saphenous vein graft off the aorta to the second obtuse marginal artery. Endovascular vein harvest of the left greater saphenous vein. Clip ligation of the left atrial appendage with a #40 mm AtriClip. Complete left-sided maze procedure using radiofrequency and cryoablation. Intraoperative transesophageal echocardiogram. Postoperative acute blood loss anemia, expected post surgical condition secondary to hemodilution and cardiopulmonary bypass pump. The patient is currently sitting up in the chair in no acute distress. Patient does complain of some postoperative type pain at the site where his right chest tube was but states it is controlled with current medication regimen, shortness of breath. Has been ambulating the hallway without difficulty. No new complaints. Was transferred to [address] [place] [address] cardiac stepdown unit this morning. Is aware his INR is 2.8 but wants to wait until tomorrow morning to be discharged. Objective - Vital Signs Vital signs: Vital Signs Temp 97.7 F 08/23/18 08:00 Pulse 75 08/23/18 08:00 Resp 16 08/23/18 08:00 BP 129/75 08/23/18 08:00 Pulse Ox 95 08/23/18 08:00 Intake & Output 08/22/18 08/23/18 08/23/18 18:59 06:59 18:59 Intake Total 2706.467 338.568 Output Total 1999 500 225 Balance 706.467 -161.432 -225 Weight 126 kg Intake: IV 240 80 Lactated Ringers 1,000 ml 240 80 @ 20 mls/hr IV .Q24H [facility] Rx#:[id number] Intake, IV Titration 366.467 258.568 Amount Heparin Sod,Pork in 0.45% 366.467 258.568 NaCl 25,000 unit In 0.45 % NaCl 1 250ml.bag @ 21.1 UNITS/KG/HR 26.81 mls/hr IV .Q9H20M [facility] Rx#: [id number] Oral 2100 Output: Urine 1999 500 225 Other: Voiding Method Toilet Toilet Urinal Urinal ABP, PAP, CO, CI - Last Documented Arterial Blood Pressure 137/135 Pulmonary Artery Pressure 40/15 Cardiac Output 9.9 Cardiac Index 4.1 - Constitutional General appearance: Present: cooperative, no acute distress, obese - Respiratory Details: Lungs sounds diminished bilaterally. Respirations even, nonlabored. Currently on room air with oxygen saturation 92%. Able to achieve 1750 mL on his incentive spirometry. Effective cough. - Cardiovascular Details: S1, S2 present. Positive valvular click. Regular rate and rhythm, sinus rhythm with first-degree AV block on telemetry. Sternum does move a bit with forceful coughing. Palpable peripheral pulses bilaterally. No edema present. No calf pain or tenderness noted. Heart hugger in place with patient demonstrating appropriate use. Antiembolism stockings, SCDs present. - Gastrointestinal Gastrointestinal Comment(s): Abdomen soft, nontender, nondistended. Active bowel sounds present 4 quadrants. Tolerating diet. Positive bowel movement. - Genitourinary Genitourinary Comment(s): Patient continues to void clear, yellow urine. Output 500 mL overnight. - Integumentary Integumentary Comment(s): Skin is warm and dry with evidence of good perfusion. Anterior chest incision well approximated and covered with dry intact dressing. Left lower extremity EVH site well approximated with minimal serous drainage. - Neurologic Neurologic: Present: CNII-XII intact - Musculoskeletal Musculoskeletal: Present: gait normal, strength equal bilaterally - Psychiatric Psychiatric: Present: A&O x's 3, appropriate affect, intact judgment & insight - Allied health notes Allied health notes reviewed: nursing - Labs CBC & Chem 7: 08/23/18 05:56 08/23/18 05:56 Labs: Abnormal Lab Results - Last 24 Hours (Table) 08/22/18 08/22/18 08/22/18 Range/Units 11:48 11:56 17:00 WBC (3.8-10.6) k/uL RBC (4.30-5.90) m/uL Hgb (13.0-17.5) gm/dL Hct (39.0-53.0) % PT (9.0-12.0) sec INR (<1.2) APTT 32.2 H (22.0-30.0) sec Sodium (137-145) mmol/L POC Glucose (mg/dL) 111 H 102 H (75-99) mg/dL AST (17-59) U/L ALT (21-72) U/L Alkaline Phosphatase (38-126) U/L Total Protein (6.3-8.2) g/dL Albumin (3.5-5.0) g/dL 08/22/18 08/22/18 08/23/18 Range/Units 20:41 20:53 01:38 WBC (3.8-10.6) k/uL RBC (4.30-5.90) m/uL Hgb (13.0-17.5) gm/dL Hct (39.0-53.0) % PT (9.0-12.0) sec INR (<1.2) APTT 79.4 H (22.0-30.0) sec Sodium (137-145) mmol/L POC Glucose (mg/dL) 110 H 103 H (75-99) mg/dL AST (17-59) U/L ALT (21-72) U/L Alkaline Phosphatase (38-126) U/L Total Protein (6.3-8.2) g/dL Albumin (3.5-5.0) g/dL 08/23/18 08/23/18 08/23/18 Range/Units 05:56 05:56 05:56 WBC 13.3 H (3.8-10.6) k/uL RBC 2.57 L (4.30-5.90) m/uL Hgb 7.5 L (13.0-17.5) gm/dL Hct 23.1 L (39.0-53.0) % PT 27.5 H (9.0-12.0) sec INR 2.8 H (<1.2) APTT (22.0-30.0) sec Sodium 132 L (137-145) mmol/L POC Glucose (mg/dL) (75-99) mg/dL AST 76 H (17-59) U/L ALT 144 H (21-72) U/L Alkaline Phosphatase 180 H (38-126) U/L Total Protein 5.7 L (6.3-8.2) g/dL Albumin 3.2 L (3.5-5.0) g/dL 08/23/18 08/23/18 Range/Units 06:49 08:24 WBC (3.8-10.6) k/uL RBC (4.30-5.90) m/uL Hgb (13.0-17.5) gm/dL Hct (39.0-53.0) % PT (9.0-12.0) sec INR (<1.2) APTT 92.1 H (22.0-30.0) sec Sodium (137-145) mmol/L POC Glucose (mg/dL) 108 H (75-99) mg/dL AST (17-59) U/L ALT (21-72) U/L Alkaline Phosphatase (38-126) U/L Total Protein (6.3-8.2) g/dL Albumin (3.5-5.0) g/dL - Imaging and Cardiology Chest x-ray: report reviewed, image reviewed Assessment and Plan (1) Mitral regurgitation Current Visit: Yes Status: Chronic Code(s): I34.0 - NONRHEUMATIC MITRAL ( VALVE) INSUFFICIENCY SNOMED Code(s): 06987750 (2) Mitral stenosis Current Visit: Yes Status: Chronic Code(s): I05.0 - RHEUMATIC MITRAL STENOSIS SNOMED Code(s): 92730885 (3) Paroxysmal atrial fibrillation Current Visit: No Status: Resolved Code(s): I48.0 - PAROXYSMAL ATRIAL FIBRILLATION SNOMED Code(s): 402788786 (4) Sleep apnea Current Visit: Yes Status: Chronic Code(s): G47.30 - SLEEP APNEA, UNSPECIFIED SNOMED Code(s): 25522366 (5) COPD (chronic obstructive pulmonary disease) Current Visit: Yes Status: Chronic Code(s): J44.9 - CHRONIC OBSTRUCTIVE PULMONARY DISEASE, UNSPECIFIED SNOMED Code(s): 22216346 (6) Status post mitral valve repair Current Visit: Yes Status: Acute Code(s): Z98.890 - OTHER SPECIFIED POSTPROCEDURAL STATES SNOMED Code(s): 078582290 (7) CAD (coronary artery disease) Current Visit: Yes Status: Chronic Code(s): I25.10 - ATHSCL HEART DISEASE OF [place] CORONARY ARTERY W/O ANG PCTRS SNOMED Code(s): 30736497 (8) Former smoker Current Visit: No Status: Resolved Code(s): Z87.891 - PERSONAL HISTORY OF NICOTINE DEPENDENCE SNOMED Code(s): 4012450 (9) Hypertension Current Visit: Yes Status: Chronic Code(s): I10 - ESSENTIAL (PRIMARY) HYPERTENSION SNOMED Code(s): 64372670 (10) Alcohol abuse Current Visit: Yes Status: Chronic Code(s): F10.10 - ALCOHOL ABUSE, UNCOMPLICATED SNOMED Code(s): 97696433 (11) GERD (gastroesophageal reflux disease) Current Visit: Yes Status: Chronic Code(s): K21.9 - GASTRO-ESOPHAGEAL REFLUX DISEASE WITHOUT ESOPHAGITIS SNOMED Code(s): 268203707 (12) Obesity (BMI 30-39.9) Current Visit: Yes Status: Chronic Code(s): E66.9 - OBESITY, UNSPECIFIED SNOMED Code(s): 363974101 (13) Family history of premature CAD Current Visit: Yes Status: Chronic Code(s): Z82.49 - FAMILY HX OF I[place]HE[place] HEART DIS AND OTH DIS OF THE CIRC SYS SNOMED Code(s): 779010817 Plan: 1. Continue low-dose aspirin aspirin, statin, Coreg. 2. Will dose Coumadin therapy daily based on daily PT/INR. Goal INR 3.0. Today's INR is 2.8, discontinue IV heparin. 3. Encourage incentive spirometry use 10 times every hour while awake. 4. Will give 40 mg IV Lasix today. 5. Increase activity, ambulate as tolerated. PT/OT/cardiac rehab following. 6. Will monitor daily labs and x-rays. Electrolyte replacement per protocol. 7. Insulin per primary care service. 8. Pain control with current medication regimen. 9. GI prophylaxis with Protonix. DVT prophylaxis with IV heparin, SCDs. 10. Bronchodilators per pulmonology. 11. Discharge planning in progress. May discharge patient to home with home care today, however patient wishes to remain until tomorrow morning. 12. More recommendations to follow. Time with Patient: Greater than 30
[2018-08-23 14:24] VITALS: BMI 37.6
--- NOTE | 2018-08-23 15:16 | PN ---
PROGRESS NOTE I am covering for Dr. Valderrama. DATE OF SERVICE: 08/23/2018 This 53-year-old gentleman who underwent mitral valve replacement as well as 2-vessel CABG is improving significantly. No chest pain. No palpitations. No fever. The patient is receiving breathing treatments. PHYSICAL EXAMINATION: Alert and oriented x3. Pulse 74, blood pressure 128/74, respiration 17, temperature normal, pulse ox 99% on room air. HEENT: Conjunctivae normal. NECK: No jugular venous distention. CARDIOVASCULAR SYSTEM: S1, S2 muffled. RESPIRATORY SYSTEM: Breath sounds diminished at the bases. A few scattered rhonchi and crackles. ABDOMEN: Soft, non-tender. NERVOUS SYSTEM: No focal deficit. LABS: WBC 13.3, hemoglobin 7.5, INR 2.8. AST 76, ALT 144. ASSESSMENT: 1. Status post mitral valve replacement as well as two-vessel coronary artery bypass grafting. 2. History of severe mitral regurgitation and pulmonary edema in the past. 3. History of left atrial appendage thrombosis. 4. Sleep apnea. 5. Atrial fibrillation. 6. History of nicotine dependence. 7. Coumadin monitoring. 8. Increased AST and ALT. RECOMMENDATIONS AND DISCUSSION: In this 53-year-old gentleman who presented with multiple medical issues, at this time we will monitor the patient closely, continue the current management, continue symptomatic treatment, DVT prophylaxis, continue with the beta blockers, antiplatelet gents. Closely follow with Cardiology and Pulmonology. Incentive spirometry. Increase ambulation. Follow closely with Cardiothoracic Surgery. Further recommendations to follow. MMCHASEL / BESSN: [id number] /
[2018-08-23] MEDS ORDERED: FUROSEMIDE 10 MG/ML 4 ML VIAL IV STA (15:19)
--- NOTE | 2018-08-23 16:09 | P.PN ---
Subjective Progress Note Date: 08/23/18 Principal diagnosis: Mitral valve replacement, a chemical valve, 2 vessel bypass surgery and clipping of the atrial appendage, This is a 53-year-old male patient who is being seen in the intensive care unit following his mitral valve replacement surgery. The patient underwent mitral valve replacement, tissue valve, in addition to modified Wolf-Maze procedure, clipping of the appendage and 2 vessel bypass including a BINTA to RCA and SVG to OM1, and the patient is currently intubated on a mechanical ventilator in the intensive care unit. Chest x-ray shows increased vascular congestion. Orotracheal tube is in a good location. The patient has a right IJ Orleans-Noman catheter in place. The patient also has a mediastinal and the left pleural chest tube. The blood gases showed a pH of 7.26 with a pCO2 of 60 and pO2 139. Based on this, I put the patient on avoidance cycle mode assist control at a rate of 20, tidal volume of 550, FiO2 is down to 60% and a PEEP of 20. Follow- up blood gases are still pending for now. Hemodynamically the patient is on no pressors. The patient's mean arterial pressures around 60 to and the patient be given IV albumin. Maintenance fluid is normal saline today to 50 mL an hour. Cardiac index is at 2.6. Pulmonary artery pressure nonelevated. Upper from the chest tube both mediastinal and pleural is a total of 130 mL since his arrival from the operating room. He is producing adequate amount of urine output. He is currently off sedation. He was given a dose of fentanyl 50 g for increased chest wall pain. His cardiac rhythm is paced at the rate of 85. Underlying cardiac rhythm is a block third-degree. On 08/16/2018 patient seen in follow-up in the intensive care unit, patient has been extubated, currently on 2 L per nasal cannula his pulse ox is 96%, afebrile , hemodynamically stable. Currently in sinus rhythm, echo with backup rate. Patient is sitting up in the chair, in no acute distress, lung sounds are clear diminished at the bases, he is working on his incentive spirometer, his ISS effort is 1500 today. PA pressures 39/19, cardiac output and index are 9.9 and 4.1 respectively. Right and mediastinal chest tube output has been 605 ML in the last 24 hours. Santiago catheter is in place, patient is nonoliguric. Her and IV infusions include LR at a rate of 50 ML per hour, and insulin is at 6 units per minute. Chest x-ray has been reviewed and showed stable scattered infiltrates, likely atelectasis. Her pain is reasonably controlled. Today's blood work showed WBC of 12.7, hemoglobin of 10.0, sodium 140 potassium is 4.9, chloride is 107, BUN is 22, creatinine 0.7. On 08/23/2018 patient seen in follow-up on selective care unit, this is postop day 8 status post mitral valve replacement and two-vessel bypass surgery. Patient is doing well, he is ambulating, working on his incentive spirometry, he is achieving 1750 to 2000 ML. No shortness of breath, his pain is under control, today's chest x-ray has been reviewed and shows a component of pulmonary venous Hypertension and interstitial edema, cardiomegaly. Room air pulse ox is 94%, vital signs are stable, lung sounds are for some bibasilar crackles. Today's labs have been reviewed, shows WBC of 13.3, hemoglobin is 7.5 , INR is 2.8, sodium is 132, and the rest of electrolytes and renal profile are within normal limits, patient will receive 5 mg of Coumadin tonight. Anticipate discharge home tomorrow Objective - Vital Signs Vital signs: Vital Signs Temp 98.1 F 08/23/18 15:43 Pulse 84 08/23/18 15:43 Resp 18 08/23/18 15:43 BP 110/56 08/23/18 15:43 Pulse Ox 94 L 08/23/18 15:43 Intake & Output 08/22/18 08/23/18 08/23/18 18:59 06:59 18:59 Intake Total 2706.467 338.568 480 Output Total 2000 500 825 Balance 706.467 -161.432 -345 Weight 126 kg 126 kg Intake: IV 240 80 Lactated Ringers 1,000 ml 240 80 @ 20 mls/hr IV .Q24H [facility] Rx#:[id number] Intake, IV Titration 366.467 258.568 Amount Heparin Sod,Pork in 0.45% 366.467 258.568 NaCl 25,000 unit In 0.45 % NaCl 1 250ml.bag @ 21.1 UNITS/KG/HR 26.81 mls/hr IV .Q9H20M [facility] Rx#: [id number] Oral 2100 480 Output: Urine 2000 500 825 Other: Voiding Method Toilet Toilet Toilet Urinal Urinal Urinal # Voids 1 ABP, PAP, CO, CI - Last Documented Arterial Blood Pressure 137/135 Pulmonary Artery Pressure 40/15 Cardiac Output 9.9 Cardiac Index 4.1 - Exam Gen. appearance, comfortable likely distress, arousable, gabapentin for pain. During up in the chair, in no acute distress Head exam was generally normal. There was no scleral icterus or corneal arcus. Mucous membranes were moist. Neck was supple and without jugular venous distension, thyromegaly, or carotid bruits. Carotids were easily palpable bilaterally. There was no adenopathy. The patient has a right IJ Orleans-Noman catheter in place. Lungs sounds are diminished bilaterally. Breath sounds are equal and symmetrical. No wheezes. No rhonchi. Sternum stable clean and intact. The patient has a chest tube in the right pleura. Cardiac exam revealed the PMI to be normally situated and sized. The rhythm was regular and no extrasystoles were noted during several minutes of auscultation. The first and second heart sounds were normal and physiologic splitting of the second heart sound was noted. There were no murmurs, rubs, clicks, or gallops. The patient rhythm is paced at the rate of 85. Abdominal exam revealed normal bowel sounds. The abdomen was soft, non-tender, and without masses, organomegaly, or appreciable enlargement of the abdominal aorta. Examination of the extremities revealed easily palpable radial, femoral and pedal pulses. There was no cyanosis, clubbing or edema. Examination of the skin revealed no evidence of significant rashes, suspicious appearing nevi or other concerning lesions. Neurologically arousable yet still sedated. Pupils are equal and reactive to light. - Labs CBC & Chem 7: 08/23/18 05:56 08/23/18 05:56 Labs: Abnormal Lab Results - Last 24 Hours (Table) 08/22/18 08/22/18 08/22/18 Range/Units 17:00 20:41 20:53 WBC (3.8-10.6) k/uL RBC (4.30-5.90) m/uL Hgb (13.0-17.5) gm/dL Hct (39.0-53.0) % PT (9.0-12.0) sec INR (<1.2) APTT 79.4 H (22.0-30.0) sec Sodium (137-145) mmol/L POC Glucose (mg/dL) 102 H 110 H (75-99) mg/dL AST (17-59) U/L ALT (21-72) U/L Alkaline Phosphatase (38-126) U/L Total Protein (6.3-8.2) g/dL Albumin (3.5-5.0) g/dL 08/23/18 08/23/18 08/23/18 Range/Units 01:38 05:56 05:56 WBC 13.3 H (3.8-10.6) k/uL RBC 2.57 L (4.30-5.90) m/uL Hgb 7.5 L (13.0-17.5) gm/dL Hct 23.1 L (39.0-53.0) % PT (9.0-12.0) sec INR (<1.2) APTT (22.0-30.0) sec Sodium 132 L (137-145) mmol/L POC Glucose (mg/dL) 103 H (75-99) mg/dL AST 76 H (17-59) U/L ALT 144 H (21-72) U/L Alkaline Phosphatase 180 H (38-126) U/L Total Protein 5.7 L (6.3-8.2) g/dL Albumin 3.2 L (3.5-5.0) g/dL 08/23/18 08/23/18 08/23/18 Range/Units 05:56 06:49 08:24 WBC (3.8-10.6) k/uL RBC (4.30-5.90) m/uL Hgb (13.0-17.5) gm/dL Hct (39.0-53.0) % PT 27.5 H (9.0-12.0) sec INR 2.8 H (<1.2) APTT 92.1 H (22.0-30.0) sec Sodium (137-145) mmol/L POC Glucose (mg/dL) 108 H (75-99) mg/dL AST (17-59) U/L ALT (21-72) U/L Alkaline Phosphatase (38-126) U/L Total Protein (6.3-8.2) g/dL Albumin (3.5-5.0) g/dL Assessment and Plan Plan: 1 mitral valve replacement, mechanical valve, in addition to 2 vessel bypass surgery and clipping of the atrial appendage. Patient is postop day #8 2 post thoracotomy, currently intubated on a mechanical ventilator. Chest x- ray reveals adequate expansion of both lungs. Chest tubes are in place. The patient has some increased pulmonary vascular congestion. Currently on FiO2 of 60% with a PEEP of 10. There is a component of respiratory acidosis and the blood gases in the tidal volume was kept at 550 and the respiratory rate was increased up to 20 3 known history of coronary artery disease with previous stenting of RCA 4 history of severe mitral regurgitation with the current hospital physician Jose cohen and pulmonary edema 5 history of chronic atrial fibrillation, current rhythm is paced at the rate of 85 and underlying postop cardiac rhythm is third-degree AV block 6 history of left atrial appendage clot 7 history of sleep apnea combination of obstructive and central he was being treated with CPAP at a pressure of 9 cm of water 8 hypertension 9 diverticular disease 10 Osteoarthritis Plan: Continue current plan of care, encourage deep breathing and coughing, patient is ambulating, no acute complaints, today's chest x-ray has been reviewed with Dr. Paris, and shows increased interstitium, and blunting of the costophrenic angles, mild fluid overload. INR is 2.8, CT surgery dosing patient's Coumadin. We'll continue to follow, patient is asymptomatic, doing quite well, anticipate discharge home tomorrow. I performed a history & physical examination of the patient and discussed their management with my nurse practitioner, Shonda Dunlap. I reviewed the nurse practitioner's note and agree with the documented findings and plan of care. Lung sounds are clear. The findings and the impression was discussed with the patient. I attest to the documentation by the nurse practitioner. Time with Patient: Less than 30
[2018-08-23 16:41] LABS: Glucose,Whole Blood 122 mg/dL (75-99)
[2018-08-23] MEDS ORDERED: WARFARIN 5 MG TAB PO ONE (18:00)
[2018-08-23] MEDS: SENNOSIDES-DOCUSATE SODIUM 1 EACH TAB PO SCH (20:00)
[2018-08-23 20:05] LABS: Glucose,Whole Blood 117 mg/dL (75-99)
[2018-08-24] MEDS: LACTATED RINGERS 1,000 ML IV SCH (00:59)
[2018-08-24 06:16] LABS: Glucose,Whole Blood 107 mg/dL (75-99)
[2018-08-24] MEDS: INSULIN ASPART 100 UNIT/ML 1 ML 10 ML VIAL SQ SCH ×2 (06:21→12:29)
[2018-08-24] MEDS: CARVEDILOL 1.563 MG TAB PO SCH (06:31)
[2018-08-24] MEDS: PANTOPRAZOLE 40 MG TABLET PO SCH (06:31)
[2018-08-24] MEDS: HYDROcodone/APAP 7.5-325MG 1 EACH TAB PO PRN (06:33)
[2018-08-24 06:38] LABS: Hypochromasia Slight; MCH 28.7 pg (25.0-35.0); MCHC 31.8 g/dL (31.0-37.0); MCV 90.1 fL (80.0-100.0); Mean Platelet Volume 7.1; Platelet Count 295 k/uL (150-450); RBC 2.44 m/uL (4.30-5.90); RDW 15.1 % (11.5-15.5); WBC 11.7 k/uL (3.8-10.6)
[2018-08-24 06:46] LABS: INR 3.2 (<1.2); Prothrombin Time 30.6 sec (9.0-12.0)
[2018-08-24 06:50] LABS: Anion Gap 8 mmol/L; Blood Urea Nitrogen 18 mg/dL (9-20); Calcium 8.7 mg/dL (8.4-10.2); Carbon Dioxide 29 mmol/L (22-30); Chloride 96 mmol/L (98-107); Glucose 83 mg/dL (74-99); Potassium 4.6 mmol/L (3.5-5.1); Sodium 133 mmol/L (137-145)
[2018-08-24] MEDS: CITALOPRAM HYDROBROMIDE 20 MG TAB PO SCH (08:17)
[2018-08-24] MEDS: ATORVASTATIN 40 MG TAB PO SCH (08:17)
[2018-08-24] MEDS: ASPIRIN 81 MG PO SCH (08:17)
[2018-08-24] MEDS: IPRATROPIUM-ALBUTEROL 3 ML NEB INHALATION SCH ×2 (08:20→11:39)
[2018-08-24 08:26] VITALS: BP 117/71; RESP 18; TEMP 97.8
[2018-08-24] MEDS ORDERED: FUROSEMIDE 10 MG/ML 4 ML VIAL IV STA (09:08)
[2018-08-24] MEDS ORDERED: CARVEDILOL 6.25 MG TAB PO SCH (09:15)
[2018-08-24 11:40] VITALS: PULSE 76
[2018-08-24 11:44] LABS: Glucose,Whole Blood 137 mg/dL (75-99)
--- NOTE | 2018-08-24 13:39 | P.PN ---
Subjective Progress Note Date: 08/24/18 Principal diagnosis: Status post mitral valve replacement and two-vessel CABG postoperative day # 9 This is a 53-year-old male patient who is being seen in the intensive care unit following his mitral valve replacement surgery. The patient underwent mitral valve replacement, tissue valve, in addition to modified Wolf-Maze procedure, clipping of the appendage and 2 vessel bypass including a BINTA to RCA and SVG to OM1, and the patient is currently intubated on a mechanical ventilator in the intensive care unit. Chest x-ray shows increased vascular congestion. Orotracheal tube is in a good location. The patient has a right IJ [place]-N[place] catheter in place. The patient also has a mediastinal and the left pleural chest tube. The blood gases showed a pH of 7.26 with a pCO2 of 60 and pO2 139. Based on this, I put the patient on avoidance cycle mode assist control at a rate of 20, tidal volume of 550, FiO2 is down to 60% and a PEEP of 20. Follow- up blood gases are still pending for now. Hemodynamically the patient is on no pressors. The patient's mean arterial pressures around 60 to and the patient be given IV albumin. Maintenance fluid is normal saline today to 50 mL an hour. Cardiac index is at 2.6. Pulmonary artery pressure nonelevated. Upper from the chest tube both mediastinal and pleural is a total of 130 mL since his arrival from the operating room. He is producing adequate amount of urine output. He is currently off sedation. He was given a dose of fentanyl 50 g for increased chest wall pain. His cardiac rhythm is paced at the rate of 85. Underlying cardiac rhythm is a block third-degree. On 08/16/2018 patient seen in follow-up in the intensive care unit, patient has been extubated, currently on 2 L per nasal cannula his pulse ox is 96%, afebrile , hemodynamically stable. Currently in sinus rhythm, echo with backup rate. Patient is sitting up in the chair, in no acute distress, lung sounds are clear diminished at the bases, he is working on his incentive spirometer, his ISS effort is 1500 today. PA pressures 39/19, cardiac output and index are 9.9 and 4.1 respectively. Right and mediastinal chest tube output has been 605 ML in the last 24 hours. Santiago catheter is in place, patient is nonoliguric. Her and IV infusions include LR at a rate of 50 ML per hour, and insulin is at 6 units per minute. Chest x-ray has been reviewed and showed stable scattered infiltrates, likely atelectasis. Her pain is reasonably controlled. Today's blood work showed WBC of 12.7, hemoglobin of 10.0, sodium 140 potassium is 4.9, chloride is 107, BUN is 22, creatinine 0.7. The patient was seen again today 08/17/2018 in follow-up in the intensive care unit. He is currently sitting up in a chair at the bedside. He is awake and alert in no acute distress. He denies any worsening shortness of breath, cough or congestion. His pain is well controlled. He is working well with the incentive spirometer. He is maintaining good O2 saturations in the upper 90s on 3 L/m per nasal cannula. His x-ray reveals cardiomegaly with bilateral platelike atelectasis and small effusion. Mediastinal/right pleural chest tube remains in place. He's been afebrile. Hemodynamically stable. White count 11.8. Hemoglobin 8.9. Creatinine 0.78. Remains on lactated Ringer's at 50 MLS per hour. Insulin drip at 4.5 units per hour. On 08/18/2089 seeing this patient for a follow-up. The patient has postop day # 3. He underwent mitral valve replacement. He also underwent three-vessel bypass surgery. Hemodynamically stable. He is in a sinus rhythm. Note that he also had a modified maze procedure using radiofrequency and cryoablation. The patient has no complaints. The [place]-Noman catheter has been removed. He did encounter some bleeding from the puncture site where pressure was applied and currently hemostasis is achieved. He is cardiac rhythm is sinus with a first-degree AV block. He is swallowing. He is ambulating. The patient has chest tubes in place and the patient's right-sided chest tube has drained 5 ML' s of serosanguineous drainage over the past 8 hours and 300 over the past 24 hours without evidence of any air leak. The patient is pulling approximately 1500 mL on the incentive spirometer. Pulse ox is 95% liters of oxygen by nasal cannula. Chest x-ray shows adequate expansion of both lungs. Chest tube is in good location. No pneumothorax. On 08/19/2018, patient was seen on follow-up, in the ICU, he is postoperative day #4. Patient had a mitral valve replacement and two-vessel bypass surgery. Patient is doing great, relatively asymptomatic, denies any cough no wheezing no shortness of breath, presently is on room air. Doing great with incentive spirometry, chest x-ray showed right-sided chest tube in place, minimal atelectasis at the bases especially at the left base. Patient again is relatively asymptomatic. CBC is relatively normal hemoglobin is 7.7. Basic metabolic profile is normal, renal profile is normal. Liver enzymes were noted to be slightly elevated. On 08/20/2018, patient remains in the ICU, his postoperative day #5. Patient had a mitral valve replaced and two-vessel bypass surgery. Doing great, relatively asymptomatic, remains on room air. No shortness of breath no cough no wheezing. Chest x-ray was reviewed, and most showed postoperative changes, mostly expected changes. His CBC showed a hemoglobin of 7.1. A left was normal renal profile is normal. Reevaluated today on 08/21/2018, patient remains in the ICU, he is postoperative day #6. Patient is doing well, already ambulating in the hallway in the ICU. No cough no wheezing no shortness of breath, no chest pain. Chest x-ray showed subsegmental atelectasis, right upper lobe pleural-based density Which is relatively new, and was not present on previous x-rays prior to his surgery. It is most likely a fluid collection in that area, and will likely resolve with time. Reevaluated today on 08/22/2018, postoperative day #7, doing well, continues to ambulate in the hallway, patient is relatively asymptomatic. His Coumadin remains subtherapeutic, and hoping that his Coumadin will become therapeutic by tomorrow and could be discharged home. Ration is ambulating on his own fine. And he is in no distress. All his labs and chest x-ray were reviewed. Reevaluated today on 08/24/2018, his postoperative day #9. Patient is doing great, his INR is just around 3.0, patient is being considered for discharge today. No cough no wheezing no shortness of breath no chest pain. Patient is on room air. Objective - Vital Signs Vital signs: Vital Signs Temp 97.8 F 08/24/18 08:15 Pulse 76 08/24/18 11:54 Resp 18 08/24/18 08:15 BP 117/71 08/24/18 08:15 Pulse Ox 94 L 08/24/18 08:15 Intake & Output 08/23/18 08/24/18 08/24/18 18:59 06:59 18:59 Intake Total 480 780 Output Total 2325 1950 250 Balance -1845 -1170 -250 Weight 126 kg 123.1 kg Intake: Oral 480 780 Output: Urine 2324 1950 250 Other: Voiding Method Toilet Toilet Urinal Urinal # Voids 1 1 ABP, PAP, CO, CI - Last Documented Arterial Blood Pressure 137/135 Pulmonary Artery Pressure 40/15 Cardiac Output 9.9 Cardiac Index 4.1 - Exam Physical Exam: Revealed a 53-year-old white male in no distress. Head: Atraumatic, normocephalic. HEENT: PERRLA, EOMI, no icterus. [Neck is supple.] [No neck masses.] [No thyromegaly.] [No JVD.] Moist mucous membranes. Throat is clear. Chest: [Clear throughout, no crackles, no rhonchi, no wheezes.] Surgical site is clean and dry. Cardiac Exam: [Normal S1 and S2, no S3 gallop, no murmur.] Abdomen: Obese, [Soft, nontender, no megaly, no rebound, no guarding, normal bowel sounds.] Extremities: [No clubbing, no edema, no cyanosis.] Neurological Exam: [No focal neurologic deficit.] Psychiatric: Normal mood, affect and mental status examination. Skin: No rashes. - Labs CBC & Chem 7: 08/24/18 05:41 08/24/18 05:41 Labs: Abnormal Lab Results - Last 24 Hours (Table) 08/23/18 08/23/18 08/24/18 Range/Units 16:40 20:04 05:41 WBC 11.7 H (3.8-10.6) k/uL RBC 2.44 L (4.30-5.90) m/uL Hgb 7.0 L (13.0-17.5) gm/dL Hct 22.0 L (39.0-53.0) % PT (9.0-12.0) sec INR (<1.2) Sodium (137-145) mmol/L Chloride (98-107) mmol/L POC Glucose (mg/dL) 122 H 117 H (75-99) mg/dL 08/24/18 08/24/18 08/24/18 Range/Units 05:41 05:41 06:15 WBC (3.8-10.6) k/uL RBC (4.30-5.90) m/uL Hgb (13.0-17.5) gm/dL Hct (39.0-53.0) % PT 30.6 H (9.0-12.0) sec INR 3.2 H (<1.2) Sodium 133 L (137-145) mmol/L Chloride 96 L (98-107) mmol/L POC Glucose (mg/dL) 107 H (75-99) mg/dL 08/24/18 Range/Units 11:43 WBC (3.8-10.6) k/uL RBC (4.30-5.90) m/uL Hgb (13.0-17.5) gm/dL Hct (39.0-53.0) % PT (9.0-12.0) sec INR (<1.2) Sodium (137-145) mmol/L Chloride (98-107) mmol/L POC Glucose (mg/dL) 137 H (75-99) mg/dL Assessment and Plan Assessment: Impression: 1 status post mitral valve replacement and two-vessel bypass surgery postoperative day #9 2 history of severe mitral valve regurgitation and pulmonary edema in the past. 3 history of left atrial appendage clot. 4 obstructive sleep apnea syndrome on CPAP at night. 5 multiple comorbidities including obesity, hypertension, osteoarthritis, diverticular disease, and known history of coronary artery disease with previous stenting of RCA. Recommendation: Continue incentive spirometry, ambulation, agree with discharge planning home today follow-up on outpatient basis. Time with Patient: Less than 30
--- NOTE | 2018-08-24 13:57 | P.DS ---
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 Consult: post cardiac surgery Do you want consulting provider notified?: Yes Primary care physician: Chandler Valderrama - Discharge Diagnosis(es) (1) Mitral regurgitation Current Visit: Yes Status: Chronic (2) Mitral stenosis Current Visit: Yes Status: Chronic (3) Paroxysmal atrial fibrillation Current Visit: No Status: Resolved (4) Sleep apnea Current Visit: Yes Status: Chronic (5) COPD (chronic obstructive pulmonary disease) Current Visit: Yes Status: Chronic (6) Status post mitral valve repair Current Visit: Yes Status: Acute (7) CAD (coronary artery disease) Current Visit: Yes Status: Chronic (8) Former smoker Current Visit: No Status: Resolved (9) Hypertension Current Visit: Yes Status: Chronic (10) Alcohol abuse Current Visit: Yes Status: Chronic (11) GERD (gastroesophageal reflux disease) Current Visit: Yes Status: Chronic (12) Obesity (BMI 30-39.9) Current Visit: Yes Status: Chronic (13) Family history of premature CAD Current Visit: Yes Status: Chronic Hospital Course: FINAL DIAGNOSIS: 1. Mitral regurgitation 2. Mitral stenosis 3. Paroxysmal atrial fibrillation 4. Coronary artery disease 5. History of cardioversions 6. Hypertension 7. Hyperlipidemia 8. Obstructive sleep apnea 9. Previous tobacco dependence 10. Mild COPD with preoperative FEV1 60% of predicted 11. Daily EtOH use 12. GERD 13. Obesity 14. Family history of premature coronary artery disease 15. Postoperative acute blood loss anemia, expected outcome PRINCIPAL PROCEDURE: 1. Mitral valve replacement with #31/33 On-X mechanical mitral valve 2. Coronary bypass grafting 2 with right internal mammary artery to the right coronary artery, reverse saphenous vein graft off the aorta to the second obtuse marginal artery 3. Endovascular vein harvest of the left greater saphenous vein 4. Clip ligation of the left atrial appendage with a #40 mm AtriClip 5. Complete left-sided maze procedure using radiofrequency ablation and cryoablation 6. Intraoperative transesophageal echocardiogram HISTORY OF PRESENT ILLNESS: This is a 53-year-old gentleman who follows with Dr. Valderrama on an outpatient basis. He also has been followed by Dr. Valles on an outpatient basis for atrial fibrillation with multiple cardioversions as well as paroxysmal atrial fibrillation on anticoagulation and coronary artery disease. He was admitted back in June 2018 to the hospital for complaints of increasing shortness of breath as well as chest pain and was thought to have some component of heart failure. He was treated and released to follow-up with cardiology. He was recommended to undergo transesophageal echocardiogram and cardioversion for atrial fibrillation. His transthoracic echocardiogram demonstrated continued severe 3-4+ mitral regurgitation without thrombus in the left atrial appendage. He was converted during cardioversion, however he continued to have increasing shortness of breath making it difficult for him to even work. Heart catheterization was recommended demonstrating restenotic lesion in the proximal RCA and circumflex with 55% stenosis, representing progression of coronary artery disease. The patient was referred to Dr. Kaur from cardiothoracic surgery. He was recommended to undergo mechanical mitral valve replacement and coronary bypass graft surgery. The usual perioperative course was discussed in detail the patient and his family, all risks and benefits were explained, all questions were answered, and consent was obtained to proceed with surgery. The patient obtained dental clearance prior to surgery. HOSPITAL COURSE: The patient was brought to the hospital on 08/15/2018, taken to the preoperative area, prepared in the usual fashion, and subsequently taken to the operating room where Dr. Kaur performed mitral valve replacement with # 31/33 On-X mechanical mitral valve, coronary bypass grafting 2 with right internal mammary artery to the right coronary artery, reverse saphenous vein graft off the aorta to the second obtuse marginal artery, endovascular vein harvest of the left greater saphenous vein, clip ligation of the left atrial appendage with a #40 mm AtriClip, complete left-sided maze procedure using radiofrequency ablation and cryoablation, and intraoperative transesophageal echocardiogram. Upon completion of surgery the patient was transferred to the cardiovascular intensive care unit where he was recovered, monitored hemodynamically, and where he progressed to cardiac rehabilitation phase 1. He was extubated, all lines, tubes, and drips were discontinued when appropriate, and he was transferred to [address] [place] [address] for further monitoring and rehabilitation. His oxygen was titrated down, he continued to work with physical and occupational therapy, he was tolerating oral diet, his pain was controlled, his INR level became therapeutic, and he was ready to be discharged to home with home care on postoperative day #9. He received written and verbal instruction regarding his medications including the need to follow up with Dr. Valles in the office on August 26 for PT/INR level, activity restrictions, signs and symptoms requiring physician notification, and follow- up appointments. COMPLICATIONS: The patient experienced postoperative acute blood loss anemia without transfusion requirement. Plan - Discharge Summary Discharge Rx Participant: No New Discharge Prescriptions: New Carvedilol [Coreg] 6.25 mg PO AC-BID #60 tab HYDROcodone/APAP 7.5-325MG [Buckhorn 7.5-325] 2 each PO Q6H PRN #60 tab PRN Reason: Pain Pantoprazole [Protonix] 40 mg PO AC-BRKFST #30 tablet.dr Tse-Docusate Sodium [Senokot-S] 2 each PO HS #14 tab Warfarin Sodium [Coumadin] 3 mg PO DAILY #7 tab Continue Multivitamin [Men's Multi-Vitamin] 1 tab PO DAILY Fish Oil/Dha/Epa [Fish Oil 1,200 mg Fish Oil] 1 cap PO DAILY Citalopram Hydrobromide [CeleXA] 10 mg PO DAILY Umeclidinium Brm/Vilanterol Tr [Anoro Ellipta 62.5-25 Mcg INH] 1 puff INHALATION RT-DAILY Umeclidinium Brm/Vilanterol Tr [Anoro Ellipta 62.5-25 Mcg INH] 62.5 mcg INHALATION DAILY Aspirin 81 mg PO DAILY #30 chew Atorvastatin [Lipitor] 80 mg PO HS #30 tab Furosemide [Lasix] 40 mg PO QAM #30 tab Discontinued Nitroglycerin Sl Tabs [Nitrostat] 0.4 mg SUBLINGUAL Q5M PRN #25 tab PRN Reason: Chest Pain Omeprazole 20 mg PO DAILY Metoprolol Tartrate [Lopressor] 50 mg PO BID Lisinopril [Zestril] 2.5 mg PO DAILY 30 Days #30 tab Furosemide [Lasix] 20 mg PO DAILY@1600 Amiodarone [Cordarone] 200 mg PO TID #90 tab Clopidogrel [Plavix] 75 mg PO DAILY Rivaroxaban [Xarelto] 20 mg PO DAILY Discharge Medication List Multivitamin [Men's Multi-Vitamin] 1 tab PO DAILY 01/22/14 [History] Fish Oil/Dha/Epa [Fish Oil 1,200 mg Fish Oil] 1 cap PO DAILY 11/06/17 [History] Citalopram Hydrobromide [CeleXA] 10 mg PO DAILY 04/14/18 [History] Umeclidinium Brm/Vilanterol Tr [Anoro Ellipta 62.5-25 Mcg INH] 1 puff INHALATION RT-DAILY 07/04/18 [History] Umeclidinium Brm/Vilanterol Tr [Anoro Ellipta 62.5-25 Mcg INH] 62.5 mcg INHALATION DAILY 08/15/18 [History] Aspirin 81 mg PO DAILY #30 chew 08/24/18 [Rx] Atorvastatin [Lipitor] 80 mg PO HS #30 tab 08/24/18 [Rx] Carvedilol [Coreg] 6.25 mg PO AC-BID #60 tab 08/24/18 [Rx] Furosemide [Lasix] 40 mg PO QAM #30 tab 08/24/18 [Rx] HYDROcodone/APAP 7.5-325MG [Buckhorn 7.5-325] 2 each PO Q6H PRN #60 tab 08/24/18 [ Rx] Pantoprazole [Protonix] 40 mg PO AC-BRKFST #30 tablet.dr 08/24/18 [Rx] Sennosides-Docusate Sodium [Senokot-S] 2 each PO HS #14 tab 08/24/18 [Rx] Warfarin Sodium [Coumadin] 3 mg PO DAILY #7 tab 08/24/18 [Rx] Follow up Appointment(s)/Referral(s): Amy Loving NPC [Nurse Practitioner] - 08/29/18 1:15 pm Lily Valles MD [STAFF PHYSICIAN] - 08/26/18 (Follow up in Dr. Valles's office Sunday for PT/INR for Coumadin dosing. Further appointment to be made from there.) Chandler Valderrama MD [Primary Care Provider] - 2 Weeks (please make appointment when the office opens on Sunday) [facility], [NON-STAFF] - Jose Kaur MD [STAFF PHYSICIAN] - 10/03/18 1:15 pm Lien Garcia MD [STAFF PHYSICIAN] - 09/13/18 8:45 am Ambulatory/Diagnostic Orders: Complete Blood Count w/diff [LAB.AMB] Time Frame: 3 Days, Location: None Selected Comprehensive Metabolic Panel [LAB.AMB] Time Frame: 3 Days, Location: None Selected Prothrombin Time INR [LAB.AMB] Time Frame: 08/26/18, Location: None Selected Activity/Diet/Wound Care/Special Instructions: DISCHARGE INSTRUCTIONS: 1. No driving for 4 weeks, or until physician gives their ok. 2. The patient should sleep in their own bed, no medical bed needed. 3. Stairs are not an issue. If the bedroom is upstairs, it is advised that the patient go up at night and down in the morning for the first week. Go slowly, using handrail and take 1 step at a time. 4. LUKE hose are to be worn for 30 days or until physician discontinues. 5. Heart hugger is to be worn 100% of the time until physician discontinues.( except when showering) 6. No lifting, pushing, or pulling more than 10 pounds for 12 weeks. The physician will advise of any restriction changes. 7. The patient is expected to continue the prescribed walking program. 8. Continue pain control per as needed orders. 9. Continue with incentive spirometry and splinting/heart hugger until otherwise directed by the physician. 10. Must shower daily using liquid antibacterial soap and a separate white washcloth for each individual incision. 11. Routine sternal incision care. No powders, lotions, ointments on incisions. 12. Please call surgeon/[facility] for temp greater than 101 F or purulent drainage from incisions. 13. Narcotic medications were discussed with the patient, including the potential for misuse, addiction, and abuse. Opiod Start Talking form was reviewed with the patient. 14. All prescriptions given by surgeon for 30 days. Refills need to be filled through credit adjuster/primary care physician. 15. A Red armband has been placed on the patient. It should be worn for 30 days post surgery and will be removed by the cardiac surgeons. If an ER visit is necessary, please make sure the number on the Red armband is called. HOME HEALTH SERVICES TO PROVIDE: RN SKILLED HOME CARE SERVICES FOR POST-OP SURGICAL PATIENTS WITH THE FOLLOWING: Coronary Artery Bypass Surgery (CABG), Mitral Valve Replacement/ Repair ( MVR), Aortic Valve Replacement/Repair (AVR) RN TO CONTINUE EDUCATION FROM ``ROAD TO A HEALTH HEART PATIENT EDUCATION MANUAL (GIVEN TO PATIENT IN THE HOSPITAL) MEDICATION RECONCILIATION WITH EDUCATION NEEDED ON FIRST HOME VISIT EMPHASIZE IMPORTANCE OF WEARING BREAST SUPPORT/HEART HUGGER ENCOURAGE USE OF INCENTIVE SPIROMETER 10 X EVERY HOUR WHILE AWAKE ENCOURAGE UTILIZATION OF LOWER EXTREMITY COMPRESSION STOCKINGS/LUKE HOSE and ELEVATE LEGS ABOVE LEVEL OF HEART WHILE AT REST. ENCOURAGE AMBULATION 3-5x/day INCREASING TOLERATES, WHILE AVOID EXTREMES IN TEMPERATURE FREQUENCY: RN TO OPEN THE PATIENT WITHIN 24 HOURS OF DISCHARGE FROM THE HOSPITAL WITH TELEHEALTH INSTALLED AT [facility], RN TO VISIT 2-3 X A WEEK FOR 4 WEEKS ESTABLISHED BY PATIENT NEEDS. LABORATORY: CBC, CMP TO BE DRAWN ON THE THIRD DAY HOME, (RAN STAT) FAX RESULTS TO [phone]. For patients on Coumadin, PT/INR to be drawn SundayAugust [address] Valles's office. Further dosing of Coumadin by Dr. Valles. TELEHEALTH PARAMETERS: WEIGHT: NOTIFY MD OF WEIGHT GAIN OF 2 LBS IN 24 HOURS OR 5 LBS IN ONE WEEK HR: NOTIFY MD OF HR <55 BPM OR HR>100 BPM BP: NOTIFY MD IF BP <90/55 OR BP>140/100 O2 SAT: NOTIFY MD IF PO2<93% ON ROOM AIR SEND TELEHEALTH REPORT TO SASH INSTALLER AND CARDIOVASCULAR SURGEON THE FIRST WEEK OF CARE AND THEN BI-WEEKLY. PLEASE ADDITIONALLY COMMUNICATE ANY ABNORMALS AND NEW FINDINGS TO THE SURGEONS OFFICE. Discharge Disposition: HOME WITH HOME HEALTH SERVICES
--- NOTE | 2018-08-24 22:41 | PN ---
PROGRESS NOTE Mr. Hare is a gentleman status post mitral valve replacement and two-vessel bypass. He is doing well. His INR is 3.3. Plan is to increase activity and discharge him and we will do a protime check on Sunday in 48 hours. He will be on 3 mg daily of Coumadin. He is maintaining sinus rhythm but has gone into atrial fibrillation in and out with controlled rate. Patient also had a maze procedure performed. Blood pressure is stable. S1, S2 with a short systolic murmur at the apex is audible. Prosthetic valve clicks are audible. Lungs are clear.. Abdomen and lower extremity exam is unchanged Plan is to discharge the patient and he will have a PT/INR in our office on Sunday. MMODL / IJN: [id number] /
== END 2018-08-24 14:02 | disposition home health service (06) | DRG 220 ==
LOC: 2ORMAIN 05:36 → 2SICU 15:14 → 3SCARD 08-23 06:43
PROVIDERS: ADMIT Thoracic Surgery (Cardiothoracic Vascular Surgery); ATTEND Thoracic Surgery (Cardiothoracic Vascular Surgery)
PROC: 02RG0JZ Replacement of Mitral Valve with Synthetic Substitute, Open Approach (ICD-10-PCS; principal; 2018-08-15 08:00)
PROC: 02100Z9 Bypass Coronary Artery, One Artery from Left Internal Mammary, Open Approach (ICD-10-PCS; principal; 2018-08-15 08:00)
PROC: B246ZZ4 Ultrasonography of Right and Left Heart, Transesophageal (ICD-10-PCS; principal; 2018-08-15 08:00)
PROC: 5A1221Z Performance of Cardiac Output, Continuous (ICD-10-PCS; principal; 2018-08-15 08:00)
PROC: 02580ZZ Destruction of Conduction Mechanism, Open Approach (ICD-10-PCS; principal; 2018-08-15 08:00)
PROC: 06BQ4ZZ Excision of Left Saphenous Vein, Percutaneous Endoscopic Approach (ICD-10-PCS; principal; 2018-08-15 08:00)
PROC: 02L70CK Occlusion of Left Atrial Appendage with Extraluminal Device, Open Approach (ICD-10-PCS; principal; 2018-08-15 08:00)
PROC: 021009W Bypass Coronary Artery, One Artery from Aorta with Autologous Venous Tissue, Open Approach (ICD-10-PCS; principal; 2018-08-15 08:00)
DX: I05.2 Rheumatic mitral stenosis with insufficiency (principal); D62 Acute posthemorrhagic anemia; E87.2 Acidosis; I44.2 Atrioventricular block, complete; I48.1 Persistent atrial fibrillation; J98.11 Atelectasis; E66.9 Obesity, unspecified; E78.5 Hyperlipidemia, unspecified; F10.10 Alcohol abuse, uncomplicated; F17.200 Nicotine dependence, unspecified, uncomplicated; G47.33 Obstructive sleep apnea (adult) (pediatric); I11.0 Hypertensive heart disease with heart failure; I25.10 Atherosclerotic heart disease of native coronary artery without angina pectoris; I48.0 Paroxysmal atrial fibrillation; I48.2 Chronic atrial fibrillation; I50.9 Heart failure, unspecified; J44.9 Chronic obstructive pulmonary disease, unspecified; K21.9 Gastro-esophageal reflux disease without esophagitis; K57.90 Diverticulosis of intestine, part unspecified, without perforation or abscess without bleeding; M19.90 Unspecified osteoarthritis, unspecified site; R13.10 Dysphagia, unspecified; Z79.01 Long term (current) use of anticoagulants; Z79.02 Long term (current) use of antithrombotics/antiplatelets; Z79.82 Long term (current) use of aspirin; Z79.899 Other long term (current) drug therapy; Z82.49 Family history of ischemic heart disease and other diseases of the circulatory system; Z95.1 Presence of aortocoronary bypass graft; Z95.5 Presence of coronary angioplasty implant and graft; Z99.89 Dependence on other enabling machines and devices; Z88.0 Allergy status to penicillin; Z68.36 Body mass index [BMI] 36.0-36.9, adult
CPT/HCPCS: 71045; 71046; 80048; 80053; 82330; 82805; 83735; 84100; 85025; 85027; 85520; 85610; 85730; 86850; 86891; 86900; 86901; 86920; 88305; 94002; 94640

== ENCOUNTER → 2018-11-12 | Outpatient (CLI) | payer BC ==
[2018-11-12 18:35] LABS: Anion Gap 10.2 mmol/L (4.00-12.00); Carbon Dioxide 28.8 mmol/L (21.6-31.8); Potassium 4.1 mmol/L (3.5-5.5)
== END | disposition home or self-care (01) ==
LOC: LABWHC1 11:06
PROVIDERS: ATTEND Nurse Practitioner Adult Health
DX: I34.0 Nonrheumatic mitral (valve) insufficiency (principal); Z95.1 Presence of aortocoronary bypass graft
CPT/HCPCS: 36415; 80048

== ENCOUNTER → 2018-12-10 | Outpatient (CLI) | payer BC ==
[2018-12-10 16:24] LABS: Anion Gap 10.2 mmol/L (4.00-12.00); Calcium 10.2 mg/dL (8.7-10.3); Carbon Dioxide 32.8 mmol/L (21.6-31.8)
== END | disposition home or self-care (01) ==
LOC: LABWHC1 09:43
PROVIDERS: ATTEND Nurse Practitioner
DX: I10 Essential (primary) hypertension (principal)
CPT/HCPCS: 36415; 80048

== ENCOUNTER → 2018-12-30 | Outpatient (CLI) | payer BC ==
[2018-12-30 17:20] LABS: Calcium 10.1 mg/dL (8.7-10.3); Potassium 4.3 mmol/L (3.5-5.5)
== END ==
LOC: LABWHC1 08:40
PROVIDERS: ATTEND Nurse Practitioner
DX: I10 Essential (primary) hypertension (principal)
CPT/HCPCS: 36415; 80048

== ENCOUNTER → 2019-05-08 | Outpatient (CLI) | payer BC ==
[2019-05-08 12:02] LABS: African American GFR (CKD) 110.3 (60.0-200.0); Anion Gap 7.3 mmol/L (4.00-12.00); BUN/Creat Ratio 14.44 Ratio (12.00-20.00); Calcium 9.9 mg/dL (8.7-10.3); Carbon Dioxide 29.7 mmol/L (21.6-31.8); Magnesium 1.7 mg/dL (1.5-2.4); Potassium 3.9 mmol/L (3.5-5.5)
== END ==
LOC: LABWHC1 07:41
PROVIDERS: ATTEND Nurse Practitioner
DX: I48.1 Persistent atrial fibrillation (principal)
CPT/HCPCS: 36415; 80048; 83735

== ENCOUNTER 2019-05-20 19:18 | Emergency (ER) | payer BC ==
[2019-05-20 19:30] VITALS: RESP 18; TEMP 97.8
[2019-05-20] MEDS ORDERED: ACETAMINOPHEN TAB 500 MG TAB PO STA (19:47)
[2019-05-20] MEDS ORDERED: PROCHLORPERAZINE 5 MG TAB PO STA (19:47)
[2019-05-20] MEDS ORDERED: diphenhydrAMINE 50 MG CAP PO STA (19:47)
--- NOTE | 2019-05-20 20:06 | ED ---
Head Injury HPI - General Chief complaint: Head Injury Stated complaint: head injury last week, Headaches, nausea Time Seen by Provider: 05/20/19 19:35 Source: patient, RN notes reviewed, old records reviewed Mode of arrival: ambulatory Limitations: no limitations - History of Present Illness Initial comments: This is a 54-year-old male the ER for evaluation resents today for evaluation of headache. Left-sided headache. No prior history of headaches. Denies any recent fevers or neck pain. No neurological deficits. No worsening or improving factors. Patient states symptoms began a for about 5 days when he began to have a left-sided headache he said he did hit his head. At time. On blood thinners. They do not think the head injury was enough to warrant any significant injury or trauma causing him to have headaches. No nausea no vomiting - Related Data Home Medications Medication Instructions Recorded Confirmed Multivitamin [Men's Multi-Vitamin] 1 tab PO DAILY 01/22/14 05/20/19 Fish Oil/Dha/Epa [Fish Oil 1,200 1 cap PO DAILY 11/06/17 05/20/19 mg Fish Oil] Umeclidinium Brm/Vilanterol Tr 1 puff INHALATION RT-DAILY 07/04/18 05/20/19 [Anoro Ellipta 62.5-25 Mcg INH] Carvedilol [Coreg] 6.25 mg PO DAILY@1600 05/20/19 05/20/19 Carvedilol [Coreg] 12.5 mg PO DAILY 05/20/19 05/20/19 Furosemide [Lasix] 20 mg PO DAILY@1600 05/20/19 05/20/19 Furosemide [Lasix] 40 mg PO DAILY 05/20/19 05/20/19 HYDROcodone/APAP 7.5-325MG [[place] 1 - 2 tab PO Q6H PRN 05/20/19 05/20/19 7.5-325] Losartan [Cozaar] 50 mg PO HS 05/20/19 05/20/19 Magnesium Oxide [Mag-Ox] 500 mg PO HS 05/20/19 05/20/19 Metolazone [Zaroxolyn] 2.5 mg PO WESA@0630 05/20/19 05/20/19 Sertraline [Zoloft] 50 mg PO DAILY 05/20/19 05/20/19 Warfarin [Coumadin] 7.5 mg PO HS 05/20/19 05/20/19 Previous Rx's Medication Instructions Recorded Aspirin 81 mg PO DAILY #30 chew 08/24/18 Atorvastatin [Lipitor] 80 mg PO HS #30 tab 08/24/18 Pantoprazole [Protonix] 40 mg PO AC-BRKFST #30 tablet. 08/24/18 Allergies/Adverse reactions: Allergies Allergy/AdvReac Type Severity Reaction Status Date / Time Penicillins Allergy Unknown Verified 05/20/19 19:42 Childhood Review of Systems ROS Statement: Those systems with pertinent positive or pertinent negative responses have been documented in the HPI. ROS Other: All systems not noted in ROS Statement are negative. Past Medical History Past Medical History: Atrial Fibrillation, Coronary Artery Disease (CAD), Heart Failure, GERD/Reflux, Hyperlipidemia, Hypertension, Sleep Apnea/CPAP/BIPAP Additional Past Medical History / Comment(s): . History of Any Multi-Drug Resistant Organisms: None Reported Past Surgical History: Appendectomy, Heart Catheterization With Stent Additional Past Surgical History / Comment(s): cardioversions x 3, stent to RCA,DYLAN X2,colonoscopy, EGD, Past Anesthesia/Blood Transfusion Reactions: No Reported Reaction Date of Last Stent Placement:: 01/22/18 Past Psychological History: No Psychological Hx Reported Smoking Status: Former smoker Past Alcohol Use History: None Reported Past Drug Use History: None Reported - Past Family History Father Family Medical History: Congestive Heart Failure (CHF) Additional Family Medical History / Comment(s): Father from CHF at the age of 68yrs. Mother Family Medical History: No Reported History Additional Family Medical History / Comment(s): Mother at the age of 62 or 63 yrs from myasthenia gravis. General Exam Limitations: no limitations General appearance: alert, in no apparent distress Head exam: Present: atraumatic, normocephalic, normal inspection Eye exam: Present: normal appearance, PERRL, EOMI. Absent: scleral icterus, conjunctival injection, periorbital swelling ENT exam: Present: normal exam, mucous membranes moist Neck exam: Present: normal inspection. Absent: tenderness, meningismus, lymphadenopathy Respiratory exam: Present: normal lung sounds bilaterally. Absent: respiratory distress, wheezes, rales, rhonchi, stridor Cardiovascular Exam: Present: regular rate, normal rhythm, normal heart sounds. Absent: systolic murmur, diastolic murmur, rubs, gallop, clicks GI/Abdominal exam: Present: soft, normal bowel sounds. Absent: distended, tenderness, guarding, rebound, rigid Extremities exam: Present: normal inspection, full ROM, normal capillary refill. Absent: tenderness, pedal edema, joint swelling, calf tenderness Back exam: Present: normal inspection Neurological exam: Present: alert, oriented X3, CN II-XII intact Psychiatric exam: Present: normal affect, normal mood Skin exam: Present: warm, dry, intact, normal color. Absent: rash Course Vital Signs 05/20/19 19:27 Temperature 97.8 F Pulse Rate 69 Respiratory 18 Rate Blood Pressure 163/105 O2 Sat by Pulse 98 Oximetry - Reevaluation(s) Reevaluation #1: 05/20/19 20:05 Medical record is reviewed Reevaluation #2: 05/20/19 20:05 Headaches are improved Medical Decision Making - Medical Decision Making 54 male the ER for evaluation. Patient presented for headache today. Headache now currently resolved, patient will be started on anti-inflammatories and can be discharged home - Radiology Data Radiology results: report reviewed (CT brain negative for acute disease), image reviewed Disposition Clinical Impression: Headache Disposition: HOME SELF-CARE Condition: Good Instructions (If sedation given, give patient instructions): Acute Headache (ED) Is patient prescribed a controlled substance at d/c from ED?: No Referrals: Chandler Valderrama MD [Primary Care Provider] - 1-2 days
--- NOTE | 2019-05-20 20:37 | CT ---
EXAMINATION: CT brain wo con DATE AND TIME: 05/20/2019 7:57 PM CLINICAL INDICATION: PH[facility]; MEEHAN TECHNIQUE: Standard departmental protocol.; 1087.4; COMPARISON: None. FINDINGS: The calvarium is intact. There is no intracranial hemorrhage. There is no intracranial mass or mass effect. No definite new intra-axial or extra-axial attenuation defect. The paranasal sinuses, middle ear cavities, and mastoid sinus air cells are clear. The orbits are unremarkable. IMPRESSION: NO ACUTE PROCESS.
[2019-05-20] MEDS ORDERED: KETOROLAC 60 MG/2 ML VIAL IM STA (20:40)
[2019-05-20 21:57] VITALS: BP 148/86; PULSE 72
== END 2019-05-20 21:00 | disposition home or self-care (01) ==
LOC: EC 19:18
DX: R51 Headache (principal); I48.91 Unspecified atrial fibrillation; I11.0 Hypertensive heart disease with heart failure; I50.9 Heart failure, unspecified; I25.10 Atherosclerotic heart disease of native coronary artery without angina pectoris; G47.30 Sleep apnea, unspecified; Z79.01 Long term (current) use of anticoagulants; Z79.02 Long term (current) use of antithrombotics/antiplatelets; Z79.899 Other long term (current) drug therapy; Z88.0 Allergy status to penicillin; Z87.891 Personal history of nicotine dependence; Z95.5 Presence of coronary angioplasty implant and graft
CPT/HCPCS: 70450; 99284; 96372; S0183; J1885

== ENCOUNTER → 2019-06-05 | Outpatient (CLI) | payer BC ==
--- NOTE | 2019-06-05 11:12 | CT ---
EXAMINATION TYPE: CT chest w con DATE OF EXAM: 06/05/2019 COMPARISON: 06/14/2018 HISTORY: SOB CT DLP: 651.30 mGycm, Automated exposure control for dose reduction was used. CONTRAST: Performed injected with 100 mL of Isovue 300. TECHNIQUE: Axial images were obtained at 5 mm thick sections. Reconstructed images are reviewed on [employer] computer in the coronal plane. FINDINGS: Portion of the thyroid visualized is normal. There is a small left pleural effusion. There is some stranding at the lung apices. Some dependent fi ndings at the lung bases may be some subsegmental atelectasis. There is an enlarged superior mediastinal lymph node measuring 1.0 cm in transverse dimension. Addit ional smaller subcentimeter lymph nodes are within the superior mediastinum. There is a pretracheal l ymph node noted measuring 1.3 cm. No suspicious hilar adenopathy is evident. Coronary artery calcific ations present. The ascending aorta diameter at the level of the main pulmonary artery is 3.8 cm. The main pulmonary artery diameter at the bifurcation is 3.[address] sections are obtained through the upper abdomen. Abdomen is essentially unremarkable. IMPRESSIONS: 1. Couple of enlarged lymph nodes in the superior mediastinum and pretracheal space. 2. Stable small left pleural effusion. Lymphadenopathy has diminished over the interval.
== END | disposition home or self-care (01) ==
LOC: RADCTMAIN 08:36
PROVIDERS: ATTEND Internal Medicine Critical Care Medicine
DX: J90 Pleural effusion, not elsewhere classified (principal); R59.1 Generalized enlarged lymph nodes; Z88.0 Allergy status to penicillin
CPT/HCPCS: 71260; Q9967

== ENCOUNTER → 2019-09-01 | Outpatient (CLI) | payer BC ==
[2019-09-01 17:11] LABS: African American GFR (CKD) 115.7 (60.0-200.0); Anion Gap 5.1 mmol/L (4.00-12.00); Calcium 9.7 mg/dL (8.7-10.3); Carbon Dioxide 35.9 mmol/L (21.6-31.8); Magnesium 1.8 mg/dL (1.5-2.4); Non-African American GFR(CKD) 99.9 (60.0-200.0); Potassium 3.9 mmol/L (3.5-5.5)
== END | disposition home or self-care (01) ==
LOC: LABWHC1 08:38
PROVIDERS: ATTEND Nurse Practitioner
DX: Z48.812 Encounter for surgical aftercare following surgery on the circulatory system (principal); Z95.2 Presence of prosthetic heart valve
CPT/HCPCS: 36415; 80048; 83735

== ENCOUNTER → 2019-11-25 | Outpatient (CLI) | payer BC ==
--- NOTE | 2019-11-25 11:06 | XR ---
EXAMINATION TYPE: XR chest 2V DATE OF EXAM: 11/25/2019 COMPARISON: 08/23/2018 HISTORY: Chest tightness, shortness of breath TECHNIQUE: Frontal and lateral views of the chest are obtained. FINDINGS: Diffuse interstitial prominence is seen particularly in the peripheral right upper lung. C hronic atelectasis at the left lung base. There is no focal air space opacity, pleural effusion, or p neumothorax seen. Postsurgical change of cardiac valvular replacement is seen with mildly enlarged ca rdiomediastinal silhouette appearing less conspicuous than the prior likely related to technique. Mil d degenerative change of the spine. IMPRESSION: New diffuse interstitial prominence, consider mild interstitial edema of congestive hear t failure. Chronic left basilar atelectasis.
== END | disposition home or self-care (01) ==
LOC: RADXRMAIN 10:46
PROVIDERS: ATTEND Family Medicine
DX: J98.11 Atelectasis (principal); J98.4 Other disorders of lung
CPT/HCPCS: 71046

== ENCOUNTER 2020-11-08 07:06 | Observation (INO) | payer BC ==
[2020-11-08] MEDS ORDERED: NITROGLYCERIN SL TABS 0.4 MG TAB SUBLINGUAL STA ×3 (07:31)
[2020-11-08] MEDS ORDERED: ASPIRIN 81 MG PO STA (07:31)
--- NOTE | 2020-11-08 07:45 | ED ---
General Adult HPI - General Chief complaint: Chest Pain Stated complaint: Chest Discomfort Time Seen by Provider: 11/08/20 07:09 Source: patient, RN notes reviewed Mode of arrival: wheelchair Limitations: no limitations - History of Present Illness Initial comments: Patient is a pleasant 55-year-old male presenting to the emergency Department with complaints of chest discomfort. Patient did have palpitations through the night. Patient then developed some chest discomfort and dyspnea. Patient did vomit once. Nausea is minimal at this time. Chest discomfort feels like tightness. There is some radiation towards the back. Patient does have cardiac history of her symptoms did not feel quite similar. Patient denies fever. No leg pain or leg swelling. - Related Data Home Medications Medication Instructions Recorded Confirmed Multivitamin [Men's Multi-Vitamin] 1 tab PO DAILY 01/22/14 11/08/20 Fish Oil/Dha/Epa [Fish Oil 1,200 1 cap PO DAILY 11/06/17 11/08/20 mg Fish Oil] Umeclidinium Brm/Vilanterol Tr 1 puff INHALATION RT-DAILY 07/04/18 11/08/20 [Anoro Ellipta 62.5-25 Mcg INH] Furosemide [Lasix] 40 mg PO DAILY 05/20/19 11/08/20 Losartan [Cozaar] 50 mg PO DAILY 05/20/19 11/08/20 Magnesium Oxide [Mag-Ox] 500 mg PO HS 05/20/19 11/08/20 Sertraline [Zoloft] 50 mg PO DAILY 05/20/19 11/08/20 carvediloL [Coreg] 6.25 mg PO DAILY@1600 05/20/19 11/08/20 carvediloL [Coreg] 12.5 mg PO DAILY 05/20/19 11/08/20 Pantoprazole [Protonix] 40 mg PO HS 11/08/20 11/08/20 Warfarin [Coumadin] 5 mg PO MOFR 11/08/20 11/08/20 Warfarin [Coumadin] 7.5 mg PO SUTUWETHSA 11/08/20 11/08/20 Previous Rx's Medication Instructions Recorded Aspirin 81 mg PO DAILY #30 chew 08/24/18 Atorvastatin [Lipitor] 80 mg PO HS #30 tab 08/24/18 Allergies Allergy/AdvReac Type Severity Reaction Status Date / Time Penicillins Allergy Unknown Verified 11/08/20 08:39 Childhood Review of Systems ROS Statement: Those systems with pertinent positive or pertinent negative responses have been documented in the HPI. ROS Other: All systems not noted in ROS Statement are negative. Constitutional: Denies: fever Eyes: Denies: eye pain ENT: Denies: ear pain Respiratory: Reports: dyspnea. Denies: cough Cardiovascular: Reports: chest pain, palpitations Endocrine: Denies: fatigue Gastrointestinal: Reports: as per HPI, nausea Genitourinary: Denies: dysuria Musculoskeletal: Denies: back pain Skin: Denies: rash Neurological: Denies: weakness Past Medical History Past Medical History: Atrial Fibrillation, Coronary Artery Disease (CAD), Heart Failure, GERD/Reflux, Hyperlipidemia, Hypertension, Sleep Apnea/CPAP/BIPAP Additional Past Medical History / Comment(s): . History of Any Multi-Drug Resistant Organisms: None Reported Past Surgical History: Appendectomy, Heart Catheterization With Stent Additional Past Surgical History / Comment(s): cardioversions x 3, stent to RCA,DYLAN X2,colonoscopy, EGD, Past Anesthesia/Blood Transfusion Reactions: No Reported Reaction Date of Last Stent Placement:: 01/22/18 Past Psychological History: No Psychological Hx Reported Smoking Status: Never smoker Past Alcohol Use History: None Reported Past Drug Use History: None Reported - Past Family History Father Family Medical History: Congestive Heart Failure (CHF) Additional Family Medical History / Comment(s): Father from CHF at the age of 68yrs. Mother Family Medical History: No Reported History Additional Family Medical History / Comment(s): Mother at the age of 62 or 63 yrs from myasthenia gravis. General Exam Limitations: no limitations General appearance: alert, in no apparent distress Head exam: Present: normocephalic Eye exam: Present: normal appearance Neck exam: Present: normal inspection Respiratory exam: Present: normal lung sounds bilaterally. Absent: chest wall tenderness Cardiovascular Exam: Present: regular rate, normal rhythm Expanded Peripheral pulses: 2+: Radial (R), Radial (L), Posterior Tibialis (R), Posterior Tibialis (L) GI/Abdominal exam: Present: soft. Absent: tenderness Extremities exam: Present: normal inspection. Absent: pedal edema, calf tenderness Neurological exam: Present: alert Psychiatric exam: Present: normal affect, normal mood Skin exam: Present: normal color Course Vital Signs 11/08/20 11/08/20 11/08/20 07:15 08:15 09:11 Temperature 98.5 F 98.5 F Pulse Rate 89 80 Respiratory 18 Rate Blood Pressure 155/97 110/71 121/71 O2 Sat by Pulse 95 Oximetry EKG Findings - EKG Comments: EKG Findings:: Sinus rhythm with rate of 88. First-degree AV block with SC 222. QRS 114. QT 34. QTC 464. Normal axis. Septal Q waves. No acute ST change. Incomplete right bundle-branch block. Medical Decision Making - Medical Decision Making Patient reevaluated and updated. Patient states discomfort starting to return and is given additional nitro. Previous nitro didn't work well. Patient updated on results and plan. Case was discussed with Dr. Valderrama, who will admit his patient. Cardiology will be consult. - Lab Data Result diagrams: 11/08/20 07:56 11/08/20 07:56 Lab Results 11/08/20 11/08/20 11/08/20 Range/Units 07:56 07:56 07:56 WBC 8.5 (3.8-10.6) k/uL RBC 5.39 (4.30-5.90) m/uL Hgb 16.6 (13.0-17.5) gm/dL Hct 47.6 (39.0-53.0) % MCV 88.2 (80.0-100.0) fL MCH 30.9 (25.0-35.0) pg MCHC 35.0 (31.0-37.0) g/dL RDW 13.1 (11.5-15.5) % Plt Count 224 (150-450) k/uL MPV 8.2 Neutrophils % 71 % Lymphocytes % 18 % Monocytes % 6 % Eosinophils % 2 % Basophils % 1 % Neutrophils # 6.0 (1.3-7.7) k/uL Lymphocytes # 1.5 (1.0-4.8) k/uL Monocytes # 0.5 (0-1.0) k/uL Eosinophils # 0.2 (0-0.7) k/uL Basophils # 0.1 (0-0.2) k/uL PT 30.0 H (9.0-12.0) sec INR 3.1 H (<1.2) APTT 36.1 H (22.0-30.0) sec D-Dimer 0.40 (<0.60) mg/L FEU Sodium 137 (137-145) mmol/L Potassium 3.9 (3.5-5.1) mmol/L Chloride 97 L (98-107) mmol/L Carbon Dioxide 29 (22-30) mmol/L Anion Gap 11 mmol/L BUN 19 (9-20) mg/dL Creatinine 0.80 (0.66-1.25) mg/dL Est GFR (CKD-EPI)AfAm >90 (>60 ml/min/1.73 sqM) Est GFR (CKD-EPI)NonAf >90 (>60 ml/min/1.73 sqM) Glucose 150 H (74-99) mg/dL Calcium 9.9 (8.4-10.2) mg/dL Magnesium 1.8 (1.6-2.3) mg/dL Total Bilirubin 1.4 H (0.2-1.3) mg/dL AST 36 (17-59) U/L ALT 36 (4-49) U/L Alkaline Phosphatase 124 (38-126) U/L Troponin I (0.000-0.034) ng/mL NT-Pro-B Natriuret Pep pg/mL Total Protein 7.8 (6.3-8.2) g/dL Albumin 4.8 (3.5-5.0) g/dL Coronavirus (PCR) (Not Detectd) 11/08/20 11/08/20 11/08/20 Range/Units 07:56 07:56 07:56 WBC (3.8-10.6) k/uL RBC (4.30-5.90) m/uL Hgb (13.0-17.5) gm/dL Hct (39.0-53.0) % MCV (80.0-100.0) fL MCH (25.0-35.0) pg MCHC (31.0-37.0) g/dL RDW (11.5-15.5) % Plt Count (150-450) k/uL MPV Neutrophils % % Lymphocytes % % Monocytes % % Eosinophils % % Basophils % % Neutrophils # (1.3-7.7) k/uL Lymphocytes # (1.0-4.8) k/uL Monocytes # (0-1.0) k/uL Eosinophils # (0-0.7) k/uL Basophils # (0-0.2) k/uL PT (9.0-12.0) sec INR (<1.2) APTT (22.0-30.0) sec D-Dimer (<0.60) mg/L FEU Sodium (137-145) mmol/L Potassium (3.5-5.1) mmol/L Chloride (98-107) mmol/L Carbon Dioxide (22-30) mmol/L Anion Gap mmol/L BUN (9-20) mg/dL Creatinine (0.66-1.25) mg/dL Est GFR (CKD-EPI)AfAm (>60 ml/min/1.73 sqM) Est GFR (CKD-EPI)NonAf (>60 ml/min/1.73 sqM) Glucose (74-99) mg/dL Calcium (8.4-10.2) mg/dL Magnesium (1.6-2.3) mg/dL Total Bilirubin (0.2-1.3) mg/dL AST (17-59) U/L ALT (4-49) U/L Alkaline Phosphatase (38-126) U/L Troponin I 0.022 (0.000-0.034) ng/mL NT-Pro-B Natriuret Pep 57 pg/mL Total Protein (6.3-8.2) g/dL Albumin (3.5-5.0) g/dL Coronavirus (PCR) Not Detected (Not Detectd) - Radiology Data Radiology results: image reviewed (Chest x-ray shows mild cardiac megaly without acute process) Disposition Clinical Impression: Chest pain Disposition: ADMITTED IP TO THIS HOSP Is patient prescribed a controlled substance at d/c from ED?: No Referrals: Chandler Valderrama MD [Primary Care Provider] - 1-2 days Decision Time: 09:15
[2020-11-08 08:10] LABS: Basophils # (A) 0.1 k/uL (0-0.2); Basophils % (A) 1 %; Eosinophils # (A) 0.2 k/uL (0-0.7); Eosinophils % (A) 2 %; HCT 47.6 % (39.0-53.0); HGB 16.6 gm/dL (13.0-17.5); Lymphocytes # (A) 1.5 k/uL (1.0-4.8); Lymphocytes % (A) 18 %; MCH 30.9 pg (25.0-35.0); MCV 88.2 fL (80.0-100.0); Mean Platelet Volume 8.2; Monocytes # (A) 0.5 k/uL (0-1.0); Monocytes % (A) 6 %; Neutrophils % (A) 71 %; Platelet Count 224 k/uL (150-450); RBC 5.39 m/uL (4.30-5.90); RDW 13.1 % (11.5-15.5); WBC 8.5 k/uL (3.8-10.6)
--- NOTE | 2020-11-08 08:11 | XR ---
EXAMINATION TYPE: XR chest 2V DATE OF EXAM: 11/08/2020 COMPARISON: Chest x-ray November 25, 2019 HISTORY: History of cardiac stents 2018 with shortness of breath and chest pain TECHNIQUE: Frontal and lateral views of the chest are obtained. FINDINGS: Overlying sternal wires and mediastinal clips along with left atrial appendage clip and me tallic cardiac valve are all redemonstrated. There is moderate chronic parenchymal changes bilaterall y greatest in the lower lungs redemonstrated without suspicious new focal air space opacity, pleural effusion, or pneumothorax seen. The cardiac silhouette size is stable and mildly enlarged. The oss eous structures remain intact. IMPRESSION: Chronic changes and mild cardiomegaly without new acute process.
[2020-11-08 08:18] LABS: ALT 36 U/L (4-49); AST 36 U/L (17-59); African American GFR (CKD) >90 (>60 ml/min/1.73 sqM); Albumin 4.8 g/dL (3.5-5.0); Alkaline Phosphatase 124 U/L (38-126); Anion Gap 11 mmol/L; Blood Urea Nitrogen 19 mg/dL (9-20); Calcium 9.9 mg/dL (8.4-10.2); Carbon Dioxide 29 mmol/L (22-30); Chloride 97 mmol/L (98-107); Glucose 150 mg/dL (74-99); Magnesium 1.8 mg/dL (1.6-2.3); Non-African American GFR(CKD) >90 (>60 ml/min/1.73 sqM); Potassium 3.9 mmol/L (3.5-5.1); Sodium 137 mmol/L (137-145); Total Bilirubin 1.4 mg/dL (0.2-1.3); Total Protein 7.8 g/dL (6.3-8.2)
[2020-11-08 08:24] LABS: D-Dimer 0.4 mg/L FEU (<0.60); INR 3.1 (<1.2); Partial Thromboplastin Time 36.1 sec (22.0-30.0)
[2020-11-08] MEDS ORDERED: NITROGLYCERIN SL TABS 0.4 MG TAB SUBLINGUAL PRN (09:16)
[2020-11-08] MEDS: Acetaminophen-Codeine 300-30mg TAB PO PRN (13:15)
--- NOTE | 2020-11-08 14:16 | P.CNPUL ---
History of Present Illness Consult date: 11/08/20 Reason for consult: dyspnea, chest pain History of present illness: Lesley is a 55-year-old male patient as well as well-known to me. The patient is known to have COPD with an FEV1 of 66% of predicted and he is maintained on an oral of the albuterol inhaler necessary basis. The patient has mild to moderate COPD. The patient also has obstructive sleep apnea and he is maintained on APAP with a minimum pressure of 10 and a maximum pressure of 20. He has previous history of mitral valve replacement for regurgitation, chronic atrial fibrillation, CAD the patient has undergone previous stenting of the RCA and subsequently 2 vessel bypass surgery with BINTA to RCA and saphenous vein graft to OM 1, And hypertension. He also has a aortic aneurysm with a 4.1 cm dilation of the aortic root mild aneurysmal dilatation of the infrarenal aorta measuring 3.4 x 2.5 x 3.1 cm in size. The patient came in yesterday to the emergency department complaining of chest discomfort. He did have palpitations throughout the night and he also developed some chest pain and shortness of breath. He vomited once. He did have some minimal nausea. His chest discomfort and tightness was radiating to the back. No fever. No chills. No swelling in lower extremities. The patient underwent second of 8.5 with a hemoglobin of 16.6 and a platelet count of 224. The INR was at 3.1 with a PT of 30 and the patient is on long-term and to coagulation with warfarin regarding previous mitral valve replacement. The patient also has a normal renal function. Troponins were 0.02 and 0.01 respectively 2 and the patient had overnight interesting that came back negative. The chest x-ray showed chronic postthoracotomy changes without any acute abnormality and there was some mild cardiomegaly. No consolidation. No pleural effusion. His EKG showed sinus r hythm with a first-degree AV block and there was no ST segment changes and there was old Q waves over the anterior leads indicating an old septal infarct. The patient apparently was admitted to the hospital. His home medications have been ordered resume. Note that the patient was given nitroglycerin emergency department the symptoms improved. Subsequently symptoms came back and had another episode of chest discomfort radiating to his back. On the floor and he was given nitroglycerin again with improvement. Currently stable and chest discomfort or pain. Review of Systems Patient reports no fever, no night sweats, no significant weight gain, no significant weight loss, and no exercise intolerance; obesity. He reports dry mouth and mouth breathing but reports no sore throat, no bleeding gums, no mouth ulcers, and no teeth problems. He reports shortness of breath when walking but reports no chest pain, no arm pain on exertion, no shortness of breath when lying down, no palpitations, and no known heart murmur. He reports shortness of breath and sleep apnea but reports no cough, no wheezing, and no coughing up blood. He reports sleep disturbances but reports no depression, feeling safe in a relationship, no alcohol abuse, no anxiety, no hallucinations, and no suicidal thoughts. He reports fatigue. He reports no dry eyes, no vision change, and no irritation. He reports no difficulty hearing and no ear pain. He reports no frequent nosebleeds, no nose problems, and no sinus problems. He reports no abdominal pain, no nausea, no vomiting, no constipation, normal appetite, no diarrhea, not vomiting blood, no dyspepsia, and no GERD. He reports no incontinence, no difficulty urinating, no hematuria, and no increased frequency. He reports no muscle aches, no muscle weakness, no arthralgias/joint pain, no back pain, and no swelling in the extremities. He reports no abnormal mole, no jaundice, no rashes, and no laceration. He reports no loss of consciousness, no weakness, no numbness, no seizures, no dizziness, no migraines, no headaches, and no tremor. He reports no swollen glands, no bruising, and no excessive bleeding. He reports no runny nose, no sinus pressure, no itching, no hives, and no frequent sneezing. Past Medical History Past Medical History: Atrial Fibrillation, Coronary Artery Disease (CAD), Heart Failure, GERD/Reflux, Hyperlipidemia, Hypertension, Pneumonia, Sleep Apnea/CPAP/BIPAP Additional Past Medical History / Comment(s): ALEISHA with Cpap use. History of Any Multi-Drug Resistant Organisms: None Reported Past Surgical History: Appendectomy, Heart Catheterization With Stent Additional Past Surgical History / Comment(s): 2018 PCI with stent, 2018 CABG 2 vessel with mitral valve replacement, cardioversion x 3, DYLAN x2, EGD, colonoscopy Past Anesthesia/Blood Transfusion Reactions: No Reported Reaction Date of Last Stent Placement:: 01/22/18 Smoking Status: Former smoker - Past Family History Father Family Medical History: Congestive Heart Failure (CHF) Additional Family Medical History / Comment(s): Father of CHF at the age of 68yrs. Mother Family Medical History: No Reported History Additional Family Medical History / Comment(s): Mother at the age of 62 or 63 yrs from myasthenia gravis. Medications and Allergies Home Medications Medication Instructions Recorded Confirmed Type Multivitamin [Men's Multi-Vitamin] 1 tab PO DAILY 01/22/14 11/08/20 History Fish Oil/Dha/Epa [Fish Oil 1,200 1 cap PO DAILY 11/06/17 11/08/20 History mg Fish Oil] Umeclidinium Brm/Vilanterol Tr 1 puff INHALATION RT-DAILY 07/04/18 11/08/20 History [Anoro Ellipta 62.5-25 Mcg INH] Aspirin 81 mg PO DAILY #30 chew 08/24/18 11/08/20 Rx Atorvastatin [Lipitor] 80 mg PO HS #30 tab 08/24/18 11/08/20 Rx Furosemide [Lasix] 40 mg PO DAILY 05/20/19 11/08/20 History Losartan [Cozaar] 50 mg PO DAILY 05/20/19 11/08/20 History Magnesium Oxide [Mag-Ox] 500 mg PO HS 05/20/19 11/08/20 History Sertraline [Zoloft] 50 mg PO DAILY 05/20/19 11/08/20 History carvediloL [Coreg] 6.25 mg PO DAILY@1600 05/20/19 11/08/20 History carvediloL [Coreg] 12.5 mg PO DAILY 05/20/19 11/08/20 History Pantoprazole [Protonix] 40 mg PO HS 11/08/20 11/08/20 History Warfarin [Coumadin] 5 mg PO MOFR 11/08/20 11/08/20 History Warfarin [Coumadin] 7.5 mg PO SUTUWETHSA 11/08/20 11/08/20 History Allergies Allergy/AdvReac Type Severity Reaction Status Date / Time Penicillins Allergy Unknown Verified 11/08/20 08:39 Childhood Physical Exam Vitals: Vital Signs Temp Pulse Pulse Resp BP BP Pulse Ox 11/08/20 12:20 98 F 84 18 156/97 94 L 03/01/21 11:41 98.1 F 83 16 109/68 96 11/08/20 11:10 135/82 11/08/20 09:11 80 121/71 11/08/20 08:15 98.5 F 110/71 11/08/20 07:15 98.5 F 89 18 155/97 95 Intake and Output 11/07/20 11/08/20 11/08/20 22:59 06:59 14:59 Other: Weight 116.12 kg COPD: General Appearance no diaphoresis, dyspnea, pallor, or respiratory distress and speech not interrupted by breaths, not cachectic, well nourished, a ppears well, and obesity. HEENT no pursed lip breathing, jugular venous distention, mucous membrane cyanosis, or perioral cyanosis and mallampati classification: class 1 and Mallampati Classification: Class 4. Chest no retractions, rhonchi, hyperinflation, barrel chest, sternocleidomastoid muscle contractions, supraclavicular retractions, intercostal retractions, prolonged expiratory wheezing, or decreased air movement and decreased air movement and (normal) adventitious sounds: rales / crackles: bilaterally: midlung santamaria; sternum stable clean and intact. no signs of any infection at this point in time.. Heart no right ventricular heave, distant heart sounds, or s3 gallop; (normal) jugular vein and vein: jugular venous distention: by 0cm; and Murmurs: Unspecified Location: Diastolic: Grade 2 / IV; metallic mitral valve click heard over the precordium. GI bowel sounds: hyperactive (borborygmi) and diminished or absent. Extremities no cyanosis, clubbing, or edema. Neurologic no somnolence, confusion, or decreased mental status. Assisstive Devices: ambulates with no assitive devices. Gait and Mobility: gait WNL and full weight bearing. Skin: General Appearance normal and (normal) normal except as noted. Results - Laboratory Findings CBC and BMP: 11/08/20 07:56 11/08/20 07:56 PT/INR, D-dimer PT 30.0 sec (9.0-12.0) H 11/08/20 07:56 INR 3.1 (<1.2) H 11/08/20 07:56 D-Dimer 0.40 mg/L FEU (<0.60) 11/08/20 07:56 Abnormal lab findings: Abnormal Labs 11/08/20 11/08/20 07:56 07:56 PT 30.0 H INR 3.1 H APTT 36.1 H Chloride 97 L Glucose 150 H Total Bilirubin 1.4 H Assessment and Plan Plan: Dyspnea /chest pain, nonspecific, yet responded to nitroglycerin and obviously raising a concern for a cardiac pain knowing that the patient has known history of coronary artery disease, as several coronary stents including stenting of the RCA and has 2 vessel bypass surgery that was done at the time of his mitral valve replacement. Cardiac enzymes are negative. EKG is nonspecific with a first-degree AV block and an old septal infarct. Chest x-ray is nonrevealing. Cardiology consultation is being requested for now. Mild chronic obstructive pulmonary disease - continue Anoro Ellipta one inhalation a day and the patient quit smoking. The patient is on Anoro as maintenance and the patient is using albuterol as needed. His COPD is stable for now. Flu shot is recommended. J44.9: Chronic obstructive pulmonary disease, unspecified Obstructive sleep apnea syndrome - the patient is on CPAP therapy. His baseline AHI is 38. switch this patient and APAP mode with a minimum pressure of 10 and it some pressure of 20. Continue the ALEISHA treatment. He is compliant and the treatment is successful for now. No need to make an adjustment of the pressure setting. We'll continue to follow. G47.33: Obstructive sleep apnea (adult) (pediatric) History of mitral valve replacement - he is recovering from a mitral valve replacement.. The patient's follow-up echocardiographic showed a preserved valve function, normal LV. There is no paravalvular leak. The patient had FU echo and stress test and the results will be followed Z95.2: Presence of prosthetic heart valve Mitral valve regurgitation - the above-mentioned discussion I34.0: Nonrheumatic mitral (valve) insufficiency Atrial fibrillation - patient underwent clipping of the atrial appendage and the patient had a modified maze procedure. Currently is in a sinus rhythm and the rate is controlled and the patient is on long-term and to coagulation with warfarin. I48.91: Unspecified atrial fibrillation Coronary arteriosclerosis - the patient is free of any chest pain for now and he has undergone cardiac catheterization and stenting of the RCA lesion was done. Is also known to have another 40% lesion in the mid LAD. the patient also underwent 2 vessel bypass surgery with BINTA tp RCA and saphenous to OM 1. I25.10: Atherosclerotic heart disease of [place] coronary artery without angina pectoris Hypertensive disorder I10: Essential (primary) hypertension Aortic aneurysm - the patient has a 4.1 cm dilatation of the aortic root. He also has a mild aneurysmal dilatation of the infrarenal aorta measuring 3.4 x 2.9 x 3.1 cm in si ze I71.9: Aortic aneurysm of unspecified site, without rupture Plan Awaiting cardiology consultation Pulmonary status is stable Continue Anoro as maintenance on outpatient basis regarding COPD Continue with CPAP therapy
[2020-11-08] MEDS: FUROSEMIDE 40 MG TAB PO SCH (14:27)
[2020-11-08] MEDS: LOSARTAN 50 MG TAB PO SCH (14:27)
[2020-11-08] MEDS: SERTRALINE 50 MG TAB PO SCH (14:28)
[2020-11-08] MEDS: NITROGLYCERIN OINT 1 INCH/GM PACKET TOPICAL SCH ×2 (14:30→20:41)
[2020-11-08] MEDS ORDERED: IPRATROPIUM 0.5 MG/2.5 ML NEBU INHALATION ONE (15:06)
[2020-11-08] MEDS ORDERED: FORMOTEROL FUMARATE 20 MCG/2 ML NEBU INHALATION ONE (15:06)
--- NOTE | 2020-11-08 15:35 | P.CRDCN ---
History of Present Illness Consult date: 11/08/20 History of present illness: CHIEF COMPLAINT: Chest pain HISTORY OF PRESENT ILLNESS: This is a 55-year-old male with a past medical history significant for coronary artery disease with previous PCI 3, mitral valve replacement, Maze procedure, and CABG 2 (right internal mammary artery to RCA and saphenous vein graft of the aorta to the second obtuse marginal artery) in 2018, paroxysmal atrial fibrillation, hyperlipidemia, hypertension, obstructive sleep apnea, and GERD. Patient follows in the office with Dr. Valles. We have been asked to see the patient in consultation for chest pain. Patient examined at the bedside. Patient states he had a restless night of sleep and had to change his shirt a few times overnight due to sweating. He states he woke up this morning and felt nauseous. He states he did had one episode of emesis. He reports midsternal and right sided chest discomfort that he describes as a heavy pressure. He reports pain in between his shoulder blades as well. He denies any radiation to the jaw or neck. He denies shortness of breath. Denies dizziness or lightheadedness. Patient reports the pain is worse with a deep breath. He also reports significant tenderness with palpation of right chest wall. DIAGNOSTICS: EKG reveals sinus rhythm with first-degree AV block Chest xray chronic changes and mild cardiomegaly without new acute process Laboratory data: WBC 8.5. Hemoglobin 16.6. Platelet count 224. D-dimer 0.40. Sodium 137. Potassium 3.9. BUN 19. Creatinine 0.90. Magnesium 1.8. BNP 57. Troponin negative 3. Current home cardiac medications include carvedilol 12.5 mg in the morning and 6.25 mg in the afternoon, Coumadin 5 mg Sunday and Sunday and 7.5 mg Sunday, losartan 50 mg daily, Lasix 40 mg daily, Lipitor 80 mg daily, and aspirin 81 mg daily Patient had a nuclear stress test performed in the office in 2019 which was negative for reversible ischemia REVIEW OF SYSTEMS: At the time of my exam: CONSTITUTIONAL: Denies fever or chills. HEENT: Denies blurred vision, vision changes, or eye pain. Denies hemoptysis CARDIOVASCULAR: Denies chest pain, orthopnea, PND or palpitations RESPIRATORY: No shortness of breath. GASTROINTESTINAL: Denies abdominal pain. Denies nausea or vomiting. HEMATOLOGIC: Denies bleeding disorders. GENITOURINARY: Denies any blood in urine. SKIN: Denies pruitis. Denies rash. PHYSICAL EXAM: VITAL SIGNS: Reviewed. GENERAL: Well-developed in no acute distress. HEENT: Head is normocephalic. Pupils are equal, round. Sclerae anicteric. Mucous membranes of the mouth are moist. Neck supple. No JVD or thyromegaly LUNGS: Respirations even and unlabored. Lungs essentially clear to auscultation bilaterally. HEART: Regular rate and rhythm. S1 and S2 heard. Tenderness upon palpation of right sided chest wall. ABDOMEN: Soft. Nondistended. Nontender. EXTREMITIES: Normal range of motion. No clubbing or cyanosis. Peripheral pulses intact. No lower extremity edema NEUROLOGIC: Awake and alert. Oriented x 3. ASSESSMENT: 1. Chest pain, with typical and atypical features, troponins negative 3 2. Coronary artery disease with previous PCI 3 3. History of mitral valve replacement, maze procedure, and CABG 2: right int ernal mammary artery to RCA and saphenous vein graft of the aorta to the second obtuse marginal artery, 2018 4. Paroxysmal atrial fibrillation 5. Hyperlipidemia 6. Hypertension 7. Obstructive sleep apnea PLAN: Obtain 2D echo to assess cardiac structure and function Resume home cardiac medications NPO after midnight Further recommendations to follow Nurse practitioner note has been reviewed by physician. Signing provider agrees with the documented findings, assessment, and plan of care. Past Medical History Past Medical History: Atrial Fibrillation, Coronary Artery Disease (CAD), Heart Failure, GERD/Reflux, Hyperlipidemia, Hypertension, Pneumonia, Sleep Apnea/CPAP/BIPAP Additional Past Medical History / Comment(s): ALEISHA with Cpap use. History of Any Multi-Drug Resistant Organisms: None Reported Past Surgical History: Appendectomy, Heart Catheterization With Stent Additional Past Surgical History / Comment(s): 2018 PCI with stent, 2018 CABG 2 vessel with mitral valve replacement, cardioversion x 3, DYLAN x2, EGD, colonoscopy Past Anesthesia/Blood Transfusion Reactions: No Reported Reaction Date of Last Stent Placement:: 01/22/18 Smoking Status: Former smoker - Past Family History Father Family Medical History: Congestive Heart Failure (CHF) Additional Family Medical History / Comment(s): Father of CHF at the age of 68yrs. Mother Family Medical History: No Reported History Additional Family Medical History / Comment(s): Mother at the age of 62 or 63 yrs from myasthenia gravis. Medications and Allergies Home Medications Medication Instructions Recorded Confirmed Type Multivitamin [Men's Multi-Vitamin] 1 tab PO DAILY 01/22/14 11/08/20 History Fish Oil/Dha/Epa [Fish Oil 1,200 1 cap PO DAILY 11/06/17 11/08/20 History mg Fish Oil] Umeclidinium Brm/Vilanterol Tr 1 puff INHALATION RT-DAILY 07/04/18 11/08/20 Hist ory [Anoro Ellipta 62.5-25 Mcg INH] Aspirin 81 mg PO DAILY #30 chew 08/24/18 11/08/20 Rx Atorvastatin [Lipitor] 80 mg PO HS #30 tab 08/24/18 11/08/20 Rx Furosemide [Lasix] 40 mg PO DAILY 05/20/19 11/08/20 History Losartan [Cozaar] 50 mg PO DAILY 05/20/19 11/08/20 History Magnesium Oxide [Mag-Ox] 500 mg PO HS 05/20/19 11/08/20 History Sertraline [Zoloft] 50 mg PO DAILY 05/20/19 11/08/20 History carvediloL [Coreg] 6.25 mg PO DAILY@1600 05/20/19 11/08/20 History carvediloL [Coreg] 12.5 mg PO DAILY 05/20/19 11/08/20 History Pantoprazole [Protonix] 40 mg PO HS 11/08/20 11/08/20 History Warfarin [Coumadin] 5 mg PO MOFR 11/08/20 11/08/20 History Warfarin [Coumadin] 7.5 mg PO SUTUWETHSA 11/08/20 11/08/20 History Allergies Allergy/AdvReac Type Severity Reaction Status Date / Time Penicillins Allergy Unknown Verified 11/08/20 08:39 Childhood Physical Exam Vitals: Vital Signs Temp Pulse Pulse Resp BP BP Pulse Ox 11/08/20 14:45 98 F 84 18 156/97 11/08/20 12:20 98 F 84 18 156/97 94 L 11/08/20 11:41 98.1 F 83 16 109/68 96 11/08/20 11:10 135/82 03/01/21 09:11 80 121/71 11/08/20 08:15 98.5 F 110/71 11/08/20 07:15 98.5 F 89 18 155/97 95 Intake and Output 11/08/20 11/08/20 11/08/20 06:59 14:59 22:59 Other: # Voids 1 Weight 116.12 kg Results 11/08/20 07:56 11/08/20 07:56 Cardiac Enzymes 11/08/20 11/08/20 11/08/20 Range/Units 07:56 07:56 10:34 AST 36 (17-59) U/L Troponin I 0.022 0.014 (0.000-0.034) ng/mL 11/08/20 Range/Units 13:52 AST (17-59) U/L Troponin I 0.027 (0.000-0.034) ng/mL Coagulation 11/08/20 Range/Units 07:56 PT 30.0 H (9.0-12.0) sec APTT 36.1 H (22.0-30.0) sec CBC 11/08/20 Range/Units 07:56 WBC 8.5 (3.8-10.6) k/uL RBC 5.39 (4.30-5.90) m/uL Hgb 16.6 (13.0-17.5) gm/dL Hct 47.6 (39.0-53.0) % Plt Count 224 (150-450) k/uL Comprehensive Metabolic Panel 11/08/20 Range/Units 07:56 Sodium 137 (137-145) mmol/L Potassium 3.9 (3.5-5.1) mmol/L Chloride 97 L (98-107) mmol/L Carbon Dioxide 29 (22-30) mmol/L BUN 19 (9-20) mg/dL Creatinine 0.80 (0.66-1.25) mg/dL Glucose 150 H (74-99) mg/dL Calcium 9.9 (8.4-10.2) mg/dL AST 36 (17-59) U/L ALT 36 (4-49) U/L Alkaline Phosphatase 124 (38-126) U/L Total Protein 7.8 (6.3-8.2) g/dL Albumin 4.8 (3.5-5.0) g/dL Current Medications Generic Name Dose Route Start Last Admin Trade Name Freq PRN Reason Stop Dose Admin Acetaminophen/Codeine Phosphate 2 each 11/08/20 12:59 11/08/20 13:15 Acetaminophen-Codeine 300-30mg Tab PO 2 each Q6HR PRN Administration Pain Aspirin 81 mg 11/09/20 09:00 Aspirin 81 Mg PO DAILY [facility] Atorvastatin Calcium 80 mg 11/08/20 21:00 Atorvastatin 80 Mg Tab PO HS [facility] Carvedilol 6.25 mg 11/08/20 16:00 Carvedilol 6.25 Mg Tab PO DAILY@1600 [facility] Carvedilol 12.5 mg 11/09/20 09:00 Carvedilol 12.5 Mg Tab PO DAILY [facility] Formoterol Fumarate 20 mcg 11/09/20 08:00 Formoterol Fumarate 20 Mcg/2 Ml Nebu INHALATION RT-BID [facility] Furosemide 40 mg 11/08/20 13:00 11/08/20 14:27 Furosemide 40 Mg Tab PO Not Given DAILY [facility] Ipratropium [place] 0.5 mg 11/09/20 08:00 Ipratropium 0.5 Mg/2.5 Ml Nebu INHALATION RT-QID [facility] Losartan Potassium 50 mg 11/08/20 13:00 11/08/20 14:27 Losartan 50 Mg Tab PO Not Given DAILY [facility] Magnesium Oxide 400 mg 11/08/20 21:00 Magnesium Oxide 400 Mg Tab PO HS [facility] Miscellaneous Information 1 each 11/08/20 13:18 Warfarin Per Pharmacy MISCELLANE DIRECTED PRN INR Morphine Sulfate 2 mg 11/08/20 15:22 Morphine Sulfate 2 Mg/Ml Syringe IVP Q4H PRN Pain/Discomfort Multivitamins 1 each 11/09/20 09:00 Multivitamins, Thera 1 Each Tab PO DAILY [facility] Nitroglycerin 0.4 mg 11/08/20 09:16 11/08/20 11:12 Nitroglycerin Sl Tabs 0.4 Mg Tab SUBLINGUAL 0.4 mg Q5M PRN Administration Chest Pain Nitroglycerin 1 inch 11/08/20 12:00 11/08/20 14:30 Nitroglycerin Oint 1 Inch/Gm Packet TOPICAL Not Given Q6HR [facility] Pantoprazole Sodium 40 mg 11/08/20 21:00 Pantoprazole 40 Mg Tablet PO HS [facility] Sertraline HCl 50 mg 11/08/20 13:00 11/08/20 14:28 Sertraline 50 Mg Tab PO Not Given DAILY [facility] Sodium Chloride 10 ml 11/08/20 21:00 Sodium Chloride 0.9% Flush 10 Ml Syringe IV BID [facility] Warfarin Sodium 5 mg 11/12/20 18:00 Warfarin 5 Mg Tab PO [email or web address] [facility] Protocol Warfarin Sodium 7.5 mg 11/09/20 18:00 Warfarin 7.5 Mg Tab PO [email or web address] [facility] Protocol Warfarin Sodium 3 mg 11/08/20 18:00 Warfarin 3 Mg Tab PO 11/08/20 18:01 [email or web address] [facility] Intake and Output 11/08/20 11/08/20 11/08/20 06:59 14:59 22:59 Other: # Voids 1 Weight 116.12 kg Patient Weight 11/09/20 06:59 Weight 116.12 kg 11/08/20 07:56 11/08/20 07:56
[2020-11-08] MEDS: MORPHINE SULFATE 2 MG/ML SYRINGE IVP PRN ×2 (15:50→20:41)
[2020-11-08] MEDS: carvediloL 6.25 MG TAB PO SCH (15:51)
[2020-11-08] MEDS ORDERED: WARFARIN 3 MG TAB PO ONE (18:00)
[2020-11-08] MEDS: PANTOPRAZOLE 40 MG TABLET PO SCH (20:40)
[2020-11-08] MEDS: ATORVASTATIN 80 MG TAB PO SCH (20:40)
[2020-11-08] MEDS: MAGNESIUM OXIDE 400 MG TAB PO SCH (20:40)
[2020-11-09] MEDS: NITROGLYCERIN OINT 1 INCH/GM PACKET TOPICAL SCH ×4 (00:10→23:17)
[2020-11-09] MEDS: FORMOTEROL FUMARATE 20 MCG/2 ML NEBU INHALATION SCH ×2 (07:18→20:08)
[2020-11-09] MEDS: IPRATROPIUM 0.5 MG/2.5 ML NEBU INHALATION SCH ×4 (07:18→20:08)
[2020-11-09] MEDS ORDERED: NON FORMULARY DRUG (Umeclidinium Brm/Vilanterol Tr [Anoro Ellipta 62.5-25 Mcg Inh] 1 EACH INHALATION SCH (08:00)
--- NOTE | 2020-11-09 08:26 | P.HPIM ---
History of Present Illness Chief Complaint: Angina This is a history and physical on a 55-year-old white male with known history of mitral valve CAD. The patient states yesterday he had significant chest pressure radiating to the shoulder. Some nausea but no diaphoresis was stated. No significant fever or chills. Nitroglycerin has been relieving. Patient is now admitted for unstable angina per appreciate cardiology input. Review of Systems Constitutional: Denies chills, Denies fever Ears, nose, mouth and throat: Denies headache, Denies sore throat Cardiovascular: Reports as per HPI, Reports chest pain Respiratory: Denies cough Gastrointestinal: Denies abdominal pain, Denies diarrhea, Denies nausea, Denies vomiting Past Medical History Past Medical History: Atrial Fibrillation, Coronary Artery Disease (CAD), Heart Failure, GERD/Reflux, Hyperlipidemia, Hypertension, Pneumonia, Sleep Apnea/CPAP/BIPAP Additional Past Medical History / Comment(s): ALEISHA with Cpap use. History of Any Multi-Drug Resistant Organisms: None Reported Past Surgical History: Appendectomy, Heart Catheterization With Stent Additional Past Surgical History / Comment(s): 2018 PCI with stent, 2018 CABG 2 vessel with mitral valve replacement, cardioversion x 3, DYLAN x2, EGD, colo noscopy Past Anesthesia/Blood Transfusion Reactions: No Reported Reaction Date of Last Stent Placement:: 01/22/18 Smoking Status: Former smoker - Past Family History Father Family Medical History: Congestive Heart Failure (CHF) Additional Family Medical History / Comment(s): Father of CHF at the age of 68yrs. Mother Family Medical History: No Reported History Additional Family Medical History / Comment(s): Mother at the age of 62 or 63 yrs from myasthenia gravis. Medications and Allergies Home Medications Medication Instructions Recorded Confirmed Type RX: Multivitamin [Men's 1 tab PO DAILY 01/22/14 11/08/20 History Multi-Vitamin] RX: Fish Oil/Dha/Epa [Fish Oil 1 cap PO DAILY 11/06/17 11/08/20 History 1,200 mg Fish Oil] RX: Umeclidinium Brm/Vilanterol Tr 1 puff INHALATION RT-DAILY 07/04/18 11/08/20 History [Anoro Ellipta 62.5-25 Mcg INH] RX: Aspirin 81 mg PO DAILY #30 chew 08/24/18 11/08/20 Rx RX: Atorvastatin [Lipitor] 80 mg PO HS #30 tab 08/24/18 11/08/20 Rx Furosemide [Lasix] 40 mg PO DAILY 05/20/19 11/08/20 History Losartan [Cozaar] 50 mg PO DAILY 05/20/19 11/08/20 History Magnesium Oxide [Mag-Ox] 500 mg PO HS 05/20/19 11/08/20 History RX: carvediloL [Coreg] 12.5 mg PO DAILY 05/20/19 11/08/20 History Sertraline [Zoloft] 50 mg PO DAILY 05/20/19 11/08/20 History carvediloL [Coreg] 6.25 mg PO DAILY@1600 05/20/19 11/08/20 History RX: Pantoprazole [Protonix] 40 mg PO HS 11/08/20 11/08/20 History Warfarin [Coumadin] 5 mg PO MOFR 11/08/20 11/08/20 History Warfarin [Coumadin] 7.5 mg PO SUTUWETHSA 11/08/20 11/08/20 History Allergies Allergy/AdvReac Type Severity Reaction Status Date / Time Penicillins Allergy Unknown Verified 11/08/20 08:39 Childhood Physical Exam Vitals: Vital Signs Temp Pulse Pulse Resp BP BP Pulse Ox 11/09/20 07:18 78 94 L 11/09/20 07:00 97.7 F 76 16 125/88 96 11/09/20 02:55 97.7 F 75 18 130/80 96 11/08/20 20:24 98.2 F 77 18 134/84 94 L 11/08/20 16:33 84 11/08/20 16:24 84 11/08/20 16:21 84 11/08/20 16:10 80 11/08/20 14:45 98 F 84 18 156/97 11/08/20 12:20 98 F 84 18 156/97 94 L 11/08/20 11:41 98.1 F 83 16 109/68 96 11/08/20 11:10 135/82 11/08/20 09:11 80 121/71 Intake and Output 11/08/20 11/09/20 11/09/20 22:59 06:59 14:59 Other: # Voids 2 2 - Constitutional General appearance: no acute distress - EENT Eyes: EOMI - Neck Neck: no lymphadenopathy - Respiratory Respiratory: bilateral: CTA - Cardiovascular Rhythm: irregularly irregular Heart sounds: normal: S1, S2 Abnormal Heart Sounds: no S3 Gallop Results CBC & Chem 7: 11/08/20 07:56 11/08/20 07:56 Labs: Abnormal Lab Results - Last 24 Hours (Table) 11/08/20 Range/Units 07:56 PT 30.0 H (9.0-12.0) sec INR 3.1 H (<1.2) APTT 36.1 H (22.0-30.0) sec Thrombosis Risk Factor Assmnt - Choose All That Apply Any of the Below Risk Factors Present?: Yes Each Factor Represents 1 point: Age 41-60 years, Obesity (BMI >25) Other Risk Factors: No Other congenital or acquired thrombophilia - If yes, enter type in comment: No Thrombosis Risk Factor Assessment Total Risk Factor Score: 2 Thrombosis Risk Factor Assessment Level: Low Risk Assessment and Plan (1) Chest pain Current Visit: Yes Status: Acute Code(s): R07.9 - CHEST PAIN, UNSPECIFIED SNOMED Code(s): 77516479 (2) Atrial fibrillation Current Visit: No Status: Acute Code(s): I48.91 - UNSPECIFIED ATRIAL FIBRILLATION SNOMED Code(s): 78485357 (3) GERD (gastroesophageal reflux disease) Current Visit: No Status: Chronic Code(s): K21.9 - GASTRO-ESOPHAGEAL REFLUX DISEASE WITHOUT ESOPHAGITIS SNOMED Code(s): 739134882 (4) Hypertension Current Visit: No Status: Chronic Code(s): I10 - ESSENTIAL (PRIMARY) HYPERTENSION SNOMED Code(s): 94733821 Plan: Rule out myocardial infarction. Echocardiogram is pending. Reconcile home medications. Prognosis is guarded secondary to multiple comorbidities. See orders otherwise.
[2020-11-09] MEDS ORDERED: ASPIRIN 81 MG PO SCH (09:00)
[2020-11-09] MEDS ORDERED: NON FORMULARY DRUG (Fish Oil/Dha/Epa [Fish Oil 1,200 Mg Fish Oil] 1 EACH Capsule) PO SCH (09:00)
[2020-11-09] MEDS ORDERED: ASPIRIN 325 MG TAB PO SCH (09:00)
[2020-11-09 09:10] LABS: Chol/HDL Ratio 3.21
[2020-11-09 09:59] LABS: INR 2.48 (0.90-1.11); Prothrombin Time 25.5 sec (9.9-11.9)
[2020-11-09] MEDS ORDERED: NITROGLYCERIN SL TABS 0.4 MG TAB SUBLINGUAL PRN (10:06)
[2020-11-09] MEDS ORDERED: ALPRAZolam 0.5 MG TAB PO PRN (10:06)
[2020-11-09] MEDS ORDERED: ALPRAZolam 0.25 MG TAB PO PRN (10:06)
--- NOTE | 2020-11-09 10:36 | P.PN ---
Subjective Progress Note Date: 11/09/20 CHIEF COMPLAINT: Chest pain HISTORY OF PRESENT ILLNESS: 11/08/2020 This is a 55-year-old male with a past medical history significant for coronary artery disease with previous PCI 3, mitral valve replacement, Maze procedure, and CABG 2 (right internal mammary artery to RCA and saphenous vein graft of the aorta to the second obtuse marginal artery) in 2018, paroxysmal atrial fibrillation, hyperlipidemia, hypertension, obstructive sleep apnea, and GERD. Patient follows in the office with Dr. Valles. We have been asked to see the patient in consultation for chest pain. Patient examined at the bedside. Patient states he had a restless night of sleep and had to change his shirt a few times overnight due to sweating. He states he woke up this morning and felt nauseous. He states he did had one episode of emesis. He reports midsternal and right sided chest discomfort that he describes as a heavy pressure. He reports pain in between his shoulder blades as well. He denies any radiation to the jaw or neck. He denies shortness of breath. Denies dizziness or lightheadedness. Patient reports the pain is worse with a deep breath. He also reports significant tenderness with palpation of right chest wall. EKG reveals sinus rhythm with first-degree AV block Chest xray chronic changes and mild cardiomegaly without new acute process Patient had a nuclear stress test performed in the office in 2019 which was negative for reversible ischemia 11/09/2020 Patient examined at the bedside. Patient states he is feeling better this morning. He does report mild chest discomfort but states it has improved since receiving Nitropaste. Vital signs are stable. PHYSICAL EXAM: VITAL SIGNS: Reviewed. GENERAL: Well-developed in no acute distress. HEENT: Head is normocephalic. Pupils are equal, round. Sclerae anicteric. Mucous membranes of the mouth are moist. Neck supple. No JVD or thyromegaly LUNGS: Respirations even and unlabored. Lungs essentially clear to auscultation bilaterally. HEART: Regular rate and rhythm. S1 and S2 heard. Tenderness upon palpation of right sided chest wall. ABDOMEN: Soft. Nondistended. Nontender. EXTREMITIES: Normal range of motion. No clubbing or cyanosis. Peripheral pulses intact. No lower extremity edema NEUROLOGIC: Awake and alert. Oriented x 3. ASSESSMENT: 1. Chest pain, with typical and atypical features, troponins negative 3 2. Coronary artery disease with previous PCI 3 3. History of mitral valve replacement, maze procedure, and CABG 2: right internal mammary artery to RCA and saphenous vein graft of the aorta to the second obtuse marginal artery, 2018 4. Paroxysmal atrial fibrillation 5. Hyperlipidemia 6. Hypertension 7. Obstructive sleep apnea PLAN: Echocardiogram ordered. Await results Continue current cardiac medications Patient to undergo cardiac cath tomorrow with Dr. Valles Nurse practitioner note has been reviewed by physician. Signing provider agrees with the documented findings, assessment, and plan of care. Objective - Vital Signs Vital signs: Vital Signs Temp 97.7 F 11/09/20 07:00 Pulse 78 11/09/20 07:18 Resp 16 11/09/20 08:00 BP 125/88 11/09/20 07:00 Pulse Ox 94 L 11/09/20 07:18 Intake & Output 11/08/20 11/09/20 11/09/20 18:59 06:59 18:59 Weight 116.12 kg Other: Voiding Method Toilet # Voids 1 2 - Labs CBC & Chem 7: 11/08/20 07:56 11/08/20 07:56 Labs: Abnormal Lab Results - Last 24 Hours (Table) 11/09/20 11/09/20 Range/Units 04:11 04:11 PT 25.5 H (9.9-11.9) sec INR 2.48 H (0.90-1.11) Triglycerides 160.0 H (0.0-149.0) mg/dL
[2020-11-09] MEDS: FUROSEMIDE 40 MG TAB PO SCH (11:21)
[2020-11-09] MEDS: SERTRALINE 50 MG TAB PO SCH (11:21)
[2020-11-09] MEDS: LOSARTAN 50 MG TAB PO SCH (11:21)
[2020-11-09] MEDS: carvediloL 12.5 MG TAB PO SCH (11:22)
[2020-11-09] MEDS: MULTIVITAMINS, THERA 1 EACH TAB PO SCH (11:22)
[2020-11-09] MEDS: Acetaminophen-Codeine 300-30mg TAB PO PRN (11:25)
--- NOTE | 2020-11-09 11:33 | ECHOF ---
Referral Reason:LV function MEASUREMENTS -------- HEIGHT: 182.9 cm WEIGHT: 116.1 kg BP: 130/80 RVIDd: 4.2 cm (< 3.3) IVSd: 1.4 cm (0.6 - 1.1) LVIDd: 5.1 cm (3.9 - 5.3) LVPWd: 1.5 cm (0.6 - 1.1) IVSs: 1.6 cm LVIDs: 3.6 cm LVPWs: 1.8 cm LAESV Index (A-L): 73.87 ml/m Ao Diam: 4.0 cm (2.0 - 3.7) AV Cusp: 2.5 cm (1.5 - 2.6) LA Diam: 5.3 cm (2.7 - 3.8) MV E Tj: 1.52 m/s MV DecT: 207 ms MV A Tj: 0.87 m/s MV E/A Ratio: 1.74 RAP: 5.00 mmHg RVSP: 28.22 mmHg FINDINGS -------- This was a technically difficult study with suboptimal apical views. The left ventricular size is normal. There is moderate concentric left ventricular hypertrophy. O verall left ventricular systolic function is low-normal with, an EF between 50 - 55 %. Septal wall motion is delayed and consistent with prior cardiac surgery. The right ventricle is moderately enlarged. LA is severely dilated >40 ml/m2 The right atrium was not well visualized. 5.0mg of Lumason was utilized for enhancement of images Interatrial and interventricular septum intact. The aortic valve is trileaflet and appears structurally normal. There is no evidence of aortic regu rgitation. There is no evidence of aortic stenosis. Mitral Valve Area by PHT 2.9cm The peak and mean MV gradients are 15.93mmHg 6.80mmHg as measured by doppler. Mechanical [facility]. Elian MV. Mild tricuspid regurgitation present. There is no evidence of pulmonary hypertension. The right v entricular systolic pressure, as measured by Doppler, is 28.22mmHg. There is no pulmonic regurgitation present. The aortic root size is normal. IVC Not well visulized. There is no pericardial effusion. CONCLUSIONS -------- 1. The left ventricular size is normal. 2. There is moderate concentric left ventricular hypertrophy. 3. Overall left ventricular systolic function is low-normal with, an EF between 50 - 55 %. 4. Septal wall motion is delayed and consistent with prior cardiac surgery. 5. The right ventricle is moderately enlarged. 6. LA is severely dilated >40 ml/m2 7. Mitral Valve Stenosis MVA By PHT 2.9cm with a Peak/Mean PG 15.93mmHg 6.80mmHg 8. Mechanical [facility] Elian MV. 9. Mild tricuspid regurgitation present. TURRET PUNCH OPERATOR: Ananya Morrow RDCS
--- NOTE | 2020-11-09 12:47 | P.PN ---
Subjective Progress Note Date: 11/09/20 Lesley is a 55-year-old male patient as well as well-known to me. The patient is known to have COPD with an FEV1 of 66% of predicted and he is maintained on an oral of the albuterol inhaler necessary basis. The patient has mild to moderate COPD. The patient also has obstructive sleep apnea and he is m aintained on APAP with a minimum pressure of 10 and a maximum pressure of 20. He has previous history of mitral valve replacement for regurgitation, chronic atrial fibrillation, CAD the patient has undergone previous stenting of the RCA and subsequently 2 vessel bypass surgery with BINTA to RCA and saphenous vein graft to OM 1, And hypertension. He also has a aortic aneurysm with a 4.1 cm dilation of the aortic root mild aneurysmal dilatation of the infrarenal aorta measuring 3.4 x 2.5 x 3.1 cm in size. The patient came in yesterday to the emergency department complaining of chest discomfort. He did have palpitations throughout the night and he also developed some chest pain and shortness of breath. He vomited once. He did have some minimal nausea. His chest discomfort and tightness was radiating to the back. No fever. No chills. No swelling in lower extremities. The patient hemoglobin of 16.6 and a platelet count of 224. The INR was at 3.1 with a PT of 30 and the patient is on long- term and to coagulation with warfarin regarding previous mitral valve replacement. The patient also has a normal renal function. Troponins were 0.02 and 0.01 respectively 2 and the patient had overnight interesting that came back negative. The chest x-ray showed chronic postthoracotomy changes without any acute abnormality and there was some mild cardiomegaly. No consolidation. No pleural effusion. His EKG showed sinus rhythm with a first-degree AV block and there was no ST segment changes and there was old Q waves over the anterior leads indicating an old septal infarct. The patient apparently was admitted to the hospital. His home medications have been ordered resume. Note that the patient was given nitroglycerin emergency department the symptoms improved. Subsequently symptoms came back and had another episode of chest discomfort radiating to his back. On the floor and he was given nitroglycerin again with improvement. Currently stable and chest discomfort or pain. On today's evaluation of 11/09/2020, the patient is feeling any chest pain and the patient is feeling well. His chest pain was atypical and typical in nature knowing that it is responding nicely to nitroglycerin. The patient is going to undergo a cardiac catheterization tomorrow. His INR is at 2.4. He has no chest pain for today. No other new complaints otherwise for now. No cough. No sputum production. No chest tightness. No wheezing. His INR today. No swelling in the lower extremities. Hemoglobin today is not available and yesterday's hemoglobin was at 16.8. Objective - Vital Signs Vital signs: Vital Signs Temp 97.7 F 11/09/20 07:00 Pulse 77 11/09/20 11:29 Resp 16 11/09/20 08:00 BP 125/88 11/09/20 07:00 Pulse Ox 94 L 11/09/20 07:18 Intake & Output 11/08/20 11/09/20 11/09/20 18:59 06:59 18:59 Weight 116.12 kg Other: Voiding Method Toilet # Voids 1 2 - Exam COPD: General Appearance no diaphoresis, dyspnea, pallor, or respiratory distress and speech not interrupted by breaths, not cachectic, well nourished, appears well, and obesity. HEENT no pursed lip breathing, jugular venous distention, mucous membrane cyanosis, or perioral cyanosis and mallampati classification: class 1 and Mallampati Classification: Class 4. Chest no retractions, rhonchi, hyperinflation, barrel chest, sternocleidomastoid muscle contractions, supraclavicular retractions, intercostal retractions, prolonged expiratory wheezing, or decreased air movement and decreased air movement and (normal) adventitious sounds: rales / crackles: bilaterally: midlung santamaria; sternum stable clean and intact. no signs of any infection at this point in time.. Heart no right ventricular heave, distant heart sounds, or s3 gallop; (normal) jugular vein and vein: jugular venous distention: by 0cm; and Murmurs: Unspecified Location: Diastolic: Grade 2 / IV; metallic mitral valve click heard over the precordium. GI bowel sounds: hyperactive (borborygmi) and diminished or absent. Extremities no cyanosis, clubbing, or edema. Neurologic no somnolence, confusion, or decreased mental status. Assisstive Devices: ambulates with no a ssitive devices. Gait and Mobility: gait WNL and full weight bearing. Skin: General Appearance normal and (normal) normal except as noted. - Labs CBC & Chem 7: 11/08/20 07:56 11/08/20 07:56 Labs: Abnormal Lab Results - Last 24 Hours (Table) 11/09/20 11/09/20 Range/Units 04:11 04:11 PT 25.5 H (9.9-11.9) sec INR 2.48 H (0.90-1.11) Triglycerides 160.0 H (0.0-149.0) mg/dL Assessment and Plan Plan: Dyspnea /chest pain, nonspecific, yet responded to nitroglycerin and obviously raising a concern for a cardiac pain knowing that the patient has known history of coronary artery disease, as several coronary stents including stenting of the RCA and has 2 vessel bypass surgery that was done at the time of his mitral valve replacement. Cardiac enzymes are negative. EKG is nonspecific with a first-degree AV block and an old septal infarct. Chest x-ray is nonrevealing. Cardiology consultation is being requested for now. Mild chronic obstructive pulmonary disease - continue Anoro Ellipta one inhalation a day and the patient quit smoking. The patient is on Anoro as maintenance and the patient is using albuterol as needed. His COPD is stable for now. Flu shot is recommended. J44.9: Chronic obstructive pulmonary disease, unspecified Obstructive sleep apnea syndrome - the patient is on CPAP therapy. His baseline AHI is 38. switch this patient and APAP mode with a minimum pressure of 10 and it some pressure of 20. Continue the ALEISHA treatment. He is compliant and the treatment is successful for now. No need to make an adjustment of the pressure setting. We'll continue to follow. G47.33: Obstructive sleep apnea (adult) (pediatric) History of mitral valve replacement - he is recovering from a mitral valve replacement.. The patient's follow-up echocardiographic showed a preserved valve function, normal LV. There is no paravalvular leak. The patient had FU echo and stress test and the results will be followed Z95.2: Presence of prosthetic heart valve Mitral valve regurgitation - the above-mentioned discussion I34.0: Nonrheumatic mitral (valve) insufficiency Atrial fibrillation - patient underwent clipping of the atrial appendage and the patient had a modified maze procedure. Currently is in a sinus rhythm and the rate is controlled and the patient is on long-term and to coagulation with warfarin. I48.91: Unspecified atrial fibrillation Coronary arteriosclerosis - the patient is free of any chest pain for now and he has undergone cardiac catheterization and stenting of the RCA lesion was done. Is also known to have another 40% lesion in the mid LAD. the patient also underwent 2 vessel bypass surgery with BINTA tp RCA and saphenous to OM 1. I25.10: Atherosclerotic heart disease of chilkoot coronary artery without angina pectoris Hypertensive disorder I10: Essential (primary) hypertension Aortic aneurysm - the patient has a 4.1 cm dilatation of the aortic root. He also has a mild aneurysmal dilatation of the infrarenal aorta measuring 3.4 x 2.9 x 3.1 cm in size I71.9: Aortic aneurysm of unspecified site, without rupture Plan The echocardiogram showed a preserved LV function and the mitral valve mechanical valve area was 2.9 cm without any significant stenosis or regurgitation. No evidence of any pulmonary hypertension. LV function was showing an ejection fraction of 50-55%, RV was moderately dilated, and the patient is scheduled to undergo a cardiac catheterization tomorrow. We'll continue to follow. Currently is feeling chest pain.
[2020-11-09] MEDS: carvediloL 6.25 MG TAB PO SCH (17:26)
[2020-11-09] MEDS ORDERED: WARFARIN 7.5 MG TAB PO SCH (18:00)
[2020-11-09] MEDS: MAGNESIUM OXIDE 400 MG TAB PO SCH (20:26)
[2020-11-09] MEDS: PANTOPRAZOLE 40 MG TABLET PO SCH (20:26)
[2020-11-09] MEDS: ATORVASTATIN 80 MG TAB PO SCH (20:26)
[2020-11-09] MEDS ORDERED: SODIUM CHLORIDE 0.9% 1,000 ML in EMPTY BAG 1 BAG IV ONE (23:30)
[2020-11-10] MEDS: NITROGLYCERIN OINT 1 INCH/GM PACKET TOPICAL SCH ×5 (00:15→23:28)
[2020-11-10] MEDS: carvediloL 12.5 MG TAB PO SCH (05:58)
[2020-11-10] MEDS: LOSARTAN 50 MG TAB PO SCH (05:58)
[2020-11-10] MEDS: MULTIVITAMINS, THERA 1 EACH TAB PO SCH (05:59)
[2020-11-10] MEDS: SERTRALINE 50 MG TAB PO SCH (05:59)
[2020-11-10] MEDS ORDERED: ATORVASTATIN 80 MG TAB PO ONE (06:00)
[2020-11-10] MEDS ORDERED: ASPIRIN 325 MG TAB PO ONE (06:00)
[2020-11-10 06:08] LABS: Glucose,Whole Blood 125 mg/dL (75-99)
[2020-11-10] MEDS ORDERED: HEPARIN SODIUM,PORCINE 10,000 UNIT in SODIUM CHLORIDE 0.9% 1,000 ML IRRIGATION PRN (07:00)
[2020-11-10] MEDS ORDERED: HEPARIN SODIUM,PORCINE 2,500 UNIT in SODIUM CHLORIDE 0.9% 250 ML IRRIGATION PRN (07:00)
[2020-11-10] MEDS: FORMOTEROL FUMARATE 20 MCG/2 ML NEBU INHALATION SCH ×2 (07:19→20:08)
[2020-11-10] MEDS: IPRATROPIUM 0.5 MG/2.5 ML NEBU INHALATION SCH ×4 (07:19→20:08)
--- NOTE | 2020-11-10 08:12 | P.PN ---
Subjective Principal diagnosis: Angina The patient is a 55-year-old white male with known history of atrial fibrillation CAD scheduled for cardiac catheterization today. Appreciate multiple consultants input.. Objective - Vital Signs Vital signs: Vital Signs Temp 97.5 F L 11/10/20 07:00 Pulse 76 11/10/20 07:36 Resp 17 11/10/20 07:00 BP 125/73 11/10/20 07:00 Pulse Ox 95 11/10/20 07:00 Intake & Output 11/09/20 11/10/20 11/10/20 18:59 06:59 18:59 Intake Total 540 Balance 540 Intake: Oral 540 Other: Voiding Method Toilet Toilet # Voids 1 1 - Constitutional General appearance: Present: obese - EENT Eyes: Absent: abnormal pupil - Neck Neck: Absent: lymphadenopathy - Respiratory Respiratory: bilateral: CTA - Cardiovascular Rhythm: regular Heart sounds: normal: S1, S2 Abnormal Heart Sounds: Absent: S3 Gallop - Gastrointestinal General gastrointestinal: Present: soft. Absent: tenderness - Integumentary Integumentary: Present: normal - Labs CBC & Chem 7: 11/08/20 07:56 11/08/20 07:56 Labs: Abnormal Lab Results - Last 24 Hours (Table) 11/09/20 11/09/20 11/10/20 Range/Units 04:11 04:11 06:02 PT 25.5 H (9.9-11.9) sec INR 2.48 H (0.90-1.11) POC Glucose (mg/dL) 125 H (75-99) mg/dL Triglycerides 160.0 H (0.0-149.0) mg/dL Assessment and Plan (1) Chest pain Current Visit: Yes Status: Acute Code(s): R07.9 - CHEST PAIN, UNSPECIFIED SNOMED Code(s): 66892641 (2) Atrial fibrillation Current Visit: No Status: Acute Code(s): I48.91 - UNSPECIFIED ATRIAL FIBRILLATION SNOMED Code(s): 68780261 (3) GERD (gastroesophageal reflux disease) Current Visit: No Status: Chronic Code(s): K21.9 - GASTRO-ESOPHAGEAL REFLUX DISEASE WITHOUT ESOPHAGITIS SNOMED Code(s): 285308306 (4) Hypertension Current Visit: No Status: Chronic Code(s): I10 - ESSENTIAL (PRIMARY) HYPERTENSION SNOMED Code(s): 46143963 Plan: CAD with history of atrial fibrillation.. Await cardiac catheterization today. Hopefully discharge if all tests are negative.
[2020-11-10 09:11] LABS: INR 2.17 (0.90-1.11); Prothrombin Time 22.5 sec (9.9-11.9)
--- NOTE | 2020-11-10 09:29 | P.PN ---
Subjective Progress Note Date: 11/10/20 Lesley is a 55-year-old male patient as well as well-known to me. The patient is known to have COPD with an FEV1 of 66% of predicted and he is maintained on an oral of the albuterol inhaler necessary basis. The patient has mild to moderate COPD. The patient also has obstructive sleep apnea and he is m aintained on APAP with a minimum pressure of 10 and a maximum pressure of 20. He has previous history of mitral valve replacement for regurgitation, chronic atrial fibrillation, CAD the patient has undergone previous stenting of the RCA and subsequently 2 vessel bypass surgery with BINTA to RCA and saphenous vein graft to OM 1, And hypertension. He also has a aortic aneurysm with a 4.1 cm dilation of the aortic root mild aneurysmal dilatation of the infrarenal aorta measuring 3.4 x 2.5 x 3.1 cm in size. The patient came in yesterday to the emergency department complaining of chest discomfort. He did have palpitations throughout the night and he also developed some chest pain and shortness of breath. He vomited once. He did have some minimal nausea. His chest discomfort and tightness was radiating to the back. No fever. No chills. No swelling in lower extremities. The patient hemoglobin of 16.6 and a platelet count of 224. The INR was at 3.1 with a PT of 30 and the patient is on long- term and to coagulation with warfarin regarding previous mitral valve replacement. The patient also has a normal renal function. Troponins were 0.02 and 0.01 respectively 2 and the patient had overnight interesting that came back negative. The chest x-ray showed chronic postthoracotomy changes without any acute abnormality and there was some mild cardiomegaly. No consolidation. No pleural effusion. His EKG showed sinus rhythm with a first-degree AV block and there was no ST segment changes and there was old Q waves over the anterior leads indicating an old septal infarct. The patient apparently was admitted to the hospital. His home medications have been ordered resume. Note that the patient was given nitroglycerin emergency department the symptoms improved. Subsequently symptoms came back and had another episode of chest discomfort radiating to his back. On the floor and he was given nitroglycerin again with improvement. Currently stable and chest discomfort or pain. On today's evaluation of 11/09/2020, the patient is feeling any chest pain and the patient is feeling well. His chest pain was atypical and typical in nature knowing that it is responding nicely to nitroglycerin. The patient is going to undergo a cardiac catheterization tomorrow. His INR is at 2.4. He has no chest pain for today. No other new complaints otherwise for now. No cough. No sputum production. No chest tightness. No wheezing. His INR today. No swelling in the lower extremities. Hemoglobin today is not available and yesterday's hemoglobin was at 16.8. 11/10/2020, the patient is being seen in follow-up. The plan is to proceed with a cardiac catheterization today. No chest pain for today. Did have some vague discomfort overnight for which she was given Tylenol. He is currently free of any chest pain. He is off the Coumadin and INR is at 2.1. No new complaints otherwise for now. He is resting comfortably in bed. No shortness of breath is on room air oxygen. Utilizes CPAP overnight. Objective - Vital Signs Vital signs: Vital Signs Temp 97.5 F L 11/10/20 07:00 Pulse 76 11/10/20 07:36 Resp 17 11/10/20 07:00 BP 125/73 11/10/20 07:00 Pulse Ox 95 11/10/20 07:00 Intake & Output 11/09/20 11/10/20 11/10/20 18:59 06:59 18:59 Intake Total 540 Balance 540 Intake: Oral 540 Other: Voiding Method Toilet Toilet Toilet # Voids 1 1 - Exam COPD: General Appearance no diaphoresis, dyspnea, pallor, or respiratory distress and speech not interrupted by breaths, not cachectic, well nourished, appears well, and obesity. HEENT no pursed lip breathing, jugular venous distention, mucous membrane cyanosis, or perioral cyanosis and mallampati classification: class 1 and Mallampati Classification: Class 4. Chest no retractions, rhonchi, hyperinflation, barrel chest, sternocleidomastoid muscle contractions, supraclavicular retractions, intercostal retractions, prolonged expiratory wheezing, or decreased air movement and decreased air movement and (normal) adventitious sounds: rales / crackles: bilaterally: midlung [place]; sternum stable clean and intact. no signs of any infection at this point in time.. Heart no right ventricular heave, distant heart sounds, or s3 gallop; (normal) jugular vein and vein: jugular venous distention: by 0cm; and Murmurs: Unspecified Location: Diastolic: Grade 2 / IV; metallic mitral valve click heard over the precordium. GI bowel sounds: hyperactive (borborygmi) and diminished or absent. Extremities no cyanosis, clubbing, or edema. Neurologic no somnolence, confusion, or decreased mental status. Assisstive Devices: ambulates with no assitive devices. Gait and Mobility: gait WNL and full weight bearing. Skin: General Appearance normal and (normal) normal except as noted. - Labs CBC & Chem 7: 11/08/20 07:56 11/08/20 07:56 Labs: Abnormal Lab Results - Last 24 Hours (Table) 11/09/20 11/10/20 11/10/20 Range/Units 04:11 04:59 06:02 PT 25.5 H 22.5 H (9.9-11.9) sec INR 2.48 H 2.17 H (0.90-1.11) POC Glucose (mg/dL) 125 H (75-99) mg/dL Assessment and Plan Plan: Dyspnea /chest pain, nonspecific, yet responded to nitroglycerin and obviously raising a concern for a cardiac pain knowing that the patient has known history of coronary artery disease, as several coronary stents including stenting of the RCA and has 2 vessel bypass surgery that was done at the time of his mitral valve replacement. Cardiac enzymes are negative. EKG is nonspecific with a first-degree AV block and an old septal infarct. Chest x-ray is nonrevealing. Cardiology consultation is being requested for now. Mild chronic obstructive pulmonary disease - continue Anoro Ellipta one inhalation a day and the patient quit smoking. The patient is on Anoro as maintenance and the patient is using albuterol as needed. His COPD is stable for now. Flu shot is recommended. J44.9: Chronic obstructive pulmonary disease, unspecified Obstructive sleep apnea syndrome - the patient is on CPAP therapy. His baseline AHI is 38. switch this patient and APAP mode with a minimum pressure of 10 and it some pressure of 20. Continue the ALEISHA treatment. He is compliant and the treatment is successful for now. No need to make an adjustment of the pressure setting. We'll continue to follow. G47.33: Obstructive sleep apnea (adult) (pediatric) History of mitral valve replacement - he is recovering from a mitral valve replacement.. The patient's follow-up echocardiographic showed a preserved valve function, normal LV. There is no paravalvular leak. The patient had FU echo and stress test and the results will be followed Z95.2: Presence of prosthetic heart valve Mitral valve regurgitation - the above-mentioned discussion I34.0: Nonrheumatic mitral (valve) insufficiency Atrial fibrillation - patient underwent clipping of the atrial appendage and the patient had a modified maze procedure. Currently is in a sinus rhythm and the rate is controlled and the patient is on long-term and to coagulation with warfarin. I48.91: Unspecified atrial fibrillation Coronary arteriosclerosis - the patient is free of any chest pain for now and he has undergone cardiac catheterization and stenting of the RCA lesion was done. Is also known to have another 40% lesion in the mid LAD. the patient also underwent 2 vessel bypass surgery with BINTA tp RCA and saphenous to OM 1. I25.10: Atherosclerotic heart disease of [place] coronary artery without angina pectoris Hypertensive disorder I10: Essential (primary) hypertension Aortic aneurysm - the patient has a 4.1 cm dilatation of the aortic root. He also has a mild aneurysmal dilatation of the infrarenal aorta measuring 3.4 x 2.9 x 3.1 cm in size I71.9: Aortic aneurysm of unspecified site, without rupture Plan The echocardiogram showed a preserved LV function and the mitral valve mechan ical valve area was 2.9 cm without any significant stenosis or regurgitation. No evidence of any pulmonary hypertension. LV function was showing an ejection fraction of 50-55%, RV was moderately dilated, and the patient is scheduled to undergo a cardiac catheterization will be done today by Dr. mariajose duke. Meanwhile, the patient is free of any chest pain and he patient is hemodynamically stable at this point in time. He is off the Coumadin and INR is down to 2.1. We'll continue to follow. Possible home today if the catheterization does not show any significant abnormalities.
[2020-11-10] MEDS ORDERED: LIDOCAINE 1% INJ 10MG/ML (20 ML MDV) ONE (10:22)
[2020-11-10] MEDS ORDERED: VERAPAMIL 2.5 MG/ML 2 ML AMP ONE (10:22)
[2020-11-10] MEDS ORDERED: fentaNYL (PF) 50 MCG/ML 2 ML AMP ONE (10:29)
[2020-11-10] MEDS ORDERED: HEPARIN SODIUM 1,000 UN/ML (10ML VL) ONE (10:29)
[2020-11-10] MEDS ORDERED: IV FLUID CONTINUATION 1,000 ML IV ONE (10:40)
[2020-11-10] MEDS ORDERED: MIDAZOLAM 2 MG/2 ML VIAL IVP ONE (10:56)
[2020-11-10] MEDS ORDERED: LIDOCAINE 1% INJ 10MG/ML (20 ML MDV) SQ ONE (10:56)
[2020-11-10] MEDS ORDERED: VERAPAMIL SYRINGE (5 MG/10 ML) INTRAARTER ONE (11:00)
[2020-11-10] MEDS ORDERED: IOPAMIDOL-370 100ML BTL INJ ONE (11:18)
[2020-11-10] MEDS ORDERED: IOPAMIDOL-370 50ML BTL INJ ONE (11:37)
[2020-11-10] MEDS: FUROSEMIDE 40 MG TAB PO SCH (12:11)
--- NOTE | 2020-11-10 12:45 | CC ---
CARDIAC CATHETERIZATION REPORT DATE OF SERVICE: 11/10/2020 PROCEDURE: Left heart catheterization, coronary angiography and selective injection of the right internal mammary artery graft. PERFORMED BY: Dr. Perry Valles. Moderate conscious sedation time was 51 minutes. Patient was administered Versed. Oxygen saturation, hemodynamics and EKG were monitored closely. CLINICAL INFORMATION: Mr. Tristen Hare is a 55-year-old gentleman with history of prior inferior GA and stenting of RCA followed by a mitral valve replacement because of significant mitral regurgitation seen with some structural mitral valve disease. Mitral valve was replaced with a mechanical valve and also had 2 bypasses, one was a right internal mammary artery graft to RCA and another was a vein graft to the distal circumflex. The patient came into the hospital with chest pain suggestive angina, had a mild troponin elevation and was advised cardiac cath after due discussion regarding risks, benefits, and options. PROCEDURE NOTE: Under local anesthesia and strict aseptic precautions, a 6-[place] introducer was placed in the right radial artery. I used a JR4 and a JL3.5 catheters and performed coronary angiography. Initially I tried with a JR4, but switched over to a Fidencio catheter and did a selective injection of the right internal mammary artery graft. I tried the same Fidencio catheter, right catheter as well as a modified AR catheter but I could not selectively inject the vein graft to the circumflex. I performed an aortogram in the DICK projection with a pigtail catheter. The patient tolerated the procedure well. The sheath was taken out and TR band applied as per protocol. His INR was 2.7. Patient has a mechanical mitral valve. Coumadin will be resumed later this evening. CARDIAC CATHETERIZATION FINDINGS: The left ventricular end-diastolic pressure was about 13 mmHg without any gradient across aortic valve. CORONARY ANGIOGRAPHY FINDINGS: RIGHT CORONARY ARTERY: This is a dominant vessel which is a totally occluded in the midportion and there is also a proximal 90% stenosis. There is a conus branch that comes off and this conus branch comes very proximally, almost has a separate origin. The conus branch is widely patent and supplies a limited amount of myocardium. The RCA therefore is dominant, totally occluded in the midportion. LEFT MAIN CORONARY ARTERY: Very short vessel immediately bifurcates into LAD and circumflex. No significant disease. LEFT ANTERIOR DESCENDING CORONARY ARTERY: Good caliber vessel extends along the anterior wall, has minor irregularities, no significant disease, gives off diagonal branch proximally, several small septal branches curves over the apex to supply the inferoapical portion of left ventricle. LEFT POSTERIOR CIRCUMFLEX CORONARY ARTERY: This is a nondominant vessel, gives off an obtuse marginal, which is the first obtuse marginal is good caliber, decent size. No significant disease. Has minor irregularities. The circumflex then runs in the AV groove and is totally occluded in that portion and distally on a previous angiogram I saw 2 small branches, but now the circumflex is occluded in the midportion without much antegrade flow after the total occlusion. The circumflex [place] is therefore occluded in the mid/distal portion. SAPHENOUS VEIN GRAFT TO THE CIRCUMFLEX MARGINAL: This graft was not visualized on multiple projections and also an aortogram. RIGHT INTERNAL MAMMARY ARTERY GRAFT TO THE RCA: This graft was selectively cannulated, has no significant disease in the origin of the graft, body of the graft and beyond the insertion opacified RCA has minor irregularities no significant disease. The distal RCA is the site of anastomosis. AORTOGRAM: This was performed in a 30-degree DICK projection reveals that the aortic root is mildly enlarged. There is no aortic regurgitation. I can visualize only the [place] RCA and [place] left coronary artery. I could not visualize any vein graft to the circumflex. FINAL IMPRESSION: This patient has probably total occlusion of the vein graft to circumflex. The right internal mammary graft to RCA is patent. LAD and branches have no significant disease. Distal circumflex is occluded. [place] RCA has a mid occlusion. Filling pressures are acceptable. No gradient. RECOMMENDATIONS: I am recommending medical therapy. No revascularization is indicated. We will pursue aggressive medical therapy and hopefully discharge the patient tomorrow. Findings were discussed with the patient and . MMODL / IJN: [id number] /
[2020-11-10] MEDS: MORPHINE SULFATE 2 MG/ML SYRINGE IVP PRN (13:48)
[2020-11-10] MEDS: SODIUM CHLORIDE 0.9% 1,000 ML IV SCH (14:15)
[2020-11-10] MEDS: carvediloL 6.25 MG TAB PO SCH (17:32)
[2020-11-10] MEDS ORDERED: WARFARIN 7.5 MG TAB PO ONE (18:00)
[2020-11-10] MEDS: PANTOPRAZOLE 40 MG TABLET PO SCH (19:28)
[2020-11-10] MEDS: MAGNESIUM OXIDE 400 MG TAB PO SCH (19:28)
[2020-11-10] MEDS: Acetaminophen-Codeine 300-30mg TAB PO PRN (19:28)
[2020-11-11] MEDS: SODIUM CHLORIDE 0.9% 1,000 ML IV SCH (02:46)
[2020-11-11] MEDS: NITROGLYCERIN OINT 1 INCH/GM PACKET TOPICAL SCH (04:33)
[2020-11-11] MEDS: IPRATROPIUM 0.5 MG/2.5 ML NEBU INHALATION SCH (07:09)
[2020-11-11] MEDS: FORMOTEROL FUMARATE 20 MCG/2 ML NEBU INHALATION SCH (07:09)
[2020-11-11 08:33] VITALS: BP 167/81; PULSE 67; RESP 14; TEMP 97.6
[2020-11-11] MEDS: MULTIVITAMINS, THERA 1 EACH TAB PO SCH (08:35)
[2020-11-11] MEDS: FUROSEMIDE 40 MG TAB PO SCH (08:35)
[2020-11-11] MEDS: LOSARTAN 50 MG TAB PO SCH (08:35)
[2020-11-11] MEDS: SERTRALINE 50 MG TAB PO SCH (08:35)
[2020-11-11] MEDS: carvediloL 12.5 MG TAB PO SCH (08:35)
--- NOTE | 2020-11-11 08:50 | P.DS ---
Providers Date of admission: 11/09/20 14:44 Attending physician: Chandler Valderrama Consults: 11/08/20 09:16 Consult Physician Urgent Consulting Provider: Michael Jean-Baptiste Consult Reason/Comments: cp Do you want consulting provider notified?: Yes Primary care physician: Chandler Valderrama - Discharge Diagnosis(es) (1) Chest pain Current Visit: Yes Status: Acute (2) Atrial fibrillation Current Visit: No Status: Acute (3) GERD (gastroesophageal reflux disease) Current Visit: No Status: Chronic (4) Hypertension Current Visit: No Status: Chronic Hospital Course: Patient is 55-year-old white male with known history of COPD came in with unstable angina. Ended up having cardiac catheterization nominal. No intervention other than that was done and medication therapy as indicated. The patient is now stable and will follow-up with me in about 7-10 days. Patient Condition at Discharge: Good Plan - Discharge Summary Discharge Rx Participant: No New Discharge Prescriptions: New Nitroglycerin Sl Tabs [Nitrostat] 0.4 mg SUBLINGUAL Q5M PRN #0 tab PRN Reason: Chest Pain Tiotropium 18 Mcg/Puff [Spiriva] 1 puff INHALATION DAILY #1 device Continue Multivitamin [Men's Multi-Vitamin] 1 tab PO DAILY Fish Oil/Dha/Epa [Fish Oil 1,200 mg Fish Oil] 1 cap PO DAILY Umeclidinium Brm/Vilanterol Tr [Anoro Ellipta 62.5-25 Mcg INH] 1 puff INHALATION RT-DAILY Aspirin 81 mg PO DAILY #30 chew Atorvastatin [Lipitor] 80 mg PO HS #30 tab Sertraline [Zoloft] 50 mg PO DAILY Magnesium Oxide [Mag-Ox] 500 mg PO HS Losartan [Cozaar] 50 mg PO DAILY Furosemide [Lasix] 40 mg PO DAILY carvediloL [Coreg] 12.5 mg PO DAILY carvediloL [Coreg] 6.25 mg PO DAILY@1600 Warfarin [Coumadin] 5 mg PO MOFR Warfarin [Coumadin] 7.5 mg PO SUTUWETHSA Pantoprazole [Protonix] 40 mg PO HS Discharge Medication List Multivitamin [Men's Multi-Vitamin] 1 tab PO DAILY 01/22/14 [History] Fish Oil/Dha/Epa [Fish Oil 1,200 mg Fish Oil] 1 cap PO DAILY 11/06/17 [History] Umeclidinium Brm/Vilanterol Tr [Anoro Ellipta 62.5-25 Mcg INH] 1 puff INHALATION RT-DAILY 07/04/18 [History] Aspirin 81 mg PO DAILY #30 chew 08/24/18 [Rx] Atorvastatin [Lipitor] 80 mg PO HS #30 tab 08/24/18 [Rx] Furosemide [Lasix] 40 mg PO DAILY 05/20/19 [History] Losartan [Cozaar] 50 mg PO DAILY 05/20/19 [History] Magnesium Oxide [Mag-Ox] 500 mg PO HS 05/20/19 [History] Sertraline [Zoloft] 50 mg PO DAILY 05/20/19 [History] carvediloL [Coreg] 6.25 mg PO DAILY@1600 05/20/19 [History] carvediloL [Coreg] 12.5 mg PO DAILY 05/20/19 [History] Pantoprazole [Protonix] 40 mg PO HS 11/08/20 [History] Warfarin [Coumadin] 5 mg PO MOFR 11/08/20 [History] Warfarin [Coumadin] 7.5 mg PO SUTUWETHSA 11/08/20 [History] Nitroglycerin Sl Tabs [Nitrostat] 0.4 mg SUBLINGUAL Q5M PRN #0 tab 11/11/20 [Rx] Tiotropium 18 Mcg/Puff [Spiriva] 1 puff INHALATION DAILY #1 device 11/11/20 [Rx] Follow up Appointment(s)/Referral(s): Lily Valles MD [STAFF PHYSICIAN] - 11/17/20 3:30 pm (Follow up in the office with Dr. NAN Valles as scheduled for you) Chandler Valderrama MD [Primary Care Provider] - 1 Week Patient Instructions/Handouts: *[facility] - After Heart Catheterization - Am bulatory Care Instructions, After Radial Heart Catheterization (GEN) Activity/Diet/Wound Care/Special Instructions: heart catheterization completed 11/10/20 right radial puncture
[2020-11-11] MEDS ORDERED: ASPIRIN 81 MG PO SCH (09:00)
--- NOTE | 2020-11-11 10:03 | P.PN ---
Subjective Progress Note Date: 11/11/20 CHIEF COMPLAINT: Chest pain HISTORY OF PRESENT ILLNESS: 11/08/2020 This is a 55-year-old male with a past medical history significant for coronary artery disease with previous PCI 3, mitral valve replacement, Maze procedure, and CABG 2 (right internal mammary artery to RCA and saphenous vein graft of the aorta to the second obtuse marginal artery) in 2018, paroxysmal atrial fibrillation, hyperlipidemia, hypertension, obstructive sleep apnea, and GERD. Patient follows in the office with Dr. Valles. We have been asked to see the patient in consultation for chest pain. Patient examined at the bedside. Patient states he had a restless night of sleep and had to change his shirt a few times overnight due to sweating. He states he woke up this morning and felt nauseous. He states he did had one episode of emesis. He reports midsternal and right sided chest discomfort that he describes as a heavy pressure. He reports pain in between his shoulder blades as well. He denies any radiation to the jaw or neck. He denies shortness of breath. Denies dizziness or lightheadedness. Patient reports the pain is worse with a deep breath. He also reports significant tenderness with palpation of right chest wall. EKG reveals sinus rhythm with first-degree AV block Chest xray chronic changes and mild cardiomegaly without new acute process Patient had a nuclear stress test performed in the office in 2019 which was negative for reversible ischemia 11/09/2020 Patient examined at the bedside. Patient states he is feeling better this morning. He does report mild chest discomfort but states it has improved since receiving Nitropaste. Vital signs are stable. 11/11/2020 Patient examined this morning at the bedside. He is status post cardiac cath with Dr. Valles revealing total occlusion of the vein graft to the circumflex. BINTA to RCA is patent. Distal circumflex is occluded. [place] RCA has mid occlusion. Medical management was recommended. Patient currently denies chest pain. He denies shortness of breath. Vital signs are stable. PHYSICAL EXAM: VITAL SIGNS: Reviewed. GENERAL: Well-developed in no acute distress. HEENT: Head is normocephalic. Pupils are equal, round. Sclerae anicteric. Mucous membranes of the mouth are moist. Neck supple. No JVD or thyromegaly LUNGS: Respirations even and unlabored. Lungs essentially clear to auscultation bilaterally. HEART: Regular rate and rhythm. S1 and S2 heard. ABDOMEN: Soft. Nondistended. Nontender. EXTREMITIES: Normal range of motion. No clubbing or cyanosis. Peripheral pulses intact. No lower extremity edema. Right radial cath site with pulse present. NEUROLOGIC: Awake and alert. Oriented x 3. ASSESSMENT: 1. Chest pain, with typical and atypical features, troponins negative 3 2. Coronary artery disease with previous PCI 3 3. History of mitral valve replacement, maze procedure, and CABG 2: right internal mammary artery to RCA and saphenous vein graft of the aorta to the second obtuse marginal artery, 2018 4. Paroxysmal atrial fibrillation 5. Hyperlipidemia 6. Hypertension 7. Obstructive sleep apnea PLAN: Continue current cardiac medications Patient is stable for discharge home today from a cardiac standpoint. He is to follow up next week with Dr. Valles Nurse practitioner note has been reviewed by physician. Signing provider agrees with the documented findings, assessment, and plan of care. Objective - Vital Signs Vital signs: Vital Signs Temp 97.6 F 11/11/20 07:00 Pulse 69 11/11/20 07:27 Resp 14 11/11/20 07:00 BP 167/81 11/11/20 07:00 Pulse Ox 97 11/11/20 07:00 Intake & Output 11/10/20 11/11/20 11/11/20 18:59 06:59 18:59 Intake Total 272 1200 Balance 272 1200 Intake: IV 50 Intake, IV Titration 1200 Amount Sodium Chloride 0.9% 1, 1200 000 ml @ 75 mls/hr IV . [id number] SAMANTHA Rx#:[id number] Oral 222 Other: Voiding Method Toilet Toilet Toilet # Voids 1 1 - Labs CBC & Chem 7: 11/08/20 07:56 11/08/20 07:56
[2020-11-11 11:05] LABS: INR 1.63 (0.90-1.11); Prothrombin Time 17.2 sec (9.9-11.9)
[2020-11-11] MEDS ORDERED: ATORVASTATIN 80 MG TAB PO SCH (21:00)
[2020-11-12] MEDS ORDERED: WARFARIN 5 MG TAB PO SCH (18:00)
--- NOTE | 2020-11-14 07:55 | CDI ---
Documentation Clarification Form Date: 11/14/20 From: Kindra Best Phone: Admit Date: 11/09/2020 02:44:00 PM Patient Name: Tristen Hare Visit Number: [id number] Discharge Date: 11/11/2020 09:41:00 AM ATTENTION: The Clinical Documentation Specialists (CDI) and [facility] Coding Staff appreciate your assistance in clarifying documentation. Please respond to the clarification below the line at the bottom and electronically sign. The CDI & [facility] Coding staff will review the response and follow-up if needed. Please note: Queries are made part of the Legal Health Record. If you have any questions, please contact the author of this message via ITS. Dr. Lily Valles, CHF/heart failure is documented in the ED note, both consults and H&P. History/Risk Factors: CAD w saphenous vein occlusion, HTN, ALEISHA, PAF, COPD, AAA, HLD, obesity, GERD Clinical Indicators: Hx of heart failure, s/p CABG, cardiac stents and mitral valve replacement. VS/Pulse OX: T-98.5, P*89, R*18, BP-155/97, O2 sat-95 BNP: 55 Echocardiogram Results: Overall left ventricular systolic function is low- normal with, an EF between 50 - 55 %. Chest X Ray: Chronic changes and mild cardiomegaly without new acute process. Treatment: Lasix 40 mg PO daily In your professional opinion, can you please clarify the type of chronic CHF if known? Systolic Heart Failure Diastolic Heart Failure Systolic & Diastolic Heart Failure Unable to Determine Other, please specify MTDD
== END 2020-11-11 09:41 | disposition home or self-care (01) ==
LOC: EC 07:06 → 6NMEDSUR 09:16 → INTOOBSV 11-09 14:44 → OBSVTOIN 11-09 14:44 → UNDODISIN 11-11 09:41
PROVIDERS: ADMIT Family Medicine; ATTEND Family Medicine
DX: I25.110 Atherosclerotic heart disease of native coronary artery with unstable angina pectoris (principal); I25.82 Chronic total occlusion of coronary artery; I48.20 Chronic atrial fibrillation, unspecified; K21.9 Gastro-esophageal reflux disease without esophagitis; I11.0 Hypertensive heart disease with heart failure; J44.9 Chronic obstructive pulmonary disease, unspecified; E78.5 Hyperlipidemia, unspecified; G47.33 Obstructive sleep apnea (adult) (pediatric); I71.9 Aortic aneurysm of unspecified site, without rupture; I50.9 Heart failure, unspecified; Z98.890 Other specified postprocedural states; Z88.0 Allergy status to penicillin; E66.9 Obesity, unspecified; Z68.34 Body mass index [BMI] 34.0-34.9, adult; Z20.822 Contact with and (suspected) exposure to COVID-19; I44.0 Atrioventricular block, first degree; I45.10 Unspecified right bundle-branch block; Z79.899 Other long term (current) drug therapy; Z79.01 Long term (current) use of anticoagulants; Z79.82 Long term (current) use of aspirin; Z95.2 Presence of prosthetic heart valve; Z95.1 Presence of aortocoronary bypass graft; Z95.5 Presence of coronary angioplasty implant and graft; Z87.01 Personal history of pneumonia (recurrent); Z87.891 Personal history of nicotine dependence; Z87.19 Personal history of other diseases of the digestive system; Z90.49 Acquired absence of other specified parts of digestive tract; Z82.49 Family history of ischemic heart disease and other diseases of the circulatory system; Z82.69 Family history of other diseases of the musculoskeletal system and connective tissue
CPT/HCPCS: 96376; 96374; 93005 ×2; 99285; 36415; 94640 ×8; 94760; 93306; 93459; 93567; 85379; 83880; 80061; 80053; 83735; 84484; 85025; 85610 ×4; 85730; 87635; 71046; G0378 ×4; C1769; C1894; J2250; J2001; J2270 ×2; Q9950; Q9967 ×2

== ENCOUNTER 2021-06-20 06:57 | Inpatient (IN) | payer BC ==
[2021-06-20] MEDS ORDERED: IPRATROPIUM-ALBUTEROL 3 ML NEB INHALATION STA (07:28)
[2021-06-20] MEDS ORDERED: ALBUTEROL NEBULIZED 2.5 MG/3 ML INHALATION STA (07:28)
[2021-06-20 07:38] LABS: Basophils # (A) 0.1 k/uL (0-0.2); Basophils % (A) 1 %; Eosinophils # (A) 0.2 k/uL (0-0.7); Eosinophils % (A) 2 %; HCT 43.5 % (39.0-53.0); HGB 14.8 gm/dL (13.0-17.5); Lymphocytes # (A) 1.4 k/uL (1.0-4.8); Lymphocytes % (A) 14 %; MCH 31.2 pg (25.0-35.0); MCV 91.8 fL (80.0-100.0); Mean Platelet Volume 8.8; Monocytes # (A) 0.6 k/uL (0-1.0); Monocytes % (A) 6 %; Neutrophils # (A) 7.3 k/uL (1.3-7.7); Neutrophils % (A) 75 %; Platelet Count 220 k/uL (150-450); RBC 4.74 m/uL (4.30-5.90); RDW 13.3 % (11.5-15.5); WBC 9.8 k/uL (3.8-10.6)
--- NOTE | 2021-06-20 07:42 | ED ---
General Adult HPI - General Chief complaint: Shortness of Breath Stated complaint: SOB Time Seen by Provider: 06/20/21 07:12 Source: patient, RN notes reviewed, old records reviewed Mode of arrival: wheelchair - History of Present Illness Initial comments: 56-year-old male presenting for evaluation of dyspnea. This began this morning. He denies any preceding cough. Denies fever. Denies orthopnea. He wears a CPAP at night. He denies central chest pain. Denies lower extremities swelling or pain. He is on Coumadin. He has history of atrial fibrillation, mechanical heart valve, COPD and CHF. - Related Data Home Medications Medication Instructions Recorded Confirmed Multivitamin [Men's Multi-Vitamin] 1 tab PO DAILY 01/22/14 11/08/20 Fish Oil/Dha/Epa [Fish Oil 1,200 1 cap PO DAILY 11/06/17 11/08/20 mg Fish Oil] Umeclidinium Brm/Vilanterol Tr 1 puff INHALATION RT-DAILY 07/04/18 11/08/20 [Anoro Ellipta 62.5-25 Mcg INH] Furosemide [Lasix] 40 mg PO DAILY 05/20/19 11/08/20 Losartan [Cozaar] 50 mg PO DAILY 05/20/19 11/08/20 Magnesium Oxide [Mag-Ox] 500 mg PO HS 05/20/19 11/08/20 Sertraline [Zoloft] 50 mg PO DAILY 05/20/19 11/08/20 carvediloL [Coreg] 6.25 mg PO DAILY@1600 05/20/19 11/08/20 carvediloL [Coreg] 12.5 mg PO DAILY 05/20/19 11/08/20 Pantoprazole [Protonix] 40 mg PO HS 11/08/20 11/08/20 Warfarin [Coumadin] 5 mg PO MOFR 11/08/20 11/08/20 Warfarin [Coumadin] 7.5 mg PO SUTUWETHSA 11/08/20 11/08/20 Previous Rx's Medication Instructions Recorded Aspirin 81 mg PO DAILY #30 chew 08/24/18 Atorvastatin [Lipitor] 80 mg PO HS #30 tab 08/24/18 Nitroglycerin Sl Tabs [Nitrostat] 0.4 mg SUBLINGUAL Q5M PRN #0 tab 11/11/20 Tiotropium 18 Mcg/Puff [Spiriva] 1 puff INHALATION DAILY #1 device 11/11/20 Allergies Allergy/AdvReac Type Severity Reaction Status Date / Time Penicillins Allergy Unknown Verified 06/20/21 07:10 Childhood Review of Systems ROS Statement: Those systems with pertinent positive or pertinent negative responses have been documented in the HPI. ROS Other: All systems not noted in ROS Statement are negative. Past Medical History Past Medical History: Atrial Fibrillation, Coronary Artery Disease (CAD), Heart Failure, GERD/Reflux, Hyperlipidemia, Hypertension, Pneumonia, Sleep Apnea/ CPAP/BIPAP Additional Past Medical History / Comment(s): ALEISHA with Cpap use History of Any Multi-Drug Resistant Organisms: None Reported Past Surgical History: Appendectomy, Heart Catheterization With Stent Additional Past Surgical History / Comment(s): 2017 PCI with stent, 2017 CABG 2 vessel with mitral valve replacement, cardioversion x 3, DYLAN x2, EGD, colonoscopy, stress test done Past Anesthesia/Blood Transfusion Reactions: No Reported Reaction Date of Last Stent Placement:: 01/22/18 Past Psychological History: No Psychological Hx Reported Smoking Status: Former smoker Past Alcohol Use History: None Reported Past Drug Use History: None Reported - Past Family History Father Family Medical History: Congestive Heart Failure (CHF) Additional Family Medical History / Comment(s): Father of CHF at the age of 68yrs. Mother Family Medical History: No Reported History Additional Family Medical History / Comment(s): Mother at the age of 62 or 63 yrs from myasthenia gravis. General Exam General appearance: alert, in no apparent distress Head exam: Present: atraumatic, normocephalic Eye exam: Present: normal appearance, PERRL ENT exam: Present: normal exam Neck exam: Present: normal inspection. Absent: tenderness, meningismus Respiratory exam: Present: other (Tachypnea, good air entry). Absent: wheezes, rales Cardiovascular Exam: Present: regular rate, normal rhythm GI/Abdominal exam: Present: soft. Absent: distended, tenderness Extremities exam: Present: normal inspection, normal capillary refill. Absent: calf tenderness Neurological exam: Present: alert, oriented X3, CN II-XII intact. Absent: motor sensory deficit Psychiatric exam: Present: normal affect, normal mood Skin exam: Present: warm, dry, intact Course Vital Signs 06/20/21 06/20/21 06/20/21 07:06 08:04 08:24 Temperature 98.6 F Pulse Rate 89 77 76 Respiratory 23 20 Rate Blood Pressure 180/96 O2 Sat by Pulse 95 Oximetry 06/20/21 09:03 Temperature Pulse Rate 75 Respiratory 20 Rate Blood Pressure 164/92 O2 Sat by Pulse 96 Oximetry - Reevaluation(s) Reevaluation #1: 06/20/21 09:09 After nebulized albuterol and Atrovent the patient does have improvement in respiratory status. EKG Findings - EKG Comments: EKG Findings:: EKG: Sinus rhythm there is breathing artifact throughout limiting evaluation. No ST segment elevation. There is a first-degree AV block with MI interval 252, ventricular rate of 89, QRS duration 110, QTC 455 Medical Decision Making - Medical Decision Making 56-year-old male presenting with dyspnea. History of COPD and CHF. This began after taking a shower this morning. He has no central chest pain. No lower extremity pain or swelling. No orthopnea. Patient has an x-ray showing patchy infiltrate bilaterally. Patient treated for both likely COPD exacerbation and concur pneumonia. His coronavirus testing is negative. His troponin and BNP are negative. I did discuss case with Dr. Valderrama who will admit. Both pulmonology and cardiology will be placed on consult. - Lab Data Result diagrams: 06/20/21 07:28 06/20/21 07:28 Lab Results 06/20/21 06/20/21 06/20/21 Range/Units 07:28 07:28 07:28 WBC 9.8 (3.8-10.6) k/uL RBC 4.74 (4.30-5.90) m/uL Hgb 14.8 (13.0-17.5) gm/dL Hct 43.5 (39.0-53.0) % MCV 91.8 (80.0-100.0) fL MCH 31.2 (25.0-35.0) pg MCHC 34.0 (31.0-37.0) g/dL RDW 13.3 (11.5-15.5) % Plt Count 220 (150-450) k/uL MPV 8.8 Neutrophils % 75 % Lymphocytes % 14 % Monocytes % 6 % Eosinophils % 2 % Basophils % 1 % Neutrophils # 7.3 (1.3-7.7) k/uL Lymphocytes # 1.4 (1.0-4.8) k/uL Monocytes # 0.6 (0-1.0) k/uL Eosinophils # 0.2 (0-0.7) k/uL Basophils # 0.1 (0-0.2) k/uL PT 20.7 H (9.0-12.0) sec INR 2.1 H (<1.2) APTT 32.4 H (22.0-30.0) sec Sodium 142 (137-145) mmol/L Potassium 4.2 (3.5-5.1) mmol/L Chloride 107 (98-107) mmol/L Carbon Dioxide 25 (22-30) mmol/L Anion Gap 10 mmol/L BUN 17 (9-20) mg/dL Creatinine 0.68 (0.66-1.25) mg/dL Est GFR (CKD-EPI)AfAm >90 (>60 ml/min/1.73 sqM) Est GFR (CKD-EPI)NonAf >90 (>60 ml/min/1.73 sqM) Glucose 136 H (74-99) mg/dL Plasma Lactic Acid Wilfrid (0.7-2.0) mmol/L Calcium 9.6 (8.4-10.2) mg/dL Magnesium 1.6 (1.6-2.3) mg/dL Total Bilirubin 0.8 (0.2-1.3) mg/dL AST 93 H (17-59) U/L ALT 65 H (4-49) U/L Alkaline Phosphatase 164 H (38-126) U/L Troponin I (0.000-0.034) ng/mL NT-Pro-B Natriuret Pep pg/mL Total Protein 7.3 (6.3-8.2) g/dL Albumin 4.4 (3.5-5.0) g/dL Coronavirus (PCR) (Not Detectd) 06/20/21 06/20/21 06/20/21 Range/Units 07:28 07:28 07:28 WBC (3.8-10.6) k/uL RBC (4.30-5.90) m/uL Hgb (13.0-17.5) gm/dL Hct (39.0-53.0) % MCV (80.0-100.0) fL MCH (25.0-35.0) pg MCHC (31.0-37.0) g/dL RDW (11.5-15.5) % Plt Count (150-450) k/uL MPV Neutrophils % % Lymphocytes % % Monocytes % % Eosinophils % % Basophils % % Neutrophils # (1.3-7.7) k/uL Lymphocytes # (1.0-4.8) k/uL Monocytes # (0-1.0) k/uL Eosinophils # (0-0.7) k/uL Basophils # (0-0.2) k/uL PT (9.0-12.0) sec INR (<1.2) APTT (22.0-30.0) sec Sodium (137-145) mmol/L Potassium (3.5-5.1) mmol/L Chloride (98-107) mmol/L Carbon Dioxide (22-30) mmol/L Anion Gap mmol/L BUN (9-20) mg/dL Creatinine (0.66-1.25) mg/dL Est GFR (CKD-EPI)AfAm (>60 ml/min/1.73 sqM) Est GFR (CKD-EPI)NonAf (>60 ml/min/1.73 sqM) Glucose (74-99) mg/dL Plasma Lactic Acid Wilfrid 1.8 (0.7-2.0) mmol/L Calcium (8.4-10.2) mg/dL Magnesium (1.6-2.3) mg/dL Total Bilirubin (0.2-1.3) mg/dL AST (17-59) U/L ALT (4-49) U/L Alkaline Phosphatase (38-126) U/L Troponin I 0.029 (0.000-0.034) ng/mL NT-Pro-B Natriuret Pep 270 pg/mL Total Protein (6.3-8.2) g/dL Albumin (3.5-5.0) g/dL Coronavirus (PCR) (Not Detectd) 06/20/21 Range/Units 07:28 WBC (3.8-10.6) k/uL RBC (4.30-5.90) m/uL Hgb (13.0-17.5) gm/dL Hct (39.0-53.0) % MCV (80.0-100.0) fL MCH (25.0-35.0) pg MCHC (31.0-37.0) g/dL RDW (11.5-15.5) % Plt Count (150-450) k/uL MPV Neutrophils % % Lymphocytes % % Monocytes % % Eosinophils % % Basophils % % Neutrophils # (1.3-7.7) k/uL Lymphocytes # (1.0-4.8) k/uL Monocytes # (0-1.0) k/uL Eosinophils # (0-0.7) k/uL Basophils # (0-0.2) k/uL PT (9.0-12.0) sec INR (<1.2) APTT (22.0-30.0) sec Sodium (137-145) mmol/L Potassium (3.5-5.1) mmol/L Chloride (98-107) mmol/L Carbon Dioxide (22-30) mmol/L Anion Gap mmol/L BUN (9-20) mg/dL Creatinine (0.66-1.25) mg/dL Est GFR (CKD-EPI)AfAm (>60 ml/min/1.73 sqM) Est GFR (CKD-EPI)NonAf (>60 ml/min/1.73 sqM) Glucose (74-99) mg/dL Plasma Lactic Acid Wilfrid (0.7-2.0) mmol/L Calcium (8.4-10.2) mg/dL Magnesium (1.6-2.3) mg/dL Total Bilirubin (0.2-1.3) mg/dL AST (17-59) U/L ALT (4-49) U/L Alkaline Phosphatase (38-126) U/L Troponin I (0.000-0.034) ng/mL NT-Pro-B Natriuret Pep pg/mL Total Protein (6.3-8.2) g/dL Albumin (3.5-5.0) g/dL Coronavirus (PCR) Not Detected (Not Detectd) Disposition Clinical Impression: Acute exacerbation of chronic obstructive airways disease, Status post mitral valve repair, Pneumonia Disposition: ADMITTED IP TO THIS HOSP Condition: Stable Is patient prescribed a controlled substance at d/c from ED?: No Referrals: Chandler Valderrama MD [Primary Care Provider] - 1-2 days Decision to Admit Reason: Admit from EC Decision Date: 06/20/21 Decision Time: 09:12
[2021-06-20 07:53] LABS: INR 2.1 (<1.2); Partial Thromboplastin Time 32.4 sec (22.0-30.0); Prothrombin Time 20.7 sec (9.0-12.0)
--- NOTE | 2021-06-20 08:12 | XR ---
EXAMINATION TYPE: XR chest 2V DATE OF EXAM: 06/20/2021 COMPARISON: Chest x-ray 11/08/2020, CT 06/05/2019 HISTORY: Difficulty breathing, shortness of breath TECHNIQUE: Frontal and lateral views of the chest are obtained. FINDINGS: Patient is post median sternotomy and left atrial appendage clip placement. Cardiac medias tinal silhouette shows a similar appearance accounting for differences in aeration, exam appears expi ratory. There is no evident pneumothorax or pleural effusion. Patchy basilar density is again noted a nd may represent chronic postop change. There is increased AP diameter of the chest with relative fla ttening the hemidiaphragms possibly indicative of underlying COPD. Fractured median sternal wire pres ent inferiorly. There is some questionable peripheral groundglass opacity seen within the lungs. Inte rstitium is mildly increased. IMPRESSION: Correlate to exclude pneumonia, there is underlying chronic interstitial change. Follow- up as indicated.
[2021-06-20 08:24] LABS: ALT 65 U/L (4-49); AST 93 U/L (17-59); African American GFR (CKD) >90 (>60 ml/min/1.73 sqM); Albumin 4.4 g/dL (3.5-5.0); Alkaline Phosphatase 164 U/L (38-126); Anion Gap 10 mmol/L; Blood Urea Nitrogen 17 mg/dL (9-20); Calcium 9.6 mg/dL (8.4-10.2); Carbon Dioxide 25 mmol/L (22-30); Chloride 107 mmol/L (98-107); Glucose 136 mg/dL (74-99); Magnesium 1.6 mg/dL (1.6-2.3); Non-African American GFR(CKD) >90 (>60 ml/min/1.73 sqM); Potassium 4.2 mmol/L (3.5-5.1); Sodium 142 mmol/L (137-145); Total Bilirubin 0.8 mg/dL (0.2-1.3); Total Protein 7.3 g/dL (6.3-8.2)
[2021-06-20] MEDS ORDERED: AZITHROMYCIN 500 MG in SODIUM CHLORIDE 0.9% 250 ML IVPB STA (09:02)
[2021-06-20] MEDS ORDERED: cefTRIAXone IN SWFI 1,000 MG/10 ML SYRINGE IVP STA (09:02)
[2021-06-20] MEDS ORDERED: IPRATROPIUM-ALBUTEROL 3 ML NEB INHALATION PRN (09:05)
[2021-06-20] MEDS ORDERED: MORPHINE SULFATE 4 MG/ML SYRINGE IVP STA (09:22)
[2021-06-20] MEDS: methylPREDNISolone SOD SUCCI 125 MG/2 ML VIAL IV SCH ×3 (13:50→23:36)
--- NOTE | 2021-06-20 13:57 | P.CRDCN ---
History of Present Illness History of present illness: HISTORY OF PRESENT ILLNESS: This is a 56-year-old male with a past medical history significant for coronary artery disease with previous PCI 3, mitral valve replacement, Maze procedure, and CABG 2 (right internal mammary artery to RCA and saphenous vein graft of the aorta to the second obtuse marginal artery) in 2018, paroxysmal atrial fibrillation, hyperlipidemia, hypertension, COPD, obstructive sleep apnea, and GERD. Patient follows in the office with Dr. Valles. We have been asked to see the patient in consultation for dyspnea. Patient examined in the emergency department. Patient presents to the emergency department with an episode of acute onset shortness of breath. He states he was taking a shower and after his shower had acute onset shortness of breath and diaphoresis. He denies any chest pain, nausea, vomiting, palpitations, lightheadedness, or dizziness. He does endorse a headache. He denies fever or chills at home. He states this is similar when he had his stents placed before however he does not have chest pain this time. He is a former smoker, quit 3 years ago. On admission, he states he received nebulizer treatments with improvement. DIAGNOSTICS: EKG reveals sinus rhythm with 1st degree AV block. Prior EKG with similar findings. Chest xray increased AP diameter, flattening hemidiaphragms concerning for COPD, patchy bilateral opacities, some questionable groundglass opacity seen within the lungs. Laboratory data: CBC unremarkable, INR 2.1, troponin negative 1, proBNP 270, COVID-19 PCR negative, sodium 142, potassium 4.2, BUN 17, serum creatinine 0.6 magnesium 1.6 Lexiscan stress test outpatient revealed no significant ischemia, small partially reversible inferolateral defect of very mild intensity. Echocardiogram 06/07/2021 in the office revealed EF 55%, stable bioprosthetic mitral valve. No significant regurgitation, moderate pulmonary hypertension with an RVSP 47mmHg Cardiac catheterization 12/07/2020- probable total occlusive of SVG to LCx visualized on aortogram. BINTA to RCA patent, LAD and branches have no significant disease distal circumflex occluded picayune RCA has total occlusion in mid portion, slightly elevated filling pressures and no gradient. Current home cardiac medications include aspirin 1 mg daily, atorvastatin 80 mg daily, carvedilol 12.5 mg twice a day, Lasix 40 mg daily, losartan 25 mg nightly, warfarin 5mg MOWEFRSA, and warfarin 7.5mg SUTUTH. REVIEW OF SYSTEMS: At the time of my exam: CONSTITUTIONAL: Denies fever or chills. +diaphoresis HEENT: Denies blurred vision, vision changes, or eye pain. Denies hemoptysis CARDIOVASCULAR: Denies chest pain, orthopnea, PND or palpitations RESPIRATORY: +shortness of breath. GASTROINTESTINAL: Denies abdominal pain. Denies nausea or vomiting. HEMATOLOGIC: Denies bleeding disorders. GENITOURINARY: Denies any blood in urine. SKIN: Denies pruitis. Denies rash. PHYSICAL EXAM: VITAL SIGNS: Reviewed. GENERAL: Well-developed in no acute distress. HEENT: Head is normocephalic. Pupils are equal, round. Sclerae anicteric. Mucous membranes of the mouth are moist. Neck supple. No JVD or thyromegaly LUNGS: Respirations even and unlabored. Lungs essentially clear to auscultation bilaterally. Some mild wheezing in the right lower lobe. HEART: Regular rate and rhythm. S1 and S2 heard. ABDOMEN: Soft. Nondistended. Nontender. EXTREMITIES: Normal range of motion. No clubbing or cyanosis. Peripheral pulses intact. No lower extremity edema NEUROLOGIC: Awake and alert. Oriented x 3. ASSESSMENT: Dyspnea Coronary artery disease with previous PCI 3 History of mechanical mitral valve replacement, maze procedure, and CABG 2: right internal mammary artery to RCA and saphenous vein graft of the aorta to the second obtuse marginal artery, 2018 - on Coumadin Paroxysmal atrial fibrillation Hyperlipidemia Hypertension Obstructive sleep apnea PLAN: -Dyspnea does not appear to be cardiac etiology at this time, patient with recent Lexiscan stress test in June 2021 and cardiac catheterization in November 2020, however, we will repeat another troponin' -Continue cardiac telemetry -Daily PT/INR -Continue home cardiac medications -Recommend pulmonary consult -Further recommendations based on clinical course Nurse practitioner note has been reviewed by physician. Signing provider agrees with the documented findings, assessment, and plan of care. Past Medical History Past Medical History: Atrial Fibrillation, Coronary Artery Disease (CAD), Heart Failure, GERD/Reflux, Hyperlipidemia, Hypertension, Pneumonia, [employer] ea/CPAP/BIPAP Additional Past Medical History / Comment(s): ALEISHA with Cpap use History of Any Multi-Drug Resistant Organisms: None Reported Past Surgical History: Appendectomy, Heart Catheterization With Stent Additional Past Surgical History / Comment(s): 2018 PCI with stent, 2018 CABG 2 vessel with mitral valve replacement, cardioversion x 3, DYLAN x2, EGD, colonoscopy, stress test done Past Anesthesia/Blood Transfusion Reactions: No Reported Reaction Date of Last Stent Placement:: 01/22/18 Past Psychological History: No Psychological Hx Reported Smoking Status: Former smoker Past Alcohol Use History: None Reported Past Drug Use History: None Reported - Past Family History Father Family Medical History: Congestive Heart Failure (CHF) Additional Family Medical History / Comment(s): Father of CHF at the age of 68yrs. Mother Family Medical History: No Reported History Additional Family Medical History / Comment(s): Mother at the age of 62 or 63 yrs from myasthenia gravis. Medications and Allergies Home Medications Medication Instructions Recorded Confirmed Type Multivitamin [Men's Multi-Vitamin] 1 tab PO DAILY 01/22/14 06/20/21 History Umeclidinium Brm/Vilanterol Tr 1 puff INHALATION RT-DAILY 07/04/18 06/20/21 History [Anoro Ellipta 62.5-25 Mcg INH] Aspirin 81 mg PO DAILY #30 chew 08/24/18 06/20/21 Rx Atorvastatin [Lipitor] 80 mg PO HS #30 tab 08/24/18 06/20/21 Rx Furosemide [Lasix] 40 mg PO DAILY 05/20/19 06/20/21 History Losartan [Cozaar] 75 mg PO HS 05/20/19 06/20/21 History Magnesium Oxide [Mag-Ox] 500 mg PO HS 05/20/19 06/20/21 History Sertraline [Zoloft] 50 mg PO DAILY 05/20/19 06/20/21 History carvediloL [Coreg] 12.5 mg PO BID 05/20/19 06/20/21 History Pantoprazole [Protonix] 40 mg PO DAILY 11/08/20 06/20/21 History Warfarin [Coumadin] 5 mg PO [id number]@209911/08/20 06/20/21 History Warfarin [Coumadin] 7.5 mg PO SUTUTH@209911/08/20 06/20/21 History Albuterol Sulfate [Proair Hfa] 2 puff INHALATION RT-QID PRN 06/20/21 06/20/21 History Inulin/Chromium Picolinate [Fiber 1 tab PO DAILY 06/20/21 06/20/21 History Gummies Chew] Mv-Mn/C/Glutamin/Lysin/[id number] 1 tab PO DAILY 06/20/21 06/20/21 History [Airborne Gummies] [place]-3 Fatty Acids/Fish Oil 1 cap PO DAILY 06/20/21 06/20/21 History [[place]-3 Fish Oil 1,200 mg Sfgl] Allergies Allergy/AdvReac Type Severity Reaction Status Date / Time Penicillins Allergy Unknown Verified 06/20/21 09:39 Childhood Physical Exam Vitals: Vital Signs Temp Pulse Resp BP Pulse Ox 06/20/21 11:47 98.9 F 73 20 142/80 96 06/20/21 09:03 75 20 164/92 96 06/20/21 08:24 76 06/20/21 08:04 77 20 06/20/21 07:06 98.6 F 89 23 180/96 95 Intake and Output 06/19/21 06/20/21 06/20/21 22:59 06:59 14:59 Other: Weight 113.398 kg Results 06/20/21 07:28 06/20/21 07:28 Cardiac Enzymes 06/20/21 06/20/21 Range/Units 07:28 07:28 AST 93 H (17-59) U/L Troponin I 0.029 (0.000-0.034) ng/mL Coagulation 06/20/21 Range/Units 07:28 PT 20.7 H (9.0-12.0) sec APTT 32.4 H (22.0-30.0) sec CBC 06/20/21 Range/Units 07:28 WBC 9.8 (3.8-10.6) k/uL RBC 4.74 (4.30-5.90) m/uL Hgb 14.8 (13.0-17.5) gm/dL Hct 43.5 (39.0-53.0) % Plt Count 220 (150-450) k/uL Comprehensive Metabolic Panel 06/20/21 Range/Units 07:28 Sodium 142 (137-145) mmol/L Potassium 4.2 (3.5-5.1) mmol/L Chloride 107 (98-107) mmol/L Carbon Dioxide 25 (22-30) mmol/L BUN 17 (9-20) mg/dL Creatinine 0.68 (0.66-1.25) mg/dL Glucose 136 H (74-99) mg/dL Calcium 9.6 (8.4-10.2) mg/dL AST 93 H (17-59) U/L ALT 65 H (4-49) U/L Alkaline Phosphatase 164 H (38-126) U/L Total Protein 7.3 (6.3-8.2) g/dL Albumin 4.4 (3.5-5.0) g/dL Current Medications Generic Name Dose Route Start Last Admin Trade Name Freq PRN Reason Stop Dose Admin Albuterol/Ipratropium 3 ml 06/20/21 09:05 Ipratropium-Albuterol 3 Ml Neb INHALATION RT-Q4H PRN Shortness Of Breath Or Wheezing Albuterol/Ipratropium 3 ml 06/20/21 12:00 Ipratropium-Albuterol 3 Ml Neb INHALATION RT-QID SAMANTHA Methylprednisolone Sodium Succinate 60 mg 06/20/21 12:00 Methylprednisolone Sod Succi 125 Mg/2 Ml Vial IV Q6HR SAMANTHA Intake and Output 06/19/21 06/20/21 06/20/21 22:59 06:59 14:59 Other: Weight 113.398 kg Patient Weight 06/21/21 06:59 Weight 113.398 kg 06/20/21 07:28 06/20/21 07:28
[2021-06-20] MEDS: IPRATROPIUM-ALBUTEROL 3 ML NEB INHALATION SCH ×3 (13:59→19:14)
[2021-06-20] MEDS: ACETAMINOPHEN TAB 500 MG TAB PO PRN ×2 (14:19→22:23)
--- NOTE | 2021-06-20 16:46 | P.CNPUL ---
History of Present Illness Consult date: 06/20/21 Requesting physician: Delmar Domínguez Reason for consult: dyspnea, cough, COPD Chief complaint: Dyspnea, orthopnea, cough History of present illness: 56-year-old patient with past history of COPD, obstructive sleep apnea on CPAP, history of paroxysmal atrial fibrillation, currently in sinus rhythm, history of mechanical mitral valve replacement, Maze procedure and two-vessel coronary lashonda ry bypass grafting in 2018, patient is on Coumadin for chronic anticoagulation, hypertension, hyperlipidemia, former smoker patient quit smoking 3 years ago. FEV1 of 66% of predicted, consistent with stage II COPD. Patient follows with Dr. Garcia from the pulmonary clinic, on 06/20/2020 patient came in for evaluation of worsening shortness of breath, cough. Denied any fever, chest pain, denied any lower extremity swelling or pain. He's been taking his Coumadin, on admission his INR is 2.1. Chest x-ray on admission shows underlying chronic interstitial changes. Post median sternotomy and left atrial appendage clipping placement. COVID-19 PCR was negative. he has been afebrile while in hospital. EKG showed sinus rhythm with sinus arrhythmia and first- degree AV block. Admission blood work showed a white blood cell count of 9.8, hemoglobin of 14.8, sodium is 142, potassium is 4.2, CO2 is 25, BUN of 17 creatinine 0.68, plasma lactic acid was 1.8, AST was 93, ALT was 65, alkaline phosphatase was 164, 2 sets of troponins were 0.0-9, and 0.019, proBNP was 270. Patient had a heart catheterization on 11/10/2020 showing probable total occlusion of the vein graft to the circumflex, the BINTA to the RCA was patent, LAD and branches have no significant disease, distal circumflex was occluded, [place] RCA had mild occlusion, filling pressures were acceptable, without a gradient. Recent echocardiogram from November 2020 showed EF of 50-55%, moderately enlarged right ventricle, mechanical [place]. Elian mitral valve, mild tricuspid regurg, no evidence of pulmonary hypertension. In the emergency department patient received a breathing treatment, he was started on azithromycin and Rocep hin, IV steroids, and he is feeling better. Review of Systems All systems: negative Constitutional: Denies chills, Denies fever Eyes: denies blurred vision, denies pain Ears, nose, mouth and throat: Denies headache, Denies sore throat Cardiovascular: Denies chest pain, Denies shortness of breath Respiratory: Reports dyspnea, Denies cough Gastrointestinal: Denies abdominal pain, Denies diarrhea, Denies nausea, Denies vomiting Musculoskeletal: Denies myalgias Integumentary: Denies pruritus, Denies rash Neurological: Denies numbness, Denies weakness Psychiatric: Denies anxiety, Denies depression Endocrine: Denies fatigue, Denies weight change Past Medical History Past Medical History: Atrial Fibrillation, Coronary Artery Disease (CAD), Heart Failure, GERD/Reflux, Hyperlipidemia, Hypertension, Pneumonia, Sleep Apnea/CPAP/BIPAP Additional Past Medical History / Comment(s): ALEISHA with Cpap use History of Any Multi-Drug Resistant Organisms: None Reported Past Surgical History: Appendectomy, Heart Catheterization With Stent Additional Past Surgical History / Comment(s): 2017 PCI with stent, 2017 CABG 2 vessel with mitral valve replacement, cardioversion x 3, DYLAN x2, EGD, colonoscopy, stress test done Past Anesthesia/Blood Transfusion Reactions: No Reported Reaction Date of Last Stent Placement:: 01/22/18 Past Psychological History: No Psychological Hx Reported Smoking Status: Former smoker Past Alcohol Use History: None Reported Past Drug Use History: None Reported - Past Family History Father Family Medical History: Congestive Heart Failure (CHF) Additional Family Medical History / Comment(s): Father of CHF at the age of 68yrs. Mother Family Medical History: No Reported History Additional Family Medical History / Comment(s): Mother at the age of 62 or 63 yrs from myasthenia gravis. Medications and Allergies Home Medications Medication Instructions Recorded Confirmed Type Multivitamin [Men's Multi-Vitamin] 1 tab PO DAILY 01/22/14 06/20/21 History Umeclidinium Brm/Vilanterol Tr 1 puff INHALATION RT-DAILY 07/04/18 06/20/21 History [Anoro Ellipta 62.5-25 Mcg INH] Aspirin 81 mg PO DAILY #30 chew 08/24/18 06/20/21 Rx Atorvastatin [Lipitor] 80 mg PO HS #30 tab 08/24/18 06/20/21 Rx Furosemide [Lasix] 40 mg PO DAILY 05/20/19 06/20/21 History Losartan [Cozaar] 75 mg PO HS 05/20/19 06/20/21 History Magnesium Oxide [Mag-Ox] 500 mg PO HS 05/20/19 06/20/21 History Sertraline [Zoloft] 50 mg PO DAILY 05/20/19 06/20/21 History carvediloL [Coreg] 12.5 mg PO BID 05/20/19 06/20/21 History Pantoprazole [Protonix] 40 mg PO DAILY 11/08/20 06/20/21 History Warfarin [Coumadin] 5 mg PO MOWEFRSA@209911/08/20 06/20/21 History Warfarin [Coumadin] 7.5 mg PO SUTUTH@2100 11/08/20 06/20/21 History Albuterol Sulfate [Proair Hfa] 2 puff INHALATION RT-QID PRN 06/20/21 06/20/21 History Inulin/Chromium Picolinate [Fiber 1 tab PO DAILY 06/20/21 06/20/21 History Gummies Chew] Mv-Mn/C/Glutamin/Lysin/[id number] 1 tab PO DAILY 06/20/21 06/20/21 History [Airborne Gummies] [place]-3 Fatty Acids/Fish Oil 1 cap PO DAILY 06/20/21 06/20/21 History [[place]-3 Fish Oil 1,200 mg Sfgl] Allergies Allergy/AdvReac Type Severity Reaction Status Date / Time Penicillins Allergy Unknown Verified 06/20/21 09:39 Childhood Physical Exam Vitals: Vital Signs Temp Pulse Resp BP Pulse Ox 06/20/21 15:29 75 06/20/21 15:17 74 06/20/21 14:11 75 06/20/21 13:59 75 06/20/21 13:52 74 20 157/92 97 06/20/21 11:47 98.9 F 73 20 142/80 96 06/20/21 09:03 75 20 164/92 96 06/20/21 08:24 76 06/20/21 08:04 77 20 06/20/21 07:06 98.6 F 89 23 180/96 95 Intake and Output 06/20/21 06/20/21 06/20/21 06:59 14:59 22:59 Other: Weight 113.398 kg GENERAL EXAM: Alert, very pleasant, 56-year-old white male on 2 l/min pulse ox of 97% comfortable in no apparent distress. HEAD: Normocephalic/atraumatic. EYES: Normal reaction of pupils, equal size. Conjunctiva pink, sclera white. NOSE: Clear with pink turbinates. THROAT: No erythema or exudates. NECK: No masses, no JVD, no thyroid enlargement, no adenopathy. CHEST: No chest wall deformity. Symmetrical expansion. LUNGS: Equal air entry with diminished breath sounds, with mild wheezing and crackles CVS: Regular rate and rhythm, normal S1 and S2, no gallops, no murmurs, no rubs ABDOMEN: Soft, nontender. No hepatosplenomegaly, normal bowel sounds, no guarding or rigidity. EXTREMITIES: No clubbing, no edema, no cyanosis, 2+ pulses and upper and lower extremities. MUSCULOSKELETAL: Muscle strength and tone normal. SPINE: No scoliosis or deformity SKIN: No rashes CENTRAL NERVOUS SYSTEM: Alert and oriented -3. No focal deficits, tone is normal in all 4 extremities. PSYCHIATRIC: Alert and oriented -3. Appropriate affect. Intact judgment and insight. Results - Laboratory Findings CBC and BMP: 06/20/21 07:28 06/20/21 07:28 PT/INR, D-dimer PT 20.7 sec (9.0-12.0) H 06/20/21 07:28 INR 2.1 (<1.2) H 06/20/21 07:28 Abnormal lab findings: Abnormal Labs 06/20/21 06/20/21 07:28 07:28 PT 20.7 H INR 2.1 H APTT 32.4 H Glucose 136 H AST 93 H ALT 65 H Alkaline Phosphatase 164 H - Diagnostic Findings Chest x-ray: report reviewed, image reviewed Assessment and Plan Plan: Assessment: #1. Acute exacerbation of COPD, chest x-ray showed patchy basilar densities, and mildly increased interstitium, rule out possibility of CHF versus interstit ial pneumonia, interstitial pneumonitis seems to be less likely, patient nevertheless is covered with azithromycin and Rocephin, we will send pro- calcitonin level. #2. Coronary artery disease, status post two-vessel coronary artery bypass grafting, mechanical mitral valve replacement and maze procedure in 2018, on Coumadin #3. History of paroxysmal atrial fibrillation, currently in sinus mechanism #4. Hypertension #5. Hyperlipidemia #6. COPD not oxygen dependent in the sling, with baseline FEV1 of 66% predicted #7. Obstructive sleep apnea on CPAP #8. GERD/reflux #9. Former smoker remission for the past 3 years Plan: Continue current medical treatment Send pro-calcitonin level Continue with empiric antibiotic coverage COVID-19 PCR was negative Continue breathing treatments Continue nebulized bronchodilators and steroids We'll continue to follow I performed a history & physical examination of the patient and discussed their management with my nurse practitioner, Shonda Dunlap. I reviewed the nurse practitioner's note and agree with the documented findings and plan of care. Lung sounds are positive for diffuse wheezes throughout the lung santamaria. The findings and the impression was discussed with the patient. I attest to the documentation by the nurse practitioner. Time with Patient: Greater than 30
[2021-06-20] MEDS ORDERED: WARFARIN 5 MG TAB PO SCH (18:00)
[2021-06-20] MEDS: carvediloL 12.5 MG TAB PO SCH (18:36)
[2021-06-20] MEDS: WARFARIN 7.5 MG TAB PO SCH (18:36)
[2021-06-20] MEDS: ATORVASTATIN 80 MG TAB PO SCH (22:23)
[2021-06-20] MEDS: LOSARTAN 25 MG TAB PO SCH (22:23)
[2021-06-21] MEDS: ACETAMINOPHEN TAB 500 MG TAB PO PRN (04:14)
[2021-06-21 04:35] LABS: INR 2.5 (<1.2); Prothrombin Time 23.9 sec (9.0-12.0)
[2021-06-21] MEDS: methylPREDNISolone SOD SUCCI 125 MG/2 ML VIAL IV SCH ×3 (05:49→18:10)
[2021-06-21 07:22] LABS: Basophils % (A) 0 %; Eosinophils % (A) 0 %; HCT 44.4 % (39.0-53.0); HGB 14.4 gm/dL (13.0-17.5); Lymphocytes # (A) 0.9 k/uL (1.0-4.8); Lymphocytes % (A) 9 %; MCH 30.4 pg (25.0-35.0); MCHC 32.4 g/dL (31.0-37.0); Monocytes # (A) 0.1 k/uL (0-1.0); Monocytes % (A) 1 %; Neutrophils # (A) 8.4 k/uL (1.3-7.7); Neutrophils % (A) 89 %; Platelet Count 217 k/uL (150-450); RBC 4.72 m/uL (4.30-5.90); RDW 13.1 % (11.5-15.5); WBC 9.4 k/uL (3.8-10.6)
[2021-06-21 07:26] LABS: ALT 49 U/L (4-49); AST 54 U/L (17-59); African American GFR (CKD) >90 (>60 ml/min/1.73 sqM); Albumin 4.3 g/dL (3.5-5.0); Albumin/Globulin Ratio 1.5; Alkaline Phosphatase 103 U/L (38-126); Anion Gap 10 mmol/L; Blood Urea Nitrogen 13 mg/dL (9-20); Calcium 9.4 mg/dL (8.4-10.2); Carbon Dioxide 25 mmol/L (22-30); Chloride 101 mmol/L (98-107); Globulin 2.8 g/dL; Glucose 149 mg/dL (74-99); Non-African American GFR(CKD) >90 (>60 ml/min/1.73 sqM); Potassium 4.1 mmol/L (3.5-5.1); Sodium 136 mmol/L (137-145); Total Bilirubin 1.3 mg/dL (0.2-1.3); Total Protein 7.1 g/dL (6.3-8.2)
[2021-06-21] MEDS ORDERED: NON FORMULARY DRUG (Umeclidinium Brm/Vilanterol Tr [Anoro Ellipta 62.5-25 Mcg Inh] 1 EACH INHALATION SCH (08:00)
[2021-06-21] MEDS: IPRATROPIUM-ALBUTEROL 3 ML NEB INHALATION SCH ×4 (08:07→21:02)
--- NOTE | 2021-06-21 08:13 | P.HPIM ---
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 The patient was admitted essentially because of exacerbation of COPD. The x-ray did show question element of infiltrate. He is placed on empiric antibiotic treatment. He is now seen with pulmonology. No voiding difficulties. No significant nausea, vo miting or diarrhea. No overt chest anginal chest pressure. Review of Systems Constitutional: Denies chills, Denies fever Eyes: denies blurred vision, denies pain Ears, nose, mouth and throat: Denies headache, Denies sore throat Respiratory: Reports dyspnea, Denies home oxygen, Denies pain on inspiration, Denies snoring Gastrointestinal: Denies abdominal pain, Denies diarrhea, Denies nausea, Denies vomiting Musculoskeletal: Denies myalgias Integumentary: Reports as per HPI Neurological: Denies numbness, Denies weakness Past Medical History Past Medical History: Atrial Fibrillation, Coronary Artery Disease (CAD), Heart Failure, GERD/Reflux, Hyperlipidemia, Hypertension, Pneumonia, Sleep Apnea/CPAP/BIPAP Additional Past Medical History / Comment(s): ALEISHA with Cpap use History of Any Multi-Drug Resistant Organisms: None Reported Past Surgical History: Appendectomy, Heart Catheterization With Stent Additional Past Surgical History / Comment(s): 2018 PCI with stent, 2018 CABG 2 vessel with mitral valve replacement, cardioversion x 3, DYLAN x2, EGD, colonoscopy, stress test done Past Anesthesia/Blood Transfusion Reactions: No Reported Reaction Date of Last Stent Placement:: 01/22/18 Past Psychological History: No Psychological Hx Reported Smoking Status: Former smoker Past Alcohol Use History: None Reported Past Drug Use History: None Reported - Past Family History Father Family Medical History: Congestive Heart Failure (CHF) Additional Family Medical History / Comment(s): Father of CHF at the age of 68yrs. Mother Family Medical History: No Reported History Additional Family Medical History / Comment(s): Mother at the age of 62 or 63 yrs from myasthenia gravis. Medications and Allergies Home Medications Medication Instructions Recorded Confirmed Type Multivitamin [Men's Multi-Vitamin] 1 tab PO DAILY 01/22/14 06/20/21 History Umeclidinium Brm/Vilanterol Tr 1 puff INHALATION RT-DAILY 07/04/18 06/20/21 History [Anoro Ellipta 62.5-25 Mcg INH] Aspirin 81 mg PO DAILY #30 chew 08/24/18 06/20/21 Rx Atorvastatin [Lipitor] 80 mg PO HS #30 tab 08/24/18 06/20/21 Rx Furosemide [Lasix] 40 mg PO DAILY 05/20/19 06/20/21 History Losartan [Cozaar] 75 mg PO HS 05/20/19 06/20/21 History Magnesium Oxide [Mag-Ox] 500 mg PO HS 05/20/19 06/20/21 History Sertraline [Zoloft] 50 mg PO DAILY 05/20/19 06/20/21 History carvediloL [Coreg] 12.5 mg PO BID 05/20/19 06/20/21 History Pantoprazole [Protonix] 40 mg PO DAILY 11/08/20 06/20/21 History Warfarin [Coumadin] 5 mg PO MOWEFRSA@209911/08/20 06/20/21 History Warfarin [Coumadin] 7.5 mg PO SUTUTH@2100 11/08/20 06/20/21 History Albuterol Sulfate [Proair Hfa] 2 puff INHALATION RT-QID PRN 06/20/21 06/20/21 H istory Inulin/Chromium Picolinate [Fiber 1 tab PO DAILY 06/20/21 06/20/21 History Gummies Chew] Mv-Mn/C/Glutamin/Lysin/[id number] 1 tab PO DAILY 06/20/21 06/20/21 History [Airborne Gummies] [place]-3 Fatty Acids/Fish Oil 1 cap PO DAILY 06/20/21 06/20/21 History [[place]-3 Fish Oil 1,200 mg Sfgl] Allergies Allergy/AdvReac Type Severity Reaction Status Date / Time Penicillins Allergy Unknown Verified 06/20/21 09:39 Childhood Physical Exam Vitals: Vital Signs Temp Pulse Pulse Resp BP BP Pulse Ox 06/21/21 08:02 78 18 95 06/21/21 02:02 97.7 F 75 20 159/71 96 06/20/21 20:00 97.6 F 82 20 163/91 95 06/20/21 19:23 75 06/20/21 19:15 73 06/20/21 18:41 88 20 173/90 96 06/20/21 16:35 75 22 161/92 96 06/20/21 15:29 75 06/20/21 15:17 74 06/20/21 14:11 75 06/20/21 13:59 75 06/20/21 13:52 74 20 157/92 97 06/20/21 11:47 98.9 F 73 20 142/80 96 06/20/21 09:03 75 20 164/92 96 06/20/21 08:24 76 - Constitutional General appearance: no acute distress - EENT Eyes: EOMI - Neck Neck: no lymphadenopathy - Respiratory Respiratory: bilateral: diminished - Cardiovascular Rhythm: irregularly irregular Heart sounds: normal: S1, S2 Abnormal Heart Sounds: no S3 Gallop - Gastrointestinal General gastrointestinal: soft, no tenderness - Psychiatric Psychiatric: A&O x's 3 Results CBC & Chem 7: 06/21/21 03:44 06/21/21 03:44 Labs: Abnormal Lab Results - Last 24 Hours (Table) 06/20/21 06/21/21 06/21/21 Range/Units 07:28 03:44 03:44 Neutrophils # 8.4 H (1.3-7.7) k/uL Lymphocytes # 0.9 L (1.0-4.8) k/uL PT 23.9 H (9.0-12.0) sec INR 2.5 H (<1.2) Sodium (137-145) mmol/L Creatinine (0.66-1.25) mg/dL Glucose 136 H (74-99) mg/dL AST 93 H (17-59) U/L ALT 65 H (4-49) U/L Alkaline Phosphatase 164 H (38-126) U/L 06/21/21 Range/Units 03:44 Neutrophils # (1.3-7.7) k/uL Lymphocytes # (1.0-4.8) k/uL PT (9.0-12.0) sec INR (<1.2) Sodium 136 L (137-145) mmol/L Creatinine 0.54 L (0.66-1.25) mg/dL Glucose 149 H (74-99) mg/dL AST (17-59) U/L ALT (4-49) U/L Alkaline Phosphatase (38-126) U/L Assessment and Plan (1) Acute exacerbation of chronic obstructive airways disease Current Visit: Yes Status: Acute Code(s): J44.1 - CHRONIC OBSTRUCTIVE PULMONARY DISEASE W (ACUTE) EXACERBATION SNOMED Code(s): 581532172 (2) Pneumonia Current Visit: Yes Status: Acute Code(s): J18.9 - PNEUMONIA, UNSPECIFIED ORGANISM SNOMED Code(s): 984009096 (3) Atrial fibrillation Current Visit: No Status: Acute Code(s): I48.91 - UNSPECIFIED ATRIAL FIBRILLATION SNOMED Code(s): 43130884 (4) COPD (chronic obstructive pulmonary disease) Current Visit: No Status: Chronic Code(s): J44.9 - CHRONIC OBSTRUCTIVE PULMONARY DISEASE, UNSPECIFIED SNOMED Code(s): 90591013 (5) Hypertension Current Visit: No Status: Chronic Code(s): I10 - ESSENTIAL (PRIMARY) HYPERTE NSION SNOMED Code(s): 26372020 (6) Former smoker Current Visit: No Status: Resolved Code(s): Z87.891 - PERSONAL HISTORY OF NICOTINE DEPENDENCE SNOMED Code(s): 4887553 Plan: Reconcile medications. Adjust hypertensive medication. Appreciate pulmonology input. Check CBC and CMP in a.m. The patient is a full code at this time.
[2021-06-21] MEDS: FUROSEMIDE 40 MG TAB PO SCH (08:18)
[2021-06-21] MEDS: MULTIVITAMINS, THERA 1 EACH TAB PO SCH (08:18)
[2021-06-21] MEDS: AZITHROMYCIN 500 MG TAB PO SCH (08:18)
[2021-06-21] MEDS: traMADol 50 MG TAB PO PRN ×2 (08:19→20:01)
[2021-06-21] MEDS: PANTOPRAZOLE 40 MG TABLET PO SCH (08:19)
[2021-06-21] MEDS: ASPIRIN 81 MG PO SCH (08:19)
[2021-06-21] MEDS: carvediloL 12.5 MG TAB PO SCH ×2 (08:19→18:10)
[2021-06-21] MEDS: SERTRALINE 50 MG TAB PO SCH (08:19)
[2021-06-21] MEDS: amLODIPine 5 MG TAB PO SCH (08:23)
[2021-06-21] MEDS ORDERED: [UNRECOGNIZED DRUG - OTHER] PO SCH (09:00)
[2021-06-21] MEDS ORDERED: INULIN PO SCH (09:00)
[2021-06-21] MEDS ORDERED: CHROMIUM PICOLINATE PO SCH (09:00)
[2021-06-21] MEDS ORDERED: NON FORMULARY DRUG (Omega-3 Fatty Acids/Fish Oil [Omega-3 Fish Oil 1,200 Mg Sfgl] 1 EACH C PO SCH (09:00)
--- NOTE | 2021-06-21 09:10 | P.PN ---
Subjective Progress Note Date: 06/21/21 Principal diagnosis: dyspnea, COVID 19 56-year-old patient with past history of COPD, obstructive sleep apnea on CPAP, history of paroxysmal atrial fibrillation, currently in sinus rhythm, history of mechanical mitral valve replacement, Maze procedure and two-vessel coronary art dereck bypass grafting in 2018, patient is on Coumadin for chronic anticoagulation, hypertension, hyperlipidemia, former smoker patient quit smoking 3 years ago. FEV1 of 66% of predicted, consistent with stage II COPD. Patient follows with Dr. Garcia from the pulmonary clinic, on 06/20/2020 patient came in for evaluation of worsening shortness of breath, cough. Denied any fever, chest pain, denied any lower extremity swelling or pain. He's been taking his Coumadin, on admission his INR is 2.1. Chest x-ray on admission shows underlying chronic interstitial changes. Post median sternotomy and left atrial appendage clipping placement. COVID-19 PCR was negative. he has been afebrile while in hospital. EKG showed sinus rhythm with sinus arrhythmia and first- degree AV block. Admission blood work showed a white blood cell count of 9.8, hemoglobin of 14.8, sodium is 142, potassium is 4.2, CO2 is 25, BUN of 17 creatinine 0.68, plasma lactic acid was 1.8, AST was 93, ALT was 65, alkaline phosphatase was 164, 2 sets of troponins were 0.0-9, and 0.019, proBNP was 270. Patient had a heart catheterization on 11/10/2020 showing probable total occlusion of the vein graft to the circumflex, the BINTA to the RCA was patent, LAD and branches have no significant disease, distal circumflex was occluded, [place] RCA had mild occlusion, filling pressures were acceptable, without a gradient. Recent echocardiogram from November 2020 showed EF of 50-55%, moderately enlarged right ventricle, mechanical [place]. Elian mitral valve, mild tricuspid regurg, no evidence of pulmonary hypertension. In the emergency department patient received a breathing treatment, he was started on azithromycin and Roce phin, IV steroids, and he is feeling better. On 06/21/2021 patient seen in follow-up in the emergency department, patient is still awaiting a bed for medical surgical floor. He states he is breathing a bit better, however he has not been up out of bed yet, and he does not know how his breathing will behave when he is up and moving around. Vital signs have been stable overnight, patient's symptoms of oxygen pulse ox is 95-96%, no fever or chills, lung sounds are negative for any wheezing or crackles or rhonchi. Only occasional cough, he remains on IV Solu-Medrol, he was started on azithromy ceci and Rocephin, he is on nebulized bronchodilators, his chest x-ray was showing chronic interstitial changes, pro-calcitonin level is pending, no evidence of leukocytosis on his blood work, white blood cell count is 9.4, hemoglobin is 14.4, today's INR is 2.5, electrolytes and renal profile were u nremarkable. Objective - Vital Signs Vital signs: Vital Signs Temp 97.7 F 06/21/21 02:02 Pulse 78 06/21/21 08:02 Resp 18 06/21/21 08:02 BP 159/71 06/21/21 02:02 Pulse Ox 95 06/21/21 08:02 Intake & Output 06/20/21 06/21/21 06/21/21 18:59 06:59 18:59 Weight 113.398 kg - Exam GENERAL EXAM: Alert, very pleasant, 56-year-old white male on 2 l/min pulse ox of 97% comfortable in no apparent distress. HEAD: Normocephalic/atraumatic. EYES: Normal reaction of pupils, equal size. Conjunctiva pink, sclera white. NOSE: Clear with pink turbinates. THROAT: No erythema or exudates. NECK: No masses, no JVD, no thyroid enlargement, no adenopathy. CHEST: No chest wall deformity. Symmetrical expansion. LUNGS: Equal air entry with diminished breath sounds, with mild wheezing and crackles CVS: Regular rate and rhythm, normal S1 and S2, no gallops, no murmurs, no rubs ABDOMEN: Soft, nontender. No hepatosplenomegaly, normal bowel sounds, no guarding or rigidity. EXTREMITIES: No clubbing, no edema, no cyanosis, 2+ pulses and upper and lower extremities. MUSCULOSKELETAL: Muscle strength and tone normal. SPINE: No scoliosis or deformity SKIN: No rashes CENTRAL NERVOUS SYSTEM: Alert and oriented -3. No focal deficits, tone is normal in all 4 extremities. PSYCHIATRIC: Alert and oriented -3. Appropriate affect. Intact judgment and insight. - Labs CBC & Chem 7: 06/21/21 03:44 06/21/21 03:44 Labs: Abnormal Lab Results - Last 24 Hours (Table) 06/21/21 06/21/21 06/21/21 Range/Units 03:44 03:44 03:44 Neutrophils # 8.4 H (1.3-7.7) k/uL Lymphocytes # 0.9 L (1.0-4.8) k/uL PT 23.9 H (9.0-12.0) sec INR 2.5 H (<1.2) Sodium 136 L (137-145) mmol/L Creatinine 0.54 L (0.66-1.25) mg/dL Glucose 149 H (74-99) mg/dL Assessment and Plan Plan: Assessment: #1. Acute exacerbation of COPD, chest x-ray showed patchy basilar densities, and mildly increased interstitium, rule out possibility of CHF versus interstitial pneumonia, interstitial pneumonitis seems to be less likely, patient nevertheless is covered with azithromycin and Rocephin, we will send pro-calcitonin level. #2. Coronary artery disease, status post two-vessel coronary artery bypass grafting, mechanical mitral valve replacement and maze procedure in 2018, on Coumadin #3. History of paroxysmal atrial fibrillation, currently in sinus mechanism #4. Hypertension #5. Hyperlipidemia #6. COPD not oxygen dependent in the sling, with baseline FEV1 of 66% predicted #7. Obstructive sleep apnea on CPAP #8. GERD/reflux #9. Former smoker remission for the past 3 years Plan: Continue current medical treatment Pro-calcitonin level is still pending Vital signs are stable, no fever or chills, no leukocytosis No clear evidence of pneumonia Continue with empiric antibiotic coverage, patient can be switched to oral angelique thromycin, may discontinue Rocephin COVID-19 PCR was negative Continue breathing treatments Continue nebulized bronchodilators and steroids Increase activity as tolerated, possible discharge home in the next 24 hours We'll continue to follow I performed a history & physical examination of the patient and discussed their management with my nurse practitioner, Shonda Dunlap. I reviewed the nurse practitioner's note and agree with the documented findings and plan of care. Lung sounds are positive for diffuse wheezes throughout the lung santamaria. The findings and the impression was discussed with the patient. I attest to the documentation by the nurse practitioner. Time with Patient: Less than 30
[2021-06-21] MEDS: FORMOTEROL FUMARATE 20 MCG/2 ML NEBU INHALATION SCH ×2 (11:36→21:02)
[2021-06-21] MEDS ORDERED: LORazepam 2 MG/ML INJ IV PRN ×3 (11:59)
--- NOTE | 2021-06-21 12:20 | P.PN ---
Subjective HISTORY OF PRESENT ILLNESS: This is a 56-year-old male with a past medical history significant for coronary artery disease with previous PCI 3, mitral valve replacement, Maze procedure, and CABG 2 (right internal mammary artery to RCA and saphenous vein graft of the aorta to the second obtuse marginal artery) in 2018, paroxysmal atrial fibrillation, hyperlipidemia, hypertension, COPD, obstructive sleep apnea, and GERD. Patient follows in the office with Dr. Valles. We have been asked to see the patient in consultation for dyspnea. Patient ex amined in the emergency department. Patient presents to the emergency department with an episode of acute onset shortness of breath. He states he was taking a shower and after his shower had acute onset shortness of breath and diaphoresis. He denies any chest pain, nausea, vomiting, palpitations, lightheadedness, or dizziness. He does endorse a headache. He denies fever or chills at home. He states this is similar when he had his stents placed before however he does not have chest pain this time. He is a former smoker, quit 3 years ago. On admission, he states he received nebulizer treatments with improvement. DIAGNOSTICS: EKG reveals sinus rhythm with 1st degree AV block. Prior EKG with similar findings. Chest xray increased AP diameter, flattening hemidiaphragms concerning for COPD, patchy bilateral opacities, some questionable groundglass opacity seen within the lungs. Laboratory data: CBC unremarkable, INR 2.1, troponin negative 1, proBNP 270, COVID-19 PCR negative, sodium 142, potassium 4.2, BUN 17, serum creatinine 0.6 magnesium 1.6 Lexiscan stress test outpatient revealed no significant ischemia, small partially reversible inferolateral defect of very mild intensity. Echocardiogram 06/07/2021 in the office revealed EF 55%, stable bioprosthetic mitral valve. No significant regurgitation, moderate pulmonary hypertension with an RVSP 47mmHg Cardiac catheterization 12/07/2020- probable total occlusive of SVG to LCx visualized on aortogram. BINTA to RCA patent, LAD and branches have no significant disease distal circumflex occluded nez perce RCA has total occlusion in mid portion, slightly elevated filling pressures and no gradient. Current home cardiac medications include aspirin 1 mg daily, atorvastatin 80 mg daily, carvedilol 12.5 mg twice a day, Lasix 40 mg daily, losartan 25 mg nightly, warfarin 5mg MOWEFRSA, and warfarin 7.5mg SUTUTH. 06/21/21: Patient seen and examined in the emergency department, patient is waiting for a bed. In no acute distress. His breathing has slightly improved. He is receiving PO azithromycin, Duonebs, IV Rocephin. Patient is currently maintained on amlodipine 5 mg daily, aspirin 81 mg daily, atorvastatin 80 mg nightly, carvedilol 25 mg twice a day, Lasix 40mg PO daily, losartan 75 mg nightly, magnesium oxide 400 mg nightly, warfarin 5mg MOWEFRSA, and warfarin 7.5mg SUTUTH. He received 7.5mg last night. Laboratory data reviewed, WBC 9.4, hemoglobin 14.4, platelets 217, INR 2.5, sodium 136, potassium 4.1, BUN 13, serum creatinine 0.5, magnesium 1.6 PHYSICAL EXAM: VITAL SIGNS: Blood pressure 159/71, heart rate 75, afebrile, maintaining oxygen saturations on 2 L nasal cannula GENERAL: Well-developed in no acute distress. HEENT: Neck Supple. No JVD LUNGS: Respirations even and unlabored. Lungs essentially diminished to auscultation bilaterally. Some mild wheezing bilaterally HEART: Regular rate and rhythm. S1 and S2 heard. ABDOMEN: Soft. Nondistended. Nontender. EXTREMITIES: Normal range of motion. No clubbing or cyanosis. Peripheral pulses intact. No lower extremity edema NEUROLOGIC: Awake and alert. Oriented x 3. ASSESSMENT: Dyspnea Coronary artery disease with previous PCI 3 History of mechanical mitral valve replacement, maze procedure, and CABG 2: right internal mammary artery to RCA and saphenous vein graft of the aorta to the second obtuse marginal artery, 2018 - on Coumadin Paroxysmal atrial fibrillation Hyperlipidemia Hypertension Obstructive sleep apnea PLAN: -Dyspnea does not appear to be cardiac etiology at this time, patient does not appear to be in acute congestive heart failure, patient with recent Lexiscan stress test in June 2021 and cardiac catheterization in November 2020 as reported above, troponin negative x 2. ProBNP 270. -Pulmonary following. -Patient is stable from a cardiology perspective, we will continue current home medications. We will follow the patient as needed. Recommend follow up with Dr. Valles as outpatient. Nurse practitioner note has been reviewed by physician. Signing provider agrees with the documented findings, assessment, and plan of care. Objective - Vital Signs Vital signs: Vital Signs Temp 97.7 F 06/21/21 02:02 Pulse 82 06/21/21 11:12 Resp 16 06/21/21 11:12 BP 159/71 06/21/21 02:02 Pulse Ox 95 06/21/21 08:02 Intake & Output 06/20/21 06/21/21 06/21/21 18:59 06:59 18:59 Weight 113.398 kg 113.398 kg - Labs CBC & Chem 7: 06/21/21 03:44 06/21/21 03:44 Labs: Abnormal Lab Results - Last 24 Hours (Table) 06/21/21 06/21/21 06/21/21 Range/Units 03:44 03:44 03:44 Neutrophils # 8.4 H (1.3-7.7) k/uL Lymphocytes # 0.9 L (1.0-4.8) k/uL PT 23.9 H (9.0-12.0) sec INR 2.5 H (<1.2) Sodium 136 L (137-145) mmol/L Creatinine 0.54 L (0.66-1.25) mg/dL Glucose 149 H (74-99) mg/dL
[2021-06-21] MEDS: WARFARIN 7.5 MG TAB PO SCH (18:11)
[2021-06-21] MEDS: THIAMINE 100 MG TAB PO SCH (18:45)
[2021-06-21] MEDS: MAGNESIUM OXIDE 400 MG TAB PO SCH (20:01)
[2021-06-21] MEDS: LOSARTAN 25 MG TAB PO SCH (20:01)
[2021-06-21] MEDS: ATORVASTATIN 80 MG TAB PO SCH (20:01)
[2021-06-22] MEDS: methylPREDNISolone SOD SUCCI 125 MG/2 ML VIAL IV SCH ×4 (00:24→17:53)
[2021-06-22 06:41] LABS: INR 3.4 (<1.2)
[2021-06-22] MEDS: IPRATROPIUM-ALBUTEROL 3 ML NEB INHALATION SCH ×4 (07:39→20:32)
[2021-06-22] MEDS: FORMOTEROL FUMARATE 20 MCG/2 ML NEBU INHALATION SCH ×2 (07:39→20:32)
[2021-06-22] MEDS: FUROSEMIDE 40 MG TAB PO SCH (07:47)
[2021-06-22] MEDS: ASPIRIN 81 MG PO SCH (07:48)
[2021-06-22] MEDS: carvediloL 12.5 MG TAB PO SCH ×2 (07:48→17:54)
[2021-06-22] MEDS: SERTRALINE 50 MG TAB PO SCH (07:48)
[2021-06-22] MEDS: THIAMINE 100 MG TAB PO SCH ×2 (07:48→17:54)
[2021-06-22] MEDS: AZITHROMYCIN 500 MG TAB PO SCH (07:48)
[2021-06-22] MEDS: MULTIVITAMINS, THERA 1 EACH TAB PO SCH (07:48)
[2021-06-22] MEDS: PANTOPRAZOLE 40 MG TABLET PO SCH (07:49)
[2021-06-22] MEDS: amLODIPine 5 MG TAB PO SCH (07:49)
[2021-06-22] MEDS: traMADol 50 MG TAB PO PRN ×2 (07:49→17:53)
--- NOTE | 2021-06-22 08:40 | P.PN ---
Subjective Progress Note Date: 06/22/21 Principal diagnosis: The patient is 56-year-old white male essentially admitted for exacerbation of COPD with pneumonia. The patient has been stabilizing but we had a long discuss ion regarding prognosis of his COPD. He has not a smoker at this time but has an underlying history of work-related secondhand smoke. 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 The patient feels much better but we need to see what she will do once ambulation is increased. He is not ashen at this time but after long discussion seems to be able to finish sentences more appropriately today than yesterday. Objective - Vital Signs Vital signs: Vital Signs Temp 97.8 F 06/22/21 08:00 Pulse 82 06/22/21 08:04 Resp 15 06/22/21 08:00 BP 157/89 06/22/21 08:00 Pulse Ox 96 06/22/21 08:00 Intake & Output 06/21/21 06/22/21 06/22/21 18:59 06:59 18:59 Weight 113.398 kg Other: Voiding Method Toilet # Voids 0 2 - Constitutional General appearance: Present: obese - EENT Eyes: Absent: abnormal pupil - Respiratory Respiratory: bilateral: diminished - Cardiovascular Rhythm: regular Heart sounds: normal: S1, S2 Abnormal Heart Sounds: Absent: S3 Gallop - Gastrointestinal General gastrointestinal: Present: soft. Absent: tenderness - Integumentary Integumentary: Absent: cellulitis - Labs CBC & Chem 7: 06/21/21 03:44 06/21/21 03:44 Labs: Abnormal Lab Results - Last 24 Hours (Table) 06/22/21 Range/Units 05:40 PT 33.0 H (9.0-12.0) sec INR 3.4 H (<1.2) Microbiology - Last 24 Hours (Table) 06/20/21 08:52 Blood Culture - Preliminary Blood No Growth after 24 hours 06/20/21 09:05 Blood Culture - Preliminary Blood No Growth after 24 hours Assessment and Plan (1) Acute exacerbation of chronic obstructive airways disease Current Visit: Yes Status: Acute Code(s): J44.1 - CHRONIC OBSTRUCTIVE PULMONARY DISEASE W (ACUTE) EXACERBATION SNOMED Code(s): 008505746 (2) Pneumonia Current Visit: Yes Status: Acute Code(s): J18.9 - PNEUMONIA, UNSPECIFIED ORGANISM SNOMED Code(s): 958556540 (3) Atrial fibrillation Current Visit: No Status: Acute Code(s): I48.91 - UNSPECIFIED ATRIAL FIBRILLATION SNOMED Code(s): 57888738 (4) COPD (chronic obstructive pulmonary disease) Current Visit: No Status: Chronic Code(s): J44.9 - CHRONIC OBSTRUCTIVE PULMONARY DISEASE, UNSPECIFIED SNOMED Code(s): 41965595 (5) Hypertension Current Visit: No Status: Chronic Code(s): I10 - ESSENTIAL (PRIMARY) HYPERTENSION SNOMED Code(s): 74908297 (6) Former smoker Current Visit: No Status: Resolved Code(s): Z87.891 - PERSONAL HISTORY OF NICOTINE DEPENDENCE SNOMED Code(s): 4379078 Plan: Adjust hypertensive medication. Appreciate pulmonology input. Check CBC and CMP in a.m. Secondhand smoke avoidance was discussed. Otherwise, had a long discussion regarding alcohol cessation.
[2021-06-22 09:01] LABS: HCT 40.9 % (39.6-50.0); HGB 13.6 g/dL (13.0-17.0); MCH 30.4 pg (27.0-32.0); MCHC 33.3 g/dL (32.0-37.0); MCV 91.3 fL (80.0-97.0); Mean Platelet Volume 11.6 fL (9.5-12.2); Platelet Count 232 X 10*3/uL (140-440); RBC 4.48 X 10*6/uL (4.40-5.60); RDW 13.6 % (11.5-14.5); WBC 13.82 X 10*3/uL (4.50-10.00)
--- NOTE | 2021-06-22 12:36 | P.PN ---
Subjective Progress Note Date: 06/22/21 Principal diagnosis: dyspnea, COVID 19 56-year-old patient with past history of COPD, obstructive sleep apnea on CPAP, history of paroxysmal atrial fibrillation, currently in sinus rhythm, history of mechanical mitral valve replacement, Maze procedure and two-vessel coronary art dereck bypass grafting in 2018, patient is on Coumadin for chronic anticoagulation, hypertension, hyperlipidemia, former smoker patient quit smoking 3 years ago. FEV1 of 66% of predicted, consistent with stage II COPD. Patient follows with Dr. Garcia from the pulmonary clinic, on 06/20/2020 patient came in for evaluation of worsening shortness of breath, cough. Denied any fever, chest pain, denied any lower extremity swelling or pain. He's been taking his Coumadin, on admission his INR is 2.1. Chest x-ray on admission shows underlying chronic interstitial changes. Post median sternotomy and left atrial appendage clipping placement. COVID-19 PCR was negative. he has been afebrile while in hospital. EKG showed sinus rhythm with sinus arrhythmia and first- degree AV block. Admission blood work showed a white blood cell count of 9.8, hemoglobin of 14.8, sodium is 142, potassium is 4.2, CO2 is 25, BUN of 17 creatinine 0.68, plasma lactic acid was 1.8, AST was 93, ALT was 65, alkaline phosphatase was 164, 2 sets of troponins were 0.0-9, and 0.019, proBNP was 270. Patient had a heart catheterization on 11/10/2020 showing probable total occlusion of the vein graft to the circumflex, the BINTA to the RCA was patent, LAD and branches have no significant disease, distal circumflex was occluded, [place] RCA had mild occlusion, filling pressures were acceptable, without a gradient. Recent echocardiogram from November 2020 showed EF of 50-55%, moderately enlarged right ventricle, mechanical [place] mitral valve, mild tricuspid regurg, no evidence of pulmonary hypertension. In the emergency department patient received a breathing treatment, he was started on azithromycin and Roce phin, IV steroids, and he is feeling better. On 06/21/2021 patient seen in follow-up in the emergency department, patient is still awaiting a bed for medical surgical floor. He states he is breathing a bit better, however he has not been up out of bed yet, and he does not know how his breathing will behave when he is up and moving around. Vital signs have been stable overnight, patient's symptoms of oxygen pulse ox is 95-96%, no fever or chills, lung sounds are negative for any wheezing or crackles or rhonchi. Only occasional cough, he remains on IV Solu-Medrol, he was started on azithromy ceci and Rocephin, he is on nebulized bronchodilators, his chest x-ray was showing chronic interstitial changes, pro-calcitonin level is pending, no evidence of leukocytosis on his blood work, white blood cell count is 9.4, hemoglobin is 14.4, today's INR is 2.5, electrolytes and renal profile were u nremarkable. On today's evaluation on 06/22/2021 patient is seen again on medical surgical floor, he states his breathing is improving, still feels like there is some chest congestion and he is not able to bring up the phlegm, he continues on azithromycin, he is on IV steroids, and nebulized bronchodilators, he feels like the nebulized Pulmicort and Perforomist are helping him. No fever or chills, room air pulse ox is 96%, blood pressure stable, lung sounds are diminished, no wheezing, no rhonchi auscultated, he feels like his abdomen is getting distended but no swelling in his lower extremities. Labs have been reviewed, his white blood cell count is 13.8, hemoglobin is 13.6, his BMP still pending, his pro calcitonin level is 0.03, COVID-19 status is negative. His brought his CPAP machine from home, and patient has been wearing it Objective - Vital Signs Vital signs: Vital Signs Temp 97.8 F 06/22/21 08:00 Pulse 74 06/22/21 11:49 Resp 15 06/22/21 08:00 BP 157/89 06/22/21 08:00 Pulse Ox 96 06/22/21 08:00 Intake & Output 06/21/21 06/22/21 06/22/21 18:59 06:59 18:59 Weight 113.398 kg Other: Voiding Method Toilet # Voids 0 2 - Exam GENERAL EXAM: Alert, very pleasant, 56-year-old white male on 2 l/min pulse ox of 97% comfortable in no apparent distress. HEAD: Normocephalic/atraumatic. EYES: Normal reaction of pupils, equal size. Conjunctiva pink, sclera white. NOSE: Clear with pink turbinates. THROAT: No erythema or exudates. NECK: No masses, no JVD, no thyroid enlargement, no adenopathy. CHEST: No chest wall deformity. Symmetrical expansion. LUNGS: Equal air entry with diminished breath sounds, with mild wheezing and crackles CVS: Regular rate and rhythm, normal S1 and S2, no gallops, no murmurs, no rubs ABDOMEN: Soft, nontender. No hepatosplenomegaly, normal bowel sounds, no guarding or rigidity. EXTREMITIES: No clubbing, no edema, no cyanosis, 2+ pulses and upper and lower extremities. MUSCULOSKELETAL: Muscle strength and tone normal. SPINE: No scoliosis or deformity SKIN: No rashes CENTRAL NERVOUS SYSTEM: Alert and oriented -3. No focal deficits, tone is normal in all 4 extremities. PSYCHIATRIC: Alert and oriented -3. Appropriate affect. Intact judgment and insight. - Labs CBC & Chem 7: 06/22/21 05:40 06/21/21 03:44 Labs: Abnormal Lab Results - Last 24 Hours (Table) 06/22/21 06/22/21 Range/Units 05:40 05:40 WBC 13.82 H (4.50-10.00) X 10*3/uL PT 33.0 H (9.0-12.0) sec INR 3.4 H (<1.2) Microbiology - Last 24 Hours (Table) 06/20/21 08:52 Blood Culture - Preliminary Blood No Growth after 24 hours 06/20/21 09:05 Blood Culture - Preliminary Blood No Growth after 24 hours Assessment and Plan Plan: Assessment: #1. Acute exacerbation of COPD, chest x-ray showed patchy basilar densities, and mildly increased interstitium, rule out possibility of CHF versus interstitial pneumonia, interstitial pneumonitis seems to be less likely, patient nevertheless is covered with azithromycin and Rocephin, we will send pro-calcitonin level. #2. Coronary artery disease, status post two-vessel coronary artery bypass grafting, mechanical mitral valve replacement and maze procedure in 2018, on Coumadin #3. History of paroxysmal atrial fibrillation, currently in sinus mechanism #4. Hypertension #5. Hyperlipidemia #6. COPD not oxygen dependent in the sling, with baseline FEV1 of 66% predicted #7. Obstructive sleep apnea on CPAP #8. GERD/reflux #9. Former smoker remission for the past 3 years Plan: Continue current medical treatment Pro-calcitonin level is negative No clear evidence of pneumonia finish total of 5 day course of oral azithromycin COVID-19 PCR was negative Continue breathing treatments Continue nebulized bronchodilators and steroids Increase activity as tolerated, and feels like he could benefit from a nebulized treatments at home, and is on Anoro Ellipta, she will resume, and we will add albuterol nebulized treatments 3 times daily and as needed home He will need outpatient follow-up with Dr. Garcia in the office in 7-10 days We'll continue to follow I performed a history & physical examination of the patient and discussed their management with my nurse practitioner, Shonda Dunlap. I reviewed the nurse practitioner's note and agree with the documented findings and plan of care. Lung sounds are positive for diffuse wheezes throughout the lung [place]. The findings and the impression was discussed with the patient. I attest to the documentation by the nurse practitioner.
[2021-06-22 17:32] LABS: African American GFR (CKD) 117.8 (60.0-200.0); Albumin 4.4 g/dL (3.8-4.9); Albumin/Globulin Ratio 1.96 (1.60-3.17); Anion Gap 16.9 mmol/L (4.00-12.00); BUN/Creat Ratio 23.38 Ratio (12.00-20.00); Blood Urea Nitrogen 17.3 mg/dL (9.0-27.0); Calcium 9.3 mg/dL (8.7-10.3); Globulin 2.3 g/dL (1.6-3.3); Non-African American GFR(CKD) 101.7 (60.0-200.0); Potassium 4.3 mmol/L (3.5-5.5); Total Bilirubin 0.8 mg/dL (0.30-1.20); Total Protein 6.7 g/dL (6.2-8.2)
[2021-06-22] MEDS ORDERED: WARFARIN 5 MG TAB PO SCH (18:00)
[2021-06-22] MEDS: MAGNESIUM OXIDE 400 MG TAB PO SCH (21:32)
[2021-06-22] MEDS: LOSARTAN 25 MG TAB PO SCH (21:32)
[2021-06-22] MEDS: ATORVASTATIN 80 MG TAB PO SCH (21:32)
[2021-06-23] MEDS: methylPREDNISolone SOD SUCCI 125 MG/2 ML VIAL IV SCH ×3 (00:36→12:06)
[2021-06-23 07:12] LABS: INR 3.7 (<1.2); Prothrombin Time 35.8 sec (9.0-12.0)
[2021-06-23] MEDS: ASPIRIN 81 MG PO SCH (07:29)
[2021-06-23] MEDS: MULTIVITAMINS, THERA 1 EACH TAB PO SCH (07:29)
[2021-06-23] MEDS: THIAMINE 100 MG TAB PO SCH (07:29)
[2021-06-23] MEDS: amLODIPine 5 MG TAB PO SCH (07:29)
[2021-06-23] MEDS: carvediloL 12.5 MG TAB PO SCH (07:29)
[2021-06-23] MEDS: PANTOPRAZOLE 40 MG TABLET PO SCH (07:29)
[2021-06-23] MEDS: SERTRALINE 50 MG TAB PO SCH (07:29)
[2021-06-23] MEDS: FUROSEMIDE 40 MG TAB PO SCH (07:29)
[2021-06-23] MEDS: AZITHROMYCIN 500 MG TAB PO SCH (08:40)
[2021-06-23] MEDS: FORMOTEROL FUMARATE 20 MCG/2 ML NEBU INHALATION SCH (08:44)
[2021-06-23] MEDS: IPRATROPIUM-ALBUTEROL 3 ML NEB INHALATION SCH ×2 (08:44→12:01)
[2021-06-23 09:29] LABS: HCT 40.4 % (39.6-50.0); HGB 13.1 g/dL (13.0-17.0); MCH 29.8 pg (27.0-32.0); MCHC 32.4 g/dL (32.0-37.0); MCV 91.8 fL (80.0-97.0); Mean Platelet Volume 11.5 fL (9.5-12.2); Platelet Count 210 X 10*3/uL (140-440); RDW 13.6 % (11.5-14.5); WBC 11.86 X 10*3/uL (4.50-10.00)
[2021-06-23 09:52] LABS: African American GFR (CKD) 124.3 (60.0-200.0); Albumin/Globulin Ratio 1.9 (1.60-3.17); Anion Gap 12.2 mmol/L (4.00-12.00); BUN/Creat Ratio 20.31 Ratio (12.00-20.00); Blood Urea Nitrogen 13.2 mg/dL (9.0-27.0); Calcium 8.9 mg/dL (8.7-10.3); Globulin 2.1 g/dL (1.6-3.3); Non-African American GFR(CKD) 107.2 (60.0-200.0); Potassium 3.8 mmol/L (3.5-5.5); Total Bilirubin 0.5 mg/dL (0.30-1.20); Total Protein 6.1 g/dL (6.2-8.2)
--- NOTE | 2021-06-23 10:22 | P.PN ---
Subjective Progress Note Date: 06/23/21 Principal diagnosis: dyspnea, COVID 19 56-year-old patient with past history of COPD, obstructive sleep apnea on CPAP, history of paroxysmal atrial fibrillation, currently in sinus rhythm, history of mechanical mitral valve replacement, Maze procedure and two-vessel coronary art dereck bypass grafting in 2018, patient is on Coumadin for chronic anticoagulation, hypertension, hyperlipidemia, former smoker patient quit smoking 3 years ago. FEV1 of 66% of predicted, consistent with stage II COPD. Patient follows with Dr. Garcia from the pulmonary clinic, on 06/20/2020 patient came in for evaluation of worsening shortness of breath, cough. Denied any fever, chest pain, denied any lower extremity swelling or pain. He's been taking his Coumadin, on admission his INR is 2.1. Chest x-ray on admission shows underlying chronic interstitial changes. Post median sternotomy and left atrial appendage clipping placement. COVID-19 PCR was negative. he has been afebrile while in hospital. EKG showed sinus rhythm with sinus arrhythmia and first- degree AV block. Admission blood work showed a white blood cell count of 9.8, hemoglobin of 14.8, sodium is 142, potassium is 4.2, CO2 is 25, BUN of 17 creatinine 0.68, plasma lactic acid was 1.8, AST was 93, ALT was 65, alkaline phosphatase was 164, 2 sets of troponins were 0.0-9, and 0.019, proBNP was 270. Patient had a heart catheterization on 11/10/2020 showing probable total occlusion of the vein graft to the circumflex, the BINTA to the RCA was patent, LAD and branches have no significant disease, distal circumflex was occluded, [place] RCA had mild occlusion, filling pressures were acceptable, without a gradient. Recent echocardiogram from November 2020 showed EF of 50-55%, moderately enlarged right ventricle, mechanical [place] mitral valve, mild tricuspid regurg, no evidence of pulmonary hypertension. In the emergency department patient received a breathing treatment, he was started on azithromycin and Roce phin, IV steroids, and he is feeling better. On 06/21/2021 patient seen in follow-up in the emergency department, patient is still awaiting a bed for medical surgical floor. He states he is breathing a bit better, however he has not been up out of bed yet, and he does not know how his breathing will behave when he is up and moving around. Vital signs have been stable overnight, patient's symptoms of oxygen pulse ox is 95-96%, no fever or chills, lung sounds are negative for any wheezing or crackles or rhonchi. Only occasional cough, he remains on IV Solu-Medrol, he was started on azithromy ceci and Rocephin, he is on nebulized bronchodilators, his chest x-ray was showing chronic interstitial changes, pro-calcitonin level is pending, no evidence of leukocytosis on his blood work, white blood cell count is 9.4, hemoglobin is 14.4, today's INR is 2.5, electrolytes and renal profile were u nremarkable. On today's evaluation on 06/22/2021 patient is seen again on medical surgical floor, he states his breathing is improving, still feels like there is some chest congestion and he is not able to bring up the phlegm, he continues on azithromycin, he is on IV steroids, and nebulized bronchodilators, he feels like the nebulized Pulmicort and Perforomist are helping him. No fever or chills, room air pulse ox is 96%, blood pressure stable, lung sounds are diminished, no wheezing, no rhonchi auscultated, he feels like his abdomen is getting distended but no swelling in his lower extremities. Labs have been reviewed, his white blood cell count is 13.8, hemoglobin is 13.6, his BMP still pending, his pro calcitonin level is 0.03, COVID-19 status is negative. His brought his CPAP machine from home, and patient has been wearing it On today'ss evaluation on 06/23/2021 patient seen in follow-up on medical surgical floor. He states he still feels like there is some chest congestion and he cannot bring up any phlegm, on physical examination the lungs are clear, no wheezing, no rhonchi, his cough is dry, not congested. Overall he feels that his breathing has improved. He is ready to go home today, he has been on high- dose IV steroids, on oral Zithromax, his pro calcitonin level was negative, his chest x-ray was negative for any acute pulmonary infiltrates. His been on nebulized bronchodilators. Had no fever or chills, he tested negative for COVID-19. His been tolerating ambulation. Objective - Vital Signs Vital signs: Vital Signs Temp 97.6 F 06/23/21 08:00 Pulse 72 06/23/21 09:09 Resp 18 06/23/21 09:09 BP 166/91 06/23/21 08:00 Pulse Ox 98 06/23/21 08:44 Intake & Output 06/22/21 06/23/21 06/23/21 18:59 06:59 18:59 Intake Total 480 236 Balance 480 236 Intake: Oral 480 236 Other: Voiding Method Toilet Toilet # Voids 2 1 - Exam GENERAL EXAM: Alert, very pleasant, 56-year-old white male on 2 l/min pulse ox of 97% comfortable in no apparent distress. HEAD: Normocephalic/atraumatic. EYES: Normal reaction of pupils, equal size. Conjunctiva pink, sclera white. NOSE: Clear with pink turbinates. THROAT: No erythema or exudates. NECK: No masses, no JVD, no thyroid enlargement, no adenopathy. CHEST: No chest wall deformity. Symmetrical expansion. LUNGS: Equal air entry with diminished breath sounds, with mild wheezing and crackles CVS: Regular rate and rhythm, normal S1 and S2, no gallops, no murmurs, no rubs ABDOMEN: Soft, nontender. No hepatosplenomegaly, normal bowel sounds, no guarding or rigidity. EXTREMITIES: No clubbing, no edema, no cyanosis, 2+ pulses and upper and lower extremities. MUSCULOSKELETAL: Muscle strength and tone normal. SPINE: No scoliosis or deformity SKIN: No rashes CENTRAL NERVOUS SYSTEM: Alert and oriented -3. No focal deficits, tone is normal in all 4 extremities. PSYCHIATRIC: Alert and oriented -3. Appropriate affect. Intact judgment and insight. - Labs CBC & Chem 7: 06/23/21 06:23 06/23/21 06:23 Labs: Abnormal Lab Results - Last 24 Hours (Table) 06/22/21 06/23/21 06/23/21 Range/Units 05:40 06:23 06:23 WBC 11.86 H (4.50-10.00) X 10*3/uL PT (9.0-12.0) sec INR (<1.2) Anion Gap 16.90 H 12.20 H (4.00-12.00) mmol/L BUN/Creatinine Ratio 23.38 H 20.31 H (12.00-20.00) Ratio Glucose 143 H 172 H (70-110) mg/dL Total Protein 6.1 L (6.2-8.2) g/dL 06/23/21 Range/Units 06:23 WBC (4.50-10.00) X 10*3/uL PT 35.8 H (9.0-12.0) sec INR 3.7 H (<1.2) Anion Gap (4.00-12.00) mmol/L BUN/Creatinine Ratio (12.00-20.00) Ratio Glucose (70-110) mg/dL Total Protein (6.2-8.2) g/dL Microbiology - Last 24 Hours (Table) 06/20/21 08:52 Blood Culture - Preliminary Blood No Growth after 48 hours 06/20/21 09:05 Blood Culture - Preliminary Blood No Growth after 48 hours Assessment and Plan Plan: Assessment: #1. Acute exacerbation of COPD, chest x-ray showed patchy basilar densities, and mildly increased interstitium, rule out possibility of CHF versus interstitial pneumonia, interstitial pneumonitis seems to be less likely, patient nevertheless is covered with azithromycin and Rocephin, we will send pro-calcitonin level. #2. Coronary artery disease, status post two-vessel coronary artery bypass grafting, mechanical mitral valve replacement and maze procedure in 2018, on Coumadin #3. History of paroxysmal atrial fibrillation, currently in sinus mechanism #4. Hypertension #5. Hyperlipidemia #6. COPD not oxygen dependent in the sling, with baseline FEV1 of 66% predicted #7. Obstructive sleep apnea on CPAP #8. GERD/reflux #9. Former smoker remission for the past 3 years Plan: Events overnight, Vital signs have been stable Breathing is improving Occasional cough, no phlegm production Still feels like there is some congestion that he cannot bring up No Fever or chills No clear evidence of pneumonia finish total of 5 day course of oral azithromycin Nebulizer machine with nebulized albuterol will be set up for home use and patient will continue on Anoro Ellipta. He will need outpatient follow-up with Dr. Garcia in the office in 7-10 days We'll continue to follow I performed a history & physical examination of the patient and discussed their management with my nurse practitioner, Shonda Dunlap. I reviewed the nurse practitioner's note and agree with the documented findings and plan of care. Lung sounds are positive for diffuse wheezes throughout the lung santamaria. The findings and the impression was discussed with the patient. I attest to the documentation by the nurse practitioner. Time with Patient: Less than 30
[2021-06-23 12:04] VITALS: RESP 16
--- NOTE | 2021-06-23 13:25 | P.DS ---
Providers Date of admission: 06/20/21 09:06 Attending physician: Chandler Valderrama Consults: 06/20/21 09:05 Consult Physician Routine Consulting Provider: Lily Valles Consult Reason/Comments: Dyspnea Do you want consulting provider notified?: Yes 06/20/21 09:07 Consult Physician Routine Consulting Provider: Lien Garcia Consult Reason/Comments: COPD/PNA Do you want consulting provider notified?: Yes Primary care physician: Chandler Valderrama - Discharge Diagnosis(es) (1) Acute exacerbation of chronic obstructive airways disease Current Visit: Yes Status: Acute (2) Pneumonia Current Visit: Yes Status: Acute (3) Atrial fibrillation Current Visit: No Status: Acute (4) COPD (chronic obstructive pulmonary disease) Current Visit: No Status: Chronic (5) Hypertension Current Visit: No Status: Chronic (6) Former smoker Current Visit: No Status: Resolved Hospital Course: This discharge summary on a 56-year-old white male essentially admitted for acute exacerbation of COPD with pneumonia. The patient was doing quite well. But started having difficulty with shortness of breath. He was appropriately admitted with pulmonology consultation. The patient was then placed on appropriate steroid and antibiotic treatment and improved. Beta long discussion about his prognosis. 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 The patient was voiding without difficulties ambulating without difficulty. Transition to oral medication and to follow-up in about 5 days. Patient Condition at Discharge: Stable Plan - Discharge Summary New Discharge Prescriptions: New predniSONE 0 mg PO DIRECTED 12 Days #30 tab Azithromycin [Zithromax] 500 mg PO DAILY 3 Days #3 tab Albuterol Sulfate 1.25 mg INHALATION Q6H 30 Days #6 pack No Action Multivitamin [Men's Multi-Vitamin] 1 tab PO DAILY Umeclidinium Brm/Vilanterol Tr [Anoro Ellipta 62.5-25 Mcg INH] 1 puff INHALATION RT-DAILY Aspirin 81 mg PO DAILY #30 chew Atorvastatin [Lipitor] 80 mg PO HS #30 tab Sertraline [Zoloft] 50 mg PO DAILY Magnesium Oxide [Mag-Ox] 500 mg PO HS Losartan [Cozaar] 75 mg PO HS Furosemide [Lasix] 40 mg PO DAILY carvediloL [Coreg] 12.5 mg PO BID Warfarin [Coumadin] 5 mg PO MOWEFRSA@2100 Warfarin [Coumadin] 7.5 mg PO SUTUTH@2100 Pantoprazole [Protonix] 40 mg PO DAILY Mv-Mn/C/Glutamin/Lysin/[id number] [Airborne Gummies] 1 tab PO DAILY Albuterol Sulfate [Proair Hfa] 2 puff INHALATION RT-QID PRN PRN Reason: Shortness Of Breath Inulin/Chromium Picolinate [Fiber Gummies Chew] 1 tab PO DAILY [place]asta-3 Fatty Acids/Fish Oil [[place]-3 Fish Oil 1,200 mg Sfgl] 1 cap PO DAILY Discharge Medication List Multivitamin [Men's Multi-Vitamin] 1 tab PO DAILY 01/22/14 [History] Umeclidinium Brm/Vilanterol Tr [Anoro Ellipta 62.5-25 Mcg INH] 1 puff INHALATION RT-DAILY 07/04/18 [History] Aspirin 81 mg PO DAILY #30 chew 08/24/18 [Rx] Atorvastatin [Lipitor] 80 mg PO HS #30 tab 08/24/18 [Rx] Furosemide [Lasix] 40 mg PO DAILY 05/20/19 [History] Losartan [Cozaar] 75 mg PO HS 05/20/19 [History] Magnesium Oxide [Mag-Ox] 500 mg PO HS 05/20/19 [History] Sertraline [Zoloft] 50 mg PO DAILY 05/20/19 [History] carvediloL [Coreg] 12.5 mg PO BID 05/20/19 [History] Pantoprazole [Protonix] 40 mg PO DAILY 11/08/20 [History] Warfarin [Coumadin] 5 mg PO MOWEFRSA@209911/08/20 [History] Warfarin [Coumadin] 7.5 mg PO SUTUTH@209911/08/20 [History] Albuterol Sulfate [Proair Hfa] 2 puff INHALATION RT-QID PRN 06/20/21 [History] Inulin/Chromium Picolinate [Fiber Gummies Chew] 1 tab PO DAILY 06/20/21 [History] Mv-Mn/C/Glutamin/Lysin/[id number] [Airborne Gummies] 1 tab PO DAILY 06/20/21 [History] Shasta-3 Fatty Acids/Fish Oil [[place]asta-3 Fish Oil 1,200 mg Sfgl] 1 cap PO DAILY 06/20/21 [History] Albuterol Sulfate 1.25 mg INHALATION Q6H 30 Days #6 pack 06/22/21 [Rx] Azithromycin [Zithromax] 500 mg PO DAILY 3 Days #3 tab 06/22/21 [Rx] predniSONE 0 mg PO DIRECTED 12 Days #30 tab 06/22/21 [Rx] Follow up Appointment(s)/Referral(s): Lily Valles MD [STAFF PHYSICIAN] - 2 Weeks [facility] [NON-STAFF] - As Needed (nebulizer) Chandler Valderrama MD [Primary Care Provider] - 1-2 days Lien Garcia MD [STAFF PHYSICIAN] - 10 Days
[2021-06-23 13:47] VITALS: BP 115/66; PULSE 72; TEMP 97.7
[2021-06-23] MEDS ORDERED: WARFARIN 2.5 MG TAB PO ONE (18:00)
--- NOTE | 2021-06-27 08:48 | CDI ---
Documentation Clarification Form Date: 06/27/21 From: Kindra Best Admit Date: 06/20/2021 09:06:00 AM Patient Name: Tristen Hare Visit Number: [id number] Discharge Date: 06/23/2021 03:00:00 PM ATTENTION: The Clinical Documentation Specialists (CDI) and [facility] Coding Staff appreciate your assistance in clarifying documentation. Please respond to the clarification below the line at the bottom and electronically sign. The CDI & [facility] Coding staff will review the response and follow-up if needed. Please note: Queries are made part of the Legal Health Record. If you have any questions, please contact the author of this message via ITS. Dr. Lily Valles, Your patient has the documented diagnosis of unspecified CHF in ED Note, H&P, in your 06/21 progress note. Additional information regarding the [type, acuity] of CHF is requested. History/Risk Factors: S/P CABG, valve replacement & stent, COPD, PAF, former smoker Clinical Indicators: Presented due to dyspnea. VS/Pulse OX: T 98.6, P 89, R 23, BP 180/96, O2 Sat 95 BNP: 270 06/07/21 Office Echocardiogram Results: EF 55%, stable bioprosthetic mitral valve. Chest X Ray: Correlate to exclude pneumonia, there is underlying chronic interstitial change. Treatment: Lasix 40 mg PO In your professional opinion, can you please clarify the [acuity and type] of CHF if known? [ ] Chronic Diastolic Heart Failure (preserved EF) [ ] Other, please specify [ ] Unable to determine no heart failure MTDD
== END 2021-06-23 15:00 | disposition home or self-care (01) | DRG 190 ==
LOC: EC 06:57 → 4SSUR 09:06
PROVIDERS: ADMIT Family Medicine; ATTEND Family Medicine
DX: J44.0 Chronic obstructive pulmonary disease with (acute) lower respiratory infection (principal); J18.9 Pneumonia, unspecified organism; I25.810 Atherosclerosis of coronary artery bypass graft(s) without angina pectoris; J44.1 Chronic obstructive pulmonary disease with (acute) exacerbation; I11.9 Hypertensive heart disease without heart failure; I25.82 Chronic total occlusion of coronary artery; I48.0 Paroxysmal atrial fibrillation; Z20.822 Contact with and (suspected) exposure to COVID-19; I07.1 Rheumatic tricuspid insufficiency; I25.10 Atherosclerotic heart disease of native coronary artery without angina pectoris; I44.0 Atrioventricular block, first degree; K21.9 Gastro-esophageal reflux disease without esophagitis; E78.5 Hyperlipidemia, unspecified; G47.33 Obstructive sleep apnea (adult) (pediatric); R51.9 Headache, unspecified; Z79.82 Long term (current) use of aspirin; Z79.01 Long term (current) use of anticoagulants; Z79.899 Other long term (current) drug therapy; Z87.891 Personal history of nicotine dependence; Z71.41 Alcohol abuse counseling and surveillance of alcoholic; Z90.49 Acquired absence of other specified parts of digestive tract; Z95.5 Presence of coronary angioplasty implant and graft; Z95.1 Presence of aortocoronary bypass graft; Z95.2 Presence of prosthetic heart valve; Z98.890 Other specified postprocedural states; Z88.0 Allergy status to penicillin; Z82.49 Family history of ischemic heart disease and other diseases of the circulatory system; Z82.69 Family history of other diseases of the musculoskeletal system and connective tissue
CPT/HCPCS: 36415; 71046; 80053; 83605; 83735; 83880; 84145; 84484; 85025; 85027; 85610; 85730; 87040; 87635; 93005; 94640; 94760; 96374; 96375; 99285

== ENCOUNTER 2021-11-23 06:40 | Observation (INO) | payer BC ==
[2021-11-23] MEDS ORDERED: MORPHINE SULFATE 4 MG/ML SYRINGE IVP STA (07:25)
[2021-11-23] MEDS ORDERED: ONDANSETRON 4 MG/2 ML VIAL IVP STA (07:25)
[2021-11-23 07:31] LABS: Basophils # (A) 0.1 k/uL (0-0.2); Basophils % (A) 1 %; Eosinophils # (A) 0.3 k/uL (0-0.7); Eosinophils % (A) 3 %; HCT 47.9 % (39.0-53.0); HGB 16.3 gm/dL (13.0-17.5); Lymphocytes # (A) 1.4 k/uL (1.0-4.8); Lymphocytes % (A) 18 %; MCH 31.4 pg (25.0-35.0); MCV 92.2 fL (80.0-100.0); Mean Platelet Volume 8.7; Monocytes # (A) 0.5 k/uL (0-1.0); Monocytes % (A) 7 %; Neutrophils # (A) 5.6 k/uL (1.3-7.7); Neutrophils % (A) 69 %; Platelet Count 199 k/uL (150-450); RDW 12.4 % (11.5-15.5); WBC 8.2 k/uL (3.8-10.6)
--- NOTE | 2021-11-23 07:33 | ED ---
Chest Pain HPI - General Chief Complaint: Chest Pain Stated Complaint: Chest Pain Time Seen by Provider: 11/23/21 06:58 Source: patient, RN notes reviewed Mode of arrival: ambulatory Limitations: no limitations - History of Present Illness Initial Comments: This a 56-year-old male presents emergency from chief complaint of chest discomfort. Patient states he has not felt well the last couple days but woke today having pressure, pain in his chest. Patient does state that he's had her prior cardiac valve replacement, states that he had coronary bypass 3 years ago. Patient states he is on Coumadin is a mechanical valve. Patient does follow up with her thoracic, cardiology. Patient states he was recently started on Lasix. Patient denies fevers or chills no abdominal discomfort denies any headache, dizziness or any focal weakness. - Related Data Home Medications Medication Instructions Recorded Confirmed Multivitamin [Men's Multi-Vitamin] 1 tab PO DAILY 01/22/14 06/20/21 Umeclidinium Brm/Vilanterol Tr 1 puff INHALATION RT-DAILY 07/04/18 06/20/21 [Anoro Ellipta 62.5-25 Mcg INH] Furosemide [Lasix] 40 mg PO DAILY 05/20/19 06/20/21 Losartan [Cozaar] 75 mg PO HS 05/20/19 06/20/21 Magnesium Oxide [Mag-Ox] 500 mg PO HS 05/20/19 06/20/21 Sertraline [Zoloft] 50 mg PO DAILY 05/20/19 06/20/21 carvediloL [Coreg] 12.5 mg PO BID 05/20/19 06/20/21 Pantoprazole [Protonix] 40 mg PO DAILY 11/08/20 06/20/21 Warfarin [Coumadin] 5 mg PO MOWEFRSA@209911/08/20 06/20/21 Warfarin [Coumadin] 7.5 mg PO SUTUTH@2100 11/08/20 06/20/21 Albuterol Sulfate [Proair Hfa] 2 puff INHALATION RT-QID PRN 06/20/21 06/20/21 Inulin/Chromium Picolinate [Fiber 1 tab PO DAILY 06/20/21 06/20/21 Gummies Chew] Mv-Mn/C/Glutamin/Lysin/[id number] 1 tab PO DAILY 06/20/21 06/20/21 [Airborne Gummies] [place]-3 Fatty Acids/Fish Oil 1 cap PO DAILY 06/20/21 06/20/21 [[place]-3 Fish Oil 1,200 mg [facility]] Albuterol Sulfate 1.25 mg INHALATION RT-Q6H PRN 11/23/21 11/23/21 Isosorbide Mononitrate ER [Imdur] 30 mg PO DAILY 11/23/21 11/23/21 Potassium Chloride ER [K-Dur 10] 10 meq PO DAILY 11/23/21 11/23/21 Previous Rx's Medication Instructions Recorded Aspirin 81 mg PO DAILY #30 chew 08/24/18 Atorvastatin [Lipitor] 80 mg PO HS #30 tab 08/24/18 Allergies Allergy/AdvReac Type Severity Reaction Status Date / Time Penicillins Allergy Unknown Verified 11/23/21 08:16 Childhood Review of Systems ROS Statement: Those systems with pertinent positive or pertinent negative responses have been documented in the HPI. ROS Other: All systems not noted in ROS Statement are negative. EKG Findings - EKG Comments: EKG Findings:: EKG performed at 6:50 rate of 82 SD 212 QRS 124 QT/QTC 386/425 normal sinus rhythm with first-degree block, there is noted to have q AVR aVL and V1 and V2 Past Medical History Past Medical History: Atrial Fibrillation, Coronary Artery Disease (CAD), GERD/Reflux, Hyperlipidemia, Hypertension, Pneumonia, Sleep Apnea/CPAP/BIPAP Additional Past Medical History / Comment(s): DIVERTICULITIS. ALEISHA with Cpap use History of Any Multi-Drug Resistant Organisms: None Reported Past Surgical History: Appendectomy, Coronary Bypass/CABG, Heart Catheterization With Stent Additional Past Surgical History / Comment(s): 2018 PCI with stent, 2018 CABG 2 vessel with mitral valve replacement, cardioversion x 3, DYLAN x2, EGD, colonoscopy, stress test done Past Anesthesia/Blood Transfusion Reactions: No Reported Reaction Date of Last Stent Placement:: 01/22/18 Past Psychological History: No Psychological Hx Reported Smoking Status: Former smoker Past Alcohol Use History: None Reported Past Drug Use History: None Reported - Past Family History Father Family Medical History: Congestive Heart Failure (CHF) Additional Family Medical History / Comment(s): Father of CHF at the age of 68yrs. Mother Family Medical History: No Reported History Additional Family Medical History / Comment(s): Mother at the age of 62 or 63 yrs from myasthenia gravis. Brother(s) Family Medical History: Coronary Artery Disease (CAD) Additional Family Medical History / Comment(s): ONE BROTHER HAD CABG Sister(s) Family Medical History: Coronary Artery Disease (CAD) Additional Family Medical History / Comment(s): ONE SISTER HAS HEART STENTS. ONE SISTER HAS HAD CABG General Exam Limitations: no limitations General appearance: alert, in no apparent distress Head exam: Present: atraumatic, normocephalic, normal inspection Eye exam: Present: normal appearance, PERRL, EOMI. Absent: scleral icterus, conjunctival injection, periorbital swelling ENT exam: Present: normal exam, normal oropharynx, mucous membranes moist Neck exam: Present: normal inspection, full ROM. Absent: tenderness, meningismus, lymphadenopathy Respiratory exam: Present: normal lung sounds bilaterally, decreased breath sounds. Absent: respiratory distress, wheezes, rales, rhonchi, stridor Cardiovascular Exam: Present: regular rate, normal rhythm, normal heart sounds. Absent: systolic murmur, diastolic murmur, rubs, gallop, clicks GI/Abdominal exam: Present: soft, normal bowel sounds. Absent: distended, tenderness, guarding, rebound, rigid Course Vital Signs 11/23/21 06:44 Temperature 98.3 F Pulse Rate 75 Respiratory 18 Rate Blood Pressure 149/94 O2 Sat by Pulse 96 Oximetry Chest Pain MDM - MDM Chest x-ray shows possible early pneumonia versus atelectasis troponin is indeterminate at this time concerning as he has and she didn't coronary artery disease, past medical history. Patient be admitted case discussed with Dr. Valderrama Disposition Clinical Impression: Chest pain Disposition: ADMITTED IP TO THIS [facility] Condition: Fair Referrals: Chandler Valderrama MD [Primary Care Provider] - 1-2 days
[2021-11-23 07:39] LABS: INR 2.2 (<1.2); Prothrombin Time 22.3 sec (9.0-12.0)
[2021-11-23 07:40] LABS: ALT 31 U/L (4-49); AST 31 U/L (17-59); African American GFR (CKD) >90 (>60 ml/min/1.73 sqM); Albumin 4.5 g/dL (3.5-5.0); Alkaline Phosphatase 96 U/L (38-126); Anion Gap 8 mmol/L; Blood Urea Nitrogen 18 mg/dL (9-20); Calcium 9.4 mg/dL (8.4-10.2); Carbon Dioxide 25 mmol/L (22-30); Chloride 104 mmol/L (98-107); Glucose 149 mg/dL (74-99); Magnesium 1.9 mg/dL (1.6-2.3); Non-African American GFR(CKD) >90 (>60 ml/min/1.73 sqM); Potassium 3.7 mmol/L (3.5-5.1); Sodium 137 mmol/L (137-145); Total Bilirubin 1.3 mg/dL (0.2-1.3); Total Protein 7.5 g/dL (6.3-8.2)
--- NOTE | 2021-11-23 08:09 | XR ---
EXAMINATION TYPE: XR chest 2V DATE OF EXAM: 11/23/2021 COMPARISON: Chest x-ray dated 07/07/2021, 06/20/2021 HISTORY: Pneumonia TECHNIQUE: Frontal and lateral views of the chest are obtained. FINDINGS: Patient is post median sternotomy and left atrial appendage clip placement. Cardiac medias tinal silhouette is stable. There are strand-like densities within the lungs which may reflect underl sylwia scarring, interstitial changes, difficult to exclude early airspace disease left midlung. There is no evident pneumothorax or pleural effusion. Aorta is dense. Patient shows post mitral valve repla cement. Increased AP diameter of the chest is seen. Thoracic spondylosis is present. IMPRESSION: Probable scarring versus atelectasis, difficult to exclude an early pneumonia.
[2021-11-23] MEDS ORDERED: ALBUTEROL HFA INHALER INHALATION PRN (08:31)
[2021-11-23] MEDS ORDERED: ALBUTEROL NEBULIZED 1.25 MG/3 ML INHALATION PRN (08:31)
--- NOTE | 2021-11-23 08:35 | P.HPIM ---
History of Present Illness H&P Date: 11/23/21 Chief Complaint: Shortness of breath. This is a history and physical on a 56-year-old white male with known history of history of heart failure with atrial fibrillation in the past. 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 No significant ethanol abuse. He is a nonsmoker at this time. No fever or chills. No nausea, vomiting or diarrhea. Oxygen dependency is noted. Review of Systems Constitutional: Denies chills, Denies fever Eyes: denies blurred vision, denies pain Respiratory: Reports cough, Reports dyspnea Gastrointestinal: Denies abdominal pain, Denies diarrhea, Denies nausea, Denies vomiting Musculoskeletal: Denies myalgias Past Medical History Past Medical History: Atrial Fibrillation, Coronary Artery Disease (CAD), GERD/Reflux, Hyperlipidemia, Hypertension, Pneumonia, Sleep Apnea/CPAP/BIPAP Additional Past Medical History / Comment(s): DIVERTICULITIS. ALEISHA with Cpap use History of Any Multi-Drug Resistant Organisms: None Reported Past Surgical History: Appendectomy, Coronary Bypass/CABG, Heart Catheterization With Stent Additional Past Surgical History / Comment(s): 2018 PCI with stent, 2018 CABG 2 vessel with mitral valve replacement, cardioversion x 3, DYLAN x2, EGD, colonoscopy, stress test done Past Anesthesia/Blood Transfusion Reactions: No Reported Reaction Date of Last Stent Placement:: 01/22/18 Past Psychological History: No Psychological Hx Reported Smoking Status: Former smoker Past Alcohol Use History: None Reported Past Drug Use History: None Reported - Past Family History Father Family Medical History: Congestive Heart Failure (CHF) Additional Family Medical History / Comment(s): Father of CHF at the age of 68yrs. Mother Family Medical History: No Reported History Additional Family Medical History / Comment(s): Mother at the age of 62 or 63 yrs from myasthenia gravis. Brother(s) Family Medical History: Coronary Artery Disease (CAD) Additional Family Medical History / Comment(s): ONE BROTHER HAD CABG Sister(s) Family Medical History: Coronary Artery Disease (CAD) Additional Family Medical History / Comment(s): ONE SISTER HAS HEART STENTS. O NE SISTER HAS HAD CABG Medications and Allergies Home Medications Medication Instructions Recorded Confirmed Type Multivitamin [Men's Multi-Vitamin] 1 tab PO DAILY 01/22/14 11/23/21 History Umeclidinium Brm/Vilanterol Tr 1 puff INHALATION RT-DAILY 07/04/18 11/23/21 History [Anoro Ellipta 62.5-25 Mcg INH] Aspirin 81 mg PO DAILY #30 chew 08/24/18 11/23/21 Rx Atorvastatin [Lipitor] 80 mg PO HS #30 tab 08/24/18 11/23/21 Rx Furosemide [Lasix] 40 mg PO BID 05/20/19 11/23/21 History Losartan [Cozaar] 75 mg PO HS 05/20/19 11/23/21 History Magnesium Oxide [Mag-Ox] 500 mg PO HS 05/20/19 11/23/21 History Sertraline [Zoloft] 50 mg PO DAILY 05/20/19 11/23/21 History carvediloL [Coreg] 12.5 mg PO BID 05/20/19 11/23/21 History Pantoprazole [Protonix] 40 mg PO DAILY 11/08/20 11/23/21 History Warfarin [Coumadin] 5 mg PO SA 11/08/20 11/23/21 History Warfarin [Coumadin] 7.5 mg PO SUMOTUWETHFR 11/08/20 11/23/21 History Albuterol Sulfate [Proair Hfa] 2 puff INHALATION RT-QID PRN 06/20/21 11/23/21 History Inulin/Chromium Picolinate [Fiber 1 tab PO DAILY 06/20/21 11/23/21 History Gummies Chew] Mv-Mn/C/Glutamin/Lysin/[id number] 1 tab PO DAILY 06/20/21 11/23/21 History [Airborne Gummies] [place]-3 Fatty Acids/Fish Oil 1 cap PO DAILY 06/20/21 11/23/21 History [[place]-3 Fish Oil 1,200 mg Sfgl] Albuterol Sulfate 1.25 mg INHALATION RT-Q6H PRN 11/23/21 11/23/21 History Isosorbide Mononitrate ER [Imdur] 30 mg PO DAILY 11/23/21 11/23/21 History Potassium Chloride ER [K-Dur 10] 10 meq PO DAILY 11/23/21 11/23/21 History Allergies Allergy/AdvReac Type Severity Reaction Status Date / Time Penicillins Allergy Unknown Verified 11/23/21 08:16 Childhood Physical Exam Vitals: Vital Signs Temp Pulse Resp BP Pulse Ox 11/23/21 06:44 98.3 F 75 18 149/94 96 Intake and Output 11/22/21 11/23/21 11/23/21 22:59 06:59 14:59 Other: Weight 119.748 kg - Constitutional General appearance: no acute distress - EENT Eyes: EOMI - Neck Neck: no lymphadenopathy - Respiratory Respiratory: bilateral: diminished - Cardiovascular Rhythm: irregularly irregular Heart sounds: normal: S1, S2 Abnormal Heart Sounds: no S3 Gallop - Gastrointestinal General gastrointestinal: no tenderness - Integumentary Integumentary: no cellulitis Results CBC & Chem 7: 11/23/21 07:14 11/23/21 07:14 Labs: Abnormal Lab Results - Last 24 Hours (Table) 11/23/21 11/23/21 Range/Units 07:14 07:14 PT 22.3 H (9.0-12.0) sec INR 2.2 H (<1.2) APTT 33.0 H (22.0-30.0) sec Glucose 149 H (74-99) mg/dL Assessment and Plan (1) Chest pain Current Visit: Yes Status: Acute Code(s): R07.9 - CHEST PAIN, UNSPECIFIED SNOMED Code(s): 79919431 (2) Acute exacerbation of chronic obstructive airways disease Current Visit: No Status: Acute Code(s): J44.1 - CHRONIC OBSTRUCTIVE PULMONARY DISEASE W (ACUTE) EXACERBATION SNOMED Code(s): 432890952 (3) Atrial fibrillation Current Visit: No Status: Acute Code(s): I48.91 - UNSPECIFIED ATRIAL FIBRILLATION SNOMED Code(s): 05517213 (4) CHF (congestive heart failure) Current Visit: No Status: Acute Code(s): I50.9 - HEART FAILURE, UNSPECIFIED SNOMED Code(s): 75095669 (5) Pneumonia Current Visit: No Status: Acute Code(s): J18.9 - PNEUMONIA, UNSPECIFIED ORGANISM SNOMED Code(s): 480890070 (6) Former smoker Current Visit: No Status: Resolved Code(s): Z87.891 - PERSONAL HISTORY OF NICOTINE DEPENDENCE SNOMED Code(s): 6156708 Plan: Continue antibiotic treatment. Reconcile medications. Consul cardiology per Check CBC and CMP in a.m.
[2021-11-23] MEDS ORDERED: CHROMIUM PICOLINATE PO SCH (09:00)
[2021-11-23] MEDS ORDERED: INULIN PO SCH (09:00)
[2021-11-23] MEDS ORDERED: FUROSEMIDE 10 MG/ML 4 ML VIAL IV STA (09:18)
[2021-11-23] MEDS ORDERED: HEPARIN SODIUM 1,000 UN/ML (10ML VL) IV PRN (09:20)
[2021-11-23] MEDS ORDERED: HEPARIN SODIUM 1,000 UN/ML (10ML VL) IV ONE (09:20)
[2021-11-23] MEDS: POTASSIUM CHLORIDE ER 10 MEQ TAB.ER.PRT PO SCH (09:35)
[2021-11-23] MEDS: PANTOPRAZOLE 40 MG TABLET PO SCH (09:35)
[2021-11-23] MEDS: ASPIRIN 81 MG PO SCH (09:41)
[2021-11-23] MEDS: FUROSEMIDE 40 MG TAB PO SCH ×2 (09:41→15:53)
[2021-11-23] MEDS: carvediloL 12.5 MG TAB PO SCH ×2 (09:41→21:03)
[2021-11-23] MEDS: SERTRALINE 50 MG TAB PO SCH (09:42)
[2021-11-23] MEDS: ISOSORBIDE MONONITRATE ER 30 MG TAB.ER.24H PO SCH (09:42)
[2021-11-23] MEDS: HEPARIN SOD,PORK IN 0.45% NACL 25,000 UNIT in 0.45% NACL 1 250ML.BAG IV SCH (11:00)
--- NOTE | 2021-11-23 11:07 | P.CRDCN ---
History of Present Illness Consult date: 11/23/21 History of present illness: HISTORY OF PRESENT ILLNESS: This is a 56-year-old male with a past medical history significant for coronary artery disease with previous CABG and mitral valve replacement with mechanical valve, hypertension, hyperlipidemia, congestive heart failure. Patient follows in the office with Dr. Valles. We have been asked to see the patient in consultation for chest pain. Patient examined at the bedside. Patient states over the past couple days he has not been feeling well. He reports having chest pain in the middle of his chest and also between his shoulder blades. He report feeling SOB as well. * EKG reveals sinus mechanism with right BBB. Left axis deviation. No signs of acute ischemia. * Chest xray probable scarring versus atelectasis, difficult to exclude early pneumonia * Laboratory data: WBC 8.2. Hemoglobin 16.3. Platelet count 189. INR 2.2. Sodium 137. Potassium 3.7. BUN 18. Creatinine 0.70. Magnesium 1.9. Troponin negative 1. ProBNP 60. * Current home cardiac medications include carvedilol 12.5 mg twice a day, warfarin 5 mg on Sunday and 7.5 mg every other day, losartan 75 mg at night, Imdur 30 mg daily, Lasix 40 mg twice a day, Lipitor 80 mg at night, aspirin 81 mg daily * Most recent echocardiogram obtained in November 2020 revealed ejection fraction 50-55% REVIEW OF SYSTEMS: At the time of my exam: CONSTITUTIONAL: Denies fever or chills. HEENT: Denies blurred vision, vision changes, or eye pain. Denies hemoptysis CARDIOVASCULAR: Denies chest pain. Denies orthopnea. Denies PND. Denies palpitations RESPIRATORY: Denies shortness of breath. GASTROINTESTINAL: Denies abdominal pain. Denies nausea or vomiting. HEMATOLOGIC: Denies bleeding disorders. GENITOURINARY: Denies any blood in urine. SKIN: Denies pruitis. Denies rash. PHYSICAL EXAM: VITAL SIGNS: Reviewed. GENERAL: Well-developed in no acute distress. HEENT: Head is normocephalic. Pupils are equal, round. Sclerae anicteric. Mucous membranes of the mouth are moist. Neck supple. No JVD or thyromegaly LUNGS: Respirations even and unlabored. Lungs diminished to auscultation bilaterally. HEART: Regular rate and rhythm. S1 and S2 heard. ABDOMEN: Soft. Nondistended. Nontender. EXTREMITIES: Normal range of motion. No clubbing or cyanosis. Peripheral pulses intact. No lower extremity edema NEUROLOGIC: Awake and alert. Oriented x 3. ASSESSMENT: Shortness of breath Chest pain Coronary artery disease with previous CABG and mitral valve replacement with mechanical valve Hypertension Hyperlipidemia Chronic congestive heart failure with preserved ejection fraction with possible mild exacerbation PLAN: An acute coronary event has been ruled out Resume home cardiac medications Begin IV heparin until INR is 2.5 or greater Obtain CTA chest to assess aorta Give one dose of IV lasix 40mg Further recommendations pending patient course Nurse practitioner note has been reviewed by physician. Signing provider agrees with the documented findings, assessment, and plan of care. Past Medical History Past Medical History: Atrial Fibrillation, Coronary Artery Disease (CAD), GERD/Reflux, Hyperlipidemia, Hypertension, Pneumonia, Sleep Apnea/CPAP/BIPAP Additional Past Medical History / Comment(s): DIVERTICULITIS. ALEISHA with Cpap use History of Any Multi-Drug Resistant Organisms: None Reported Past Surgical History: Appendectomy, Coronary Bypass/CABG, Heart Catheterization With Stent Additional Past Surgical History / Comment(s): 2018 PCI with stent, 2018 CABG 2 vessel with mitral valve replacement, cardioversion x 3, DYLAN x2, EGD, colonoscopy, stress test done Past Anesthesia/Blood Transfusion Reactions: No Reported Reaction Date of Last Stent Placement:: 01/22/18 Past Psychological History: No Psychological Hx Reported Smoking Status: Former smoker Past Alcohol Use History: None Reported Past Drug Use History: None Reported - Past Family History Father Family Medical History: Congestive Heart Failure (CHF) Additional Family Medical History / Comment(s): Father of CHF at the age of 68yrs. Mother Family Medical History: No Reported History Additional Family Medical History / Comment(s): Mother at the age of 62 or 63 yrs from myasthenia gravis. Brother(s) Family Medical History: Coronary Artery Disease (CAD) Additional Family Medical History / Comment(s): ONE BROTHER HAD CABG Sister(s) Family Medical History: Coronary Artery Disease (CAD) Additional Family Medical History / Comment(s): ONE SISTER HAS HEART STENTS. ONE SISTER HAS HAD CABG Medications and Allergies Home Medications Medication Instructions Recorded Confirmed Type Multivitamin [Men's Multi-Vitamin] 1 tab PO DAILY 01/22/14 11/23/21 History Umeclidinium Brm/Vilanterol Tr 1 puff INHALATION RT-DAILY 07/04/18 11/23/21 History [Anoro Ellipta 62.5-25 Mcg INH] Aspirin 81 mg PO DAILY #30 chew 08/24/18 11/23/21 Rx Atorvastatin [Lipitor] 80 mg PO HS #30 tab 08/24/18 11/23/21 Rx Furosemide [Lasix] 40 mg PO BID 05/20/19 11/23/21 History Losartan [Cozaar] 75 mg PO HS 05/20/19 11/23/21 History Magnesium Oxide [Mag-Ox] 500 mg PO HS 05/20/19 11/23/21 History Sertraline [Zoloft] 50 mg PO DAILY 05/20/19 11/23/21 History carvediloL [Coreg] 12.5 mg PO BID 05/20/19 11/23/21 History Pantoprazole [Protonix] 40 mg PO DAILY 11/08/20 11/23/21 History Albuterol Sulfate [Proair Hfa] 2 puff INHALATION RT-QID PRN 06/20/21 11/23/21 History Inulin/Chromium Picolinate [Fiber 1 tab PO DAILY 06/20/21 11/23/21 History Gummies Chew] Mv-Mn/C/Glutamin/Lysin/[id number] 1 tab PO DAILY 06/20/21 11/23/21 History [Airborne Gummies] [place]-3 Fatty Acids/Fish Oil 1 cap PO DAILY 06/20/21 11/23/21 History [[place]-3 Fish Oil 1,200 mg Sfgl] Albuterol Sulfate 1.25 mg INHALATION RT-Q6H PRN 11/23/21 11/23/21 History Isosorbide Mononitrate ER [Imdur] 30 mg PO DAILY 11/23/21 11/23/21 History Potassium Chloride ER [K-Dur 10] 10 meq PO DAILY 11/23/21 11/23/21 History Warfarin [Coumadin] 7.5 mg PO DAILY #90 tab 11/24/21 Rx Allergies Allergy/AdvReac Type Severity Reaction Status Date / Time Penicillins Allergy Unknown Verified 11/23/21 08:16 Childhood Physical Exam Vitals: Vital Signs Temp Pulse Resp BP Pulse Ox 11/23/21 06:44 98.3 F 75 18 149/94 96 Intake and Output 11/22/21 11/23/21 11/23/21 22:59 06:59 14:59 Other: Weight 119.748 kg Results 11/24/21 06:28 11/24/21 06:28 Cardiac Enzymes 11/23/21 11/23/21 Range/Units 07:14 07:14 AST 31 (17-59) U/L Troponin I 0.027 (0.000-0.034) ng/mL Coagulation 11/23/21 Range/Units 07:14 PT 22.3 H (9.0-12.0) sec APTT 33.0 H (22.0-30.0) sec CBC 11/23/21 Range/Units 07:14 WBC 8.2 (3.8-10.6) k/uL RBC 5.20 (4.30-5.90) m/uL Hgb 16.3 (13.0-17.5) gm/dL Hct 47.9 (39.0-53.0) % Plt Count 199 (150-450) k/uL Comprehensive Metabolic Panel 11/23/21 Range/Units 07:14 Sodium 137 (137-145) mmol/L Potassium 3.7 (3.5-5.1) mmol/L Chloride 104 (98-107) mmol/L Carbon Dioxide 25 (22-30) mmol/L BUN 18 (9-20) mg/dL Creatinine 0.70 (0.66-1.25) mg/dL Glucose 149 H (74-99) mg/dL Calcium 9.4 (8.4-10.2) mg/dL AST 31 (17-59) U/L ALT 31 (4-49) U/L Alkaline Phosphatase 96 (38-126) U/L Total Protein 7.5 (6.3-8.2) g/dL Albumin 4.5 (3.5-5.0) g/dL Current Medications Generic Name Dose Route Start Last Admin Trade Name Freq PRN Reason Stop Dose Admin Albuterol Sulfate 1.25 mg 11/23/21 08:31 Albuterol Nebulized 1.25 Mg/3 Ml INHALATION RT-Q6H PRN Shortness Of Breath Albuterol Sulfate 2 puff 11/23/21 08:31 Albuterol Hfa Inhaler INHALATION RT-QID PRN Shortness Of Breath Aspirin 81 mg 11/23/21 09:00 11/23/21 09:41 Aspirin 81 Mg PO Not Given DAILY [facility] Atorvastatin Calcium 80 mg 11/23/21 21:00 Atorvastatin 80 Mg Tab PO HS [facility] Carvedilol 12.5 mg 11/23/21 09:00 11/23/21 09:41 Carvedilol 12.5 Mg Tab PO Not Given BID [facility] Formoterol Fumarate 20 mcg 11/24/21 08:00 Formoterol Fumarate 20 Mcg/2 Ml Nebu INHALATION RT-BID [facility] Furosemide 40 mg 11/23/21 09:00 11/23/21 09:41 Furosemide 40 Mg Tab PO Not Given BID@0900,1600 [facility] Heparin Sodium (Porcine) 0 unit 11/23/21 09:20 Heparin Sodium 1,000 Un/Ml (10ml Vl) IV PER PROTOCOL PRN Low PTT Protocol Heparin Sodium/Sodium Chloride 250 mls @ 14.37 mls/hr 11/23/21 09:30 25,000 unit/ Sodium Chloride IV .[id number] [facility] Protocol 12 UNITS/KG/HR Ipratropium [place] 0.5 mg 11/24/21 08:00 Ipratropium 0.5 Mg/2.5 Ml Nebu INHALATION RT-QID [facility] Isosorbide Mononitrate 30 mg 11/23/21 09:00 11/23/21 09:42 Isosorbide Mononitrate Er 30 Mg Tab.Er.24h PO Not Given DAILY [facility] Losartan Potassium 75 mg 11/23/21 21:00 Losartan 25 Mg Tab PO HS [facility] Magnesium Oxide 400 mg 11/23/21 21:00 Magnesium Oxide 400 Mg Tab PO [facility] Miscellaneous Information 0 each 11/23/21 09:34 Warfarin Per Pharmacy MISCELLANE DIRECTED PRN Per Protocol Nitroglycerin 0.4 mg 11/23/21 08:29 Nitroglycerin Sl Tabs 0.4 Mg Tab SUBLINGUAL Q5M PRN Chest Pain Pantoprazole Sodium 40 mg 11/23/21 09:00 11/23/21 09:35 Pantoprazole 40 Mg Tablet PO 40 mg DAILY@0730 [facility] Administration Potassium Chloride 10 meq 11/23/21 09:00 11/23/21 09:35 Potassium Chloride Er 10 Meq Tab.Er.Prt PO 10 meq DAILY [facility] Administration Sertraline HCl 50 mg 11/23/21 09:00 11/23/21 09:42 Sertraline 50 Mg Tab PO Not Given DAILY [facility] Warfarin Sodium 7.5 mg 11/23/21 18:00 Warfarin 7.5 Mg Tab PO SuMoTuWeThFr@1800 [facility] Protocol Warfarin Sodium 5 mg 11/26/21 18:00 Warfarin 5 Mg Tab PO Sa@1800 [facility] Protocol Intake and Output 11/22/21 11/23/21 11/23/21 22:59 06:59 14:59 Other: Weight 119.748 kg 11/23/21 07:14 11/23/21 07:14
--- NOTE | 2021-11-23 11:52 | CT ---
EXAMINATION TYPE: CT angio chest DATE OF EXAM: 11/23/2021 COMPARISON: CT chest 06/05/2019 HISTORY: Chest and back pain CT DLP: 1025.2 mGycm Automated exposure control for dose reduction was used. CONTRAST: CTA scan of the thorax is performed with IV Contrast, patient injected with 100 mL of Isovue 370, pul monary embolism protocol. MIP images are created and reviewed. 3D reconstructed images are created on an independent workstation and reviewed. FINDINGS: LUNGS: The lungs show interstitial changes, there are areas of pleural thickening, interlobular septa l pleural lines are noted, there is no concerning parenchymal mass or nodule identified. Subpleural honeycombing is present, probable scar present at the posterior lung base on the left There is no ple ural effusion or pneumothorax seen. The tracheobronchial tree is patent. AORTA: No significant interval change is seen. Atheromatous changes are present within the aorta, no evident aneurysm or dissection. MEDIASTINUM: There is satisfactory enhancement of the pulmonary artery and its branches, there is no CT evidence for pulmonary embolism. There are no greater than 1 cm hilar or mediastinal lymph nodes. No pericardial effusion is seen. Coronary artery calcifications are present. Comments of pulmonary artery again noted, correlate for pulmonary artery hypertension. Metallic density present at the lat eral annular level. OTHER: Patient is post median sternotomy and coronary artery bypass graft. Thoracic spondylosis is p resent.. IMPRESSION: NO ACUTE FINDING. Suspect pulmonary fibrosis. Postop changes. Correlate for pulmonary artery hyperten terrell. No evident pulmonary embolism. No aortic aneurysm.
[2021-11-23] MEDS: NITROGLYCERIN SL TABS 0.4 MG TAB SUBLINGUAL PRN ×2 (12:06→12:12)
[2021-11-23] MEDS: HYDROcodone/APAP 5-325MG 1 EACH TAB PO PRN ×2 (12:35→19:16)
[2021-11-23] MEDS: IPRATROPIUM 0.5 MG/2.5 ML NEBU INHALATION SCH (15:14)
[2021-11-23] MEDS ORDERED: WARFARIN 7.5 MG TAB PO SCH (18:00)
[2021-11-23] MEDS ORDERED: ATORVASTATIN 80 MG TAB PO SCH (21:00)
[2021-11-23] MEDS ORDERED: MAGNESIUM OXIDE 400 MG TAB PO SCH (21:00)
[2021-11-23] MEDS ORDERED: LOSARTAN 25 MG TAB PO SCH (21:00)
[2021-11-24] MEDS: HEPARIN SOD,PORK IN 0.45% NACL 25,000 UNIT in 0.45% NACL 1 250ML.BAG IV SCH (04:30)
[2021-11-24] MEDS: ISOSORBIDE MONONITRATE ER 30 MG TAB.ER.24H PO SCH (07:59)
[2021-11-24] MEDS: ASPIRIN 81 MG PO SCH (07:59)
[2021-11-24] MEDS: carvediloL 12.5 MG TAB PO SCH (07:59)
[2021-11-24] MEDS: SERTRALINE 50 MG TAB PO SCH (07:59)
[2021-11-24] MEDS: FUROSEMIDE 40 MG TAB PO SCH (07:59)
[2021-11-24] MEDS: PANTOPRAZOLE 40 MG TABLET PO SCH (07:59)
[2021-11-24] MEDS: POTASSIUM CHLORIDE ER 10 MEQ TAB.ER.PRT PO SCH (07:59)
[2021-11-24] MEDS ORDERED: FORMOTEROL FUMARATE 20 MCG/2 ML NEBU INHALATION SCH (08:00)
[2021-11-24 08:56] VITALS: BP 136/78; RESP 16; TEMP 97.5
[2021-11-24 08:56] LABS: Basophils # (A) 0.07 X 10*3/uL (0.00-0.10); Basophils % (A) 1.1 %; Eosinophils # (A) 0.27 X 10*3/uL (0.04-0.35); Eosinophils % (A) 4.1 %; HCT 43.8 % (39.6-50.0); HGB 14.3 g/dL (13.0-17.0); Immature Grans, Automated 0.2 %; Lymphocytes # (A) 1.58 X 10*3/uL (0.90-5.00); Lymphocytes % (A) 24.2 %; MCH 29.8 pg (27.0-32.0); MCHC 32.6 g/dL (32.0-37.0); MCV 91.3 fL (80.0-97.0); Mean Platelet Volume 11.2 fL (9.5-12.2); Monocytes % (A) 13.8 %; NRBC Per 100 WBC 0 /100 WBCS (0.0-0.0); Neutrophils # (A) 3.69 X 10*3/uL (1.80-7.70); Neutrophils % (A) 56.6 %; Platelet Count 176 X 10*3/uL (140-440); RDW 12.4 % (11.5-14.5); WBC 6.52 X 10*3/uL (4.50-10.00)
[2021-11-24 09:09] LABS: ALT 29 U/L (10-49); AST 26 U/L (14-35); African American GFR (CKD) 120.6 (60.0-200.0); Albumin 4.4 g/dL (3.8-4.9); Alkaline Phosphatase 79 U/L (41-126); BUN/Creat Ratio 17.71 Ratio (12.00-20.00); Blood Urea Nitrogen 12.4 mg/dL (9.0-27.0); Calcium 9.3 mg/dL (8.7-10.3); Carbon Dioxide 26.5 mmol/L (20.0-27.5); Chloride 101 mmol/L (96-109); Chol/HDL Ratio 2.76 Ratio; Glucose 119 mg/dL (70-110); LDL Cholesterol,Calculated 70.2 mg/dL (0.0-131.0); Potassium 4.2 mmol/L (3.5-5.5); Sodium 138 mmol/L (135-145); Total Protein 6.4 g/dL (6.2-8.2)
[2021-11-24] MEDS: IPRATROPIUM 0.5 MG/2.5 ML NEBU INHALATION SCH ×2 (09:10→12:43)
[2021-11-24] MEDS ORDERED: FUROSEMIDE 20 MG TAB PO ONE (09:15)
--- NOTE | 2021-11-24 10:09 | P.PN ---
Subjective Patient is resting comfortably in a chair. He is definitely less short of breath today No chest discomfort no back discomfort today No JVD S1 is crisp, metallic sound Lungs are clear No S3 gallop Yesterday he was complaining of pain between the shoulder blades. No evidence for aortic dissection Vitals are stable pulse rate in the 70s Blood pressure 136/78 mmHg Impression Coronary artery disease coronary artery bypass grafting Mechanical mitral valve Hypertension, dyslipidemia Acute on chronic diastolic heart failure with improvement Plan Continue all other medications as before INR is therapeutic but since he is a mechanical valve the goal should be somewhere between 2.5-3.2 Recommend increasing the dose of Coumadin Follow Dr. Valles next week Recommend increasing her home dose of Lasix to 16 g twice daily Objective - Vital Signs Vital signs: Vital Signs Temp 97.5 F L 11/24/21 07:00 Pulse 74 11/24/21 09:28 Resp 16 11/24/21 07:00 BP 136/78 11/24/21 07:00 Pulse Ox 95 11/24/21 09:10 Intake & Output 11/23/21 11/24/21 11/24/21 18:59 06:59 18:59 Intake Total 740 486 Balance 740 486 Weight 119.748 kg Intake: Intake, IV Titration 24 250 Amount Heparin Sod,Pork in 0.45% 24 250 NaCl 25,000 unit In 0.45 % NaCl 1 250ml.bag @ 12 UNITS/KG/HR 14.37 mls/hr IV .[id number] SAMANTHA Rx#: [id number] Oral 716 236 Other: # Voids 1 2 - Labs CBC & Chem 7: 11/24/21 06:28 11/24/21 06:28 Labs: Abnormal Lab Results - Last 24 Hours (Table) 11/23/21 11/24/21 11/24/21 Range/Units 16:51 06:28 06:28 APTT 59.5 H 62.8 H (22.0-30.0) sec Glucose 119 H (70-110) mg/dL
[2021-11-24 10:46] LABS: INR 2.2 (0.90-1.11); Prothrombin Time 23.9 sec (9.9-11.9)
[2021-11-24 12:51] VITALS: PULSE 84
--- NOTE | 2021-11-24 13:20 | P.DS ---
Providers Date of admission: 11/23/21 08:38 Attending physician: Chandler Valderrama Consults: 11/23/21 08:29 Consult Physician Urgent Consulting Provider: Michael Jean-Baptiste Consult Reason/Comments: chest pain Do you want consulting provider notified?: Yes Primary care physician: Chandler Valderrama - Discharge Diagnosis(es) (1) Chest pain Current Visit: Yes Status: Acute (2) Acute exacerbation of chronic obstructive airways disease Current Visit: No Status: Acute (3) Atrial fibrillation Current Visit: No Status: Acute (4) CHF (congestive heart failure) Current Visit: No Status: Acute (5) Pneumonia Current Visit: No Status: Acute (6) Former smoker Current Visit: No Status: Resolved Hospital Course: This discharge summary 56-year-old white male history of paroxysmal atrial fibrillation and weakness. Came in with significant shortness of breath. Pneumonia on the chest x-ray and cardiology was consulted to appropriately evaluate his cardiac status. The patient was stabilized Lasix was increased and the patient had appropriate diuresis. No oxygen dependency was noted on discharge as was stated on his admission. The patient is voiding without difficulty tolerating diet and will follow-up to see me in about 5-7 days. Patient Condition at Discharge: Fair Plan - Discharge Summary Discharge Rx Participant: Yes New Discharge Prescriptions: New Warfarin [Coumadin] 7.5 mg PO DAILY #90 tab Furosemide [Lasix] 60 mg PO BID@0900,1600 #60 tab Azithromycin [Zithromax Z-pack (6 tabs)] 0 mg PO DIRECTED 5 Days #6 tab Continue Multivitamin [Men's Multi-Vitamin] 1 tab PO DAILY Umeclidinium Brm/Vilanterol Tr [Anoro Ellipta 62.5-25 Mcg INH] 1 puff INHALATION RT-DAILY Aspirin 81 mg PO DAILY #30 chew Atorvastatin [Lipitor] 80 mg PO HS #30 tab Sertraline [Zoloft] 50 mg PO DAILY Magnesium Oxide [Mag-Ox] 500 mg PO HS Losartan [Cozaar] 75 mg PO HS carvediloL [Coreg] 12.5 mg PO BID Pantoprazole [Protonix] 40 mg PO DAILY Mv-Mn/C/Glutamin/Lysin/[id number] [Airborne Gummies] 1 tab PO DAILY Isosorbide Mononitrate ER [Imdur] 30 mg PO DAILY Albuterol Sulfate [Proair Hfa] 2 puff INHALATION RT-QID PRN PRN Reason: Shortness Of Breath Inulin/Chromium Picolinate [Fiber Gummies Chew] 1 tab PO DAILY [place]-3 Fatty Acids/Fish Oil [[place]-3 Fish Oil 1,200 mg Sfgl] 1 cap PO DAILY Albuterol Sulfate 1.25 mg INHALATION RT-Q6H PRN PRN Reason: Shortness Of Breath Potassium Chloride ER [K-Dur 10] 10 meq PO DAILY Discontinued Furosemide [Lasix] 40 mg PO BID Warfarin [Coumadin] 5 mg PO SA Warfarin [Coumadin] 7.5 mg PO SUMOTUWETHFR Discharge Medication List Multivitamin [Men's Multi-Vitamin] 1 tab PO DAILY 01/22/14 [History] Umeclidinium Brm/Vilanterol Tr [Anoro Ellipta 62.5-25 Mcg INH] 1 puff INHALATION RT-DAILY 07/04/18 [History] Aspirin 81 mg PO DAILY #30 chew 08/24/18 [Rx] Atorvastatin [Lipitor] 80 mg PO HS #30 tab 08/24/18 [Rx] Losartan [Cozaar] 75 mg PO HS 05/20/19 [History] Magnesium Oxide [Mag-Ox] 500 mg PO HS 05/20/19 [History] Sertraline [Zoloft] 50 mg PO DAILY 05/20/19 [History] carvediloL [Coreg] 12.5 mg PO BID 05/20/19 [History] Pantoprazole [Protonix] 40 mg PO DAILY 11/08/20 [History] Albuterol Sulfate [Proair Hfa] 2 puff INHALATION RT-QID PRN 06/20/21 [History] Inulin/Chromium Picolinate [Fiber Gummies Chew] 1 tab PO DAILY 06/20/21 [History] Mv-Mn/C/Glutamin/Lysin/[id number] [Airborne Gummies] 1 tab PO DAILY 06/20/21 [History] [place]-3 Fatty Acids/Fish Oil [[place]-3 Fish Oil 1,200 mg Sfgl] 1 cap PO DAILY 06/20/21 [History] Albuterol Sulfate 1.25 mg INHALATION RT-Q6H PRN 11/23/21 [History] Isosorbide Mononitrate ER [Imdur] 30 mg PO DAILY 11/23/21 [History] Potassium Chloride ER [K-Dur 10] 10 meq PO DAILY 11/23/21 [History] Azithromycin [Zithromax Z-pack (6 tabs)] 0 mg PO DIRECTED 5 Days #6 tab 11/24/21 [Rx] Furosemide [Lasix] 60 mg PO BID@0900,1600 #60 tab 11/24/21 [Rx] Warfarin [Coumadin] 7.5 mg PO DAILY #90 tab 11/24/21 [Rx] Follow up Appointment(s)/Referral(s): Chandler Valderrama MD [Primary Care Provider] - 1-2 days
[2021-11-24] MEDS ORDERED: FUROSEMIDE 20 MG TAB PO SCH (16:00)
[2021-11-26] MEDS ORDERED: WARFARIN 5 MG TAB PO SCH (18:00)
== END 2021-11-24 13:45 | disposition home or self-care (01) ==
LOC: EC 06:40 → 6NMEDSUR 08:38
PROVIDERS: ADMIT Family Medicine; ATTEND Family Medicine
DX: R07.89 Other chest pain (principal); J44.1 Chronic obstructive pulmonary disease with (acute) exacerbation; J44.0 Chronic obstructive pulmonary disease with (acute) lower respiratory infection; J18.9 Pneumonia, unspecified organism; I48.0 Paroxysmal atrial fibrillation; I11.0 Hypertensive heart disease with heart failure; I50.33 Acute on chronic diastolic (congestive) heart failure; I25.10 Atherosclerotic heart disease of native coronary artery without angina pectoris; E78.5 Hyperlipidemia, unspecified; G47.33 Obstructive sleep apnea (adult) (pediatric); K21.9 Gastro-esophageal reflux disease without esophagitis; K57.92 Diverticulitis of intestine, part unspecified, without perforation or abscess without bleeding; I45.10 Unspecified right bundle-branch block; Z87.891 Personal history of nicotine dependence; Z87.01 Personal history of pneumonia (recurrent); Z95.1 Presence of aortocoronary bypass graft; Z95.5 Presence of coronary angioplasty implant and graft; Z95.2 Presence of prosthetic heart valve; Z99.81 Dependence on supplemental oxygen; Z79.82 Long term (current) use of aspirin; Z79.899 Other long term (current) drug therapy; Z79.01 Long term (current) use of anticoagulants; Z88.0 Allergy status to penicillin; Z82.49 Family history of ischemic heart disease and other diseases of the circulatory system; Z82.69 Family history of other diseases of the musculoskeletal system and connective tissue
CPT/HCPCS: 96366 ×3; 96376; 96365; 96367; 96375; 99285; 36415; 94640 ×3; 94760; 93005; 83880; 80061; 80053 ×2; 83735; 84484; 85025 ×2; 85610 ×2; 85730 ×2; 87040; 71046; 71275; G0378 ×2; J2270; J2405; J0696; J1644 ×3; Q9967

== ENCOUNTER → 2021-12-06 | Outpatient (CLI) | payer OTHER ==
--- NOTE | 2021-12-06 10:38 | XR ---
EXAMINATION TYPE: XR Hip Complete LT DATE OF EXAM: 12/06/2021 COMPARISON: None available INDICATION: 56-year-old male, slipped and fell off the ladder TECHNIQUE: Standard 2 views of the left hip. FINDINGS: Grossly unremarkable left hip joint. No dislocation or significant subluxation. No definite acute fra cture line identified. Arterial atherosclerotic calcifications. Left pelvic phleboliths. IMPRESSION: No definite acute left hip fracture or dislocation.
--- NOTE | 2021-12-06 10:43 | XR ---
Left knee HISTORY: Trauma yesterday and pain 3 views of the left knee Chondrocalcinosis is noted. There are surgical clips in the medial left thigh soft tissues. Alignment and bone mineralization, joint spaces are maintained. Some questionable sclerosis along the proximal metaphysis of the left tibia. Bony excrescence along the medial metaphysis of the distal left femur is well-corticated, chronic. Suprapatellar increased density is consistent with joint effusion. There is some spurring at the patellofemoral joint and medial compartment. impression: Soft tissue injury is suspected, there is joint effusion, there may be underlying crystal deposition arthropathy, osteoarthritis. Difficult to exclude underlying microtrabecular fractures pr oximal left tibia, knee MRI may be of benefit. Bony excrescence medial distal femur may be indicative of Magnus-Stieda lesion.
== END | disposition home or self-care (01) ==
LOC: RADXRMAIN 09:46
PROVIDERS: ATTEND Emergency Medicine
DX: S73.102A Unspecified sprain of left hip, initial encounter (principal); M25.462 Effusion, left knee; W01.0XXA Fall on same level from slipping, tripping and stumbling without subsequent striking against object, initial encounter
CPT/HCPCS: 73502

== ENCOUNTER 2022-07-29 19:10 | Inpatient (IN) | payer BC, OTHER ==
[2022-07-29] MEDS ORDERED: fentaNYL (PF) 50 MCG/ML 2 ML AMP IVP PRN (19:58)
[2022-07-29] MEDS ORDERED: FUROSEMIDE 10 MG/ML 10 ML VIAL IV STA (19:58)
[2022-07-29 20:14] LABS: HCT 40.8 % (39.0-53.0); HGB 14.6 gm/dL (13.0-17.5); MCH 31.6 pg (25.0-35.0); MCHC 35.8 g/dL (31.0-37.0); MCV 88.2 fL (80.0-100.0); Mean Platelet Volume 9.2; Platelet Count 243 k/uL (150-450); RBC 4.62 m/uL (4.30-5.90); RDW 12.6 % (11.5-15.5); WBC 8.7 k/uL (3.8-10.6)
[2022-07-29 20:19] LABS: ALT 55 U/L (4-49); AST 51 U/L (17-59); African American GFR (CKD) >90 (>60 ml/min/1.73 sqM); Albumin 4.5 g/dL (3.5-5.0); Alkaline Phosphatase 159 U/L (38-126); Anion Gap 11 mmol/L; Blood Urea Nitrogen 15 mg/dL (9-20); Calcium 8.8 mg/dL (8.4-10.2); Carbon Dioxide 22 mmol/L (22-30); Chloride 101 mmol/L (98-107); Glucose 216 mg/dL (74-99); Magnesium 1.8 mg/dL (1.6-2.3); Non-African American GFR(CKD) 80 (>60 ml/min/1.73 sqM); Sodium 134 mmol/L (137-145); Total Bilirubin 0.7 mg/dL (0.2-1.3)
[2022-07-29 20:38] LABS: INR 2.6 (<1.2); Partial Thromboplastin Time 37.1 sec (22.0-30.0); Prothrombin Time 25.9 sec (9.0-12.0)
[2022-07-29 20:53] LABS: Basophils # (M) 0.09 k/uL (0-0.2); Eosinophils # (M) 0.09 k/uL (0-0.7); Lymphocytes # (M) 2.61 k/uL (1.0-4.8); Monocytes # (M) 0.61 k/uL (0-1.0); Neutrophils # (M) 5.31 k/uL (1.3-7.7); Neutrophils % (M) 61 %; Nucleated Red Blood Cells 0 /100 WBC (0-0); Total Cells Counted 100
[2022-07-29 20:54] LABS: RBC Morphology Normal
--- NOTE | 2022-07-29 21:03 | CT ---
EXAMINATION TYPE: CT angio thor/abd pel aorta DATE OF EXAM: 07/29/2022 COMPARISON: 12/12/2017 HISTORY: Chest pain and difficulty breathing. CT DLP: 3833.8 mGycm Automated exposure control for dose reduction was used. CONTRAST: Performed without and with IV Contrast, patient injected with 100ml mL of Isovue 370. Coarse interstitial density in the lung santamaria bilaterally. Heart is enlarged. No pericardial effusio n. No mediastinal adenopathy. There are no hilar masses. Thoracic aorta appears intact. No aneurysm. No dissection. No evidence of filling defect in the pulmonary arteries. There is small left pleural e ffusion. There is diffuse fatty infiltration of the liver. Spleen and stomach pancreas gallbladder appear inta ct. The bowel is not dilated. There is no adrenal mass. Kidneys of normal size. No hydronephrosis. Ureters are not dilated. No retr operitoneal adenopathy. The bladder distends smoothly. No inguinal hernia. There is small bilateral f at-containing inguinal hernias. No pelvic mass. No free fluid in the pelvis. There are some sigmoid d iverticula. No diverticulitis. There is arterial flow in the abdominal aorta and the celiac artery and superior mesenteric artery. T here is arterial flow in the renal and iliac and femoral arteries. There is 3.3 cm aneurysm of the mi dabdominal aorta. The lower abdominal aorta measures up to 3.5 cm. No dissection. There is diffuse at herosclerotic plaque formation. There is estimates stenosis of up to 50% in the iliac arteries. The thoracic and lumbar vertebra. Intact. No compression fracture. There are sternal wires. Sternum i s intact. No retrosternal mass. The bony pelvis is intact. The hip joints are intact. IMPRESSION: Atherosclerotic vascular disease. No arterial dissection. 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 Aneurysm slightly increased compared to old CT scan. Sigmoid diverticulosis without diverticulitis. Interstitial pulmonary fibrotic changes. Small left pleural effusion. Cardiomegaly. Congestive heart failure is possible. No significant change.
[2022-07-29 21:35] LABS: Alcohol 179 mg/dL
[2022-07-29] MEDS ORDERED: SODIUM CHLORIDE 0.9% 1,000 ML IV ONE (21:53)
--- NOTE | 2022-07-29 22:29 | ED ---
General Adult HPI - General Chief complaint: Chest Pain Stated complaint: chest pain, SOB Time Seen by Provider: 07/29/22 19:39 Source: patient Mode of arrival: ambulatory Limitations: no limitations - History of Present Illness Initial comments: This is a 57-year-old male with an extensive past medical history including coronary artery disease status post bypass 2, congestive heart failure, mitral valve replacement on Coumadin presented emergency department via EMS for chest pain and soreness of breath. The patient stated that he started to have sternal chest pain that radiated to the back earlier this evening and had associated significant shortness of breath. The patient stated that it felt like his previous congestive heart failure episodes where he was fluid overloaded. The patient also stated that he was mildly diaphoretic earlier today. The patient did state that he had a poor diet over the last several days including high sodium foods. The patient was speaking in 1-2 word sentences secondary to shortness of breath. The patient stated that the chest pain was persistent and had not changed. The patient was resting in bed in mild distress secondary to pain as well as respiratory distress. - Related Data Home Medications Medication Instructions Recorded Confirmed Multivitamin [Men's Multi-Vitamin] 1 tab PO DAILY 01/22/14 11/23/21 Umeclidinium Brm/Vilanterol Tr 1 puff INHALATION RT-DAILY 07/04/18 11/23/21 [Anoro Ellipta 62.5-25 Mcg INH] Losartan [Cozaar] 75 mg PO HS 05/20/19 11/23/21 Magnesium Oxide [Mag-Ox] 500 mg PO HS 05/20/19 11/23/21 Sertraline [Zoloft] 50 mg PO DAILY 05/20/19 11/23/21 carvediloL [Coreg] 12.5 mg PO BID 05/20/19 11/23/21 Pantoprazole [Protonix] 40 mg PO DAILY 11/08/20 11/23/21 Albuterol Sulfate [Proair Hfa] 2 puff INHALATION RT-QID PRN 06/20/21 11/23/21 Inulin/Chromium Picolinate [Fiber 1 tab PO DAILY 06/20/21 11/23/21 Gummies Chew] Mv-Mn/C/Glutamin/Lysin/[id number] 1 tab PO DAILY 06/20/21 11/23/21 [Airborne Gummies] [place]-3 Fatty Acids/Fish Oil 1 cap PO DAILY 06/20/21 11/23/21 [[place]-3 Fish Oil 1,200 mg Sfgl] Albuterol Sulfate 1.25 mg INHALATION RT-Q6H PRN 11/23/21 11/23/21 Isosorbide Mononitrate ER [Imdur] 30 mg PO DAILY 11/23/21 11/23/21 Potassium Chloride ER [K-Dur 10] 10 meq PO DAILY 11/23/21 11/23/21 Previous Rx's Medication Instructions Recorded Aspirin 81 mg PO DAILY #30 chew 08/24/18 Atorvastatin [Lipitor] 80 mg PO HS #30 tab 08/24/18 Azithromycin [Zithromax Z-pack (6 0 mg PO DIRECTED 5 Days #6 tab 11/24/21 tabs)] Furosemide [Lasix] 60 mg PO BID@0900,1600 #60 tab 11/24/21 Warfarin [Coumadin] 7.5 mg PO DAILY #90 tab 11/24/21 Allergies Allergy/AdvReac Type Severity Reaction Status Date / Time Penicillins Allergy Unknown Verified 07/29/22 19:16 Childhood Review of Systems ROS Statement: Those systems with pertinent positive or pertinent negative responses have been documented in the HPI. ROS Other: All systems not noted in ROS Statement are negative. Past Medical History Past Medical History: Atrial Fibrillation, Coronary Artery Disease (CAD), GERD/Reflux, Hyperlipidemia, Hypertension, Pneumonia, Sleep Apnea/CPAP/BIPAP Additional Past Medical History / Comment(s): DIVERTICULITIS. ALEISHA with Cpap use History of Any Multi-Drug Resistant Organisms: None Reported Past Surgical History: Appendectomy, Coronary Bypass/CABG, Heart Catheterization With Stent Additional Past Surgical History / Comment(s): 2018 PCI with stent, 2018 CABG 2 vessel with mitral valve replacement, cardioversion x 3, DYLAN x2, EGD, colonoscopy, stress test done Past Anesthesia/Blood Transfusion Reactions: No Reported Reaction Date of Last Stent Placement:: 01/22/18 Past Psychological History: No Psychological Hx Reported Smoking Status: Former smoker Past Alcohol Use History: None Reported, Occasional Past Drug Use History: None Reported - Past Family History Father Family Medical History: Congestive Heart Failure (CHF) Additional Family Medical History / Comment(s): Father of CHF at the age of 68yrs. Mother Family Medical History: No Reported History Additional Family Medical History / Comment(s): Mother at the age of 62 or 63 yrs from myasthenia gravis. Brother(s) Family Medical History: Coronary Artery Disease (CAD) Additional Family Medical History / Comment(s): ONE BROTHER HAD CABG Sister(s) Family Medical History: Coronary Artery Disease (CAD) Additional Family Medical History / Comment(s): ONE SISTER HAS HEART STENTS. ONE SISTER HAS HAD CABG General Exam Limitations: no limitations General appearance: anxious, in distress (Respiratory distress speaking in 1-2 word sentences) Head exam: Present: atraumatic, normocephalic Eye exam: Present: normal appearance, PERRL Pupils: Present: normal accommodation ENT exam: Present: normal exam, normal oropharynx, mucous membranes moist Neck exam: Present: normal inspection, full ROM Respiratory exam: Present: decreased breath sounds Cardiovascular Exam: Present: normal rhythm, tachycardia, normal heart sounds GI/Abdominal exam: Present: soft, distended Extremities exam: Present: normal inspection, full ROM, pedal edema Back exam: Present: normal inspection, full ROM Neurological exam: Present: alert, oriented X3, CN II-XII intact Psychiatric exam: Present: normal affect, normal mood, anxious Skin exam: Present: warm, dry Course Vital Signs 07/29/22 07/29/22 07/29/22 19:12 19:37 19:45 Temperature 97.4 F L Pulse Rate 84 80 Pulse Rate [ 79 Atomic Physics Professor ] Respiratory 18 24 Rate Blood Pressure 118/73 100/66 O2 Sat by Pulse 96 97 Oximetry Fraction of Inspired Oxygen (FIO2) 07/29/22 07/29/22 07/29/22 20:04 20:30 20:45 Temperature Pulse Rate Pulse Rate [ Atomic Physics Professor ] Respiratory Rate Blood Pressure 118/73 87/62 O2 Sat by Pulse Oximetry Fraction of 30 Inspired Oxygen (FIO2) 07/29/22 07/29/22 07/29/22 21:00 21:12 21:20 Temperature Pulse Rate 79 77 Pulse Rate [ Atomic Physics Professor ] Respiratory 19 22 Rate Blood Pressure 100/56 100/56 89/49 O2 Sat by Pulse 97 96 Oximetry Fraction of Inspired Oxygen (FIO2) 07/29/22 22:02 Temperature Pulse Rate 78 Pulse Rate [ Atomic Physics Professor ] Respiratory Rate Blood Pressure 89/65 O2 Sat by Pulse 95 Oximetry Fraction of Inspired Oxygen (FIO2) EKG Findings - EKG Comments: EKG Findings:: An EKG was obtained and was read by myself. EKG showed a rate of 81, ID interval of 252, QR lutheran of 122 and QTC of 415. This EKG showed normal sinus rhythm with a first-degree AV block. There was no ST segment elevations or depressions noted. Medical Decision Making - Medical Decision Making The patient was seen and evaluated emergency department. Physical exam, the patient was in moderate distress secondary to respiratory distress, tachypnea and chest pain. Initially on arrival, the patient's vital signs however were relatively within normal limits and the patient had mild tachypnea and mild tachycardia. The patient had a normal auction saturation. The patient had a past medical history significant for CHF as well as previous CAD and due to the patient's nature of his pain, a CTA to rule out a section was obtained. Laboratory workup was also obtained. The patient was placed on BiPAP for assistance with his respiratory status. The patient was also given 80 mg of Lasix IV in order to diurese him as he did state that it felt as if he had fluid overload. Laboratory workup did show an INR of 2.6 which was therapeutic for him as he did have a mitral valve replacement. The remainder of the laboratory workup was within normal limits. EtOH was 179 and the patient did report EtOH use today while watching the football game. On reevaluation after the Lasix and BiPAP, the patient was resting in bed comfortably however continued to state he had continued significant sternal chest pain radiating to his back. Computed tomography scan did not show any signs of dissection but showed a slightly increasing abdominal aortic aneurysm. The patient did not have any abdominal p ain but did state that he had distention secondary to fluid. The patient's blood pressure did continue to remain low secondary to significant diuresis. The patient received normal saline fluid in order to improve his blood pressure. The patient continued to remain stable but due to the patient's hypotension, the patient did not receive any nitroglycerin at this time. The patient was also therapeutic on Coumadin and therefore did not receive any IV heparin. Due to the patient's continued chest pain, the patient will be admitted and treated for unstable angina. The patient had significant cardiac history and did agree to admission. The patient's PCP, Dr. Valderrama was being covered by Dr. Martin and did accept the admission. Cardiology will also be placed on consult at this time. The patient did receive a second dose of pain medications in the emergency department and continued to remain stable. The patient had all of his questions answered appropriately and was admitted in stable condition. - Lab Data Result diagrams: 07/29/22 19:33 07/29/22 19:33 Lab Results 07/29/22 07/29/22 07/29/22 Range/Units 19:33 19:33 19:33 WBC 8.7 (3.8-10.6) k/uL RBC 4.62 (4.30-5.90) m/uL Hgb 14.6 (13.0-17.5) gm/dL Hct 40.8 (39.0-53.0) % MCV 88.2 (80.0-100.0) fL MCH 31.6 (25.0-35.0) pg MCHC 35.8 (31.0-37.0) g/dL RDW 12.6 (11.5-15.5) % Plt Count 243 (150-450) k/uL MPV 9.2 Neutrophils % (Manual) 61 % Lymphocytes % (Manual) 30 % Monocytes % (Manual) 7 % Eosinophils % (Manual) 1 % Basophils % (Manual) 1 % Neutrophils # (Manual) 5.31 (1.3-7.7) k/uL Lymphocytes # (Manual) 2.61 (1.0-4.8) k/uL Monocytes # (Manual) 0.61 (0-1.0) k/uL Eosinophils # (Manual) 0.09 (0-0.7) k/uL Basophils # (Manual) 0.09 (0-0.2) k/uL Nucleated RBCs 0 (0-0) /100 WBC Manual Slide Review Performed RBC Morphology Normal PT 25.9 H (9.0-12.0) sec INR 2.6 H (<1.2) APTT 37.1 H (22.0-30.0) sec Sodium 134 L (137-145) mmol/L Potassium 4.0 (3.5-5.1) mmol/L Chloride 101 (98-107) mmol/L Carbon Dioxide 22 (22-30) mmol/L Anion Gap 11 mmol/L BUN 15 (9-20) mg/dL Creatinine 1.03 (0.66-1.25) mg/dL Est GFR (CKD-EPI)AfAm >90 (>60 ml/min/1.73 sqM) Est GFR (CKD-EPI)NonAf 80 (>60 ml/min/1.73 sqM) Glucose 216 H (74-99) mg/dL Calcium 8.8 (8.4-10.2) mg/dL Magnesium 1.8 (1.6-2.3) mg/dL Total Bilirubin 0.7 (0.2-1.3) mg/dL AST 51 (17-59) U/L ALT 55 H (4-49) U/L Alkaline Phosphatase 159 H (38-126) U/L Troponin I (0.000-0.034) ng/mL NT-Pro-B Natriuret Pep pg/mL Total Protein 7.0 (6.3-8.2) g/dL Albumin 4.5 (3.5-5.0) g/dL Serum Alcohol 179 mg/dL 07/29/22 07/29/22 Range/Units 19:33 19:33 WBC (3.8-10.6) k/uL RBC (4.30-5.90) m/uL Hgb (13.0-17.5) gm/dL Hct (39.0-53.0) % MCV (80.0-100.0) fL MCH (25.0-35.0) pg MCHC (31.0-37.0) g/dL RDW (11.5-15.5) % Plt Count (150-450) k/uL MPV Neutrophils % (Manual) % Lymphocytes % (Manual) % Monocytes % (Manual) % Eosinophils % (Manual) % Basophils % (Manual) % Neutrophils # (Manual) (1.3-7.7) k/uL Lymphocytes # (Manual) (1.0-4.8) k/uL Monocytes # (Manual) (0-1.0) k/uL Eosinophils # (Manual) (0-0.7) k/uL Basophils # (Manual) (0-0.2) k/uL Nucleated RBCs (0-0) /100 WBC Manual Slide Review RBC Morphology PT (9.0-12.0) sec INR (<1.2) APTT (22.0-30.0) sec Sodium (137-145) mmol/L Potassium (3.5-5.1) mmol/L Chloride (98-107) mmol/L Carbon Dioxide (22-30) mmol/L Anion Gap mmol/L BUN (9-20) mg/dL Creatinine (0.66-1.25) mg/dL Est GFR (CKD-EPI)AfAm (>60 ml/min/1.73 sqM) Est GFR (CKD-EPI)NonAf (>60 ml/min/1.73 sqM) Glucose (74-99) mg/dL Calcium (8.4-10.2) mg/dL Magnesium (1.6-2.3) mg/dL Total Bilirubin (0.2-1.3) mg/dL AST (17-59) U/L ALT (4-49) U/L Alkaline Phosphatase (38-126) U/L Troponin I 0.024 (0.000-0.034) ng/mL NT-Pro-B Natriuret Pep 83 pg/mL Total Protein (6.3-8.2) g/dL Albumin (3.5-5.0) g/dL Serum Alcohol mg/dL Critical Care Time Critical Care Time: Yes Total Critical Care Time: 42 Disposition Clinical Impression: Unstable angina, Alcohol abuse, Obesity (BMI 30-39.9), Status post mitral valve replacement, CHF (congestive heart failure), CAD (coronary artery disease) Disposition: ADMITTED IP TO THIS HOSP Condition: Stable Is patient prescribed a controlled substance at d/c from ED?: No Referrals: Chandler Valderrama MD [Primary Care Provider] - 1-2 days Time of Disposition: 22:30 Decision to Admit Reason: Admit from EC Decision Date: 07/29/22 Decision Time: 22:30
[2022-07-29] MEDS ORDERED: NALOXONE 0.4 MG/ML 1 ML VIAL IV PRN (22:30)
[2022-07-30] MEDS: MORPHINE SULFATE 4 MG/ML SYRINGE IVP PRN ×5 (00:36→23:12)
[2022-07-30 11:19] LABS: Basophils # (A) 0.1 k/uL (0-0.2); Basophils % (A) 1 %; Eosinophils # (A) 0.1 k/uL (0-0.7); Eosinophils % (A) 2 %; HCT 39.4 % (39.0-53.0); HGB 13.6 gm/dL (13.0-17.5); Lymphocytes # (A) 1.5 k/uL (1.0-4.8); Lymphocytes % (A) 21 %; MCH 31.7 pg (25.0-35.0); MCHC 34.7 g/dL (31.0-37.0); MCV 91.4 fL (80.0-100.0); Mean Platelet Volume 8.9; Monocytes # (A) 0.5 k/uL (0-1.0); Monocytes % (A) 6 %; Neutrophils # (A) 4.8 k/uL (1.3-7.7); Neutrophils % (A) 67 %; Platelet Count 188 k/uL (150-450); RBC 4.31 m/uL (4.30-5.90); RDW 12.8 % (11.5-15.5); WBC 7.2 k/uL (3.8-10.6)
[2022-07-30 11:36] LABS: African American GFR (CKD) >90 (>60 ml/min/1.73 sqM); Anion Gap 6 mmol/L; Blood Urea Nitrogen 17 mg/dL (9-20); Calcium 8.5 mg/dL (8.4-10.2); Carbon Dioxide 26 mmol/L (22-30); Chloride 103 mmol/L (98-107); Glucose 130 mg/dL (74-99); Non-African American GFR(CKD) >90 (>60 ml/min/1.73 sqM); Potassium 4.3 mmol/L (3.5-5.1); Prothrombin Time 30.3 sec (9.0-12.0); Sodium 135 mmol/L (137-145)
[2022-07-30] MEDS ORDERED: ALBUTEROL HFA INHALER INHALATION PRN (11:58)
[2022-07-30] MEDS ORDERED: ALBUTEROL NEBULIZED 2.5 MG/3 ML INHALATION PRN (11:58)
--- NOTE | 2022-07-30 12:47 | P.HPIM ---
History of Present Illness 57-year-old male given complains of chest was pressure like sensation which started at rest in the left side of the chest continues to have pain constant pain 5/10 in severity and radiates to the back between the shoulder blades. De nied any associated nausea vomiting lightheadedness. Patient had history of coronary artery disease history of atrial fibrillation mitral valve replacement patient had a recent stress stress test in month of April at [facility] [place]. Denied any diaphoresis associated with that. Patient denied any shortness of breath or orthopnea. She had a chest x-ray which showed some pulmonary fibrotic changes patient has history of from sleep apnea. REVIEW OF SYSTEMS: CONSTITUTIONAL: No fever, no malaise, no fatigue. HEENT: No recent visual problems or hearing problems. Denied any sore throat. CARDIOVASCULAR: No orthopnea, PND, no palpitations, no syncope. PULMONARY: No shortness of breath, no cough, no hemoptysis. GASTROINTESTINAL: No diarrhea, no nausea, no vomiting, no abdominal pain. NEUROLOGICAL: No headaches, no weakness, no numbness. HEMATOLOGICAL: Denies any bleeding or petechiae. GENITOURINARY: Denies any burning micturition, frequency, or urgency. MUSCULOSKELETAL/RHEUMATOLOGICAL: Denies any joint pain, swelling, or any muscle pain. ENDOCRINE: Denies any polyuria or polydipsia. The rest of the 14-point review of systems is negative. PHYSICAL EXAMINATION: GENERAL: The patient is alert and oriented x3, not in any acute distress. Obese HEENT: Pupils are round and equally reacting to light. EOMI. No scleral icterus. No conjunctival pallor. Normocephalic, atraumatic. No pharyngeal erythema. No thyromegaly. CARDIOVASCULAR: S1 and S2 present. No murmurs, rubs, or gallops. PULMONARY: Chest is clear to auscultation, no wheezing or crackles. ABDOMEN: Soft, nontender, nondistended, normoactive bowel sounds. No palpable organomegaly. MUSCULOSKELETAL: No joint swelling or deformity. EXTREMITIES: No cyanosis, clubbing, or pedal edema. NEUROLOGICAL: Gross neurological examination did not reveal any focal deficits. SKIN: No rashes. Assessment and plan -Chest pain: We will rule out acute coronary syndromes etiology was consulted patient appears to have noncardiac pain. Allsop an ultrasound of the gallbladder because of his pain radiating to shoulder blades rule out any cholelithiasis. -History of paroxysmal A. fib: Patient is sinus rhythm. Patient will be continued on Coreg patient INR is around 3 which is therapeutic patient and I need to be around the 2.5-3.5 because of mechanical mitral valve History of mitral valve replacement: Patient is a mechanical mitral valve. Next From sleep apnea -Coronary artery disease with CABG in the past -Hyperlipidemia Hypertension DVT prophylaxis: Patient is on Coumadin INR 3, therapeutic Past Medical History Past Medical History: Atrial Fibrillation, Coronary Artery Disease (CAD), GERD/Reflux, Hyperlipidemia, Hypertension, Pneumonia, Sleep Apnea/CPAP/BIPAP Additional Past Medical History / Comment(s): DIVERTICULITIS. ALEISHA with Cpap use History of Any Multi-Drug Resistant Organisms: None Reported Past Surgical History: Appendectomy, Coronary Bypass/CABG, Heart Catheterization With Stent Additional Past Surgical History / Comment(s): 2017 PCI with stent, 2018 CABG 2 vessel with mitral valve replacement, cardioversion x 3, DYLAN x2, EGD, colonoscopy, stress test done Past Anesthesia/Blood Transfusion Reactions: No Reported Reaction Date of Last Stent Placement:: 01/22/18 Past Psychological History: No Psychological Hx Reported Additional Psychological History / Comment(s): Pt resides with his spouse. He is independent. Smoking Status: Former smoker Past Alcohol Use History: None Reported, Occasional Additional Past Alcohol Use History / Comment(s): Pt started smoking in 1981 and quit in 2017. Pt drinks 3-6 beers a day. Past Drug Use History: None Reported - Past Family History Father Family Medical History: Congestive Heart Failure (CHF) Additional Family Medical History / Comment(s): Father of CHF at the age of 68yrs. Mother Family Medical History: No Reported History Additional Family Medical History / Comment(s): Mother at the age of 62 or 63 yrs from myasthenia gravis. Brother(s) Family Medical History: Coronary Artery Disease (CAD) Additional Family Medical History / Comment(s): ONE BROTHER HAD CABG Sister(s) Family Medical History: Coronary Artery Disease (CAD) Additional Family Medical History / Comment(s): ONE SISTER HAS HEART STENTS. ONE SISTER HAS HAD CABG Medications and Allergies Home Medications Medication Instructions Recorded Confirmed Type Multivitamin [Men's Multi-Vitamin] 1 tab PO DAILY 01/22/14 07/30/22 History Magnesium Oxide [Mag-Ox] 500 mg PO W/BRKFST 05/20/19 07/30/22 History Sertraline [Zoloft] 50 mg PO DAILY 05/20/19 07/30/22 History Pantoprazole [Protonix] 40 mg PO DAILY 11/08/20 07/30/22 History Albuterol Sulfate [Proair Hfa] 2 puff INHALATION RT-QID PRN 06/20/21 07/30/22 History Isosorbide Mononitrate ER [Imdur] 30 mg PO DAILY 11/23/21 07/30/22 History Potassium Chloride ER [K-Dur 10] 10 meq PO DAILY 11/23/21 07/30/22 History Albuterol Nebulized [Ventolin 2.5 mg INHALATION RT-QID PRN 07/30/22 07/30/22 History Nebulized] Aspirin EC [Ecotrin Low Dose] 81 mg PO DAILY 07/30/22 07/30/22 History Atorvastatin [Lipitor] 40 mg PO HS 07/30/22 07/30/22 History Furosemide [Lasix] 40 mg PO DAILY 07/30/22 07/30/22 History Furosemide [Lasix] 60 mg PO DAILY 07/30/22 07/30/22 History Lansoprazole [Prevacid 24Hr] 15 mg PO DAILY 07/30/22 07/30/22 History Losartan [Cozaar] 75 mg PO DAILY 07/30/22 07/30/22 History Metoprolol Tartrate [Lopressor] 25 mg PO AC-BID 07/30/22 07/30/22 History Spironolactone [Aldactone] 25 mg PO DAILY 07/30/22 07/30/22 History Tiotropium Br/Olodaterol HCl 2 puff INHALATION RT-DAILY 07/30/22 07/30/22 History [Stiolto Respimat Inhal [place]] Warfarin [Coumadin] 7.5 mg PO MOTUWETHSA@1700 07/30/22 07/30/22 History Warfarin [Coumadin] 10 mg PO SUFR@1700 07/30/22 07/30/22 History Allergies Allergy/AdvReac Type Severity Reaction Status Date / Time Penicillins Allergy Unknown Verified 07/30/22 11:03 Childhood Physical Exam Vitals: Vital Signs Temp Pulse Pulse Resp BP BP Pulse Ox 07/30/22 09:22 98 07/30/22 08:00 97.8 F 75 18 136/82 98 07/30/22 03:14 97.9 F 83 18 126/53 93 L 07/30/22 00:30 97.3 F L 77 20 157/74 95 07/29/22 23:15 97.5 F L 77 20 102/57 94 L 07/29/22 22:33 75 20 90/55 93 L 07/29/22 22:02 78 89/65 95 07/29/22 21:20 77 22 89/49 96 07/29/22 21:12 79 19 100/56 97 07/29/22 21:00 100/56 07/29/22 20:45 87/62 07/29/22 20:30 118/73 07/29/22 20:04 07/29/22 19:45 80 24 100/66 97 07/29/22 19:37 79 07/29/22 19:12 97.4 F L 84 18 118/73 96 FiO2 07/30/22 09:22 30 07/30/22 08:00 07/30/22 03:14 07/30/22 00:30 07/29/22 23:15 07/29/22 22:33 07/29/22 22:02 07/29/22 21:20 07/29/22 21:12 07/29/22 21:00 07/29/22 20:45 07/29/22 20:30 07/29/22 20:04 30 07/29/22 19:45 07/29/22 19:37 07/29/22 19:12 Intake and Output 07/29/22 07/30/22 07/30/22 22:59 06:59 14:59 Output Total 1200 500 550 Balance -1200 -500 -550 Output: Urine 1200 500 550 Other: # Voids 1 1 Weight 129.274 kg 130.3 kg Results CBC & Chem 7: 07/30/22 11:02 07/30/22 11:02 Labs: Abnormal Lab Results - Last 24 Hours (Table) 07/29/22 07/29/22 07/30/22 Range/Units 19:33 19:33 11:02 PT 25.9 H 30.3 H (9.0-12.0) sec INR 2.6 H 3.0 H (<1.2) APTT 37.1 H (22.0-30.0) sec Sodium 134 L (137-145) mmol/L Creatinine (0.66-1.25) mg/dL Glucose 216 H (74-99) mg/dL ALT 55 H (4-49) U/L Alkaline Phosphatase 159 H (38-126) U/L 07/30/22 Range/Units 11:02 PT (9.0-12.0) sec INR (<1.2) APTT (22.0-30.0) sec Sodium 135 L (137-145) mmol/L Creatinine 0.63 L (0.66-1.25) mg/dL Glucose 130 H (74-99) mg/dL ALT (4-49) U/L Alkaline Phosphatase (38-126) U/L Thrombosis Risk Factor Assmnt - Choose All That Apply Any of the Below Risk Factors Present?: Yes Each Factor Represents 1 point: Age 41-60 years, Medical pt on bed rest, Obesity (BMI >25) Other Risk Factors: No Other congenital or acquired thrombophilia - If yes, enter type in comment: No Thrombosis Risk Factor Assessment Total Risk Factor Score: 3 Thrombosis Risk Factor Assessment Level: Moderate Risk
[2022-07-30] MEDS ORDERED: ISOSORBIDE MONONITRATE ER 30 MG TAB.ER.24H PO SCH (13:00)
--- NOTE | 2022-07-30 13:31 | P.CRDCN ---
History of Present Illness Consult date: 07/30/22 History of present illness: Patient has a known history of coronary artery disease status post CABG, congestive heart failure, mitral valve replacement on Coumadin, atrial fibrillation, abdominal aortic aneurysm. Patient follows with Dr. Valles in the office. We have consulted see the patient for unstable angina. He initially presented with chest pain and increase shortness of breath. The chest pain radiated into his back and accompanied by diaphoresi. Itstarted yesterday. Patient had similar episode in February of this year he was [facility]. He reports he had a stress test at that time. He believes he was okay because he was discharged home. His troponins are negative 2 his BNP is 83, his EKG shows sinus rhythm with a first-degree right bundle branch block. Patient's therapeutic on his Coumadin his INR is 2.6. He had a CT of the abdomen which showed a AAA measuring 3.5 cm, and small pleural effusion possible CHF. obtain stress test from [facility]. Patient had a cardiac catheterization in November 2020 which gave probably total occlusion of the vein graft to the circumflex. The right internal mammary graft to her CKs pain. LAD and branches have no significant disease. Distal circumflex is occluded. [place] RCA has mild occlusion. Filling pressures are acceptable. Patient was advised medical therapy at that time. Patient is seen today resting comfortably in bed and denies any further episode of chest pain at this time. Will obtain a 2-D echocardiogram and evaluate. further course of action based on echocardiogram. Review of Systems REVIEW OF SYSTEMS At the time of my exam: CONSTITUTIONAL: Denies fever or chills. EYES: Negative for vision changes ENT: Negative for hearing loss CARDIOVASCULAR: Denies chest pain, shortness of breath, diaphoresis, orthopnea, PND or palpitations. VASCULAR: Denies edema RESPIRATORY: Denies cough. GASTROINTESTINAL: Denies abdominal pain, diarrhea, constipation, nausea or vomiting. MUSCULOSKELETAL: Denies myalgias. NEUROLOGIC: Denies numbness, tingling, headache or weakness. ENDOCRINE: Denies fatigue, weight change, polydipsia or polyurina. GENITOURINARY: Denies burning, hematuria or urgency with micturation. HEMATOLOGIC: Denies history of anemia or bleeding. DERMATOLOGY: Denies rash or skin sores PSYCH: Negative for depression or hallucinations. Past Medical History Past Medical History: Atrial Fibrillation, Coronary Artery Disease (CAD), GERD/Reflux, Hyperlipidemia, Hypertension, Pneumonia, Sleep Apnea/CPAP/BIPAP Additional Past Medical History / Comment(s): DIVERTICULITIS. ALEISHA with Cpap use History of Any Multi-Drug Resistant Organisms: None Reported Past Surgical History: Appendectomy, Coronary Bypass/CABG, Heart Catheterization With Stent Additional Past Surgical History / Comment(s): 2018 PCI with stent, 2018 CABG 2 vessel with mitral valve replacement, cardioversion x 3, DYLAN x2, EGD, colonoscopy, stress test done Past Anesthesia/Blood Transfusion Reactions: No Reported Reaction Date of Last Stent Placement:: 01/22/18 Past Psychological History: No Psychological Hx Reported Additional Psychological History / Comment(s): Pt resides with his spouse. He is independent. Smoking Status: Former smoker Past Alcohol Use History: None Reported, Occasional Additional Past Alcohol Use History / Comment(s): Pt started smoking in 1981 and quit in 2017. Pt drinks 3-6 beers a day. Past Drug Use History: None Reported - Past Family History Father Family Medical History: Congestive Heart Failure (CHF) Additional Family Medical History / Comment(s): Father of CHF at the age of 68yrs. Mother Family Medical History: No Reported History Additional Family Medical History / Comment(s): Mother at the age of 62 or 63 yrs from myasthenia gravis. Brother(s) Family Medical History: Coronary Artery Disease (CAD) Additional Family Medical History / Comment(s): ONE BROTHER HAD CABG Sister(s) Family Medical History: Coronary Artery Disease (CAD) Additional Family Medical History / Comment(s): ONE SISTER HAS HEART STENTS. ONE SISTER HAS HAD CABG Medications and Allergies Home Medications Medication Instructions Recorded Confirmed Type Multivitamin [Men's Multi-Vitamin] 1 tab PO DAILY 01/22/14 07/30/22 History Magnesium Oxide [Mag-Ox] 500 mg PO W/BRKFST 05/20/19 07/30/22 History Sertraline [Zoloft] 50 mg PO DAILY 05/20/19 07/30/22 History Pantoprazole [Protonix] 40 mg PO DAILY 11/08/20 07/30/22 History Albuterol Sulfate [Proair Hfa] 2 puff INHALATION RT-QID PRN 06/20/21 07/30/22 History Isosorbide Mononitrate ER [Imdur] 30 mg PO DAILY 11/23/21 07/30/22 History Potassium Chloride ER [K-Dur 10] 10 meq PO DAILY 11/23/21 07/30/22 History Albuterol Nebulized [Ventolin 2.5 mg INHALATION RT-QID PRN 07/30/22 07/30/22 History Nebulized] Aspirin EC [Ecotrin Low Dose] 81 mg PO DAILY 07/30/22 07/30/22 History Atorvastatin [Lipitor] 40 mg PO HS 07/30/22 07/30/22 History Furosemide [Lasix] 40 mg PO DAILY 07/30/22 07/30/22 History Furosemide [Lasix] 60 mg PO DAILY 07/30/22 07/30/22 History Lansoprazole [Prevacid 24Hr] 15 mg PO DAILY 07/30/22 07/30/22 History Losartan [Cozaar] 75 mg PO DAILY 07/30/22 07/30/22 History Metoprolol Tartrate [Lopressor] 25 mg PO AC-BID 07/30/22 07/30/22 History Spironolactone [Aldactone] 25 mg PO DAILY 07/30/22 07/30/22 History Tiotropium Br/Olodaterol HCl 2 puff INHALATION RT-DAILY 07/30/22 07/30/22 History [Stiolto Respimat Inhal [place]] Warfarin [Coumadin] 7.5 mg PO MOTUWETHSA@1700 07/30/22 07/30/22 History Warfarin [Coumadin] 10 mg PO SUFR@1700 07/30/22 07/30/22 History Allergies Allergy/AdvReac Type Severity Reaction Status Date / Time Penicillins Allergy Unknown Verified 07/30/22 11:03 Childhood Physical Exam Vitals: Vital Signs Temp Pulse Pulse Resp BP BP Pulse Ox 07/30/22 12:00 74 18 155/86 97 07/30/22 09:22 98 07/30/22 08:00 97.8 F 75 18 136/82 98 07/30/22 03:14 97.9 F 83 18 126/53 93 L 07/30/22 00:30 97.3 F L 77 20 157/74 95 07/29/22 23:15 97.5 F L 77 20 102/57 94 L 07/29/22 22:33 75 20 90/55 93 L 07/29/22 22:02 78 89/65 95 07/29/22 21:20 77 22 89/49 96 07/29/22 21:12 79 19 100/56 97 07/29/22 21:00 100/56 07/29/22 20:45 87/62 07/29/22 20:30 118/73 07/29/22 20:04 07/29/22 19:45 80 24 100/66 97 07/29/22 19:37 79 07/29/22 19:12 97.4 F L 84 18 118/73 96 FiO2 07/30/22 12:00 07/30/22 09:22 30 07/30/22 08:00 07/30/22 03:14 07/30/22 00:30 07/29/22 23:15 07/29/22 22:33 07/29/22 22:02 07/29/22 21:20 07/29/22 21:12 07/29/22 21:00 07/29/22 20:45 07/29/22 20:30 07/29/22 20:04 30 07/29/22 19:45 07/29/22 19:37 07/29/22 19:12 Intake and Output 07/29/22 07/30/22 07/30/22 22:59 06:59 14:59 Output Total 1200 500 550 Balance -1200 -500 -550 Output: Urine 1200 500 550 Other: # Voids 1 1 Weight 129.274 kg 130.3 kg General: The patient is awake and alert, in no distress, and does not appear acutely ill. Skin: Skin is warm and dry and no rashes or lesions are noted. Eye: Pupils are equal, round and reactive to light, extra-ocular movements are intact; there is normal conjunctiva bilaterally. Ears, nose, mouth and throat: There are moist mucous membranes and no oral lesions. Neck: The neck is supple, there is no tenderness or JVD. Cardiovascular: There is irregular regular rate and rhythm. No murmur, rub or gallop is appreciated. Respiratory: Lungs are clear to auscultation, respirations are non-labored, breath sounds are equal. Gastrointestinal: Soft, non-distended, non-tender abdomen without masses or organomegaly noted. There is no rebound or guarding present. Bowel sounds are unremarkable. Back: There is no tenderness to palpation in the midline. There is no obvious deformity. Musculoskeletal: Normal ROM, no tenderness, There is no pedal edema. There is no calf tenderness or swelling. Extremities: Mild bilateral pitting edema Vascular: Femoral pulse is normal. Posterior tibial pulses are normal .Dorsalis pedis is palpable. Neurological: CN II-XII intact. There are no obvious motor or sensory deficits. Speech is normal. Psychiatric: Cooperative, appropriate mood & affect, normal judgment Results 07/30/22 11:02 07/30/22 11:02 Cardiac Enzymes 07/29/22 07/29/22 07/30/22 Range/Units 19:33 19:33 01:37 AST 51 (17-59) U/L Troponin I 0.024 0.024 (0.000-0.034) ng/mL Coagulation 07/29/22 07/30/22 Range/Units 19:33 11:02 PT 25.9 H 30.3 H (9.0-12.0) sec APTT 37.1 H (22.0-30.0) sec CBC 07/29/22 07/30/22 Range/Units 19:33 11:02 WBC 8.7 7.2 (3.8-10.6) k/uL RBC 4.62 4.31 (4.30-5.90) m/uL Hgb 14.6 13.6 (13.0-17.5) gm/dL Hct 40.8 39.4 (39.0-53.0) % Plt Count 243 188 (150-450) k/uL Comprehensive Metabolic Panel 07/29/22 07/30/22 Range/Units 19:33 11:02 Sodium 134 L 135 L (137-145) mmol/L Potassium 4.0 4.3 (3.5-5.1) mmol/L Chloride 101 103 (98-107) mmol/L Carbon Dioxide 22 26 (22-30) mmol/L BUN 15 17 (9-20) mg/dL Creatinine 1.03 0.63 L (0.66-1.25) mg/dL Glucose 216 H 130 H (74-99) mg/dL Calcium 8.8 8.5 (8.4-10.2) mg/dL AST 51 (17-59) U/L ALT 55 H (4-49) U/L Alkaline Phosphatase 159 H (38-126) U/L Total Protein 7.0 (6.3-8.2) g/dL Albumin 4.5 (3.5-5.0) g/dL Current Medications Generic Name Dose Route Start Last Admin Trade Name Freq PRN Reason Stop Dose Admin Albuterol Sulfate 2.5 mg 07/30/22 11:58 Albuterol Nebulized 2.5 Mg/3 Ml INHALATION RT-QID PRN Shortness Of Breath Aspirin 81 mg 07/30/22 13:00 Aspirin 81 Mg PO DAILY [facility] Atorvastatin Calcium 40 mg 07/30/22 21:00 Atorvastatin 80 Mg Tab PO HS [facility] Formoterol Fumarate 20 mcg 07/30/22 20:00 Formoterol Fumarate 20 Mcg/2 Ml Nebu INHALATION RT-BID [facility] Furosemide 40 mg 07/30/22 18:00 Furosemide 40 Mg Tab PO DAILY@1800 [facility] Furosemide 60 mg 07/31/22 09:00 Furosemide 40 Mg Tab PO DAILY [facility] Ipratropium [place] 0.5 mg 07/30/22 20:00 Ipratropium 0.5 Mg/2.5 Ml Nebu INHALATION RT-QID [facility] Isosorbide Mononitrate 30 mg 07/30/22 13:00 Isosorbide Mononitrate Er 30 Mg Tab.Er.24h PO DAILY [facility] Losartan Potassium 75 mg 07/30/22 13:00 Losartan 25 Mg Tab PO DAILY [facility] Metoprolol Tartrate 25 mg 07/30/22 17:30 Metoprolol Tartrate 25 Mg Tab PO AC-BID [facility] Miscellaneous Information 0 each 07/30/22 12:29 Warfarin Per Pharmacy MISCELLANE DIRECTED PRN ANTICOAG Morphine Sulfate 6 mg 07/30/22 00:30 07/30/22 09:04 Morphine Sulfate 4 Mg/Ml Syringe IVP 6 mg Q4HR PRN Administration Pain Naloxone HCl 0.2 mg 07/29/22 22:30 Naloxone 0.4 Mg/Ml 1 Ml Vial IV Q2M PRN Opioid Reversal Pantoprazole Sodium 40 mg 07/30/22 13:00 Pantoprazole 40 Mg Tablet PO DAILY [facility] Potassium Chloride 10 meq 07/30/22 13:00 Potassium Chloride Er 10 Meq Tab.Er.Prt PO DAILY [facility] Sertraline HCl 50 mg 07/30/22 13:00 Sertraline 50 Mg Tab PO DAILY [facility] Spironolactone 25 mg 07/30/22 13:00 Spironolactone 25 Mg Tab PO DAILY [facility] Warfarin Sodium 7.5 mg 07/31/22 17:00 Warfarin 2.5 Mg Tab PO MOTUWETHSA@1700 [facility] Protocol Warfarin Sodium 10 mg 07/30/22 17:00 Warfarin 2.5 Mg Tab PO SUFR@1700 [facility] Protocol Intake and Output 07/29/22 07/30/22 07/30/22 22:59 06:59 14:59 Output Total 1200 500 550 Balance -1200 -500 -550 Output: Urine 1200 500 550 Other: # Voids 1 1 Weight 129.274 kg 130.3 kg 07/30/22 11:02 07/30/22 11:02 Assessment and Plan Assessment: Chest pain, rule out ACS History of coronary artery disease status post CABG Mitral valve replacement on Coumadin Atrial fibrillation Plan: Will obtain a 2-D echocardiogram Will increase Imdur to 60 mg daily Continue with all other current cardiac medications Further recommendations based on clinical course The above impression and plan of care have been discussed and directed by the signing physician. Diya Riggs, nurse practitioner, acting as scribe for signing physician.
[2022-07-30] MEDS: SPIRONOLACTONE 25 MG TAB PO SCH (13:47)
[2022-07-30] MEDS: LOSARTAN 25 MG TAB PO SCH (13:47)
[2022-07-30] MEDS: PANTOPRAZOLE 40 MG TABLET PO SCH (13:47)
[2022-07-30] MEDS: POTASSIUM CHLORIDE ER 10 MEQ TAB.ER.PRT PO SCH (13:47)
[2022-07-30] MEDS: ASPIRIN 81 MG PO SCH (13:47)
[2022-07-30] MEDS: SERTRALINE 50 MG TAB PO SCH (13:47)
[2022-07-30] MEDS ORDERED: ISOSORBIDE MONONITRATE ER 30 MG TAB.ER.24H PO ONE (14:00)
--- NOTE | 2022-07-30 14:03 | US ---
EXAMINATION TYPE: US gallbladder DATE OF EXAM: 07/30/2022 COMPARISON: NONE CLINICAL HISTORY: 57-year-old male gallstones, pain. Chest pain TECHNIQUE: Multiple sonographic images of the right upper quadrant are obtained. FINDINGS: EXAM MEASUREMENTS: Liver Length: 23.1 cm Gallbladder Wall: 0.2 cm CBD: not seen Right Kidney: 11.3 x 5.1 x 5.9 cm DIRECTOR SURFACE TRANSPORTATION NOTES: Body habitus and bowel gas severely limits exam. Morbidly obese, Pancreas: portion seen appear wnl Liver: enlarged and very difficult to penetrate, markedly echogenic. Unable to see vasculature Gallbladder: sludge-like appearance with no obvious stones seen. Gallbladder is mildly hydropic paris uring 4.5 cm wide. No wall thickening or surrounding fluid. Evidence for sonographic Giron's sign: No CBD: unable to visualize due to extensive attenuation from the liver Right Kidney: wnl IMPRESSION: 1. Unable to assess the bile duct due to loss of the ultrasound beam from the severely fatty liver. C orrelate with LFTs, lipid profile, patient risk factors. Recommend appropriate management for the sev ere fatty liver change. 2. Mildly hydropic gallbladder may relate to fasting state. There seems to be some layering sludge in the gallbladder. No wall thickening or surrounding fluid to clearly indicate acute cholecystitis at this time.
[2022-07-30] MEDS: IPRATROPIUM 0.5 MG/2.5 ML NEBU INHALATION SCH ×2 (15:28→20:23)
[2022-07-30] MEDS ORDERED: WARFARIN 10 MG TAB PO SCH (17:00)
[2022-07-30] MEDS: METOPROLOL TARTRATE 25 MG TAB PO SCH (17:15)
[2022-07-30] MEDS: FUROSEMIDE 40 MG TAB PO SCH (17:15)
[2022-07-30] MEDS: FORMOTEROL FUMARATE 20 MCG/2 ML NEBU INHALATION SCH (20:23)
[2022-07-30] MEDS: ATORVASTATIN 80 MG TAB PO SCH (20:32)
[2022-07-31] MEDS: METOPROLOL TARTRATE 25 MG TAB PO SCH ×2 (06:55→16:59)
[2022-07-31 08:30] LABS: INR 2.8 (<1.2); Prothrombin Time 27.6 sec (9.0-12.0)
--- NOTE | 2022-07-31 08:50 | P.PN ---
Subjective Progress Note Date: 07/31/22 Principal diagnosis: chest pain Is a 57 year old male who presented to the ER originally with gallbladder type pain along with midsternal chest pain. Patient reports some mild congestion. He does have a history of A. fib. Cardiology has been consulted and an echo has been ordered. Objective - Vital Signs Vital signs: Vital Signs Temp 97.7 F 07/31/22 04:00 Pulse 75 07/31/22 04:00 Resp 18 07/31/22 04:00 BP 125/70 07/31/22 04:00 Pulse Ox 95 07/31/22 04:00 FiO2 30 07/30/22 09:22 Intake & Output 07/30/22 07/31/22 07/31/22 18:59 06:59 18:59 Intake Total 0 600 236 Output Total 550 3100 Balance -550 -2500 236 Weight 131.9 kg Intake: Oral 0 600 236 Output: Urine 550 3100 Other: Voiding Method Urinal # Voids 3 - Constitutional General appearance: Present: cooperative. Absent: no acute distress - EENT Eyes: Present: EOMI, PERRLA - Respiratory Respiratory: bilateral: CTA - Cardiovascular Rhythm: irregularly irregular - Gastrointestinal General gastrointestinal: Present: normal bowel sounds, soft - Integumentary Integumentary: Present: normal, normal turgor - Psychiatric Psychiatric: Present: A&O x's 3, appropriate affect, intact judgment & insight - Labs CBC & Chem 7: 07/30/22 11:02 07/30/22 11:02 Labs: Abnormal Lab Results - Last 24 Hours (Table) 07/30/22 07/30/22 07/31/22 Range/Units 11:02 11:02 07:56 PT 30.3 H 27.6 H (9.0-12.0) sec INR 3.0 H 2.8 H (<1.2) Sodium 135 L (137-145) mmol/L Creatinine 0.63 L (0.66-1.25) mg/dL Glucose 130 H (74-99) mg/dL Assessment and Plan (1) Atrial fibrillation with RVR Current Visit: No Status: Acute Code(s): I48.91 - UNSPECIFIED ATRIAL FIBRILLATION SNOMED Code(s): 487706463543961 (2) Chest pain Current Visit: No Status: Acute Code(s): R07.9 - CHEST PAIN, UNSPECIFIED SNOMED Code(s): 48335907 (3) CAD (coronary artery disease) Current Visit: Yes Status: Chronic Code(s): I25.10 - ATHSCL HEART DISEASE OF [place] CORONARY ARTERY W/O ANG PCTRS SNOMED Code(s): 25505169 (4) History of mitral valve replacement Current Visit: Yes Status: Acute Code(s): Z95.2 - PRESENCE OF PROSTHETIC HEART VALVE SNOMED Code(s): 8502115248290 Plan: Echo ordered for today. We'll order CBC and CMP tomorrow. Continue to follow closely. Patient seen and evaluated by nurse practitioner, physician in agreement with plan
[2022-07-31] MEDS ORDERED: PANTOPRAZOLE 40 MG TABLET PO SCH (09:00)
[2022-07-31] MEDS: FORMOTEROL FUMARATE 20 MCG/2 ML NEBU INHALATION SCH ×2 (09:01→21:17)
[2022-07-31] MEDS: IPRATROPIUM 0.5 MG/2.5 ML NEBU INHALATION SCH ×4 (09:01→21:17)
[2022-07-31] MEDS: FUROSEMIDE 40 MG TAB PO SCH ×2 (09:13→16:59)
[2022-07-31] MEDS: ASPIRIN 81 MG PO SCH (09:13)
[2022-07-31] MEDS: SPIRONOLACTONE 25 MG TAB PO SCH (09:13)
[2022-07-31] MEDS: SERTRALINE 50 MG TAB PO SCH (09:13)
[2022-07-31] MEDS: PANTOPRAZOLE 40 MG TABLET PO SCH (09:13)
[2022-07-31] MEDS: ISOSORBIDE MONONITRATE ER 60 MG TAB.ER.24H PO SCH (09:13)
[2022-07-31] MEDS: LOSARTAN 25 MG TAB PO SCH (09:13)
[2022-07-31] MEDS: POTASSIUM CHLORIDE ER 10 MEQ TAB.ER.PRT PO SCH (09:14)
--- NOTE | 2022-07-31 12:09 | P.PN ---
Subjective This is a 57-year-old male with a past medical history significant for coronary artery disease with previous PCI 3, mitral valve replacement, Maze procedure, and CABG 2 (right internal mammary artery to RCA and saphenous vein graft of the aorta to the second obtuse marginal artery) in 2018, hyperlipidemia, hypertension, COPD, obstructive sleep apnea, and GERDPatient follows in the office with Dr. Valles. We have been asked to see the patient in consultation for chest pain.Patient presents with chest heaviness, radiating to his back. Has associated shortness of breath. Patient seen at bedside, continues to have the same complaints. He has significant soreness to palpation in his center of his chest, right side of his chest and his back on exam. His troponins have been negative x 3. EKG revealed sinus rhythm with first degree AV block, right bundle branch block, no acute ischemia noted. Patient's Vital signs are stable. Acute coronary syndrome has been ruled out. GENERAL: Well-appearing, well-nourished and in no acute distress. NECK: Supple without JVD or thyromegaly. LUNGS: Breath sounds clear to auscultation bilaterally. Respiration equal and unlabored. No wheezes, rales or rhonchi. CHEST: Tenderness to the right side, center chest and upper back with palpation on exam. HEART: Regular rate and rhythm without murmurs, rubs or gallops. S1 and S2 heard. EXTREMITIES: Normal range of motion, no edema. No clubbing or cyanosis. Peripheral pulses intact. ASSESSMENT Chest pain, acute coronary syndrome has been ruled out, appears to be musculoskeletal on exam Coronary artery disease with previous PCI 3, CABG 2: right internal mammary artery to RCA and saphenous vein graft of the aorta to the second obtuse marginal artery, 2018 History of mechanical mitral valve replacement, maze procedure, on Coumadin Hyperlipidemia Hypertension Obstructive sleep apnea GERD PLAN Troponin negative x 3, no evidence of ischemia on EKG. Patient with significant discomfort with palpation to the chest and back possibly musculoskeletal chest wall pain, ACS unlikely Continue imdur Continue home cardiac medications No further inpatient workup from a cardiology perspective Ok to discharge from a cardiology perspective, close follow up outpatient with Dr. Valles. Nurse Practitioner note has been reviewed, I agree with a documented findings and plan of care. Patient was seen and examined. Objective - Vital Signs Vital signs: Vital Signs Temp 97.7 F 07/31/22 04:00 Pulse 75 11/21/22 04:00 Resp 18 07/31/22 04:00 BP 125/70 07/31/22 04:00 Pulse Ox 95 07/31/22 04:00 FiO2 30 07/30/22 09:22 Intake & Output 07/30/22 07/30/22 07/31/22 06:59 18:59 06:59 Intake Total 0 600 Output Total 1274 004 3579 Balance -1700 -550 -2500 Weight 130.3 kg 131.9 kg Intake: Oral 0 600 Output: Urine 2231 570 5411 Other: Voiding Method Urinal # Voids 1 3 - Labs CBC & Chem 7: 07/30/22 11:02 07/30/22 11:02 Labs: Abnormal Lab Results - Last 24 Hours (Table) 07/30/22 07/30/22 Range/Units 11:02 11:02 PT 30.3 H (9.0-12.0) sec INR 3.0 H (<1.2) Sodium 135 L (137-145) mmol/L Creatinine 0.63 L (0.66-1.25) mg/dL Glucose 130 H (74-99) mg/dL
--- NOTE | 2022-07-31 12:12 | CA ---
Transthoracic Echo Report Name: Tristen Hare Age: 57 Gender: M : 1965 Exam Date: 07/31/2022 10:07 Exam Location: [facility] Ht (in): 72 Wt (lb): 290 Ordering Physician: Diya Riggs Attending/Referring Phys: Legal Cashier Ai Aguilar RDCS Procedure CPT: Indications: CP and hx of mitral valve replacement Cardiac Hx: Technical Quality: Technically difficult study Contrast 1: Lumason Total Dose (mL): 4 Contrast 2: Total Dose (mL): MEASUREMENTS (Male / Female) Normal Values 2D ECHO LV Diastolic Diameter PLAX 5.9 cm 4.2 - 5.9 / 3.9 - 5.3 cm LV Systolic Diameter PLAX 5.3 cm IVS Diastolic Thickness 0.9 cm 0.6 - 1.0 / 0.6 - 0.9 cm LVPW Diastolic Thickness 2.7 cm 0.6 - 1.0 / 0.6 - 0.9 cm LV Relative Wall Thickness 0.6 RV Internal Dim ED PLAX 2.6 cm M-MODE Aortic Root Diameter MM 4.1 cm DOPPLER MV Peak Velocity 188.2 cm/s MV Peak Gradient 14.2 mmHg MV Mean Velocity 103.0 cm/s MV Mean Gradient 4.9 mmHg MV Velocity Time Integral 45.6 cm MV Area PHT 2.1 cm??? MV E' Velocity 8.4 cm/s TR Peak Velocity 254.4 cm/s TR Peak Gradient 25.9 mmHg Right Ventricular Systolic Press 30.9 mmHg FINDINGS Left Ventricle Left ventricular ejection fraction is estimated at 50-55%. Right Ventricle Normal right ventricular size and function. Right Atrium Normal right atrial size. Left Atrium Normal left atrial size. Mitral Valve MV Replacment 2017. peak gradient 14mmHg mean gradient 4.9mmHg.mild mitral regurgitation. Aortic Valve Aortic valve not well visualized. Tricuspid Valve Structurally normal tricuspid valve. Mild tricuspid regurgitation. Pulmonic Valve Pulmonic valve not well visualized. Pericardium Pericardial effusion. Aorta Normal size aortic root and proximal ascending aorta. CONCLUSIONS Left ventricular ejection fraction 50-55% Normally functioning bioprosthetic mitral valve replacement with mean gradient 4.9 mmHg with a heart rate of 70 bpm Mild tricuspid regurgitation No pericardial effusion Previewed by: Dr. Dick Vogel DO (Electronically Signed) Final Date: 31 July 2022 12:11
[2022-07-31] MEDS: ACETAMINOPHEN TAB 325 MG TAB PO PRN ×2 (12:32→20:48)
[2022-07-31] MEDS ORDERED: WARFARIN 7.5 MG TAB PO SCH (17:00)
[2022-07-31 17:06] LABS: Chol/HDL Ratio 3.83 Ratio; LDL Cholesterol,Calculated 59.5 mg/dL (0.0-131.0)
[2022-07-31] MEDS: ATORVASTATIN 80 MG TAB PO SCH (20:48)
[2022-08-01 04:20] VITALS: TEMP 97.2
[2022-08-01] MEDS: METOPROLOL TARTRATE 25 MG TAB PO SCH (06:33)
[2022-08-01] MEDS: ACETAMINOPHEN TAB 325 MG TAB PO PRN (06:35)
[2022-08-01 08:01] VITALS: BP 126/65; RESP 16
[2022-08-01] MEDS: LOSARTAN 25 MG TAB PO SCH (08:01)
[2022-08-01] MEDS: PANTOPRAZOLE 40 MG TABLET PO SCH (08:02)
[2022-08-01] MEDS: ISOSORBIDE MONONITRATE ER 60 MG TAB.ER.24H PO SCH (08:02)
[2022-08-01] MEDS: SPIRONOLACTONE 25 MG TAB PO SCH (08:02)
[2022-08-01] MEDS: ASPIRIN 81 MG PO SCH (08:02)
[2022-08-01] MEDS: SERTRALINE 50 MG TAB PO SCH (08:02)
[2022-08-01] MEDS: FUROSEMIDE 40 MG TAB PO SCH (08:03)
[2022-08-01] MEDS: POTASSIUM CHLORIDE ER 10 MEQ TAB.ER.PRT PO SCH (08:05)
[2022-08-01 08:24] LABS: HCT 39.7 % (39.0-53.0); HGB 13.5 gm/dL (13.0-17.5); INR 3.1 (<1.2); MCH 30.8 pg (25.0-35.0); MCHC 33.9 g/dL (31.0-37.0); MCV 90.6 fL (80.0-100.0); Mean Platelet Volume 8.9; Platelet Count 190 k/uL (150-450); Prothrombin Time 30.7 sec (9.0-12.0); RBC 4.37 m/uL (4.30-5.90); RDW 12.6 % (11.5-15.5); WBC 5.7 k/uL (3.8-10.6)
[2022-08-01] MEDS: IPRATROPIUM 0.5 MG/2.5 ML NEBU INHALATION SCH ×2 (08:25→11:53)
[2022-08-01] MEDS: FORMOTEROL FUMARATE 20 MCG/2 ML NEBU INHALATION SCH (08:25)
--- NOTE | 2022-08-01 08:27 | P.DS ---
Providers Date of admission: 07/29/22 22:34 Attending physician: Chandler Valderrama Consults: 07/29/22 22:30 Consult Physician Routine Consulting Provider: [facility] Consult Reason/Comments: Unstable angina Do you want consulting provider notified?: Yes, Notify in am Primary care physician: Chandler Valderrama [facility] Course: This is a 57-year-old white male with history of COPD chronic atrial fibrillat ion who has an element of chest pain and shortness of breath. The patient was admitted and ended up having ultrasound with echocardiogram. He also had element of right lower quadrant pain. No cholecystitis was noted. Evaluation by cardiology resulted in no significant new findings. We increase his nitrates and he was discharged in stable condition. Prognosis is guarded secondary to multiple comorbidities and he is under the process of getting a medical disability for so security. He'll follow-up with me in 5-7 days Patient Condition at Discharge: Stable Plan - Discharge Summary Discharge Rx Participant: No New Discharge Prescriptions: New Isosorbide Mononitrate ER [Imdur] 60 mg PO DAILY #30 tab Continue Multivitamin [Men's Multi-Vitamin] 1 tab PO DAILY Sertraline [Zoloft] 50 mg PO DAILY Magnesium Oxide [Mag-Ox] 500 mg PO W/BRKFST Pantoprazole [Protonix] 40 mg PO DAILY Albuterol Nebulized [Ventolin Nebulized] 2.5 mg INHALATION RT-QID PRN PRN Reason: Shortness Of Breath Tiotropium Br/Olodaterol HCl [Stiolto Respimat Inhal [place]] 2 puff INHALATION RT-DAILY Losartan [Cozaar] 75 mg PO DAILY Furosemide [Lasix] 60 mg PO DAILY Furosemide [Lasix] 40 mg PO DAILY Aspirin EC [Ecotrin Low Dose] 81 mg PO DAILY Warfarin [Coumadin] 10 mg PO SUFR@1700 Albuterol Sulfate [Proair Hfa] 2 puff INHALATION RT-QID PRN PRN Reason: Shortness Of Breath Potassium Chloride ER [K-Dur 10] 10 meq PO DAILY Lansoprazole [Prevacid 24Hr] 15 mg PO DAILY Warfarin [Coumadin] 7.5 mg PO MOTUWETHSA@1700 Spironolactone [Aldactone] 25 mg PO DAILY Atorvastatin [Lipitor] 40 mg PO HS Metoprolol Tartrate [Lopressor] 25 mg PO AC-BID Discontinued Isosorbide Mononitrate ER [Imdur] 30 mg PO DAILY Discharge Medication List Multivitamin [Men's Multi-Vitamin] 1 tab PO DAILY 01/22/14 [History] Magnesium Oxide [Mag-Ox] 500 mg PO W/BRKFST 05/20/19 [History] Sertraline [Zoloft] 50 mg PO DAILY 05/20/19 [History] Pantoprazole [Protonix] 40 mg PO DAILY 11/08/20 [History] Albuterol Sulfate [Proair Hfa] 2 puff INHALATION RT-QID PRN 06/20/21 [History] Potassium Chloride ER [K-Dur 10] 10 meq PO DAILY 11/23/21 [History] Albuterol Nebulized [Ventolin Nebulized] 2.5 mg INHALATION RT-QID PRN 07/30/22 [History] Aspirin EC [Ecotrin Low Dose] 81 mg PO DAILY 07/30/22 [History] Atorvastatin [Lipitor] 40 mg PO HS 07/30/22 [History] Furosemide [Lasix] 40 mg PO DAILY 07/30/22 [History] Furosemide [Lasix] 60 mg PO DAILY 07/30/22 [History] Lansoprazole [Prevacid 24Hr] 15 mg PO DAILY 07/30/22 [History] Losartan [Cozaar] 75 mg PO DAILY 07/30/22 [History] Metoprolol Tartrate [Lopressor] 25 mg PO AC-BID 07/30/22 [History] Spironolactone [Aldactone] 25 mg PO DAILY 07/30/22 [History] Tiotropium Br/Olodaterol HCl [Stiolto Respimat Inhal [place]] 2 puff INHALATION RT-DAILY 07/30/22 [History] Warfarin [Coumadin] 7.5 mg PO MOTUWETHSA@1700 07/30/22 [History] Warfarin [Coumadin] 10 mg PO SUFR@1700 07/30/22 [History] Isosorbide Mononitrate ER [Imdur] 60 mg PO DAILY #30 tab 08/01/22 [Rx] Follow up Appointment(s)/Referral(s): Lily Valles MD [STAFF PHYSICIAN] - 1 Week Chandler Valderrama MD [Primary Care Provider] - 1 Week Discharge Disposition: HOME SELF-CARE
[2022-08-01 08:41] LABS: ALT 46 U/L (4-49); AST 41 U/L (17-59); African American GFR (CKD) >90 (>60 ml/min/1.73 sqM); Albumin 4.5 g/dL (3.5-5.0); Alkaline Phosphatase 101 U/L (38-126); Anion Gap 8 mmol/L; Blood Urea Nitrogen 12 mg/dL (9-20); Carbon Dioxide 30 mmol/L (22-30); Chloride 99 mmol/L (98-107); Glucose 156 mg/dL (74-99); Non-African American GFR(CKD) >90 (>60 ml/min/1.73 sqM); Potassium 4.1 mmol/L (3.5-5.1); Sodium 137 mmol/L (137-145); Total Bilirubin 1.2 mg/dL (0.2-1.3); Total Protein 6.9 g/dL (6.3-8.2)
[2022-08-01 12:07] VITALS: PULSE 76
== END 2022-08-01 12:48 | disposition home or self-care (01) | DRG 313 ==
LOC: EC 19:10 → 3SCARD 22:34
PROVIDERS: ADMIT Family Medicine; ATTEND Family Medicine
DX: R07.89 Other chest pain (principal); I48.20 Chronic atrial fibrillation, unspecified; Z88.0 Allergy status to penicillin; E66.9 Obesity, unspecified; E78.5 Hyperlipidemia, unspecified; I25.10 Atherosclerotic heart disease of native coronary artery without angina pectoris; I48.0 Paroxysmal atrial fibrillation; F10.10 Alcohol abuse, uncomplicated; G47.33 Obstructive sleep apnea (adult) (pediatric); K21.9 Gastro-esophageal reflux disease without esophagitis; I11.0 Hypertensive heart disease with heart failure; I44.0 Atrioventricular block, first degree; I45.10 Unspecified right bundle-branch block; I50.9 Heart failure, unspecified; I71.40 Abdominal aortic aneurysm, without rupture, unspecified; J44.9 Chronic obstructive pulmonary disease, unspecified; Z79.01 Long term (current) use of anticoagulants; Z79.82 Long term (current) use of aspirin; Z79.899 Other long term (current) drug therapy; Z87.891 Personal history of nicotine dependence; Z95.1 Presence of aortocoronary bypass graft; Z95.2 Presence of prosthetic heart valve; Z95.5 Presence of coronary angioplasty implant and graft; Z87.19 Personal history of other diseases of the digestive system
CPT/HCPCS: 36415; 71275; 74174; 76705; 80048; 80053; 80061; 80320; 83735; 83880; 84484; 85025; 85027; 85610; 85730; 93005; 93306; 94640; 94660; 94760; 96365; 96366; 96375; 99291

== ENCOUNTER 2022-12-09 19:51 | Observation (INO) | payer OTHER ==
[2022-12-09] MEDS ORDERED: ASPIRIN 81 MG PO STA (20:01)
--- NOTE | 2022-12-09 20:13 | ED ---
General Adult HPI - General Chief complaint: Chest Pain Stated complaint: [place],chest pain Time Seen by Provider: 12/09/22 19:58 Source: patient, RN notes reviewed, old records reviewed Mode of arrival: ambulatory Limitations: no limitations - History of Present Illness Initial comments: Nontoxic-appearing 57-year-old male, alert and oriented 4 presents to the emergency room with complaints of chest pain. Patient states the pain started around 7 PM this evening when he was playing [email or web address]. Family at bedside states that he had the chest pain prior to playing the game. Patient states he took 5 sublingual nitros without waiting a full 5 minutes between doses with no relief. Denies any diaphoresis. No nausea vomiting. No dizziness. No fevers. States he does feel short of breath. He's had similar pain like this in the past however this seems worse. He states that he has seen Dr. Valles his family psychologist and they are unable determine the cause of his repeated chest pain. He is scheduled to [facility] upcoming but does not remember when his appointment is. He did take a baby aspirin today and his Coumadin. -: hour(s) (1) Location: chest Radiation: non-radiation Severity scale (1-10): 9 Quality: constant, other (heavy) Consistency: constant Improves with: none Associated Symptoms: shortness of breath Treatments Prior to Arrival: other (nitro) - Related Data Home Medications Medication Instructions Recorded Confirmed Multivitamin [Men's Multi-Vitamin] 1 tab PO DAILY 01/22/14 12/09/22 Magnesium Oxide [Mag-Ox] 500 mg PO DAILY 05/20/19 12/09/22 Sertraline [Zoloft] 50 mg PO DAILY 05/20/19 12/09/22 Pantoprazole [Protonix] 40 mg PO DAILY 11/08/20 12/09/22 Albuterol Sulfate [Proair Hfa] 2 puff INHALATION RT-QID PRN 06/20/21 12/09/22 Potassium Chloride ER [K-Dur 10] 10 meq PO DAILY 11/23/21 12/09/22 Albuterol Nebulized [Ventolin 2.5 mg INHALATION RT-QID PRN 07/30/22 12/09/22 Nebulized] Aspirin EC [Ecotrin Low Dose] 81 mg PO DAILY 07/30/22 12/09/22 Atorvastatin [Lipitor] 40 mg PO HS 07/30/22 12/09/22 Furosemide [Lasix] 40 mg PO DAILY@1700 07/30/22 12/09/22 Furosemide [Lasix] 60 mg PO DAILY 07/30/22 12/09/22 Losartan [Cozaar] 75 mg PO HS@2100 07/30/22 12/09/22 Metoprolol Tartrate [Lopressor] 25 mg PO BID@0900,2100 07/30/22 12/09/22 Spironolactone [Aldactone] 25 mg PO DAILY 07/30/22 12/09/22 Warfarin [Coumadin] 7.5 mg PO SUTUTHSA@1700 07/30/22 12/09/22 Warfarin [Coumadin] 10 mg PO MOWEFR@1700 07/30/22 12/09/22 Empagliflozin [Jardiance] 25 mg PO DAILY 12/09/22 12/09/22 Fluticasone/Umeclidin/Vilanter 1 puff INHALATION RT-DAILY 12/09/22 12/09/22 [Trelejacoby Ellipta 100-62.5-25] Insulin Glargine,Hum.rec.anlog 20 units SQ DIRECTED 12/09/22 12/09/22 [Lantus Solostar Pen] Isosorbide Mononitrate ER [Imdur] 30 mg PO DAILY 12/09/22 12/09/22 Ranolazine [Ranexa] 500 mg PO BID@0900,2100 12/09/22 12/09/22 metFORMIN HCL [Glucophage] 500 mg PO BID@0900,1700 12/09/22 12/09/22 Allergies Allergy/AdvReac Type Severity Reaction Status Date / Time Penicillins Allergy Unknown Verified 12/09/22 22:09 Childhood Review of Systems ROS Statement: Those systems with pertinent positive or pertinent negative responses have been documented in the HPI. ROS Other: All systems not noted in ROS Statement are negative. Past Medical History Past Medical History: Atrial Fibrillation, Coronary Artery Disease (CAD), Chest Pain / Angina, Heart Failure, GERD/Reflux, Hyperlipidemia, Hypertension, Pneumonia, Sleep Apnea/CPAP/BIPAP Additional Past Medical History / Comment(s): DIVERTICULITIS. ALEISHA with Cpap use History of Any Multi-Drug Resistant Organisms: None Reported Past Surgical History: Appendectomy, Coronary Bypass/CABG, Heart Catheterization With Stent Additional Past Surgical History / Comment(s): 2018 PCI with stent, 2018 CABG 2 vessel with mitral valve replacement, cardioversion x 3, DYLAN x2, EGD, colonoscopy, stress test done Past Anesthesia/Blood Transfusion Reactions: No Reported Reaction Date of Last Stent Placement:: 01/22/18 Past Psychological History: No Psychological Hx Reported Smoking Status: Former smoker Past Alcohol Use History: None Reported, Occasional Past Drug Use History: None Reported - Past Family History Father Family Medical History: Congestive Heart Failure (CHF) Additional Family Medical History / Comment(s): Father of CHF at the age of 68yrs. Mother Family Medical History: No Reported History Additional Family Medical History / Comment(s): Mother at the age of 62 or 63 yrs from myasthenia gravis. Brother(s) Family Medical History: Coronary Artery Disease (CAD) Additional Family Medical History / Comment(s): ONE BROTHER HAD CABG Sister(s) Family Medical History: Coronary Artery Disease (CAD) Additional Family Medical History / Comment(s): ONE SISTER HAS HEART STENTS. ONE SISTER HAS HAD CABG General Exam Limitations: no limitations General appearance: alert, in no apparent distress Head exam: Present: atraumatic, normocephalic Eye exam: Present: normal appearance. Absent: scleral icterus, conjunctival injection, periorbital swelling ENT exam: Present: mucous membranes moist Neck exam: Present: full ROM. Absent: tenderness, meningismus Respiratory exam: Present: normal lung sounds bilaterally. Absent: respiratory distress, wheezes, rales, accessory muscle use Cardiovascular Exam: Present: regular rate, normal rhythm GI/Abdominal exam: Present: soft. Absent: tenderness, rigid Extremities exam: Present: normal capillary refill. Absent: tenderness, pedal edema, calf tenderness Back exam: Absent: rash noted Neurological exam: Present: alert, oriented X3 Psychiatric exam: Present: normal affect, normal mood Skin exam: Present: warm, dry, normal color. Absent: cyanosis, diaphoretic, petechiae, pallor Course Vital Signs 12/09/22 12/09/22 12/10/22 19:53 23:00 01:31 Temperature 97.6 F 98.0 F Pulse Rate 83 87 79 Respiratory 24 18 26 H Rate Blood Pressure 167/81 166/78 112/65 O2 Sat by Pulse 96 95 95 Oximetry EKG Findings - EKG Results: EKG: sinus rhythm (Ventricular rate 79, TX interval 0.253, QRS 0.136, QTC 0.440, normal axis; first-degree block), not changed from: (08/02/2022) Medical Decision Making - Medical Decision Making Labs show no evidence of leukocytosis. D-dimer is negative. Troponin 0.028. BNP 160 EKG today shows sinus rhythm with first-degree AV block. Ventricular rate 79, TX interval 0.253, QRS 0.136, QTC 0.440, normal axis. No significant change compared to old 08/02/2022 Patient does have a significant medical history including coronary artery bypass graft in 2018, A. fib, coronary artery disease, heart failure, morbid obesity, hypertension and unstable angina. Last echo performed 07/31/2022 showing ejection fraction 50-55%, normal functioning bioprosthetic mitral valve replacement. Mild tricuspid regurgitation. Chest x-ray interpreted by me shows sternal wires intact, trachea midline, bibasally pulmonary congestion. Radiologist interpretation cardiomegaly with mild pulmonary vascular congestion correlate with BNP for congestive heart failure. Patient was given a dose of Lasix. Patient will be placed in observation for cardiology consult. Case discussed with Nereida Sanders. Attending is Dr. Gomez. Was pt. sent in by a medical professional or institution ([facility], HISTOLOGY MANAGER, urgent care, hospital, or half-way...) When possible be specific @ -[No] Did you speak to anyone other than the patient for history (EMS, parent, family, police, friend...)? What history was obtained from this source @ -[No] Did you review nursing and triage notes (agree or disagree)? Why? @ -[I reviewed and agree with nursing and triage notes] Were old charts reviewed (outside hosp., previous admission, EMS record, old EKG, old radiological studies, urgent care reports/EKG's, half-way records)? Report findings @ -Yes as above, EKG, echo report Differential Diagnosis (chest pain, altered mental status, abdominal pain women, abdominal pain men, vaginal bleeding, weakness, fever, dyspnea, syncope, headache, dizziness, GI bleed, back pain, seizure, CVA, palpatations, mental health, musculoskeletal)? @ -Differential Chest Pain: Stable Angina, Unstable Angina, STEMI, NSTEMI Aortic Dissection, Pneumothorax, Musculoskeletal, Esophageal Spasm GERD, Cholecystitis, Pancreatitis, Zoster, this is not meant to be an all-inclusive list. EKG interpreted by me (3pts min.). @ -[As above] X-rays interpreted by me (1pt min.). @ -Yes as above CT interpreted by me (1pt min.). @ -[None done] U/S interpreted by me (1pt. min.). @ -[None done] What testing was considered but not performed or refused? (CT, X-rays, U/S, labs)? Why? @ -[None] What meds were considered but not given or refused? Why? @ -Heparin was considered however patient is currently on Coumadin, no acute changes on EKG, troponin within normal limits Did you discuss the management of the patient with other professionals (professionals i.e. , PA, HISTOLOGY MANAGER, lab, RT, psych nurse, social work nurse, elementary school band director, teacher, fisheries enforcement officer, binder caser)? Give summary @ -[No] Was smoking cessation discussed for >3mins.? @ -[No] Was critical care preformed (if so, how long)? @ -[No] Were there social determinants of health that impacted care today? How? (Homelessness, low income, unemployed, alcoholism, drug addiction, transportation, low edu. Level, literacy, decrease access to med. care, usp, rehab)? @ -[No] Was there de-escalation of care discussed even if they declined (Discuss DNR or withdrawal of care, Hospice)? DNR status @ -[No] What co-morbidities impacted this encounter? (DM, HTN, Smoking, COPD, CAD, Cancer, CVA, ARF, Chemo, Hep., AIDS, mental health diagnosis, sleep apnea, morbid obesity)? @ -A. fib, coronary artery disease, congestive heart failure, hypertension, CPAP, unstable angina, obesity Was patient admitted / discharged? Hospital course, mention meds given and route, prescriptions, significant lab abnormalities, going to OR and other pertinent info. @ -Admitted Undiagnosed new problem with uncertain prognosis? @ -[No] Drug Therapy requiring intensive monitoring for toxicity (Heparin, Nitro, Insulin, Cardizem)? @ -[No] Were any procedures done? @ -[No] Diagnosis/symptom? @ -Chest pain Acute, or Chronic, or Acute on Chronic? @ -Acute Uncomplicated (without systemic symptoms) or Complicated (systemic symptoms)? @ -Complicated due to cardiac history Side effects of treatment? @ -[No] Exacerbation, Progression, or Severe Exacerbation? @ -[No] Poses a threat to life or bodily function? How? (Chest pain, USA, NM, pneumonia, PE, COPD, DKA, ARF, appy, cholecystitis, CVA, Diverticulitis, Homicidal, Suicidal, threat to staff... and all critical care pts) @ -Yes chest pain - Lab Data Result diagrams: 12/09/22 20:07 12/09/22 20:07 Lab Results 12/09/22 12/09/22 12/09/22 Range/Units 20:07 20:07 20:07 WBC 9.2 (3.8-10.6) k/uL RBC 4.65 (4.30-5.90) m/uL Hgb 14.3 (13.0-17.5) gm/dL Hct 42.0 (39.0-53.0) % MCV 90.4 (80.0-100.0) fL MCH 30.7 (25.0-35.0) pg MCHC 33.9 (31.0-37.0) g/dL RDW 14.1 (11.5-15.5) % Plt Count 231 (150-450) k/uL MPV 8.6 Neutrophils % (Manual) 61 % Band Neuts % (Manual) 1 % Lymphocytes % (Manual) 29 % Monocytes % (Manual) 9 % Neutrophils # (Manual) 5.70 (1.3-7.7) k/uL Lymphocytes # (Manual) 2.67 (1.0-4.8) k/uL Monocytes # (Manual) 0.83 (0-1.0) k/uL Nucleated RBCs 0 (0-0) /100 WBC Manual Slide Review Performed Anisocytosis (manual) Present PT 25.6 H (9.0-12.0) sec INR 2.6 H (<1.2) APTT 35.9 H (22.0-30.0) sec D-Dimer 0.29 (<0.60) mg/L FEU Sodium 132 L (137-145) mmol/L Potassium 5.1 (3.5-5.1) mmol/L Chloride 98 (98-107) mmol/L Carbon Dioxide 20 L (22-30) mmol/L Anion Gap 14 mmol/L BUN 12 (9-20) mg/dL Creatinine 0.82 (0.66-1.25) mg/dL Est GFR (CKD-EPI)AfAm >90 (>60 ml/min/1.73 sqM) Est GFR (CKD-EPI)NonAf >90 (>60 ml/min/1.73 sqM) Glucose 98 (74-99) mg/dL Calcium 8.7 (8.4-10.2) mg/dL Magnesium 2.0 (1.6-2.3) mg/dL Total Bilirubin 1.5 H (0.2-1.3) mg/dL AST 46 (17-59) U/L ALT 38 (4-49) U/L Alkaline Phosphatase 73 (38-126) U/L Troponin I (0.000-0.034) ng/mL NT-Pro-B Natriuret Pep pg/mL Total Protein 7.5 (6.3-8.2) g/dL Albumin 4.7 (3.5-5.0) g/dL 12/09/22 12/09/22 12/09/22 Range/Units 20:07 20:07 23:13 WBC (3.8-10.6) k/uL RBC (4.30-5.90) m/uL Hgb (13.0-17.5) gm/dL Hct (39.0-53.0) % MCV (80.0-100.0) fL MCH (25.0-35.0) pg MCHC (31.0-37.0) g/dL RDW (11.5-15.5) % Plt Count (150-450) k/uL MPV Neutrophils % (Manual) % Band Neuts % (Manual) % Lymphocytes % (Manual) % Monocytes % (Manual) % Neutrophils # (Manual) (1.3-7.7) k/uL Lymphocytes # (Manual) (1.0-4.8) k/uL Monocytes # (Manual) (0-1.0) k/uL Nucleated RBCs (0-0) /100 WBC Manual Slide Review Anisocytosis (manual) PT (9.0-12.0) sec INR (<1.2) APTT (22.0-30.0) sec D-Dimer (<0.60) mg/L FEU Sodium (137-145) mmol/L Potassium (3.5-5.1) mmol/L Chloride (98-107) mmol/L Carbon Dioxide (22-30) mmol/L Anion Gap mmol/L BUN (9-20) mg/dL Creatinine (0.66-1.25) mg/dL Est GFR (CKD-EPI)AfAm (>60 ml/min/1.73 sqM) Est GFR (CKD-EPI)NonAf (>60 ml/min/1.73 sqM) Glucose (74-99) mg/dL Calcium (8.4-10.2) mg/dL Magnesium (1.6-2.3) mg/dL Total Bilirubin (0.2-1.3) mg/dL AST (17-59) U/L ALT (4-49) U/L Alkaline Phosphatase (38-126) U/L Troponin I 0.028 0.027 (0.000-0.034) ng/mL NT-Pro-B Natriuret Pep 160 pg/mL Total Protein (6.3-8.2) g/dL Albumin (3.5-5.0) g/dL Disposition Clinical Impression: Acute exacerbation of CHF (congestive heart failure), Chest pain Disposition: ADMITTED IP TO THIS [facility] Decision Date: 12/09/22 Decision Time: 21:23
[2022-12-09 20:26] LABS: HGB 14.3 gm/dL (13.0-17.5); MCH 30.7 pg (25.0-35.0); MCHC 33.9 g/dL (31.0-37.0); MCV 90.4 fL (80.0-100.0); Mean Platelet Volume 8.6; Platelet Count 231 k/uL (150-450); RBC 4.65 m/uL (4.30-5.90); RDW 14.1 % (11.5-15.5); WBC 9.2 k/uL (3.8-10.6)
[2022-12-09 20:40] LABS: ALT 38 U/L (4-49); AST 46 U/L (17-59); African American GFR (CKD) >90 (>60 ml/min/1.73 sqM); Albumin 4.7 g/dL (3.5-5.0); Alkaline Phosphatase 73 U/L (38-126); Anion Gap 14 mmol/L; Blood Urea Nitrogen 12 mg/dL (9-20); Calcium 8.7 mg/dL (8.4-10.2); Carbon Dioxide 20 mmol/L (22-30); Chloride 98 mmol/L (98-107); Glucose 98 mg/dL (74-99); INR 2.6 (<1.2); Non-African American GFR(CKD) >90 (>60 ml/min/1.73 sqM); Partial Thromboplastin Time 35.9 sec (22.0-30.0); Prothrombin Time 25.6 sec (9.0-12.0); Sodium 132 mmol/L (137-145); Total Bilirubin 1.5 mg/dL (0.2-1.3); Total Protein 7.5 g/dL (6.3-8.2)
[2022-12-09 20:43] LABS: Potassium 5.1 mmol/L (3.5-5.1)
--- NOTE | 2022-12-09 20:57 | XR ---
EXAMINATION TYPE: XR chest 2V DATE OF EXAM: 12/09/2022 8:30 PM COMPARISON: Chest radiographs from 11/23/2021 TECHNIQUE: XR chest 2V Frontal and lateral views of the chest. CLINICAL INDICATION:Male, 57 years old with history of Chest Pain; FINDINGS: Lungs/Pleura: There is no evidence of pleural effusion, focal consolidation, or pneumothorax. Pulmonary vascularity: Pulmonary vascular congestion. Heart/mediastinum: Cardiomediastinal silhouette is enlarged and stable. Post valve repair changes. L eft atrial appendage occlusion device is present. Musculoskeletal: No acute osseous pathology. Midline sternotomy wires are noted. IMPRESSION: Cardiomegaly and mild pulmonary vascular congestion. Correlate with BNP for congestive heart failure.
[2022-12-09] MEDS ORDERED: HYDROmorphone 0.5 MG/0.5 ML SYRINGE IVP STA (21:19)
[2022-12-09] MEDS ORDERED: FUROSEMIDE 10 MG/ML 10 ML VIAL IV STA (21:38)
[2022-12-09] MEDS ORDERED: NALOXONE 0.4 MG/ML 1 ML VIAL IV PRN (21:46)
[2022-12-09] MEDS ORDERED: ACETAMINOPHEN TAB 325 MG TAB PO PRN (21:46)
[2022-12-09 21:53] LABS: Anisocytosis (M) Present; Band Neutrophils % 1 %; Lymphocytes # (M) 2.67 k/uL (1.0-4.8); Monocytes # (M) 0.83 k/uL (0-1.0); Neutrophils % (M) 61 %; Nucleated Red Blood Cells 0 /100 WBC (0-0); Total Cells Counted 100
[2022-12-10] MEDS ORDERED: MORPHINE SULFATE 4 MG/ML SYRINGE IVP STA (05:54)
[2022-12-10] MEDS ORDERED: ALBUTEROL NEBULIZED 2.5 MG/3 ML INHALATION PRN (07:05)
[2022-12-10] MEDS ORDERED: DEXTROSE 50% SYRINGE 50 ML IVP PRN ×2 (07:09)
[2022-12-10] MEDS ORDERED: FUROSEMIDE 10 MG/ML 4 ML VIAL IV STA (07:29)
--- NOTE | 2022-12-10 07:43 | P.HPIM ---
History of Present Illness This is a pleasant 57 years old male with past medical history of atrial fibrillation on anticoagulation with warfarin, hypertension, diabetes mellitus, hyperlipidemia, sleep apnea, GERD, chronic heart failure, coronary artery disea se status post cardiac cath with stent and CABG with mitral valve replacement He presents because of a chest pain on the right side sharp and to lesser degree across the front chest. Like heaviness which is started last night about 9/10 in severity associated with little cough, patient is markedly elevated with cough. He says his looks similar to previous heart attack pain. Associated with shortness of breath which she states is for 1 week and mild coughing with mild phlegm. Also he felt numbness in his left arm. He denies change in urine or bowel habits, mild headache but no dizziness wea kness or numbness He denies current smoking cigarettes and drinks 5 beers every day and no illicit drugs. Patient is hemodynamically stable, patient is tachypneic with respiratory rate of 20 Labs show an unremarkable CBC, BMP, liver enzymes, INR. Serial troponin are negative with 0.028 and 0.027 and 0.0-5. ProBNP is 160 EKG showing normal sinus rhythm with first-degree AV block on the right of 79. No significant ST-T changes area only mild T-wave inversion in lead III. QTC 440. Chest x-ray: Mild vascular congestion, patient has cardiomegaly, reviewed chest x-ray by myself. I agree with these findings In the emergency room patient received aspirin 324 mg and IV Lasix 60 mg. Review of Systems Review of systems CONSTITUTIONAL: No fever, no malaise, no fatigue. HEENT: No recent visual problems or hearing problems. Denied any sore throat. CARDIOVASCULAR: No orthopnea, PND, no palpitations, no syncope. PULMONARY: No chest wall tenderness, no hemoptysis. GASTROINTESTINAL: No diarrhea, no nausea, no vomiting, no abdominal pain. Normoactive bowel sounds. NEUROLOGICAL: No headaches, no weakness, no numbness. HEMATOLOGICAL: Denies any bleeding or petechiae. GENITOURINARY: Denies any burning micturition, frequency, or urgency. MUSCULOSKELETAL/RHEUMATOLOGICAL: Denies any joint pain, swelling, or any muscle pain. ENDOCRINE: Denies any polyuria or polydipsia. Past Medical History Past Medical History: Atrial Fibrillation, Coronary Artery Disease (CAD), Chest Pain / Angina, Heart Failure, GERD/Reflux, Hyperlipidemia, Hypertension, Pneumonia, Sleep Apnea/CPAP/BIPAP Additional Past Medical History / Comment(s): DIVERTICULITIS. ALEISHA with Cpap use History of Any Multi-Drug Resistant Organisms: None Reported Past Surgical History: Appendectomy, Coronary Bypass/CABG, Heart Catheterization With Stent Additional Past Surgical History / Comment(s): 2017 PCI with stent, 2017 CABG 2 vessel with mitral valve replacement, cardioversion x 3, DYLAN x2, EGD, colonoscopy, stress test done Past Anesthesia/Blood Transfusion Reactions: No Reported Reaction Date of Last Stent Placement:: 01/22/18 Past Psychological History: No Psychological Hx Reported Smoking Status: Former smoker Past Alcohol Use History: None Reported, Occasional Past Drug Use History: None Reported - Past Family History Father Family Medical History: Congestive Heart Failure (CHF) Additional Family Medical History / Comment(s): Father of CHF at the age of 68yrs. Mother Family Medical History: No Reported History Additional Family Medical History / Comment(s): Mother at the age of 62 or 63 yrs from myasthenia gravis. Brother(s) Family Medical History: Coronary Artery Disease (CAD) Additional Family Medical History / Comment(s): ONE BROTHER HAD CABG Sister(s) Family Medical History: Coronary Artery Disease (CAD) Additional Family Medical History / Comment(s): ONE SISTER HAS HEART STENTS. ON E SISTER HAS HAD CABG Medications and Allergies Home Medications Medication Instructions Recorded Confirmed Type Multivitamin [Men's Multi-Vitamin] 1 tab PO DAILY 01/22/14 12/09/22 History Magnesium Oxide [Mag-Ox] 500 mg PO DAILY 05/20/19 12/09/22 History Sertraline [Zoloft] 50 mg PO DAILY 05/20/19 12/09/22 History Pantoprazole [Protonix] 40 mg PO DAILY 11/08/20 12/09/22 History Albuterol Sulfate [Proair Hfa] 2 puff INHALATION RT-QID PRN 06/20/21 12/09/22 History Potassium Chloride ER [K-Dur 10] 10 meq PO DAILY 11/23/21 12/09/22 History Albuterol Nebulized [Ventolin 2.5 mg INHALATION RT-QID PRN 07/30/22 12/09/22 History Nebulized] Aspirin EC [Ecotrin Low Dose] 81 mg PO DAILY 07/30/22 12/09/22 History Atorvastatin [Lipitor] 40 mg PO HS 07/30/22 12/09/22 History Furosemide [Lasix] 40 mg PO DAILY@1700 07/30/22 12/09/22 History Furosemide [Lasix] 60 mg PO DAILY 07/30/22 12/09/22 History Losartan [Cozaar] 75 mg PO HS@209907/30/22 12/09/22 History Metoprolol Tartrate [Lopressor] 25 mg PO BID@0900,209907/30/22 12/09/22 History Spironolactone [Aldactone] 25 mg PO DAILY 07/30/22 12/09/22 History Warfarin [Coumadin] 7.5 mg PO SUTUTHSA@1700 07/30/22 12/09/22 History Warfarin [Coumadin] 10 mg PO MOWEFR@1700 07/30/22 12/09/22 History Empagliflozin [Jardiance] 25 mg PO DAILY 12/09/22 12/09/22 History Fluticasone/Umeclidin/Vilanter 1 puff INHALATION RT-DAILY 12/09/22 12/09/22 History [Trelegy Ellipta 100-62.5-25] Insulin Glargine,Hum.rec.anlog 20 units SQ DIRECTED 12/09/22 12/09/22 History [Lantus Solostar Pen] Isosorbide Mononitrate ER [Imdur] 30 mg PO DAILY 12/09/22 12/09/22 History Ranolazine [Ranexa] 500 mg PO BID@0900,209912/09/22 12/09/22 History metFORMIN HCL [Glucophage] 500 mg PO BID@0900,1700 12/09/22 12/09/22 History Allergies Allergy/AdvReac Type Severity Reaction Status Date / Time Penicillins Allergy Unknown Verified 12/09/22 22:09 Childhood Physical Exam Vitals: Vital Signs Temp Pulse Resp BP Pulse Ox 12/10/22 05:15 98.0 F 79 20 140/82 97 12/10/22 01:31 98.0 F 79 26 H 112/65 95 12/09/22 23:00 87 18 166/78 95 12/09/22 19:53 97.6 F 83 24 167/81 96 Intake and Output 12/09/22 12/09/22 12/10/22 14:59 22:59 06:59 Other: Weight 124.284 kg GENERAL: The patient is alert and oriented x3, not in any acute distress. Well developed, well nourished. HEENT: Pupils are round and equally reacting to light. EOMI. No scleral icterus. No conjunctival pallor. Normocephalic, atraumatic. No pharyngeal erythema. No thyromegaly. CARDIOVASCULAR: S1 and S2 present. No murmurs, rubs, or gallops. -PULMONARY: Chest is clear to auscultation, some limited air entry and bilateral scattered wheezing mild bilateral basalr crackles. ABDOMEN: Soft, nontender, nondistended, normoactive bowel sounds. No palpable organomegaly. MUSCULOSKELETAL: No joint swelling or deformity. -EXTREMITIES: No cyanosis, clubbing,mild bilateral pitting leg NEUROLOGICAL: Gross neurological examination did not reveal any focal deficits. SKIN: No rashes. no petechiae. Results CBC & Chem 7: 12/09/22 20:07 12/09/22 20:07 Labs: Abnormal Lab Results - Last 24 Hours (Table) 12/09/22 12/09/22 Range/Units 20:07 20:07 PT 25.6 H (9.0-12.0) sec INR 2.6 H (<1.2) APTT 35.9 H (22.0-30.0) sec Sodium 132 L (137-145) mmol/L Carbon Dioxide 20 L (22-30) mmol/L Total Bilirubin 1.5 H (0.2-1.3) mg/dL Assessment and Plan Assessment: Chest pain, rule out coronary causes Acute on chronic heart failure Acute COPD exacerbation Hypertension Diabetes mellitus Hyperlipidemia paroxysmal atrial fibrillation on Coumadin History of mitral valve replacement History of coronary artery disease status post CABG and stents 2 History of sleep apnea History of GERD Plan: Continue with aspirin Continue with Lasix, 40 mg IV 1 and then continue with oral dose 40 mg twice a day. Monitor creatinine and troponin output Continue with Lipitor 40 mg Start Solu-Medrol 40 mg twice daily and doxycycline with pulmonary team consult Patient is on jaridance at home which is non formulary in this facility,use farxiga instead. Resume insulin was 20 units of Lantus at home going to resume Levemir 20 and insulin sliding scale. Resume metformin Continue with nothing by mouth and losartan, metoprolol Cardiology consult on Coumadin which will be resumed at home dose with daily INR. Hold for INR of more than 3.0 Labs and medication were reviewed.. Continue same treatment. Continue with symptomatic treatment. Resume home medication. Monitor labs and vitals. DVT and GI prophylaxis. Further recommendations as per clinical course of the patient DVT prophylaxis: On warfarin GI Prophylaxis: Ppi Prognosis is guarded
[2022-12-10 07:55] LABS: Glucose,Whole Blood 114 mg/dL (70-110)
[2022-12-10] MEDS ORDERED: INSULIN DETEMIR (LEVEMIR) 100 UNIT/ML SYR SQ ONE (08:00)
[2022-12-10] MEDS ORDERED: methylPREDNISolone SOD SUCCI 40 MG/ML 1 ML VIAL IV SCH ×2 (08:00→09:00)
[2022-12-10] MEDS: INSULIN ASPART (NovoLOG) 100 UNIT/ML VIAL SQ SCH ×4 (08:00→21:19)
[2022-12-10 08:06] LABS: INR 2.5 (<1.2); Prothrombin Time 24.8 sec (9.0-12.0)
[2022-12-10 08:36] LABS: Glucose,Whole Blood 104 mg/dL (70-110)
[2022-12-10] MEDS: SYMBICORT 160-4.5 MCG INHALER INHALATION SCH ×2 (08:43→20:50)
[2022-12-10] MEDS ORDERED: DAPAGLIFLOZIN PROPANEDIOL 5 MG TABLET PO SCH (09:00)
[2022-12-10] MEDS ORDERED: FUROSEMIDE 10 MG/ML 4 ML VIAL IV SCH (09:00)
[2022-12-10] MEDS ORDERED: HEPARIN SODIUM,PORCINE/PF 5,000 UNIT/0.5 ML SYRINGE SQ SCH (09:00)
[2022-12-10] MEDS: PANTOPRAZOLE 40 MG TABLET PO SCH (09:53)
[2022-12-10] MEDS: DAPAGLIFLOZIN PROPANEDIOL 10 MG TABLET PO SCH (09:54)
[2022-12-10] MEDS: ISOSORBIDE MONONITRATE ER 30 MG TAB.ER.24H PO SCH (09:54)
[2022-12-10] MEDS: ASPIRIN 81 MG PO SCH (09:54)
[2022-12-10] MEDS: DOXYCYCLINE 100 MG CAP PO SCH ×2 (09:54→21:19)
[2022-12-10] MEDS: RANOLAZINE 500 MG TAB.ER.12H PO SCH ×2 (09:55→21:20)
[2022-12-10] MEDS: THIAMINE 100 MG TAB PO SCH (09:55)
[2022-12-10] MEDS: POTASSIUM CHLORIDE ER 10 MEQ TAB.ER.PRT PO SCH (09:55)
[2022-12-10] MEDS: METOPROLOL TARTRATE 25 MG TAB PO SCH ×2 (09:55→21:20)
[2022-12-10] MEDS: MAGNESIUM OXIDE 400 MG TAB PO SCH (09:55)
[2022-12-10] MEDS: metFORMIN 500 MG TAB PO SCH ×2 (09:55→17:45)
[2022-12-10] MEDS: SERTRALINE 50 MG TAB PO SCH (09:55)
[2022-12-10] MEDS: SPIRONOLACTONE 25 MG TAB PO SCH (09:55)
[2022-12-10] MEDS: MORPHINE SULFATE 2 MG/ML SYRINGE IM STA ×2 (11:08→11:14)
[2022-12-10] MEDS: MORPHINE SULFATE 2 MG/ML SYRINGE IVP PRN ×3 (11:13→23:31)
[2022-12-10] MEDS: ALBUTEROL NEBULIZED 2.5 MG/3 ML INHALATION PRN ×3 (11:55→20:50)
[2022-12-10 12:14] LABS: Glucose,Whole Blood 143 mg/dL (70-110)
--- NOTE | 2022-12-10 12:39 | P.CRDCN ---
History of Present Illness Consult date: 12/10/22 Consult reason: chest pain, congestive heart failure History of present illness: HISTORY OF PRESENT ILLNESS: This is a 57-year-old male patient of Dr. Valles with a past medical history significant for coronary artery disease with previous CABG and mitral valve replacement with mechanical valve, hypertension, hyperlipidemia, chronic diastolic heart failure, diabetes mellitus type 2. We have been asked to see the patient in consultation for chest pain and CHF. Yesterday, patient developed heaviness in his chest in the mid section and also a right-sided chest pain that was sharp in nature. He took 5 nitroglycerin with some relief but was not completely gone. He also had sweats with the chest pain. He denies any lightheadedness or dizziness, no fever or chills, no cough, no nausea or vomiting. Patient does complain of a tingling that went throughout his body which he apparently has chronically. Initial blood pressure 166/78. Patient was last seen in the office on . At that time he was recently diagnosed with diabetes and initial hemoglobin A1c was 13.3. Patient was advised to return in 3-4 weeks and consider cardiac catheterization or stress testing to assess perfusion in the LAD distribution. No medication changes were made at that time. * EKG reveals sinus rhythm without acute ST changes. * Chest xray cardiomegaly and mild pulmonary vascular congestion. Correlate BNP for heart failure * Laboratory data: WBC 9.2, hemoglobin 14.3, platelet count 231. INR 2.6. D- dimer 0.29. Sodium 132, potassium 5.1, BUN 12 and creatinine 0.82. Troponin negative 3. Total bilirubin 1.5 otherwise liver function tests are normal. Magnesium 2.0. Pro-calcitonin 0.06. Hemoglobin A1c 9.1 * Current home cardiac medications include aspirin 81 mg daily, atorvastatin 40 mg at bedtime, Jardiance 25 mg daily, Lasix 60 mg in the morning and 40 in the afternoon, Imdur 30 mg daily, losartan 75 mg at bedtime, magnesium oxide 500 mg daily, Lopressor 25 mg twice daily, Ranexa 500 mg twice daily, Aldactone 25 mg daily, Coumadin 10 mg on Sunday and 7.5 mg on the other days. * Echocardiogram 10/27/2022 revealed EF of 55%, mitral valve not well visualized and appears mechanical with gradient of about 6 mm mean, mild mitral regurgitation, no significant pulmonary hypertension * Cardiac catheterization 10/30/2022 revealed dominant RCA calcified chronically occluded left main 50% lesion. LAD heavily calcified with mild to moderate diffuse disease, circumflex occluded, SVG to circumflex and BINTA to RCA are both patent. LVEDP normal. REVIEW OF SYSTEMS: At the time of my exam: CONSTITUTIONAL: Denies fever or chills. HEENT: Denies blurred vision, vision changes, or eye pain. Denies hemoptysis CARDIOVASCULAR: Reports chest pain. Denies orthopnea. Denies PND. Denies palpitations RESPIRATORY: Denies shortness of breath. GASTROINTESTINAL: Denies abdominal pain. Denies nausea or vomiting. HEMATOLOGIC: Denies bleeding disorders. GENITOURINARY: Denies any blood in urine. SKIN: Denies pruitis. Denies rash. PHYSICAL EXAM: VITAL SIGNS: Reviewed. GENERAL: Well-developed in no acute distress. HEENT: Head is normocephalic. Pupils are equal, round. Sclerae anicteric. Mucous membranes of the mouth are moist. Neck supple. No JVD or thyromegaly LUNGS: Respirations even and unlabored. Lungs diminished to auscultation bilaterally. HEART: Regular rate and rhythm. S1 and S2 heard. ABDOMEN: Soft. Nondistended. Nontender. EXTREMITIES: Normal range of motion. No clubbing or cyanosis. Peripheral puls es intact. No lower extremity edema NEUROLOGIC: Awake and alert. Oriented x 3. ASSESSMENT: Chest pain Coronary artery disease with previous CABG and mitral valve replacement with mechanical valve Hypertension Hyperlipidemia Chronic diastolic heart failure with preserved ejection fraction with possible mild exacerbation PLAN: An acute coronary event has been ruled out Resume home cardiac medications Further recommendations pending patient course Nurse practitioner note has been reviewed by physician. Signing provider agrees with the documented findings, assessment, and plan of care. Past Medical History Past Medical History: Atrial Fibrillation, Coronary Artery Disease (CAD), Chest Pain / Angina, Heart Failure, GERD/Reflux, Hyperlipidemia, Hypertension, Pneumonia, Sleep Apnea/CPAP/BIPAP Additional Past Medical History / Comment(s): DIVERTICULITIS. ALEISHA with Cpap use History of Any Multi-Drug Resistant Organisms: None Reported Past Surgical History: Appendectomy, Coronary Bypass/CABG, Heart Catheterization With Stent Additional Past Surgical History / Comment(s): 2018 PCI with stent, 2018 CABG 2 vessel with mitral valve replacement, cardioversion x 3, DYLAN x2, EGD, colonoscopy, stress test done Past Anesthesia/Blood Transfusion Reactions: No Reported Reaction Date of Last Stent Placement:: 01/22/18 Past Psychological History: No Psychological Hx Reported Smoking Status: Former smoker Past Alcohol Use History: None Reported, Occasional Past Drug Use History: None Reported - Past Family History Father Family Medical History: Congestive Heart Failure (CHF) Additional Family Medical History / Comment(s): Father of CHF at the age of 68yrs. Mother Family Medical History: No Reported History Additional Family Medical History / Comment(s): Mother at the age of 62 or 63 yrs from myasthenia gravis. Brother(s) Family Medical History: Coronary Artery Disease (CAD) Additional Family Medical History / Comment(s): ONE BROTHER HAD CABG Sister(s) Family Medical History: Coronary Artery Disease (CAD) Additional Family Medical History / Comment(s): ONE SISTER HAS HEART STENTS. ONE SISTER HAS HAD CABG Medications and Allergies Home Medications Medication Instructions Recorded Confirmed Type Multivitamin [Men's Multi-Vitamin] 1 tab PO DAILY 01/22/14 12/09/22 History Magnesium Oxide [Mag-Ox] 500 mg PO DAILY 05/20/19 12/09/22 History Sertraline [Zoloft] 50 mg PO DAILY 05/20/19 12/09/22 History Pantoprazole [Protonix] 40 mg PO DAILY 11/08/20 12/09/22 History Albuterol Sulfate [Proair Hfa] 2 puff INHALATION RT-QID PRN 06/20/21 12/09/22 History Potassium Chloride ER [K-Dur 10] 10 meq PO DAILY 11/23/21 12/09/22 History Albuterol Nebulized [Ventolin 2.5 mg INHALATION RT-QID PRN 07/30/22 12/09/22 History Nebulized] Aspirin EC [Ecotrin Low Dose] 81 mg PO DAILY 07/30/22 12/09/22 History Atorvastatin [Lipitor] 40 mg PO HS 07/30/22 12/09/22 History Furosemide [Lasix] 40 mg PO DAILY@1700 07/30/22 12/09/22 History Furosemide [Lasix] 60 mg PO DAILY 07/30/22 12/09/22 History Losartan [Cozaar] 75 mg PO HS@2100 07/30/22 12/09/22 History Metoprolol Tartrate [Lopressor] 25 mg PO BID@0900,2100 07/30/22 12/09/22 History Spironolactone [Aldactone] 25 mg PO DAILY 07/30/22 12/09/22 History Warfarin [Coumadin] 7.5 mg PO SUTUTHSA@1700 07/30/22 12/09/22 History Warfarin [Coumadin] 10 mg PO MOWEFR@1700 07/30/22 12/09/22 History Empagliflozin [Jardiance] 25 mg PO DAILY 12/09/22 12/09/22 History Fluticasone/Umeclidin/Vilanter 1 puff INHALATION RT-DAILY 12/09/22 12/09/22 History [Trelejacoby Ellipta 100-62.5-25] Insulin Glargine,Hum.rec.anlog 20 units SQ DIRECTED 12/09/22 12/09/22 History [Lantus Solostar Pen] Isosorbide Mononitrate ER [Imdur] 30 mg PO DAILY 12/09/22 12/09/22 History Ranolazine [Ranexa] 500 mg PO BID@0900,2100 12/09/22 12/09/22 History metFORMIN HCL [Glucophage] 500 mg PO BID@0900,1700 12/09/22 12/09/22 History Allergies Allergy/AdvReac Type Severity Reaction Status Date / Time Penicillins Allergy Unknown Verified 12/09/22 22:09 Childhood Physical Exam Vitals: Vital Signs Temp Pulse Resp BP Pulse Ox 12/10/22 05:15 98.0 F 79 20 140/82 97 12/10/22 01:31 98.0 F 79 26 H 112/65 95 12/09/22 23:00 87 18 166/78 95 12/09/22 19:53 97.6 F 83 24 167/81 96 Intake and Output 12/09/22 12/10/22 12/10/22 22:59 06:59 14:59 Other: Weight 124.284 kg Results 12/09/22 20:07 12/09/22 20:07 Cardiac Enzymes 12/09/22 12/09/22 12/09/22 Range/Units 20:07 20:07 23:13 AST 46 (17-59) U/L Troponin I 0.028 0.027 (0.000-0.034) ng/mL 12/10/22 Range/Units 02:59 AST (17-59) U/L Troponin I 0.025 (0.000-0.034) ng/mL Coagulation 12/09/22 12/10/22 Range/Units 20:07 07:35 PT 25.6 H 24.8 H (9.0-12.0) sec APTT 35.9 H (22.0-30.0) sec CBC 12/09/22 Range/Units 20:07 WBC 9.2 (3.8-10.6) k/uL RBC 4.65 (4.30-5.90) m/uL Hgb 14.3 (13.0-17.5) gm/dL Hct 42.0 (39.0-53.0) % Plt Count 231 (150-450) k/uL Comprehensive Metabolic Panel 12/09/22 Range/Units 20:07 Sodium 132 L (137-145) mmol/L Potassium 5.1 (3.5-5.1) mmol/L Chloride 98 (98-107) mmol/L Carbon Dioxide 20 L (22-30) mmol/L BUN 12 (9-20) mg/dL Creatinine 0.82 (0.66-1.25) mg/dL Glucose 98 (74-99) mg/dL Calcium 8.7 (8.4-10.2) mg/dL AST 46 (17-59) U/L ALT 38 (4-49) U/L Alkaline Phosphatase 73 (38-126) U/L Total Protein 7.5 (6.3-8.2) g/dL Albumin 4.7 (3.5-5.0) g/dL Current Medications Generic Name Dose Route Start Last Admin Trade Name Freq PRN Reason Stop Dose Admin Acetaminophen 650 mg 12/09/22 21:46 12/09/22 22:49 Acetaminophen Tab 325 Mg Tab PO 650 mg Q6HR PRN Administration Mild Pain or Fever > 100.5 Albuterol Sulfate 2.5 mg 12/10/22 07:05 Albuterol Nebulized 2.5 Mg/3 Ml INHALATION RT-QID PRN Shortness Of Breath Aspirin 81 mg 12/10/22 09:00 Aspirin 81 Mg PO DAILY [facility] Atorvastatin Calcium 40 mg 12/10/22 21:00 Atorvastatin 40 Mg Tab PO HS [facility] Budesonide/Formoterol Fumarate 2 puff 12/10/22 08:00 Symbicort 160-4.5 Mcg Inhaler INHALATION RT-BID [facility] Dapagliflozin 5 mg 12/10/22 09:00 Dapagliflozin Propanediol 5 Mg Tablet PO DAILY [facility] Dextrose/Water 25 ml 12/10/22 07:09 Dextrose 50% Syringe 50 Ml IVP PER PROTOCOL PRN Hypoglycemia Protocol Dextrose/Water 50 ml 12/10/22 07:09 Dextrose 50% Syringe 50 Ml IVP PER PROTOCOL PRN Hypoglycemia Protocol Doxycycline Monohydrate 100 mg 12/10/22 09:00 Doxycycline 100 Mg Cap PO 12/11/22 09:01 BID [facility] Protocol Furosemide 40 mg 12/10/22 21:00 Furosemide 40 Mg Tab PO BID@0900,1600 [facility] Insulin Aspart 0 unit 12/10/22 07:30 12/10/22 08:00 Insulin Aspart (Novolog) 100 Unit/Ml Vial SQ Not Given ACHS [facility] Protocol Insulin Detemir 20 unit 12/11/22 07:00 Insulin Detemir (Levemir) 100 Unit/Ml Syr SQ DAILY@0700 [facility] Isosorbide Mononitrate 30 mg 12/10/22 09:00 Isosorbide Mononitrate Er 30 Mg Tab.Er.24h PO DAILY [facility] Losartan Potassium 75 mg 12/10/22 21:00 Losartan 25 Mg Tab PO HS@2100 [facility] Metformin HCl 500 mg 12/10/22 09:00 Metformin 500 Mg Tab PO BID@0900,1700 [facility] Methylprednisolone Sodium Succinate 40 mg 12/10/22 08:00 Methylprednisolone Sod Succi 40 Mg/Ml 1 Ml Vial IV Q8HR [facility] Metoprolol Tartrate 25 mg 12/10/22 09:00 Metoprolol Tartrate 25 Mg Tab PO BID@0900,2100 [facility] Miscellaneous Information 0 each 12/10/22 07:25 Warfarin Per Pharmacy MISCELLANE DIRECTED PRN PER PROTOCOL Naloxone HCl 0.2 mg 12/09/22 21:46 Naloxone 0.4 Mg/Ml 1 Ml Vial IV Q2M PRN Opioid Reversal Non-Formulary Medication 25 mg 12/10/22 09:00 Empagliflozin [Jardiance] PO DAILY [facility] Non-Formulary Medication 500 mg 12/10/22 09:00 Magnesium Oxide PO DAILY [facility] Pantoprazole Sodium 40 mg 12/10/22 07:30 Pantoprazole 40 Mg Tablet PO AC-BRKFST [facility] Potassium Chloride 10 meq 12/10/22 09:00 Potassium Chloride Er 10 Meq Tab.Er.Prt PO DAILY [facility] Ranolazine 500 mg 12/10/22 09:00 Ranolazine 500 Mg Tab.Er.12h PO BID@0900,2100 [facility] Sertraline HCl 50 mg 12/10/22 09:00 Sertraline 50 Mg Tab PO DAILY [facility] Spironolactone 25 mg 12/10/22 09:00 Spironolactone 25 Mg Tab PO DAILY [facility] Thiamine HCl 100 mg 12/10/22 09:00 Thiamine 100 Mg Tab PO DAILY [facility] Warfarin Sodium 7.5 mg 12/10/22 17:00 Warfarin 7.5 Mg Tab PO SUTUTHSA@1700 [facility] Protocol Warfarin Sodium 10 mg 12/11/22 17:00 Warfarin 10 Mg Tab PO MOWEFR@1700 [facility] Protocol Intake and Output 12/09/22 12/10/22 12/10/22 22:59 06:59 14:59 Other: Weight 124.284 kg 12/09/22 20:07 12/09/22 20:07
[2022-12-10 16:54] LABS: Glucose,Whole Blood 215 mg/dL (70-110)
[2022-12-10] MEDS ORDERED: WARFARIN 7.5 MG TAB PO SCH (17:00)
[2022-12-10] MEDS: FUROSEMIDE 40 MG TAB PO SCH (17:52)
[2022-12-10] MEDS ORDERED: ATORVASTATIN 40 MG TAB PO SCH (21:00)
[2022-12-10] MEDS ORDERED: LOSARTAN 25 MG TAB PO SCH (21:00)
[2022-12-10 21:09] LABS: Glucose,Whole Blood 192 mg/dL (70-110)
[2022-12-11 06:22] LABS: Glucose,Whole Blood 140 mg/dL (70-110)
[2022-12-11] MEDS: INSULIN ASPART (NovoLOG) 100 UNIT/ML VIAL SQ SCH (06:26)
[2022-12-11] MEDS: PANTOPRAZOLE 40 MG TABLET PO SCH (06:28)
--- NOTE | 2022-12-11 06:29 | P.CNPUL ---
History of Present Illness Consult date: 12/11/22 Requesting physician: [facility] Reason for consult: COPD Chief complaint: Chest pain History of present illness: I am seeing this patient in new consultation today 12/11/2022 for COPD. This is a 55-year-old white male who normally follows with Dr. Garcia in the office. Patient is known to have moderate COPD with an FEV1 66% of predicted currently maintained on albuterol inhalers and Trelegy, obstructive sleep apnea on a APAP with minimum pressures of 10 and a maximum pressure support 20, chronic atrial fibrillation, previous mitral mechanical valve replacement for regurgitation in 2018, coronary artery disease with previous stenting of RCA and a subsequent 2 vessel bypass surgery with a BINTA to the RCA and saphenous vein graft to the OM1, hypertension, small abdominal aortic aneurysms measuring 3.3 cm at the mid abdominal aorta and 3.5 cm at the lower abdominal aorta which were last evaluated less than 6 months ago, obesity. The patient presented on 12/09/2022 for the chief concern of a nonradiating stabbing chest pain localized more on the right side. 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 Patient treated this chest pain with up to 5 sublingual nitro tabs without relief. Patient said that during this episode, he was short of breath and d iaphoretic. Denies any heart palpitations, lightheadedness, syncope, orthopnea, lower extremity swelling. He also denies any fevers, chills, hemoptysis. He does have an intermittently productive cough with clear sputum. He is currently sitting up in the bed, on room air, in no acute distress. No obvious acute ischemic changes seen on ECG. Chest x-ray on arrival showed some cardiomegaly with mild pulmonary vascular congestion. NT proBNP was not significantly elevated. Currently receiving Lasix 40 mg by mouth twice a day. Troponins negative 3. CBC on arrival showed a WBC count of 9.2, hemoglobin 14.3, a hematocrit 42, platelets 231,000. Pro-calcitonin level was low at 0.06. Patient is empirically receiving doxycycline, and this could probably safely be stopped. Patient's BMP shows sodium 132, potassium 5.1, chloride 98, serum CO2 20, BUN 12, creatinine 0.82, glucose 98. D-dimer was low at 0.29. Vital signs are stable. Review of Systems REVIEW OF SYSTEMS: CONSTITUTIONAL: Denies any recent significant weight loss or weight gain. EYES: Denies change in vision. EARS, NOSE, MOUTH, THROAT: Denies headaches, denies sore throat. CARDIOVASCULAR: See HPI RESPIRATORY: See HPI GASTROINTESTINAL: Denies change in appetite, abdominal pain, nausea and vomiting, or diarrhea GENITOURINARY: Denies hematuria, denies infections. MUSKULOSKELETAL: Denies pain, denies swelling. INTEGUMENTARY: Denies rash, denies eczema. NEUROLOGICAL: Denies recent memory loss, no recent seizure activity. PSYCHIATRIC: Denies anxiety, denies depression. HEMATOLOGIC/LYMPHATIC: Denies anemia, denies enlarged lymph node Past Medical History Past Medical History: Atrial Fibrillation, Coronary Artery Disease (CAD), Chest Pain / Angina, Heart Failure, GERD/Reflux, Hyperlipidemia, Hypertension, Pneumonia, Sleep Apnea/CPAP/BIPAP Additional Past Medical History / Comment(s): DIVERTICULITIS. ALEISHA with Cpap use History of Any Multi-Drug Resistant Organisms: None Reported Past Surgical History: Appendectomy, Coronary Bypass/CABG, Heart Catheterization With Stent Additional Past Surgical History / Comment(s): 2018 PCI with stent, 2018 CABG 2 vessel with mitral valve replacement, cardioversion x 3, DYLAN x2, EGD, colonoscopy, stress test done Past Anesthesia/Blood Transfusion Reactions: No Reported Reaction Date of Last Stent Placement:: 01/22/18 Past Psychological History: No Psychological Hx Reported Smoking Status: Former smoker Past Alcohol Use History: None Reported, Occasional Past Drug Use History: None Reported - Past Family History Father Family Medical History: Congestive Heart Failure (CHF) Additional Family Medical History / Comment(s): Father of CHF at the age of 68yrs. Mother Family Medical History: No Reported History Additional Family Medical History / Comment(s): Mother at the age of 62 or 63 yrs from myasthenia gravis. Brother(s) Family Medical History: Coronary Artery Disease (CAD) Additional Family Medical History / Comment(s): ONE BROTHER HAD CABG Sister(s) Family Medical History: Coronary Artery Disease (CAD) Additional Family Medical History / Comment(s): ONE SISTER HAS HEART STENTS. ONE SISTER HAS HAD CABG Medications and Allergies Home Medications Medication Instructions Recorded Confirmed Type Multivitamin [Men's Multi-Vitamin] 1 tab PO DAILY 01/22/14 12/09/22 History Magnesium Oxide [Mag-Ox] 500 mg PO DAILY 05/20/19 12/09/22 History Sertraline [Zoloft] 50 mg PO DAILY 05/20/19 12/09/22 History Pantoprazole [Protonix] 40 mg PO DAILY 11/08/20 12/09/22 History Albuterol Sulfate [Proair Hfa] 2 puff INHALATION RT-QID PRN 06/20/21 12/09/22 History Potassium Chloride ER [K-Dur 10] 10 meq PO DAILY 11/23/21 12/09/22 History Albuterol Nebulized [Ventolin 2.5 mg INHALATION RT-QID PRN 07/30/22 12/09/22 History Nebulized] Aspirin EC [Ecotrin Low Dose] 81 mg PO DAILY 07/30/22 12/09/22 History Atorvastatin [Lipitor] 40 mg PO HS 07/30/22 12/09/22 History Furosemide [Lasix] 40 mg PO DAILY@1700 07/30/22 12/09/22 History Furosemide [Lasix] 60 mg PO DAILY 07/30/22 12/09/22 History Losartan [Cozaar] 75 mg PO HS@2100 07/30/22 12/09/22 History Metoprolol Tartrate [Lopressor] 25 mg PO BID@0900,2100 07/30/22 12/09/22 History Spironolactone [Aldactone] 25 mg PO DAILY 07/30/22 12/09/22 History Warfarin [Coumadin] 7.5 mg PO SUTUTHSA@1700 07/30/22 12/09/22 History Warfarin [Coumadin] 10 mg PO MOWEFR@1700 07/30/22 12/09/22 History Empagliflozin [Jardiance] 25 mg PO DAILY 12/09/22 12/09/22 History Fluticasone/Umeclidin/Vilanter 1 puff INHALATION RT-DAILY 12/09/22 12/09/22 History [Yonilejacoby Ellipta 100-62.5-25] Insulin Glargine,Hum.rec.anlog 20 units SQ DIRECTED 12/09/22 12/09/22 History [Lantus Solostar Pen] Isosorbide Mononitrate ER [Imdur] 30 mg PO DAILY 12/09/22 12/09/22 History Ranolazine [Ranexa] 500 mg PO BID@0900,2100 12/09/22 12/09/22 History metFORMIN HCL [Glucophage] 500 mg PO BID@0900,1700 12/09/22 12/09/22 History Allergies Allergy/AdvReac Type Severity Reaction Status Date / Time Penicillins Allergy Unknown Verified 12/09/22 22:09 Childhood Physical Exam Vitals: Vital Signs Temp Pulse Pulse Resp BP Pulse Ox 12/11/22 03:01 97.7 F 64 16 114/65 98 12/11/22 02: 92 18 12/10/22 21:19 92 18 12/10/22 21:05 97.5 F L 92 18 128/69 94 L 12/10/22 21:01 84 16 12/10/22 20:50 86 16 12/10/22 15:56 72 12/10/22 15:49 72 12/10/22 14:20 97.9 F 72 16 144/74 95 12/10/22 12:09 76 12/10/22 11:57 80 12/10/22 08:44 97 12/10/22 08:28 97.7 F 83 20 163/89 95 Intake and Output 12/10/22 12/10/22 12/11/22 14:59 22:59 06:59 Intake Total 222 Balance 222 Intake: Oral 222 Other: # Voids 6 1 GENERAL EXAM: Alert, 57-year-old obese white male, comfortable in no apparent distress. HEAD: Normocephalic and atraumatic EYES: Normal reaction of pupils, equal size. NOSE: Clear with pink turbinates. THROAT: No erythema or exudates. NECK: No masses, no JVD. CHEST: No chest wall deformity. LUNGS: Equal air entry with no crackles, wheeze, rhonchi or dullness. On room air. No conversational dyspnea or accessory muscle use.. CVS: S1 and S2 normal with no audible murmur, regular rhythm. No extra heart sounds ABDOMEN: No hepatosplenomegaly, active bowel sounds, no guarding or rigidity. SPINE: No scoliosis or deformity SKIN: No rashes CENTRAL NERVOUS SYSTEM: No focal deficits, tone is normal in all 4 extremities. EXTREMITIES: There is no peripheral edema, clubbing, or cyanosis. Peripheral pulses are intact. Results - Laboratory Findings CBC and BMP: 04/01/23 20:07 12/09/22 20:07 PT/INR, D-dimer PT 24.8 sec (9.0-12.0) H 12/10/22 07:35 INR 2.5 (<1.2) H 12/10/22 07:35 D-Dimer 0.29 mg/L FEU (<0.60) 12/09/22 20:07 Abnormal lab findings: Abnormal Labs 12/09/22 12/09/22 12/10/22 20:07 20:07 07:35 PT 25.6 H INR 2.6 H APTT 35.9 H Sodium 132 L Carbon Dioxide 20 L POC Glucose (mg/dL) Hemoglobin A1c 9.1 H Total Bilirubin 1.5 H 12/10/22 12/10/22 12/10/22 07:35 07:53 12:12 PT 24.8 H INR 2.5 H APTT Sodium Carbon Dioxide POC Glucose (mg/dL) 114 H 143 H Hemoglobin A1c Total Bilirubin 12/10/22 12/10/22 16:53 21:07 PT INR APTT Sodium Carbon Dioxide POC Glucose (mg/dL) 215 H 192 H Hemoglobin A1c Total Bilirubin - Diagnostic Findings Chest x-ray: image reviewed Assessment and Plan Assessment: Atypical chest pain, currently under investigation Stable moderate COPD. FEV1 of 66% of predicted. Maintained on albuterol inhaler and Trelegy inhaler at home Obstructive sleep apnea maintained on APAP with minimal pressure of 10 and maximum pressure of 20 Coronary artery disease status post coronary artery bypass graft with a BINTA to RCA and SVG to the circumflex. Most recent heart catheterization done on 11/10/2020 shows a totally occluded SVG to the circumflex, a patent right internal mammary graft to the RCA, LAD without significant disease, and a distally occluded circumflex. At that time, medical management was recommended History of severe mitral valve regurgitation status post mechanical mitral valve replacement in 2018. Anticoagulated on Coumadin History of paroxysmal atrial fibrillation Hypertension Hyperlipidemia GERD Ex-smoker Plan: Patient's medications, labs, chest x-ray were reviewed I'm unsure of the etiology of the patient's atypical chest pain. Patient's COPD seems stable and not active On room air Patient encouraged to have his home Trelegy inhaler brought in procalcitonin level was low at 0.06, and patient's empiric doxycycline could be discontinued Using home CPAP at night Anticoagulated on Coumadin with therapeutic INR Vital signs are stable We will continue to follow I have personally seen and examined the patient, performed the documentation and the assessment and plan as written. Number of minutes spent on the visit:20 Time with Patient: Greater than 30
[2022-12-11] MEDS ORDERED: INSULIN DETEMIR (LEVEMIR) 100 UNIT/ML SYR SQ SCH ×2 (07:00)
[2022-12-11] MEDS: SYMBICORT 160-4.5 MCG INHALER INHALATION SCH (08:10)
[2022-12-11] MEDS ORDERED: CAFFEINE CITRATE 60 MG/3 ML VIAL IV PRN (08:55)
[2022-12-11] MEDS ORDERED: REGADENOSON 0.4 MG/5 ML SYRINGE IV PRN (08:55)
[2022-12-11] MEDS ORDERED: AMINOPHYLLINE 500 MG/20 ML VIAL IV PRN (08:55)
[2022-12-11 09:07] VITALS: BP 132/71; PULSE 69; RESP 18; TEMP 98
[2022-12-11 12:14] LABS: INR 1.44 (0.90-1.11)
[2022-12-11 12:23] LABS: Glucose,Whole Blood 116 mg/dL (70-110)
--- NOTE | 2022-12-11 12:36 | CA ---
Lexiscan Nuclear Stress Test Report Name: Tristen Hare Exam Date: 12/11/2022 10:57 Exam Location: [facility] Ht (in): 72 Wt (lb): 274 BSA: 2.44 Ordering Phys: Tanvi Shaa Referring Phys: ,, Technologist: Ga Baumann Age: 57 Gender: M : 1965 Procedure CPT: Indications: Reflex order-Stress test ICD-10 Codes: Patient History: Medications: SEE CHART Meds past 24 hrs: Pretest Chest Pain: STRESS TEST Lexiscan Protocol Exercise Duration (min:sec): 02:[address] Depressions (mm): Angina Score: Salazar Score: Resting HR (bpm): 67 Peak HR (bpm): 84 Resting BP (mmHg): 129 / 71 Peak BP (mmHg): 121 / 65 MPHR: 161 Target HR: 137 % MPHR: 52 METS: 1.0 Total Dose: Peak Dose: Atropine: Double Product: 28709 BP Response: Stress Termination: PROTOCOL COMPLETE Stress Symptoms: Stress Summary: ECG ANALYSIS Resting ECG: Stress ECG: CONCLUSIONS Baseline EKG revealed a normal sinus rhythm without significant ST-T changes. With Lexiscan administration as per protocol, the heart rate went up from 66-82 bpm and the blood pressure changed from 129/71-111/62 and came back to baseline slowly. EKG remained unremarkable. By EKG criteria this is a unremarkable Lexiscan stress test. The nuclear scan results which are more pertinent will be reported by the radiologist Dr. Lily Valles MD (Electronically Signed) Final Date: 11 December 2022 12:35
--- NOTE | 2022-12-11 12:53 | NM ---
EXAMINATION TYPE: NM stress lexiscan cardiolite DATE OF EXAM: 12/11/2022 COMPARISON: NONE HISTORY: 57-year-old male with chest pain TECHNIQUE: After the intravenous administration of 10.8 mCi Tc 99m Sestamibi - Cardiolite resting SP ECT images acquired 45 minutes post injection. The patient received 0.4mg Lexiscan, 25.9 mCi Tc 99m Sestamibi - Stress images obtained [address] injection FINDINGS: Review of stress and rest SPECT images demonstrates areas of fixed defect apical septal wall and mid inferolateral wall. Perfusion is decreased along the mid to basal inferior wall on stress images but without any correlating abnormality on the polar maps. Gated analysis shows normal wall motion with a n estimated left ventricular ejection fraction of 66 %. TID is upper limits of normal, calculated at 1.11. IMPRESSION: 1. A couple fixed defects, one along the apical septal wall and a second along the mid inferolateral wall could represent areas of old infarct or attenuation artifact. 2. The appearance of reversibility along the mid to basal inferior wall not corroborated on the polar maps. Suspect prominent diaphragmatic attenuation artifact rather than inducible ischemia. Further e valuation as clinically indicated.
--- NOTE | 2022-12-11 13:03 | P.PN ---
Subjective Progress Note Date: 12/11/22 HISTORY OF PRESENT ILLNESS: This is a 57-year-old male patient of Dr. Valles with a past medical history significant for coronary artery disease with previous CABG and mitral valve replacement with mechanical valve, hypertension, hyperlipidemia, chronic diastolic heart failure, diabetes mellitus type 2. We have been asked to see the patient in consultation for chest pain and CHF. Yesterday, patient developed heaviness in his chest in the mid section and also a right-sided chest pain that was sharp in nature. He took 5 nitroglycerin with some relief but was not completely gone. He also had sweats with the chest pain. He denies any lightheadedness or dizziness, no fever or chills, no cough, no nausea or vomiting. Patient does complain of a tingling that went throughout his body which he apparently has chronically. Initial blood pressure 166/78. Patient was last seen in the office on . At that time he was recently diagnosed with diabetes and initial hemoglobin A1c was 13.3. Patient was advised to return in 3-4 weeks and consider cardiac catheterization or stress testing to assess perfusion in the LAD distribution. No medication changes were made at that time. * EKG reveals sinus rhythm without acute ST changes. * Chest xray cardiomegaly and mild pulmonary vascular congestion. Correlate BNP for heart failure * Laboratory data: WBC 9.2, hemoglobin 14.3, platelet count 231. INR 2.6. D- dimer 0.29. Sodium 132, potassium 5.1, BUN 12 and creatinine 0.82. Troponin negative 3. Total bilirubin 1.5 otherwise liver function tests are normal. Magnesium 2.0. Pro-calcitonin 0.06. Hemoglobin A1c 9.1 * Current home cardiac medications include aspirin 81 mg daily, atorvastatin 40 mg at bedtime, Jardiance 25 mg daily, Lasix 60 mg in the morning and 40 in the afternoon, Imdur 30 mg daily, losartan 75 mg at bedtime, magnesium oxide 500 mg daily, Lopressor 25 mg twice daily, Ranexa 500 mg twice daily, Aldactone 25 mg daily, Coumadin 10 mg on Sunday and 7.5 mg on the other days. * Echocardiogram 10/27/2022 revealed EF of 55%, mitral valve not well visualized and appears mechanical with gradient of about 6 mm mean, mild mitral regurgitation, no significant pulmonary hypertension * Cardiac catheterization 10/30/2022 revealed dominant RCA calcified chronically occluded left main 50% lesion. LAD heavily calcified with mild to moderate diffuse disease, circumflex occluded, SVG to circumflex and BINTA to RCA are both patent. LVEDP normal. 12/11 Patient is seen today in follow-up. He denies having any chest pain at this time. His main concern is shortness of breath. Patient was scheduled for dobutamine stress test which changed to Lexiscan. Lexiscan states a couple fixed defects, one along the apical septal wall and a second along the mid infe rior lateral wall could represent areas of old infarct or attenuation artifact. The appearance of reversibility along the mid to basal inferior wall not corroborated on the polar maps. Suspect prominent diaphragmatic attenuation artifact rather than inducible ischemia. PHYSICAL EXAM: VITAL SIGNS: Reviewed. GENERAL: Well-developed in no acute distress. HEENT: Head is normocephalic. Pupils are equal, round. Sclerae anicteric. Mucous membranes of the mouth are moist. Neck supple. No JVD or thyromegaly LUNGS: Respirations even and unlabored. Lungs diminished to auscultation bilaterally. HEART: Regular rate and rhythm. S1 and S2 heard. ABDOMEN: Soft. Nondistended. Nontender. EXTREMITIES: Normal range of motion. No clubbing or cyanosis. Peripheral pulses intact. No lower extremity edema NEUROLOGIC: Awake and alert. Oriented x 3. ASSESSMENT: Chest pain Coronary artery disease with previous CABG and mitral valve replacement with mechanical valve Hypertension Hyperlipidemia Chronic diastolic heart failure with preserved ejection fraction with possible mild exacerbation PLAN: An acute coronary event has been ruled out Continue home cardiac medications Patient is cleared from cardiology for discharge home and follow-up in the office with his scheduled appointment. Nurse practitioner note has been reviewed by physician. Signing provider agrees with the documented findings, assessment, and plan of care. Objective - Vital Signs Vital signs: Vital Signs Temp 98.0 F 12/11/22 07:00 Pulse 69 12/11/22 08:00 Resp 18 12/11/22 08:00 BP 132/71 12/11/22 07:00 Pulse Ox 94 L 12/11/22 08:10 FiO2 Intake & Output 12/10/22 12/11/22 12/11/22 18:59 06:59 18:59 Intake Total 222 Balance 222 Intake: Oral 222 Other: # Voids 6 1 - Labs CBC & Chem 7: 04/01/23 20:07 12/09/22 20:07 Labs: Abnormal Lab Results - Last 24 Hours (Table) 12/10/22 12/10/22 12/11/22 Range/Units 16:53 21:07 06:14 PT 16.0 H (9.9-11.9) sec INR 1.44 H (0.90-1.11) POC Glucose (mg/dL) 215 H 192 H (70-110) mg/dL 12/11/22 12/11/22 Range/Units 06:21 12:21 PT (9.9-11.9) sec INR (0.90-1.11) POC Glucose (mg/dL) 140 H 116 H (70-110) mg/dL
[2022-12-11] MEDS: SPIRONOLACTONE 25 MG TAB PO SCH (13:30)
[2022-12-11] MEDS: THIAMINE 100 MG TAB PO SCH (13:30)
[2022-12-11] MEDS: ASPIRIN 81 MG PO SCH (13:30)
[2022-12-11] MEDS: FUROSEMIDE 40 MG TAB PO SCH (13:31)
[2022-12-11] MEDS: DAPAGLIFLOZIN PROPANEDIOL 10 MG TABLET PO SCH (13:31)
[2022-12-11] MEDS: METOPROLOL TARTRATE 25 MG TAB PO SCH (13:31)
[2022-12-11] MEDS: RANOLAZINE 500 MG TAB.ER.12H PO SCH (13:31)
[2022-12-11] MEDS: MAGNESIUM OXIDE 400 MG TAB PO SCH (13:31)
[2022-12-11] MEDS: SERTRALINE 50 MG TAB PO SCH (13:31)
[2022-12-11] MEDS: ISOSORBIDE MONONITRATE ER 30 MG TAB.ER.24H PO SCH (13:31)
[2022-12-11] MEDS: metFORMIN 500 MG TAB PO SCH (13:31)
[2022-12-11] MEDS: POTASSIUM CHLORIDE ER 10 MEQ TAB.ER.PRT PO SCH (13:32)
[2022-12-11 14:14] VITALS: BMI 37.1
[2022-12-11] MEDS ORDERED: WARFARIN 10 MG TAB PO SCH (17:00)
--- NOTE | 2022-12-12 06:55 | P.DS ---
Providers Date of admission: 12/09/22 23:28 Expected date of discharge: 12/11/22 Attending physician: Jose R Shaw Consults: 12/09/22 21:46 Consult Physician Routine Consulting Provider: Michael Jean-Baptiste Consult Reason/Comments: chest pain, CHF exacerbation Do you want consulting provider notified?: Yes, Notify in am 12/10/22 07:37 Consult Physician Routine Consulting Provider: Lien Garcia Consult Reason/Comments: copd Do you want consulting provider notified?: Yes Primary care physician: Chandler Valderrama Hospital Course: Final diagnosis Chest pain, ruled out coronary causes Acute on chronic congestive heart failure, diastolic dysfunction, preserved EF Acute COPD exacerbation Hypertension Diabetes mellitus Hyperlipidemia paroxysmal atrial fibrillation on Coumadin History of mitral valve replacement History of coronary artery disease status post CABG and stents 2 History of sleep apnea History of GERD Discharge disposition Patient is being discharged in a stable condition with guarded prognosis to home . Patient will follow-up with Dr. Valderrama in the outpatient setting upon discharge. Patient is to follow-up with cardiology outpatient as scheduled. Total time taken is greater than 35 minutes. Hospital course This is a 57-year-old male who was recently admitted as pain and evaluated by cardiology underwent stress testing which was negative and patient has been cleared by consultations. Patient to continue current medications as mentioned below close outpatient follow-up with cardiology in the outpatient setting. Patient reports to feeling well like to go home. Encourage the patient to follow-up with primary care provider this week. Currently no reports of chest pain, shortness of breath, or palpitations. Patient is afebrile. No reports of nausea or vomiting and patient is tolerating diet. Patient will be discharged home today. Guarded prognosis Physical exam: Gen: This is a 57-year-old male who is awake, alert and oriented 3, well- developed, well-nourished, obese HEENT: Head is atraumatic, normocephalic. Pupils equal, round. Sclerae is anicteric. NECK: Supple. No JVD. No lymphadenopathy. No thyromegaly. LUNGS: Diminished breath sounds bilaterally with no wheezes or rhonchi. No intercostal retractions. HEART: S1, S2 are muffled ABDOMEN: Soft. Bowel sounds are present. No masses. No tenderness. EXTREMITIES: No pedal edema. No calf tenderness. NEUROLOGICAL: Patient is awake, alert and oriented x3. Cranial nerves 2 through 12 are grossly intact. Please refer to medication reconciliation sheet for a list of medications. The impression and plan of care has been dictated by Marcela Goss, Nurse Practitioner as directed. Dr. Colin MD I have performed a history and examination and MDM of this patient, discussed the same with the dictator, and agree with the dictator's assessment and plan as written ,documented as a scribe. Based on total visit time, I have performed more than 50% of the visit. Patient Condition at Discharge: Fair Plan - Discharge Summary Discharge Rx Participant: Yes New Discharge Prescriptions: New Furosemide [Lasix] 40 mg PO BID@0900,1600 #60 tab Budesonide-Formot 160-4.5 Mcg [Symbicort 160-4.5 Mcg Inhaler] 2 puff INHALATION RT-BID 30 Days #1 each Thiamine [Vitamin B-1] 100 mg PO DAILY #30 tab Acetaminophen Tab [Tylenol] 650 mg PO Q6HR PRN tab PRN Reason: Mild Pain Or Fever > 100.5 Continue Multivitamin [Men's Multi-Vitamin] 1 tab PO DAILY Sertraline [Zoloft] 50 mg PO DAILY Magnesium Oxide [Mag-Ox] 500 mg PO DAILY Pantoprazole [Protonix] 40 mg PO DAILY Albuterol Nebulized [Ventolin Nebulized] 2.5 mg INHALATION RT-QID PRN PRN Reason: Shortness Of Breath Losartan [Cozaar] 75 mg PO HS@2100 Aspirin EC [Ecotrin Low Dose] 81 mg PO DAILY Warfarin [Coumadin] 10 mg PO MOWEFR@1700 Insulin Glargine,Hum.rec.anlog [Lantus Solostar Pen] 20 units SQ DAILY Isosorbide Mononitrate ER [Imdur] 30 mg PO DAILY Albuterol Sulfate [Proair Hfa] 2 puff INHALATION RT-QID PRN PRN Reason: Shortness Of Breath Potassium Chloride ER [K-Dur 10] 10 meq PO DAILY Warfarin [Coumadin] 7.5 mg PO SUTUTHSA@1700 Spironolactone [Aldactone] 25 mg PO DAILY Atorvastatin [Lipitor] 40 mg PO HS Metoprolol Tartrate [Lopressor] 25 mg PO BID@0900,2100 Empagliflozin [Jardiance] 25 mg PO DAILY Fluticasone/Umeclidin/Vilanter [Trelegy Ellipta 100-62.5-25] 1 puff INHALATION RT-DAILY metFORMIN HCL [Glucophage] 500 mg PO BID@0900,1700 Ranolazine [Ranexa] 500 mg PO BID@0900,2099 Discontinued Furosemide [Lasix] 60 mg PO DAILY Furosemide [Lasix] 40 mg PO DAILY@1700 Discharge Medication List Multivitamin [Men's Multi-Vitamin] 1 tab PO DAILY 01/22/14 [History] Magnesium Oxide [Mag-Ox] 500 mg PO DAILY 05/20/19 [History] Sertraline [Zoloft] 50 mg PO DAILY 05/20/19 [History] Pantoprazole [Protonix] 40 mg PO DAILY 11/08/20 [History] Albuterol Sulfate [Proair Hfa] 2 puff INHALATION RT-QID PRN 06/20/21 [History] Potassium Chloride ER [K-Dur 10] 10 meq PO DAILY 11/23/21 [History] Albuterol Nebulized [Ventolin Nebulized] 2.5 mg INHALATION RT-QID PRN 07/30/22 [History] Aspirin EC [Ecotrin Low Dose] 81 mg PO DAILY 07/30/22 [History] Atorvastatin [Lipitor] 40 mg PO HS 07/30/22 [History] Losartan [Cozaar] 75 mg PO HS@209907/30/22 [History] Metoprolol Tartrate [Lopressor] 25 mg PO BID@899,209907/30/22 [History] Spironolactone [Aldactone] 25 mg PO DAILY 07/30/22 [History] Warfarin [Coumadin] 7.5 mg PO SUTUTHSA@169907/30/22 [History] Warfarin [Coumadin] 10 mg PO MOWEFR@169907/30/22 [History] Empagliflozin [Jardiance] 25 mg PO DAILY 12/09/22 [History] Fluticasone/Umeclidin/Vilanter [Trelegy Ellipta 100-62.5-25] 1 puff INHALATION RT-DAILY 12/09/22 [History] Insulin Glargine,Hum.rec.anlog [Lantus Solostar Pen] 20 units SQ DAILY 12/09/22 [History] Isosorbide Mononitrate ER [Imdur] 30 mg PO DAILY 12/09/22 [History] Ranolazine [Ranexa] 500 mg PO BID@0900,2100 12/09/22 [History] metFORMIN HCL [Glucophage] 500 mg PO BID@0900,1700 12/09/22 [History] Acetaminophen Tab [Tylenol] 650 mg PO Q6HR PRN tab 12/11/22 [Rx] Budesonide-Formot 160-4.5 Mcg [Symbicort 160-4.5 Mcg Inhaler] 2 puff INHALATION RT-BID 30 Days #1 each 12/11/22 [Rx] Furosemide [Lasix] 40 mg PO BID@0900,1600 #60 tab 12/11/22 [Rx] Thiamine [Vitamin B-1] 100 mg PO DAILY #30 tab 12/11/22 [Rx] Follow up Appointment(s)/Referral(s): Michael Jean-Baptiste MD [STAFF PHYSICIAN] - 12/20/22 2:45 pm Chandler Valderrama MD [Primary Care Provider] - 1-2 days Patient Instructions/Handouts: Regadenoson (By injection), Chest Pain (GEN) Activity/Diet/Wound Care/Special Instructions: Activity Limited until follow-up Follow-up with primary care provider and discharged Follow-up cardiology outpatient Continue taking medications as prescribed Discharge Disposition: HOME SELF-CARE
== END 2022-12-11 14:06 | disposition home or self-care (01) ==
LOC: EC 19:51 → 6NMEDSUR 23:28
PROVIDERS: ADMIT Hospitalist; ATTEND Hospitalist
DX: R07.89 Other chest pain (principal); J44.1 Chronic obstructive pulmonary disease with (acute) exacerbation; I48.0 Paroxysmal atrial fibrillation; I25.10 Atherosclerotic heart disease of native coronary artery without angina pectoris; I11.0 Hypertensive heart disease with heart failure; I50.33 Acute on chronic diastolic (congestive) heart failure; K21.9 Gastro-esophageal reflux disease without esophagitis; E78.5 Hyperlipidemia, unspecified; G47.33 Obstructive sleep apnea (adult) (pediatric); I34.0 Nonrheumatic mitral (valve) insufficiency; E11.9 Type 2 diabetes mellitus without complications; E66.9 Obesity, unspecified; Z95.3 Presence of xenogenic heart valve; Z95.5 Presence of coronary angioplasty implant and graft; Z87.891 Personal history of nicotine dependence; Z79.899 Other long term (current) drug therapy; Z79.82 Long term (current) use of aspirin; Z79.01 Long term (current) use of anticoagulants; Z79.84 Long term (current) use of oral hypoglycemic drugs; Z79.4 Long term (current) use of insulin; Z79.51 Long term (current) use of inhaled steroids; Z88.0 Allergy status to penicillin; Z82.49 Family history of ischemic heart disease and other diseases of the circulatory system
CPT/HCPCS: 96372 ×2; 96375 ×3; 96376; 96374; 99285; 36415; 94640 ×2; 94760 ×2; 93005 ×2; 93017; 85379; 83880; 80053; 83735; 84484 ×2; 85025; 85610 ×3; 85730; 83036; 84145; 71046; 78452; G0378 ×3; A9500; J2270 ×2; J1940 ×2; J2920; J2785; J1170

== ENCOUNTER 2023-01-11 20:58 | Emergency (ER) | payer OTHER ==
[2023-01-11 21:19] VITALS: TEMP 98
--- NOTE | 2023-01-11 21:52 | ED ---
General Adult HPI - General Chief complaint: Shortness of Breath Stated complaint: swollen legand repiratory issues Time Seen by Provider: 01/11/23 21:40 Source: patient Mode of arrival: wheelchair Limitations: no limitations - History of Present Illness Initial comments: Dictation was produced using [employer] dictation software. please excuse any gra mmatical, word or spelling errors. Chief Complaint: 57-year-old male presents with right lower extremity pain and shortness of breath History of Present Illness: 57-year-old male he has mechanical valve. He is on Coumadin because of it. Patient states for the last 3 days he was having worsening right lower extremity pain. States that most of his pain is along the anterior part of his tibia. States that he does have A posterior popliteal pain. Notices that his leg is swollen. Today states that he became short of breath. Patient has any history of blood clot. He is stating that he is compliant with all his medications. Patient has a mild cough but seems to be usual for his normal cough. Denies any fever or constitutional symptoms. The ROS documented in this emergency department record has been reviewed and confirmed by me. Those systems with pertinent positive or negative responses have been documented in the HPI. All other systems are other negative and/or n oncontributory. - Related Data Home Medications Medication Instructions Recorded Confirmed Multivitamin [Men's Multi-Vitamin] 1 tab PO DAILY 01/22/14 12/09/22 Magnesium Oxide [Mag-Ox] 500 mg PO DAILY 05/20/19 12/09/22 Sertraline [Zoloft] 50 mg PO DAILY 05/20/19 12/09/22 Pantoprazole [Protonix] 40 mg PO DAILY 11/08/20 12/09/22 Albuterol Sulfate [Proair Hfa] 2 puff INHALATION RT-QID PRN 06/20/21 12/09/22 Potassium Chloride ER [K-Dur 10] 10 meq PO DAILY 11/23/21 12/09/22 Albuterol Nebulized [Ventolin 2.5 mg INHALATION RT-QID PRN 07/30/22 12/09/22 Nebulized] Aspirin EC [Ecotrin Low Dose] 81 mg PO DAILY 07/30/22 12/09/22 Atorvastatin [Lipitor] 40 mg PO HS 07/30/22 12/09/22 Losartan [Cozaar] 75 mg PO HS@209907/30/22 12/09/22 Metoprolol Tartrate [Lopressor] 25 mg PO BID@0900,209907/30/22 12/09/22 Spironolactone [Aldactone] 25 mg PO DAILY 07/30/22 12/09/22 Warfarin [Coumadin] 7.5 mg PO SUTUTHSA@1700 07/30/22 12/09/22 Warfarin [Coumadin] 10 mg PO MOWEFR@1700 07/30/22 12/09/22 Empagliflozin [Jardiance] 25 mg PO DAILY 12/09/22 12/09/22 Fluticasone/Umeclidin/Vilanter 1 puff INHALATION RT-DAILY 12/09/22 12/09/22 [Trelejacoby Ellipta 100-62.5-25] Insulin Glargine,Hum.rec.anlog 20 units SQ DAILY 12/09/22 12/11/22 [Lantus Solostar Pen] Isosorbide Mononitrate ER [Imdur] 30 mg PO DAILY 12/09/22 12/09/22 Ranolazine [Ranexa] 500 mg PO BID@0900,209912/09/22 12/09/22 metFORMIN HCL [Glucophage] 500 mg PO BID@0900,1700 12/09/22 12/09/22 Previous Rx's Medication Instructions Recorded Acetaminophen Tab [Tylenol] 650 mg PO Q6HR PRN tab 12/11/22 Budesonide-Formot 160-4.5 Mcg 2 puff INHALATION RT-BID 30 Days 12/11/22 [Symbicort 160-4.5 Mcg Inhaler] #1 each Furosemide [Lasix] 40 mg PO BID@0900,1600 #60 tab 12/11/22 Thiamine [Vitamin B-1] 100 mg PO DAILY #30 tab 12/11/22 Allergies Allergy/AdvReac Type Severity Reaction Status Date / Time Penicillins Allergy Unknown Verified 12/09/22 22:09 Childhood Review of Systems ROS Statement: Those systems with pertinent positive or pertinent negative responses have been documented in the HPI. ROS Other: All systems not noted in ROS Statement are negative. Past Medical History Past Medical History: Atrial Fibrillation, Coronary Artery Disease (CAD), Chest Pain / Angina, Heart Failure, GERD/Reflux, Hyperlipidemia, Hypertension, Pneumonia, Sleep Apnea/CPAP/BIPAP Additional Past Medical History / Comment(s): DIVERTICULITIS. ALEISHA with Cpap use History of Any Multi-Drug Resistant Organisms: None Reported Past Surgical History: Appendectomy, Coronary Bypass/CABG, Heart Catheterization With Stent Additional Past Surgical History / Comment(s): 2018 PCI with stent, 2018 CABG 2 vessel with mitral valve replacement, cardioversion x 3, DYLAN x2, EGD, colonoscop y, stress test done Past Anesthesia/Blood Transfusion Reactions: No Reported Reaction Date of Last Stent Placement:: 01/22/18 Past Psychological History: No Psychological Hx Reported Smoking Status: Former smoker Past Alcohol Use History: None Reported, Occasional Past Drug Use History: None Reported - Past Family History Father Family Medical History: Congestive Heart Failure (CHF) Additional Family Medical History / Comment(s): Father of CHF at the age of 68yrs. Mother Family Medical History: No Reported History Additional Family Medical History / Comment(s): Mother at the age of 62 or 63 yrs from myasthenia gravis. Brother(s) Family Medical History: Coronary Artery Disease (CAD) Additional Family Medical History / Comment(s): ONE BROTHER HAD CABG Sister(s) Family Medical History: Coronary Artery Disease (CAD) Additional Family Medical History / Comment(s): ONE SISTER HAS HEART STENTS. ONE SISTER HAS HAD CABG General Exam - General Exam Comments Initial Comments: PHYSICAL EXAM: General Impression: Alert and oriented x3, not in acute distress, not dyspneic HEENT: Normocephalic atraumatic, extra-ocular movements intact, pupils equal and reactive to light bilaterally, mucous membranes moist. Cardiovascular: Heart regular rate and rhythm Chest: Able to complete full sentences, no retractions, no tachypnea, clear to auscultation bilaterally Abdomen: abdomen soft, non-tender, non-distended, no organomegaly Musculoskeletal: Pulses present and equal in all extremities, no peripheral elijah ma Right lower extremity: Palpatory tenderness to the calf with mild swelling, tender to the popliteal area and anterior tibia Motor: no focal deficits noted Neurological: CN II-XII grossly intact, no focal motor or sensory deficits noted Skin: Intact with no visualized rashes Psych: Normal affect and mood Limitations: no limitations Course Vital Signs 01/11/23 01/12/23 21:17 00:57 Temperature 98 F Pulse Rate 107 H 101 H Respiratory 18 15 Rate Blood Pressure 115/68 132/92 O2 Sat by Pulse 96 94 L Oximetry - Reevaluation(s) Reevaluation #1: 01/12/23 01:[address] Darby. It was discussed with on-call orthopedic surgery that differential regarding patient's symptoms slightly suspicious for compartment syndrome. His compartments are soft but he does have significant pain with manipulation of the right great toe. Dr. Darby states that patient should be transferred because we do not have the device to testing compartment p ressures. Medical Decision Making - Medical Decision Making Was pt. sent in by a medical professional or institution (, PA, ORDER TRACER, urgent ca re, hospital, or snf...) When possible be specific @ -No Did you speak to anyone other than the patient for history (EMS, parent, family, police, friend...)? What history was obtained from this source @ -No Did you review nursing and triage notes (agree or disagree)? Why? @ -I reviewed and agree with nursing and triage notes Were old charts reviewed (outside hosp., previous admission, EMS record, old EKG, old radiological studies, urgent care reports/EKG's, snf records)? Report findings @ -No old charts were reviewed Differential Diagnosis (chest pain, altered mental status, abdominal pain women, abdominal pain men, vaginal bleeding, musculoskeletal, weakness, fever, dyspnea, syncope, headache, dizziness, GI bleed, back pain, seizure, CVA, palpatations, mental health)? @ -MB of differential shortness of breath EKG interpreted by me (3pts min.). @ -My EKG interpretation: Ventricular rate 107, sinus tachycardia, right bundle branch block,. Interval to 20, QRS 120, QTC 391. No AL prolongation, no QTC prolongation, no ST or T-wave changes noted. Overall, this EKG is nonspecific X-rays interpreted by me (1pt min.). @ -Chest x-ray is unremarkable for acute processes CT interpreted by me (1pt min.). @ -No mainstem PE, no parenchymal abnormalities U/S interpreted by me (1pt. min.). @ -Large hypoechoic area in the right calf measuring 6 x 2 x 4 cm What testing was considered but not performed or refused? (CT, X-rays, U/S, labs)? Why? @ -None What meds were considered but not given or refused? Why? @ -None Did you discuss the management of the patient with other professionals (professionals i.e. , PA, ORDER TRACER, lab, RT, psych nurse, social worker delinquency prevention, bilingual teacher aide, teacher, executive vice president and chief operating officer, medical case worker)? Give summary @ -No Was smoking cessation discussed for >3mins.? @ -No Was critical care preformed (if so, how long)? @ -No Were there social determinants of health that impacted care today? How? (Homelessness, low income, unemployed, alcoholism, drug addiction, transportation, low edu. Level, literacy, decrease access to med. care, shelter, rehab)? @ -No Was there de-escalation of care discussed even if they declined (Discuss DNR or withdrawal of care, Hospice)? DNR status @ -No What co-morbidities impacted this encounter? (DM, HTN, Smoking, COPD, CAD, Cancer, CVA, ARF, Chemo, Hep., AIDS, mental health diagnosis, sleep apnea, morbid obesity)? @ -None Was patient admitted / discharged? Hospital course, mention meds given and route, prescriptions, significant lab abnormalities, going to OR and other pertinent info. @ -57 Year-old male presents to emergency room for May complaint of right lower extremity pain. He does also have shortness of breath. Patient is on Coumadin. Vital signs upon arrival shows mild tachycardia. Rest vital signs within acceptable limits. Laboratory evaluation obtained. CBC, metabolic panel is negative. Coag panel shows therapeutic INR of 2.1. Patient reexamined at the bedside. His physical exam is moderately suspicious for compartment syndrome in light of ultrasound findings. Doesn't however have any sensory issues to his right lower leg. He does have pain with manipulation of the great toe. Case is discussed with Dr. Darby who recommended transfer to [facility]. Spoke with your physician, Dr. Jean who is willing to accept the patient for ER transfer. Undiagnosed new problem with uncertain prognosis? @ -No Drug Therapy requiring intensive monitoring for toxicity (Heparin, Nitro, Insulin, Cardizem)? @ -No Were any procedures done? @ -No Diagnosis/symptom? Acute, or Chronic, or Acute on Chronic? Uncomplicated (without systemic symptoms) or Complicated (systemic symptoms)? @ -1. Calf hematoma, suspect compartment syndrome Side effects of treatment? @ -No Exacerbation, Progression, or Severe Exacerbation? @ -No Poses a threat to life or bodily function? How? (Chest pain, USA, PR, pneumonia, PE, COPD, DKA, ARF, appy, cholecystitis, CVA, Diverticulitis, Homicidal, Suicidal, threat to staff... and all critical care pts) @ -yes - Lab Data Result diagrams: 01/11/23 21:41 01/11/23 21:41 Lab Results 01/11/23 01/11/23 01/11/23 Range/Units 21:41 21:41 21:41 WBC 8.1 (3.8-10.6) k/uL RBC 5.05 (4.30-5.90) m/uL Hgb 15.4 (13.0-17.5) gm/dL Hct 46.8 (39.0-53.0) % MCV 92.7 (80.0-100.0) fL MCH 30.6 (25.0-35.0) pg MCHC 33.0 (31.0-37.0) g/dL RDW 13.7 (11.5-15.5) % Plt Count 230 (150-450) k/uL MPV 8.7 Neutrophils % 59 % Lymphocytes % 27 % Monocytes % 7 % Eosinophils % 2 % Basophils % 1 % Neutrophils # 4.8 (1.3-7.7) k/uL Lymphocytes # 2.2 (1.0-4.8) k/uL Monocytes # 0.6 (0-1.0) k/uL Eosinophils # 0.2 (0-0.7) k/uL Basophils # 0.1 (0-0.2) k/uL PT 20.4 H (9.0-12.0) sec INR 2.1 H (<1.2) APTT 33.1 H (22.0-30.0) sec Sodium 137 (137-145) mmol/L Potassium 3.3 L (3.5-5.1) mmol/L Chloride 97 L (98-107) mmol/L Carbon Dioxide 22 (22-30) mmol/L Anion Gap 18 mmol/L BUN 17 (9-20) mg/dL Creatinine 0.87 (0.66-1.25) mg/dL Est GFR (CKD-EPI)AfAm >90 (>60 ml/min/1.73 sqM) Est GFR (CKD-EPI)NonAf >90 (>60 ml/min/1.73 sqM) Glucose 169 H (74-99) mg/dL Calcium 9.3 (8.4-10.2) mg/dL Total Bilirubin 1.0 (0.2-1.3) mg/dL AST 29 (17-59) U/L ALT 32 (4-49) U/L Alkaline Phosphatase 103 (38-126) U/L Troponin I (0.000-0.034) ng/mL NT-Pro-B Natriuret Pep pg/mL Total Protein 7.7 (6.3-8.2) g/dL Albumin 4.9 (3.5-5.0) g/dL 01/11/23 01/11/23 Range/Units 21:41 21:41 WBC (3.8-10.6) k/uL RBC (4.30-5.90) m/uL Hgb (13.0-17.5) gm/dL Hct (39.0-53.0) % MCV (80.0-100.0) fL MCH (25.0-35.0) pg MCHC (31.0-37.0) g/dL RDW (11.5-15.5) % Plt Count (150-450) k/uL MPV Neutrophils % % Lymphocytes % % Monocytes % % Eosinophils % % Basophils % % Neutrophils # (1.3-7.7) k/uL Lymphocytes # (1.0-4.8) k/uL Monocytes # (0-1.0) k/uL Eosinophils # (0-0.7) k/uL Basophils # (0-0.2) k/uL PT (9.0-12.0) sec INR (<1.2) APTT (22.0-30.0) sec Sodium (137-145) mmol/L Potassium (3.5-5.1) mmol/L Chloride (98-107) mmol/L Carbon Dioxide (22-30) mmol/L Anion Gap mmol/L BUN (9-20) mg/dL Creatinine (0.66-1.25) mg/dL Est GFR (CKD-EPI)AfAm (>60 ml/min/1.73 sqM) Est GFR (CKD-EPI)NonAf (>60 ml/min/1.73 sqM) Glucose (74-99) mg/dL Calcium (8.4-10.2) mg/dL Total Bilirubin (0.2-1.3) mg/dL AST (17-59) U/L ALT (4-49) U/L Alkaline Phosphatase (38-126) U/L Troponin I 0.032 (0.000-0.034) ng/mL NT-Pro-B Natriuret Pep 78 pg/mL Total Protein (6.3-8.2) g/dL Albumin (3.5-5.0) g/dL Disposition Clinical Impression: Leg pain Disposition: OTHER INSTITUTION NOT DEFINED Condition: Serious Referrals: Chandler Valderrama MD [Primary Care Provider] - 1-2 days Time of Disposition: 01:18 - Out of Hospital Transfer - Req. Specs Out of Hospital Transfer - Requested Specifics: Other Emergency Center ([facility])
[2023-01-11 22:22] LABS: Basophils # (A) 0.1 k/uL (0-0.2); Basophils % (A) 1 %; Eosinophils # (A) 0.2 k/uL (0-0.7); Eosinophils % (A) 2 %; HCT 46.8 % (39.0-53.0); HGB 15.4 gm/dL (13.0-17.5); Lymphocytes # (A) 2.2 k/uL (1.0-4.8); Lymphocytes % (A) 27 %; MCH 30.6 pg (25.0-35.0); MCV 92.7 fL (80.0-100.0); Mean Platelet Volume 8.7; Monocytes # (A) 0.6 k/uL (0-1.0); Monocytes % (A) 7 %; Neutrophils # (A) 4.8 k/uL (1.3-7.7); Neutrophils % (A) 59 %; Platelet Count 230 k/uL (150-450); RBC 5.05 m/uL (4.30-5.90); RDW 13.7 % (11.5-15.5); WBC 8.1 k/uL (3.8-10.6)
[2023-01-11 22:31] LABS: ALT 32 U/L (4-49); AST 29 U/L (17-59); African American GFR (CKD) >90 (>60 ml/min/1.73 sqM); Albumin 4.9 g/dL (3.5-5.0); Alkaline Phosphatase 103 U/L (38-126); Anion Gap 18 mmol/L; Blood Urea Nitrogen 17 mg/dL (9-20); Calcium 9.3 mg/dL (8.4-10.2); Carbon Dioxide 22 mmol/L (22-30); Chloride 97 mmol/L (98-107); Glucose 169 mg/dL (74-99); Non-African American GFR(CKD) >90 (>60 ml/min/1.73 sqM); Potassium 3.3 mmol/L (3.5-5.1); Sodium 137 mmol/L (137-145); Total Protein 7.7 g/dL (6.3-8.2)
[2023-01-11 22:48] LABS: INR 2.1 (<1.2); Partial Thromboplastin Time 33.1 sec (22.0-30.0); Prothrombin Time 20.4 sec (9.0-12.0)
--- NOTE | 2023-01-11 23:50 | XR ---
EXAM: XR Chest, 2 Views CLINICAL HISTORY: ITS.REASON XR Reason: difficulty breathing TECHNIQUE: Frontal and lateral views of the chest. COMPARISON: 02/23/2022 FINDINGS: Lungs: Increasing peripheral linear opacities within bilateral lower lobes concerning for increasing fibrosis. Pleural space: Unremarkable. No pneumothorax. No pleural effusions. Heart: Unremarkable. No cardiomegaly. Mediastinum: Unremarkable. Bones/joints: No acute osseous abnormalities. Patient is status post sternotomy. Atrial clip is present. IMPRESSION: Increasing peripheral linear opacities within bilateral lower lobes concerning for increasing fibrosis.
--- NOTE | 2023-01-11 23:55 | CT ---
EXAM: CT Angiography Chest With Intravenous Contrast CLINICAL HISTORY: ITS.REASON CT Reason: suspect dvt + dyspnea TECHNIQUE: Axial computed tomographic angiography images of the chest with intravenous contrast. CTDI is 35 mGy and DLP is 899.9 mGy-cm. This CT exam was performed using one or more of the following dose reduction techniques: automated exposure control, adjustment of the mA and/or kV according to patient size, and/or use of iterative reconstruction technique. MIP reconstructed images were created and reviewed. COMPARISON: No relevant prior studies available. FINDINGS: Pulmonary arteries: Limited opacification of the pulmonary arteries. No large central pulmonary emboli. Aorta: No acute findings. No thoracic aortic aneurysm. Lungs: Bilateral dependent atelectasis, left greater than right. Peripheral scarring within bilateral lower lobes. No mass. Pleural space: Unremarkable. No significant effusion. No pneumothorax. Heart: Unremarkable. No cardiomegaly. No significant pericardial effusion. No evidence of RV dysfunction. Bones/joints: No acute fracture. No dislocation. Soft tissues: Unremarkable. Lymph nodes: Unremarkable. No enlarged lymph nodes. Liver: Fatty infiltration of the liver. IMPRESSION: 1. Limited opacification of the pulmonary arteries. No large central pulmonary emboli. 2. Peripheral scarring within bilateral lower lobes. 3. Fatty infiltration of the liver.
--- NOTE | 2023-01-12 00:32 | US ---
EXAM: US Duplex Right Lower Extremity Veins CLINICAL HISTORY: ITS.REASON US Reason: suspect dvt TECHNIQUE: Real-time duplex ultrasound scan of the right lower extremity veins integrating B-mode two-dimensional vascular structure, Doppler spectral analysis, color flow Doppler imaging and compression. COMPARISON: No relevant prior studies available. FINDINGS: Deep veins: Unremarkable. No DVT in the visualized common femoral, femoral, proximal deep femoral or popliteal veins. The veins demonstrate normal color flow, are normally compressible, with normal phasic flow and/or augmentation response. Soft tissues: Within the soft tissues of the right calf there is a 5.9 x 1.7 cm x 3.4 cm hypoechoic complex fluid collection likely representing a hematoma. No popliteal cyst. IMPRESSION: No evidence of right lower extremity deep venous thrombosis. 5.9 x 1.7 cm x 3.4 cm hypoechoic complex fluid collection in the right calf likely representing a hematoma.
[2023-01-12] MEDS ORDERED: MORPHINE SULFATE 4 MG/ML SYRINGE IV STA (00:42)
[2023-01-12 00:58] VITALS: BP 132/92; PULSE 101; RESP 15
== END 2023-01-12 02:09 | disposition other institution (70) ==
LOC: EC 20:58
DX: M79.604 Pain in right leg (principal); I25.10 Atherosclerotic heart disease of native coronary artery without angina pectoris; I10 Essential (primary) hypertension; E78.5 Hyperlipidemia, unspecified; K21.9 Gastro-esophageal reflux disease without esophagitis; I48.91 Unspecified atrial fibrillation; Z88.0 Allergy status to penicillin; Z95.5 Presence of coronary angioplasty implant and graft; Z79.01 Long term (current) use of anticoagulants; Z79.82 Long term (current) use of aspirin; Z79.899 Other long term (current) drug therapy; Z90.89 Acquired absence of other organs; Z87.891 Personal history of nicotine dependence
CPT/HCPCS: 36415; 93005; 83880; 80053; 84484; 85025; 85610; 85730; 71046; 93971; 71275; 99285; 96374; Q9967

== ENCOUNTER 2023-06-26 18:01 | Observation (INO) | payer OTHER ==
[2023-06-26 18:23] VITALS: TEMP 97.5
[2023-06-26 18:51] LABS: Basophils % (A) 1 %; Eosinophils # (A) 0.2 k/uL (0-0.7); Eosinophils % (A) 3 %; HCT 44.8 % (39.0-53.0); HGB 15.2 gm/dL (13.0-17.5); INR 1.9 (<1.2); Lymphocytes # (A) 1.4 k/uL (1.0-4.8); Lymphocytes % (A) 21 %; MCH 31.6 pg (25.0-35.0); MCHC 33.9 g/dL (31.0-37.0); MCV 93.1 fL (80.0-100.0); Mean Platelet Volume 8.2; Monocytes # (A) 0.5 k/uL (0-1.0); Monocytes % (A) 8 %; Neutrophils # (A) 4.1 k/uL (1.3-7.7); Neutrophils % (A) 63 %; Partial Thromboplastin Time 32.5 sec (22.0-30.0); Platelet Count 187 k/uL (150-450); Prothrombin Time 18.9 sec (10.0-12.5); RBC 4.81 m/uL (4.30-5.90); RDW 13.3 % (11.5-15.5); WBC 6.5 k/uL (3.8-10.6)
--- NOTE | 2023-06-26 18:58 | XR ---
EXAMINATION TYPE: XR chest 2V DATE OF EXAM: 06/26/2023 COMPARISON: 01/11/2023 INDICATION: Difficulty breathing TECHNIQUE: Frontal and lateral views of the chest are obtained. FINDINGS: The heart size is normal. The pulmonary vasculature is prominent. Mild diffuse increased lung markings are present. This is slightly greater at the lung bases. Correla te for subsegmental atelectasis. Volume overload be considered. IMPRESSION: 1. Prominent pulmonary vascular markings with slight increased infiltrate along the lung bases. Corre late for subsegmental atelectasis or volume overload
[2023-06-26 19:00] LABS: ALT 36 U/L (4-49); AST 35 U/L (17-59); African American GFR (CKD) >90 (>60 ml/min/1.73 sqM); Albumin 4.2 g/dL (3.5-5.0); Alkaline Phosphatase 90 U/L (38-126); Anion Gap 13 mmol/L; Blood Urea Nitrogen 16 mg/dL (9-20); Calcium 9.4 mg/dL (8.4-10.2); Carbon Dioxide 20 mmol/L (22-30); Chloride 102 mmol/L (98-107); Glucose 164 mg/dL (74-99); Non-African American GFR(CKD) >90 (>60 ml/min/1.73 sqM); Potassium 3.8 mmol/L (3.5-5.1); Sodium 135 mmol/L (137-145); Total Protein 7.1 g/dL (6.3-8.2)
[2023-06-26] MEDS ORDERED: methylPREDNISolone SOD SUCCI 125 MG/2 ML VIAL IV STA (20:47)
[2023-06-26] MEDS ORDERED: IPRATROPIUM-ALBUTEROL 3 ML NEB INHALATION STA ×2 (20:47→22:17)
[2023-06-26] MEDS ORDERED: MORPHINE SULFATE 4 MG/ML SYRINGE IVP STA (21:37)
--- NOTE | 2023-06-26 22:46 | ED ---
SOB HPI - General Chief Complaint: Shortness of Breath Stated Complaint: sob Time Seen by Provider: 06/26/23 20:29 Source: patient Mode of arrival: ambulatory Limitations: no limitations - History of Present Illness Initial Comments: 58-year-old male with history of COPD, CHF, A. fib, CAD, hypertension, hyperlipidemia presenting with chief complaint of shortness of breath. Symptoms have been ongoing for 2 days. He admits to sharp chest and back pain. Also admits to right jaw pain and tingling in the left arm. No fevers. He admits to cough, pain is worse with coughing. No nausea, vomiting, abdominal pain. No lower extremity swelling. - Related Data Home Medications Medication Instructions Recorded Confirmed Multivitamin [Men's Multi-Vitamin] 1 tab PO DAILY 01/22/14 12/09/22 Magnesium Oxide [Mag-Ox] 500 mg PO DAILY 05/20/19 12/09/22 Sertraline [Zoloft] 50 mg PO DAILY 05/20/19 12/09/22 Pantoprazole [Protonix] 40 mg PO DAILY 11/08/20 12/09/22 Albuterol Sulfate [Proair Hfa] 2 puff INHALATION RT-QID PRN 06/20/21 12/09/22 Potassium Chloride ER [K-Dur 10] 10 meq PO DAILY 11/23/21 12/09/22 Albuterol Nebulized [Ventolin 2.5 mg INHALATION RT-QID PRN 07/30/22 12/09/22 Nebulized] Aspirin EC [Ecotrin Low Dose] 81 mg PO DAILY 07/30/22 12/09/22 Atorvastatin [Lipitor] 40 mg PO HS 07/30/22 12/09/22 Losartan [Cozaar] 75 mg PO HS@2100 07/30/22 12/09/22 Metoprolol Tartrate [Lopressor] 25 mg PO BID@0900,2100 07/30/22 12/09/22 Spironolactone [Aldactone] 25 mg PO DAILY 07/30/22 12/09/22 Warfarin [Coumadin] 7.5 mg PO SUTUTHSA@1700 07/30/22 12/09/22 Warfarin [Coumadin] 10 mg PO MOWEFR@1700 07/30/22 12/09/22 Empagliflozin [Jardiance] 25 mg PO DAILY 12/09/22 12/09/22 Fluticasone/Umeclidin/Vilanter 1 puff INHALATION RT-DAILY 12/09/22 12/09/22 [Mey Sammita 100-62.5-25] Insulin Glargine,Hum.rec.anlog 20 units SQ DAILY 12/09/22 12/11/22 [Lantus Solostar Pen] Isosorbide Mononitrate ER [Imdur] 30 mg PO DAILY 12/09/22 12/09/22 Ranolazine [Ranexa] 500 mg PO BID@0900,2100 12/09/22 12/09/22 metFORMIN HCL [Glucophage] 500 mg PO BID@0900,1700 12/09/22 12/09/22 Previous Rx's Medication Instructions Recorded Acetaminophen Tab [Tylenol] 650 mg PO Q6HR PRN tab 12/11/22 Budesonide-Formot 160-4.5 Mcg 2 puff INHALATION RT-BID 30 Days 12/11/22 [Symbicort 160-4.5 Mcg Inhaler] #1 each Furosemide [Lasix] 40 mg PO BID@0900,1600 #60 tab 12/11/22 Thiamine [Vitamin B-1] 100 mg PO DAILY #30 tab 12/11/22 Allergies Allergy/AdvReac Type Severity Reaction Status Date / Time Penicillins Allergy Unknown Verified 06/26/23 18:11 Childhood Review of Systems ROS Statement: Those systems with pertinent positive or pertinent negative responses have been documented in the HPI. ROS Other: All systems not noted in ROS Statement are negative. Past Medical History Past Medical History: Atrial Fibrillation, Coronary Artery Disease (CAD), Chest Pain / Angina, Heart Failure, GERD/Reflux, Hyperlipidemia, Hypertension, Pneumonia, Sleep Apnea/CPAP/BIPAP Additional Past Medical History / Comment(s): DIVERTICULITIS. ALEISHA with Cpap use History of Any Multi-Drug Resistant Organisms: None Reported Past Surgical History: Appendectomy, Coronary Bypass/CABG, Heart Catheterization With Stent Additional Past Surgical History / Comment(s): 2017 PCI with stent, 2018 CABG 2 vessel with mitral valve replacement, cardioversion x 3, DYLAN x2, EGD, colonoscopy, stress test done Past Anesthesia/Blood Transfusion Reactions: No Reported Reaction Date of Last Stent Placement:: 01/22/18 Past Psychological History: No Psychological Hx Reported Smoking Status: Former smoker Past Alcohol Use History: None Reported, Occasional Past Drug Use History: None Reported - Past Family History Father Family Medical History: Congestive Heart Failure (CHF) Additional Family Medical History / Comment(s): Father of CHF at the age of 68yrs. Mother Family Medical History: No Reported History Additional Family Medical History / Comment(s): Mother at the age of 62 or 63 yrs from myasthenia gravis. Brother(s) Family Medical History: Coronary Artery Disease (CAD) Additional Family Medical History / Comment(s): ONE BROTHER HAD CABG Sister(s) Family Medical History: Coronary Artery Disease (CAD) Additional Family Medical History / Comment(s): ONE SISTER HAS HEART STENTS. ONE SISTER HAS HAD CABG General Exam Limitations: no limitations General appearance: alert, in no apparent distress Head exam: Present: atraumatic, normocephalic, normal inspection Eye exam: Present: normal appearance, EOMI Neck exam: Present: normal inspection, full ROM Respiratory exam: Present: wheezes. Absent: respiratory distress, rales, rhonchi, stridor Cardiovascular Exam: Present: regular rate, normal rhythm, normal heart sounds. Absent: systolic murmur, diastolic murmur, rubs, gallop, clicks Neurological exam: Present: alert, oriented X3 Psychiatric exam: Present: normal affect, normal mood Skin exam: Present: warm, dry, intact, normal color. Absent: rash Course Vital Signs 06/26/23 06/26/23 06/26/23 18:06 21:03 21:11 Temperature 97.5 F L Pulse Rate 97 79 85 Respiratory 18 16 Rate Blood Pressure 140/78 145/80 O2 Sat by Pulse 96 95 Oximetry 06/26/23 06/26/23 06/26/23 21:14 21:36 22:25 Temperature Pulse Rate 80 84 84 Respiratory 20 18 Rate Blood Pressure 133/73 148/80 O2 Sat by Pulse 96 96 Oximetry 06/26/23 06/26/23 06/27/23 22:32 22:43 00:17 Temperature Pulse Rate 85 88 88 Respiratory 20 Rate Blood Pressure 132/74 O2 Sat by Pulse 94 L Oximetry Medical Decision Making - Medical Decision Making Sinus tachycardia with first-degree AV block ventricular rate 100. SD interval 227. QRS 122. QT 373. QTC 430. Right bundle branch block. No acute changes from previous EKG. Was pt. sent in by a medical professional or institution (, TAD, CLOTH PRESSER, urgent care, hospital, or [facility]...) When possible be specific @ -No Did you speak to anyone other than the patient for history (EMS, parent, family, police, friend...)? What history was obtained from this source @ -No Did you review nursing and triage notes (agree or disagree)? Why? @ -I reviewed and agree with nursing and triage notes Were old charts reviewed (outside hosp., previous admission, EMS record, old EKG, old radiological studies, urgent care reports/EKG's, ch[facility] records)? Report findings @ -No old charts were reviewed Differential Diagnosis (chest pain, altered mental status, abdominal pain women, abdominal pain men, vaginal bleeding, weakness, fever, dyspnea, syncope, headache, dizziness, GI bleed, back pain, seizure, CVA, palpatations, mental health, musculoskeletal)? @ -MDM Differential Dyspnea: Coronary syndrome, arrhythmia, tamponade, asthma, COPD, pulmonary embolism, pneumonia, pneumothorax, pulmonary effusion, anaphylaxis, diabetic ketoacidosis, flailed chest, pulmonary contusion, diaphragmatic rupture, anemia, neuromuscular this is not meant to be an all-inclusive list. EKG interpreted by me (3pts min.). @ -As above X-rays interpreted by me (1pt min.). @ -Prominent pulmonary vascular markings with slight increased infiltrate along the lung bases. Correlate for subsegmental atelectasis or volume overload. CT interpreted by me (1pt min.). @ -None done U/S interpreted by me (1pt. min.). @ -None done What testing was considered but not performed or refused? (CT, X-rays, U/S, labs)? Why? @ -None What meds were considered but not given or refused? Why? @ -None Did you discuss the management of the patient with other professionals (professionals i.e. TAD Lopez, CLOTH PRESSER, lab, RT, psych nurse, social work nurse, blasting coal miner, teacher, credit products officer, shoe parts caser)? Give summary @ -I spoke with Marcela from [facility] hospitalist group who accepted admission Was smoking cessation discussed for >3mins.? @ -No Was critical care preformed (if so, how long)? @ -No Were there social determinants of health that impacted care today? How? (Homelessness, low income, unemployed, alcoholism, drug addiction, transportation, low edu. Level, literacy, decrease access to med. care, nursing home, rehab)? @ -No Was there de-escalation of care discussed even if they declined (Discuss DNR or withdrawal of care, Hospice)? DNR status @ -No What co-morbidities impacted this encounter? (DM, HTN, Smoking, COPD, CAD, Cancer, CVA, ARF, Chemo, Hep., AIDS, mental health diagnosis, sleep apnea, morbid obesity)? @ -None Was patient admitted / discharged? Hospital course, mention meds given and route, prescriptions, significant lab abnormalities, going to OR and other pertinent info. @ -58-year-old male presenting with chief complaint of chest pain and dyspnea. On physical examination there are diffuse wheezes heard on auscultation. No leukocytosis or anemia. Negative d-dimer and troponin. Chest x-ray shows most likely atelectasis given that the patient's BNP is 65. Patient has some improvement after Solu-Medrol and 2 DuoNeb treatments, however he is still dif fusely wheezing. He'll be admitted for COPD exacerbation and chest pain. Follow-up with PCP. Report back to ER with any new or worsening symptoms. Discussed return parameters and answered all questions. Patient conveyed verbal understanding and agreed to the plan. I discussed this case in detail with my attending Dr. Barker Undiagnosed new problem with uncertain prognosis? @ -No Drug Therapy requiring intensive monitoring for toxicity (Heparin, Nitro, Insulin, Cardizem)? @ -No Were any procedures done? @ -No Diagnosis/symptom? @ -COPD Acute, or Chronic, or Acute on Chronic? @ -Acute on chronic Uncomplicated (without systemic symptoms) or Complicated (systemic symptoms)? @ -Complicated Side effects of treatment? @ -No Exacerbation, Progression, or Severe Exacerbation? @ -No Poses a threat to life or bodily function? How? (Chest pain, USA, SC, pneumonia, PE, COPD, DKA, ARF, appy, cholecystitis, CVA, Diverticulitis, Homicidal, Suicidal, threat to staff... and all critical care pts) @ -Yes Diagnosis/symptom? @Chest pain Acute, or Chronic, or Acute on Chronic? @Acute Uncomplicated (without systemic symptoms) or Complicated (systemic symptoms)? @Complicated Side effects of treatment? @ none Exacerbation, Progression, or Severe Exacerbation] @ no Poses a threat to life or bodily function? @Yes - Lab Data Result diagrams: 06/26/23 18:26 06/26/23 18:26 Lab Results 06/26/23 06/26/23 06/26/23 Range/Units 18:26 18:26 18:26 WBC 6.5 (3.8-10.6) k/uL RBC 4.81 (4.30-5.90) m/uL Hgb 15.2 (13.0-17.5) gm/dL Hct 44.8 (39.0-53.0) % MCV 93.1 (80.0-100.0) fL MCH 31.6 (25.0-35.0) pg MCHC 33.9 (31.0-37.0) g/dL RDW 13.3 (11.5-15.5) % Plt Count 187 (150-450) k/uL MPV 8.2 Neutrophils % 63 % Lymphocytes % 21 % Monocytes % 8 % Eosinophils % 3 % Basophils % 1 % Neutrophils # 4.1 (1.3-7.7) k/uL Lymphocytes # 1.4 (1.0-4.8) k/uL Monocytes # 0.5 (0-1.0) k/uL Eosinophils # 0.2 (0-0.7) k/uL Basophils # 0.0 (0-0.2) k/uL PT 18.9 H (10.0-12.5) sec INR 1.9 H (<1.2) APTT 32.5 H (22.0-30.0) sec D-Dimer (<0.60) mg/L FEU Sodium 135 L (137-145) mmol/L Potassium 3.8 (3.5-5.1) mmol/L Chloride 102 (98-107) mmol/L Carbon Dioxide 20 L (22-30) mmol/L Anion Gap 13 mmol/L BUN 16 (9-20) mg/dL Creatinine 0.84 (0.66-1.25) mg/dL Est GFR (CKD-EPI)AfAm >90 (>60 ml/min/1.73 sqM) Est GFR (CKD-EPI)NonAf >90 (>60 ml/min/1.73 sqM) Glucose 164 H (74-99) mg/dL Plasma Lactic Acid Wilfrid (0.7-2.0) mmol/L Calcium 9.4 (8.4-10.2) mg/dL Total Bilirubin 1.0 (0.2-1.3) mg/dL AST 35 (17-59) U/L ALT 36 (4-49) U/L Alkaline Phosphatase 90 (38-126) U/L Troponin I (0.000-0.034) ng/mL NT-Pro-B Natriuret Pep pg/mL Total Protein 7.1 (6.3-8.2) g/dL Albumin 4.2 (3.5-5.0) g/dL 06/26/23 06/26/23 06/26/23 Range/Units 18:26 18:26 18:26 WBC (3.8-10.6) k/uL RBC (4.30-5.90) m/uL Hgb (13.0-17.5) gm/dL Hct (39.0-53.0) % MCV (80.0-100.0) fL MCH (25.0-35.0) pg MCHC (31.0-37.0) g/dL RDW (11.5-15.5) % Plt Count (150-450) k/uL MPV Neutrophils % % Lymphocytes % % Monocytes % % Eosinophils % % Basophils % % Neutrophils # (1.3-7.7) k/uL Lymphocytes # (1.0-4.8) k/uL Monocytes # (0-1.0) k/uL Eosinophils # (0-0.7) k/uL Basophils # (0-0.2) k/uL PT (10.0-12.5) sec INR (<1.2) APTT (22.0-30.0) sec D-Dimer 0.46 (<0.60) mg/L FEU Sodium (137-145) mmol/L Potassium (3.5-5.1) mmol/L Chloride (98-107) mmol/L Carbon Dioxide (22-30) mmol/L Anion Gap mmol/L BUN (9-20) mg/dL Creatinine (0.66-1.25) mg/dL Est GFR (CKD-EPI)AfAm (>60 ml/min/1.73 sqM) Est GFR (CKD-EPI)NonAf (>60 ml/min/1.73 sqM) Glucose (74-99) mg/dL Plasma Lactic Acid Wilfrid 1.5 (0.7-2.0) mmol/L Calcium (8.4-10.2) mg/dL Total Bilirubin (0.2-1.3) mg/dL AST (17-59) U/L ALT (4-49) U/L Alkaline Phosphatase (38-126) U/L Troponin I 0.025 (0.000-0.034) ng/mL NT-Pro-B Natriuret Pep pg/mL Total Protein (6.3-8.2) g/dL Albumin (3.5-5.0) g/dL 06/26/23 Range/Units 18:26 WBC (3.8-10.6) k/uL RBC (4.30-5.90) m/uL Hgb (13.0-17.5) gm/dL Hct (39.0-53.0) % MCV (80.0-100.0) fL MCH (25.0-35.0) pg MCHC (31.0-37.0) g/dL RDW (11.5-15.5) % Plt Count (150-450) k/uL MPV Neutrophils % % Lymphocytes % % Monocytes % % Eosinophils % % Basophils % % Neutrophils # (1.3-7.7) k/uL Lymphocytes # (1.0-4.8) k/uL Monocytes # (0-1.0) k/uL Eosinophils # (0-0.7) k/uL Basophils # (0-0.2) k/uL PT (10.0-12.5) sec INR (<1.2) APTT (22.0-30.0) sec D-Dimer (<0.60) mg/L FEU Sodium (137-145) mmol/L Potassium (3.5-5.1) mmol/L Chloride (98-107) mmol/L Carbon Dioxide (22-30) mmol/L Anion Gap mmol/L BUN (9-20) mg/dL Creatinine (0.66-1.25) mg/dL Est GFR (CKD-EPI)AfAm (>60 ml/min/1.73 sqM) Est GFR (CKD-EPI)NonAf (>60 ml/min/1.73 sqM) Glucose (74-99) mg/dL Plasma Lactic Acid Wilfrid (0.7-2.0) mmol/L Calcium (8.4-10.2) mg/dL Total Bilirubin (0.2-1.3) mg/dL AST (17-59) U/L ALT (4-49) U/L Alkaline Phosphatase (38-126) U/L Troponin I (0.000-0.034) ng/mL NT-Pro-B Natriuret Pep 65 pg/mL Total Protein (6.3-8.2) g/dL Albumin (3.5-5.0) g/dL Disposition Clinical Impression: COPD (chronic obstructive pulmonary disease), Chest pain Disposition: ADMITTED IP TO THIS HOSP Condition: Fair Time of Disposition: 23:37
[2023-06-26] MEDS ORDERED: NALOXONE 0.4 MG/ML 1 ML VIAL IVP PRN (23:33)
[2023-06-26] MEDS ORDERED: IPRATROPIUM-ALBUTEROL 3 ML NEB INHALATION PRN (23:33)
[2023-06-26] MEDS ORDERED: HYDROcodone/APAP 5-325MG 1 EACH TAB PO PRN (23:33)
[2023-06-27] MEDS: methylPREDNISolone SOD SUCCI 125 MG/2 ML VIAL IV SCH ×2 (00:14→06:17)
[2023-06-27] MEDS: BENZONATATE 100 MG CAP PO SCH ×2 (01:12→08:13)
[2023-06-27] MEDS: MORPHINE SULFATE 4 MG/ML SYRINGE IVP PRN ×2 (03:17→08:58)
--- NOTE | 2023-06-27 06:11 | P.CNPUL ---
History of Present Illness Consult date: 06/27/23 Reason for consult: COPD Chief complaint: Shortness of breath and nonproductive cough History of present illness: I am seeing this patient in consultation today 06/27/2023 in the emergency room for suspected acute COPD exacerbation. Patient is a 58-year-old white male and has past medical history significant for moderate chronic obstructive pulmonary disease, obstructive sleep apnea maintained on VPAP auto, prior mitral valve regurgitation and mitral valve replacement, paroxysmal atrial fibrillation, coronary artery disease with previous coronary stents and subsequent 2 vessel bypass surgery, benign essential hypertension, hyperlipidemia, diabetes mellitus type 2, and obesity. Patient does follow with Dr. Garcia in the office for management of his COPD and obstructive sleep apnea. He is listed as a PCP in the EMR, but Dr. Valderrama is actually his family provider. Patient presented to the emergency room late last night with the chief complaint of progressively worsening shortness of breath and a persistent nonproductive cough over the last 2-3 days. He also states he has some pleuritic like chest pain that increases with deep breaths and coughing. It is substernal and radiates to the right infrascapular area. Patient denies any significant fevers, chills, hemoptysis. Patient is currently sitting up in bed, on room air, in no acute distress. Chest x-ray on arrival showed prominent pulmonary vascular markings with what seems to be atelectasis at the bases. CBC on arrival was unremarkable. No leukocytosis. D-dimer not elevated. BMP on arrival was unremarkable. Lactic acid level I.5. Troponins non-elevated 2. NT proBNP low at 65. Patient has been started on medications for COPD including duo nebs, Symbicort inhaler, and IV Solu-Medrol. Patient is to be admitted to the general medical floor. Review of Systems REVIEW OF SYSTEMS: CONSTITUTIONAL: Denies any recent significant weight loss or weight gain. EYES: Denies change in vision. EARS, NOSE, MOUTH, THROAT: Denies headaches, denies sore throat. CARDIOVASCULAR: Denies palpitations, lightheadedness, syncopal episodes, orthopnea, lower extremity edema. RESPIRATORY: The HPI GASTROINTESTINAL: Denies change in appetite, abdominal pain, nausea and vomiting, or diarrhea GENITOURINARY: Denies hematuria, denies infections. MUSKULOSKELETAL: Denies pain, denies swelling. INTEGUMENTARY: Denies rash, denies eczema. NEUROLOGICAL: Denies recent memory loss, no recent seizure activity. PSYCHIATRIC: Denies anxiety, denies depression. HEMATOLOGIC/LYMPHATIC: Denies anemia, denies enlarged lymph node Past Medical History Past Medical History: Atrial Fibrillation, Coronary Artery Disease (CAD), Chest Pain / Angina, Heart Failure, GERD/Reflux, Hyperlipidemia, Hypertension, Pneumonia, Sleep Apnea/CPAP/BIPAP Additional Past Medical History / Comment(s): DIVERTICULITIS. ALEISHA with Cpap use History of Any Multi-Drug Resistant Organisms: None Reported Past Surgical History: Appendectomy, Coronary Bypass/CABG, Heart Catheterization With Stent Additional Past Surgical History / Comment(s): 2018 PCI with stent, 2018 CABG 2 vessel with mitral valve replacement, cardioversion x 3, DYLAN x2, EGD, colonoscopy, stress test done Past Anesthesia/Blood Transfusion Reactions: No Reported Reaction Date of Last Stent Placement:: 01/22/18 Past Psychological History: No Psychological Hx Reported Smoking Status: Former smoker Past Alcohol Use History: None Reported, Occasional Past Drug Use History: None Reported - Past Family History Father Family Medical History: Congestive Heart Failure (CHF) Additional Family Medical History / Comment(s): Father of CHF at the age of 68yrs. Mother Family Medical History: No Reported History Additional Family Medical History / Comment(s): Mother at the age of 62 or 63 yrs from myasthenia gravis. Brother(s) Family Medical History: Coronary Artery Disease (CAD) Additional Family Medical History / Comment(s): ONE BROTHER HAD CABG Sister(s) Family Medical History: Coronary Artery Disease (CAD) Additional Family Medical History / Comment(s): ONE SISTER HAS HEART STENTS. ONE SISTER HAS HAD CABG Medications and Allergies Home Medications Medication Instructions Recorded Confirmed Type Multivitamin [Men's Multi-Vitamin] 1 tab PO DAILY 01/22/14 12/09/22 History Magnesium Oxide [Mag-Ox] 500 mg PO DAILY 05/20/19 12/09/22 History Sertraline [Zoloft] 50 mg PO DAILY 05/20/19 12/09/22 History Pantoprazole [Protonix] 40 mg PO DAILY 11/08/20 12/09/22 History Albuterol Sulfate [Proair Hfa] 2 puff INHALATION RT-QID PRN 06/20/21 12/09/22 History Potassium Chloride ER [K-Dur 10] 10 meq PO DAILY 11/23/21 12/09/22 History Albuterol Nebulized [Ventolin 2.5 mg INHALATION RT-QID PRN 07/30/22 12/09/22 History Nebulized] Aspirin EC [Ecotrin Low Dose] 81 mg PO DAILY 07/30/22 12/09/22 History Atorvastatin [Lipitor] 40 mg PO HS 07/30/22 12/09/22 History Losartan [Cozaar] 75 mg PO HS@209907/30/22 12/09/22 History Metoprolol Tartrate [Lopressor] 25 mg PO BID@0900,2100 07/30/22 12/09/22 History Spironolactone [Aldactone] 25 mg PO DAILY 07/30/22 12/09/22 History Warfarin [Coumadin] 7.5 mg PO SUTUTHSA@1700 07/30/22 12/09/22 History Warfarin [Coumadin] 10 mg PO MOWEFR@1700 07/30/22 12/09/22 History Empagliflozin [Jardiance] 25 mg PO DAILY 12/09/22 12/09/22 History Fluticasone/Umeclidin/Vilanter 1 puff INHALATION RT-DAILY 12/09/22 12/09/22 History [Yonilejacoby Ellipta 100-62.5-25] Insulin Glargine,Hum.rec.anlog 20 units SQ DAILY 12/09/22 12/11/22 History [Lantus Solostar Pen] Isosorbide Mononitrate ER [Imdur] 30 mg PO DAILY 12/09/22 12/09/22 History Ranolazine [Ranexa] 500 mg PO BID@0900,2100 12/09/22 12/09/22 History metFORMIN HCL [Glucophage] 500 mg PO BID@0900,1700 12/09/22 12/09/22 History Acetaminophen Tab [Tylenol] 650 mg PO Q6HR PRN tab 12/11/22 Rx Budesonide-Formot 160-4.5 Mcg 2 puff INHALATION RT-BID 30 Days 12/11/22 Rx [Symbicort 160-4.5 Mcg Inhaler] #1 each Furosemide [Lasix] 40 mg PO BID@0900,1600 #60 tab 12/11/22 Rx Thiamine [Vitamin B-1] 100 mg PO DAILY #30 tab 12/11/22 Rx Allergies Allergy/AdvReac Type Severity Reaction Status Date / Time Penicillins Allergy Unknown Verified 06/26/23 18:11 Childhood Physical Exam Vitals: Vital Signs Temp Pulse Resp BP Pulse Ox 06/27/23 03:23 90 20 144/80 94 L 06/27/23 00:17 88 20 132/74 94 L 06/26/23 22:43 88 06/26/23 22:32 85 06/26/23 22:25 84 18 148/80 96 06/26/23 21:36 84 20 133/73 96 06/26/23 21:14 80 06/26/23 21:11 85 16 145/80 95 06/26/23 21:03 79 06/26/23 18:06 97.5 F L 97 18 140/78 96 Intake and Output 06/26/23 06/26/23 06/27/23 14:59 22:59 06:59 Other: Weight 122.47 kg GENERAL EXAM: Alert, 58-year-old obese white male appearing stated age , comfortable in no apparent distress. HEAD: Normocephalic and atraumatic EYES: Normal reaction of pupils, equal size. NOSE: Clear with pink turbinates. THROAT: No erythema or exudates. NECK: No masses, no JVD. CHEST: No chest wall deformity. LUNGS: Equal air entry with expiratory wheezes heard throughout. On room air. No conversational dyspnea or accessory muscle use.. CVS: S1 and S2 normal with no audible murmur, regular rhythm. No extra heart sounds ABDOMEN: No hepatosplenomegaly, active bowel sounds, no guarding or rigidity. SPINE: No scoliosis or deformity SKIN: No rashes CENTRAL NERVOUS SYSTEM: No focal deficits, tone is normal in all 4 extremities. EXTREMITIES: There is no peripheral edema, clubbing, or cyanosis. Peripheral pulses are intact. Results - Laboratory Findings CBC and BMP: 06/26/23 18:26 06/26/23 18:26 PT/INR, D-dimer PT 18.9 sec (10.0-12.5) H 06/26/23 18:26 INR 1.9 (<1.2) H 06/26/23 18:26 D-Dimer 0.46 mg/L FEU (<0.60) 06/26/23 18:26 Abnormal lab findings: Abnormal Labs 06/26/23 06/26/23 18:26 18:26 PT 18.9 H INR 1.9 H APTT 32.5 H Sodium 135 L Carbon Dioxide 20 L Glucose 164 H - Diagnostic Findings Chest x-ray: image reviewed Assessment and Plan Assessment: Acute COPD exacerbation, Chest x-ray on arrival showed prominent pulmonary vascular markings with what seems to be atelectasis at the bases. NT pro-bnp 65. Acute dyspnea, secondary to above Chest pain, no acute ischemic changes seen on ECG. Troponins non-elevated. Obstructive sleep apnea, maintained on VPAP auto with a minimum pressure of 10 and a maximum pressure of 20 and outpatient basis Coronary artery disease, with previous coronary stents and subsequent coronary artery bypass surgery History of severe mitral valve regurgitation status post mechanical mitral valve replacement 2017, anticoagulated on Coumadin History of paroxysmal nature fibrillation Benign essential hypertension Hyperlipidemia GERD Obesity with a BMI of 36.6 kg/m Ex-smoker Plan: Patient's medications, labs, chest x-ray reviewed On room air Start patient on combination of bronchodilators, Symbicort inhaler, and IV Solu- Medrol Tessalon Perles for cough Patient does not currently have his home CPAP unit with him, this can be brought in Coumadin to be restarted, INR 1.9 We will continue to follow I have personally seen and examined the patient, performed the documentation and the assessment and plan as written. Number of minutes spent on the visit:20 Time with Patient: Greater than 30
[2023-06-27] MEDS ORDERED: INSULIN DETEMIR (LEVEMIR) 100 UNIT/ML SYR SQ SCH (07:00)
[2023-06-27] MEDS ORDERED: PANTOPRAZOLE 40 MG TABLET PO SCH (07:30)
[2023-06-27] MEDS ORDERED: SYMBICORT 160-4.5 MCG INHALER INHALATION SCH (08:00)
[2023-06-27] MEDS: IPRATROPIUM-ALBUTEROL 3 ML NEB INHALATION SCH ×2 (08:13→11:53)
[2023-06-27 08:32] VITALS: RESP 18
[2023-06-27 08:51] VITALS: BP 137/77; PULSE 96
[2023-06-27] MEDS ORDERED: METOPROLOL TARTRATE 25 MG TAB PO STA (08:56)
[2023-06-27] MEDS ORDERED: DAPAGLIFLOZIN PROPANEDIOL 10 MG TABLET PO SCH (09:00)
[2023-06-27] MEDS ORDERED: ASPIRIN 81 MG PO SCH (09:00)
[2023-06-27] MEDS ORDERED: THIAMINE 100 MG TAB PO SCH (09:00)
[2023-06-27] MEDS ORDERED: RANOLAZINE 500 MG TAB.ER.12H PO SCH (09:00)
[2023-06-27] MEDS ORDERED: MAGNESIUM OXIDE 400 MG TAB PO SCH (09:00)
[2023-06-27] MEDS ORDERED: METOPROLOL TARTRATE 50 MG TAB PO SCH (09:00)
[2023-06-27] MEDS ORDERED: FUROSEMIDE 40 MG TAB PO SCH (09:00)
[2023-06-27] MEDS ORDERED: NITROGLYCERIN OINT 1 INCH/GM PACKET TOPICAL SCH (09:00)
[2023-06-27] MEDS ORDERED: METOPROLOL TARTRATE 25 MG TAB PO SCH (09:00)
[2023-06-27] MEDS ORDERED: SPIRONOLACTONE 25 MG TAB PO SCH (09:00)
[2023-06-27] MEDS ORDERED: ISOSORBIDE MONONITRATE ER 30 MG TAB.ER.24H PO SCH (09:00)
[2023-06-27] MEDS ORDERED: POTASSIUM CHLORIDE ER 10 MEQ TAB.ER.PRT PO SCH (09:00)
[2023-06-27] MEDS ORDERED: metFORMIN 500 MG TAB PO SCH (09:00)
[2023-06-27] MEDS ORDERED: OSELTAMIVIR 75 MG CAP PO SCH (09:00)
[2023-06-27] MEDS ORDERED: SERTRALINE 50 MG TAB PO SCH (09:00)
[2023-06-27 10:11] LABS: Prothrombin Time 19.9 sec (10.0-12.5)
--- NOTE | 2023-06-27 10:25 | P.CRDCN ---
History of Present Illness Consult date: 06/27/23 Consult reason: chest pain History of present illness: HISTORY OF PRESENT ILLNESS: This is a 58-year-old male patient of Dr. Valles with a past medical history significant for coronary artery disease with previous CABG and mitral valve replacement with mechanical valve, hypertension, hyperlipidemia, chronic diastolic heart failure, diabetes mellitus type 2. We have been asked to see the patient in consultation for chest pain. Patient presented to the hospital due to shortness of breath ongoing for a couple days along with cold sweats while he was sitting in a chair. Patient has tested positive for influenza A. Patient is seen today in the emergency center waiting for a bed on the observation unit. EKG reveals sinus rhythm without acute ST changes. Chest xray prominent pulmonary vascular markings with slight increased infiltrat e along the lung bases. Correlate for subsegmental atelectasis or volume overload. CBC unremarkable. INR is 1.9. D-dimer 0.46. Sodium 135, potassium 3.8, BUN 16 creatinine 0.84. Liver function tests are normal. Troponin negative 3. Blood sugar 164. Current home cardiac medications include aspirin 81 mg daily, atorvastatin 40 mg at bedtime, Jardiance 25 mg daily, Lasix 40 mg 3 times daily Imdur 30 mg daily, losartan 75 mg at bedtime, magnesium oxide 500 mg daily, Lopressor 25 mg twice daily, potassium chloride 10 mEq daily, Ranexa 500 mg twice daily, Aldactone 25 mg daily, Coumadin 10 mg on Sunday and 7.5 mg on the other days. Lexiscan stress test performed 12/2022 revealed a couple fixed defects along the apical septal wall and second along the mid inferior lateral wall could represent areas of old infarct or attenuation artifact. The appearance of reversibility along the mid to basal inferior wall not corroborated on the polar maps. Suspect prominent diaphragmatic attenuation artifact rather than inducible ischemia. Echocardiogram 10/27/2022 revealed EF of 55%, mitral valve not well visualized and appears mechanical with gradient of about 6 mm mean, mild mitral regurgitation, no significant pulmonary hypertension Cardiac catheterization 10/30/2022 revealed dominant RCA calcified chronically occluded left main 50% lesion. LAD heavily calcified with mild to moderate diffuse disease, circumflex occluded, SVG to circumflex and BINTA to RCA are both patent. LVEDP normal. REVIEW OF SYSTEMS: At the time of my exam: CONSTITUTIONAL: Denies fever + chills. HEENT: Denies blurred vision, vision changes, or eye pain. Denies hemoptysis CARDIOVASCULAR: Reports chest pain. Denies orthopnea. Denies PND. Denies palpitations RESPIRATORY: + shortness of breath. GASTROINTESTINAL: Denies abdominal pain. Denies nausea or vomiting. HEMATOLOGIC: Denies bleeding disorders. GENITOURINARY: Denies any blood in urine. SKIN: Denies pruitis. Denies rash. PHYSICAL EXAM: VITAL SIGNS: Reviewed. GENERAL: Well-developed in no acute distress. HEENT: Head is normocephalic. Pupils are equal, round. Sclerae anicteric. NEUROLOGIC: Awake and alert. Oriented x 3. Full examination deferred due to influenza a isolation ASSESSMENT: Chest pain, shortness of breath and cold sweats most likely secondary to influenza A Coronary artery disease with previous CABG and mitral valve replacement with mechanical valve Hypertension Hyperlipidemia Chronic diastolic heart failure with preserved ejection fraction PLAN: Resume home cardiac medications *Patient on Nitropaste 1 inch 3 times daily Repeat one troponin Increase metoprolol tartrate 50 mg twice daily Further recommendations pending patient course Nurse practitioner note has been reviewed by physician. Signing provider agrees with the documented findings, assessment, and plan of care. Past Medical History Past Medical History: Atrial Fibrillation, Coronary Artery Disease (CAD), Chest Pain / Angina, Heart Failure, GERD/Reflux, Hyperlipidemia, Hypertension, Pneumonia, Sleep Apnea/CPAP/BIPAP Additional Past Medical History / Comment(s): DIVERTICULITIS. ALEISHA with Cpap use History of Any Multi-Drug Resistant Organisms: None Reported Past Surgical History: Appendectomy, Coronary Bypass/CABG, Heart Catheterization With Stent Additional Past Surgical History / Comment(s): 2018 PCI with stent, 2018 CABG 2 vessel with mitral valve replacement, cardioversion x 3, DYLAN x2, EGD, colonoscopy, stress test done Past Anesthesia/Blood Transfusion Reactions: No Reported Reaction Date of Last Stent Placement:: 01/22/18 Past Psychological History: No Psychological Hx Reported Smoking Status: Former smoker Past Alcohol Use History: None Reported, Occasional Past Drug Use History: None Reported - Past Family History Father Family Medical History: Congestive Heart Failure (CHF) Additional Family Medical History / Comment(s): Father of CHF at the age of 68yrs. Mother Family Medical History: No Reported History Additional Family Medical History / Comment(s): Mother at the age of 62 or 63 yrs from myasthenia gravis. Brother(s) Family Medical History: Coronary Artery Disease (CAD) Additional Family Medical History / Comment(s): ONE BROTHER HAD CABG Sister(s) Family Medical History: Coronary Artery Disease (CAD) Additional Family Medical History / Comment(s): ONE SISTER HAS HEART STENTS. ONE SISTER HAS HAD CABG Medications and Allergies Home Medications Medication Instructions Recorded Confirmed Type Multivitamin [Men's Multi-Vitamin] 1 tab PO DAILY 01/22/14 06/27/23 History Magnesium Oxide [Mag-Ox] 500 mg PO DAILY 05/20/19 06/27/23 History Sertraline [Zoloft] 50 mg PO DAILY 05/20/19 06/27/23 History Pantoprazole [Protonix] 40 mg PO DAILY 11/08/20 06/27/23 History Potassium Chloride ER [K-Dur 10] 10 meq PO DAILY 11/23/21 06/27/23 History Aspirin EC [Ecotrin Low Dose] 81 mg PO DAILY 07/30/22 06/27/23 History Atorvastatin [Lipitor] 40 mg PO HS 07/30/22 06/27/23 History Losartan [Cozaar] 75 mg PO HS@2100 07/30/22 06/27/23 History Metoprolol Tartrate [Lopressor] 25 mg PO BID@0900,2100 07/30/22 06/27/23 History Spironolactone [Aldactone] 25 mg PO DAILY 07/30/22 06/27/23 History Warfarin [Coumadin] 7.5 mg PO SUTUTHSA 07/30/22 06/27/23 History Empagliflozin [Jardiance] 25 mg PO DAILY 12/09/22 06/27/23 History Fluticasone/Umeclidin/Vilanter 1 puff INHALATION RT-DAILY 12/09/22 06/27/23 History [Mey Harding 100-62.5-25] Insulin Glargine,Hum.rec.anlog 20 units SQ DAILY 12/09/22 06/27/23 History [Lantus Solostar Pen] Isosorbide Mononitrate ER [Imdur] 30 mg PO DAILY 12/09/22 06/27/23 History Ranolazine [Ranexa] 500 mg PO BID@0900,2100 12/09/22 06/27/23 History metFORMIN HCL [Glucophage] 500 mg PO BID@0900,1700 12/09/22 06/27/23 History ALPRAZolam [Xanax] 0.5 mg PO TID PRN 06/27/23 06/27/23 History Furosemide [Lasix] 40 mg PO TID 06/27/23 06/27/23 History Warfarin [Coumadin] 10 mg PO MOWEFR 06/27/23 06/27/23 History Allergies Allergy/AdvReac Type Severity Reaction Status Date / Time Penicillins Allergy Unknown Verified 06/27/23 09:19 Childhood Physical Exam Vitals: Vital Signs Temp Pulse Pulse Resp BP BP Pulse Ox 06/27/23 08:45 96 18 137/77 94 L 06/27/23 08:22 92 06/27/23 08:15 86 18 97 06/27/23 03:23 90 20 144/80 94 L 06/27/23 00:17 88 20 132/74 94 L 06/26/23 22:43 88 06/26/23 22:32 85 06/26/23 22:25 84 18 148/80 96 06/26/23 21:36 84 20 133/73 96 06/26/23 21:14 80 06/26/23 21:11 85 16 145/80 95 06/26/23 21:03 79 06/26/23 18:06 97.5 F L 97 18 140/78 96 Intake and Output 06/26/23 06/27/23 06/27/23 22:59 06:59 14:59 Other: Weight 122.47 kg Results 06/26/23 18:26 06/26/23 18:26 Cardiac Enzymes 06/26/23 06/26/23 06/27/23 Range/Units 18:26 18:26 00:29 AST 35 (17-59) U/L Troponin I 0.025 0.017 (0.000-0.034) ng/mL 06/27/23 Range/Units 04:30 AST (17-59) U/L Troponin I 0.026 (0.000-0.034) ng/mL Coagulation 06/26/23 Range/Units 18:26 PT 18.9 H (10.0-12.5) sec APTT 32.5 H (22.0-30.0) sec CBC 06/26/23 Range/Units 18:26 WBC 6.5 (3.8-10.6) k/uL RBC 4.81 (4.30-5.90) m/uL Hgb 15.2 (13.0-17.5) gm/dL Hct 44.8 (39.0-53.0) % Plt Count 187 (150-450) k/uL Comprehensive Metabolic Panel 06/26/23 Range/Units 18:26 Sodium 135 L (137-145) mmol/L Potassium 3.8 (3.5-5.1) mmol/L Chloride 102 (98-107) mmol/L Carbon Dioxide 20 L (22-30) mmol/L BUN 16 (9-20) mg/dL Creatinine 0.84 (0.66-1.25) mg/dL Glucose 164 H (74-99) mg/dL Calcium 9.4 (8.4-10.2) mg/dL AST 35 (17-59) U/L ALT 36 (4-49) U/L Alkaline Phosphatase 90 (38-126) U/L Total Protein 7.1 (6.3-8.2) g/dL Albumin 4.2 (3.5-5.0) g/dL Current Medications Generic Name Dose Route Start Last Admin Trade Name Freq PRN Reason Stop Dose Admin Hydrocodone Bitart/Acetaminophen 1 each 06/26/23 23:33 Hydrocodone/Apap 5-325mg 1 Each Tab PO Q6HR PRN Moderate to Severe Pain (4-10) Albuterol/Ipratropium 3 ml 06/26/23 23:33 Ipratropium-Albuterol 3 Ml Neb INHALATION RT-Q2H PRN Shortness Of Breath Or Wheezing Albuterol/Ipratropium 3 ml 06/27/23 08:00 06/27/23 08:13 Ipratropium-Albuterol 3 Ml Neb INHALATION 3 ml RT-QID SAMANTHA Administration Aspirin 81 mg 06/27/23 09:00 06/27/23 08:13 Aspirin 81 Mg PO 81 mg DAILY SAMANTHA Administration Atorvastatin Calcium 40 mg 06/27/23 21:00 Atorvastatin 40 Mg Tab PO HS SAMANTHA Benzonatate 200 mg 06/27/23 01:00 06/27/23 08:13 Benzonatate 100 Mg Cap PO 200 mg TID SAMANTHA Administration Budesonide/Formoterol Fumarate 2 puff 06/27/23 08:00 06/27/23 08:13 Symbicort 160-4.5 Mcg Inhaler INHALATION 2 puff RT-BID [facility] Administration Dapagliflozin 10 mg 06/27/23 09:00 06/27/23 08:14 Dapagliflozin Propanediol 10 Mg Tablet PO 10 mg DAILY [facility] Administration Furosemide 40 mg 06/27/23 09:00 06/27/23 08:13 Furosemide 40 Mg Tab PO 40 mg TID [facility] Administration Insulin Detemir 20 unit 06/27/23 07:00 06/27/23 08:15 Insulin Detemir (Levemir) 100 Unit/Ml Syr SQ 20 unit DAILY@0700 [facility] Administration Isosorbide Mononitrate 30 mg 06/27/23 09:00 06/27/23 08:13 Isosorbide Mononitrate Er 30 Mg Tab.Er.24h PO 30 mg DAILY [facility] Administration Losartan Potassium 75 mg 06/27/23 21:00 Losartan 25 Mg Tab PO HS@2100 [facility] Magnesium Oxide 200 mg 06/27/23 09:00 06/27/23 08:14 Magnesium Oxide 400 Mg Tab PO 200 mg DAILY [facility] Administration Metformin HCl 500 mg 06/27/23 09:00 06/27/23 08:13 Metformin 500 Mg Tab PO 500 mg BID@0900,1700 [facility] Administration Methylprednisolone Sodium Succinate 60 mg 06/27/23 00:00 06/27/23 06:17 Methylprednisolone Sod Succi 125 Mg/2 Ml Vial IV 60 mg Q6HR [facility] Administration Metoprolol Tartrate 50 mg 06/27/23 09:00 Metoprolol Tartrate 50 Mg Tab PO BID@0900,2100 [facility] Miscellaneous Information 0 each 06/27/23 04:49 Warfarin Per Pharmacy MISCELLANE DIRECTED PRN PER PROTOCOL Morphine Sulfate 4 mg 06/26/23 23:36 06/27/23 08:58 Morphine Sulfate 4 Mg/Ml Syringe IVP 4 mg Q4HR PRN Administration Pain Naloxone HCl 0.2 mg 06/26/23 23:33 Naloxone 0.4 Mg/Ml 1 Ml Vial IVP Q2M PRN Opioid Reversal Nitroglycerin 1 inch 06/27/23 09:00 Nitroglycerin Oint 1 Inch/Gm Packet TOPICAL Q8HR [facility] Oseltamivir Phosphate 75 mg 06/27/23 09:00 06/27/23 08:13 Oseltamivir 75 Mg Cap PO 07/01/23 21:01 75 mg Q12HR SAMANTHA Administration Protocol Pantoprazole Sodium 40 mg 06/27/23 07:30 06/27/23 08:13 Pantoprazole 40 Mg Tablet PO 40 mg [id number] SAMANTHA Administration Potassium Chloride 10 meq 06/27/23 09:00 06/27/23 08:13 Potassium Chloride Er 10 Meq Tab.Er.Prt PO 10 meq DAILY SAMANTHA Administration Ranolazine 500 mg 06/27/23 09:00 06/27/23 08:13 Ranolazine 500 Mg Tab.Er.12h PO 500 mg BID@0900,2100 [facility] Administration Sertraline HCl 50 mg 06/27/23 09:00 06/27/23 08:14 Sertraline 50 Mg Tab PO 50 mg DAILY SAMANTHA Administration Spironolactone 25 mg 06/27/23 09:00 06/27/23 08:14 Spironolactone 25 Mg Tab PO 25 mg DAILY SAMANTHA Administration Thiamine HCl 100 mg 06/27/23 09:00 06/27/23 08:14 Thiamine 100 Mg Tab PO 100 mg DAILY [facility] Administration Warfarin Sodium 7.5 mg 06/28/23 17:00 Warfarin 7.5 Mg Tab PO SUTUTHSA@1700 [facility] Protocol Warfarin Sodium 10 mg 06/27/23 17:00 Warfarin 10 Mg Tab PO MOWEFR@1700 [facility] Protocol Intake and Output 06/26/23 06/27/23 06/27/23 22:59 06:59 14:59 Other: Weight 122.47 kg 06/26/23 18:26 06/26/23 18:26
[2023-06-27] MEDS ORDERED: ALPRAZolam 0.5 MG TAB PO PRN (10:48)
--- NOTE | 2023-06-27 11:00 | P.HPIM ---
History of Present Illness Patient is a 58-year-old male came in with the complaints of worsening shortness of breath and persistent nonproductive cough. Patient is found to have influenza A. Patient doesn't have any pneumonia at this time patient is not whe ezing patient does have COPD quit smoking many years ago patient received systemic steroids at this time patient does have history of diabetes mellitus. Patient will not require any systemic steroids patient does have extensive cardiac and pulmonary history. Patient denied any chest pain at this time. Patient had 3 sets of troponins which are negative patient's EKG did not show any acute ST-T wave changes. Patient will be discharged today to follow up with primary care physician as an outpatient patient will be discharged on Tamiflu. REVIEW OF SYSTEMS: CONSTITUTIONAL: No fever, HEENT: No recent visual problems or hearing problems. Denied any sore throat. CARDIOVASCULAR: No chest pain, orthopnea, PND, no palpitations, no syncope. PULMONARY: no hemoptysis. GASTROINTESTINAL: No diarrhea, no nausea, no vomiting, no abdominal pain. NEUROLOGICAL: No headaches, no weakness, no numbness. HEMATOLOGICAL: Denies any bleeding or petechiae. GENITOURINARY: Denies any burning micturition, frequency, or urgency. MUSCULOSKELETAL/RHEUMATOLOGICAL: Denies any joint pain, swelling, or any muscle pain. ENDOCRINE: Denies any polyuria or polydipsia. The rest of the 14-point review of systems is negative. PHYSICAL EXAMINATION: GENERAL: The patient is alert and oriented x3, not in any acute distress. Well developed, well nourished. HEENT: Pupils are round and equally reacting to light. EOMI. No scleral icterus. No conjunctival pallor. Normocephalic, atraumatic. No pharyngeal erythema. No thyromegaly. CARDIOVASCULAR: S1 and S2 present. No murmurs, rubs, or gallops. PULMONARY: Chest is clear to auscultation, no wheezing . Mild crackles in the bases ABDOMEN: Soft, nontender, nondistended, normoactive bowel sounds. No palpable organomegaly. MUSCULOSKELETAL: No joint swelling or deformity. EXTREMITIES: No cyanosis, clubbing, or pedal edema. NEUROLOGICAL: Gross neurological examination did not reveal any focal deficits. SKIN: No rashes. Assessment and plan -Influenza A: Patient is still tired was asked to rest at home. Patient will be discharged today patient will be discharged on Tamiflu -COPD with mild acute exacerbation patient did receive steroids significant improvement in respiratory status not requiring any oxygen at this time patient is at baseline further continuation of systemic steroids only worsen his blood sugars will not require any systemic steroids patient will continue his inhaled steroids. Patient will be discharged on Tessalon Perles -Coronary artery disease and CABG in the past next and-his heart failure chronic diastolic dysfunction with preserved ejection fraction not in acute exacerbation patient will continue his home dose of Lasix next -hypertension -hyperlipidemia -Proximal atrial fibrillation history: Patient is presently sinus rhythm on Coumadin with INR of 2 -Gases patient reflux disease -Sleep apnea Patient will be discharged to follow up with primary care physician as an outpatientw Past Medical History Past Medical History: Atrial Fibrillation, Coronary Artery Disease (CAD), Chest Pain / Angina, Heart Failure, GERD/Reflux, Hyperlipidemia, Hypertension, Pneumonia, Sleep Apnea/CPAP/BIPAP Additional Past Medical History / Comment(s): DIVERTICULITIS. ALEISHA with Cpap use History of Any Multi-Drug Resistant Organisms: None Reported Past Surgical History: Appendectomy, Coronary Bypass/CABG, Heart Catheterization With Stent Additional Past Surgical History / Comment(s): 2017 PCI with stent, 2017 CABG 2 vessel with mitral valve replacement, cardioversion x 3, DYLAN x2, EGD, colonoscopy, stress test done Past Anesthesia/Blood Transfusion Reactions: No Reported Reaction Date of Last Stent Placement:: 01/22/18 Past Psychological History: No Psychological Hx Reported Smoking Status: Former smoker Past Alcohol Use History: None Reported, Occasional Past Drug Use History: None Reported - Past Family History Father Family Medical History: Congestive Heart Failure (CHF) Additional Family Medical History / Comment(s): Father of CHF at the age of 68yrs. Mother Family Medical History: No Reported History Additional Family Medical History / Comment(s): Mother at the age of 62 or 63 yrs from myasthenia gravis. Brother(s) Family Medical History: Coronary Artery Disease (CAD) Additional Family Medical History / Comment(s): ONE BROTHER HAD CABG Sister(s) Family Medical History: Coronary Artery Disease (CAD) Additional Family Medical History / Comment(s): ONE SISTER HAS HEART STENTS. ONE SISTER HAS HAD CABG Medications and Allergies Home Medications Medication Instructions Recorded Confirmed Type Multivitamin [Men's Multi-Vitamin] 1 tab PO DAILY 01/22/14 06/27/23 History Magnesium Oxide [Mag-Ox] 500 mg PO DAILY 05/20/19 06/27/23 History Sertraline [Zoloft] 50 mg PO DAILY 05/20/19 06/27/23 History Pantoprazole [Protonix] 40 mg PO DAILY 11/08/20 06/27/23 History Potassium Chloride ER [K-Dur 10] 10 meq PO DAILY 11/23/21 06/27/23 History Aspirin EC [Ecotrin Low Dose] 81 mg PO DAILY 07/30/22 06/27/23 History Atorvastatin [Lipitor] 40 mg PO HS 07/30/22 06/27/23 History Losartan [Cozaar] 75 mg PO HS@2100 07/30/22 06/27/23 History Metoprolol Tartrate [Lopressor] 25 mg PO BID@0900,2100 07/30/22 06/27/23 History Spironolactone [Aldactone] 25 mg PO DAILY 07/30/22 06/27/23 History Warfarin [Coumadin] 7.5 mg PO SUTUTHSA 07/30/22 06/27/23 History Empagliflozin [Jardiance] 25 mg PO DAILY 12/09/22 06/27/23 History Fluticasone/Umeclidin/Vilanter 1 puff INHALATION RT-DAILY 12/09/22 06/27/23 History [Trelegy Ellipta 100-62.5-25] Insulin Glargine,Hum.rec.anlog 20 units SQ DAILY 12/09/22 06/27/23 History [Lantus Solostar Pen] Isosorbide Mononitrate ER [Imdur] 30 mg PO DAILY 12/09/22 06/27/23 History Ranolazine [Ranexa] 500 mg PO BID@0900,2100 12/09/22 06/27/23 History metFORMIN HCL [Glucophage] 500 mg PO BID@0900,1700 12/09/22 06/27/23 History ALPRAZolam [Xanax] 0.5 mg PO TID PRN 06/27/23 06/27/23 History Benzonatate [Tessalon Perles] 200 mg PO TID #20 cap 06/27/23 Rx Furosemide [Lasix] 40 mg PO TID 06/27/23 06/27/23 History Oseltamivir [Tamiflu] 75 mg PO Q12HR #10 cap 06/27/23 Rx Warfarin [Coumadin] 10 mg PO MOWEFR 06/27/23 06/27/23 History Allergies Allergy/AdvReac Type Severity Reaction Status Date / Time Penicillins Allergy Unknown Verified 06/27/23 09:19 Childhood Physical Exam Vitals: Vital Signs Temp Pulse Pulse Resp BP BP Pulse Ox 06/27/23 08:45 96 18 137/77 94 L 06/27/23 08:22 92 06/27/23 08:15 86 18 97 06/27/23 03:23 90 20 144/80 94 L 06/27/23 00:17 88 20 132/74 94 L 06/26/23 22:43 88 06/26/23 22:32 85 06/26/23 22:25 84 18 148/80 96 06/26/23 21:36 84 20 133/73 96 06/26/23 21:14 80 06/26/23 21:11 85 16 145/80 95 06/26/23 21:03 79 06/26/23 18:06 97.5 F L 97 18 140/78 96 Intake and Output 06/26/23 06/27/23 06/27/23 22:59 06:59 14:59 Other: Weight 122.47 kg Results CBC & Chem 7: 06/26/23 18:26 06/26/23 18:26 Labs: Abnormal Lab Results - Last 24 Hours (Table) 06/26/23 06/26/23 06/27/23 Range/Units 18:26 18:26 04:20 PT 18.9 H (10.0-12.5) sec INR 1.9 H (<1.2) APTT 32.5 H (22.0-30.0) sec Sodium 135 L (137-145) mmol/L Carbon Dioxide 20 L (22-30) mmol/L Glucose 164 H (74-99) mg/dL Influenza Type A (PCR) Detected A (Not Detectd) 06/27/23 Range/Units 09:47 PT 19.9 H (10.0-12.5) sec INR 2.0 H (<1.2) APTT (22.0-30.0) sec Sodium (137-145) mmol/L Carbon Dioxide (22-30) mmol/L Glucose (74-99) mg/dL Influenza Type A (PCR) (Not Detectd)
--- NOTE | 2023-06-27 11:01 | P.DS ---
Providers Date of admission: 06/26/23 23:13 Attending physician: Jose R Shaw Consults: 06/26/23 23:33 Consult Physician Routine Consulting Provider: [facility] Consult Reason/Comments: chest pain Do you want consulting provider notified?: Yes, Notify in am Primary care physician: Chandler Valderrama [facility] Course: Patient is a 58-year-old male came in with the complaints of worsening shortness of breath and persistent nonproductive cough. Patient is found to have influenza A. Patient doesn't have any pneumonia at this time patient is not wheezing patient does have COPD quit smoking many years ago patient received systemic steroids at this time patient does have history of diabetes mellitus. Patient will not require any systemic steroids patient does have extensive cardiac and pulmonary history. Patient denied any chest pain at this time. Patient had 3 sets of troponins which are negative patient's EKG did not show any acute ST-T wave changes. Patient will be discharged today to follow up with primary care physician as an outpatient patient will be discharged on Tamiflu. REVIEW OF SYSTEMS: CONSTITUTIONAL: No fever, HEENT: No recent visual problems or hearing problems. Denied any sore throat. CARDIOVASCULAR: No chest pain, orthopnea, PND, no palpitations, no syncope. PULMONARY: no hemoptysis. GASTROINTESTINAL: No diarrhea, no nausea, no vomiting, no abdominal pain. NEUROLOGICAL: No headaches, no weakness, no numbness. HEMATOLOGICAL: Denies any bleeding or petechiae. GENITOURINARY: Denies any burning micturition, frequency, or urgency. MUSCULOSKELETAL/RHEUMATOLOGICAL: Denies any joint pain, swelling, or any muscle pain. ENDOCRINE: Denies any polyuria or polydipsia. The rest of the 14-point review of systems is negative. PHYSICAL EXAMINATION: GENERAL: The patient is alert and oriented x3, not in any acute distress. Well developed, well nourished. HEENT: Pupils are round and equally reacting to light. EOMI. No scleral icterus. No conjunctival pallor. Normocephalic, atraumatic. No pharyngeal erythema. No thyromegaly. CARDIOVASCULAR: S1 and S2 present. No murmurs, rubs, or gallops. PULMONARY: Chest is clear to auscultation, no wheezing . Mild crackles in the bases ABDOMEN: Soft, nontender, nondistended, normoactive bowel sounds. No palpable organomegaly. MUSCULOSKELETAL: No joint swelling or deformity. EXTREMITIES: No cyanosis, clubbing, or pedal edema. NEUROLOGICAL: Gross neurological examination did not reveal any focal deficits. SKIN: No rashes. Assessment and plan -Influenza A: Patient is still tired was asked to rest at home. Patient will be discharged today patient will be discharged on Tamiflu -COPD with mild acute exacerbation patient did receive steroids significant improvement in respiratory status not requiring any oxygen at this time patient is at baseline further continuation of systemic steroids only worsen his blood sugars will not require any systemic steroids patient will continue his inhaled steroids. Patient will be discharged on Tessalon Perles -Coronary artery disease and CABG in the past next and-his heart failure chronic diastolic dysfunction with preserved ejection fraction not in acute exacerbation patient will continue his home dose of Lasix next -hypertension -hyperlipidemia -Proximal atrial fibrillation history: Patient is presently sinus rhythm on Coumadin with INR of 2 -Gases patient reflux disease -Sleep apnea Patient will be discharged to follow up with primary care physician as an outpatientw Patient Condition at Discharge: Fair Plan - Discharge Summary New Discharge Prescriptions: New Benzonatate [Tessalon Perles] 200 mg PO TID #20 cap Oseltamivir [Tamiflu] 75 mg PO Q12HR #10 cap Continue Multivitamin [Men's Multi-Vitamin] 1 tab PO DAILY Sertraline [Zoloft] 50 mg PO DAILY Magnesium Oxide [Mag-Ox] 500 mg PO DAILY Pantoprazole [Protonix] 40 mg PO DAILY Losartan [Cozaar] 75 mg PO HS@2100 Aspirin EC [Ecotrin Low Dose] 81 mg PO DAILY Insulin Glargine,Hum.rec.anlog [Lantus Solostar Pen] 20 units SQ DAILY Isosorbide Mononitrate ER [Imdur] 30 mg PO DAILY ALPRAZolam [Xanax] 0.5 mg PO TID PRN PRN Reason: Anxiety Warfarin [Coumadin] 10 mg PO MOWEFR Potassium Chloride ER [K-Dur 10] 10 meq PO DAILY Warfarin [Coumadin] 7.5 mg PO SUTUTHSA Spironolactone [Aldactone] 25 mg PO DAILY Atorvastatin [Lipitor] 40 mg PO HS Metoprolol Tartrate [Lopressor] 25 mg PO BID@0900,2100 Empagliflozin [Jardiance] 25 mg PO DAILY Fluticasone/Umeclidin/Vilanter [Trelegy Ellipta 100-62.5-25] 1 puff INHALATION RT-DAILY metFORMIN HCL [Glucophage] 500 mg PO BID@0900,1700 Ranolazine [Ranexa] 500 mg PO BID@899,2099 Furosemide [Lasix] 40 mg PO TID Discharge Medication List Multivitamin [Men's Multi-Vitamin] 1 tab PO DAILY 01/22/14 [History] Magnesium Oxide [Mag-Ox] 500 mg PO DAILY 05/20/19 [History] Sertraline [Zoloft] 50 mg PO DAILY 05/20/19 [History] Pantoprazole [Protonix] 40 mg PO DAILY 11/08/20 [History] Potassium Chloride ER [K-Dur 10] 10 meq PO DAILY 11/23/21 [History] Aspirin EC [Ecotrin Low Dose] 81 mg PO DAILY 07/30/22 [History] Atorvastatin [Lipitor] 40 mg PO HS 07/30/22 [History] Losartan [Cozaar] 75 mg PO HS@209907/30/22 [History] Metoprolol Tartrate [Lopressor] 25 mg PO BID@899,209907/30/22 [History] Spironolactone [Aldactone] 25 mg PO DAILY 07/30/22 [History] Warfarin [Coumadin] 7.5 mg PO SUTUTHSA 07/30/22 [History] Empagliflozin [Jardiance] 25 mg PO DAILY 12/09/22 [History] Fluticasone/Umeclidin/Vilanter [Trelegy Ellipta 100-62.5-25] 1 puff INHALATION RT-DAILY 12/09/22 [History] Insulin Glargine,Hum.rec.anlog [Lantus Solostar Pen] 20 units SQ DAILY 12/09/22 [History] Isosorbide Mononitrate ER [Imdur] 30 mg PO DAILY 12/09/22 [History] Ranolazine [Ranexa] 500 mg PO BID@00,209912/09/22 [History] metFORMIN HCL [Glucophage] 500 mg PO BID@0900,1700 12/09/22 [History] ALPRAZolam [Xanax] 0.5 mg PO TID PRN 06/27/23 [History] Benzonatate [Tessalon Perles] 200 mg PO TID #20 cap 06/27/23 [Rx] Furosemide [Lasix] 40 mg PO TID 06/27/23 [History] Oseltamivir [Tamiflu] 75 mg PO Q12HR #10 cap 06/27/23 [Rx] Warfarin [Coumadin] 10 mg PO MOWEFR 06/27/23 [History] Follow up Appointment(s)/Referral(s): Chandler Valderrama MD [Primary Care Provider] - 3 Days Discharge Disposition: HOME SELF-CARE
[2023-06-27] MEDS ORDERED: WARFARIN 10 MG TAB PO SCH (17:00)
[2023-06-27] MEDS ORDERED: ATORVASTATIN 40 MG TAB PO SCH (21:00)
[2023-06-27] MEDS ORDERED: LOSARTAN 25 MG TAB PO SCH (21:00)
[2023-06-28] MEDS ORDERED: WARFARIN 7.5 MG TAB PO SCH (17:00)
== END 2023-06-27 12:45 | disposition home or self-care (01) ==
LOC: EC 18:01 → 6NMEDSUR 23:13 → 1SOBS 06-27 05:22 → 6NMEDSUR 06-27 06:42
PROVIDERS: ADMIT Hospitalist; ATTEND Hospitalist
DX: J10.1 Influenza due to other identified influenza virus with other respiratory manifestations (principal); J44.1 Chronic obstructive pulmonary disease with (acute) exacerbation; I11.0 Hypertensive heart disease with heart failure; I50.32 Chronic diastolic (congestive) heart failure; I48.0 Paroxysmal atrial fibrillation; I25.10 Atherosclerotic heart disease of native coronary artery without angina pectoris; E78.5 Hyperlipidemia, unspecified; E11.9 Type 2 diabetes mellitus without complications; I44.0 Atrioventricular block, first degree; I45.10 Unspecified right bundle-branch block; K21.9 Gastro-esophageal reflux disease without esophagitis; G47.33 Obstructive sleep apnea (adult) (pediatric); R20.2 Paresthesia of skin; R68.84 Jaw pain; K57.90 Diverticulosis of intestine, part unspecified, without perforation or abscess without bleeding; E66.9 Obesity, unspecified; Z68.36 Body mass index [BMI] 36.0-36.9, adult; Z79.01 Long term (current) use of anticoagulants; Z79.82 Long term (current) use of aspirin; Z79.84 Long term (current) use of oral hypoglycemic drugs; Z79.51 Long term (current) use of inhaled steroids; Z79.4 Long term (current) use of insulin; Z79.899 Other long term (current) drug therapy; Z88.0 Allergy status to penicillin; Z87.891 Personal history of nicotine dependence; Z87.01 Personal history of pneumonia (recurrent); Z90.49 Acquired absence of other specified parts of digestive tract; Z95.5 Presence of coronary angioplasty implant and graft; Z95.1 Presence of aortocoronary bypass graft; Z95.2 Presence of prosthetic heart valve; Z98.890 Other specified postprocedural states; Z82.49 Family history of ischemic heart disease and other diseases of the circulatory system; Z82.69 Family history of other diseases of the musculoskeletal system and connective tissue
CPT/HCPCS: 96376; 96374; 96375; 99285; 36415; 94640 ×4; 94760; 93005; 85379; 83880; 80053; 83605; 84484 ×2; 85025; 85610 ×2; 85730; 87636; 71046; G0378 ×3; J2270 ×2; J2930 ×2

== ENCOUNTER 2024-05-26 20:44 | Inpatient (IN) | payer OTHER, MEDICARE ==
[2024-05-26 21:21] LABS: Basophils # (A) 0.1 k/uL (0-0.2); Basophils % (A) 1 %; Eosinophils # (A) 0.4 k/uL (0-0.7); Eosinophils % (A) 3 %; HCT 46.7 % (39.0-53.0); HGB 15.3 gm/dL (13.0-17.5); Lymphocytes % (A) 18 %; MCH 31.6 pg (25.0-35.0); MCHC 32.8 g/dL (31.0-37.0); MCV 96.3 fL (80.0-100.0); Mean Platelet Volume 7.9; Monocytes # (A) 0.6 k/uL (0-1.0); Monocytes % (A) 6 %; Neutrophils # (A) 7.7 k/uL (1.3-7.7); Neutrophils % (A) 69 %; Platelet Count 210 k/uL (150-450); RBC 4.85 m/uL (4.30-5.90); RDW 13.2 % (11.5-15.5); WBC 11.1 k/uL (3.8-10.6)
--- NOTE | 2024-05-26 21:29 | ED ---
Weakness HPI - General Chief complaint: Fall Stated complaint: Chest pain, fall Time Seen by Provider: 05/26/24 21:26 Source: EMS, RN notes reviewed, old records reviewed Mode of arrival: EMS Limitations: no limitations - History of Present Illness Initial comments: This is a 59-year-old male to the ER for evaluation today of a fall fall about 10 hours prior to arrival with body aches pains generalized bodyaches and pains which are persistent here in the ER. Patient's pain is persistent here in the ER without any significant signs of trauma -: hour(s) (10) Location: generalized Severity: moderate Severity scale (1-10): 7 Quality: tingling, aching Consistency: constant Improves with: none Worsens with: none Context: history of similar Associated Symptoms: chest pain, myalgias - Related Data Home Medications Medication Instructions Recorded Confirmed Multivitamin [Men's Multi-Vitamin] 1 tab PO DAILY 01/22/14 05/27/24 Sertraline [Zoloft] 50 mg PO DAILY 05/20/19 05/27/24 Aspirin EC [Ecotrin Low Dose] 81 mg PO DAILY 07/30/22 05/27/24 Atorvastatin [Lipitor] 40 mg PO HS 07/30/22 05/27/24 Spironolactone [Aldactone] 25 mg PO DAILY 07/30/22 05/27/24 Warfarin [Coumadin] 7.5 mg PO SUTUTHSA@1700 07/30/22 05/27/24 Empagliflozin [Jardiance] 25 mg PO DAILY 12/09/22 05/27/24 Insulin Glargine,Hum.rec.anlog 20 units SQ DAILY 12/09/22 05/27/24 [Lantus Solostar Pen] Ranolazine [Ranexa] 500 mg PO BID 12/09/22 05/27/24 metFORMIN HCL [Glucophage] 500 mg PO BID@0900,1700 12/09/22 05/27/24 Warfarin [Coumadin] 10 mg PO MOWEFR@1700 06/27/23 05/27/24 Famotidine [Pepcid] 40 mg PO HS 05/27/24 05/27/24 Magnesium Oxide [Magnesium] 500 mg PO DAILY 05/27/24 05/27/24 Tiotropium Br/Olodaterol HCl 2 puff INHALATION RT-DAILY 05/27/24 05/27/24 [Stiolto Respimat Inhaler (60)] Umeclidinium Brm/Vilanterol Tr 1 puff INHALATION RT-DAILY 05/27/24 05/27/24 [Anoro Ellipta 62.5-25 Mcg INH] Previous Rx's Medication Instructions Recorded Bumetanide [BUMEX] 1 mg PO DAILY #30 tab 05/31/24 Losartan [Cozaar] 25 mg PO HS 30 Days #30 tab 05/31/24 Metoprolol Tartrate [Lopressor] 50 mg PO BID #60 tab 05/31/24 Allergies Allergy/AdvReac Type Severity Reaction Status Date / Time Penicillins Allergy Unknown Verified 05/27/24 07:30 Childhood Review of Systems ROS Statement: Those systems with pertinent positive or pertinent negative responses have been documented in the HPI. ROS Other: All systems not noted in ROS Statement are negative. Past Medical History Past Medical History: Atrial Fibrillation, Coronary Artery Disease (CAD), Chest Pain / Angina, Heart Failure, GERD/Reflux, Hyperlipidemia, Hypertension, Pneumonia, Sleep Apnea/CPAP/BIPAP Additional Past Medical History / Comment(s): DIVERTICULITIS. ALEISHA with Cpap use History of Any Multi-Drug Resistant Organisms: None Reported Past Surgical History: Appendectomy, Coronary Bypass/CABG, Heart Catheterization With Stent Additional Past Surgical History / Comment(s): 2017 PCI with stent, 2018 CABG 2 vessel with mitral valve replacement, cardioversion x 3, DYLAN x2, EGD, colonoscopy, stress test done Past Anesthesia/Blood Transfusion Reactions: No Reported Reaction Date of Last Stent Placement:: 01/22/18 Past Psychological History: No Psychological Hx Reported Smoking Status: Former smoker Past Alcohol Use History: None Reported, Occasional Past Drug Use History: None Reported - Past Family History Father Family Medical History: Congestive Heart Failure (CHF) Additional Family Medical History / Comment(s): Father of CHF at the age of 68yrs. Mother Family Medical History: No Reported History Additional Family Medical History / Comment(s): Mother at the age of 62 or 63 yrs from myasthenia gravis. Brother(s) Family Medical History: Coronary Artery Disease (CAD) Additional Family Medical History / Comment(s): ONE BROTHER HAD CABG Sister(s) Family Medical History: Coronary Artery Disease (CAD) Additional Family Medical History / Comment(s): ONE SISTER HAS HEART STENTS. ONE SISTER HAS HAD CABG General Exam Limitations: no limitations General appearance: alert, in no apparent distress Head exam: Present: atraumatic, normocephalic, normal inspection Eye exam: Present: normal appearance, PERRL, EOMI. Absent: scleral icterus, conjunctival injection, periorbital swelling ENT exam: Present: normal exam, mucous membranes moist Neck exam: Present: normal inspection. Absent: tenderness, meningismus, lymp hadenopathy Respiratory exam: Present: normal lung sounds bilaterally. Absent: respiratory distress, wheezes, rales, rhonchi, stridor Cardiovascular Exam: Present: regular rate, normal rhythm, normal heart sounds. Absent: systolic murmur, diastolic murmur, rubs, gallop, clicks GI/Abdominal exam: Present: soft, normal bowel sounds. Absent: distended, tenderness, guarding, rebound, rigid Extremities exam: Present: normal inspection, full ROM, normal capillary refill. Absent: tenderness, pedal edema, joint swelling, calf tenderness Back exam: Present: normal inspection Neurological exam: Present: alert, oriented X3, CN II-XII intact Psychiatric exam: Present: normal affect, normal mood Skin exam: Present: warm, dry, intact, normal color. Absent: rash Course Vital Signs 05/26/24 05/26/24 05/26/24 20:46 22:20 22:21 Temperature 98.3 F Pulse Rate 89 88 Pulse Rate [ Manager Intelligence ] Respiratory 18 18 Rate Blood Pressure 166/96 146/92 Blood Pressure [Right Arm] O2 Sat by Pulse 95 88 L 91 L Oximetry 05/26/24 05/26/24 05/27/24 23:00 23:53 00:00 Temperature Pulse Rate 85 80 81 Pulse Rate [ Manager Intelligence ] Respiratory 18 18 14 Rate Blood Pressure 122/69 132/80 132/80 Blood Pressure [Right Arm] O2 Sat by Pulse 91 L 95 93 L Oximetry 05/27/24 05/27/24 05/27/24 00:38 01:00 02:00 Temperature Pulse Rate 75 Pulse Rate [ Manager Intelligence ] Respiratory 14 Rate Blood Pressure 142/87 127/73 Blood Pressure [Right Arm] O2 Sat by Pulse 92 L 95 Oximetry 05/27/24 05/27/24 05/27/24 03:00 04:00 05:25 Temperature 98.0 F Pulse Rate 73 Pulse Rate [ 78 Manager Intelligence ] Respiratory 14 Rate Blood Pressure 127/73 Blood Pressure 139/90 [Right Arm] O2 Sat by Pulse 97 Oximetry 05/27/24 05/27/24 05/27/24 05:35 08:04 08:06 Temperature Pulse Rate 81 84 84 Pulse Rate [ Manager Intelligence ] Respiratory 18 14 Rate Blood Pressure 124/82 134/90 Blood Pressure [Right Arm] O2 Sat by Pulse 96 96 Oximetry 05/27/24 05/27/24 05/27/24 08:11 08:14 08:21 Temperature Pulse Rate 82 90 Pulse Rate [ Manager Intelligence ] Respiratory Rate Blood Pressure Blood Pressure [Right Arm] O2 Sat by Pulse 100 Oximetry 05/27/24 05/27/24 05/27/24 09:00 10:00 11:00 Temperature Pulse Rate 89 91 86 Pulse Rate [ Manager Intelligence ] Respiratory 15 16 13 Rate Blood Pressure 124/72 120/69 121/71 Blood Pressure [Right Arm] O2 Sat by Pulse 94 L 88 L 80 L Oximetry 05/27/24 05/27/24 05/27/24 12:08 12:16 15:09 Temperature Pulse Rate 87 78 86 Pulse Rate [ Manager Intelligence ] Respiratory 18 Rate Blood Pressure 115/73 Blood Pressure [Right Arm] O2 Sat by Pulse 96 Oximetry - Reevaluation(s) Reevaluation #1: 05/26/24 23:23 Medical records reviewed Reevaluation #2: 05/26/24 23:23 Patient's pain is improved here in the ER Reevaluation #3: 05/26/24 23:23 Patient informed of results and questions answered Reevaluation #4: Was pt. sent in by a medical professional or institution (, PA, HAND LOOM WEAVER, urgent care, hospital, or alf...) When possible be specific @ -no Did you speak to anyone other than the patient for history (EMS, parent, family, police, friend...)? What history was obtained from this source @ -no Did you review nursing and triage notes (agree or disagree)? Why? @ -agree Are old charts reviewed (outside hosp., previous admission, EMS record, old EKG, old radiological studies, urgent care reports/EKG's, alf records)? Report findings @ -yes Differential Diagnosis (chest pain, altered mental status, abdominal pain women, abdominal pain men, vaginal bleeding, weakness, fever, dyspnea, syncope, headache, dizziness, GI bleed, back pain, seizure, CVA, palpatations, mental health, musculoskeletal)? @ -prior EKG interpreted by me (3pts min.). @ -yes X-rays interpreted by me (1pt min.). @ -yes negative for acute disease CT interpreted by me (1pt min.). @ -no U/S interpreted by me (1pt. min.). @ -no What testing was considered but not performed or refused? (CT, X-rays, U/S, labs)? Why? @ -none What meds were considered but not given or refused? Why? @ -none Did you discuss the management of the patient with other professionals (professionals i.e. , PA, HAND LOOM WEAVER, lab, RT, psych nurse, social media campaign manager, security flex utility officer, teacher, postal delivery officer, casey saw operator)? Give summary @ -no Was smoking cessation discussed for >3mins.? @ -no Was critical care preformed (if so, how long)? @ -yes31 Were there social determinants of health that impacted care today? How? (Homelessness, low income, unemployed, alcoholism, drug addiction, transportation, low edu. Level, literacy, decrease access to med. care, residential, rehab)? @ -none Was there de-escalation of care discussed even if they declined (Discuss DNR or withdrawal of care, Hospice)? DNR status @ -no What co-morbidities impacted this encounter? (DM, HTN, Smoking, COPD, CAD, Cancer, CVA, ARF, Chemo, Hep., AIDS, mental health diagnosis, sleep apnea, morbid obesity)? @ -none Was patient admitted / discharged? Hospital course, mention meds given and route, prescriptions, significant lab abnormalities, going to OR and other pertinent info. @ - 59 male for syncopal event near syncopal event chest pain CHF COPD hypoxia. Patient will admit for trending of troponin and chest pain control Undiagnosed new problem with uncertain prognosis? @ -no Drug Therapy requiring intensive monitoring for toxicity (Heparin, Nitro, Insulin, Cardizem)? @ -no Were any procedures done? @ -no Diagnosis/symptom? @ -syncope non-STEMI hypoxia COPD Acute, or Chronic, or Acute on Chronic? @ -Acute Uncomplicated (without systemic symptoms) or Complicated (systemic symptoms)? @ -Complicated Side effects of treatment? @ -no Exacerbation, Progression, or Severe Exacerbation? @ -exacerbation Poses a threat to life or bodily function? How? (Chest pain, [place], [place], pneumonia, PE, COPD, DKA, ARF, appy, cholecystitis, CVA, Diverticulitis, Homicidal, Suicidal, threat to staff... and all critical care pts) @ -yes with syncope Reevaluation #5: Differential Chest Pain: Stable Angina, Unstable Angina, STEMI, NSTEMI Aortic Dissection, Pneumothorax, Musculoskeletal, Esophageal Spasm GERD, Cholecystitis, Pancreatitis, Zoster, this is not meant to be an all-inclusive list. - Consultations Consultation #1: Spoke with Dr. Valderrama who agrees to admit this patient EKG Findings - EKG Comments: EKG Findings:: EKG is sinus 84 TX 231 QRS 130 QTc 446 - EKG Results: EKG: interpreted by [facility] Medical Decision Making - Medical Decision Making 59 male for syncopal event near syncopal event chest pain CHF COPD hypoxia. Patient will admit for trending of troponin and chest pain control - Lab Data Result diagrams: 05/29/24 06:11 05/29/24 06:11 Lab Results 05/26/24 05/26/24 05/26/24 Range/Units 21:11 21:11 21:11 WBC 11.1 H (3.8-10.6) k/uL RBC 4.85 (4.30-5.90) m/uL Hgb 15.3 (13.0-17.5) gm/dL Hct 46.7 (39.0-53.0) % MCV 96.3 (80.0-100.0) fL MCH 31.6 (25.0-35.0) pg MCHC 32.8 (31.0-37.0) g/dL RDW 13.2 (11.5-15.5) % Plt Count 210 (150-450) k/uL MPV 7.9 Neutrophils % 69 % Lymphocytes % 18 % Monocytes % 6 % Eosinophils % 3 % Basophils % 1 % Neutrophils # 7.7 (1.3-7.7) k/uL Lymphocytes # 2.0 (1.0-4.8) k/uL Monocytes # 0.6 (0-1.0) k/uL Eosinophils # 0.4 (0-0.7) k/uL Basophils # 0.1 (0-0.2) k/uL Sodium 137 (137-145) mmol/L Potassium 3.5 (3.5-5.1) mmol/L Chloride 99 (98-107) mmol/L Carbon Dioxide 23 (22-30) mmol/L Anion Gap 15 mmol/L BUN 10 (9-20) mg/dL Creatinine 0.75 (0.66-1.25) mg/dL Est GFR (CKD-EPI)AfAm >90 (>60 ml/min/1.73 sqM) Est GFR (CKD-EPI)NonAf >90 (>60 ml/min/1.73 sqM) Glucose 100 H (74-99) mg/dL Lactic Ac Sepsis Rflx Plasma Lactic Acid Wilfrid 2.9 H* (0.7-2.0) mmol/L Calcium 9.3 (8.4-10.2) mg/dL Magnesium 1.9 (1.6-2.3) mg/dL Total Bilirubin 1.3 (0.2-1.3) mg/dL AST 31 (17-59) U/L ALT 29 (4-49) U/L Alkaline Phosphatase 82 (38-126) U/L Creatine Kinase (55-170) U/L Troponin I (0.000-0.034) ng/mL Total Protein 7.1 (6.3-8.2) g/dL Albumin 4.5 (3.5-5.0) g/dL Serum Alcohol 135 mg/dL 05/26/24 05/26/24 05/26/24 Range/Units 21:11 21:11 21:46 WBC (3.8-10.6) k/uL RBC (4.30-5.90) m/uL Hgb (13.0-17.5) gm/dL Hct (39.0-53.0) % MCV (80.0-100.0) fL MCH (25.0-35.0) pg MCHC (31.0-37.0) g/dL RDW (11.5-15.5) % Plt Count (150-450) k/uL MPV Neutrophils % % Lymphocytes % % Monocytes % % Eosinophils % % Basophils % % Neutrophils # (1.3-7.7) k/uL Lymphocytes # (1.0-4.8) k/uL Monocytes # (0-1.0) k/uL Eosinophils # (0-0.7) k/uL Basophils # (0-0.2) k/uL Sodium (137-145) mmol/L Potassium (3.5-5.1) mmol/L Chloride (98-107) mmol/L Carbon Dioxide (22-30) mmol/L Anion Gap mmol/L BUN (9-20) mg/dL Creatinine (0.66-1.25) mg/dL Est GFR (CKD-EPI)AfAm (>60 ml/min/1.73 sqM) Est GFR (CKD-EPI)NonAf (>60 ml/min/1.73 sqM) Glucose (74-99) mg/dL Lactic Ac Sepsis Rflx Y Plasma Lactic Acid Wilfrid (0.7-2.0) mmol/L Calcium (8.4-10.2) mg/dL Magnesium (1.6-2.3) mg/dL Total Bilirubin (0.2-1.3) mg/dL AST (17-59) U/L ALT (4-49) U/L Alkaline Phosphatase (38-126) U/L Creatine Kinase 180 H (55-170) U/L Troponin I 0.025 (0.000-0.034) ng/mL Total Protein (6.3-8.2) g/dL Albumin (3.5-5.0) g/dL Serum Alcohol mg/dL 05/26/24 05/27/24 Range/Units 23:53 00:23 WBC (3.8-10.6) k/uL RBC (4.30-5.90) m/uL Hgb (13.0-17.5) gm/dL Hct (39.0-53.0) % MCV (80.0-100.0) fL MCH (25.0-35.0) pg MCHC (31.0-37.0) g/dL RDW (11.5-15.5) % Plt Count (150-450) k/uL MPV Neutrophils % % Lymphocytes % % Monocytes % % Eosinophils % % Basophils % % Neutrophils # (1.3-7.7) k/uL Lymphocytes # (1.0-4.8) k/uL Monocytes # (0-1.0) k/uL Eosinophils # (0-0.7) k/uL Basophils # (0-0.2) k/uL Sodium (137-145) mmol/L Potassium (3.5-5.1) mmol/L Chloride (98-107) mmol/L Carbon Dioxide (22-30) mmol/L Anion Gap mmol/L BUN (9-20) mg/dL Creatinine (0.66-1.25) mg/dL Est GFR (CKD-EPI)AfAm (>60 ml/min/1.73 sqM) Est GFR (CKD-EPI)NonAf (>60 ml/min/1.73 sqM) Glucose (74-99) mg/dL Lactic Ac Sepsis Rflx Y Plasma Lactic Acid Wilfrid 2.1 H* (0.7-2.0) mmol/L Calcium (8.4-10.2) mg/dL Magnesium (1.6-2.3) mg/dL Total Bilirubin (0.2-1.3) mg/dL AST (17-59) U/L ALT (4-49) U/L Alkaline Phosphatase (38-126) U/L Creatine Kinase (55-170) U/L Troponin I (0.000-0.034) ng/mL Total Protein (6.3-8.2) g/dL Albumin (3.5-5.0) g/dL Serum Alcohol mg/dL - Radiology Data Radiology results: report reviewed (Chest x-ray is n positive for CHF ), image reviewed Critical Care Time Critical Care Time: Yes Total Critical Care Time: 31 Disposition Clinical Impression: Fall, Pre-syncope, COPD (chronic obstructive pulmonary disease), Alcohol abuse, CAD (coronary artery disease), CHF (congestive heart failure), Chest pain Disposition: ADMITTED IP TO THIS HOSP Condition: Good Is patient prescribed a controlled substance at d/c from ED?: No Time of Disposition: 00:45
[2024-05-26 21:41] LABS: ALT 29 U/L (4-49); AST 31 U/L (17-59); African American GFR (CKD) >90 (>60 ml/min/1.73 sqM); Albumin 4.5 g/dL (3.5-5.0); Alkaline Phosphatase 82 U/L (38-126); Anion Gap 15 mmol/L; Blood Urea Nitrogen 10 mg/dL (9-20); Calcium 9.3 mg/dL (8.4-10.2); Carbon Dioxide 23 mmol/L (22-30); Chloride 99 mmol/L (98-107); Glucose 100 mg/dL (74-99); Magnesium 1.9 mg/dL (1.6-2.3); Non-African American GFR(CKD) >90 (>60 ml/min/1.73 sqM); Potassium 3.5 mmol/L (3.5-5.1); Sodium 137 mmol/L (137-145); Total Bilirubin 1.3 mg/dL (0.2-1.3); Total Protein 7.1 g/dL (6.3-8.2)
--- NOTE | 2024-05-26 21:43 | XR ---
EXAMINATION TYPE: XR chest 2V DATE OF EXAM: 05/26/2024 9:29 PM CLINICAL INDICATION: Male, 59 years old with history of chest pain; COMPARISON: Chest radiographs from 06/26/2023 TECHNIQUE: XR chest 2V Frontal view of the chest. FINDINGS: Lungs/Pleura: There is no evidence of pleural effusion, focal consolidation, or pneumothorax. Pulmonary vascularity: Unremarkable. Heart/mediastinum: Cardiomediastinal silhouette is enlarged. Postvalve repair changes. Left atrial a ppendage occlusion device is present. Musculoskeletal: No acute osseous pathology. Midline sternotomy wires are noted. Other findings: None IMPRESSION: Cardiomegaly and mild pulmonary vascular congestion. Correlate with BNP for congestive heart failure. [facility], , 05/26/2024 9:41 PM
[2024-05-26 21:47] LABS: Alcohol 135 mg/dL
[2024-05-26] MEDS: SODIUM CHLORIDE 0.9% 500 ML 500 ML IV STA (21:57)
[2024-05-26] MEDS: HYDROmorphone 1 MG/ML 1 ML SYRINGE IVP STA ×2 (22:03→23:59)
[2024-05-26] MEDS: KETOROLAC 15 MG/ML 1 ML VIAL IVP STA (22:03)
[2024-05-26] MEDS: SODIUM CHLORIDE 0.9% 1,000 ML IV STA (23:37)
[2024-05-26] MEDS: SODIUM CHLORIDE 0.9% 1,000 ML IV SCH (23:42)
[2024-05-27] MEDS ORDERED: NALOXONE 0.4 MG/ML 1 ML VIAL IV PRN (00:39)
[2024-05-27] MEDS ORDERED: ONDANSETRON 4 MG/2 ML VIAL IVP PRN (00:39)
[2024-05-27] MEDS: methylPREDNISolone SOD SUCCI 125 MG/2 ML VIAL IV STA (02:27)
[2024-05-27] MEDS: HYDROmorphone 1 MG/ML 1 ML SYRINGE IVP PRN (02:27)
[2024-05-27] MEDS: SODIUM CHLORIDE 0.9% 1,000 ML IV SCH (02:29)
[2024-05-27] MEDS: IPRATROPIUM-ALBUTEROL 3 ML NEB INHALATION STA (03:51)
[2024-05-27] MEDS: IPRATROPIUM-ALBUTEROL 3 ML NEB INHALATION SCH (05:25)
--- NOTE | 2024-05-27 06:06 | P.CNPUL ---
History of Present Illness Consult date: 05/27/24 Requesting physician: Stanley Armas Reason for consult: COPD Chief complaint: Fall History of present illness: Patient is 59-year-old male with past medical history significant for COPD, o bstructive sleep apnea with home CPAP machine, mitral valve regurgitation status post replacement, proximal atrial fibrillation, coronary artery disease with previous coronary stents and bypass surgery, high blood pressure, hyperlipidemia, diabetes mellitus type 2, and obesity. Patient does follow in the pulmonary office with Dr. Garcia. His primary care provider is Dr. Valderrama. Patient presents the emergency department last night after a fall. He reportedly fell through his screen door. He states he may have lost consciousness briefly. He was found to be intoxicated. Serum alcohol level 135. He drinks approximately, ten 12 ounce beers per day. No obvious head trauma. Does take Coumadin outpatient. Chief concern is some acute lower back pain. Pain is actually localized off to the left. Does admit some [id number] in his left lower extremity. No saddle anesthesia or bowel or bladder incontinence. We were asked to evaluate the patient as his COPD was felt to be active in the ED. He states that his shortness of breath started after falling. No reports of vomiting or aspiration. He denies recent sick contacts. No URI like symptoms. Denies fever or chills. Endorses occasional cough with minimal yellow sputum production. His left sided chest is sore, which is reproducible with manipulation. Chest x-ray showing cardiomegaly and mild PVC. NT proBNP low. No obvious focal infiltrates or pneumonia. No pleural effusions or pneumothoraces. CBC: WBC count 11.1, hemoglobin 15.3, hematocrit 46.7, platelets 210. CMP: Sodium 137, potassium 3.5, chloride 99, serum bicarb 23, BUN 10, creatinine 0.75, glucose 100. Lactic 2.9 down to 1.1. LFTs unremarkable. Troponin 0.025 and 0.16 respectively. CPK 180. Saline infusing at 130 mL/h. Patient currently being evaluated in the emergency department, room 25. He is on 2 L/min nasal cannula. SpO2 97%. Nontachypneic. Afebrile. No acute respiratory distress.. Review of Systems Constitutional: Denies chills, Denies fever, Denies weight gain, Denies weight loss Ears, nose, mouth and throat: Reports epistaxis, Denies nasal congestion, Denies nasal discharge, Denies post-nasal drip, Denies sinus pressure, Denies sore throat Cardiovascular: Reports dyspnea on exertion, Denies leg edema, Denies orthopnea, Denies palpitations, Denies paroxysmal nocturnal dyspnea Respiratory: Reports cough with sputum, Reports dyspnea, Reports pain on inspiration, Denies hemoptysis, Denies home oxygen, Denies wheezing Gastrointestinal: Denies abdominal pain, Denies change in bowel habits, Denies constipation, Denies diarrhea, Denies nausea, Denies vomiting Genitourinary: Denies dysuria Musculoskeletal: Reports leg numbness/tingling, Reports low back pain, Reports muscle weakness, Reports shooting leg pain, Denies arm numbness/tingling Integumentary: Denies rash Neurological: Denies confusion, Denies headaches, Denies seizures, Denies syncope, Denies visual changes Psychiatric: Denies anxiety, Denies depression Past Medical History Past Medical History: Atrial Fibrillation, Coronary Artery Disease (CAD), Chest Pain / Angina, Heart Failure, GERD/Reflux, Hyperlipidemia, Hypertension, Pneumonia, Sleep Apnea/CPAP/BIPAP Additional Past Medical History / Comment(s): DIVERTICULITIS. ALEISHA with Cpap use History of Any Multi-Drug Resistant Organisms: None Reported Past Surgical History: Appendectomy, Coronary Bypass/CABG, Heart Catheterization With Stent Additional Past Surgical History / Comment(s): 2017 PCI with stent, 2018 CABG 2 vessel with mitral valve replacement, cardioversion x 3, DYLAN x2, EGD, colonoscopy, stress test done Past Anesthesia/Blood Transfusion Reactions: No Reported Reaction Date of Last Stent Placement:: 01/22/18 Past Psychological History: No Psychological Hx Reported Smoking Status: Former smoker Past Alcohol Use History: None Reported, Occasional Past Drug Use History: None Reported - Past Family History Father Family Medical History: Congestive Heart Failure (CHF) Additional Family Medical History / Comment(s): Father of CHF at the age of 68yrs. Mother Family Medical History: No Reported History Additional Family Medical History / Comment(s): Mother at the age of 62 or 63 yrs from myasthenia gravis. Brother(s) Family Medical History: Coronary Artery Disease (CAD) Additional Family Medical History / Comment(s): ONE BROTHER HAD CABG Sister(s) Family Medical History: Coronary Artery Disease (CAD) Additional Family Medical History / Comment(s): ONE SISTER HAS HEART STENTS. ONE SISTER HAS HAD CABG Medications and Allergies Home Medications Medication Instructions Recorded Confirmed Type Multivitamin [Men's Multi-Vitamin] 1 tab PO DAILY 01/22/14 06/27/23 History Magnesium Oxide [Mag-Ox] 500 mg PO DAILY 05/20/19 06/27/23 History Sertraline [Zoloft] 50 mg PO DAILY 05/20/19 06/27/23 History Pantoprazole [Protonix] 40 mg PO DAILY 11/08/20 06/27/23 History Potassium Chloride ER [K-Dur 10] 10 meq PO DAILY 11/23/21 06/27/23 History Aspirin EC [Ecotrin Low Dose] 81 mg PO DAILY 07/30/22 06/27/23 History Atorvastatin [Lipitor] 40 mg PO HS 07/30/22 06/27/23 History Losartan [Cozaar] 75 mg PO HS@2100 07/30/22 06/27/23 History Metoprolol Tartrate [Lopressor] 25 mg PO BID@0900,2100 07/30/22 06/27/23 History Spironolactone [Aldactone] 25 mg PO DAILY 07/30/22 06/27/23 History Warfarin [Coumadin] 7.5 mg PO SUTUTHSA 07/30/22 06/27/23 History Empagliflozin [Jardiance] 25 mg PO DAILY 12/09/22 06/27/23 History Fluticasone/Umeclidin/Vilanter 1 puff INHALATION RT-DAILY 12/09/22 06/27/23 Hist ory [Trelegy Ellipta 100-62.5-25] Insulin Glargine,Hum.rec.anlog 20 units SQ DAILY 12/09/22 06/27/23 History [Lantus Solostar Pen] Isosorbide Mononitrate ER [Imdur] 30 mg PO DAILY 12/09/22 06/27/23 History Ranolazine [Ranexa] 500 mg PO BID@0900,2100 12/09/22 06/27/23 History metFORMIN HCL [Glucophage] 500 mg PO BID@0900,1700 12/09/22 06/27/23 History ALPRAZolam [Xanax] 0.5 mg PO TID PRN 06/27/23 06/27/23 History Benzonatate [Tessalon Perles] 200 mg PO TID #20 cap 06/27/23 Rx Furosemide [Lasix] 40 mg PO TID 06/27/23 06/27/23 History Oseltamivir [Tamiflu] 75 mg PO Q12HR #10 cap 06/27/23 Rx Warfarin [Coumadin] 10 mg PO MOWEFR 06/27/23 06/27/23 History Allergies Allergy/AdvReac Type Severity Reaction Status Date / Time Penicillins Allergy Unknown Verified 06/27/23 09:19 Childhood Physical Exam Vitals: Vital Signs Temp Pulse Resp BP Pulse Ox 05/27/24 00:38 92 L 05/26/24 23:53 80 18 132/80 95 05/26/24 22:21 88 18 91 L 05/26/24 20:46 98.3 F 89 18 166/96 95 Intake and Output 05/26/24 05/26/24 05/27/24 14:59 22:59 06:59 Other: Weight 125.191 kg GENERAL EXAM: Alert, 58-year-old obese white male appearing stated age , comfortable in no apparent distress. HEAD: Normocephalic and atraumatic EYES: Normal reaction of pupils, equal size. NOSE: Clear with pink turbinates. THROAT: No erythema or exudates. NECK: No masses, no JVD. CHEST: No chest wall deformity. LUNGS: Equal air entry with bibasilar inspiratory crackles. No wheezing, rhonchi, or focal dullness. On 2 L/min nasal cannula. No conversational dyspnea or accessory muscle use.. CVS: S1 and S2 normal with no audible murmur, regular rhythm. No extra heart sounds ABDOMEN: No hepatosplenomegaly, active bowel sounds, no guarding or rigidity. SPINE: No scoliosis or deformity SKIN: No rashes CENTRAL NERVOUS SYSTEM: No focal deficits, tone is normal in all 4 extremities. EXTREMITIES: There is no peripheral edema, clubbing, or cyanosis. Peripheral pulses are intact. Technically positive straight leg test on left. No point te nderness. Bilateral lower extremity strength strength graded 4/5. Sensation equal and bilaterally. Patellar DTRs 1+ bilaterally. Results - Laboratory Findings CBC and BMP: 05/26/24 21:11 05/26/24 21:11 Abnormal lab findings: Abnormal Labs 05/26/24 05/26/24 05/26/24 21:11 21:11 21:11 WBC 11.1 H Glucose 100 H Plasma Lactic Acid Wilfrid 2.9 H* Creatine Kinase 05/26/24 05/26/24 21:11 23:53 WBC Glucose Plasma Lactic Acid Wilfrid 2.1 H* Creatine Kinase 180 H - Diagnostic Findings Chest x-ray: image reviewed Assessment and Plan Assessment: Fall Alcohol intoxication serum alcohol level 135 Possible acute COPD exacerbation Acute hypoxemic respiratory failure, possibly secondary to above Moderate chronic obstructive pulmonary disease, with FEV1 67% of predicted, maintained on Stiolto Respimat inhaler Obstructive sleep apnea, maintained on VPAP auto with a minimum pressure of 10 and a maximum pressure of 20 and outpatient basis Coronary artery disease, with previous coronary stents and subsequent coronary artery bypass surgery History of severe mitral valve regurgitation status post mechanical mitral valve replacement 2017, chronically anticoagulated on Coumadin History of paroxysmal atrial fibrillation Benign essential hypertension Hyperlipidemia Diabetes mellitus type 2 History of GERD without esophagitis Obesity with a BMI of 37.4 kg/m Alcoholism, drinks 10, 12 ounce beers per day Ex-smoker Plan: Patient's medications, labs, chest x-ray reviewed Currently on 2 L/min nasal cannula, may wean off as tolerated. COPD felt to be active in the ER, patient already started on a combination of of DuoNebs [id number] and IV Solu-Medrol in the ER. Currently, no respiratory distress or audible wheezing. Will continue for now. Monitor CIWA Alcohol cessation counseling performed Fall precautions Resume home medications once verified, including Coumadin GI prophylaxis: Protonix We will continue to follow, additional recommendations forthcoming I have personally seen and examined the patient, performed the documentation and the assessment and plan as written. Number of minutes spent on the visit:20 Time with Patient: Greater than 30
[2024-05-27] MEDS: methylPREDNISolone SOD SUCCI 125 MG/2 ML VIAL IV SCH (06:39)
[2024-05-27] MEDS: PANTOPRAZOLE 40 MG TABLET PO SCH (06:40)
[2024-05-27 08:11] LABS: INR 2.8 (<1.2); Prothrombin Time 27.3 sec (10.0-12.5)
--- NOTE | 2024-05-27 09:16 | P.HPIM ---
History of Present Illness H&P Date: 05/27/24 This is a 59-year-old male who presented to the emergency department after a fall at home which resulted in acute lower back pain. Patient does have a history of COPD, sleep apnea not atrial fibrillation, and diabetes. Patient reported some shortness of breath after falling and pulmonary has been c onsulted. Troponin elevated in the emergency department, patient does report chest pain and cardiology has been consulted. Patient admits to frequent alcohol use, reportedly drinking 10 beers a day. Alcohol level on admission was 135. He is seen this morning lying on stretcher in the ER. He reports pain in the lower legs, feeling like they are heavy. Further history as noted below. Review of Systems Constitutional: Denies chills, Denies fever Cardiovascular: Reports chest pain, Reports dyspnea on exertion Respiratory: Reports dyspnea, Denies cough Gastrointestinal: Denies abdominal pain, Denies nausea, Denies vomiting Musculoskeletal: Reports leg numbness/tingling, Reports low back pain, Denies arm numbness/tingling Neurological: Denies headaches, Denies weakness Past Medical History Past Medical History: Atrial Fibrillation, Coronary Artery Disease (CAD), Chest Pain / Angina, Heart Failure, GERD/Reflux, Hyperlipidemia, Hypertension, Pneumonia, Sleep Apnea/CPAP/BIPAP Additional Past Medical History / Comment(s): DIVERTICULITIS. ALEISHA with Cpap use History of Any Multi-Drug Resistant Organisms: None Reported Past Surgical History: Appendectomy, Coronary Bypass/CABG, Heart Catheterization With Stent Additional Past Surgical History / Comment(s): 2018 PCI with stent, 2018 CABG 2 vessel with mitral valve replacement, cardioversion x 3, DYLAN x2, EGD, colonoscopy, stress test done Past Anesthesia/Blood Transfusion Reactions: No Reported Reaction Date of Last Stent Placement:: 01/22/18 Past Psychological History: No Psychological Hx Reported Smoking Status: Former smoker Past Alcohol Use History: None Reported, Occasional Past Drug Use History: None Reported - Past Family History Father Family Medical History: Congestive Heart Failure (CHF) Additional Family Medical History / Comment(s): Father of CHF at the age of 68yrs. Mother Family Medical History: No Reported History Additional Family Medical History / Comment(s): Mother at the age of 62 or 63 yrs from myasthenia gravis. Brother(s) Family Medical History: Coronary Artery Disease (CAD) Additional Family Medical History / Comment(s): ONE BROTHER HAD CABG Sister(s) Family Medical History: Coronary Artery Disease (CAD) Additional Family Medical History / Comment(s): ONE SISTER HAS HEART STENTS. ONE SISTER HAS HAD CABG Medications and Allergies Home Medications Medication Instructions Recorded Confirmed Type Multivitamin [Men's Multi-Vitamin] 1 tab PO DAILY 01/22/14 05/27/24 History Sertraline [Zoloft] 50 mg PO DAILY 05/20/19 05/27/24 History Aspirin EC [Ecotrin Low Dose] 81 mg PO DAILY 07/30/22 05/27/24 History Atorvastatin [Lipitor] 40 mg PO HS 07/30/22 05/27/24 History Losartan [Cozaar] 75 mg PO HS 07/30/22 05/27/24 History Metoprolol Tartrate [Lopressor] 25 mg PO BID 07/30/22 05/27/24 History Spironolactone [Aldactone] 25 mg PO DAILY 07/30/22 05/27/24 History Warfarin [Coumadin] 7.5 mg PO SUTUTHSA@1700 07/30/22 05/27/24 History Empagliflozin [Jardiance] 25 mg PO DAILY 12/09/22 05/27/24 History Insulin Glargine,Hum.rec.anlog 20 units SQ DAILY 12/09/22 05/27/24 History [Lantus Solostar Pen] Isosorbide Mononitrate ER [Imdur] 30 mg PO DAILY 12/09/22 05/27/24 History Ranolazine [Ranexa] 500 mg PO BID 12/09/22 05/27/24 History metFORMIN HCL [Glucophage] 500 mg PO BID@0900,1700 12/09/22 05/27/24 History Furosemide [Lasix] 40 mg PO TID 06/27/23 05/27/24 History Warfarin [Coumadin] 10 mg PO MOWEFR@1700 06/27/23 05/27/24 History Famotidine [Pepcid] 40 mg PO HS 05/27/24 05/27/24 History Magnesium Oxide [Magnesium] 500 mg PO DAILY 05/27/24 05/27/24 History Tiotropium Br/Olodaterol HCl 2 puff INHALATION RT-DAILY 05/27/24 05/27/24 History [Stiolto Respimat Inhaler (60)] Umeclidinium Brm/Vilanterol Tr 1 puff INHALATION RT-DAILY 05/27/24 05/27/24 History [Anoro Ellipta 62.5-25 Mcg INH] Allergies Allergy/AdvReac Type Severity Reaction Status Date / Time Penicillins Allergy Unknown Verified 05/27/24 07:30 Childhood Physical Exam Vitals: Vital Signs Temp Pulse Pulse Resp BP BP Pulse Ox 05/27/24 08:21 90 05/27/24 08:14 100 05/27/24 08:11 82 05/27/24 08:04 84 18 124/82 96 05/27/24 05:35 81 05/27/24 05:25 73 05/27/24 04:00 98.0 F 78 14 139/90 97 05/27/24 00:38 92 L 05/26/24 23:53 80 18 132/80 95 05/26/24 22:21 88 18 91 L 05/26/24 20:46 98.3 F 89 18 166/96 95 Intake and Output 05/26/24 05/27/24 05/27/24 22:59 06:59 14:59 Output Total 450 Balance -450 Output: Urine 450 Other: Weight 125.191 kg - Constitutional General appearance: cooperative, no acute distress - EENT Eyes: PERRLA - Neck Neck: no lymphadenopathy, normal ROM, no rigidity - Respiratory Respiratory: bilateral: CTA - Cardiovascular Rhythm: regular Heart sounds: normal: S1, S2 - Gastrointestinal General gastrointestinal: soft, no tenderness - Integumentary Integumentary: normal, normal turgor - Neurologic Neurologic: CNII-XII intact - Psychiatric Psychiatric: A&O x's 3 Results CBC & Chem 7: 05/26/24 21:11 05/26/24 21:11 Labs: Abnormal Lab Results - Last 24 Hours (Table) 05/26/24 05/26/24 05/26/24 Range/Units 21:11 21:11 21:11 WBC 11.1 H (3.8-10.6) k/uL PT (10.0-12.5) sec INR (<1.2) Glucose 100 H (74-99) mg/dL Plasma Lactic Acid Wilfrid 2.9 H* (0.7-2.0) mmol/L Creatine Kinase (55-170) U/L 05/26/24 05/26/24 05/27/24 Range/Units 21:11 23:53 06:14 WBC (3.8-10.6) k/uL PT 27.3 H (10.0-12.5) sec INR 2.8 H (<1.2) Glucose (74-99) mg/dL Plasma Lactic Acid Wilfrid 2.1 H* (0.7-2.0) mmol/L Creatine Kinase 180 H (55-170) U/L Assessment and Plan (1) Chest pain Current Visit: Yes Status: Acute Code(s): R07.9 - CHEST PAIN, UNSPECIFIED SNOMED Code(s): 32034215 (2) Fall Current Visit: Yes Status: Acute Code(s): W19.XXXA - UNSPECIFIED FALL, INITIAL ENCOUNTER SNOMED Code(s): 7307823 (3) Alcohol abuse Current Visit: Yes Status: Chronic Code(s): F10.10 - ALCOHOL ABUSE, UNCOMPLICATED SNOMED Code(s): 25947723 (4) CAD (coronary artery disease) Current Visit: Yes Status: Chronic Code(s): I25.10 - ATHSCL HEART DISEASE OF [place] CORONARY ARTERY W/O ANG PCTRS SNOMED Code(s): 14704783 (5) COPD (chronic obstructive pulmonary disease) Current Visit: Yes Status: Chronic Code(s): J44.9 - CHRONIC OBSTRUCTIVE PULMONARY DISEASE, UNSPECIFIED SNOMED Code(s): 05980622 (6) History of mitral valve replacement Current Visit: No Status: Acute Code(s): Z95.2 - PRESENCE OF PROSTHETIC HEART VALVE SNOMED Code(s): 3945293269734 (7) Hypertension Current Visit: No Status: Chronic Code(s): I10 - ESSENTIAL (PRIMARY) HYPERTENSION SNOMED Code(s): 58340661 (8) Sleep apnea Current Visit: No Status: Chronic Code(s): G47.30 - SLEEP APNEA, UNSPECIFIED SNOMED Code(s): 46925419 Plan: Home medications reconciled. Start Accu-Cheks and sliding scale insulin. Check vitamin B12 and folate levels. Order lumbar x-ray Appreciate multiple consultants. Patient seen and evaluated by nurse practitioner, physician in agreement with plan
[2024-05-27 09:21] LABS: Glucose,Whole Blood 142 mg/dL (70-110)
[2024-05-27] MEDS: SERTRALINE 50 MG TAB PO SCH (09:32)
[2024-05-27] MEDS: metFORMIN 500 MG TAB PO SCH (09:32)
[2024-05-27] MEDS: ISOSORBIDE MONONITRATE ER 30 MG TAB.ER.24H PO SCH (09:32)
[2024-05-27] MEDS: FOLIC ACID 1 MG TAB PO SCH (09:32)
[2024-05-27] MEDS: ASPIRIN 81 MG PO SCH (09:32)
[2024-05-27] MEDS: MULTIVITAMINS, THERA 1 EACH TAB PO SCH (09:33)
[2024-05-27] MEDS: METOPROLOL TARTRATE 25 MG TAB PO SCH (09:33)
[2024-05-27] MEDS: SPIRONOLACTONE 25 MG TAB PO SCH (09:33)
[2024-05-27] MEDS: MAGNESIUM OXIDE 400 MG TAB PO SCH (09:33)
[2024-05-27] MEDS: FUROSEMIDE 40 MG TAB PO SCH (09:33)
[2024-05-27] MEDS: RANOLAZINE 500 MG TAB.ER.12H PO SCH (09:33)
[2024-05-27] MEDS: DAPAGLIFLOZIN PROPANEDIOL 10 MG TABLET PO SCH (09:33)
--- NOTE | 2024-05-27 10:03 | XR ---
EXAMINATION TYPE: XR lumbar spine 2 or 3V DATE OF EXAM: 05/27/2024 CLINICAL HISTORY: Low back pain TECHNIQUE: Three views of the lumbar spine are submitted. COMPARISON: CTA thoracic/abdominal pelvis aorta FINDINGS: There are 5 lumbar type vertebral bodies identified. The lumbar spine shows satisfactory alignment w ithout evidence of acute fracture or dislocation. Vertebral body heights are within normal limits. Multilevel disc space narrowing with endplate sclerosis and anterior osteophytosis. Most pronounced at L5-S1. Prominent facet arthropathy L5-S1. The overlying soft tissue appears unremarkable. Atherosc lerotic calcification of the aorta. Aneurysmal dilatation aorta measuring up to 4.1 cm. IMPRESSION: 1. No acute fracture or dislocation is seen in the lumbar spine. 2. Mild multilevel degenerative disc disease with moderate facet arthropathy at L5-S1. 3. Abdominal aortic aneurysm measuring up to 4.1 cm suggested. Seems increased in size from prior CT 2021 measuring up to 3.5 cm. Consider further evaluation with ultrasound. [facility], , 05/27/2024 10:01 AM
[2024-05-27] MEDS: traMADol 50 MG TAB PO PRN (10:11)
[2024-05-27] MEDS: INSULIN DETEMIR (LEVEMIR) 100 UNIT/ML SYR SQ SCH (10:12)
[2024-05-27 12:04] LABS: Glucose,Whole Blood 148 mg/dL (70-110)
--- NOTE | 2024-05-27 12:08 | CT ---
EXAMINATION TYPE: CT brain wo con CT DLP: 1184.4 mGycm, Automated exposure control for dose reduction was used. DATE OF EXAM: 05/27/2024 12:03 PM COMPARISON: Prior CT Brain from 05/20/2019 . CLINICAL INDICATION:Male, 59 years old with history of s/p syncope, r/o bleed, s/p syncope r/o bleed TECHNIQUE: Brain: Multiple axial CT images of the brain were obtained without IV contrast. . Coronal and sagitta l reformats reviewed. FINDINGS: Brain: Extra-axial spaces: No abnormal extra-axial fluid collections. Ventricular system: Within normal limits Cerebral parenchyma: No acute intraparenchymal hemorrhage or mass effect. The rooney-white junction is well differentiated. Cerebellum: Unremarkable. Mass effect: No evidence of midline shift. Intracranial vasculature: Atherosclerotic calcifications of the intracranial vessels. Soft tissues: Normal. Calvarium/osseous structures: No depressed skull fracture. Paranasal sinuses and mastoid air cells: Clear Visualized orbits: Orbital contents are intact. IMPRESSION: No acute intracranial process. [facility], , 05/27/2024 12:06 PM
[2024-05-27] MEDS: INSULIN ASPART (NovoLOG) 100 UNIT/ML VIAL SQ SCH (12:20)
--- NOTE | 2024-05-27 13:34 | P.CRDCN ---
History of Present Illness History of present illness: HISTORY OF PRESENT ILLNESS: This is a 59-year-old male with a past medical history significant for coronary artery disease with previous stenting and CABG, mechanical mitral valve replace ment, hypertension, hyperlipidemia, paroxysmal atrial fibrillation, morbid obesity, former nicotine dependence, COPD, and daily alcohol use. Patient follows in the office with Dr. Valles. We have been asked to see the patient in consultation for ACS. Patient examined at the bedside in the emergency room. Patient states yesterday he got up to let his dogs out when he began to feel funny and then passed out. He does report losing consciousness. He states that his dog woke him up by licking his face. He is unsure of how long he was laying on the ground. The patient does report having pain in his legs and some mild chest discomfort afterwards. He also reports having some shortness of breath the past few days going up and down the stairs. At the time of examination, he denies any chest pain or pressure. He denies any shortness of breath. The patient was found to be acutely intoxicated upon arrival with an alcohol level of 135. However the patient states he had not started drinking when he had his syncopal episode. He states he started drinking beer shortly after this episode. DIAGNOSTICS: - EKG reveals sinus mechanism with right bundle branch block - Chest xray cardiomegaly mild pulmonary vascular congestion - Laboratory data: WBC 11.1. Hemoglobin 15.3. INR 2.8. D-dimer 0.57. Sodium 137. Potassium 3.5. BUN 10. Creatinine 0.75. Lactic acid 2.1. Troponin 0.025. 0.016. 0.023. proBNP 122. Serum alcohol 135. - Current home cardiac medications include Coumadin 10 mg Sunday and 7.5 mg Sunday, Lipitor 40 mg at night, los noé 75 mg at night, Aldactone 25 mg daily, Ranexa 500 mg twice a day, metoprolol tartrate 25 mg twice a day, Imdur 30 mg daily, Jardiance 25 mg daily, aspirin 81 mg daily, Lasix 40 mg 3 times daily - Most recent echocardiogram obtained in February 2024 revealed ejection fraction 55%, mild LVH, severely dilated LA, normally functioning mechanical mitral valve, mild to moderate tricuspid regurg - Cardiac catheterization history: October 2022 revealing dominant RCA, calcified chronically occluded left main calcified 50% lesion. LAD heavily calcified with mild to moderate diffuse disease, circumflex occluded, SVG to circumflex and BINTA to RCA are both patent. REVIEW OF SYSTEMS: At the time of my exam: CONSTITUTIONAL: Denies fever or chills. HEENT: Denies blurred vision, vision changes, or eye pain. Denies hemoptysis CARDIOVASCULAR: Denies chest pain. Denies orthopnea. Denies PND. Denies p alpitations RESPIRATORY: Denies shortness of breath. GASTROINTESTINAL: Denies abdominal pain. Denies nausea or vomiting. HEMATOLOGIC: Denies bleeding disorders. GENITOURINARY: Denies any blood in urine. SKIN: Denies pruitis. Denies rash. PHYSICAL EXAM: VITAL SIGNS: Reviewed. GENERAL: Well-developed in no acute distress. HEENT: Head is normocephalic. Pupils are equal, round. Sclerae anicteric. Mucous membranes of the mouth are moist. Neck supple. No JVD or thyromegaly LUNGS: Respirations even and unlabored. Lungs essentially clear to auscultation bilaterally. HEART: Regular rate and rhythm. S1 and S2 heard. Mechanical click noted ABDOMEN: Soft. Nondistended. Nontender. EXTREMITIES: Normal range of motion. No clubbing or cyanosis. Peripheral pulses intact. No lower extremity edema NEUROLOGIC: Awake and alert. Oriented x 3. ASSESSMENT: Syncope Acute alcohol intoxication Coronary artery disease with previous stenting and subsequent CABG x 2 vessel, 08/2018 with BINTA to RCA and SVG to second OM branch of circumflex Mechanical mitral valve replacement, 08/2018 Paroxysmal atrial fibrillation Chronic heart failure with preserved EF, currently euvolemic Hypertension Hyperlipidemia Former nicotine dependence COPD Obstructive sleep apnea Obesity: BMI 37.4 Diabetes Alcohol abuse, patient reports 6-10 beers daily PLAN: Obtain 2D echo to assess cardiac structure and function Continue Coumadin. Monitor INR. Discontinue Lasix. Begin oral Bumex 1 mg daily Increase metoprolol to 50 mg twice a day Discontinue IV fluids Continue telemetry monitoring to assess for any arrhythmias Obtain CT of the brain without contrast Consult neurology for evaluation Abstinence from alcohol recommended Further recommendations pending patient course Nurse practitioner note has been reviewed by physician. Signing provider agrees with the documented findings, assessment, and plan of care documented by EMU FARMER as a scribe. Past Medical History Past Medical History: Atrial Fibrillation, Coronary Artery Disease (CAD), Chest Pain / Angina, Heart Failure, GERD/Reflux, Hyperlipidemia, Hypertension, Pneumonia, Sleep Apnea/CPAP/BIPAP Additional Past Medical History / Comment(s): DIVERTICULITIS. ALEISHA with Cpap use History of Any Multi-Drug Resistant Organisms: None Reported Past Surgical History: Appendectomy, Coronary Bypass/CABG, Heart Catheterization With Stent Additional Past Surgical History / Comment(s): 2017 PCI with stent, 2017 CABG 2 vessel with mitral valve replacement, cardioversion x 3, DYLAN x2, EGD, colonoscopy, stress test done Past Anesthesia/Blood Transfusion Reactions: No Reported Reaction Date of Last Stent Placement:: 01/22/18 Past Psychological History: No Psychological Hx Reported Smoking Status: Former smoker Past Alcohol Use History: None Reported, Occasional Past Drug Use History: None Reported - Past Family History Father Family Medical History: Congestive Heart Failure (CHF) Additional Family Medical History / Comment(s): Father of CHF at the age of 68yrs. Mother Family Medical History: No Reported History Additional Family Medical History / Comment(s): Mother at the age of 62 or 63 yrs from myasthenia gravis. Brother(s) Family Medical History: Coronary Artery Disease (CAD) Additional Family Medical History / Comment(s): ONE BROTHER HAD CABG Sister(s) Family Medical History: Coronary Artery Disease (CAD) Additional Family Medical History / Comment(s): ONE SISTER HAS HEART STENTS. ONE SISTER HAS HAD CABG Medications and Allergies Home Medications Medication Instructions Recorded Confirmed Type Multivitamin [Men's Multi-Vitamin] 1 tab PO DAILY 01/22/14 05/27/24 History Sertraline [Zoloft] 50 mg PO DAILY 05/20/19 05/27/24 History Aspirin EC [Ecotrin Low Dose] 81 mg PO DAILY 07/30/22 05/27/24 History Atorvastatin [Lipitor] 40 mg PO HS 07/30/22 05/27/24 History Losartan [Cozaar] 75 mg PO HS 07/30/22 05/27/24 History Metoprolol Tartrate [Lopressor] 25 mg PO BID 07/30/22 05/27/24 History Spironolactone [Aldactone] 25 mg PO DAILY 07/30/22 05/27/24 History Warfarin [Coumadin] 7.5 mg PO SUTUTHSA@1700 07/30/22 05/27/24 History Empagliflozin [Jardiance] 25 mg PO DAILY 12/09/22 05/27/24 History Insulin Glargine,Hum.rec.anlog 20 units SQ DAILY 12/09/22 05/27/24 History [Lantus Solostar Pen] Isosorbide Mononitrate ER [Imdur] 30 mg PO DAILY 12/09/22 05/27/24 History Ranolazine [Ranexa] 500 mg PO BID 12/09/22 05/27/24 History metFORMIN HCL [Glucophage] 500 mg PO BID@0900,1700 12/09/22 05/27/24 History Furosemide [Lasix] 40 mg PO TID 06/27/23 05/27/24 History Warfarin [Coumadin] 10 mg PO MOWEFR@1700 06/27/23 05/27/24 History Famotidine [Pepcid] 40 mg PO HS 05/27/24 05/27/24 History Magnesium Oxide [Magnesium] 500 mg PO DAILY 05/27/24 05/27/24 History Tiotropium Br/Olodaterol HCl 2 puff INHALATION RT-DAILY 05/27/24 05/27/24 History [Stiolto Respimat Inhaler (60)] Umeclidinium Brm/Vilanterol Tr 1 puff INHALATION RT-DAILY 05/27/24 05/27/24 History [Anoro Ellipta 62.5-25 Mcg INH] Allergies Allergy/AdvReac Type Severity Reaction Status Date / Time Penicillins Allergy Unknown Verified 05/27/24 07:30 Childhood Physical Exam Vitals: Vital Signs Temp Pulse Pulse Resp BP BP Pulse Ox 05/27/24 12:16 78 05/27/24 12:08 87 05/27/24 11:00 86 13 121/71 80 L 05/27/24 10:00 91 16 120/69 88 L 05/27/24 09:00 89 15 124/72 94 L 05/27/24 08:21 90 05/27/24 08:14 100 05/27/24 08:11 82 05/27/24 08:06 84 14 134/90 96 05/27/24 08:04 84 18 124/82 96 05/27/24 05:35 81 05/27/24 05:25 73 05/27/24 04:00 98.0 F 78 14 139/90 97 05/27/24 03:00 127/73 05/27/24 02:00 127/73 05/27/24 01:00 75 14 142/87 95 05/27/24 00:38 92 L 05/27/24 00:00 81 14 132/80 93 L 05/26/24 23:53 80 18 132/80 95 05/26/24 23:00 85 18 122/69 91 L 05/26/24 22:21 88 18 91 L 05/26/24 22:20 146/92 88 L 05/26/24 20:46 98.3 F 89 18 166/96 95 Intake and Output 05/26/24 05/27/24 05/27/24 22:59 06:59 14:59 Output Total 450 Balance -450 Output: Urine 450 Other: Weight 125.191 kg Results 05/26/24 21:11 05/26/24 21:11 Cardiac Enzymes 05/26/24 05/26/24 05/27/24 Range/Units 21:11 21:11 03:03 AST 31 (17-59) U/L Troponin I 0.025 0.016 (0.000-0.034) ng/mL 05/27/24 Range/Units 05:38 AST (17-59) U/L Troponin I 0.023 (0.000-0.034) ng/mL Coagulation 05/27/24 Range/Units 06:14 PT 27.3 H (10.0-12.5) sec CBC 05/26/24 Range/Units 21:11 WBC 11.1 H (3.8-10.6) k/uL RBC 4.85 (4.30-5.90) m/uL Hgb 15.3 (13.0-17.5) gm/dL Hct 46.7 (39.0-53.0) % Plt Count 210 (150-450) k/uL Comprehensive Metabolic Panel 05/26/24 Range/Units 21:11 Sodium 137 (137-145) mmol/L Potassium 3.5 (3.5-5.1) mmol/L Chloride 99 (98-107) mmol/L Carbon Dioxide 23 (22-30) mmol/L BUN 10 (9-20) mg/dL Creatinine 0.75 (0.66-1.25) mg/dL Glucose 100 H (74-99) mg/dL Calcium 9.3 (8.4-10.2) mg/dL AST 31 (17-59) U/L ALT 29 (4-49) U/L Alkaline Phosphatase 82 (38-126) U/L Total Protein 7.1 (6.3-8.2) g/dL Albumin 4.5 (3.5-5.0) g/dL Current Medications Generic Name Dose Route Start Last Admin Trade Name Freq PRN Reason Stop Dose Admin Albuterol/Ipratropium 3 ml 05/27/24 04:00 05/27/24 12:07 Ipratropium-Albuterol 3 Ml Neb INHALATION 3 ml RT-Q4H [facility] Administration Aspirin 81 mg 05/27/24 09:00 05/27/24 09:32 Aspirin 81 Mg PO 81 mg DAILY SAMANTHA Administration Atorvastatin Calcium 40 mg 05/27/24 21:00 Atorvastatin 40 Mg Tab PO HS SAMANTHA Bumetanide 1 mg 05/28/24 09:00 Bumetanide 1 Mg Tab PO DAILY SAMANTHA Dapagliflozin 10 mg 05/27/24 09:00 05/27/24 09:33 Dapagliflozin Propanediol 10 Mg Tablet PO 10 mg DAILY SAMANTHA Administration Famotidine 40 mg 05/27/24 21:00 Famotidine 20 Mg Tab PO HS [facility] Folic Acid 1 mg 05/27/24 09:00 05/27/24 09:32 Folic Acid 1 Mg Tab PO 1 mg DAILY SAMANTHA Administration Insulin Aspart 0 unit 05/27/24 12:30 05/27/24 12:20 Insulin Aspart (Novolog) 100 Unit/Ml Vial SQ Not Given [facility] Protocol Insulin Detemir 20 unit 05/27/24 09:30 05/27/24 10:12 Insulin Detemir (Levemir) 100 Unit/Ml Syr SQ 20 unit DAILY@0700 [facility] Administration Isosorbide Mononitrate 30 mg 05/27/24 09:00 05/27/24 09:32 Isosorbide Mononitrate Er 30 Mg Tab.Er.24h PO 30 mg DAILY SAMANTHA Administration Losartan Potassium 75 mg 05/27/24 21:00 Losartan 25 Mg Tab PO HS SAMANTHA Magnesium Oxide 400 mg 05/27/24 09:00 05/27/24 09:33 Magnesium Oxide 400 Mg Tab PO 400 mg DAILY SAMANTHA Administration Metformin HCl 500 mg 05/27/24 09:00 05/27/24 09:32 Metformin 500 Mg Tab PO 500 mg BID@0900,1700 [facility] Administration Metoprolol Tartrate 50 mg 05/27/24 21:00 Metoprolol Tartrate 50 Mg Tab PO BID [facility] Miscellaneous Information 0 each 05/27/24 09:10 Warfarin Per Pharmacy MISCELLANE DIRECTED PRN INR Multivitamins 1 each 05/27/24 09:00 05/27/24 09:33 Multivitamins, Thera 1 Each Tab PO 1 each DAILY [facility] Administration Naloxone HCl 0.2 mg 05/27/24 00:39 Naloxone 0.4 Mg/Ml 1 Ml Vial IV Q2M PRN Opioid Reversal Ondansetron HCl 4 mg 05/27/24 00:39 Ondansetron 4 Mg/2 Ml Vial IVP Q8HR PRN Nausea And Vomiting Pantoprazole Sodium 40 mg 05/27/24 07:30 05/27/24 06:40 Pantoprazole 40 Mg Tablet PO 40 mg [id number]-[id number] [facility] Administration Ranolazine 500 mg 05/27/24 09:00 05/27/24 09:33 Ranolazine 500 Mg Tab.Er.12h PO 500 mg BID [facility] Administration Sertraline HCl 50 mg 05/27/24 09:00 05/27/24 09:32 Sertraline 50 Mg Tab PO 50 mg DAILY [facility] Administration Spironolactone 25 mg 05/27/24 09:00 05/27/24 09:33 Spironolactone 25 Mg Tab PO 25 mg DAILY [facility] Administration Tramadol HCl 50 mg 05/27/24 09:59 05/27/24 10:11 Tramadol 50 Mg Tab PO 50 mg QID PRN Administration Pain Warfarin Sodium 7.5 mg 05/27/24 17:00 Warfarin 7.5 Mg Tab PO SUTUTHSA@1700 [facility] Protocol Warfarin Sodium 10 mg 05/28/24 17:00 Warfarin 10 Mg Tab PO MOWEFR@1700 [facility] Protocol Intake and Output 05/26/24 05/27/24 05/27/24 22:59 06:59 14:59 Output Total 450 Balance -450 Output: Urine 450 Other: Weight 125.191 kg 05/26/24 21:11 05/26/24 21:11
[2024-05-27 16:32] LABS: Glucose,Whole Blood 203 mg/dL (70-110)
[2024-05-27] MEDS: WARFARIN 7.5 MG TAB PO SCH (16:51)
--- NOTE | 2024-05-27 18:06 | CA ---
Transthoracic Echo Report Name: Tristen Hare Age: 59 Gender: M : 1965 Exam Date: 05/27/2024 14:47 Exam Location: [facility] Ht (in): 72 Wt (lb): 276 Ordering Physician: Peace Cardoza Attending/Referring Phys: [id number], Nani [employer] Kay Ellison, CASI Procedure CPT: Indications: LV function, CP, MVR Cardiac Hx: CABG, MV REPLACED, STENTS Technical Quality: Fair Contrast 1: Total Dose (mL): Contrast 2: Total Dose (mL): MEASUREMENTS (Male / Female) Normal Values 2D ECHO LV Diastolic Diameter PLAX 4.7 cm 4.2 - 5.9 / 3.9 - 5.3 cm LV Systolic Diameter PLAX 3.6 cm IVS Diastolic Thickness 1.0 cm 0.6 - 1.0 / 0.6 - 0.9 cm LVPW Diastolic Thickness 1.3 cm 0.6 - 1.0 / 0.6 - 0.9 cm LV Relative Wall Thickness 0.5 RV Internal Dim ED PLAX 3.3 cm LV Diastolic Volume MOD 4C 178.6 cm??? LV Systolic Volume MOD 4C 75.0 cm??? LV Ejection Fraction MOD 4C 58.0 % LV Cardiac Index MOD 4C 3387.7 cm???/min???m??? LV Diastolic Length 4C 8.2 cm LV Systolic Length 4C 6.8 cm LV Diastolic Volume MOD 2C 106.6 cm??? LV Systolic Volume MOD 2C 40.8 cm??? LV Ejection Fraction MOD 2C 61.7 % LV Cardiac Index MOD 2C 2152.0 cm???/min???m??? LV Diastolic Length 2C 7.1 cm LV Systolic Length 2C 5.7 cm LA Volume 135.4 cm??? 18 - 58 / 22 - 52 cm??? LA Volume Index 52.7 cm???/m??? 16 - 28 cm???/m??? M-MODE Aortic Root Diameter MM 4.0 cm AV Cusp Separation MM 2.4 cm DOPPLER AV Peak Velocity 171.4 cm/s AV Peak Gradient 11.8 mmHg MV Peak Velocity 253.4 cm/s MV Peak Gradient 25.7 mmHg MV Mean Velocity 168.5 cm/s MV Mean Gradient 13.5 mmHg MV Velocity Time Integral 59.1 cm TR Peak Velocity 286.6 cm/s TR Peak Gradient 32.9 mmHg Right Ventricular Systolic Press 34.7 mmHg FINDINGS Left Ventricle Left ventricular ejection fraction is estimated at 60-65 %. Left ventricular cavity size normal. Normal left ventricular wall motion. Right Ventricle Mild right ventricular dilatation. Mild pulmonary hypertension. Right Atrium Normal right atrial size. No right atrial thrombus or mass seen. Left Atrium Severely increased left atrial volume. Moderately increased left atrial area. No left atrial thrombus or mass present. Mitral Valve Mechanical MV with mean gradient of 14 mmHG. Aortic Valve Trileaflet aortic valve. No aortic valve stenosis or regurgitation. Tricuspid Valve Structurally normal tricuspid valve. Mild tricuspid regurgitation. Pulmonic Valve Pulmonic valve not well visualized. No pulmonic regurgitation. Pericardium No pericardial effusion. Aorta Moderate aortic dilatation at the level of the sinuses of valsalva 40 mm CONCLUSIONS Diagnosis Chest pain/ mitral valve repair Preserved LV size and function Mildly enlarged right ventricle Severe left atrial enlargement Mechanical mitral valve, gradient 14 mmHg Previewed by: Dr. Zachary Obregon MD (Electronically Signed) Final Date: 27 May 2024 18:05
--- NOTE | 2024-05-27 19:14 | US ---
EXAMINATION TYPE: US carotid duplex BILAT DATE OF EXAM: 05/27/2024 COMPARISON: 08/12/2018 CLINICAL INDICATION: Male, 59 years old with history of Syncope; Syncope TECHNIQUE: Carotid duplex ultrasound examination. Indirect Doppler criteria was utilized. FINDINGS: EXAM MEASUREMENTS: RIGHT: Peak Systolic Velocity (PSV) cm/sec ----- Right CCA: 77.4 ----- Right ICA: 84.6 ----- Right ECA: 275.4 ICA/CCA ratio: 1.1 RIGHT: End Diastole cm/sec ----- Right CCA: 20.8 ----- Right ICA: 19.5 ----- Right ECA: 46.2 LEFT: Peak Systolic Velocity (PSV) cm/sec ----- Left CCA: 104.8 ----- Left ICA: 98.4 ----- Left ECA: 236.6 ICA/CCA ratio: 0.9 LEFT: End Diastole cm/sec ----- Left CCA: 22.5 ----- Left ICA: 25.7 ----- Left ECA: 13.7 VERTEBRALS (direction of flow): Right Vertebral: Antegrade Left Vertebral: Antegrade Rhythm: Normal TOBACCO SAMPLER NOTES: Limited exam due to high bifurcation and neck girth. Plaque seen throughout entire ty of vessels bilaterally. Unable to visualize distal left ICA. Elevated velocities seen within the r ight bulb and bilateral ECAs. IMPRESSION: 1. No focal stenosis identified within the internal carotid arteries. 2. Severe stenosis, likely greater than 70%, is noted within the carotid arteries bilaterally Criteria for Assigning % of Stenosis / Diameter reduction (Estimation based on the indirect measurements of the internal carotid artery velocities (ICA PSV). 1. Normal (no stenosis)=ICA PSV < 125 cm/s: ratio < 2.0: ICA EDV<40 cm/s. 2. Less than 50% stenosis=ICA PSV < 125 cm/s: ratio < 2.0: ICA EDV<40 cm/s. 3. 50 to 69% stenosis=ICA PSV of 125 to 230 cm/s: ration 2.0 ? 4.0: ICA EDV 40-100 cm/s. 4. Greater than 70% stenosis to near occlusion= ICA PSV > 230 cm/s: ratio > 4.0: ICA EDV > 100 cm/s. 5. Near occlusion= ICA PSV velocities may be low or undetectable: variable ratio and ICA EDV. 6. Total occlusion=unable to detect flow. [facility], , 05/27/2024 7:11 PM
[2024-05-27 19:52] LABS: Glucose,Whole Blood 185 mg/dL (70-110)
[2024-05-27] MEDS: METOPROLOL TARTRATE 50 MG TAB PO SCH (20:18)
[2024-05-27] MEDS: ATORVASTATIN 40 MG TAB PO SCH (20:18)
[2024-05-27] MEDS: LOSARTAN 25 MG TAB PO SCH (20:19)
[2024-05-27] MEDS: FAMOTIDINE 20 MG TAB PO SCH (20:19)
[2024-05-28] MEDS ORDERED: LORazepam 2 MG/ML INJ IV PRN ×3 (05:45)
[2024-05-28 05:56] LABS: Glucose,Whole Blood 171 mg/dL (70-110)
[2024-05-28 06:50] LABS: INR 3.2 (<1.2); Prothrombin Time 31.4 sec (10.0-12.5)
[2024-05-28] MEDS: BUMETANIDE 1 MG TAB PO SCH (08:07)
--- NOTE | 2024-05-28 09:07 | P.PN ---
Subjective Progress Note Date: 05/28/24 Principal diagnosis: The patient is 59-year-old white male essentially admitted for ethanol abuse and fall. Underlying history of COPD with heart failure elements. He states poor mobility at this point. I will ask therapy to see the patient. Appreciate cardiology input He complains of weakness and mobility issues. No tremors noted today. Objective - Vital Signs Vital signs: Vital Signs Temp 97.6 F 05/28/24 07:59 Pulse 78 05/28/24 08:00 Resp 16 05/28/24 08:00 BP 125/68 05/28/24 07:59 Pulse Ox 94 L 05/28/24 07:59 FiO2 Intake & Output 05/27/24 05/28/24 05/28/24 18:59 06:59 18:59 Intake Total 898 610 Output Total 500 1550 Balance 398 -1550 610 Weight 125.191 kg 128.7 kg Intake: IV 10 Invasive Line 2 10 Oral 898 600 Output: Urine 500 1550 Other: Voiding Method Urinal Urinal - Constitutional General appearance: Present: average body habitus, cooperative, no acute distress - EENT Eyes: Absent: abnormal pupil - Neck Neck: Absent: lymphadenopathy - Respiratory Respiratory: bilateral: diminished - Cardiovascular Rhythm: irregularly irregular Heart sounds: normal: S1, S2 Abnormal Heart Sounds: Absent: S3 Gallop - Gastrointestinal General gastrointestinal: Present: soft. Absent: tenderness - Integumentary Integumentary: Absent: cellulitis - Labs CBC & Chem 7: 05/26/24 21:11 05/26/24 21:11 Labs: Abnormal Lab Results - Last 24 Hours (Table) 05/27/24 05/27/24 05/27/24 Range/Units 09:19 12:02 16:30 PT (10.0-12.5) sec INR (<1.2) POC Glucose (mg/dL) 142 H 148 H 203 H (70-110) mg/dL 05/27/24 05/28/24 05/28/24 Range/Units 19:51 05:54 06:13 PT 31.4 H (10.0-12.5) sec INR 3.2 H (<1.2) POC Glucose (mg/dL) 185 H 171 H (70-110) mg/dL Assessment and Plan (1) CHF (congestive heart failure) Current Visit: Yes Status: Acute Code(s): I50.9 - HEART FAILURE, UNSPECIFIED SNOMED Code(s): 32985769 (2) Alcohol abuse Current Visit: Yes Status: Chronic Code(s): F10.10 - ALCOHOL ABUSE, UNCOMPLICATED SNOMED Code(s): 13351616 (3) CAD (coronary artery disease) Current Visit: Yes Status: Chronic Code(s): I25.10 - ATHSCL HEART DISEASE OF [place] CORONARY ARTERY W/O ANG PCTRS SNOMED Code(s): 72522909 (4) COPD (chronic obstructive pulmonary disease) Current Visit: Yes Status: Chronic Code(s): J44.9 - CHRONIC OBSTRUCTIVE PULMONARY DISEASE, UNSPECIFIED SNOMED Code(s): 52796268 (5) Atrial fibrillation Current Visit: No Status: Acute Code(s): I48.91 - UNSPECIFIED ATRIAL FIBRILLATION SNOMED Code(s): 85020015 (6) Status post mitral valve replacement Current Visit: No Status: Acute Code(s): Z95.2 - PRESENCE OF PROSTHETIC HEART VALVE SNOMED Code(s): 4265338221258 (7) GERD (gastroesophageal reflux disease) Current Visit: No Status: Chronic Code(s): K21.9 - GASTRO-ESOPHAGEAL REFLUX DISEASE WITHOUT ESOPHAGITIS SNOMED Code(s): 556120606 (8) Hypertension Current Visit: No Status: Chronic Code(s): I10 - ESSENTIAL (PRIMARY) HYPERTENSION SNOMED Code(s): 09698887 (9) Former smoker Current Visit: No Status: Resolved Code(s): Z87.891 - PERSONAL HISTORY OF NICOTINE DEPENDENCE SNOMED Code(s): 6438383 Plan: Asked physical therapy to see the patient for home generalized weakness and mobility. Continue current regimen of treatment. CIWA instituted. Check CBC and CMP in a.m.
--- NOTE | 2024-05-28 11:36 | P.PN ---
Subjective Progress Note Date: 05/28/24 Principal diagnosis: Shortness of breath. Patient is 59-year-old male with past medical history significant for COPD, obstructive sleep apnea with home CPAP machine, mitral valve regurgitation status post replacement, proximal atrial fibrillation, coronary artery disease with previous coronary stents and bypass surgery, high blood pressure, hyperlipidemia, diabetes mellitus type 2, and obesity. Patient does follow in the pulmonary office with Dr. Garcia. His primary care provider is Dr. Valderrama. Patient presents the emergency department last night after a fall. He reportedly fell through his screen door. He states he may have lost consciousness briefly. He was found to be intoxicated. Serum alcohol level 135. He drinks approximately, ten 12 ounce beers per day. No obvious head trauma. Does take Coumadin outpatient. Chief concern is some acute lower back pain. P ain is actually localized off to the left. Does admit some wifh-qgi-vqozcos in his left lower extremity. No saddle anesthesia or bowel or bladder incontinence. We were asked to evaluate the patient as his COPD was felt to be active in the ED. He states that his shortness of breath started after falling. No reports of vomiting or aspiration. He denies recent sick contacts. No URI like symptoms. Denies fever or chills. Endorses occasional cough with minimal yellow sputum production. His left sided chest is sore, which is reproducible with manipulation. Chest x-ray showing cardiomegaly and mild PVC. NT proBNP low. No obvious focal infiltrates or pneumonia. No pleural effusions or pneumothoraces. CBC: WBC count 11.1, hemoglobin 15.3, hematocrit 46.7, platelets 210. CMP: Sodium 137, potassium 3.5, chloride 99, serum bicarb 23, BUN 10, creatinine 0.75, glucose 100. Lactic 2.9 down to 1.1. LFTs unremarkable. Troponin 0.025 and 0.16 respectively. CPK 180. Saline infusing at 130 mL/h. Patient currently being evaluated in the emergency department, room 25. He is on 2 L/min nasal cannula. SpO2 97%. Nontachypneic. Afebrile. No acute respiratory distress.. Progress note dated May 28, 2024. The patient is seen today in room 374. He is resting comfortably in bed. He is on room air. No IV fluids. His breathing is improved. He was admitted with a diagnosis of COPD exacerbation. He typically sees one of my partners in the office for his COPD. Labs today include a PTT of 31.4, INR 3.2. Glucose is 171. Objective - Vital Signs Vital signs: Vital Signs Temp 97.6 F 05/28/24 07:59 Pulse 76 05/28/24 11:32 Resp 16 05/28/24 11:10 BP 114/68 05/28/24 11:10 Pulse Ox 94 L 05/28/24 11:10 FiO2 Intake & Output 05/27/24 05/28/24 05/28/24 18:59 06:59 18:59 Intake Total 898 610 Output Total 500 1550 550 Balance 398 -1550 60 Weight 125.191 kg 128.7 kg Intake: IV 10 Invasive Line 2 10 Oral 898 600 Output: Urine 500 1550 550 Other: Voiding Method Urinal Urinal - Exam No acute distress, oriented 3. Currently on room air. HEENT examination is grossly unremarkable. Mucous membranes are moist. No oral lesions. Neck supple. Full range of motion. No adenopathy thyromegaly or neck vein distention. Cardiovascular examination reveals regular rhythm rate. S1-S2 normal. No S3 or S4. No discernible murmur noted. Lungs reveal minimal scattered rhonchi. No wheezes or crackles. Saturations are excellent. Abdomen soft bowel sounds are heard. No masses or tenderness. Extremities are intact. No cyanosis clubbing or edema. Skin is without rash or lesion. Neurologic examination is brief but nonfocal. - Labs CBC & Chem 7: 05/26/24 21:11 05/26/24 21:11 Labs: Abnormal Lab Results - Last 24 Hours (Table) 05/27/24 05/27/24 05/27/24 Range/Units 12:02 16:30 19:51 PT (10.0-12.5) sec INR (<1.2) POC Glucose (mg/dL) 148 H 203 H 185 H (70-110) mg/dL 05/28/24 05/28/24 Range/Units 05:54 06:13 PT 31.4 H (10.0-12.5) sec INR 3.2 H (<1.2) POC Glucose (mg/dL) 171 H (70-110) mg/dL Assessment and Plan Assessment: S/P fall. Alcohol intoxication serum alcohol level 135. Possible acute COPD exacerbation. Acute hypoxemic respiratory failure, possibly secondary to above. Moderate chronic obstructive pulmonary disease, with FEV1 67% of predicted. Obstructive sleep apnea, maintained on VPAP auto with a minimum pressure of 10 and a maximum pressure of 20. Coronary artery disease, with previous coronary stents and subsequent coronary artery bypass surgery. History of severe mitral valve regurgitation status post mechanical mitral valve replacement 2017. History of paroxysmal atrial fibrillation. Benign essential hypertension. Hyperlipidemia. Diabetes mellitus type 2. History of GERD without esophagitis. Obesity with a BMI of 37.4 kg/m. Alcoholism, drinks 10, 12 ounce beers per day. Ex-smoker. Plan: Plan dated May 28, 2024. The patient is seen today room 374. The patient appears to be doing relatively well. The patient is currently on room air. No IV fluids. He is not admitting to any significant shortness of breath. In fact, shortness of breath, has improved. Labs, x-rays, and all medications are reviewed. Additional recommendations and suggestions are forthcoming. Time with Patient: Less than 30
[2024-05-28 11:44] LABS: Glucose,Whole Blood 189 mg/dL (70-110)
--- NOTE | 2024-05-28 12:32 | P.CNNES ---
History of Present Illness Consult date: 05/27/24 Requesting physician: Peace Cardoza Reason for Consult: Syncope History of Present Illness: Patient is a 59-year-old right-handed male came to the hospital by ambulance yesterday at 8:44 PM for dizziness and a syncopal spell. Patient states that for the last 6 months, he has been feeling dizziness off and on, when he gets up after he is sitting in a chair. He would be standing to pull Of coffee and fee ls dizzy and has to sit down to calm it down. He has never fallen down, or passed out, but he has to hold onto something until it clears up. This postural dizziness last for about couple minutes, although sometimes may last for 5 to 10 minutes. It does not happen every day and not every time that he stands up, rather more off and on. Patient states that yesterday at 12:30 PM, he took his dog to let him out. As he was going out, the screen fell off. He was trying to put the screen back, when without any warning he passed out and fell and woke up to his dog licking his face. He believes that he was out for "not too long". He denies any tongue bite or loss of control of urine. As per EMS flowsheet when they arrived, patient was sitting upright on a bench in his bedroom. Patient had a syncopal episode this afternoon resulting in a fall and now chest pain for the last 30 minutes with additional pain in the left arm and left shoulder. He had mentioned that he fell on his deck approximately 12:15 PM when he had a syncopal episode and does not recall how long he was unresponsive for. He states that he awoke to his dog licking his face. He does not recall falling. Denies hitting his head, dizziness or neck pain. He mentions that he had 1 episode similar in the past with no known cause. Patient's vitals at the scene was blood pressure 147/87, pulse rate 90, respiration 20, saturation 98%, repeat blood pressure 155/86. Blood test shows WBC 11.1 hemoglobin 15.3 normal platelets. Basic metabolic panel normal, lactate 2.9. Hepatic panel normal, CK1 80. Troponin negative. Blood alcohol level 135. Troponins negative. INR 2.8. Chest x-ray showed cardiomegaly and mild pulmonary vascular congestion. Correlate with BNP for CHF. CT of the head showed no acute intracranial process. Paranasal sinuses are reported clear. X-ray of the lumbar spine showed no acute fracture or dislocation is seen in the lumbar spine. Mild multilevel degenerative disc disease with moderate facet arthropathy at L5-S1. Abdominal aortic aneurysm measuring up to 4.1 cm suggested. Seems increased in size from prior CT 2021 when it was measuring up to 3.5 cm. Home medications include Zoloft 50 mg, losartan, aspirin 81 mg, warfarin, Aldactone, metoprolol, Lipitor, metformin, Lasix, Pepcid. Patient denies any tobacco use or any marijuana. Patient drinks 6-10 beers every day for last 15 to 20 years. Once in a while he would drink 2 g and a Coke. He drinks slightly more on the weekend. Patient states that on Sunday he drank 15 beers, on Sunday he drank 12 beers and on Sunday he drank 6 beers. Patient has diabetes, COPD, obstructive sleep apnea. Denies any family history of epilepsy. Patient denies any nausea vomiting diarrhea. He does have some low back pain, complaining of some chest pain, and shortness of breath. Review of Systems All pertinent positive and negative mentioned in HPI. Past Medical History Past Medical History: Atrial Fibrillation, Coronary Artery Disease (CAD), Chest Pain / Angina, Heart Failure, COPD, Diabetes Mellitus, GERD/Reflux, Hyperlipidemia, Hypertension, Myocardial Infarction (CA), Mitral Valve Prolapse (MVP), Pneumonia, Sleep Apnea/CPAP/BIPAP Additional Past Medical History / Comment(s): DIVERTICULITIS. ALEISHA with Cpap use Last Myocardial Infarction Date:: 2017 History of Any Multi-Drug Resistant Organisms: None Reported Past Surgical History: Appendectomy, Coronary Bypass/CABG, Heart Catheterization With Stent Additional Past Surgical History / Comment(s): 2018 PCI with stent, 2018 CABG 2 vessel with mitral valve replacement, cardioversion x 3, DYLAN x2, EGD, colonoscopy, stress test done Past Anesthesia/Blood Transfusion Reactions: No Reported Reaction Date of Last Stent Placement:: 01/22/18 Past Psychological History: No Psychological Hx Reported Additional Psychological History / Comment(s): Pt resides with his spouse. He is independent. Smoking Status: Former smoker Past Alcohol Use History: Daily, Heavy Additional Past Alcohol Use History / Comment(s): Pt started smoking in 1981 and quit in 2018. Pt drinks 6-10 beers daily Past Drug Use History: None Reported - Past Family History Father Family Medical History: Congestive Heart Failure (CHF) Additional Family Medical History / Comment(s): Father of CHF at the age of 68yrs. Mother Family Medical History: No Reported History Additional Family Medical History / Comment(s): Mother at the age of 62 or 63 yrs from myasthenia gravis. Brother(s) Family Medical History: Coronary Artery Disease (CAD) Additional Family Medical History / Comment(s): ONE BROTHER HAD CABG Sister(s) Family Medical History: Coronary Artery Disease (CAD) Additional Family Medical History / Comment(s): ONE SISTER HAS HEART STENTS. ONE SISTER HAS HAD CABG Medications and Allergies Home Medications Medication Instructions Recorded Confirmed Type Multivitamin [Men's Multi-Vitamin] 1 tab PO DAILY 01/22/14 05/27/24 History Sertraline [Zoloft] 50 mg PO DAILY 05/20/19 05/27/24 History Aspirin EC [Ecotrin Low Dose] 81 mg PO DAILY 07/30/22 05/27/24 History Atorvastatin [Lipitor] 40 mg PO HS 07/30/22 05/27/24 History Losartan [Cozaar] 75 mg PO HS 07/30/22 05/27/24 History Metoprolol Tartrate [Lopressor] 25 mg PO BID 07/30/22 05/27/24 History Spironolactone [Aldactone] 25 mg PO DAILY 07/30/22 05/27/24 History Warfarin [Coumadin] 7.5 mg PO SUTUTHSA@1700 07/30/22 05/27/24 History Empagliflozin [Jardiance] 25 mg PO DAILY 12/09/22 05/27/24 History Insulin Glargine,Hum.rec.anlog 20 units SQ DAILY 12/09/22 05/27/24 History [Lantus Solostar Pen] Isosorbide Mononitrate ER [Imdur] 30 mg PO DAILY 12/09/22 05/27/24 History Ranolazine [Ranexa] 500 mg PO BID 12/09/22 05/27/24 History metFORMIN HCL [Glucophage] 500 mg PO BID@0900,1700 12/09/22 05/27/24 History Furosemide [Lasix] 40 mg PO TID 06/27/23 05/27/24 History Warfarin [Coumadin] 10 mg PO MOWEFR@1700 06/27/23 05/27/24 History Famotidine [Pepcid] 40 mg PO HS 05/27/24 05/27/24 History Magnesium Oxide [Magnesium] 500 mg PO DAILY 05/27/24 05/27/24 History Tiotropium Br/Olodaterol HCl 2 puff INHALATION RT-DAILY 05/27/24 05/27/24 History [Stiolto Respimat Inhaler (60)] Umeclidinium Brm/Vilanterol Tr 1 puff INHALATION RT-DAILY 05/27/24 05/27/24 History [Anoro Ellipta 62.5-25 Mcg INH] Allergies Allergy/AdvReac Type Severity Reaction Status Date / Time Penicillins Allergy Unknown Verified 05/27/24 07:30 Childhood Physical Examination - Vital Signs Vital Signs: Vital Signs Temp Pulse Pulse Pulse Resp BP BP 05/27/24 16:10 97.4 F L 89 18 133/62 05/27/24 16:04 84 05/27/24 15:51 80 05/27/24 15:09 86 18 115/73 05/27/24 12:16 78 05/27/24 12:08 87 05/27/24 11:00 86 13 121/71 05/27/24 10:00 91 16 120/69 05/27/24 09:00 89 15 124/72 05/27/24 08:21 90 05/27/24 08:14 05/27/24 08:11 82 05/27/24 08:06 84 14 134/90 05/27/24 08:04 84 18 124/82 05/27/24 05:35 81 05/27/24 05:25 73 05/27/24 04:00 98.0 F 78 14 139/90 05/27/24 03:00 127/73 05/27/24 02:00 127/73 05/27/24 01:00 75 14 142/87 05/27/24 00:38 05/27/24 00:00 81 14 132/80 05/26/24 23:53 80 18 132/80 05/26/24 23:00 85 18 122/69 05/26/24 22:21 88 18 09/16/24 22:20 146/92 05/26/24 20:46 98.3 F 89 18 166/96 Pulse Ox 05/27/24 16:10 92 L 05/27/24 16:04 05/27/24 15:51 05/27/24 15:09 96 05/27/24 12:16 05/27/24 12:08 05/27/24 11:00 80 L 05/27/24 10:00 88 L 05/27/24 09:00 94 L 05/27/24 08:21 05/27/24 08:14 100 05/27/24 08:11 05/27/24 08:06 96 05/27/24 08:04 96 05/27/24 05:35 05/27/24 05:25 05/27/24 04:00 97 05/27/24 03:00 05/27/24 02:00 05/27/24 01:00 95 05/27/24 00:38 92 L 05/27/24 00:00 93 L 05/26/24 23:53 95 05/26/24 23:00 91 L 05/26/24 22:21 91 L 05/26/24 22:20 88 L 05/26/24 20:46 95 Intake and Output 05/27/24 05/27/24 05/27/24 06:59 14:59 22:59 Output Total 450 Balance -450 Output: Urine 450 Other: Weight 125.191 kg Patient is an elderly male, in no acute distress. Patient is alert awake oriented to time place and person. Speech and language functions are normal. Patient can name and repeat very well. No aphasia or dysarthria. Attention, concentration and fund of knowledge is adequate. On cranial nerve examination, pupils are equal, round and reacting to light, visual santamaria are full on confrontation, with no neglect on double simultaneous stimulation. Extraocular muscles are intact with no nystagmus. Face is symmetric, tongue protrudes to the midline. Palatal elevation and sensation normal, hearing and shoulder shrug normal, facial sensation normal. On muscle strength testing, there is no pronator drift and the strength is normal in arms and legs distally and proximally. Deep tendon reflexes are symmetric 1+ and plantars downgoing. Sensory to touch is equal with no neglect on double simultaneous stimulation. Cerebellar function showed no ataxia for gidyrz-en-yckr testing, although he has mild tremors of outstretched hands. No dysdiadochokinesia. No ataxia for rlvc-ie-seuv testing on either side. Tone and bulk of muscles normal. Gait deferred.. On general examination, there is no carotid bruit or murmur, S1-S2 audible. Chest is clear on consultation. Abdomen is soft nontender. No organomegaly, bowel sounds present. Peripheral pulses are present. No peripheral edema. Results - Laboratory Findings CBC and BMP: 05/26/24 21:11 05/26/24 21:11 Abnormal Lab Findings: Abnormal Labs 05/26/24 05/26/24 05/26/24 21:11 21:11 21:11 WBC 11.1 H PT INR Glucose 100 H POC Glucose (mg/dL) Plasma Lactic Acid Wilfrid 2.9 H* Creatine Kinase 05/26/24 05/26/24 05/27/24 21:11 23:53 06:14 WBC PT 27.3 H INR 2.8 H Glucose POC Glucose (mg/dL) Plasma Lactic Acid Wilfrid 2.1 H* Creatine Kinase 180 H 05/27/24 05/27/24 05/27/24 09:19 12:02 16:30 WBC PT INR Glucose POC Glucose (mg/dL) 142 H 148 H 203 H Plasma Lactic Acid Wilfrid Creatine Kinase Assessment and Plan Assessment: * 59-year-old male, who has been having off-and-on postural dizziness on standing up for the last 6 months, head a syncopal spell without any warning yesterday morning while he was standing, fixing the screen of the door. Patient does not know how long he was out for, although believes it was not for too long. * Rule out orthostatic hypotension, arrhythmia, less likely seizure. * Chronic alcoholism, patient came with alcohol intoxication. Rule out alcoholic blackout. * Atrial fibrillation, on Coumadin * CAD * CHF * COPD * Diabetes * Hypertension * Obstructive sleep apnea Plan: * Carotid Doppler, rule out stenosis. * EEG rule out any epileptiform activity * Check orthostatics * 2D echo revealed left ventricular EF 60 to 65%. Normal left ventricular wall motion. Severely increased left atrial volume. No left atrial thrombus or mass. Mechanical mitral valve. * Patient is on Coumadin, INR is therapeutic 2.8. * Patient also on aspirin 81 mg daily, Lipitor 40 mg. * Fasting a.m. lipid panel, hemoglobin A1c. * Neurology will follow. Thank you for the consult.
--- NOTE | 2024-05-28 13:23 | P.PN ---
Subjective HISTORY OF PRESENT ILLNESS: This is a 59-year-old male with a past medical history significant for coronary artery disease with previous stenting and CABG, mechanical mitral valve replacement, hypertension, hyperlipidemia, paroxysmal atrial fibrillation, morbid obesity, former nicotine dependence, COPD, and daily alcohol use. Patient follows in the office with Dr. Valles. We have been asked to see the patient in consultation for ACS. Patient examined at the bedside in the emergency room. Patient states yesterday he got up to let his dogs out when he began to feel funny and then passed out. He does report losing consciousness. He states that his dog woke him up by licking his face. He is unsure of how long he was laying on the ground. The patient does report having pain in his legs and some mild chest discomfort afterwards. He also reports having some shortness of breath the past few days going up and down the stairs. At the time of examination, he denies any chest pain or pressure. He denies any shortness of breath. The p atient was found to be acutely intoxicated upon arrival with an alcohol level of 135. However the patient states he had not started drinking when he had his syncopal episode. He states he started drinking beer shortly after this episode. DIAGNOSTICS: - EKG reveals sinus mechanism with right bundle branch block - Chest xray cardiomegaly mild pulmonary vascular congestion - Laboratory data: WBC 11.1. Hemoglobin 15.3. INR 2.8. D-dimer 0.57. Sodium 137. Potassium 3.5. BUN 10. Creatinine 0.75. Lactic acid 2.1. Troponin 0.025. 0.016. 0.023. proBNP 122. Serum alcohol 135. - Current home cardiac medications include Coumadin 10 mg Sunday and 7.5 mg Sunday, Lipitor 40 mg at night, losartan 75 mg at night, Aldactone 25 mg daily, Ranexa 500 mg twice a day, metoprolol tartrate 25 mg twice a day, Imdur 30 mg daily, Jardiance 25 mg daily, aspirin 81 mg daily, Lasix 40 mg 3 times daily - Most recent echocardiogram obtained in February 2024 revealed ejection fraction 55%, mild LVH, severely dilated LA, normally functioning mechanical mitral valve , mild to moderate tricuspid regurg - Cardiac catheterization history: October 2022 revealing dominant RCA, calcified chronically occluded left main calcified 50% lesion. LAD heavily calcified with mild to moderate diffuse disease, circumflex occluded, SVG to circumflex and BINTA to RCA are both patent. 05/28/2024 Patient examined this morning at the bedside. Patient currently denies chest pain or pressure. He denies shortness of breath. He denies dizziness or lightheadedness. He remains on Coumadin. INR 3.2 today. Echocardiogram completed revealing ejection fraction 60 to 65%, mild pulmonary hypertension, mechanical valve replacement with mean gradient of 14 mmHg, mild TR. Carotid D oppler performed revealing no focal stenosis of internal carotid arteries but likely greater than 70% severe stenosis of bilateral external carotid arteries. PHYSICAL EXAM: VITAL SIGNS: Reviewed. GENERAL: Well-developed in no acute distress. HEENT: Head is normocephalic. Pupils are equal, round. Sclerae anicteric. Mucous membranes of the mouth are moist. Neck supple. No JVD or thyromegaly LUNGS: Respirations even and unlabored. Lungs essentially clear to auscultation bilaterally. HEART: Regular rate and rhythm. S1 and S2 heard. Mechanical click noted ABDOMEN: Soft. Nondistended. Nontender. EXTREMITIES: Normal range of motion. No clubbing or cyanosis. Peripheral pulses intact. No lower extremity edema NEUROLOGIC: Awake and alert. Oriented x 3. ASSESSMENT: Syncope Acute alcohol intoxication Coronary artery disease with previous stenting and subsequent CABG x 2 vessel, 08/2018 with BINTA to RCA and SVG to second OM branch of circumflex Mechanical mitral valve replacement, 08/2018 Paroxysmal atrial fibrillation Chronic heart failure with preserved EF, currently euvolemic Hypertension Hyperlipidemia Former nicotine dependence COPD Obstructive sleep apnea Obesity: BMI 37.4 Diabetes Alcohol abuse, patient reports 6-10 beers daily Biateral external carotid artery stenosis, no internal carotid artery stenosis identified on Doppler PLAN: Continue current cardiac medications Continue telemetry monitoring to assess for any arrhythmias Continue Coumadin. Monitor INR Per Dr. Piña, consult vascular for findings on carotid ultrasound Abstinence from alcohol recommended Further recommendations pending patient course Nurse practitioner note has been reviewed by physician. Signing provider agrees with the documented findings, assessment, and plan of care documented by TRIGONOMETRY TEACHER as a scribe. Objective - Vital Signs Vital signs: Vital Signs Temp 97.6 F 05/28/24 07:59 Pulse 76 05/28/24 11:32 Resp 16 05/28/24 11:10 BP 114/68 05/28/24 11:10 Pulse Ox 94 L 05/28/24 11:10 FiO2 Intake & Output 05/27/24 05/28/24 05/28/24 18:59 06:59 18:59 Intake Total 898 610 Output Total 500 1550 1050 Balance 398 -1550 -440 Weight 125.191 kg 128.7 kg Intake: IV 10 Invasive Line 2 10 Oral 898 600 Output: Urine 500 1550 1050 Other: Voiding Method Urinal Urinal - Labs CBC & Chem 7: 05/26/24 21:11 05/26/24 21:11 Labs: Abnormal Lab Results - Last 24 Hours (Table) 05/27/24 05/27/24 05/28/24 Range/Units 16:30 19:51 05:54 PT (10.0-12.5) sec INR (<1.2) POC Glucose (mg/dL) 203 H 185 H 171 H (70-110) mg/dL 05/28/24 05/28/24 Range/Units 06:13 11:42 PT 31.4 H (10.0-12.5) sec INR 3.2 H (<1.2) POC Glucose (mg/dL) 189 H (70-110) mg/dL
--- NOTE | 2024-05-28 16:09 | P.GSCN ---
History of Present Illness Consult date: 05/28/24 Reason for Consult: Carotid stenosis Requesting physician: Jamie Piña History of present illness: This is a 59-year-old male with a past medical history significant for coronary artery disease with previous stenting and CABG, mechanical mitral valve replacement, hypertension, hyperlipidemia, paroxysmal atrial fibrillation, morbid obesity, former nicotine dependence, COPD, and daily alcohol use. Patient follows in the office with Dr. Valles. Patient states 2 days ago he got up to let his dogs out his groin door had come off and he went to put it on and then passed out. He does not recall if he had felt dizzy prior to passing out but states that he has had dizzy episodes in the past. He does report losing consciousness. He states that his dog woke him up by licking his face. He is unsure of how long he was laying on the ground. He does report shortness of breath and chest pain when he woke up. The patient was found to be acutely intoxicated upon arrival with an alcohol level of 135. However the patient states he had not started drinking when he had his syncopal episode. He states he started drinking beer shortly after this episode. Patient states he drinks 6-10 beers daily. Neurology was consulted for syncopal episode and part of his workup carotid duplex was ordered with the impression stating no focal stenosis identified within the internal carotid arteries. Severe stenosis, likely greater than 70% noted within the carotid arteries bilaterally. Vascular surgery was consulted for carotid stenosis. Review of Systems A 14 point review systems was completed all pertinent positives and negatives as stated in the HPI. Past Medical History Past Medical History: Atrial Fibrillation, Coronary Artery Disease (CAD), Chest Pain / Angina, Heart Failure, COPD, Diabetes Mellitus, GERD/Reflux, Hyperlipidemia, Hypertension, Myocardial Infarction (AK), Mitral Valve Prolapse (MVP), Pneumonia, Sleep Apnea/CPAP/BIPAP Additional Past Medical History / Comment(s): DIVERTICULITIS. ALEISHA with Cpap use Last Myocardial Infarction Date:: 2017 History of Any Multi-Drug Resistant Organisms: None Reported Past Surgical History: Appendectomy, Coronary Bypass/CABG, Heart Catheterization With Stent Additional Past Surgical History / Comment(s): 2018 PCI with stent, 2018 CABG 2 vessel with mitral valve replacement, cardioversion x 3, DYLAN x2, EGD, colonoscopy, stress test done Past Anesthesia/Blood Transfusion Reactions: No Reported Reaction Date of Last Stent Placement:: 01/22/18 Past Psychological History: No Psychological Hx Reported Additional Psychological History / Comment(s): Pt resides with his spouse. He is independent. Smoking Status: Former smoker Past Alcohol Use History: Daily, Heavy Additional Past Alcohol Use History / Comment(s): Pt started smoking in 1981 and quit in 2017. Pt drinks 6-10 beers daily Past Drug Use History: None Reported - Past Family History Father Family Medical History: Congestive Heart Failure (CHF) Additional Family Medical History / Comment(s): Father of CHF at the age of 68yrs. Mother Family Medical History: No Reported History Additional Family Medical History / Comment(s): Mother at the age of 62 or 63 yrs from myasthenia gravis. Brother(s) Family Medical History: Coronary Artery Disease (CAD) Additional Family Medical History / Comment(s): ONE BROTHER HAD CABG Sister(s) Family Medical History: Coronary Artery Disease (CAD) Additional Family Medical History / Comment(s): ONE SISTER HAS HEART STENTS. ONE SISTER HAS HAD CABG Medications and Allergies Home Medications Medication Instructions Recorded Confirmed Type Multivitamin [Men's Multi-Vitamin] 1 tab PO DAILY 01/22/14 05/27/24 History Sertraline [Zoloft] 50 mg PO DAILY 05/20/19 05/27/24 History Aspirin EC [Ecotrin Low Dose] 81 mg PO DAILY 07/30/22 05/27/24 History Atorvastatin [Lipitor] 40 mg PO HS 07/30/22 05/27/24 History Losartan [Cozaar] 75 mg PO HS 07/30/22 05/27/24 History Metoprolol Tartrate [Lopressor] 25 mg PO BID 07/30/22 05/27/24 History Spironolactone [Aldactone] 25 mg PO DAILY 07/30/22 05/27/24 History Warfarin [Coumadin] 7.5 mg PO SUTUTHSA@1700 07/30/22 05/27/24 History Empagliflozin [Jardiance] 25 mg PO DAILY 12/09/22 05/27/24 History Insulin Glargine,Hum.rec.anlog 20 units SQ DAILY 12/09/22 05/27/24 History [Lantus Solostar Pen] Isosorbide Mononitrate ER [Imdur] 30 mg PO DAILY 12/09/22 05/27/24 History Ranolazine [Ranexa] 500 mg PO BID 12/09/22 05/27/24 History metFORMIN HCL [Glucophage] 500 mg PO BID@0900,1700 12/09/22 05/27/24 History Furosemide [Lasix] 40 mg PO TID 06/27/23 05/27/24 History Warfarin [Coumadin] 10 mg PO MOWEFR@1700 06/27/23 05/27/24 History Famotidine [Pepcid] 40 mg PO HS 05/27/24 05/27/24 History Magnesium Oxide [Magnesium] 500 mg PO DAILY 05/27/24 05/27/24 History Tiotropium Br/Olodaterol HCl 2 puff INHALATION RT-DAILY 05/27/24 05/27/24 History [Stiolto Respimat Inhaler (60)] Umeclidinium Brm/Vilanterol Tr 1 puff INHALATION RT-DAILY 05/27/24 05/27/24 History [Anoro Ellipta 62.5-25 Mcg INH] Allergies Allergy/AdvReac Type Severity Reaction Status Date / Time Penicillins Allergy Unknown Verified 05/27/24 07:30 Childhood Surgical - Exam Vital Signs Temp Pulse Resp BP Pulse Ox 98.3 F 89 18 166/96 95 05/26/24 20:46 05/26/24 20:46 05/26/24 20:46 05/26/24 20:46 05/26/24 20:46 General appearance: The patient is alert, oriented, appears in no acute distress. HET: Head is normocephalic and atraumatic. Pupils are equal and reactive. Neck: Supple. No carotid bruit. Heart: Regular. Lungs: Equal expansion, normal respiratory effort. Abdomen: Soft, nontender, nondistended. Extremities: Normal skin color and turgor. Neurological: No focal deficits. Strength and sensation are grossly intact. Results - Labs 05/26/24 21:11 05/26/24 21:11 Abnormal Lab Results - Last 24 Hours (Table) 05/27/24 05/27/24 05/28/24 Range/Units 16:30 19:51 05:54 PT (10.0-12.5) sec INR (<1.2) POC Glucose (mg/dL) 203 H 185 H 171 H (70-110) mg/dL 05/28/24 05/28/24 Range/Units 06:13 11:42 PT 31.4 H (10.0-12.5) sec INR 3.2 H (<1.2) POC Glucose (mg/dL) 189 H (70-110) mg/dL - Imaging Comments: Carotid duplex right ICA PSV 84.6, ICA/CCA ratio 1.1. Left ICA PSV 98.4, ICA/CCA ratio 0.9. Impression states no focal stenosis identified within internal carotid arteries. Severe stenosis, likely greater than 70% is noted within the carotid arteries bilaterally. Carotid ultrasound independently reviewed, 70% stenosis in the external Carotid arteries without any significant stenosis in bilateral internal carotid arteries. Echocardiogram preserved LV size and function mildly enlarged right ventricle severe left atrial enlargement mechanical mitral valve, gradient [address] without any acute findings Assessment and Plan Assessment: 1. Syncopal episode 2. No ICA stenosis per carotid duplex. 70% stenosis of external carotid arteries 3. Alcohol intoxication 4. Alcohol abuse, daily alcohol use 5. History of coronary artery disease 6. Mechanical mitral valve replacement 7. Atrial fibrillation Plan: Carotid ultrasound reviewed. Unclear etiology of syncope may be secondary to alcohol abuse, dehydration, cardiac or other possible etiology. There is no evidence of bilateral ICA stenosis. External stenosis reported at 70% and not likely to cause syncopal episode. No further workup indicated from vascular surgery. There is no indication for any vascular surgical intervention or foll ow-up at this time. Thank you for this consultation, we will sign off at this time. The impression and plan of care has been dictated as directed. I performed a history and examination of this patient, discussed the same with the dictator. I agree with the dictator's note ,documented as a scribe. Any additional findings or plans will be noted.
[2024-05-28] MEDS ORDERED: WARFARIN 10 MG TAB PO SCH (17:00)
[2024-05-28 17:02] LABS: Glucose,Whole Blood 122 mg/dL (70-110)
[2024-05-28] MEDS: WARFARIN 5 MG TAB PO ONE (17:09)
[2024-05-28 20:01] LABS: Glucose,Whole Blood 158 mg/dL (70-110)
--- NOTE | 2024-05-29 00:40 | EEG ---
ELECTROENCEPHALOGRAM REPORT PREAMBLE: This is a 59-year-old male with syncopal spell. EEG FINDINGS: This is a 21-channel digital EEG recorded with video component, utilizing 10/20 international system with referential and bipolar montages. Background consists of well developed, well regulated moderate voltage activity in 9 to 10 hertz alpha. Background is posterior dominant and reactive to eye opening and closing. Photic driving response was seen with some flash frequencies. Drowsiness was seen with appearance of bilaterally symmetric theta frequency rhythm. Deeper stages of sleep were not seen. No focal or generalized epileptiform activity was seen. EKG channel showed no obvious arrhythmia. Hyperventilation not done. IMPRESSION: This is a normal awake and drowsy EEG. No focal, lateralized, or epileptiform activity was seen. MMODL / IJN: [id number] /
[2024-05-29 06:06] LABS: Glucose,Whole Blood 142 mg/dL (70-110)
[2024-05-29 06:29] LABS: HCT 39.1 % (39.0-53.0); HGB 12.9 gm/dL (13.0-17.5); MCH 32.2 pg (25.0-35.0); MCHC 32.9 g/dL (31.0-37.0); Mean Platelet Volume 8.4; Platelet Count 179 k/uL (150-450); RBC 3.99 m/uL (4.30-5.90); RDW 13.6 % (11.5-15.5); WBC 7.8 k/uL (3.8-10.6)
[2024-05-29 06:33] LABS: INR 2.6 (<1.2); Prothrombin Time 25.9 sec (10.0-12.5)
--- NOTE | 2024-05-29 08:35 | P.PN ---
Subjective Progress Note Date: 05/29/24 This is a 59-year-old male who presented to the emergency department after a fall at home which resulted in acute lower back pain. Patient does have a history of COPD, sleep apnea not atrial fibrillation, and diabetes. Patient reported some shortness of breath after falling and pulmonary has been consult ed. Troponin elevated in the emergency department, patient does report chest pain and cardiology has been consulted. Patient admits to frequent alcohol use, reportedly drinking 10 beers a day. Alcohol level on admission was 135. 05/29/2024 Patient seen and evaluated sitting in bedside chair this morning. He reports he is still feeling somewhat weak and off balance. He was evaluated by vascular surgeon yesterday, who has signed off. Patient also reporting some shortness of breath with activity. Objective - Vital Signs Vital signs: Vital Signs Temp 98.1 F 05/29/24 04:45 Pulse 76 05/29/24 08:04 Resp 17 05/29/24 04:45 BP 119/78 05/29/24 04:45 Pulse Ox 94 L 05/29/24 04:45 FiO2 Intake & Output 05/28/24 05/29/24 05/29/24 18:59 06:59 18:59 Intake Total 620 560 Output Total 1750 2100 Balance -1130 -1540 Weight 128.4 kg Intake: IV 20 20 Invasive Line 2 20 20 Oral 600 540 Output: Urine 1750 2100 Other: Voiding Method Urinal Urinal - Constitutional General appearance: Present: cooperative, no acute distress - EENT Eyes: Present: PERRLA - Neck Neck: Present: normal ROM. Absent: lymphadenopathy, rigidity - Respiratory Respiratory: bilateral: CTA - Cardiovascular Heart sounds: normal: S1, S2 - Gastrointestinal General gastrointestinal: Present: soft. Absent: tenderness - Integumentary Integumentary: Present: normal, normal turgor - Musculoskeletal Musculoskeletal: Present: generalized weakness - Psychiatric Psychiatric: Present: A&O x's 3 - Labs CBC & Chem 7: 05/29/24 06:11 05/26/24 21:11 Labs: Abnormal Lab Results - Last 24 Hours (Table) 05/28/24 05/28/24 05/28/24 Range/Units 11:42 16:59 20:00 RBC (4.30-5.90) m/uL Hgb (13.0-17.5) gm/dL PT (10.0-12.5) sec INR (<1.2) POC Glucose (mg/dL) 189 H 122 H 158 H (70-110) mg/dL 05/29/24 05/29/24 05/29/24 Range/Units 06:03 06:11 06:11 RBC 3.99 L (4.30-5.90) m/uL Hgb 12.9 L (13.0-17.5) gm/dL PT 25.9 H (10.0-12.5) sec INR 2.6 H (<1.2) POC Glucose (mg/dL) 142 H (70-110) mg/dL Assessment and Plan (1) Chest pain Current Visit: Yes Status: Acute Code(s): R07.9 - CHEST PAIN, UNSPECIFIED SNOMED Code(s): 83076889 (2) Fall Current Visit: Yes Status: Acute Code(s): W19.XXXA - UNSPECIFIED FALL, INITIAL ENCOUNTER SNOMED Code(s): 3746472 (3) Alcohol abuse Current Visit: Yes Status: Chronic Code(s): F10.10 - ALCOHOL ABUSE, UNCOMPLICATED SNOMED Code(s): 31003889 (4) CAD (coronary artery disease) Current Visit: Yes Status: Chronic Code(s): I25.10 - ATHSCL HEART DISEASE OF [place] CORONARY ARTERY W/O ANG PCTRS SNOMED Code(s): 77372162 (5) COPD (chronic obstructive pulmonary disease) Current Visit: Yes Status: Chronic Code(s): J44.9 - CHRONIC OBSTRUCTIVE PULMONARY DISEASE, UNSPECIFIED SNOMED Code(s): 94343837 (6) History of mitral valve replacement Current Visit: No Status: Acute Code(s): Z95.2 - PRESENCE OF PROSTHETIC HEART VALVE SNOMED Code(s): 7610259802877 (7) Hypertension Current Visit: No Status: Chronic Code(s): I10 - ESSENTIAL (PRIMARY) HYPERTENSION SNOMED Code(s): 83396284 (8) Sleep apnea Current Visit: No Status: Chronic Code(s): G47.30 - SLEEP APNEA, UNSPECIFIED SNOMED Code(s): 56755066 Plan: Consult to PT and OT for evaluation Plan for possible discharge tomorrow. Patient seen and evaluated by nurse practitioner, physician in agreement with plan
[2024-05-29 10:32] LABS: ALT 23 U/L (10-49); AST 23 U/L (14-35); Albumin 3.9 g/dL (3.8-4.9); Alkaline Phosphatase 74 U/L (41-126); Blood Urea Nitrogen 13.2 mg/dL (9.0-27.0); Calcium 8.8 mg/dL (8.7-10.3); Carbon Dioxide 24.2 mmol/L (21.6-31.8); Chloride 100 mmol/L (96-109); Chol/HDL Ratio 2.52 Ratio; Glucose 130 mg/dL (70-110); Potassium 3.6 mmol/L (3.5-5.5); Sodium 137 mmol/L (135-145); Total Bilirubin 1.5 mg/dL (0.3-1.2); VLDL Calculation 19.04 mg/dL (5.00-40.00)
--- NOTE | 2024-05-29 11:35 | P.PN ---
Subjective Progress Note Date: 05/29/24 Principal diagnosis: Shortness of breath. Patient is 59-year-old male with past medical history significant for COPD, obstructive sleep apnea with home CPAP machine, mitral valve regurgitation status post replacement, proximal atrial fibrillation, coronary artery disease with previous coronary stents and bypass surgery, high blood pressure, hyperlipidemia, diabetes mellitus type 2, and obesity. Patient does follow in the pulmonary office with Dr. Garcia. His primary care provider is Dr. Valderrama. Patient presents the emergency department last night after a fall. He reportedly fell through his screen door. He states he may have lost consciousness briefly. He was found to be intoxicated. Serum alcohol level 135. He drinks approximately, ten 12 ounce beers per day. No obvious head trauma. Does take Coumadin outpatient. Chief concern is some acute lower back pain. P ain is actually localized off to the left. Does admit some [id number] in his left lower extremity. No saddle anesthesia or bowel or bladder incontinence. We were asked to evaluate the patient as his COPD was felt to be active in the ED. He states that his shortness of breath started after falling. No reports of vomiting or aspiration. He denies recent sick contacts. No URI like symptoms. Denies fever or chills. Endorses occasional cough with minimal yellow sputum production. His left sided chest is sore, which is reproducible with manipulation. Chest x-ray showing cardiomegaly and mild PVC. NT proBNP low. No obvious focal infiltrates or pneumonia. No pleural effusions or pneumothoraces. CBC: WBC count 11.1, hemoglobin 15.3, hematocrit 46.7, platelets 210. CMP: Sodium 137, potassium 3.5, chloride 99, serum bicarb 23, BUN 10, creatinine 0.75, glucose 100. Lactic 2.9 down to 1.1. LFTs unremarkable. Troponin 0.025 and 0.16 respectively. CPK 180. Saline infusing at 130 mL/h. Patient currently being evaluated in the emergency department, room 25. He is on 2 L/min nasal cannula. SpO2 97%. Nontachypneic. Afebrile. No acute respiratory distress.. Progress note dated May 28, 2024. The patient is seen today in room 374. He is resting comfortably in bed. He is on room air. No IV fluids. His breathing is improved. He was admitted with a diagnosis of COPD exacerbation. He typically sees one of my partners in the office for his COPD. Labs today include a PTT of 31.4, INR 3.2. Glucose is 171. Progress note dated May 29, 2024. 59-year-old male who is seen today in room 374. The patient appears to be doing relatively well. He is on room air. He is not receiving any IV fluids. Room air saturation is between 90 to 92%. He does admit to shortness of breath when he exerts himself. Current labs include a white count of 7.8, hemoglobin 12.9, hematocrit 39.1, and a normal platelet count. PT 25.9 with an INR of 2.6. Sodium 137, potassium 3.6, chlorides 100, CO2 24, BUN 13, creatinine 0.8. Glucose is 142. The rest of the labs look okay. Objective - Vital Signs Vital signs: Vital Signs Temp 98.4 F 05/29/24 11:06 Pulse 70 05/29/24 11:06 Resp 15 05/29/24 11:06 BP 102/65 05/29/24 11:06 Pulse Ox 92 L 05/29/24 11:06 FiO2 Intake & Output 05/28/24 05/29/24 05/29/24 18:59 06:59 18:59 Intake Total 575 618 1156 Output Total 1750 2100 900 Balance -1130 -1540 190 Weight 128.4 kg Intake: IV 20 20 10 Invasive Line 2 20 20 10 Oral 448 338 8353 Output: Urine 1750 2100 900 Other: Voiding Method Urinal Urinal - Exam No acute distress, oriented 3. Currently on room air. HEENT examination is grossly unremarkable. Mucous membranes are moist. No oral lesions. Neck supple. Full range of motion. No adenopathy thyromegaly or neck vein distention. Cardiovascular examination reveals regular rhythm rate. S1-S2 normal. No S3 or S4. No discernible murmur noted. Lungs reveal minimal scattered rhonchi. No wheezes or crackles. Saturations are excellent. Abdomen soft bowel sounds are heard. No masses or tenderness. Extremities are intact. No cyanosis clubbing or edema. Skin is without rash or lesion. Neurologic examination is brief but nonfocal. - Labs CBC & Chem 7: 05/29/24 06:11 05/29/24 06:11 Labs: Abnormal Lab Results - Last 24 Hours (Table) 05/28/24 05/28/24 05/28/24 Range/Units 11:42 16:59 20:00 RBC (4.30-5.90) m/uL Hgb (13.0-17.5) gm/dL PT (10.0-12.5) sec INR (<1.2) Anion Gap (4.00-12.00) mmol/L Glucose (70-110) mg/dL POC Glucose (mg/dL) 189 H 122 H 158 H (70-110) mg/dL Hemoglobin A1c (<=6.0) % Total Bilirubin (0.3-1.2) mg/dL Total Protein (6.2-8.2) g/dL 05/29/24 05/29/24 05/29/24 Range/Units 06:03 06:11 06:11 RBC (4.30-5.90) m/uL Hgb (13.0-17.5) gm/dL PT 25.9 H (10.0-12.5) sec INR 2.6 H (<1.2) Anion Gap (4.00-12.00) mmol/L Glucose (70-110) mg/dL POC Glucose (mg/dL) 142 H (70-110) mg/dL Hemoglobin A1c 6.7 H (<=6.0) % Total Bilirubin (0.3-1.2) mg/dL Total Protein (6.2-8.2) g/dL 05/29/24 05/29/24 Range/Units 06:11 06:11 RBC 3.99 L (4.30-5.90) m/uL Hgb 12.9 L (13.0-17.5) gm/dL PT (10.0-12.5) sec INR (<1.2) Anion Gap 12.80 H (4.00-12.00) mmol/L Glucose 130 H (70-110) mg/dL POC Glucose (mg/dL) (70-110) mg/dL Hemoglobin A1c (<=6.0) % Total Bilirubin 1.5 H (0.3-1.2) mg/dL Total Protein 6.0 L (6.2-8.2) g/dL Assessment and Plan Assessment: S/P fall. Alcohol intoxication serum alcohol level 135. Possible acute COPD exacerbation. Acute hypoxemic respiratory failure, possibly secondary to above. Moderate chronic obstructive pulmonary disease, with FEV1 67% of predicted. Obstructive sleep apnea, maintained on VPAP auto with a minimum pressure of 10 and a maximum pressure of 20. Coronary artery disease, with previous coronary stents and subsequent coronary artery bypass surgery. History of severe mitral valve regurgitation status post mechanical mitral valve replacement 2017. History of paroxysmal atrial fibrillation. Benign essential hypertension. Hyperlipidemia. Diabetes mellitus type 2. History of GERD without esophagitis. Obesity with a BMI of 37.4 kg/m. Alcoholism, drinks 10, 12 ounce beers per day. Ex-smoker. Plan: Plan dated May 28, 2024. The patient is seen today room 374. The patient appears to be doing relatively well. The patient is currently on room air. No IV fluids. He is not admitting to any significant shortness of breath. In fact, shortness of breath, has improved. Labs, x-rays, and all medications are reviewed. Additional rec ommendations and suggestions are forthcoming. Plan dated May 29, 2024. The patient is on room air. Saturations are in the low 90s. I suspect that is his baseline. He does have shortness of breath on exertion. Labs, x-rays, medications are reviewed. From the pulmonary standpoint, the patient could be considered for possible discharge. Labs, x-rays, and medications are reviewed. Prognosis is guarded. Time with Patient: Less than 30
[2024-05-29 11:55] LABS: Glucose,Whole Blood 121 mg/dL (70-110)
--- NOTE | 2024-05-29 13:13 | P.PN ---
Subjective HISTORY OF PRESENT ILLNESS: This is a 59-year-old male with a past medical history significant for coronary artery disease with previous stenting and CABG, mechanical mitral valve replacement, hypertension, hyperlipidemia, paroxysmal atrial fibrillation, morbid obesity, former nicotine dependence, COPD, and daily alcohol use. Patient follows in the office with Dr. Valles. We have been asked to see the patient in consultation for ACS. Patient examined at the bedside in the emergency room. Patient states yesterday he got up to let his dogs out when he began to feel funny and then passed out. He does report losing consciousness. He states that his dog woke him up by licking his face. He is unsure of how long he was laying on the ground. The patient does report having pain in his legs and some mild chest discomfort afterwards. He also reports having some shortness of breath the past few days going up and down the stairs. At the time of examination, he denies any chest pain or pressure. He denies any shortness of breath. The p atient was found to be acutely intoxicated upon arrival with an alcohol level of 135. However the patient states he had not started drinking when he had his syncopal episode. He states he started drinking beer shortly after this episode. DIAGNOSTICS: - EKG reveals sinus mechanism with right bundle branch block - Chest xray cardiomegaly mild pulmonary vascular congestion - Laboratory data: WBC 11.1. Hemoglobin 15.3. INR 2.8. D-dimer 0.57. Sodium 137. Potassium 3.5. BUN 10. Creatinine 0.75. Lactic acid 2.1. Troponin 0.025. 0.016. 0.023. proBNP 122. Serum alcohol 135. - Current home cardiac medications include Coumadin 10 mg Sunday and 7.5 mg Sunday, Lipitor 40 mg at night, losartan 75 mg at night, Aldactone 25 mg daily, Ranexa 500 mg twice a day, metoprolol tartrate 25 mg twice a day, Imdur 30 mg daily, Jardiance 25 mg daily, aspirin 81 mg daily, Lasix 40 mg 3 times daily - Most recent echocardiogram obtained in February 2024 revealed ejection fraction 55%, mild LVH, severely dilated LA, normally functioning mechanical mitral valve , mild to moderate tricuspid regurg - Cardiac catheterization history: October 2022 revealing dominant RCA, calcified chronically occluded left main calcified 50% lesion. LAD heavily calcified with mild to moderate diffuse disease, circumflex occluded, SVG to circumflex and BINTA to RCA are both patent. 05/28/2024 Patient examined this morning at the bedside. Patient currently denies chest pain or pressure. He denies shortness of breath. He denies dizziness or lightheadedness. He remains on Coumadin. INR 3.2 today. Echocardiogram completed revealing ejection fraction 60 to 65%, mild pulmonary hypertension, mechanical valve replacement with mean gradient of 14 mmHg, mild TR. Carotid D oppler performed revealing no focal stenosis of internal carotid arteries but likely greater than 70% severe stenosis of bilateral external carotid arteries. 05/29/2024 Patient examined this morning at the bedside. Patient currently denies chest pain or pressure. He denies shortness of breath. He does report that he felt dizzy when he was up working with therapy today. Most recent blood pressure 102/65. PHYSICAL EXAM: VITAL SIGNS: Reviewed. GENERAL: Well-developed in no acute distress. HEENT: Head is normocephalic. Pupils are equal, round. Sclerae anicteric. Mucous membranes of the mouth are moist. Neck supple. No JVD or thyromegaly LUNGS: Respirations even and unlabored. Lungs essentially clear to auscultation bilaterally. HEART: Regular rate and rhythm. S1 and S2 heard. Mechanical click noted ABDOMEN: Soft. Nondistended. Nontender. EXTREMITIES: Normal range of motion. No clubbing or cyanosis. Peripheral pulses intact. No lower extremity edema NEUROLOGIC: Awake and alert. Oriented x 3. ASSESSMENT: Syncope Acute alcohol intoxication Coronary artery disease with previous stenting and subsequent CABG x 2 vessel, 08/2018 with BINTA to RCA and SVG to second OM branch of circumflex Mechanical mitral valve replacement, 08/2018 Paroxysmal atrial fibrillation Chronic heart failure with preserved EF, currently euvolemic Hypertension Hyperlipidemia Former nicotine dependence COPD Obstructive sleep apnea Obesity: BMI 37.4 Diabetes Alcohol abuse, patient reports 6-10 beers daily Biateral external carotid artery stenosis, no internal carotid artery stenosis identified on Doppler PLAN: Continue current cardiac medications Continue telemetry monitoring to assess for any arrhythmias Continue Coumadin. Monitor INR Decrease losartan to 25 mg at night Recheck orthostatic blood pressures tomorrow Abstinence from alcohol recommended Patient to receive 30-day event monitor at discharge Further recommendations pending patient course Nurse practitioner note has been reviewed by physician. Signing provider agrees with the documented findings, assessment, and plan of care documented by [employer] as a scribe. Objective - Vital Signs Vital signs: Vital Signs Temp 98.4 F 05/29/24 11:06 Pulse 68 05/29/24 11:42 Resp 15 05/29/24 11:06 BP 102/65 05/29/24 11:06 Pulse Ox 92 L 05/29/24 11:06 FiO2 Intake & Output 05/28/24 05/29/24 05/29/24 18:59 06:59 18:59 Intake Total 340 179 2204 Output Total 1750 2100 900 Balance -1130 -1540 190 Weight 128.4 kg Intake: IV 20 20 10 Invasive Line 2 20 20 10 Oral 914 [id number] 5006 Output: Urine 1750 2100 900 Other: Voiding Method Urinal Urinal - Labs CBC & Chem 7: 05/29/24 06:11 05/29/24 06:11 Labs: Abnormal Lab Results - Last 24 Hours (Table) 05/28/24 05/28/24 05/29/24 Range/Units 16:59 20:00 06:03 RBC (4.30-5.90) m/uL Hgb (13.0-17.5) gm/dL PT (10.0-12.5) sec INR (<1.2) Anion Gap (4.00-12.00) mmol/L Glucose (70-110) mg/dL POC Glucose (mg/dL) 122 H 158 H 142 H (70-110) mg/dL Hemoglobin A1c (<=6.0) % Total Bilirubin (0.3-1.2) mg/dL Total Protein (6.2-8.2) g/dL 05/29/24 05/29/24 05/29/24 Range/Units 06:11 06:11 06:11 RBC 3.99 L (4.30-5.90) m/uL Hgb 12.9 L (13.0-17.5) gm/dL PT 25.9 H (10.0-12.5) sec INR 2.6 H (<1.2) Anion Gap (4.00-12.00) mmol/L Glucose (70-110) mg/dL POC Glucose (mg/dL) (70-110) mg/dL Hemoglobin A1c 6.7 H (<=6.0) % Total Bilirubin (0.3-1.2) mg/dL Total Protein (6.2-8.2) g/dL 05/29/24 05/29/24 Range/Units 06:11 11:54 RBC (4.30-5.90) m/uL Hgb (13.0-17.5) gm/dL PT (10.0-12.5) sec INR (<1.2) Anion Gap 12.80 H (4.00-12.00) mmol/L Glucose 130 H (70-110) mg/dL POC Glucose (mg/dL) 121 H (70-110) mg/dL Hemoglobin A1c (<=6.0) % Total Bilirubin 1.5 H (0.3-1.2) mg/dL Total Protein 6.0 L (6.2-8.2) g/dL
--- NOTE | 2024-05-29 14:50 | P.PN ---
Subjective Progress Note Date: 05/28/24 Patient was seen for a follow-up. Patient is sitting comfortably in bed. Having dinner. Offers no complaints. Objective - Vital Signs Vital signs: Vital Signs Temp 98.1 F 05/28/24 15:29 Pulse 78 05/28/24 15:47 Resp 16 05/28/24 15:29 BP 127/68 05/28/24 15:29 Pulse Ox 90 L 05/28/24 15:29 FiO2 Intake & Output 05/27/24 05/28/24 05/28/24 18:59 06:59 18:59 Intake Total 898 620 Output Total 500 1550 1050 Balance 398 -1550 -430 Weight 125.191 kg 128.7 kg Intake: IV 20 Invasive Line 2 20 Oral 898 600 Output: Urine 500 1550 1050 Other: Voiding Method Urinal Urinal - Exam Nonfocal. - Labs CBC & Chem 7: 05/29/24 06:11 05/29/24 06:11 Labs: Abnormal Lab Results - Last 24 Hours (Table) 05/27/24 05/28/24 05/28/24 Range/Units 19:51 05:54 06:13 PT 31.4 H (10.0-12.5) sec INR 3.2 H (<1.2) POC Glucose (mg/dL) 185 H 171 H (70-110) mg/dL 05/28/24 05/28/24 Range/Units 11:42 16:59 PT (10.0-12.5) sec INR (<1.2) POC Glucose (mg/dL) 189 H 122 H (70-110) mg/dL Assessment and Plan Assessment: * 59-year-old male, who has been having off-and-on postural dizziness on standing up for the last 6 months, head a syncopal spell without any warning yesterday morning while he was standing, fixing the screen of the door. Patient does not know how long he was out for, although believes it was not for too long. * Rule out orthostatic hypotension, arrhythmia, less likely seizure. * Chronic alcoholism, patient came with alcohol intoxication. Rule out alcoho lic blackout. * Atrial fibrillation, on Coumadin * CAD * CHF * COPD * Diabetes * Hypertension * Obstructive sleep apnea Plan: * Carotid Doppler, revealed no focal stenosis identified within the internal carotid arteries bilaterally. Greater than 70% stenosis identified in the external carotid arteries bilaterally. * EEG was normal awake and drowsy. No focal, lateralized or epileptiform activity was seen. * Orthostatics were checked. Supine blood pressure 113/62, sitting was 136/74 and standing 142/67. Orthostatics negative. * 2D echo revealed left ventricular EF 60 to 65%. Normal left ventricular wall motion. Severely increased left atrial volume. No left atrial thrombus or mass. Mechanical mitral valve. * Patient is on Coumadin, INR is therapeutic 2.8. * Patient also on aspirin 81 mg daily, Lipitor 40 mg. * Fasting a.m. lipid panel cholesterol 146, LDL 69, HDL 58 and triglycerides 95. Continue Lipitor 40 mg daily. * Hemoglobin A1c 6.7. Diabetes is well-controlled. * Cardiology following, recommending 30-day event monitoring. * Neurologically, no other workup indicated. Neurologically clear.
[2024-05-29 17:08] LABS: Glucose,Whole Blood 166 mg/dL (70-110)
[2024-05-29] MEDS: WARFARIN 7.5 MG TAB PO ONE (17:42)
[2024-05-29] MEDS: LOSARTAN 25 MG TAB PO SCH (20:41)
[2024-05-30 06:08] LABS: Glucose,Whole Blood 126 mg/dL (70-110)
[2024-05-30 08:42] LABS: INR 1.6 (<1.2); Prothrombin Time 16.8 sec (10.0-12.5)
[2024-05-30 08:46] VITALS: RESP 16
--- NOTE | 2024-05-30 11:34 | P.PN ---
Subjective Progress Note Date: 05/29/24 Patient was seen for a follow-up. Patient is sitting comfortably in bed. Offers no complaints. No further syncopal spells. Objective - Vital Signs Vital signs: Vital Signs Temp 97.9 F 05/30/24 10:55 Pulse 67 05/30/24 10:55 Resp 16 05/30/24 10:55 BP 105/67 05/30/24 10:55 Pulse Ox 92 L 05/30/24 10:55 FiO2 Intake & Output 05/29/24 05/30/24 05/30/24 18:59 06:59 18:59 Intake Total 1880 20 730 Output Total 2099 1924 1899 Balance -220 -1905 -1170 Weight 127.9 kg Intake: IV 20 20 10 Invasive Line 2 20 20 10 Oral 1860 720 Output: Urine 2099 1924 1899 Other: Voiding Method Urinal Urinal - Exam Nonfocal. Mentation normal. Strength normal. Cranial nerves normal. - Labs CBC & Chem 7: 05/29/24 06:11 05/29/24 06:11 Labs: Abnormal Lab Results - Last 24 Hours (Table) 05/29/24 05/29/24 05/30/24 Range/Units 11:54 17:07 06:06 PT (10.0-12.5) sec INR (<1.2) POC Glucose (mg/dL) 121 H 166 H 126 H (70-110) mg/dL 05/30/24 Range/Units 07:15 PT 16.8 H (10.0-12.5) sec INR 1.6 H (<1.2) POC Glucose (mg/dL) (70-110) mg/dL Assessment and Plan Assessment: * 59-year-old male, who has been having off-and-on postural dizziness on standing up for the last 6 months, head a syncopal spell without any warning yesterday morning while he was standing, fixing the screen of the door. Patient does not know how long he was out for, although believes it was not for too long. * Orthostatics negative. EEG normal. Doubt seizure. * Chronic alcoholism, patient came with alcohol intoxication. Possible alcoholic blackout. * Atrial fibrillation, on Coumadin * CAD * CHF * COPD * Diabetes * Hypertension * Obstructive sleep apnea Plan: * Carotid Doppler, revealed no focal stenosis identified within the internal carotid arteries bilaterally. Greater than 70% stenosis identified in the external carotid arteries bilaterally. * EEG was normal awake and drowsy. No focal, lateralized or epileptiform activity was seen. * Orthostatics were checked. Supine blood pressure 113/62, sitting was 136/74 and standing 142/67. Orthostatics negative. Patient states that his blood pressure drops when he is walking for some time. Cardiology on board, addressing, adjusting his cardiac medications. * 2D echo revealed left ventricular EF 60 to 65%. Normal left ventricular wall motion. Severely increased left atrial volume. No left atrial thrombus or mass. Mechanical mitral valve. * Patient is on Coumadin, INR is therapeutic 2.6. * Patient also on aspirin 81 mg daily, Lipitor 40 mg. * Fasting a.m. lipid panel cholesterol 146, LDL 69, HDL 58 and triglycerides 95. Continue Lipitor 40 mg daily. * Hemoglobin A1c 6.7. Diabetes is well-controlled. * Cardiology following, recommending 30-day event monitoring. * Neurologically, no other workup indicated. Neurologically clear.
[2024-05-30 11:48] LABS: Glucose,Whole Blood 111 mg/dL (70-110)
[2024-05-30 12:04] LABS: INR 1.6 (<1.2); Prothrombin Time 16.4 sec (10.0-12.5)
--- NOTE | 2024-05-30 12:51 | P.PN ---
Subjective Progress Note Date: 05/30/24 This is a 59-year-old male who presented to the emergency department after a fall at home which resulted in acute lower back pain. Patient does have a history of COPD, sleep apnea not atrial fibrillation, and diabetes. Patient reported some shortness of breath after falling and pulmonary has been consult ed. Troponin elevated in the emergency department, patient does report chest pain and cardiology has been consulted. Patient admits to frequent alcohol use, reportedly drinking 10 beers a day. Alcohol level on admission was 135. 05/29/2024 Patient seen and evaluated sitting in bedside chair this morning. He reports he is still feeling somewhat weak and off balance. He was evaluated by vascular surgeon yesterday, who has signed off. Patient also reporting some shortness of breath with activity. 05/30. Dr. Hale took over care. INR this morning is subtherapeutic. Continue pharmacy dose Coumadin REVIEW OF SYSTEMS: CONSTITUTIONAL: No fever, no malaise,. CARDIOVASCULAR: No chest pain, no palpitations, no syncope. PULMONARY: No shortness of breath, no cough, GASTROINTESTINAL: No diarrhea, no nausea, no vomiting, no abdominal pain. NEUROLOGICAL: No headaches, no weakness, PHYSICAL EXAMINATION: GENERAL: The patient is alert and oriented x3, not in any acute distress. Well d eveloped, well nourished. HEENT: Pupils are round and equally reacting to light. EOMI. No scleral icterus. No conjunctival pallor. Normocephalic, atraumatic. No pharyngeal erythema. No thyromegaly. CARDIOVASCULAR: S1 and S2 present. No murmurs, rubs, or gallops. PULMONARY: Chest is clear to auscultation, no wheezing or crackles. ABDOMEN: Soft, nontender, nondistended, normoactive bowel sounds. No palpable organomegaly. MUSCULOSKELETAL: No joint swelling or deformity. EXTREMITIES: No cyanosis, clubbing, or pedal edema. NEUROLOGICAL: Gross neurological examination did not reveal any focal deficits. SKIN: No rashes. Assessment and plan fall. Alcohol intoxication serum alcohol level 135. Possible acute COPD exacerbation. Acute hypoxemic respiratory failure, possibly secondary to above. [place] chronic obstructive pulmonary disease, with FEV1 67% of predicted. Obstructive sleep apnea, maintained on VPAP auto with a minimum pressure of 10 and a maximum pressure of 20. Coronary artery disease, with previous coronary stents and subsequent coronary artery bypass surgery. History of severe mitral valve regurgitation status post mechanical mitral valve replacement 2018. history of paroxysmal atrial fibrillation. Benign essential hypertension. Hyperlipidemia. Diabetes mellitus type 2. History of GERD without esophagitis. Obesity with a BMI of 37.4 kg/m. Alcoholism, drinks 10, 12 ounce beers per day. Ex-smoker. Monitor vital signs Monitor CBC Monitor CMP Continue telemetry monitoring Encourage use of incentive spirometer Continue aspirin, Lipitor Continue Bumex Continue Cozaar Continue Coumadin pharmacy to dose Cardiology following Pulmonology following Labs and medication were reviewed.. Continue same treatment. Continue with symptomatic treatment. Resume home medication. Monitor labs and vitals. DVT and GI prophylaxis. Further recommendations as per clinical course of the patient Dictation was produced using [employer] dictation software. please excuse any grammatical, word or spelling errors. Objective - Vital Signs Vital signs: Vital Signs Temp 98.4 F 05/30/24 07:31 Pulse 76 05/30/24 08:36 Resp 16 05/30/24 07:31 BP 125/76 05/30/24 07:31 Pulse Ox 94 L 05/30/24 07:31 FiO2 Intake & Output 05/29/24 05/30/24 05/30/24 18:59 06:59 18:59 Intake Total 1880 20 730 Output Total 2099 1924 1899 Balance -220 -1905 -1170 Weight 127.9 kg Intake: IV 20 20 10 Invasive Line 2 20 20 10 Oral 1860 720 Output: Urine 2099 1924 1899 Other: Voiding Method Urinal Urinal - Labs CBC & Chem 7: 05/29/24 06:11 05/29/24 06:11 Labs: Abnormal Lab Results - Last 24 Hours (Table) 05/29/24 05/29/24 05/29/24 Range/Units 06:11 11:54 17:07 PT (10.0-12.5) sec INR (<1.2) Anion Gap 12.80 H (4.00-12.00) mmol/L Glucose 130 H (70-110) mg/dL POC Glucose (mg/dL) 121 H 166 H (70-110) mg/dL Total Bilirubin 1.5 H (0.3-1.2) mg/dL Total Protein 6.0 L (6.2-8.2) g/dL 05/30/24 05/30/24 Range/Units 06:06 07:15 PT 16.8 H (10.0-12.5) sec INR 1.6 H (<1.2) Anion Gap (4.00-12.00) mmol/L Glucose (70-110) mg/dL POC Glucose (mg/dL) 126 H (70-110) mg/dL Total Bilirubin (0.3-1.2) mg/dL Total Protein (6.2-8.2) g/dL
--- NOTE | 2024-05-30 13:05 | P.PN ---
Subjective HISTORY OF PRESENT ILLNESS: This is a 59-year-old male with a past medical history significant for coronary artery disease with previous stenting and CABG, mechanical mitral valve replacement, hypertension, hyperlipidemia, paroxysmal atrial fibrillation, morbid obesity, former nicotine dependence, COPD, and daily alcohol use. Patient follows in the office with Dr. Valles. We have been asked to see the patient in consultation for ACS. Patient examined at the bedside in the emergency room. Patient states yesterday he got up to let his dogs out when he began to feel funny and then passed out. He does report losing consciousness. He states that his dog woke him up by licking his face. He is unsure of how long he was laying on the ground. The patient does report having pain in his legs and some mild chest discomfort afterwards. He also reports having some shortness of breath the past few days going up and down the stairs. At the time of examination, he denies any chest pain or pressure. He denies any shortness of breath. The p atient was found to be acutely intoxicated upon arrival with an alcohol level of 135. However the patient states he had not started drinking when he had his syncopal episode. He states he started drinking beer shortly after this episode. DIAGNOSTICS: - EKG reveals sinus mechanism with right bundle branch block - Chest xray cardiomegaly mild pulmonary vascular congestion - Laboratory data: WBC 11.1. Hemoglobin 15.3. INR 2.8. D-dimer 0.57. Sodium 137. Potassium 3.5. BUN 10. Creatinine 0.75. Lactic acid 2.1. Troponin 0.025. 0.016. 0.023. proBNP 122. Serum alcohol 135. - Current home cardiac medications include Coumadin 10 mg Sunday and 7.5 mg Sunday, Lipitor 40 mg at night, losartan 75 mg at night, Aldactone 25 mg daily, Ranexa 500 mg twice a day, metoprolol tartrate 25 mg twice a day, Imdur 30 mg daily, Jardiance 25 mg daily, aspirin 81 mg daily, Lasix 40 mg 3 times daily - Most recent echocardiogram obtained in February 2024 revealed ejection fraction 55%, mild LVH, severely dilated LA, normally functioning mechanical mitral valve , mild to moderate tricuspid regurg - Cardiac catheterization history: October 2022 revealing dominant RCA, calcified chronically occluded left main calcified 50% lesion. LAD heavily calcified with mild to moderate diffuse disease, circumflex occluded, SVG to circumflex and BINTA to RCA are both patent. 05/28/2024 Patient examined this morning at the bedside. Patient currently denies chest pain or pressure. He denies shortness of breath. He denies dizziness or lightheadedness. He remains on Coumadin. INR 3.2 today. Echocardiogram completed revealing ejection fraction 60 to 65%, mild pulmonary hypertension, mechanical valve replacement with mean gradient of 14 mmHg, mild TR. Carotid D oppler performed revealing no focal stenosis of internal carotid arteries but likely greater than 70% severe stenosis of bilateral external carotid arteries. 05/29/2024 Patient examined this morning at the bedside. Patient currently denies chest pain or pressure. He denies shortness of breath. He does report that he felt dizzy when he was up working with therapy today. Most recent blood pressure 102/65. 05/30/2024 Patient examined this morning at the bedside. Patient currently denies chest pain or pressure. He denies shortness of breath. Currently denies any dizziness or lightheadedness. Patient's INR today is 1.6. He has been maintained on Coumadin. PHYSICAL EXAM: VITAL SIGNS: Reviewed. GENERAL: Well-developed in no acute distress. HEENT: Head is normocephalic. Pupils are equal, round. Sclerae anicteric. Mucous membranes of the mouth are moist. Neck supple. No JVD or thyromegaly LUNGS: Respirations even and unlabored. Lungs essentially clear to auscultation bilaterally. HEART: Regular rate and rhythm. S1 and S2 heard. Mechanical click noted ABDOMEN: Soft. Nondistended. Nontender. EXTREMITIES: Normal range of motion. No clubbing or cyanosis. Peripheral pulses intact. No lower extremity edema NEUROLOGIC: Awake and alert. Oriented x 3. ASSESSMENT: Syncope Acute alcohol intoxication Coronary artery disease with previous stenting and subsequent CABG x 2 vessel, 08/2018 with BINTA to RCA and SVG to second OM branch of circumflex Mechanical mitral valve replacement, 08/2018 Paroxysmal atrial fibrillation Chronic heart failure with preserved EF, currently euvolemic Hypertension Hyperlipidemia Former nicotine dependence COPD Obstructive sleep apnea Obesity: BMI 37.4 Diabetes Alcohol abuse, patient reports 6-10 beers daily Biateral external carotid artery stenosis, no internal carotid artery stenosis identified on Doppler PLAN: Continue current cardiac medications Continue Coumadin. INR today 1.6. No need to bridge with Lovenox at discharge per Dr. Piña. Patient to have his INR checked on Sunday at the [facility]. Abstinence from alcohol recommended Patient received 30-day event monitor today Stable for discharge home today Nurse practitioner note has been reviewed by physician. Signing provider agrees with the documented findings, assessment, and plan of care documented by PATIENT CARE as a scribe. Objective - Vital Signs Vital signs: Vital Signs Temp 98.2 F 05/30/24 04:12 Pulse 80 05/30/24 05:18 Resp 18 05/30/24 04:12 BP 120/68 05/30/24 04:12 Pulse Ox 91 L 05/30/24 04:12 FiO2 Intake & Output 05/29/24 05/30/24 05/30/24 18:59 06:59 18:59 Intake Total 1880 20 Output Total 2100 1925 Balance -220 -1905 Weight 127.9 kg Intake: IV 20 20 Invasive Line 2 20 20 Oral 1860 Output: Urine 2099 1924 Other: Voiding Method Urinal - Labs CBC & Chem 7: 05/29/24 06:11 05/29/24 06:11 Labs: Abnormal Lab Results - Last 24 Hours (Table) 05/29/24 05/29/24 05/29/24 Range/Units 06:11 06:11 11:54 Anion Gap 12.80 H (4.00-12.00) mmol/L Glucose 130 H (70-110) mg/dL POC Glucose (mg/dL) 121 H (70-110) mg/dL Hemoglobin A1c 6.7 H (<=6.0) % Total Bilirubin 1.5 H (0.3-1.2) mg/dL Total Protein 6.0 L (6.2-8.2) g/dL 05/29/24 05/30/24 Range/Units 17:07 06:06 Anion Gap (4.00-12.00) mmol/L Glucose (70-110) mg/dL POC Glucose (mg/dL) 166 H 126 H (70-110) mg/dL Hemoglobin A1c (<=6.0) % Total Bilirubin (0.3-1.2) mg/dL Total Protein (6.2-8.2) g/dL
--- NOTE | 2024-05-30 14:17 | P.PN ---
Subjective Progress Note Date: 05/30/24 Principal diagnosis: Shortness of breath. Patient is 59-year-old male with past medical history significant for COPD, obstructive sleep apnea with home CPAP machine, mitral valve regurgitation status post replacement, proximal atrial fibrillation, coronary artery disease with previous coronary stents and bypass surgery, high blood pressure, hyperlipidemia, diabetes mellitus type 2, and obesity. Patient does follow in the pulmonary office with Dr. Garcia. His primary care provider is Dr. Valderrama. Patient presents the emergency department last night after a fall. He reportedly fell through his screen door. He states he may have lost consciousness briefly. He was found to be intoxicated. Serum alcohol level 135. He drinks approximately, ten 12 ounce beers per day. No obvious head trauma. Does take Coumadin outpatient. Chief concern is some acute lower back pain. P ain is actually localized off to the left. Does admit some ueqj-iut-alkpjus in his left lower extremity. No saddle anesthesia or bowel or bladder incontinence. We were asked to evaluate the patient as his COPD was felt to be active in the ED. He states that his shortness of breath started after falling. No reports of vomiting or aspiration. He denies recent sick contacts. No URI like symptoms. Denies fever or chills. Endorses occasional cough with minimal yellow sputum production. His left sided chest is sore, which is reproducible with manipulation. Chest x-ray showing cardiomegaly and mild PVC. NT proBNP low. No obvious focal infiltrates or pneumonia. No pleural effusions or pneumothoraces. CBC: WBC count 11.1, hemoglobin 15.3, hematocrit 46.7, platelets 210. CMP: Sodium 137, potassium 3.5, chloride 99, serum bicarb 23, BUN 10, creatinine 0.75, glucose 100. Lactic 2.9 down to 1.1. LFTs unremarkable. Troponin 0.025 and 0.16 respectively. CPK 180. Saline infusing at 130 mL/h. Patient currently being evaluated in the emergency department, room 25. He is on 2 L/min nasal cannula. SpO2 97%. Nontachypneic. Afebrile. No acute respiratory distress.. Progress note dated May 28, 2024. The patient is seen today in room 374. He is resting comfortably in bed. He is on room air. No IV fluids. His breathing is improved. He was admitted with a diagnosis of COPD exacerbation. He typically sees one of my partners in the office for his COPD. Labs today include a PTT of 31.4, INR 3.2. Glucose is 171. Progress note dated May 29, 2024. 59-year-old male who is seen today in room 374. The patient appears to be doing relatively well. He is on room air. He is not receiving any IV fluids. Room air saturation is between 90 to 92%. He does admit to shortness of breath when he exerts himself. Current labs include a white count of 7.8, hemoglobin 12.9, hematocrit 39.1, and a normal platelet count. PT 25.9 with an INR of 2.6. Sodium 137, potassium 3.6, chlorides 100, CO2 24, BUN 13, creatinine 0.8. Glucose is 142. The rest of the labs look okay. Progress note dated May 30, 2024. 59-year-old male seen today in room 374. From the pulmonary standpoint, the patient is doing well. He is on room air. No IV fluids. The only labs today include a PT of 16.4 and an INR of 1.6 and a glucose of 111. Objective - Vital Signs Vital signs: Vital Signs Temp 97.9 F 05/30/24 10:55 Pulse 72 05/30/24 12:04 Resp 16 05/30/24 10:55 BP 105/67 05/30/24 10:55 Pulse Ox 92 L 05/30/24 10:55 FiO2 Intake & Output 05/29/24 05/30/24 05/30/24 18:59 06:59 18:59 Intake Total 1880 20 740 Output Total 2099 1924 4150 Balance -220 -1905 -3410 Weight 127.9 kg Intake: IV 20 20 20 Invasive Line 2 20 20 20 Oral 1860 720 Output: Urine 2099 1924 4149 Other: Voiding Method Urinal Urinal - Exam No acute distress, oriented 3. Currently on room air. HEENT examination is grossly unremarkable. Mucous membranes are moist. No oral lesions. Neck supple. Full range of motion. No adenopathy thyromegaly or neck vein distention. Cardiovascular examination reveals regular rhythm rate. S1-S2 normal. No S3 or S4. No discernible murmur noted. Lungs reveal minimal scattered rhonchi. No wheezes or crackles. Saturations are excellent. Abdomen soft bowel sounds are heard. No masses or tenderness. Extremities are intact. No cyanosis clubbing or edema. Skin is without rash or lesion. Neurologic examination is brief but nonfocal. - Labs CBC & Chem 7: 05/29/24 06:11 05/29/24 06:11 Labs: Abnormal Lab Results - Last 24 Hours (Table) 05/29/24 05/30/24 05/30/24 Range/Units 17:07 06:06 07:15 PT 16.8 H (10.0-12.5) sec INR 1.6 H (<1.2) POC Glucose (mg/dL) 166 H 126 H (70-110) mg/dL 05/30/24 05/30/24 Range/Units 11:27 11:47 PT 16.4 H (10.0-12.5) sec INR 1.6 H (<1.2) POC Glucose (mg/dL) 111 H (70-110) mg/dL Assessment and Plan Assessment: S/P fall. Alcohol intoxication serum alcohol level 135. Possible acute COPD exacerbation. Acute hypoxemic respiratory failure, possibly secondary to above. Moderate chronic obstructive pulmonary disease, with FEV1 67% of predicted. Obstructive sleep apnea, maintained on VPAP auto with a minimum pressure of 10 and a maximum pressure of 20. Coronary artery disease, with previous coronary stents and subsequent coronary artery bypass surgery. History of severe mitral valve regurgitation status post mechanical mitral valve replacement 2017. History of paroxysmal atrial fibrillation. Benign essential hypertension. Hyperlipidemia. Diabetes mellitus type 2. History of GERD without esophagitis. Obesity with a BMI of 37.4 kg/m. Alcoholism, drinks 10, 12 ounce beers per day. Ex-smoker. Plan: Plan dated May 28, 2024. The patient is seen today room 374. The patient appears to be doing relatively well. The patient is currently on room air. No IV fluids. He is not admitting to any significant shortness of breath. In fact, shortness of breath, has improved. Labs, x-rays, and all medications are reviewed. Additional recommendations and suggestions are forthcoming. Plan dated May 29, 2024. The patient is on room air. Saturations are in the low 90s. I suspect that is his baseline. He does have shortness of breath on exertion. Labs, x-rays, medications are reviewed. From the pulmonary standpoint, the patient could be considered for possible discharge. Labs, x-rays, and medications are reviewed. Prognosis is guarded. Plan dated June 07, 2024. The patient continues on room air. No IV fluids. His respiratory status is stable. He does have some mild shortness of breath when he gets up to use the bathroom. He denies any coughing, wheezing, or phlegm production. Labs, x- rays, and all medications are reviewed. We will continue to follow the patient, make recommendations along the way. The patient is overall prognosis remains guarded. He needs to follow-up with my partner after discharge. Time with Patient: Less than 30
[2024-05-30 16:09] LABS: Glucose,Whole Blood 138 mg/dL (70-110)
--- NOTE | 2024-05-30 16:57 | P.PN ---
Subjective Progress Note Date: 05/30/24 Patient was seen for a follow-up. Patient is sitting comfortably in bed. Offers no complaints. No further syncopal spells. Patient states that he has been walking good, he has not been feeling dizzy or near syncopal. Patient in the hospital because his INR has further dropped down to 1.6. Objective - Vital Signs Vital signs: Vital Signs Temp 97.9 F 05/30/24 15:25 Pulse 76 05/30/24 15:59 Resp 16 05/30/24 15:25 BP 112/68 05/30/24 15:25 Pulse Ox 93 L 05/30/24 15:25 FiO2 Intake & Output 05/29/24 05/30/24 05/30/24 18:59 06:59 18:59 Intake Total 1880 20 1280 Output Total 2100 1925 5500 Balance -220 -1905 -4220 Weight 127.9 kg Intake: IV 20 20 20 Invasive Line 2 20 20 20 Oral 1860 1260 Output: Urine 2099 1924 5500 Other: Voiding Method Urinal Urinal - Exam Nonfocal. Mentation normal. Strength normal. Cranial nerves normal. - Labs CBC & Chem 7: 05/29/24 06:11 05/29/24 06:11 Labs: Abnormal Lab Results - Last 24 Hours (Table) 05/29/24 05/30/24 05/30/24 Range/Units 17:07 06:06 07:15 PT 16.8 H (10.0-12.5) sec INR 1.6 H (<1.2) POC Glucose (mg/dL) 166 H 126 H (70-110) mg/dL 05/30/24 05/30/24 05/30/24 Range/Units 11:27 11:47 16:07 PT 16.4 H (10.0-12.5) sec INR 1.6 H (<1.2) POC Glucose (mg/dL) 111 H 138 H (70-110) mg/dL Assessment and Plan Assessment: * 59-year-old male, who has been having off-and-on postural dizziness on sta nding up for the last 6 months, head a syncopal spell without any warning yesterday morning while he was standing, fixing the screen of the door. Patient does not know how long he was out for, although believes it was not for too long. * Orthostatics negative. EEG normal. Doubt seizure. * Chronic alcoholism, patient came with alcohol intoxication. Possible alcoholic blackout. * Atrial fibrillation, on Coumadin * CAD * CHF * COPD * Diabetes * Hypertension * Obstructive sleep apnea Plan: * Carotid Doppler, revealed no focal stenosis identified within the internal carotid arteries bilaterally. Greater than 70% stenosis identified in the external carotid arteries bilaterally. * EEG was normal awake and drowsy. No focal, lateralized or epileptiform activity was seen. * Orthostatics were checked. Supine blood pressure 113/62, sitting was 136/74 and standing 142/67. Orthostatics negative. Patient yesterday stated that his blood pressure drops when he is walking for some time. Cardiology on board, addressing, adjusting his cardiac medications. Patient today states that now he is not feeling any more orthostatic/near syncopal with walking. * 2D echo revealed left ventricular EF 60 to 65%. Normal left ventricular wall motion. Severely increased left atrial volume. No left atrial thrombus or mass. Mechanical mitral valve. * Patient is on Coumadin, INR is subtherapeutic today 1.6. Recommend INR between 2-3. * Patient also on aspirin 81 mg daily, Lipitor 40 mg. * Fasting a.m. lipid panel cholesterol 146, LDL 69, HDL 58 and triglycerides 95. Continue Lipitor 40 mg daily. * Hemoglobin A1c 6.7. Diabetes is well-controlled. * Cardiology following, recommending 30-day event monitoring. * Neurologically, no other workup indicated. Neurology will sign off.
[2024-05-30] MEDS: WARFARIN 10 MG TAB PO ONE (16:58)
[2024-05-30 21:45] LABS: Glucose,Whole Blood 132 mg/dL (70-110)
[2024-05-31 06:39] LABS: Glucose,Whole Blood 113 mg/dL (70-110)
[2024-05-31 07:02] LABS: INR 1.6 (<1.2); Prothrombin Time 16.5 sec (10.0-12.5)
[2024-05-31 07:37] VITALS: BP 132/79; TEMP 97.5
[2024-05-31 08:50] VITALS: PULSE 70
--- NOTE | 2024-05-31 10:47 | P.PN ---
Subjective Progress Note Date: 05/31/24 Principal diagnosis: Shortness of breath. Patient is 59-year-old male with past medical history significant for COPD, obstructive sleep apnea with home CPAP machine, mitral valve regurgitation status post replacement, proximal atrial fibrillation, coronary artery disease with previous coronary stents and bypass surgery, high blood pressure, hyperlipidemia, diabetes mellitus type 2, and obesity. Patient does follow in the pulmonary office with Dr. Garcia. His primary care provider is Dr. Valderrama. Patient presents the emergency department last night after a fall. He reportedly fell through his screen door. He states he may have lost consciousness briefly. He was found to be intoxicated. Serum alcohol level 135. He drinks approximately, ten 12 ounce beers per day. No obvious head trauma. Does take Coumadin outpatient. Chief concern is some acute lower back pain. P ain is actually localized off to the left. Does admit some [id number] in his left lower extremity. No saddle anesthesia or bowel or bladder incontinence. We were asked to evaluate the patient as his COPD was felt to be active in the ED. He states that his shortness of breath started after falling. No reports of vomiting or aspiration. He denies recent sick contacts. No URI like symptoms. Denies fever or chills. Endorses occasional cough with minimal yellow sputum production. His left sided chest is sore, which is reproducible with manipulation. Chest x-ray showing cardiomegaly and mild PVC. NT proBNP low. No obvious focal infiltrates or pneumonia. No pleural effusions or pneumothoraces. CBC: WBC count 11.1, hemoglobin 15.3, hematocrit 46.7, platelets 210. CMP: Sodium 137, potassium 3.5, chloride 99, serum bicarb 23, BUN 10, creatinine 0.75, glucose 100. Lactic 2.9 down to 1.1. LFTs unremarkable. Troponin 0.025 and 0.16 respectively. CPK 180. Saline infusing at 130 mL/h. Patient currently being evaluated in the emergency department, room 25. He is on 2 L/min nasal cannula. SpO2 97%. Nontachypneic. Afebrile. No acute respiratory distress.. Progress note dated May 28, 2024. The patient is seen today in room 374. He is resting comfortably in bed. He is on room air. No IV fluids. His breathing is improved. He was admitted with a diagnosis of COPD exacerbation. He typically sees one of my partners in the office for his COPD. Labs today include a PTT of 31.4, INR 3.2. Glucose is 171. Progress note dated May 29, 2024. 59-year-old male who is seen today in room 374. The patient appears to be doing relatively well. He is on room air. He is not receiving any IV fluids. Room air saturation is between 90 to 92%. He does admit to shortness of breath when he exerts himself. Current labs include a white count of 7.8, hemoglobin 12.9, hematocrit 39.1, and a normal platelet count. PT 25.9 with an INR of 2.6. Sodium 137, potassium 3.6, chlorides 100, CO2 24, BUN 13, creatinine 0.8. Glucose is 142. The rest of the labs look okay. Progress note dated May 30, 2024. 59-year-old male seen today in room 374. From the pulmonary standpoint, the patient is doing well. He is on room air. No IV fluids. The only labs today include a PT of 16.4 and an INR of 1.6 and a glucose of 111. Progress note dated May 31, 2024. 59-year-old male seen today in room 374. He continues on room air. No IV fluids. Saturation is 95%. The patient is INR is 1.6. It appears that they may want to keep him in the hospital, until he is therapeutic, with an INR between 2 and 3. Other than mild shortness of breath on exertion, the patient appears to be doing well. The only other blood test, was a glucose of 113. He has no new complaints today. Objective - Vital Signs Vital signs: Vital Signs Temp 97.5 F L 05/31/24 07:30 Pulse 70 05/31/24 08:49 Resp 16 05/31/24 07:30 BP 132/79 05/31/24 07:30 Pulse Ox 97 05/31/24 08:39 FiO2 Intake & Output 05/30/24 05/31/24 05/31/24 18:59 06:59 18:59 Intake Total 1400 1100 1210 Output Total 6100 1900 2200 Balance -4700 -800 -990 Weight 126.915 kg Intake: IV 20 20 10 Invasive Line 2 20 20 10 Oral 1380 1080 1200 Output: Urine 6100 1900 2200 Other: Voiding Method Urinal Urinal Urinal - Exam No acute distress, oriented 3. Currently on room air. HEENT examination is grossly unremarkable. Mucous membranes are moist. No oral lesions. Neck supple. Full range of motion. No adenopathy thyromegaly or neck vein distention. Cardiovascular examination reveals regular rhythm rate. S1-S2 normal. No S3 or S4. No discernible murmur noted. Lungs reveal minimal scattered rhonchi. No wheezes or crackles. Saturations are excellent. Abdomen soft bowel sounds are heard. No masses or tenderness. Extremities are intact. No cyanosis clubbing or edema. Skin is without rash or lesion. Neurologic examination is brief but nonfocal. - Labs CBC & Chem 7: 05/29/24 06:11 05/29/24 06:11 Labs: Abnormal Lab Results - Last 24 Hours (Table) 05/30/24 05/30/24 05/30/24 Range/Units 11:27 11:47 16:07 PT 16.4 H (10.0-12.5) sec INR 1.6 H (<1.2) POC Glucose (mg/dL) 111 H 138 H (70-110) mg/dL 05/30/24 05/31/24 05/31/24 Range/Units 21:44 06:33 06:38 PT 16.5 H (10.0-12.5) sec INR 1.6 H (<1.2) POC Glucose (mg/dL) 132 H 113 H (70-110) mg/dL Assessment and Plan Assessment: S/P fall. Alcohol intoxication serum alcohol level 135. Possible acute COPD exacerbation. Acute hypoxemic respiratory failure, possibly secondary to above. Moderate chronic obstructive pulmonary disease, with FEV1 67% of predicted. Obstructive sleep apnea, maintained on VPAP auto with a minimum pressure of 10 and a maximum pressure of 20. Coronary artery disease, with previous coronary stents and subsequent coronary artery bypass surgery. History of severe mitral valve regurgitation status post mechanical mitral valve replacement 2017. History of paroxysmal atrial fibrillation. Benign essential hypertension. Hyperlipidemia. Diabetes mellitus type 2. History of GERD without esophagitis. Obesity with a BMI of 37.4 kg/m. Alcoholism, drinks 10, 12 ounce beers per day. Ex-smoker. Plan: Plan dated May 28, 2024. The patient is seen today room 374. The patient appears to be doing relatively well. The patient is currently on room air. No IV fluids. He is not admitting to any significant shortness of breath. In fact, shortness of breath, has improved. Labs, x-rays, and all medications are reviewed. Additional recommendations and suggestions are forthcoming. Plan dated May 29, 2024. The patient is on room air. Saturations are in the low 90s. I suspect that is his baseline. He does have shortness of breath on exertion. Labs, x-rays, medications are reviewed. From the pulmonary standpoint, the patient could be considered for possible discharge. Labs, x-rays, and medications are reviewed. Prognosis is guarded. Plan dated May 30, 2024. The patient continues on room air. No IV fluids. His respiratory status is stable. He does have some mild shortness of breath when he gets up to use the bathroom. He denies any coughing, wheezing, or phlegm production. Labs, x- rays, and all medications are reviewed. We will continue to follow the patient, make recommendations along the way. The patient is overall prognosis remains guarded. He needs to follow-up with my partner after discharge. Plan dated May 31, 2024. The patient is stable. He is on room air. No IV fluids. His INR is 1.6. Not sure what the primary service is doing with this patient, other than may be keeping him in the hospital until his INR is between 2 and 3. He could be potentially discharged, on Lovenox as a bridge. Labs, x-rays, and medications are reviewed. His respiratory status is currently stable. Time with Patient: Less than 30
--- NOTE | 2024-05-31 13:38 | P.DS ---
Providers Date of admission: 05/27/24 00:39 Expected date of discharge: 05/31/24 Attending physician: Chandler Valderrama Consults: 05/27/24 00:39 Consult Physician Routine Consulting Provider: Delmar Garcia Consult Reason/Comments: hypoxia Do you want consulting provider notified?: Yes Consult Physician Routine Consulting Provider: Chinmay Chaparro Consult Reason/Comments: acs Do you want consulting provider notified?: Yes 05/27/24 11:15 Consult Physician Routine Consulting Provider: Franck Garcia Consult Reason/Comments: syncope Do you want consulting provider notified?: Yes Primary care physician: Chandler Valderrama Hospital Course: Discharge diagnoses; fall. Alcohol intoxication serum alcohol level 135. Possible acute COPD exacerbation. Acute hypoxemic respiratory failure, possibly secondary to above. [place] chronic obstructive pulmonary disease, with FEV1 67% of predicted. Obstructive sleep apnea, maintained on VPAP auto with a minimum pressure of 10 and a maximum pressure of 20. Coronary artery disease, with previous coronary stents and subsequent coronary artery bypass surgery. History of severe mitral valve regurgitation status post mechanical mitral valve replacement 2017. history of paroxysmal atrial fibrillation. Benign essential hypertension. Hyperlipidemia. Diabetes mellitus type 2. History of GERD without esophagitis. Obesity with a BMI of 37.4 kg/m. Alcoholism, drinks 10, 12 ounce beers per day. Ex-smoker. Hospital course; This is a 59-year-old male who presented to the emergency department after a fall at home which resulted in acute lower back pain. Patient does have a history of COPD, sleep apnea not atrial fibrillation, and diabetes. Patient reported some shortness of breath after falling and pulmonary has been consulted. Troponin elevated in the emergency department, patient does report chest pain and cardiology has been consulted. Patient admits to frequent alcohol use, reportedly drinking 10 beers a day. Alcohol level on admission was 135. 05/29/2024 Patient seen and evaluated sitting in bedside chair this morning. He reports he is still feeling somewhat weak and off balance. He was evaluated by vascular surgeon yesterday, who has signed off. Patient also reporting some shortness of breath with activity. 05/30. Dr. Hale took over care. INR this morning is subtherapeutic. Continue pharmacy dose Coumadin 05/31. Patient seen and examined. Discussed with cardiology, at this time cardiology do not recommend any Lovenox bridging at discharge, they stated that the patient can be discharged on Coumadin with repeat INR check on Sunday. Patient to follow-up outpatient with PCP to get INR check PHYSICAL EXAMINATION: GENERAL: The patient is alert and oriented x3, not in any acute distress. Well developed, well nourished. HEENT: Pupils are round and equally reacting to light. EOMI. No scleral icterus. No conjunctival pallor. Normocephalic, atraumatic. No pharyngeal erythema. No thyromegaly. CARDIOVASCULAR: S1 and S2 present. No murmurs, rubs, or gallops. PULMONARY: Chest is clear to auscultation, no wheezing or crackles. ABDOMEN: Soft, nontender, nondistended, normoactive bowel sounds. No palpable o rganomegaly. MUSCULOSKELETAL: No joint swelling or deformity. EXTREMITIES: No cyanosis, clubbing, or pedal edema. NEUROLOGICAL: Gross neurological examination did not reveal any focal deficits. SKIN: No rashes. Dictation was produced using [employer] dictation software. please excuse any grammatical, word or spelling errors. Patient Condition at Discharge: Good Plan - Discharge Summary Discharge Rx Participant: No New Discharge Prescriptions: Continue Multivitamin [Men's Multi-Vitamin] 1 tab PO DAILY Sertraline [Zoloft] 50 mg PO DAILY Losartan [Cozaar] 75 mg PO HS Aspirin EC [Ecotrin Low Dose] 81 mg PO DAILY Insulin Glargine,Hum.rec.anlog [Lantus Solostar Pen] 20 units SQ DAILY Isosorbide Mononitrate ER [Imdur] 30 mg PO DAILY Warfarin [Coumadin] 10 mg PO MOWEFR@1700 Umeclidinium Brm/Vilanterol Tr [Anoro Ellipta 62.5-25 Mcg INH] 1 puff INHALATION RT-DAILY Magnesium Oxide [Magnesium] 500 mg PO DAILY Famotidine [Pepcid] 40 mg PO HS Warfarin [Coumadin] 7.5 mg PO SUTUTHSA@1700 Spironolactone [Aldactone] 25 mg PO DAILY Atorvastatin [Lipitor] 40 mg PO HS Metoprolol Tartrate [Lopressor] 25 mg PO BID Empagliflozin [Jardiance] 25 mg PO DAILY metFORMIN HCL [Glucophage] 500 mg PO BID@0900,1700 Ranolazine [Ranexa] 500 mg PO BID Furosemide [Lasix] 40 mg PO TID Tiotropium Br/Olodaterol HCl [Stiolto Respimat Inhaler (60)] 2 puff INHALATION RT-DAILY Discharge Medication List Multivitamin [Men's Multi-Vitamin] 1 tab PO DAILY 01/22/14 [History] Sertraline [Zoloft] 50 mg PO DAILY 05/20/19 [History] Aspirin EC [Ecotrin Low Dose] 81 mg PO DAILY 07/30/22 [History] Atorvastatin [Lipitor] 40 mg PO HS 07/30/22 [History] Losartan [Cozaar] 75 mg PO HS 07/30/22 [History] Metoprolol Tartrate [Lopressor] 25 mg PO BID 07/30/22 [History] Spironolactone [Aldactone] 25 mg PO DAILY 07/30/22 [History] Warfarin [Coumadin] 7.5 mg PO SUTUTHSA@1700 07/30/22 [History] Empagliflozin [Jardiance] 25 mg PO DAILY 12/09/22 [History] Insulin Glargine,Hum.rec.anlog [Lantus Solostar Pen] 20 units SQ DAILY 12/09/22 [History] Isosorbide Mononitrate ER [Imdur] 30 mg PO DAILY 12/09/22 [History] Ranolazine [Ranexa] 500 mg PO BID 12/09/22 [History] metFORMIN HCL [Glucophage] 500 mg PO BID@0900,1700 12/09/22 [History] Furosemide [Lasix] 40 mg PO TID 06/27/23 [History] Warfarin [Coumadin] 10 mg PO MOWEFR@1700 06/27/23 [History] Famotidine [Pepcid] 40 mg PO HS 05/27/24 [History] Magnesium Oxide [Magnesium] 500 mg PO DAILY 05/27/24 [History] Tiotropium Br/Olodaterol HCl [Stiolto Respimat Inhaler (60)] 2 puff INHALATION RT-DAILY 05/27/24 [History] Umeclidinium Brm/Vilanterol Tr [Anoro Ellipta 62.5-25 Mcg INH] 1 puff INHALATION RT-DAILY 05/27/24 [History] Follow up Appointment(s)/Referral(s): Chandler Valderrama MD [Primary Care Provider] - 1-2 days Delmar Garcia DO [Doctor of Osteopathic Medicine] - 2 Weeks Discharge/Stand Alone Forms: AA Meetings [facility], Outpatient Counseling, In Substance Abuse Facilities Discharge Disposition: HOME SELF-CARE
== END 2024-05-31 11:43 | disposition home or self-care (01) | DRG 896 ==
LOC: EC 20:44 → 3SCARD 05-27 00:39
PROVIDERS: ADMIT Family Medicine; ATTEND Family Medicine
DX: F10.229 Alcohol dependence with intoxication, unspecified (principal); J96.01 Acute respiratory failure with hypoxia; J44.1 Chronic obstructive pulmonary disease with (acute) exacerbation; I50.32 Chronic diastolic (congestive) heart failure; I11.0 Hypertensive heart disease with heart failure; E66.01 Morbid (severe) obesity due to excess calories; I71.40 Abdominal aortic aneurysm, without rupture, unspecified; E11.9 Type 2 diabetes mellitus without complications; I48.0 Paroxysmal atrial fibrillation; Z79.4 Long term (current) use of insulin; I65.23 Occlusion and stenosis of bilateral carotid arteries; Z95.3 Presence of xenogenic heart valve; Z68.37 Body mass index [BMI] 37.0-37.9, adult; I25.10 Atherosclerotic heart disease of native coronary artery without angina pectoris; G47.33 Obstructive sleep apnea (adult) (pediatric); E78.5 Hyperlipidemia, unspecified; K21.9 Gastro-esophageal reflux disease without esophagitis; Y90.6 Blood alcohol level of 120-199 mg/100 ml; W13.8XXA Fall from, out of or through other building or structure, initial encounter; Y92.008 Other place in unspecified non-institutional (private) residence as the place of occurrence of the external cause; Z79.01 Long term (current) use of anticoagulants; Z79.82 Long term (current) use of aspirin; Z79.84 Long term (current) use of oral hypoglycemic drugs; Z79.51 Long term (current) use of inhaled steroids; I25.2 Old myocardial infarction; Z79.899 Other long term (current) drug therapy; Z95.5 Presence of coronary angioplasty implant and graft; Z95.1 Presence of aortocoronary bypass graft; Z87.891 Personal history of nicotine dependence
CPT/HCPCS: 36415; 70450; 71046; 72100; 80053; 80061; 80320; 82550; 82607; 82746; 83036; 83605; 83735; 83880; 84425; 84484; 85025; 85027; 85379; 85610; 93005; 93270; 93306; 93880; 94640; 94760; 95816; 96361; 96374; 96375; 96376; 99291